=== PATIENT | female | born 1965 | race African-American/Black ===

== ENCOUNTER 2017-01-31 03:54 | Inpatient (IN) | payer MEDICAID ==
--- NOTE | 2017-01-31 04:43 | ER Document Report ---
ED Extremity Problem, Lower - General Chief Complaint: Leg Injury Stated Complaint: FALL/HIP AND LEG PAIN Time Seen by Provider: 01/31/17 04:32 Notes: Patient is a 51-year-old female who comes emergency department by EMS for chief complaint of right hip and knee pain. She states that she was walking outside with her walker when she tripped and landed with the majority of her weight on her right thigh and hip area. She reports right hip and knee pain. She denies head injury, back injury, back or chest pain. Given 65 mcg of fentanyl by EMS. Patient is not on a blood thinner, she has had a left hip replacement and right knee replacement with additional surgery on her left knee reportedly. Only other reported medical history is GERD and Hodgkin's lymphoma in remission. Not on chemotherapy. TRAVEL OUTSIDE OF THE [place] IN LAST 30 DAYS: No - Related Data Allergies/Adverse Reactions: No Known Allergies Allergy (Verified 09/26/14 11:12) Past Medical History - General Information source: Patient - Social History Smoking Status: Current Every Day Smoker Chew tobacco use (# tins/day): No Frequency of alcohol use: Heavy Drug Abuse: None Lives with: Alone Family History: Reviewed & Not Pertinent Pulmonary Medical History: Reports: Hx COPD Denies: Hx Tuberculosis Malignancy Medical History: Reports: Hx Lymphoma Psychiatric Medical History: Denies: Hx Depression Past Surgical History: Reports: Hx Section, Hx Hysterectomy, Hx Orthopedic Surgery - Left hip replacement, right knee, Hx Tonsillectomy, Hx Tubal Ligation. Denies: Hx Pacemaker - Immunizations Hx Diphtheria, Pertussis, Tetanus Vaccination: Yes Review of Systems - Review of Systems Constitutional: No symptoms reported EENT: No symptoms reported Cardiovascular: No symptoms reported Respiratory: No symptoms reported Gastrointestinal: No symptoms reported Genitourinary: No symptoms reported Female Genitourinary: No symptoms reported Musculoskeletal: See HPI Skin: No symptoms reported Hematologic/Lymphatic: No symptoms reported Neurological/Psychological: No symptoms reported Physical Exam - Vital signs Vitals: Temp Pulse Resp BP Pulse Ox 98.2 F 110 H 20 109/74 96 01/31/17 04:06 01/31/17 04:06 01/31/17 04:06 01/31/17 04:06 01/31/17 04:06 Interpretation: Normal - General General appearance: Other - patient responsive, cooperative, appears to be in some pain - HEENT Head: Normocephalic, Atraumatic Eyes: Normal Conjunctiva: Normal Extraocular movements intact: Yes Eyelashes: Normal Pupils: PERRL Mouth/Lips: Normal Mucous membranes: Normal Pharynx: Normal Neck: Normal - Respiratory Respiratory status: No respiratory distress Chest status: Nontender. No: Tender Breath sounds: Normal. No: Decreased air movement, Rhonchi Chest palpation: Normal - Cardiovascular Rhythm: Regular, Tachycardia Heart sounds: Normal auscultation, S1 appreciated, S2 appreciated Murmur: No - Abdominal Inspection: Normal Distension: No distension Bowel sounds: Normal Tenderness: Nontender Organomegaly: No organomegaly - Back Back: Normal, Nontender. No: Tender, Vertebra tenderness - Extremities General upper extremity: Normal inspection, Nontender, Normal color, Normal ROM , Normal temperature General lower extremity: Other - right LE with external rotation; pain over hip/ femur; normal distal pulse and sensation; scarring of both knees extensive; some tenderness over right knee - Neurological Neuro grossly intact: Yes Cognition: Normal Orientation: AAOx4 [place]icia Coma Scale Eye Opening: Spontaneous [place]icia Coma Scale Verbal: Oriented [place]icia Coma Scale Motor: Obeys Commands [place] Coma Scale Total: 15 Speech: Normal Motor strength normal: LUE, RUE, LLE, RLE Sensory: Normal - Psychological Associated symptoms: Agitated - Skin Skin Temperature: Warm Skin Moisture: Dry Skin Color: Normal Course - Re-evaluation Re-evalutation: Patient intoxicated, appears to have a right hip deformity on exam but no neurovascular deficits. No evidence of head injury or back injury, normal neurovascular exam, soft abdomen, no chest pain complaints, no other complaints other than fall on the hip. X-ray showing comminuted fracture of the right hip, right knee with stable findings. Workup ordered, shows stable anemia, some evidence of dehydration, intoxication , patient was given IV fluids, pain medication, after this tachycardia resolved , complains resolved, she is resting comfortably. Discussed with Dr. Alvarez. 01/31/17 07:42 Spoke with orthopedics on-call, Dr. Ahumada, he states that he will admit the patient to the hospital - Vital Signs Vital signs: Temp Pulse Resp BP Pulse Ox 98.2 F 110 H 21 H 109/74 100 01/31/17 04:06 01/31/17 04:06 01/31/17 07:00 01/31/17 04:06 01/31/17 07:00 - Laboratory Result Diagrams: 01/31/17 06:07 01/31/17 06:07 Laboratory results interpreted by me: 01/31/17 01/31/17 01/31/17 06:07 06:07 06:07 RBC 2.41 L Hgb 9.4 L Hct 28.6 L MCV 119 H MCH 38.9 H RDW 16.1 H APTT 22.4 L Chloride 110 H Carbon Dioxide 17 L Direct Bilirubin 0.8 H AST 116 H Urine Protein Urine Blood Ur Leukocyte Esterase 01/31/17 06:33 RBC Hgb Hct MCV MCH RDW APTT Chloride Carbon Dioxide Direct Bilirubin AST Urine Protein 30 H Urine Blood SMALL H Ur Leukocyte Esterase SMALL H Discharge - Discharge Clinical Impression: Fall Qualifiers: Encounter type: initial encounter Qualified Code(s): W19.XXXA - Unspecified fall, initial encounter Closed right hip fracture Qualifiers: Encounter type: initial encounter Qualified Code(s): S72.001A - Fracture of unspecified part of neck of right femur, initial encounter for closed fracture Alcohol intoxication Qualifiers: Complication of substance-induced condition: uncomplicated Qualified Code(s): F10.920 - Alcohol use, unspecified with intoxication, uncomplicated Condition: Stable Disposition: ADMITTED INPATIENT Admitting Provider: Surgicalist Unit Admitted: Surgical Floor Referrals: ABNER WILKINS MD [Primary Care Provider] - Follow up as needed
[2017-01-31] MEDS ORDERED: ONDANSETRON HCL INJ/PF 4 MG/2 ML SDV IV ONE (05:34)
[2017-01-31] MEDS ORDERED: MORPHINE SULFATE 10 MG/ML INJ IV ONE ×2 (05:34→08:18)
--- NOTE | 2017-01-31 05:41 | RADIOLOGY REPORT (SQ) ---
EXAM DESCRIPTION: HIP RIGHT AP/LATERAL COMPLETED DATE/TIME: 01/31/2017 5:30 am REASON FOR STUDY: fall, pain COMPARISON: 12/16/2015. CT, right lower extremity, 04/17/2016. CR, 04/16/2016. NUMBER OF VIEWS: Two views. TECHNIQUE: AP pelvis and additional frog-leg view of the right hip. LIMITATIONS: None. FINDINGS: MINERALIZATION: Normal. RIGHT HIP: Comminuted intertrochanteric fracture /defect mild coxa vera deformity -positioning. No e vidence of healing. LEFT HIP: No fracture or dislocation. No worrisome bone lesions. PUBIS AND ISCHIUM: No fracture. PELVIS: No fracture. SACRUM: No fracture or dislocation. No worrisome bone lesions. LOWER LUMBAR SPINE: No fracture or dislocation. No worrisome bone lesions. No significant disc disea se. SOFT TISSUES: No findings. OTHER: No other significant finding. IMPRESSION: Comminuted intertrochanteric fracture -defects of the right proximal femur. TECHNICAL DOCUMENTATION: JOB ID: [id number]- All Rights Reserved
--- NOTE | 2017-01-31 05:43 | RADIOLOGY REPORT (SQ) ---
EXAM DESCRIPTION: KNEE RIGHT 2 VIEWS COMPLETED DATE/TIME: 01/31/2017 5:30 am REASON FOR STUDY: fall, pain COMPARISON: 01/26/2016. NUMBER OF VIEWS: Two views. TECHNIQUE: AP and lateral radiographic images acquired of the right knee. LIMITATIONS: None. FINDINGS: MINERALIZATION: Osteopenia. BONES: Osteotomy plate and screw fixation of the right distal femur partially imaged near anatomic al ignment. 2 Josephine pin and wire fixation of the patella. JOINT: No effusion. SOFT TISSUES: No soft tissue swelling. No radio-opaque foreign body. OTHER: No other significant finding. IMPRESSION: Prior ORIF of the right distal femur and patella. Moderate bony demineralization. TECHNICAL DOCUMENTATION: JOB ID: [id number] [employer]- All Rights Reserved
[2017-01-31 06:26] LABS: ABSOLUTE BASOPHILS # (AUTO) 0.1 10^3/uL (0.0-0.2); ABSOLUTE EOSINOPHILS # (AUTO) 0.1 10^3/uL (0.0-0.6); ABSOLUTE LYMPHOCYTES (AUTO) 1.8 10^3/uL (0.5-4.7); ABSOLUTE MONOCYTES (AUTO) 0.5 10^3/uL (0.1-1.4); ABSOLUTE NEUT (AUTO) 4.8 10^3/uL (1.7-8.2); BASOPHILS % (AUTO) 1.1 % (0-2); EOSINOPHILS % (AUTO) 1.1 % (0-6); HEMATOCRIT 28.6 % (36.0-47.0); HEMOGLOBIN 9.4 g/dL (12.0-15.5); HGB HCT DIFFERENCE -0.4; LYMPHOCYTES % (AUTO) 24.7 % (13-45); MEAN CORPUSCULAR HEMOGLOBIN 38.9 pg (27.0-33.4); MEAN CORPUSCULAR HGB CONC 32.8 g/dL (32.0-36.0); MEAN CORPUSCULAR VOLUME 119 fl (80-97); MONOCYTES % (AUTO) 7.4 % (3-13); RED BLOOD COUNT 2.41 10^6/uL (3.72-5.28); RED CELL DISTRIBUTION WIDTH 16.1 % (11.5-14.0); SEGMENTED NEUTROPHILS % (AUTO) 65.7 % (42-78); WHITE BLOOD COUNT 7.2 10^3/uL (4.0-10.5)
[2017-01-31 06:41] LABS: ALANINE AMINOTRANSFERASE 49 U/L (9-52); ALBUMIN 3.6 g/dL (3.5-5.0); ALCOHOL 223 mg/dL (NONE DETECTED); ALKALINE PHOSPHATASE 108 U/L (38-126); ANION GAP 16 (5-19); ASPARTATE AMINO TRANSFERASE 116 U/L (14-36); BILIRUBIN,DIRECT 0.8 mg/dL (0.0-0.4); BILIRUBIN,TOTAL 0.9 mg/dL (0.2-1.3); BLOOD UREA NITROGEN 9 mg/dL (7-20); CALCIUM 9.6 mg/dL (8.4-10.2); CARBON DIOXIDE 17 mmol/L (22-30); CHLORIDE 110 mmol/L (98-107); GLUCOSE 91 mg/dL (75-110); POTASSIUM 4.3 mmol/L (3.6-5.0); SODIUM 142.6 mmol/L (137-145); TOTAL PROTEIN 7.2 g/dL (6.3-8.2)
[2017-01-31 06:43] LABS: PROTHROMBIN TIME 14.3 SEC (11.4-15.4)
[2017-01-31 06:44] LABS: PARTIAL THROMBOPLASTIN TIME 22.4 SEC (23.5-35.8)
[2017-01-31] MEDS ORDERED: NORMAL SALINE 1000 ML 1,000 ML IV ONE (06:52)
[2017-01-31 07:04] LABS: AMORPHOUS SEDIMENT,URINE TRACE /HPF; APPEARANCE,URINE CLOUDY; BILIRUBIN,URINE NEGATIVE (NEGATIVE); GLUCOSE, URINE NEGATIVE (NEGATIVE); KETONES,URINE NEGATIVE (NEGATIVE); LEUKOCYTE ESTERASE,URINE SMALL (NEGATIVE); NITRITE,URINE NEGATIVE (NEGATIVE); PROTEIN,URINE 30 mg/dL (NEGATIVE); URINE SPECIFIC GRAVITY 1.008; UROBILINOGEN,URINE NEGATIVE mg/dL (<2.0)
--- NOTE | 2017-01-31 07:35 | RADIOLOGY REPORT (SQ) ---
EXAM DESCRIPTION: CHEST SINGLE VIEW COMPLETED DATE/TIME: 01/31/2017 7:24 am REASON FOR STUDY: pre-op COMPARISON: 04/19/2016. CT, 05/21/2016. EXAM PARAMETERS: NUMBER OF VIEWS: One view. TECHNIQUE: Single frontal radiographic view of the chest acquired. RADIATION DOSE: NA LIMITATIONS: None. FINDINGS: LUNGS AND PLEURA: Moderate interstitial markings of the left lung with. Moderate scar -fi brosis pattern of the right upper lobe. Moderate right lung volume. MEDIASTINUM AND HILAR STRUCTURES: Right hilar fullness. HEART AND VASCULAR STRUCTURES: Heart normal in size. Normal vasculature. BONES: No acute findings. HARDWARE: None in the chest. OTHER: No other significant finding. IMPRESSION: No significant interval change compared with prior exam, 04/19/2016. History of lymphoma . TECHNICAL DOCUMENTATION: JOB ID: [id number]
[2017-01-31] MEDS ORDERED: DEXTROSE 50%-WATER 25 GM/50 ML DISP.SYRIN IV PRN ×2 (09:29)
[2017-01-31] MEDS ORDERED: GLUCAGON,HUMAN RECOMB 1 MG INJ SUBCUT PRN (09:29)
[2017-01-31] MEDS ORDERED: DEXTROSE 40% GEL 15 GM TUBE PO PRN ×2 (09:29)
[2017-01-31] MEDS ORDERED: MORPHINE SULFATE 10 MG/ML INJ IV PRN (09:33)
[2017-01-31] MEDS: OXYCODONE-ACETAMINOPHEN 5-325 MG TABLET PO PRN ×2 (11:21→18:50)
--- NOTE | 2017-01-31 11:26 | EKG REPORT ---
SEVERITY:- BORDERLINE ECG - SINUS TACHYCARDIA LOW VOLTAGE THROUGHOUT BORDERLINE T ABNORMALITIES, ANT-LAT LEADS : Confirmed by: Martha Fletcher 31-Jan-2017 11:25:36
--- NOTE | 2017-01-31 15:21 | PDOC H&P ---
History of Present Illness Admission Date/PCP: 01/31/17 09:29 ABNER WILKINS MD Patient complains of: Hip pain History of Present Illness: MAAME SAENZ is a 51 year old female who sustained a fall when she tripped at her yard onto her right hip. Patient had notable pain and deformity and was unable to weight-bear. She was subsequently brought to the emergency room where she was found to be intoxicated but mainly complaining of right hip discomfort. X-rays demonstrated fracture. Pain worse with any motion. Pain has improved with morphine. Current pain /10. Denies numbness or tingling. Past Medical History Pulmonary Medical History: Reports: Chronic Obstructive Pulmonary Disease (COPD) Denies: Tuberculosis Malignancy Medical History: Reports: Lymphoma Psychiatric Medical History: Denies: Depression Hematology: Reports: Anemia Past Surgical History Past Surgical History: Reports: Section, Hysterectomy, Orthopedic Surgery - Left hip replacement, right knee, Tonsillectomy, Tubal Ligation Denies: Pacemaker Social History Lives with: Alone Smoking Status: Current Every Day Smoker Cigarettes Packs Per Day: 7 Number of Years Smokin Frequency of Alcohol Use: Social Hx Recreational Drug Use: No Drugs: None Hx Prescription Drug Abuse: No Family History Family History: Reviewed & Not Pertinent Parental Family History Reviewed: Yes Children Family History Reviewed: Yes Sibling(s) Family History Reviewed.: Yes Medication/Allergy Home Medications: Aspirin [Radha Chewable Aspirin] 81 mg PO DAILY 01/31/17 Ca/D3/Mag/Zinc/Pk/Bharath/Mgbor [Caltrate 600+D3+Min Chew Tab] 1 each PO DAILY Cholecalciferol (Vitamin D3) [Vitamin D3 1000 Unit Tablet] 1,000 unit PO BID 09/18 Furosemide [Lasix] 40 mg PO DAILY 01/31/17 Magnesium 500 mg PO DAILY 01/31/17 Omeprazole 40 mg PO DAILY 01/31/17 Pnv with Ca,No.74/Iron/FA [Vol-Plus Tablet] 1 tab PO DAILY 01/31/17 Potassium Chloride [Klor-Con 10 Meq Tablet.sa] 10 meq PO DAILY 01/31/17 Allergies/Adverse Reactions: No Known Allergies Allergy (Verified 09/26/14 11:12) Review of Systems All systems: as per PMH Constitutional: ABSENT: chills, fever(s), headache(s), weight gain, weight loss Eyes: ABSENT: visual disturbances Ears: ABSENT: hearing changes Cardiovascular: ABSENT: chest pain, dyspnea on exertion, edema, orthropnea, palpitations Respiratory: ABSENT: cough, hemoptysis Gastrointestinal: PRESENT: heartburn. ABSENT: abdominal pain, constipation, diarrhea, hematemesis, hematochezia, nausea, vomiting Genitourinary: ABSENT: dysuria, hematuria Musculoskeletal: PRESENT: as per HPI Integumentary: ABSENT: rash, wounds Neurological: ABSENT: abnormal gait, abnormal speech, confusion, dizziness, focal weakness, syncope Psychiatric: ABSENT: anxiety, depression, homidical ideation, suicidal ideation Endocrine: ABSENT: cold intolerance, heat intolerance, menstrual abnormalities, polydipsia, polyuria Hematologic/Lymphatic: ABSENT: easy bleeding, easy bruising, lymphadenopathy Physical Exam Vital Signs: Temp Pulse Resp BP Pulse Ox 98.5 F 91 18 116/75 91 L 01/31/17 12:11 01/31/17 12:11 01/31/17 12:11 01/31/17 12:11 01/31/17 12:11 General appearance: PRESENT: no acute distress, disheveled, well-developed, well -nourished Head exam: PRESENT: atraumatic, normocephalic Eye exam: PRESENT: conjunctiva pink, EOMI, PERRLA. ABSENT: scleral icterus Ear exam: PRESENT: normal external ear exam Mouth exam: PRESENT: moist, tongue midline Teeth exam: PRESENT: dental caries Neck exam: PRESENT: full ROM. ABSENT: carotid bruit, JVD, lymphadenopathy, thyromegaly Respiratory exam: PRESENT: unlabored Cardiovascular exam: PRESENT: RRR. ABSENT: diastolic murmur, rubs, systolic murmur Pulses: PRESENT: normal dorsalis pedis pul, +2 pedal pulses bilateral Vascular exam: PRESENT: normal capillary refill GI/Abdominal exam: PRESENT: normal bowel sounds, soft. ABSENT: distended, guarding, mass, organolmegaly, rebound, tenderness Rectal exam: PRESENT: deferred Musculoskeletal exam: PRESENT: other - Right hip: Short and externally rotated. Postoperative scar along the lateral aspect of the knee. Positive logroll. Intact plantar flexion/dorsiflexion however limited secondary to pain. Dorsalis pedis pulse 2+. Cap refill less than 2 seconds. No discomfort with range of motion or tenderness along the bilateral upper extremities or left lower extremity. Neurological exam: PRESENT: alert, awake, oriented to person, oriented to place , oriented to time, oriented to situation, CN II-XII grossly intact. ABSENT: motor sensory deficit Psychiatric exam: PRESENT: appropriate affect, normal mood. ABSENT: homicidal ideation, suicidal ideation Skin exam: PRESENT: dry, intact, warm. ABSENT: cyanosis, rash Results Impressions: Hip/Pelvis X-Ray 01/31/17 04:40 IMPRESSION: Comminuted intertrochanteric fracture -defects of the right proximal femur. Knee X-Ray 01/31/17 04:40 IMPRESSION: Prior ORIF of the right distal femur and patella. Moderate bony demineralization. Chest X-Ray 01/31/17 07:07 IMPRESSION: No significant interval change compared with prior exam, 2015. History of lymphoma. Status: Image reviewed by tn - Radiographs have been reviewed which demonstrate comminuted intertrochanteric hip fracture with short varus alignment. Assessment & Plan - Diagnosis (1) Intertrochanteric fracture Qualifiers: Encounter type: initial encounter Fracture type: closed Laterality : right Is this a current diagnosis for this admission?: YesPlan: Patient sustained a intertrochanteric fracture of her right hip. Radiographs confirm diagnosis previous distal femur fracture appears healed without evidence of refracture. Today we discussed treatment options and patient has had a cephalo-medullary nail of the left hip which healed successfully. At this point we will set her up for operative intervention in the next 48 hours for definitive treatment of her right hip. Risks and benefits of the surgical procedure were explained to the patient who verbalized understanding. We will consult Dr. Wilkins for medical optimization. Patient consented for right hip intramedullary nail risks include anesthetic complications, excessive bleeding, infection, injury to surrounding nerves, vessels and tendons, bruising , healing difficulties, scar formation, posttraumatic arthritis and any unforseen complication.
[2017-01-31] MEDS ORDERED: MORPHINE SULFATE 10 MG/ML INJ ONE (15:38)
[2017-01-31] MEDS: MORPHINE SULFATE 10 MG/ML INJ IV PRN (20:18)
[2017-01-31] MEDS: ONDANSETRON HCL INJ/PF 4 MG/2 ML SDV IV PRN (20:18)
[2017-02-01] MEDS: MORPHINE SULFATE 10 MG/ML INJ IV PRN ×6 (00:36→20:00)
[2017-02-01] MEDS: ONDANSETRON HCL INJ/PF 4 MG/2 ML SDV IV PRN (04:29)
[2017-02-01 05:22] LABS: ANION GAP 11 (5-19); BLOOD UREA NITROGEN 8 mg/dL (7-20); CARBON DIOXIDE 22 mmol/L (22-30); CHLORIDE 103 mmol/L (98-107); CREATININE RESULT 0.69 mg/dL (0.52-1.25); GLUCOSE 91 mg/dL (75-110); POTASSIUM 4.1 mmol/L (3.6-5.0); SODIUM 135.5 mmol/L (137-145)
[2017-02-01 05:37] LABS: ABSOLUTE EOSINOPHILS # (AUTO) 0.2 10^3/uL (0.0-0.6); ABSOLUTE LYMPHOCYTES (AUTO) 1.1 10^3/uL (0.5-4.7); ABSOLUTE MONOCYTES (AUTO) 0.4 10^3/uL (0.1-1.4); ABSOLUTE NEUT (AUTO) 5.5 10^3/uL (1.7-8.2); BASOPHILS % (AUTO) 0.5 % (0-2); EOSINOPHILS % (AUTO) 2.2 % (0-6); HEMATOCRIT 26.7 % (36.0-47.0); HGB HCT DIFFERENCE 0.3; LYMPHOCYTES % (AUTO) 15.6 % (13-45); MEAN CORPUSCULAR HEMOGLOBIN 39.1 pg (27.0-33.4); MEAN CORPUSCULAR HGB CONC 33.7 g/dL (32.0-36.0); MEAN CORPUSCULAR VOLUME 116 fl (80-97); RED CELL DISTRIBUTION WIDTH 15.3 % (11.5-14.0); SEGMENTED NEUTROPHILS % (AUTO) 76.7 % (42-78); WHITE BLOOD COUNT 7.2 10^3/uL (4.0-10.5)
[2017-02-01 05:43] LABS: TOXIC VACUOLATION PRESENT
[2017-02-01 05:44] LABS: ANISOCYTOSIS SLIGHT; TARGET CELLS 1+
--- NOTE | 2017-02-01 06:49 | PDOC PROGRESS REPORT ---
Subjective Progress Note for:: 02/01/17 Subjective:: Patient complaining of right hip pain Physical Exam Vital Signs: Temp Pulse Resp BP Pulse Ox 36.5 C 90 18 121/85 99 02/01/17 00:12 02/01/17 00:12 02/01/17 00:12 02/01/17 00:12 02/01/17 00:12 Intake & Output 01/30/17 01/31/17 02/01/17 06:59 06:59 06:59 Intake Total 3010 Output Total 1225 Balance 1785 General appearance: PRESENT: mild distress Head exam: PRESENT: normocephalic Eye exam: PRESENT: EOMI Respiratory exam: PRESENT: unlabored Cardiovascular exam: PRESENT: RRR Pulses: PRESENT: +1 pedal pulses bilateral Vascular exam: PRESENT: normal capillary refill GI/Abdominal exam: PRESENT: soft Rectal exam: PRESENT: deferred Extremities exam: PRESENT: other - Lower extremity shortened and externally rotated Neurological exam: PRESENT: alert, awake, oriented to person, oriented to place , oriented to time, oriented to situation. ABSENT: motor sensory deficit Psychiatric exam: PRESENT: appropriate affect, normal mood. ABSENT: homicidal ideation, suicidal ideation Skin exam: PRESENT: dry, intact, warm. ABSENT: cyanosis, rash Results Laboratory Results: 02/01/17 04:12 02/01/17 04:12 02/01/17 02/01/17 04:12 04:12 WBC 7.2 RBC 2.30 L Hgb 9.0 L Hct 26.7 L MCV 116 H MCH 39.1 H MCHC 33.7 RDW 15.3 H Plt Count 143 L Seg Neutrophils % 76.7 Lymphocytes % 15.6 Monocytes % 5.0 Eosinophils % 2.2 Basophils % 0.5 Absolute Neutrophils 5.5 Absolute Lymphocytes 1.1 Absolute Monocytes 0.4 Absolute Eosinophils 0.2 Absolute Basophils 0.0 Sodium 135.5 L Potassium 4.1 Chloride 103 Carbon Dioxide 22 Anion Gap 11 BUN 8 Creatinine 0.69 Est GFR ( Amer) > 60 Est GFR (Non-Af Amer) > 60 Glucose 91 Calcium 9.0 Impressions: Hip/Pelvis X-Ray 01/31/17 04:40 IMPRESSION: Comminuted intertrochanteric fracture -defects of the right proximal femur. Knee X-Ray 01/31/17 04:40 IMPRESSION: Prior ORIF of the right distal femur and patella. Moderate bony demineralization. Chest X-Ray 01/31/17 07:07 IMPRESSION: No significant interval change compared with prior exam, 2015. History of lymphoma. Status: Imported from PACS Assessment & Plan - Diagnosis (1) Closed right hip fracture Qualifiers: Encounter type: initial encounter Qualified Code(s): S72.001A - Fracture of unspecified part of neck of right femur, initial encounter for closed fracture Is this a current diagnosis for this admission?: YesPlan: Anticipate an open reduction internal fixation of choice anesthesia pending OR availability - Time Time Spent with patient: 15-24 minutes Anticipated discharge: SNF Within: within 48 hours
[2017-02-01] MEDS ORDERED: RINGERS SOLUTION,LACTATED 1,000 ML IV PRN ×3 (08:00→12:49)
[2017-02-01] MEDS ORDERED: CEFAZOLIN 2 GM/D5W RTU 2 GM/50 ML RTUPB IV PRN (08:48)
[2017-02-01] MEDS ORDERED: FENTANYL CITRATE INJ/PF 100 MCG/2 ML AMPUL ONE (10:47)
[2017-02-01] MEDS ORDERED: HYDROMORPHONE HCL INJ/PF 2 MG/ML AMPULE ONE (10:47)
[2017-02-01] MEDS ORDERED: MIDAZOLAM 2 MG/2 ML INJ ONE (10:48)
[2017-02-01] MEDS ORDERED: PROPOFOL INJ 200 MG/20 ML VIAL IV ONE (10:48)
[2017-02-01] MEDS ORDERED: IBUPROFEN INJ 800 MG/8 ML VIAL IV ONE (10:48)
[2017-02-01] MEDS ORDERED: EPHEDRINE SULFATE INJ 50 MG/1 ML AMPULE ONE (10:48)
[2017-02-01] MEDS ORDERED: CEFAZOLIN INJ 1 GM VIAL ONE (11:08)
[2017-02-01] MEDS ORDERED: MEPERIDINE HCL/PF INJ 25 MG/1 ML DISP.SYRIN IV PRN (11:41)
[2017-02-01] MEDS ORDERED: DIPHENHYDRAMINE HCL 50 MG/ML VIAL IV PRN (11:41)
[2017-02-01] MEDS ORDERED: FENTANYL CITRATE INJ/PF 100 MCG/2 ML AMPUL IV PRN ×3 (11:41)
--- NOTE | 2017-02-01 12:09 | Operative Report ---
Operative Report DATE OF SURGERY: 02/01/17 PREOPERATIVE DIAGNOSIS: Right intertrochanteric femur fracture OPERATION: ORIF right hip fracture SURGEON: VICTORIA AVILA ANESTHESIA: Spinal ESTIMATED BLOOD LOSS: 100 PROCEDURE: Patient supine on the fracture table the right lower extremities manipulated under fluoroscopic guidance to affect an anatomic reduction. Subsequently the skin is prepped and draped in a sterile fashion. Because of an existing distal femoral lateral plate a decision was made to use a short and avoid the distal hardware. Is fully recognized that between the gamma nail and the distal plate is a stress riser. A pin is placed percutaneously into the greater trochanter down the proximal medullary canal. A combined reamers to fashion a cortical opening. Subsequently a [employer] gamma 3 nail, 125 by 11 mm x 180 mm is advanced down the femoral canal to appropriate depth the proximal interlock. The 95 screw was placed for proximal interlock uneventfully. A distal interlock is placed through the extramedullary alignment system and with fluoroscopic evaluation the screw did not interlock through the existing nail. The screw was removed. Freehand screw was placed through the distal interlock of the nail measuring 40 mm. This point the wounds were irrigated. The closure was interrupted Vicryl followed by yon. Sterile compressive dressings applied and the patient's return to the PACU in satisfactory condition.
[2017-02-01] MEDS ORDERED: ALBUTEROL SULFATE 0.083% NEB 2.5 MG/3 ML AMPUL NEB ONE (12:27)
--- NOTE | 2017-02-01 12:43 | RADIOLOGY REPORT (SQ) ---
EXAM DESCRIPTION: HIP IN OPERATING RM; NO CHG FLUORO COMPLETED DATE/TIME: 02/01/2017 12:27 pm REASON FOR STUDY: IM NAIL RT HIP COMPARISON: None. FLUOROSCOPY TIME: 0.8 minutes 7 images saved to PACS. TECHNIQUE: Intra-operative images acquired during surgical procedure to evaluate progress. NUMBER OF IMAGES: 7 LIMITATIONS: None. FINDINGS: Jamin and hip compression screw fixation of femoral neck fracture. IMPRESSION: IMAGE(S) OBTAINED DURING PROCEDURE. COMMENT: Quality ID [id number]: Final reports for procedures using fluoroscopy that document radiation exp osure indices, or exposure time and number of fluorographic images (if radiation exposure indices are not available) Please consult full operative report of the attending physician for description of the procedure. TECHNICAL DOCUMENTATION: JOB ID: [id number] [employer]- All Rights Reserved
--- NOTE | 2017-02-01 12:43 | RADIOLOGY REPORT (SQ) ---
EXAM DESCRIPTION: HIP IN OPERATING RM; NO CHG FLUORO COMPLETED DATE/TIME: 02/01/2017 12:27 pm REASON FOR STUDY: IM NAIL RT HIP COMPARISON: None. FLUOROSCOPY TIME: 0.8 minutes 7 images saved to PACS. TECHNIQUE: Intra-operative images acquired during surgical procedure to evaluate progress. NUMBER OF IMAGES: 7 LIMITATIONS: None. FINDINGS: Jamin and hip compression screw fixation of femoral neck fracture. IMPRESSION: IMAGE(S) OBTAINED DURING PROCEDURE. COMMENT: Quality ID [id number]: Final reports for procedures using fluoroscopy that document radiation exp osure indices, or exposure time and number of fluorographic images (if radiation exposure indices are not available) Please consult full operative report of the attending physician for description of the procedure. TECHNICAL DOCUMENTATION: JOB ID: [id number] [employer]- All Rights Reserved
[2017-02-01] MEDS ORDERED: ONDANSETRON HCL INJ/PF 4 MG/2 ML SDV IV PRN (12:45)
[2017-02-01] MEDS ORDERED: LIDOCAINE 2% INJ-PF (20 MG/ML) 10 ML AMPUL ONE (13:26)
[2017-02-01] MEDS ORDERED: ONDANSETRON HCL INJ/PF 4 MG/2 ML SDV ONE (13:26)
[2017-02-01] MEDS ORDERED: DEXAMETHASONE SOD PHOSPHATE INJ 4 MG/1 ML VIAL ONE (13:26)
[2017-02-01] MEDS: CEFAZOLIN 2 GM/D5W RTU 2 GM/50 ML RTUPB IV SCH (17:43)
[2017-02-01] MEDS: RIVAROXABAN 10 MG TABLET PO SCH (21:15)
[2017-02-01] MEDS: OXYCODONE HCL IR 5 MG TABLET PO PRN (21:15)
[2017-02-02] MEDS: MORPHINE SULFATE 10 MG/ML INJ IV PRN ×3 (01:21→16:28)
[2017-02-02] MEDS: CEFAZOLIN 2 GM/D5W RTU 2 GM/50 ML RTUPB IV SCH (01:26)
[2017-02-02] MEDS: OXYCODONE HCL IR 5 MG TABLET PO PRN ×3 (04:42→19:19)
[2017-02-02 05:46] LABS: ANION GAP 9 (5-19); BLOOD UREA NITROGEN 4 mg/dL (7-20); CALCIUM 9.1 mg/dL (8.4-10.2); CARBON DIOXIDE 24 mmol/L (22-30); CHLORIDE 102 mmol/L (98-107); CREATININE RESULT 0.64 mg/dL (0.52-1.25); GLUCOSE 103 mg/dL (75-110); POTASSIUM 4.4 mmol/L (3.6-5.0); SODIUM 134.8 mmol/L (137-145)
[2017-02-02 05:54] LABS: ABSOLUTE BASOPHILS # (AUTO) 0.1 10^3/uL (0.0-0.2); ABSOLUTE LYMPHOCYTES (AUTO) 1.2 10^3/uL (0.5-4.7); ABSOLUTE MONOCYTES (AUTO) 0.6 10^3/uL (0.1-1.4); ABSOLUTE NEUT (AUTO) 6.7 10^3/uL (1.7-8.2); BASOPHILS % (AUTO) 0.7 % (0-2); EOSINOPHILS % (AUTO) 0.5 % (0-6); HEMATOCRIT 24.8 % (36.0-47.0); HEMOGLOBIN 8.4 g/dL (12.0-15.5); HGB HCT DIFFERENCE 0.4; LYMPHOCYTES % (AUTO) 14.3 % (13-45); MEAN CORPUSCULAR HEMOGLOBIN 39.2 pg (27.0-33.4); MEAN CORPUSCULAR HGB CONC 33.8 g/dL (32.0-36.0); MEAN CORPUSCULAR VOLUME 116 fl (80-97); RED BLOOD COUNT 2.14 10^6/uL (3.72-5.28); RED CELL DISTRIBUTION WIDTH 14.7 % (11.5-14.0); SEGMENTED NEUTROPHILS % (AUTO) 77.5 % (42-78); WHITE BLOOD COUNT 8.6 10^3/uL (4.0-10.5)
[2017-02-02 06:53] LABS: ANISOCYTOSIS SLIGHT; TOXIC VACUOLATION PRESENT
[2017-02-02 06:54] LABS: TARGET CELLS 1+
--- NOTE | 2017-02-02 08:16 | PDOC PROGRESS REPORT ---
Subjective Progress Note for:: 02/02/17 Subjective:: Patient was seen and evaluated this morning. Pain controlled with Percocet and morphine. Denies numbness or tingling. Denies chest pain shortness of breath. Physical Exam Vital Signs: Temp Pulse Resp BP Pulse Ox 99.4 F 102 H 15 116/79 95 02/02/17 04:09 02/02/17 04:09 02/02/17 04:09 02/02/17 04:09 02/02/17 04:09 Intake & Output 02/01/17 02/02/17 02/03/17 06:59 06:59 06:59 Intake Total 3010 4120 Output Total 1225 2100 Balance 1785 2019 Weight 78.3 kg Musculoskeletal exam: PRESENT: other - Right hip: Bloody drainage along the dressing by the swollen soft and compressible. Intact plantar flexion/ dorsiflexion. Cap refill less than 2 seconds. Results Laboratory Results: 02/02/17 04:42 02/02/17 04:42 02/02/17 02/02/17 04:42 04:42 WBC 8.6 RBC 2.14 L Hgb 8.4 L Hct 24.8 L MCV 116 H MCH 39.2 H MCHC 33.8 RDW 14.7 H Plt Count 126 L Seg Neutrophils % 77.5 Lymphocytes % 14.3 Monocytes % 7.0 Eosinophils % 0.5 Basophils % 0.7 Absolute Neutrophils 6.7 Absolute Lymphocytes 1.2 Absolute Monocytes 0.6 Absolute Eosinophils 0.0 Absolute Basophils 0.1 Sodium 134.8 L Potassium 4.4 Chloride 102 Carbon Dioxide 24 Anion Gap 9 BUN 4 L Creatinine 0.64 Est GFR ( Amer) > 60 Est GFR (Non-Af Amer) > 60 Glucose 103 Calcium 9.1 Impressions: Hip/Pelvis X-Ray 01/31/17 04:40 IMPRESSION: Comminuted intertrochanteric fracture -defects of the right proximal femur. Knee X-Ray 01/31/17 04:40 IMPRESSION: Prior ORIF of the right distal femur and patella. Moderate bony demineralization. Chest X-Ray 01/31/17 07:07 IMPRESSION: No significant interval change compared with prior exam, 2015. History of lymphoma. Fluoroscopy 02/01/17 00:00 IMPRESSION: IMAGE(S) OBTAINED DURING PROCEDURE. Hip X-Ray 02/01/17 00:00 IMPRESSION: IMAGE(S) OBTAINED DURING PROCEDURE. Assessment & Plan - Diagnosis (1) Intertrochanteric fracture Qualifiers: Encounter type: initial encounter Fracture type: closed Laterality : right Is this a current diagnosis for this admission?: YesPlan: Postop day #1 status post IM nail right hip #1 pain control #2 weightbearing as tolerated #3 Xarelto for DVT prophylaxis #4 acute on chronic anemia we will continue to monitor #5 Discharge Planning. Patient will require [facility] facility.
[2017-02-02] MEDS: RIVAROXABAN 10 MG TABLET PO SCH (22:29)
[2017-02-03] MEDS: OXYCODONE HCL IR 5 MG TABLET PO PRN ×4 (01:16→21:27)
[2017-02-03 05:31] LABS: ANION GAP 8 (5-19); BLOOD UREA NITROGEN 5 mg/dL (7-20); CALCIUM 8.9 mg/dL (8.4-10.2); CARBON DIOXIDE 26 mmol/L (22-30); CHLORIDE 101 mmol/L (98-107); CREATININE RESULT 0.62 mg/dL (0.52-1.25); GLUCOSE 98 mg/dL (75-110); POTASSIUM 3.9 mmol/L (3.6-5.0); SODIUM 134.5 mmol/L (137-145)
[2017-02-03 06:01] LABS: ABSOLUTE BASOPHILS # (AUTO) 0.1 10^3/uL (0.0-0.2); ABSOLUTE EOSINOPHILS # (AUTO) 0.2 10^3/uL (0.0-0.6); ABSOLUTE LYMPHOCYTES (AUTO) 1.5 10^3/uL (0.5-4.7); ABSOLUTE MONOCYTES (AUTO) 0.6 10^3/uL (0.1-1.4); ABSOLUTE NEUT (AUTO) 5.3 10^3/uL (1.7-8.2); BASOPHILS % (AUTO) 0.9 % (0-2); EOSINOPHILS % (AUTO) 2.8 % (0-6); HEMATOCRIT 23.6 % (36.0-47.0); HGB HCT DIFFERENCE -1.1; LYMPHOCYTES % (AUTO) 20.1 % (13-45); MEAN CORPUSCULAR HGB CONC 31.9 g/dL (32.0-36.0); MEAN CORPUSCULAR VOLUME 116 fl (80-97); MONOCYTES % (AUTO) 7.6 % (3-13); RED BLOOD COUNT 2.03 10^6/uL (3.72-5.28); RED CELL DISTRIBUTION WIDTH 14.9 % (11.5-14.0); SEGMENTED NEUTROPHILS % (AUTO) 68.6 % (42-78); WHITE BLOOD COUNT 7.7 10^3/uL (4.0-10.5)
[2017-02-03 06:33] LABS: HEMOGLOBIN 7.5 g/dL (12.0-15.5); TOXIC VACUOLATION PRESENT
[2017-02-03 06:34] LABS: ANISOCYTOSIS 1+; HYPOCHROMASIA SLIGHT; OVALOCYTES SLIGHT; POIKILOCYTOSIS SLIGHT; POLYCHROMASIA SLIGHT; SCHISTOCYTES SLIGHT; TARGET CELLS SLIGHT
--- NOTE | 2017-02-03 09:12 | PDOC PROGRESS REPORT ---
Subjective Progress Note for:: 02/03/17 Physical Exam Vital Signs: Temp Pulse Resp BP Pulse Ox 37.6 C 95 18 116/75 94 02/03/17 08:00 02/03/17 08:00 02/03/17 08:00 02/03/17 08:00 02/03/17 08:00 Intake & Output 02/02/17 02/03/17 02/04/17 06:59 06:59 06:59 Intake Total 4120 2400 Output Total 2100 Balance 2019 2400 Weight 78.3 kg General appearance: PRESENT: no acute distress Head exam: PRESENT: normocephalic Respiratory exam: PRESENT: unlabored Cardiovascular exam: PRESENT: RRR Vascular exam: PRESENT: normal capillary refill GI/Abdominal exam: PRESENT: soft Rectal exam: PRESENT: deferred Extremities exam: PRESENT: other - Right lower extremity with minor postoperative drainage. Leg lengths are equal. Distal neurovascular examination is intact. Neurological exam: PRESENT: alert, awake, oriented to person, oriented to place , oriented to time, oriented to situation, CN II-XII grossly intact. ABSENT: motor sensory deficit Psychiatric exam: PRESENT: appropriate affect, normal mood. ABSENT: homicidal ideation, suicidal ideation Skin exam: PRESENT: dry, intact, warm. ABSENT: cyanosis, rash Results Laboratory Results: 02/03/17 04:42 02/03/17 04:42 02/03/17 02/03/17 04:42 04:42 WBC 7.7 RBC 2.03 L Hgb 7.5 L Hct 23.6 L MCV 116 H MCH 37.0 H MCHC 31.9 L RDW 14.9 H Plt Count 74 L Seg Neutrophils % 68.6 Lymphocytes % 20.1 Monocytes % 7.6 Eosinophils % 2.8 Basophils % 0.9 Absolute Neutrophils 5.3 Absolute Lymphocytes 1.5 Absolute Monocytes 0.6 Absolute Eosinophils 0.2 Absolute Basophils 0.1 Sodium 134.5 L Potassium 3.9 Chloride 101 Carbon Dioxide 26 Anion Gap 8 BUN 5 L Creatinine 0.62 Est GFR ( Amer) > 60 Est GFR (Non-Af Amer) > 60 Glucose 98 Calcium 8.9 Impressions: Hip/Pelvis X-Ray 01/31/17 04:40 IMPRESSION: Comminuted intertrochanteric fracture -defects of the right proximal femur. Knee X-Ray 01/31/17 04:40 IMPRESSION: Prior ORIF of the right distal femur and patella. Moderate bony demineralization. Chest X-Ray 01/31/17 07:07 IMPRESSION: No significant interval change compared with prior exam, 2015. History of lymphoma. Fluoroscopy 02/01/17 00:00 IMPRESSION: IMAGE(S) OBTAINED DURING PROCEDURE. Hip X-Ray 02/01/17 00:00 IMPRESSION: IMAGE(S) OBTAINED DURING PROCEDURE. Status: Imported from PACS Assessment & Plan - Diagnosis (1) Closed right hip fracture Qualifiers: Encounter type: initial encounter Qualified Code(s): S72.001A - Fracture of unspecified part of neck of right femur, initial encounter for closed fracture Is this a current diagnosis for this admission?: YesPlan: Be to mobilize with physical therapy and weightbearing as tolerated basis. (2) Acute blood loss as cause of postoperative anemia Is this a current diagnosis for this admission?: YesPlan: Patient to receive 2 units of packed red blood cells today and repeat laboratory studies in the morning - Time Time Spent with patient: 15-24 minutes Anticipated discharge: SNF Within: within 48 hours
[2017-02-03] MEDS: MORPHINE SULFATE 10 MG/ML INJ IV PRN (10:39)
[2017-02-03] MEDS: RIVAROXABAN 10 MG TABLET PO SCH (21:27)
[2017-02-04] MEDS: OXYCODONE HCL IR 5 MG TABLET PO PRN ×4 (03:24→23:17)
--- NOTE | 2017-02-04 07:14 | PDOC PROGRESS REPORT ---
Subjective Progress Note for:: 02/04/17 Subjective:: Patient with complaints of discomfort. Physical Exam Vital Signs: Temp Pulse Resp BP Pulse Ox 37.2 C 92 16 121/76 100 02/04/17 03:25 02/04/17 03:25 02/04/17 03:25 02/04/17 03:25 02/04/17 03:25 Intake & Output 02/03/17 02/04/17 02/05/17 06:59 06:59 06:59 Intake Total 2400 1955 Balance 2400 1955 General appearance: PRESENT: mild distress Head exam: PRESENT: normocephalic Respiratory exam: PRESENT: unlabored Cardiovascular exam: PRESENT: RRR Pulses: PRESENT: +1 pedal pulses bilateral Vascular exam: PRESENT: normal capillary refill GI/Abdominal exam: PRESENT: soft Extremities exam: PRESENT: other - Extremity dressings clean dry and intact. Leg lengths are equal. Results Laboratory Results: 02/03/17 10:20 Blood Type B POSITIVE Antibody Screen NEGATIVE Impressions: Hip/Pelvis X-Ray 01/31/17 04:40 IMPRESSION: Comminuted intertrochanteric fracture -defects of the right proximal femur. Knee X-Ray 01/31/17 04:40 IMPRESSION: Prior ORIF of the right distal femur and patella. Moderate bony demineralization. Chest X-Ray 01/31/17 07:07 IMPRESSION: No significant interval change compared with prior exam, 2015. History of lymphoma. Fluoroscopy 02/01/17 00:00 IMPRESSION: IMAGE(S) OBTAINED DURING PROCEDURE. Hip X-Ray 02/01/17 00:00 IMPRESSION: IMAGE(S) OBTAINED DURING PROCEDURE. Assessment & Plan - Diagnosis (1) Closed right hip fracture Qualifiers: Encounter type: initial encounter Qualified Code(s): S72.001A - Fracture of unspecified part of neck of right femur, initial encounter for closed fracture Is this a current diagnosis for this admission?: YesPlan: With limited progress with physical therapy yesterday. (2) Acute blood loss as cause of postoperative anemia Is this a current diagnosis for this admission?: YesPlan: Deep 2 units of packed red blood cells yesterday. Posttransfusion crit is pending. - Time Time Spent with patient: 15-24 minutes Anticipated discharge: SNF Within: when bed available
[2017-02-04 07:22] LABS: ANION GAP 7 (5-19); BLOOD UREA NITROGEN 6 mg/dL (7-20); CARBON DIOXIDE 26 mmol/L (22-30); CHLORIDE 100 mmol/L (98-107); CREATININE RESULT 0.57 mg/dL (0.52-1.25); GLUCOSE 99 mg/dL (75-110); SODIUM 133.3 mmol/L (137-145)
[2017-02-04 07:27] LABS: ABSOLUTE BASOPHILS # (AUTO) 0.1 10^3/uL (0.0-0.2); ABSOLUTE EOSINOPHILS # (AUTO) 0.2 10^3/uL (0.0-0.6); ABSOLUTE LYMPHOCYTES (AUTO) 1.6 10^3/uL (0.5-4.7); ABSOLUTE MONOCYTES (AUTO) 0.9 10^3/uL (0.1-1.4); ABSOLUTE NEUT (AUTO) 7.2 10^3/uL (1.7-8.2); BASOPHILS % (AUTO) 0.7 % (0-2); EOSINOPHILS % (AUTO) 2.2 % (0-6); HEMATOCRIT 29.8 % (36.0-47.0); HGB HCT DIFFERENCE 0.2; LYMPHOCYTES % (AUTO) 16.4 % (13-45); MEAN CORPUSCULAR HEMOGLOBIN 35.7 pg (27.0-33.4); MEAN CORPUSCULAR HGB CONC 33.6 g/dL (32.0-36.0); MONOCYTES % (AUTO) 8.9 % (3-13); RED CELL DISTRIBUTION WIDTH 21.2 % (11.5-14.0); SEGMENTED NEUTROPHILS % (AUTO) 71.8 % (42-78)
[2017-02-04 07:43] LABS: MEAN CORPUSCULAR VOLUME 106 fl (80-97)
[2017-02-04 07:55] LABS: ANISOCYTOSIS 3+; POLYCHROMASIA SLIGHT; TARGET CELLS 1+; TOXIC GRANULATION SLIGHT
[2017-02-04 07:56] LABS: PLATELET CLUMPS PRESENT
[2017-02-04 07:58] LABS: TOXIC VACUOLATION PRESENT
[2017-02-04] MEDS: MORPHINE SULFATE 10 MG/ML INJ IV PRN (15:13)
[2017-02-04] MEDS: RIVAROXABAN 10 MG TABLET PO SCH (21:32)
[2017-02-05] MEDS: OXYCODONE HCL IR 5 MG TABLET PO PRN ×5 (03:21→21:02)
--- NOTE | 2017-02-05 07:01 | PDOC PROGRESS REPORT ---
Subjective Progress Note for:: 02/05/17 Subjective:: Patient complains of pain in the right lower extremity and immobility Physical Exam Vital Signs: Temp Pulse Resp BP Pulse Ox 37.7 C 93 19 122/81 100 02/05/17 00:00 02/05/17 00:00 02/05/17 00:00 02/05/17 00:00 02/05/17 00:00 Intake & Output 02/03/17 02/04/17 02/05/17 06:59 06:59 06:59 Intake Total 2400 1955 1255 Balance 2400 1955 1255 Weight 77 kg General appearance: PRESENT: no acute distress, disheveled Head exam: PRESENT: normocephalic Respiratory exam: PRESENT: unlabored Cardiovascular exam: PRESENT: RRR Vascular exam: PRESENT: normal capillary refill GI/Abdominal exam: PRESENT: soft Extremities exam: PRESENT: other - Right lower extremity distal dressing has some drainage which is dry. Leg lengths are equal. Distal neurovascular examination is intact. Passive range of motion right lower extremity is painful. Neurological exam: PRESENT: alert, awake, oriented to person, oriented to place , oriented to time, oriented to situation. ABSENT: motor sensory deficit Psychiatric exam: PRESENT: appropriate affect, normal mood. ABSENT: homicidal ideation, suicidal ideation Skin exam: PRESENT: dry, intact, warm. ABSENT: cyanosis, rash Results Laboratory Results: 02/04/17 06:53 02/04/17 06:53 02/04/17 02/04/17 06:53 06:53 WBC 10.0 RBC 2.80 L Hgb 10.0 L D Hct 29.8 L MCV 106 H D MCH 35.7 H MCHC 33.6 RDW 21.2 H Plt Count 137 L Seg Neutrophils % 71.8 Lymphocytes % 16.4 Monocytes % 8.9 Eosinophils % 2.2 Basophils % 0.7 Absolute Neutrophils 7.2 Absolute Lymphocytes 1.6 Absolute Monocytes 0.9 Absolute Eosinophils 0.2 Absolute Basophils 0.1 Sodium 133.3 L Potassium 4.0 Chloride 100 Carbon Dioxide 26 Anion Gap 7 BUN 6 L Creatinine 0.57 Est GFR ( Amer) > 60 Est GFR (Non-Af Amer) > 60 Glucose 99 Calcium 9.0 Impressions: Hip/Pelvis X-Ray 01/31/17 04:40 IMPRESSION: Comminuted intertrochanteric fracture -defects of the right proximal femur. Knee X-Ray 01/31/17 04:40 IMPRESSION: Prior ORIF of the right distal femur and patella. Moderate bony demineralization. Chest X-Ray 01/31/17 07:07 IMPRESSION: No significant interval change compared with prior exam, 2015. History of lymphoma. Fluoroscopy 02/01/17 00:00 IMPRESSION: IMAGE(S) OBTAINED DURING PROCEDURE. Hip X-Ray 02/01/17 00:00 IMPRESSION: IMAGE(S) OBTAINED DURING PROCEDURE. Status: Imported from PACS Assessment & Plan - Diagnosis (1) Closed right hip fracture Qualifiers: Encounter type: initial encounter Qualified Code(s): S72.001A - Fracture of unspecified part of neck of right femur, initial encounter for closed fracture Is this a current diagnosis for this admission?: YesPlan: With minimal progress with physical therapy. Patient reports intent to be discharged home and attend outpatient physical therapy. At this point her functional level will not permit this. Hopefully she will make progress in physical therapy over the next day or 2. (2) Acute blood loss as cause of postoperative anemia Is this a current diagnosis for this admission?: YesPlan: Transfusion hematocrit is a 29.8% - Time Time Spent with patient: 15-24 minutes Anticipated discharge: Home with Homehealth Within: Other
[2017-02-05] MEDS: MORPHINE SULFATE 10 MG/ML INJ IV PRN (14:16)
[2017-02-05] MEDS: RIVAROXABAN 10 MG TABLET PO SCH (21:02)
[2017-02-06] MEDS: OXYCODONE HCL IR 5 MG TABLET PO PRN ×6 (01:13→23:36)
[2017-02-06] MEDS: MORPHINE SULFATE 10 MG/ML INJ IV PRN ×2 (08:34→21:37)
[2017-02-06] MEDS: RIVAROXABAN 10 MG TABLET PO SCH (21:36)
[2017-02-07] MEDS: MORPHINE SULFATE 10 MG/ML INJ IV PRN ×4 (01:38→19:45)
[2017-02-07] MEDS: OXYCODONE HCL IR 5 MG TABLET PO PRN ×4 (05:21→19:59)
--- NOTE | 2017-02-07 16:53 | PDOC PROGRESS REPORT ---
Subjective Progress Note for:: 02/06/17 Subjective:: Patient resting comfortably in bed. No issues overnight Physical Exam Vital Signs: Temp Pulse Resp BP Pulse Ox 37.3 C 116 H 18 93/65 L 92 02/07/17 11:43 02/07/17 11:43 02/07/17 11:43 02/07/17 11:43 02/07/17 11:43 Intake & Output 02/06/17 02/07/17 02/08/17 06:59 06:59 06:59 Intake Total 1062 1280 Balance 1062 1280 Weight 77.2 kg 77.6 kg Adult Front & Back Image: 1 - Dressings with some serous drainage but no erythema. [place] are intact. Neurovascular intact distally. Results Laboratory Results: 02/04/17 06:53 02/04/17 06:53 Impressions: Hip/Pelvis X-Ray 01/31/17 04:40 IMPRESSION: Comminuted intertrochanteric fracture -defects of the right proximal femur. Knee X-Ray 01/31/17 04:40 IMPRESSION: Prior ORIF of the right distal femur and patella. Moderate bony demineralization. Chest X-Ray 01/31/17 07:07 IMPRESSION: No significant interval change compared with prior exam, 2015. History of lymphoma. Fluoroscopy 02/01/17 00:00 IMPRESSION: IMAGE(S) OBTAINED DURING PROCEDURE. Hip X-Ray 02/01/17 00:00 IMPRESSION: IMAGE(S) OBTAINED DURING PROCEDURE. Assessment & Plan - Plan Summary Plan Summary: 51-year-old female who is status post intramedullary nailing of right intertrochanteric hip fracture. Patient to continue working with physical therapy and pain control. Continue DVT prophylaxis. Awaiting placement to residential facility.
--- NOTE | 2017-02-07 17:03 | PDOC PROGRESS REPORT ---
Subjective Progress Note for:: 02/07/17 Subjective:: Patient sitting in a chair stating no issues overnight. Physical Exam Vital Signs: Temp Pulse Resp BP Pulse Ox 37.1 C 120 H 20 100/62 96 02/07/17 15:37 02/07/17 15:37 02/07/17 15:37 02/07/17 15:37 02/07/17 15:37 Intake & Output 02/06/17 02/07/17 02/08/17 06:59 06:59 06:59 Intake Total 1062 1280 Balance 1062 1280 Weight 77.2 kg 77.6 kg Adult Front & Back Image: 1 - Dressing change today and incisions are dry clean and intact. Neurovascular intact distally. Results Laboratory Results: 02/04/17 06:53 02/04/17 06:53 Impressions: Hip/Pelvis X-Ray 01/31/17 04:40 IMPRESSION: Comminuted intertrochanteric fracture -defects of the right proximal femur. Knee X-Ray 01/31/17 04:40 IMPRESSION: Prior ORIF of the right distal femur and patella. Moderate bony demineralization. Chest X-Ray 01/31/17 07:07 IMPRESSION: No significant interval change compared with prior exam, 2015. History of lymphoma. Fluoroscopy 02/01/17 00:00 IMPRESSION: IMAGE(S) OBTAINED DURING PROCEDURE. Hip X-Ray 02/01/17 00:00 IMPRESSION: IMAGE(S) OBTAINED DURING PROCEDURE. Assessment & Plan - Plan Summary Plan Summary: Patient is status post nailing of right intertrochanteric hip fracture. Continue DVT prophylaxis Continue pain control Continue physical therapy Likely discharge early this week to rehab facility.
[2017-02-07] MEDS: RIVAROXABAN 10 MG TABLET PO SCH (21:12)
[2017-02-08] MEDS: OXYCODONE HCL IR 5 MG TABLET PO PRN ×3 (00:01→08:12)
--- NOTE | 2017-02-08 06:39 | PDOC DISCHARGE SUMMARY ---
General - Admit/Disc Date/PCP Admission Date/Primary Care Provider: 01/31/17 09:29 ABNER WILKINS MD Discharge Date: 02/08/17 - Discharge Diagnosis (1) Closed right hip fracture Is this a current diagnosis for this admission?: Yes (2) Acute blood loss as cause of postoperative anemia Is this a current diagnosis for this admission?: Yes - Additional Information Resuscitation Status: Full Code Discharge Diet: As Tolerated, Regular Discharge Activity: Balance Activity w/Rest, No Driving, No tub bath Home Medications: Aspirin [Radha Chewable Aspirin] 81 mg PO DAILY 01/31/17 Ca/D3/Mag/Zinc/Pk/Bharath/Mgbor [Caltrate 600+D3+Min Chew Tab] 1 each PO DAILY Cholecalciferol (Vitamin D3) [Vitamin D3 1000 Unit Tablet] 1,000 unit PO BID 09/18 Furosemide [Lasix] 40 mg PO DAILY 01/31/17 Magnesium 500 mg PO DAILY 01/31/17 Omeprazole 40 mg PO DAILY 01/31/17 Pnv with Ca,No.74/Iron/FA [Vol-Plus Tablet] 1 tab PO DAILY 01/31/17 Potassium Chloride [Klor-Con 10 Meq Tablet.sa] 10 meq PO DAILY 01/31/17 Oxycodone HCl [Oxy-Ir 5 mg Tablet] 5 mg PO Q4HP PRN #0 tablet 02/08/17 Rivaroxaban [Xarelto 10 mg Tablet] 10 mg PO QHS #0 tablet 02/08/17 History of Present Illness Patient complains of: Presents to the emergency room status post a fall with an inability to bear weight on the right lower extremity History of Present Illness: MAAME SAENZ is a 51 year old female Hospital Course Hospital Course: Admitted through the emergency room and subsequently taken to the operating room where she undergoes an open reduction internal fixation of her right intratrochanteric femur fracture. The procedure somewhat complicated because distal fracture fixation hardware for supracondylar femur fracture in the past. She is returned to the floor in satisfactory condition. She makes little progress with physical therapy but does improve on a daily basis. She is anemic and received 2 unit packed red blood cells. Physical Exam Vital Signs: Temp Pulse Resp BP Pulse Ox 37.6 C 112 H 16 113/67 91 L 02/08/17 00:04 02/08/17 00:04 02/08/17 00:04 02/08/17 00:04 02/08/17 00:04 Intake & Output 02/06/17 02/07/17 02/08/17 06:59 06:59 06:59 Intake Total 1062 1280 2670 Balance 1062 1280 2670 Weight 77.2 kg 77.6 kg 77.6 kg General appearance: PRESENT: no acute distress Head exam: PRESENT: normocephalic Respiratory exam: PRESENT: unlabored Cardiovascular exam: PRESENT: RRR Pulses: PRESENT: +1 pedal pulses bilateral Vascular exam: PRESENT: normal capillary refill GI/Abdominal exam: PRESENT: soft Rectal exam: PRESENT: deferred Extremities exam: PRESENT: other - Right lower extremity dressing with minor old drainage Neurological exam: PRESENT: alert, awake, oriented to person, oriented to place , oriented to time, oriented to situation, CN II-XII grossly intact. ABSENT: motor sensory deficit Psychiatric exam: PRESENT: appropriate affect, normal mood. ABSENT: homicidal ideation, suicidal ideation Skin exam: PRESENT: dry, intact, warm. ABSENT: cyanosis, rash Results Laboratory Results: 02/04/17 06:53 02/04/17 06:53 Impressions: Hip/Pelvis X-Ray 01/31/17 04:40 IMPRESSION: Comminuted intertrochanteric fracture -defects of the right proximal femur. Knee X-Ray 01/31/17 04:40 IMPRESSION: Prior ORIF of the right distal femur and patella. Moderate bony demineralization. Chest X-Ray 01/31/17 07:07 IMPRESSION: No significant interval change compared with prior exam, 2015. History of lymphoma. Fluoroscopy 02/01/17 00:00 IMPRESSION: IMAGE(S) OBTAINED DURING PROCEDURE. Hip X-Ray 02/01/17 00:00 IMPRESSION: IMAGE(S) OBTAINED DURING PROCEDURE. Status: Imported from PACS Plan Discharge Plan: Be discharged home with home health nursing, home health physical therapy, wheeled walker, bedside commode. Follow-up will be with Dr. Bell and [facility] for surgery in 2 weeks for staple removal.
[2017-02-08 10:25] VITALS: BP 130/70
== END 2017-02-08 11:37 | disposition home health service (06) | DRG 481 ==
LOC: ER 03:54 → UNDOADMIN 07:49 → EH 07:49 → 4N 09:58
PROVIDERS: ADMIT Orthopaedic Surgery; ATTEND Orthopaedic Surgery
PROC: 0QH636Z Insertion of Intramedullary Internal Fixation Device into Right Upper Femur, Percutaneous Approach (ICD-10-PCS; principal; 2017-02-01 12:15)
PROC: 30233N1 Transfusion of Nonautologous Red Blood Cells into Peripheral Vein, Percutaneous Approach (ICD-10-PCS; 2017-02-03)
PROC: 30233N1 Transfusion of Nonautologous Red Blood Cells into Peripheral Vein, Percutaneous Approach (ICD-10-PCS; 2017-02-04)
DX: S72.141A Displaced intertrochanteric fracture of right femur, initial encounter for closed fracture (principal); D62 Acute posthemorrhagic anemia; W01.0XXA Fall on same level from slipping, tripping and stumbling without subsequent striking against object, initial encounter; Y92.017 Garden or yard in single-family (private) house as the place of occurrence of the external cause; J44.9 Chronic obstructive pulmonary disease, unspecified; F17.210 Nicotine dependence, cigarettes, uncomplicated; K21.9 Gastro-esophageal reflux disease without esophagitis; F10.920 Alcohol use, unspecified with intoxication, uncomplicated; Y90.7 Blood alcohol level of 200-239 mg/100 ml; Z79.82 Long term (current) use of aspirin; Z79.899 Other long term (current) drug therapy; Z85.72 Personal history of non-Hodgkin lymphomas; Z90.710 Acquired absence of both cervix and uterus; Z96.642 Presence of left artificial hip joint; Z60.2 Problems related to living alone; Z96.651 Presence of right artificial knee joint
CPT/HCPCS: 01230; 36415; 36430; 71010; 80048; 80053; 80307; 81001; 85025; 85610; 85730; 86850; 86900; 86901; 86920; 87086; 87088; 87186; 93005; 93010; 96374; 96375; 99285; C1713; J0690; J1100; J1170; J1741; J2250; J2270; J2405; J2704; J3010; J3490; J7030; J7120; P9016

== ENCOUNTER 2017-04-25 18:33 | Emergency (ER) | payer MEDICAID ==
[2017-04-25] MEDS ORDERED: CIPROFLOXACIN HCL 0.3% OPH SOLN 2.5 ML OU ONE (19:57)
--- NOTE | 2017-04-25 20:01 | ER Document Report ---
ED Eye Complaint - General Chief Complaint: Eye Pain Stated Complaint: EYE IRRITATION,DRAINAGE Time Seen by Provider: 04/25/17 19:39 Mode of Arrival: Ambulatory Information source: Patient Notes: Patient is a 51-year-old female who presents to the ER today for 3 days of bilateral eye drainage, green/yellow in color, left worse than right. Patient admits to them being matted shut when she wakes up in the morning. She admits to runny nose and a mild cough 2 days. She denies any fevers or chills that she knows of. She does not wear contacts.she states that her eyes are irritated but not painful. She denies blurred vision or headache. TRAVEL OUTSIDE OF THE [place] IN LAST 30 DAYS: No - Related Data Allergies/Adverse Reactions: No Known Allergies Allergy (Verified 04/25/17 18:37) Past Medical History - General Information source: Patient - Social History Smoking Status: Current Some Day Smoker Chew tobacco use (# tins/day): No Frequency of alcohol use: None Drug Abuse: None Family History: Reviewed & Not Pertinent Pulmonary Medical History: Reports: Hx COPD Denies: Hx Tuberculosis Renal/ Medical History: Denies: Hx Peritoneal Dialysis Malignancy Medical History: Reports: Hx Lymphoma Psychiatric Medical History: Denies: Hx Depression Past Surgical History: Reports: Hx Section, Hx Hysterectomy, Hx Orthopedic Surgery - Left hip replacement, right knee, Hx Tonsillectomy, Hx Tubal Ligation. Denies: Hx Pacemaker - Immunizations Hx Diphtheria, Pertussis, Tetanus Vaccination: Yes Review of Systems - Review of Systems Constitutional: No symptoms reported EENT: See HPI Cardiovascular: No symptoms reported Respiratory: No symptoms reported Gastrointestinal: No symptoms reported Genitourinary: No symptoms reported Female Genitourinary: No symptoms reported Musculoskeletal: No symptoms reported Skin: No symptoms reported Hematologic/Lymphatic: No symptoms reported Neurological/Psychological: No symptoms reported Physical Exam - Vital signs Vitals: Temp Pulse Resp BP Pulse Ox 98.5 F 110 H 18 95/75 L 96 04/25/17 18:38 04/25/17 18:38 04/25/17 18:38 04/25/17 18:38 04/25/17 18:38 - Notes Notes: PHYSICAL EXAMINATION: GENERAL: Mildly ill-appearing, but in no acute distress. HEAD: Atraumatic, normocephalic. EYES: sclera and conjunctiva erythematous bilaterally, Pupils equal round and reactive to light, extraocular movements intact ENT: ear canals without erythema or foreign body, TMs pearly harris with good bony landmarks, nares patent, oropharynx clear without exudates. Moist mucous membranes. NECK: Normal range of motion, supple without lymphadenopathy LUNGS: CTAB and equal. No wheezes rales or rhonchi. HEART: Regular rate and rhythm without murmurs EXTREMITIES: Normal range of motion, no pitting edema. No cyanosis. NEUROLOGICAL: Cranial nerves grossly intact. Normal sensory/motor exams. PSYCH: Normal mood, normal affect. SKIN: Warm, Dry, normal turgor, no rashes or lesions noted - HEENT Visual acuity- Right eye: 20/70 Visual acuity- Left eye: 20/100 Visual acuity- Both eyes: 20/70 Corrective lenses worn: No Course - Re-evaluation Re-evalutation: 04/25/17 20:01 Patient was sent home with ciprofloxacin eyedrops from the emergency department. I did advise her to follow-up with ophthalmology which I gave her the information for, first thing tomorrow. - Vital Signs Vital signs: Temp Pulse Resp BP Pulse Ox 98.5 F 110 H 18 95/75 L 96 04/25/17 18:38 04/25/17 18:38 04/25/17 18:38 04/25/17 18:38 04/25/17 18:38 Discharge - Discharge Clinical Impression: Conjunctivitis, acute, bilateral Qualifiers: Acute conjunctivitis type: bacterial Qualified Code(s): H10.33 - Unspecified acute conjunctivitis, bilateral Condition: Stable Disposition: HOME, SELF-CARE Additional Instructions: Return immediately for any new or worsening symptoms. Follow up with ophthalmology, call tomorrow to make followup appointment. Prescriptions: Fluticasone Propionate [Flonase Nasal [place] 50 Mcg/[place] 16 gm] 2 sprays NASL Q12 #1 inhaler Referrals: [facility] [Provider Group] - Follow up as needed
[2017-04-25 20:37] VITALS: BP 100/76
== END 2017-04-25 20:38 | disposition home or self-care (01) ==
LOC: ER 18:33
DX: H10.33 Unspecified acute conjunctivitis, bilateral (principal); F17.200 Nicotine dependence, unspecified, uncomplicated; Z96.642 Presence of left artificial hip joint; Z96.651 Presence of right artificial knee joint; Z98.51 Tubal ligation status
CPT/HCPCS: 99282; J3490

== ENCOUNTER → 2017-05-26 | Outpatient (CLI) | payer MEDICAID ==
--- NOTE | 2017-05-26 16:35 | RADIOLOGY REPORT (SQ) ---
EXAM DESCRIPTION: CTA ABD AORTA AND EXTREMITY COMPLETED DATE/TIME: 05/26/2017 1:41 pm REASON FOR STUDY: ATHEROCLEROSIS OF [place] ARTERIES OF EXTREMITIES I70.223 ATHSCL [place] ARTERIES O F EXTRM W REST PAIN, BILATER COMPARISON: CT of the left lower leg 09/26/2014 CT abdomen pelvis 05/21/2016 TECHNIQUE: CT scan of the body and lower extremities performed with intravenous contrast using helic al scanning technique with dynamic intravenous contrast injection. Images reviewed with lung, soft ti ssue, and bone windows. Reconstructed coronal and sagittal MPR images reviewed. All images stored on PACS. Advanced 3D imaging as volume-rendering, MIPs, SSD performed? yes All CT scanners at this facility use dose modulation, iterative reconstruction, and/or weight based d osing when appropriate to reduce radiation dose to as low as reasonably achievable (ALARA). [facility]: Dose Right [facility]: CareDose [facility]: Dose Right [facility]: Teradose 4D [facility]: eMagin CONTRAST TYPE AND DOSE: contrast/concentration: Isovue 370.00 mg/ml; Total Contrast Delivered: 100.0 ml; Total Saline Delivered: 100.0 ml RENAL FUNCTION: Creatinine 0.85 LIMITATIONS: The uppermost abdominal aorta is cropped from the field of view, celiac origin not seen FINDINGS: POST-CONTRAST IMAGING: AORTA AND VESSELS: No aneurysm. No dissection. Renal arteries, SMA, JERARDO, iliac arteries without steno sis. LIVER: Visualized liver unremarkable. SPLEEN: Not in the field of view PANCREAS: No masses. No significant calcifications. No adjacent inflammation or peripancreatic fluid collections. Pancreatic duct not dilated. GALLBLADDER: No identified stones by CT criteria. No inflammatory changes to suggest cholecystitis. ADRENAL GLANDS: No significant masses or asymmetry. RIGHT KIDNEY AND URETER: No mass, calculi or urinary tract obstruction. LEFT KIDNEY AND URETER: No mass, calculi or urinary tract obstruction. RETROPERITONEUM: No retroperitoneal adenopathy, hemorrhage or masses. BOWEL AND PERITONEAL CAVITY: No masses or inflammatory changes. No free fluid or peritoneal masses. APPENDIX: Not identified. No right lower quadrant inflammatory change ABDOMINAL WALL: No masses. No hernias. BONY STRUCTURES: Old right superior and inferior pubic ramus fracture, healed PELVIS: No other significant finding. LOWER EXTREMITIES: FEMORAL ARTERIES: No occlusions or significant stenoses. POPLITEAL ARTERIES: No aneurysm. No occlusions or significant stenoses. TIBIOPERONEAL TRUNK AND RUNOFF VESSELS: No occlusions or significant stenoses. Three-vessel runoff t hrough the lower legs, bilateral patent dorsalis pedis and posterior tibial arteries OTHER: Old healed right femoral neck fracture, distal femoral fracture, patella fracture with hardwar e. Ossification intra osseous membrane at the distal tibia and fibula. Old left femoral neck fractu re and proximal tibial fracture with hardware. 3-D IMAGING: Confirms the above findings. IMPRESSION: NO ABDOMINAL AORTIC ANEURYSM, DISSECTION OR SIGNIFICANT STENOSIS IN THE AORTA, ILIAC ART ERIES, OR LOWER EXTREMITY VESSELS. NO SIGNIFICANT FINDINGS IN THE ABDOMEN, PELVIS, OR LOWER EXTREMITI ES. TECHNICAL DOCUMENTATION: JOB ID: [id number] Quality ID # [id number]: Final reports with documentation of one or more dose reduction techniques (e.g., Au tomated exposure control, adjustment of the mA and/or kV according to patient size, use of iterative reconstruction technique) 2010 [employer]- All Rights Reserved
== END ==
LOC: RAD 12:40
PROVIDERS: ATTEND Surgery Vascular Surgery
DX: I70.223 Atherosclerosis of native arteries of extremities with rest pain, bilateral legs (principal)
CPT/HCPCS: 75635

== ENCOUNTER 2017-09-09 23:46 | Inpatient (IN) | payer MEDICAID ==
[2017-09-10] MEDS ORDERED: ACETAMINOPHEN 325 MG TABLET PO ONE ×2 (00:21→01:56)
[2017-09-10] MEDS ORDERED: NORMAL SALINE 1000 ML 1,000 ML IV ONE (00:21)
[2017-09-10] MEDS ORDERED: IPRATROPIUM/ALBUTEROL 0.5-2.5 MG/3 ML AMPUL NEB ONE (00:23)
[2017-09-10] MEDS ORDERED: METHYLPREDNISOLONE INJ 125 MG/2 ML SDV IV ONE (00:23)
--- NOTE | 2017-09-10 00:23 | ER Document Report ---
ED Medical Screen (RME) - General Chief Complaint: Breathing Difficulty Stated Complaint: DIFFICULTY BREATHING Time Seen by Provider: 09/10/17 00:21 Mode of Arrival: Wheelchair Information source: Patient Notes: 51-year-old female presents to ED for having trouble breathing since yesterday. She states her fever has been since yesterday also her temp in the pit is 101.9 her pulse is 140 apical pulse. Pulse ox is 87. I have greeted and performed a rapid initial assessment of this patient. A comprehensive ED assessment and evaluation of the patient, analysis of test results and completion of medical decision making process will be conducted by an additional ED providers. TRAVEL OUTSIDE OF THE [place] IN LAST 30 DAYS: No - Related Data Allergies/Adverse Reactions: No Known Allergies Allergy (Verified 04/25/17 18:37) Past Medical History Pulmonary Medical History: Reports: Hx COPD Denies: Hx Tuberculosis Renal/ Medical History: Denies: Hx Peritoneal Dialysis Malignancy Medical History: Reports: Hx Lymphoma Psychiatric Medical History: Denies: Hx Depression Past Surgical History: Reports: Hx Section, Hx Hysterectomy, Hx Orthopedic Surgery - Left hip replacement, right knee, Hx Tonsillectomy, Hx Tubal Ligation. Denies: Hx Pacemaker - Immunizations Hx Diphtheria, Pertussis, Tetanus Vaccination: Yes
[2017-09-10] MEDS ORDERED: ALBUTEROL SULFATE 0.083% NEB 2.5 MG/3 ML AMPUL NEB SCH (00:30)
--- NOTE | 2017-09-10 01:11 | ER Document Report ---
ED General - General Chief Complaint: Breathing Difficulty Stated Complaint: DIFFICULTY BREATHING Time Seen by Provider: 09/10/17 00:21 Mode of Arrival: Wheelchair Notes: Patient is a 51-year-old female with a history of lymphoma presents with complaint of fever and body aches. Patient says she has had some cough and congestion. She comes in hypoxic with O2 saturation of 88% on room air. Patient says that her lymphoma is in remission. She is followed by Dr. Masters. Her primary care doctor is Dr. Higuera. She says she has been sick since yesterday. No vomiting. No diarrhea. Some body aches. Does have a headache. She is a smoker. No dysuria. No medical allergies. She has no other complaints at this time. TRAVEL OUTSIDE OF THE [place] IN LAST 30 DAYS: No - Related Data Allergies/Adverse Reactions: No Known Allergies Allergy (Verified 04/25/17 18:37) Past Medical History - General Information source: Patient - Social History Smoking Status: Current Every Day Smoker Frequency of alcohol use: None Drug Abuse: None Family History: Reviewed & Not Pertinent Pulmonary Medical History: Reports: Hx COPD Denies: Hx Tuberculosis Renal/ Medical History: Denies: Hx Peritoneal Dialysis Malignancy Medical History: Reports: Hx Lymphoma Psychiatric Medical History: Denies: Hx Depression Past Surgical History: Reports: Hx Section, Hx Hysterectomy, Hx Orthopedic Surgery - Left hip replacement, right knee, Hx Tonsillectomy, Hx Tubal Ligation. Denies: Hx Pacemaker - Immunizations Hx Diphtheria, Pertussis, Tetanus Vaccination: Yes Review of Systems - Review of Systems Notes: My Normal Review Basic REVIEW OF SYSTEMS: CONSTITUTIONAL : Fever EENT: Congestion CARDIOVASCULAR: Headaches including chest pain. RESPIRATORY: Cough GASTROINTESTINAL: Denies abdominal pain. Denies nausea, vomiting, or diarrhea. Denies constipation. Last BM: GENITOURINARY: Denies difficulty urinating, painful urination, burning, frequency, or blood in urine. MUSCULOSKELETAL: Body aches SKIN: Denies rash or skin lesions. NEUROLOGICAL: Denies altered mental status or loss of consciousness. Has a headache. Denies weakness or paralysis or loss of use of either side. Denies problems with gait or speech. Denies sensory or motor loss. ALL OTHER SYSTEMS REVIEWED AND NEGATIVE. Physical Exam - Vital signs Vitals: Pulse Ox 96 09/10/17 00:25 - Notes Notes: General Appearance: Well nourished, alert, cooperative, no acute distress, no obvious discomfort. Vitals: reviewed, See vital signs table. Head: no swelling or tenderness to the head Eyes: PERRL, EOMI, Conjuctiva clear Mouth: No decreasd moisture Throat: No tonsillar inflammation, No airway obstruction, No lymphadenopathy Neck: Supple, no neck tenderness Lungs: No wheezing, No rales, No rhonci, No accessory muscle use, good air exchange bilaterally. Heart: Rapid rate, Regular rythm, No murmur, no rub Abdomen: Normal BS, soft, No rigidity, No abdominal tenderness, No guarding, no rebound, no abdominal masses, no organomegaly Extremities: strength 5/5 in all extremities, good pulses in all extremities, no swelling or tenderness in the extremities, no edema. Skin: warm, dry, appropriate color, no rash Neuro: speech clear, oriented x 3, normal affect, responds appropriately to questions. Cranial nerves II through XII are intact. Distal sensation intact. Patient moves all extremities without difficulty. Course - Re-evaluation Re-evalutation: 09/10/17 03:12 Patient clinically looks much improved. She still has some coarse breath sounds. I will give another breathing treatment. She is resting her heart rate is in the 120s. When she wakes up he goes into the 140s. Her pulse ox is 97% on 2 L. Her chest x-ray shows what appears to be developing pneumonia on the right side. Here urinalysis shows appears to be bad urinary tract infection. Her blood pressures remained normal. Her last hospital admission was in January of last year. I will therefore start her as to be acquired pneumonia she has had no recent hospital admissions. Will start Rocephin and azithromycin. I will will call Dr. Higuera and discuss admitting the patient with him. 09/10/17 03:[address] Higuera who agrees to admit the patient. Dictation of this chart was performed using voice recognition software; therefore, there may be some unintended grammatical errors. - Vital Signs Vital signs: Temp Pulse Resp BP Pulse Ox 99.5 F 21 H 148/89 H 96 09/10/17 01:45 09/10/17 02:06 09/10/17 02:18 09/10/17 02:18 - Laboratory Result Diagrams: 09/10/17 00:55 09/10/17 00:55 Laboratory results interpreted by me: 09/10/17 09/10/17 09/10/17 00:55 00:55 00:55 WBC 14.6 H RBC 3.31 L MCV 109 H MCH 37.5 H RDW 14.7 H Plt Count 132 L Seg Neutrophils % 89.9 H Lymphocytes % 5.8 L Absolute Neutrophils 13.1 H Sodium 135.7 L Glucose 111 H Lactic Acid 3.3 H Direct Bilirubin 0.8 H AST 149 H Urine Protein Urine Blood Urine Urobilinogen Ur Leukocyte Esterase 09/10/17 02:15 WBC RBC MCV MCH RDW Plt Count Seg Neutrophils % Lymphocytes % Absolute Neutrophils Sodium Glucose Lactic Acid Direct Bilirubin AST Urine Protein 100 H Urine Blood SMALL H Urine Urobilinogen 4.0 H Ur Leukocyte Esterase LARGE H Discharge - Discharge Clinical Impression: UTI (urinary tract infection) Qualifiers: Urinary tract infection type: site unspecified Hematuria presence: without hematuria Qualified Code(s): N39.0 - Urinary tract infection, site not specified Pneumonia Qualifiers: Pneumonia type: due to unspecified organism Laterality: right Lung location: lower lobe of lung Qualified Code(s): J18.1 - Lobar pneumonia, unspecified organism Sepsis Qualifiers: Sepsis type: sepsis due to unspecified organism Qualified Code(s): A41.9 - Sepsis, unspecified organism Condition: Stable Disposition: ADMITTED INPATIENT Admitting Provider: Kalen Unit Admitted: [facility]
[2017-09-10 01:24] LABS: VENOUS BLOOD BASE EXCESS -0.9 mmol/L; VENOUS BLOOD PCO2 40.7 mmHg (35-63); VENOUS BLOOD PH 7.39 (7.30-7.42)
[2017-09-10 01:27] LABS: ABSOLUTE BASOPHILS # (AUTO) 0.1 10^3/uL (0.0-0.2); ABSOLUTE LYMPHOCYTES (AUTO) 0.9 10^3/uL (0.5-4.7); ABSOLUTE MONOCYTES (AUTO) 0.5 10^3/uL (0.1-1.4); ABSOLUTE NEUT (AUTO) 13.1 10^3/uL (1.7-8.2); BASOPHILS % (AUTO) 0.5 % (0-2); EOSINOPHILS % (AUTO) 0.1 % (0-6); HEMATOCRIT 36.2 % (36.0-47.0); HEMOGLOBIN 12.4 g/dL (12.0-15.5); LYMPHOCYTES % (AUTO) 5.8 % (13-45); MEAN CORPUSCULAR HEMOGLOBIN 37.5 pg (27.0-33.4); MEAN CORPUSCULAR HGB CONC 34.3 g/dL (32.0-36.0); MEAN CORPUSCULAR VOLUME 109 fl (80-97); MONOCYTES % (AUTO) 3.7 % (3-13); PLATELET COUNT 132 10^3/uL (150-450); RED BLOOD COUNT 3.31 10^6/uL (3.72-5.28); RED CELL DISTRIBUTION WIDTH 14.7 % (11.5-14.0); SEGMENTED NEUTROPHILS % (AUTO) 89.9 % (42-78); TOTAL CELLS COUNTED % (AUTO) 100 %; WHITE BLOOD COUNT 14.6 10^3/uL (4.0-10.5)
[2017-09-10 01:38] LABS: ALANINE AMINOTRANSFERASE 45 U/L (9-52); ALBUMIN 4.1 g/dL (3.5-5.0); ALKALINE PHOSPHATASE 113 U/L (38-126); ANION GAP 16 (5-19); ASPARTATE AMINO TRANSFERASE 149 U/L (14-36); BILIRUBIN,DIRECT 0.8 mg/dL (0.0-0.4); BILIRUBIN,TOTAL 1.1 mg/dL (0.2-1.3); BLOOD UREA NITROGEN 9 mg/dL (7-20); CALCIUM 9.7 mg/dL (8.4-10.2); CARBON DIOXIDE 22 mmol/L (22-30); CHLORIDE 98 mmol/L (98-107); GLUCOSE 111 mg/dL (75-110); POTASSIUM 3.6 mmol/L (3.6-5.0); SODIUM 135.7 mmol/L (137-145); TOTAL PROTEIN 7.4 g/dL (6.3-8.2)
[2017-09-10 01:47] LABS: INTERNATIONAL RATION (INR) 1.03; PROTHROMBIN TIME 14.2 SEC (11.4-15.4)
[2017-09-10 03:01] LABS: A TYPE INFLUENZA AG NEGATIVE (NEGATIVE); B INFLUENZA AG NEGATIVE (NEGATIVE)
[2017-09-10 03:02] LABS: APPEARANCE,URINE CLOUDY; BILIRUBIN,URINE NEGATIVE (NEGATIVE); COLOR,URINE AMBER; GLUCOSE, URINE NEGATIVE (NEGATIVE); KETONES,URINE NEGATIVE (NEGATIVE); LEUKOCYTE ESTERASE,URINE LARGE (NEGATIVE); NITRITE,URINE NEGATIVE (NEGATIVE); PROTEIN,URINE 100 mg/dL (NEGATIVE); URINE SPECIFIC GRAVITY 1.016
[2017-09-10] MEDS ORDERED: CEFTRIAXONE 1 GM/D5W RTU 1 GM/50 ML RTUPB IV ONE (03:07)
[2017-09-10] MEDS ORDERED: AZITHROMYCIN INJ 500 MG VIAL IV ONE (03:11)
[2017-09-10] MEDS ORDERED: ALBUTEROL SULFATE 0.083% NEB 2.5 MG/3 ML AMPUL NEB ONE (03:12)
[2017-09-10] MEDS ORDERED: CEFTRIAXONE INJ 1000 MG VIAL ONE (03:36)
--- NOTE | 2017-09-10 08:28 | RADIOLOGY REPORT (SQ) ---
EXAM DESCRIPTION: CHEST PA/LAT COMPLETED DATE/TIME: 09/10/2017 2:32 am REASON FOR STUDY: History of COPD temp 101 pulse 140s septic workup COMPARISON: CT angio chest 09/28/2014 Chest films 09/29/2014, 04/16/2016, 04/19/2016 EXAM PARAMETERS: NUMBER OF VIEWS: two views TECHNIQUE: Digital Frontal and Lateral radiographic views of the chest acquired. RADIATION DOSE: NA LIMITATIONS: none FINDINGS: LUNGS AND PLEURA: Chronic volume loss and scarring right hemithorax, with volume loss in t he right upper lobe and elevation of the right hilum. These findings are stable compared to 2014. Left lung grossly clear. No right or left pleural effusion or pneumothorax. MEDIASTINUM AND HILAR STRUCTURES: No masses. HEART AND VASCULAR STRUCTURES: Heart normal size. No evidence for failure. BONES: No acute findings. HARDWARE: None in the chest. OTHER: No other significant finding. IMPRESSION: No acute findings. Chronic scarring in the right hemithorax TECHNICAL DOCUMENTATION: JOB ID: [id number] [employer]- All Rights Reserved
[2017-09-10] MEDS ORDERED: CEFTRIAXONE 1 GM/D5W RTU 50 ML IV SCH (10:00)
--- NOTE | 2017-09-10 10:04 | EKG REPORT ---
SEVERITY:- BORDERLINE ECG - SINUS TACHYCARDIA BORDERLINE INFERIOR Q WAVES BORDERLINE T ABNORMALITIES, ANT-LAT LEADS : Confirmed by: Martha Fletcher 10-Sep-2017 10:04:02
[2017-09-10 11:01] LABS: CREATINE KINASE MB 1.53 ng/mL (<4.55)
[2017-09-10 11:02] LABS: TROPONIN I < 0.012 ng/mL
[2017-09-10] MEDS ORDERED: INFLUENZA ADLT QUAD (36MOS+) 2017-18 VAC 0.5 ML SYR IM PRN (11:05)
[2017-09-10] MEDS: ENOXAPARIN SODIUM INJ 40 MG/0.4 ML DISP.SYRIN SUBCUT SCH (11:41)
[2017-09-10] MEDS: LEVOFLOXACIN 750 MG/D5W RTU 750 MG/150 ML RTUPB IV SCH (11:43)
--- NOTE | 2017-09-10 12:57 | RADIOLOGY REPORT (SQ) ---
EXAM DESCRIPTION: CT CHEST WITHOUT COMPLETED DATE/TIME: 09/10/2017 12:40 pm REASON FOR STUDY: copd/pneumonia COMPARISON: 7 CT chest exams since 09/24/2007, most recently 05/21/2016 Two-view chest 09/10/2017 TECHNIQUE: CT scan performed of the chest without intravenous contrast. Images reviewed with lung, soft tissue and bone windows. Reconstructed coronal and sagittal MPR images reviewed. All images st ored on PACS. All CT scanners at this facility use dose modulation, iterative reconstruction, and/or weight based d osing when appropriate to reduce radiation dose to as low as reasonably achievable (ALARA). [facility]: Dose Right [facility]: CareDose [facility]: Dose Right [facility]: Teradose 4D [facility]: [employer] RADIATION DOSE: CT Rad equipment meets quality standard of care and radiation dose reduction techniq ues were employed. CTDIvol: 14.4 mGy. DLP: 561 mGy-cm. mGy. LIMITATIONS: No technical limitations. FINDINGS: LUNGS AND PLEURA: In the left posterior lung base, patchy ground-glass opacity is present on axial images 39-48, likely representing early or developing pneumonia. Remainder of the lungs exhibit extensive changes of postinflammatory process, with volume loss with b ronchiectasis and consolidation in the right upper lobe. No pleural effusions. No pneumothorax. No worrisome pulmonary nodules. HILAR AND MEDIASTINAL STRUCTURES: No identified masses or abnormal nodes. No obvious aneurysm. HEART AND VASCULAR STRUCTURES: No aneurysm. No pericardial effusion. 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 No adenopathy. BONES: Old healed sternal fractures, multiple upper endplate thoracic spine central depressions witho ut overall loss of height, similar compared to previous studies. Old right posterior rib defects fro m thoracotomy. HARDWARE: None in the chest. OTHER: No other significant findings. IMPRESSION: Minimal patchy airspace disease left posterior lung base, question early or developing p neumonia TECHNICAL DOCUMENTATION: JOB ID: [id number] Quality ID # [id number]: Final reports with documentation of one or more dose reduction techniques (e.g., Au tomated exposure control, adjustment of the mA and/or kV according to patient size, use of iterative reconstruction technique) 2010 [employer]- All Rights Reserved
[2017-09-10] MEDS: ACETAMINOPHEN 325 MG TABLET PO PRN ×2 (15:32→22:02)
[2017-09-10] MEDS ORDERED: CEFTRIAXONE SODIUM 1,000 MG in NORMAL SALINE 50 ML IV SCH (22:00)
[2017-09-11] MEDS: LEVOFLOXACIN 750 MG/D5W RTU 750 MG/150 ML RTUPB IV SCH (10:17)
[2017-09-11] MEDS: ENOXAPARIN SODIUM INJ 40 MG/0.4 ML DISP.SYRIN SUBCUT SCH (10:17)
[2017-09-11] MEDS: ALBUTEROL SULFATE 0.083% NEB 2.5 MG/3 ML AMPUL NEB PRN ×4 (10:32→23:18)
[2017-09-11] MEDS: ACETAMINOPHEN 325 MG TABLET PO PRN (11:47)
--- NOTE | 2017-09-11 19:48 | PDOC H&P ---
History of Present Illness Admission Date/PCP: 09/10/17 03:25 ABNER WILKINS MD History of Present Illness: MAAME SAENZ is a 51 year old female history of non-Hodgkin's lymphoma status post chemotherapy she presented to the emergency room for evaluation of shortness of breath, fever, generalized body ache. She was found to have low oxygen saturation, SaO2 88% on room air, in the emergency room she was evaluated she was treated bronchodilators and IV antibiotic. Patient continued to smoke cigarettes, CT chest without contrast was ordered but she , groundglass opacity also found was extensive changes of post inflammatory process with volume loss, bronchiectasis on consolidation in the right upper lobe. Past Medical History Pulmonary Medical History: Reports: Chronic Obstructive Pulmonary Disease (COPD) Malignancy Medical History: Reports: Lymphoma Hematology: Reports: Anemia Past Surgical History Past Surgical History: Reports: Section, Hysterectomy, Orthopedic Surgery - Left hip replacement, right knee, Tonsillectomy, Tubal Ligation Social History Smoking Status: Current Every Day Smoker Cigarettes Packs Per Day: 7 Frequency of Alcohol Use: Occasional Hx Recreational Drug Use: No Drugs: None Hx Prescription Drug Abuse: No Family History Family History: Reviewed & Not Pertinent Parental Family History Reviewed: Yes Children Family History Reviewed: Yes Sibling(s) Family History Reviewed.: Yes Medication/Allergy Home Medications: Megestrol Acetate [Megace Es] 5 ml PO DAILY 09/10/17 Tramadol HCl [Ultram 50 mg Tablet] 50 mg PO Q6HP PRN 09/10/17 Allergies/Adverse Reactions: No Known Allergies Allergy (Verified 04/25/17 18:37) Review of Systems Constitutional: ABSENT: chills, fever(s), headache(s), weight gain, weight loss Eyes: ABSENT: visual disturbances Ears: ABSENT: hearing changes Cardiovascular: ABSENT: chest pain, dyspnea on exertion, edema, orthropnea, palpitations Respiratory: PRESENT: cough, dyspnea, sputum Gastrointestinal: ABSENT: abdominal pain, constipation, diarrhea, hematemesis, hematochezia, nausea, vomiting Genitourinary: ABSENT: dysuria, hematuria Musculoskeletal: ABSENT: joint swelling Integumentary: ABSENT: rash, wounds Neurological: ABSENT: abnormal gait, abnormal speech, confusion, dizziness, focal weakness, syncope Psychiatric: ABSENT: anxiety, depression, homidical ideation, suicidal ideation Endocrine: ABSENT: cold intolerance, heat intolerance, menstrual abnormalities, polydipsia, polyuria Hematologic/Lymphatic: ABSENT: easy bleeding, easy bruising, lymphadenopathy Physical Exam Vital Signs: Temp Pulse Resp BP Pulse Ox 99.5 F 111 H 20 115/68 98 09/11/17 15:51 09/11/17 18:34 09/11/17 18:34 09/11/17 15:51 09/11/17 18:34 Pulse Oximeter Continuous Start: 09/10/17 08: 08 Freq: RTQ4 Status: Active Document 09/11/17 16:30 HCR (Rec: 09/11/17 17:16 HCR [email or web address]) Pulse Oximetry Assessment Oxygen Saturation (92-100) 95 Oxygen Flow Rate (L/min) 2 Oxygen Delivery Method Nasal Cannula Equipment Usage Equipment in Use Continuous SpO2 Machine # 2 Intake & Output 09/10/17 09/11/17 09/12/17 06:59 06:59 06:59 Intake Total 210 1180 Output Total 200 Balance 10 1180 Weight 70.3 kg General appearance: PRESENT: no acute distress, well-developed, well-nourished Head exam: PRESENT: atraumatic, normocephalic Eye exam: PRESENT: conjunctival injection, PERRLA Ear exam: PRESENT: normal external ear exam Mouth exam: PRESENT: moist, tongue midline Neck exam: PRESENT: full ROM Respiratory exam: PRESENT: wheezes Cardiovascular exam: PRESENT: RRR, +S1, +S2 Pulses: PRESENT: normal dorsalis pedis pul, +2 pedal pulses bilateral Vascular exam: PRESENT: normal capillary refill GI/Abdominal exam: PRESENT: normal bowel sounds, soft Rectal exam: PRESENT: deferred Neurological exam: PRESENT: alert, CN II-XII grossly intact Psychiatric exam: PRESENT: appropriate affect, normal mood Skin exam: PRESENT: dry, intact, warm Results Laboratory Results: 09/10/17 09/10/17 09:36 09:36 Creatine Kinase 97 CK-MB (CK-2) 1.53 Troponin I < 0.012 Impressions: Chest CT 09/10/17 00:00 IMPRESSION: Minimal patchy airspace disease left posterior lung base, question early or developing pneumonia Chest X-Ray 09/10/17 00:21 IMPRESSION: No acute findings. Chronic scarring in the right hemithorax Assessment & Plan - Diagnosis (1) Acute hypoxemic respiratory failure Is this a current diagnosis for this admission?: Yes Plan: Treated with oxygen via nasal cannula (2) Pneumonia Qualifiers: Pneumonia type: due to unspecified organism Laterality: right Lung location: upper lobe of lung Qualified Code(s): J18.1 - Lobar pneumonia, unspecified organism Is this a current diagnosis for this admission?: Yes Plan: She has chronic lung disease now presenting with community-acquired pneumonia associated with acute hypoxemia respiratory failure will be treated with IV antibiotic to cover community-acquired pathogens (3) Chronic obstructive pulmonary disease (COPD) Qualifiers: COPD type: unspecified COPD Qualified Code(s): J44.9 - Chronic obstructive pulmonary disease, unspecified Is this a current diagnosis for this admission?: Yes (4) Conjunctivitis Qualifiers: Conjunctivitis type: acute Acute conjunctivitis type: unspecified Laterality: bilateral Qualified Code(s): H10.33 - Unspecified acute conjunctivitis, bilateral
--- NOTE | 2017-09-11 19:50 | PDOC PROGRESS REPORT ---
Subjective Progress Note for:: 09/11/17 Subjective:: Patient was admitted yesterday, she was seen today by the bedside, she feels somewhat better Reason For Visit: PNEUMONIA Physical Exam Vital Signs: Temp Pulse Resp BP Pulse Ox 99.5 F 111 H 20 115/68 98 09/11/17 15:51 09/11/17 18:34 09/11/17 18:34 09/11/17 15:51 09/11/17 18:34 Pulse Oximeter Continuous Start: 09/10/17 08: 08 Freq: RTQ4 Status: Active Document 09/11/17 16:30 HCR (Rec: 09/11/17 17:16 HCR [email or web address]) Pulse Oximetry Assessment Oxygen Saturation (92-100) 95 Oxygen Flow Rate (L/min) 2 Oxygen Delivery Method Nasal Cannula Equipment Usage Equipment in Use Continuous SpO2 Machine # 2 Intake & Output 09/10/17 09/11/17 09/12/17 06:59 06:59 06:59 Intake Total 210 1180 Output Total 200 Balance 10 1180 Weight 70.3 kg Head exam: PRESENT: atraumatic, normocephalic Eye exam: PRESENT: conjunctival injection Neck exam: PRESENT: full ROM Respiratory exam: PRESENT: decreased breath sounds Cardiovascular exam: PRESENT: RRR, +S1, +S2 GI/Abdominal exam: PRESENT: normal bowel sounds, soft Rectal exam: PRESENT: deferred Neurological exam: PRESENT: alert Results Laboratory Results: 09/10/17 09/10/17 09:36 09:36 Creatine Kinase 97 CK-MB (CK-2) 1.53 Troponin I < 0.012 Impressions: Chest CT 09/10/17 00:00 IMPRESSION: Minimal patchy airspace disease left posterior lung base, question early or developing pneumonia Chest X-Ray 09/10/17 00:21 IMPRESSION: No acute findings. Chronic scarring in the right hemithorax Assessment & Plan - Diagnosis (1) Acute hypoxemic respiratory failure Is this a current diagnosis for this admission?: Yes (2) Pneumonia Qualifiers: Pneumonia type: due to unspecified organism Laterality: right Lung location: upper lobe of lung Qualified Code(s): J18.1 - Lobar pneumonia, unspecified organism Is this a current diagnosis for this admission?: Yes (3) Chronic obstructive pulmonary disease (COPD) Qualifiers: COPD type: unspecified COPD Qualified Code(s): J44.9 - Chronic obstructive pulmonary disease, unspecified Is this a current diagnosis for this admission?: Yes (4) Conjunctivitis Qualifiers: Conjunctivitis type: acute Acute conjunctivitis type: unspecified Laterality: bilateral Qualified Code(s): H10.33 - Unspecified acute conjunctivitis, bilateral Is this a current diagnosis for this admission?: Yes - Plan Summary Plan Summary: Continue treatment
[2017-09-11 20:43] LABS: HEMATOCRIT 34.2 % (36.0-47.0); HEMOGLOBIN 11.6 g/dL (12.0-15.5); MEAN CORPUSCULAR HEMOGLOBIN 36.8 pg (27.0-33.4); MEAN CORPUSCULAR VOLUME 108 fl (80-97); PLATELET COUNT 105 10^3/uL (150-450); RED BLOOD COUNT 3.16 10^6/uL (3.72-5.28); RED CELL DISTRIBUTION WIDTH 14.3 % (11.5-14.0); WHITE BLOOD COUNT 12.9 10^3/uL (4.0-10.5)
[2017-09-11 20:59] LABS: ALANINE AMINOTRANSFERASE 35 U/L (9-52); ALBUMIN 3.7 g/dL (3.5-5.0); ALKALINE PHOSPHATASE 108 U/L (38-126); ANION GAP 10 (5-19); ASPARTATE AMINO TRANSFERASE 85 U/L (14-36); BILIRUBIN,DIRECT 0.7 mg/dL (0.0-0.4); BILIRUBIN,TOTAL 0.9 mg/dL (0.2-1.3); BLOOD UREA NITROGEN 13 mg/dL (7-20); CALCIUM 9.3 mg/dL (8.4-10.2); CARBON DIOXIDE 25 mmol/L (22-30); CHLORIDE 99 mmol/L (98-107); GLUCOSE 101 mg/dL (75-110); POTASSIUM 3.8 mmol/L (3.6-5.0); SODIUM 133.7 mmol/L (137-145); TOTAL PROTEIN 6.7 g/dL (6.3-8.2)
[2017-09-11 21:02] LABS: ABSOLUTE LYMPHOCYTES# (MANUAL) 0.8 10^3/uL (0.5-4.7); ABSOLUTE MONOCYTES # (MANUAL) 0.6 10^3/uL (0.1-1.4); ABSOLUTE NEUTROPHILS# (MANUAL) 11.4 10^3/uL (1.7-8.2); BASOPHILS % (MANUAL) 0 % (0-2); EOSINOPHILS % (MANUAL) 1 % (0-6); LYMPHOCYTES % (MANUAL) 6 % (13-45); MONOCYTES % (MANUAL) 5 % (3-13); SEGMENTED NEUTROPHILS % (MAN) 88 % (42-78); TOTAL CELLS COUNTED 100
[2017-09-11 21:04] LABS: ANISOCYTOSIS SLIGHT; PLATELET COMMENT DECREASED; TOXIC GRANULATION SLIGHT
[2017-09-11] MEDS: CEFTRIAXONE SODIUM 1,000 MG in DEXTROSE 5%-WATER 100 ML IV SCH (22:45)
[2017-09-11] MEDS: TRAMADOL HCL 50 MG TABLET PO PRN (22:56)
[2017-09-11] MEDS ORDERED: CIPROFLOXACIN HCL 0.3% OPH SOLN 2.5 ML ONE (23:54)
[2017-09-12] MEDS: CIPROFLOXACIN HCL 0.3% OPH SOLN 2.5 ML OU SCH ×5 (00:41→23:26)
[2017-09-12] MEDS: ACETAMINOPHEN 325 MG TABLET PO PRN (00:41)
[2017-09-12] MEDS: TRAMADOL HCL 50 MG TABLET PO PRN ×2 (05:47→20:33)
[2017-09-12] MEDS: ALBUTEROL SULFATE 0.083% NEB 2.5 MG/3 ML AMPUL NEB PRN ×3 (08:57→20:52)
[2017-09-12] MEDS: LEVOFLOXACIN 750 MG/D5W RTU 750 MG/150 ML RTUPB IV SCH (10:06)
[2017-09-12] MEDS: ENOXAPARIN SODIUM INJ 40 MG/0.4 ML DISP.SYRIN SUBCUT SCH (11:04)
[2017-09-12 11:44] LABS: ABSOLUTE LYMPHOCYTES (AUTO) 0.8 10^3/uL (0.5-4.7); ABSOLUTE MONOCYTES (AUTO) 0.2 10^3/uL (0.1-1.4); ABSOLUTE NEUT (AUTO) 5.3 10^3/uL (1.7-8.2); BASOPHILS % (AUTO) 0.3 % (0-2); EOSINOPHILS % (AUTO) 0.1 % (0-6); MEAN CORPUSCULAR HEMOGLOBIN 37.6 pg (27.0-33.4); MEAN CORPUSCULAR HGB CONC 34.5 g/dL (32.0-36.0); MEAN CORPUSCULAR VOLUME 109 fl (80-97); MONOCYTES % (AUTO) 3.9 % (3-13); RED BLOOD COUNT 2.93 10^6/uL (3.72-5.28); RED CELL DISTRIBUTION WIDTH 14.9 % (11.5-14.0); SEGMENTED NEUTROPHILS % (AUTO) 83.7 % (42-78); TOTAL CELLS COUNTED % (AUTO) 100 %; WHITE BLOOD COUNT 6.3 10^3/uL (4.0-10.5)
[2017-09-12 12:02] LABS: ALANINE AMINOTRANSFERASE 36 U/L (9-52); ALBUMIN 3.3 g/dL (3.5-5.0); ALKALINE PHOSPHATASE 108 U/L (38-126); ANION GAP 8 (5-19); ASPARTATE AMINO TRANSFERASE 75 U/L (14-36); BILIRUBIN,DIRECT 0.7 mg/dL (0.0-0.4); BILIRUBIN,TOTAL 0.9 mg/dL (0.2-1.3); BLOOD UREA NITROGEN 13 mg/dL (7-20); CALCIUM 8.9 mg/dL (8.4-10.2); CARBON DIOXIDE 28 mmol/L (22-30); CHLORIDE 95 mmol/L (98-107); GLUCOSE 107 mg/dL (75-110); POTASSIUM 3.4 mmol/L (3.6-5.0); SODIUM 131.4 mmol/L (137-145); TOTAL PROTEIN 5.8 g/dL (6.3-8.2)
[2017-09-12 12:10] LABS: PLATELET COUNT 96 10^3/uL (150-450)
--- NOTE | 2017-09-12 17:36 | PDOC PROGRESS REPORT ---
Subjective Progress Note for:: 09/12/17 Subjective:: Patient is seen by the bedside, admitted for management of pneumonia, also found to have E. coli UTI, on IV antibiotic Reason For Visit: PNEUMONIA Physical Exam Vital Signs: Temp Pulse Resp BP Pulse Ox 99.4 F 111 H 20 130/86 H 96 09/12/17 15:41 09/12/17 15:41 09/12/17 15:41 09/12/17 15:41 09/12/17 15:41 Pulse Oximeter Continuous Start: 09/10/17 08: 08 Freq: RTQ4 Status: Active Document 09/12/17 12:15 HCR (Rec: 09/12/17 15:37 HCR [email or web address]) Pulse Oximetry Assessment Oxygen Saturation (92-100) 96 Oxygen Flow Rate (L/min) 2 Oxygen Delivery Method Nasal Cannula Equipment Usage Equipment in Use Continuous SpO2 Machine # 2 Intake & Output 09/11/17 09/12/17 09/13/17 06:59 06:59 06:59 Intake Total 210 1550 Output Total 200 300 Balance 10 1250 Weight 70.3 kg 70.3 kg General appearance: PRESENT: no acute distress Eye exam: PRESENT: PERRLA Respiratory exam: PRESENT: decreased breath sounds Cardiovascular exam: PRESENT: +S1, +S2 GI/Abdominal exam: PRESENT: soft Results Laboratory Results: 09/12/17 11:16 09/12/17 11:16 09/11/17 09/11/17 09/12/17 20:35 20:35 11:16 WBC 12.9 H 6.3 RBC 3.16 L 2.93 L Hgb 11.6 L 11.0 L Hct 34.2 L 32.0 L MCV 108 H 109 H MCH 36.8 H 37.6 H MCHC 34.0 34.5 RDW 14.3 H 14.9 H Plt Count 105 L 96 L Seg Neutrophils % Not Reportable 83.7 H Lymphocytes % Not Reportable 12.0 L Monocytes % Not Reportable 3.9 Eosinophils % Not Reportable 0.1 Basophils % Not Reportable 0.3 Absolute Neutrophils Not Reportable 5.3 Absolute Lymphocytes Not Reportable 0.8 Absolute Monocytes Not Reportable 0.2 Absolute Eosinophils Not Reportable 0.0 Absolute Basophils Not Reportable 0.0 Sodium 133.7 L Potassium 3.8 Chloride 99 Carbon Dioxide 25 Anion Gap 10 BUN 13 Creatinine 0.79 Est GFR ( Amer) > 60 Est GFR (Non-Af Amer) > 60 Glucose 101 Calcium 9.3 Total Bilirubin 0.9 AST 85 H ALT 35 Alkaline Phosphatase 108 Total Protein 6.7 Albumin 3.7 09/12/17 11:16 WBC RBC Hgb Hct MCV MCH MCHC RDW Plt Count Seg Neutrophils % Lymphocytes % Monocytes % Eosinophils % Basophils % Absolute Neutrophils Absolute Lymphocytes Absolute Monocytes Absolute Eosinophils Absolute Basophils Sodium 131.4 L Potassium 3.4 L Chloride 95 L Carbon Dioxide 28 Anion Gap 8 BUN 13 Creatinine 0.79 Est GFR ( Amer) > 60 Est GFR (Non-Af Amer) > 60 Glucose 107 Calcium 8.9 Total Bilirubin 0.9 AST 75 H ALT 36 Alkaline Phosphatase 108 Total Protein 5.8 L Albumin 3.3 L 09/10/17 09/10/17 09:36 09:36 Creatine Kinase 97 CK-MB (CK-2) 1.53 Troponin I < 0.012 Impressions: Chest CT 09/10/17 00:00 IMPRESSION: Minimal patchy airspace disease left posterior lung base, question early or developing pneumonia Chest X-Ray 09/10/17 00:21 IMPRESSION: No acute findings. Chronic scarring in the right hemithorax Assessment & Plan - Diagnosis (1) Acute hypoxemic respiratory failure Is this a current diagnosis for this admission?: Yes (2) Pneumonia Qualifiers: Pneumonia type: due to unspecified organism Laterality: right Lung location: upper lobe of lung Qualified Code(s): J18.1 - Lobar pneumonia, unspecified organism Is this a current diagnosis for this admission?: Yes Plan: Continue treatment (3) Chronic obstructive pulmonary disease (COPD) Qualifiers: COPD type: unspecified COPD Qualified Code(s): J44.9 - Chronic obstructive pulmonary disease, unspecified Is this a current diagnosis for this admission?: Yes (4) Conjunctivitis Qualifiers: Conjunctivitis type: acute Acute conjunctivitis type: unspecified Laterality: bilateral Qualified Code(s): H10.33 - Unspecified acute conjunctivitis, bilateral Is this a current diagnosis for this admission?: Yes (5) E. coli UTI Is this a current diagnosis for this admission?: Yes
[2017-09-12] MEDS: CEFTRIAXONE SODIUM 1,000 MG in DEXTROSE 5%-WATER 100 ML IV SCH (23:26)
[2017-09-13] MEDS: ACETAMINOPHEN 325 MG TABLET PO PRN (05:36)
[2017-09-13] MEDS: CIPROFLOXACIN HCL 0.3% OPH SOLN 2.5 ML OU SCH ×4 (05:37→23:49)
[2017-09-13] MEDS: ENOXAPARIN SODIUM INJ 40 MG/0.4 ML DISP.SYRIN SUBCUT SCH (09:04)
[2017-09-13] MEDS: LEVOFLOXACIN 750 MG/D5W RTU 750 MG/150 ML RTUPB IV SCH (09:15)
[2017-09-13] MEDS: TRAMADOL HCL 50 MG TABLET PO PRN (14:24)
--- NOTE | 2017-09-13 21:43 | PDOC PROGRESS REPORT ---
Subjective Progress Note for:: 09/13/17 Subjective:: Patient is alert, family in the room Reason For Visit: PNEUMONIA Physical Exam Vital Signs: Temp Pulse Resp BP Pulse Ox 98.1 F 117 H 20 128/87 H 100 09/13/17 16:00 09/13/17 16:00 09/13/17 16:00 09/13/17 16:00 09/13/17 16:00 Pulse Oximeter Continuous Start: 09/10/17 08: 08 Freq: RTQ4 Status: Active Document 09/13/17 12:10 HCR (Rec: 09/13/17 13:35 HCR [email or web address]) Pulse Oximetry Assessment Oxygen Saturation (92-100) 99 Oxygen Flow Rate (L/min) 2 Oxygen Delivery Method Nasal Cannula Equipment Usage Equipment in Use Continuous SpO2 Machine # 2 Intake & Output 09/12/17 09/13/17 09/14/17 06:59 06:59 06:59 Intake Total 1550 790 130 Output Total 300 75 Balance 1250 715 130 Weight 70.3 kg General appearance: PRESENT: mild distress Eye exam: PRESENT: PERRLA Respiratory exam: PRESENT: rales Cardiovascular exam: PRESENT: +S1, +S2 GI/Abdominal exam: PRESENT: soft Neurological exam: PRESENT: alert Results Laboratory Results: 09/12/17 11:16 09/12/17 11:16 09/10/17 09/10/17 09:36 09:36 Creatine Kinase 97 CK-MB (CK-2) 1.53 Troponin I < 0.012 Impressions: Chest CT 09/10/17 00:00 IMPRESSION: Minimal patchy airspace disease left posterior lung base, question early or developing pneumonia Chest X-Ray 09/10/17 00:21 IMPRESSION: No acute findings. Chronic scarring in the right hemithorax Assessment & Plan - Diagnosis (1) Acute hypoxemic respiratory failure Is this a current diagnosis for this admission?: Yes (2) Pneumonia Qualifiers: Pneumonia type: due to unspecified organism Laterality: right Lung location: upper lobe of lung Qualified Code(s): J18.1 - Lobar pneumonia, unspecified organism Is this a current diagnosis for this admission?: Yes (3) Chronic obstructive pulmonary disease (COPD) Qualifiers: COPD type: unspecified COPD Qualified Code(s): J44.9 - Chronic obstructive pulmonary disease, unspecified Is this a current diagnosis for this admission?: Yes (4) Conjunctivitis Qualifiers: Conjunctivitis type: acute Acute conjunctivitis type: unspecified Laterality: bilateral Qualified Code(s): H10.33 - Unspecified acute conjunctivitis, bilateral Is this a current diagnosis for this admission?: Yes (5) E. coli UTI Is this a current diagnosis for this admission?: Yes
[2017-09-13] MEDS: CEFTRIAXONE SODIUM 1,000 MG in DEXTROSE 5%-WATER 100 ML IV SCH (22:00)
[2017-09-14] MEDS: CIPROFLOXACIN HCL 0.3% OPH SOLN 2.5 ML OU SCH ×4 (05:21→23:52)
[2017-09-14] MEDS: ENOXAPARIN SODIUM INJ 40 MG/0.4 ML DISP.SYRIN SUBCUT SCH (10:15)
[2017-09-14] MEDS: LEVOFLOXACIN 750 MG/D5W RTU 750 MG/150 ML RTUPB IV SCH (10:17)
[2017-09-14] MEDS: ALBUTEROL SULFATE 0.083% NEB 2.5 MG/3 ML AMPUL NEB PRN (11:20)
[2017-09-14] MEDS ORDERED: POTASSIUM CHLORIDE 10 MEQ TABLET.SA PO ONE (12:00)
[2017-09-14] MEDS ORDERED: LORAZEPAM 1 MG TABLET PO ONE (13:30)
[2017-09-14] MEDS ORDERED: LORAZEPAM INJ 2 MG/1 ML VIAL IV ONE (20:00)
--- NOTE | 2017-09-14 20:47 | PDOC PROGRESS REPORT ---
Subjective Progress Note for:: 09/14/17 Subjective:: Patient apparently abuses alcohol, patient's daughter stated that she drinks every single day and that she drinks liquor. She was manifesting symptoms of alcohol withdrawal today, confused, agitated, talking out of her head, hallucinating there was associated tachycardia and increased blood pressure suggesting alcohol withdrawal syndrome which usually manifests about 72 hours after the last drink. She has been hospitalized for 72 hours Reason For Visit: PNEUMONIA Physical Exam Vital Signs: Temp Pulse Resp BP Pulse Ox 97.6 F 118 H 16 110/88 H 95 09/14/17 11:30 09/14/17 15:55 09/14/17 15:55 09/14/17 15:55 09/14/17 15:55 Pulse Oximeter Continuous Start: 09/10/17 08: 08 Freq: RTQ4 Status: Complete Document 09/14/17 13:23 [facility] [place]Rec: 09/14/17 13:24 [facility] [place] [id number]) Pulse Oximetry Assessment Oxygen Saturation (92-100) 100 Oxygen Flow Rate (L/min) 2 Oxygen Delivery Method Nasal Cannula Fraction of Inspired Oxygen (FIO2) 28 Equipment Usage Equipment in Use Continuous SpO2 Machine # N 13 Additional RT Notes Other With Martine VIEIRA Student Ben Koroma. Intake & Output 09/13/17 09/14/17 09/15/17 06:59 06:59 06:59 Intake Total 790 820 200 Output Total 75 Balance 715 820 200 Weight 69.8 kg General appearance: PRESENT: disheveled Respiratory exam: PRESENT: decreased breath sounds Cardiovascular exam: PRESENT: +S1 GI/Abdominal exam: PRESENT: soft Neurological exam: PRESENT: altered Results Laboratory Results: 09/12/17 11:16 09/12/17 11:16 09/10/17 09/10/17 09:36 09:36 Creatine Kinase 97 CK-MB (CK-2) 1.53 Troponin I < 0.012 Impressions: Chest CT 09/10/17 00:00 IMPRESSION: Minimal patchy airspace disease left posterior lung base, question early or developing pneumonia Chest X-Ray 09/10/17 00:21 IMPRESSION: No acute findings. Chronic scarring in the right hemithorax Assessment & Plan - Diagnosis (1) Acute hypoxemic respiratory failure Is this a current diagnosis for this admission?: Yes (2) Pneumonia Qualifiers: Pneumonia type: due to unspecified organism Laterality: right Lung location: upper lobe of lung Qualified Code(s): J18.1 - Lobar pneumonia, unspecified organism Is this a current diagnosis for this admission?: Yes (3) Chronic obstructive pulmonary disease (COPD) Qualifiers: COPD type: unspecified COPD Qualified Code(s): J44.9 - Chronic obstructive pulmonary disease, unspecified Is this a current diagnosis for this admission?: Yes (4) Conjunctivitis Qualifiers: Conjunctivitis type: acute Acute conjunctivitis type: unspecified Laterality: bilateral Qualified Code(s): H10.33 - Unspecified acute conjunctivitis, bilateral Is this a current diagnosis for this admission?: Yes (5) E. coli UTI Is this a current diagnosis for this admission?: Yes (6) Alcohol withdrawal delirium Is this a current diagnosis for this admission?: Yes Plan: Patient was admitted originally for the management of pneumonia, she is presently manifesting symptoms and signs of alcohol withdrawal delirium. She will be started on intravenous lorazepam on a schedule
[2017-09-14] MEDS ORDERED: LORAZEPAM 1 MG TABLET PO SCH (22:00)
[2017-09-14] MEDS: LORAZEPAM INJ 2 MG/1 ML VIAL IV SCH (22:07)
[2017-09-14] MEDS: CEFTRIAXONE SODIUM 1,000 MG in DEXTROSE 5%-WATER 100 ML IV SCH (22:07)
[2017-09-15] MEDS ORDERED: LORAZEPAM INJ 2 MG/1 ML VIAL IV SCH
[2017-09-15] MEDS: LORAZEPAM INJ 2 MG/1 ML VIAL IV SCH ×6 (01:23→22:16)
[2017-09-15] MEDS: CIPROFLOXACIN HCL 0.3% OPH SOLN 2.5 ML OU SCH ×4 (05:54→23:27)
[2017-09-15] MEDS: ENOXAPARIN SODIUM INJ 40 MG/0.4 ML DISP.SYRIN SUBCUT SCH (09:10)
[2017-09-15] MEDS: LEVOFLOXACIN 750 MG/D5W RTU 750 MG/150 ML RTUPB IV SCH (09:14)
--- NOTE | 2017-09-15 18:05 | PDOC PROGRESS REPORT ---
Subjective Progress Note for:: 09/15/17 Subjective:: She was seen by the bedside, she was admitted originally for pneumonia, she developed alcohol withdrawal syndrome, presently on lorazepam 2 mg IV every 4 on a scheduled that seems to be helping the symptoms of withdrawal, she is well sedated but arousable. Reason For Visit: PNEUMONIA Physical Exam Vital Signs: Temp Pulse Resp BP Pulse Ox 99.2 F 121 H 14 110/77 100 09/15/17 16:00 09/15/17 16:00 09/15/17 16:00 09/15/17 16:00 09/15/17 16:00 Pulse Oximeter Continuous Start: 09/10/17 08: 08 Freq: RTQ4 Status: Complete Document 09/15/17 10:32 [facility] [place] [facility] [place]Rec: 09/15/17 10:33 [facility] [place] [id number][place] Pulse Oximetry Assessment Equipment Usage Equipment Discontinued Continuous SpO2 Machine # N 13 Additional RT Notes Other order was discontinued yesterday Intake & Output 09/14/17 09/15/17 09/16/17 06:59 06:59 06:59 Intake Total 820 300 580 Output Total 500 Balance 820 300 80 Weight 69.8 kg 69.8 kg General appearance: PRESENT: no acute distress Eye exam: PRESENT: PERRLA Respiratory exam: PRESENT: clear to auscultation dawna Cardiovascular exam: PRESENT: +S1, +S2 GI/Abdominal exam: PRESENT: soft Neurological exam: PRESENT: alert, CN II-XII grossly intact Results Laboratory Results: 09/12/17 11:16 09/12/17 11:16 09/10/17 05:20 Blood Blood Culture - Final NO GROWTH IN 5 DAYS 09/10/17 09/10/17 09:36 09:36 Creatine Kinase 97 CK-MB (CK-2) 1.53 Troponin I < 0.012 Impressions: Chest CT 09/10/17 00:00 IMPRESSION: Minimal patchy airspace disease left posterior lung base, question early or developing pneumonia Chest X-Ray 09/10/17 00:21 IMPRESSION: No acute findings. Chronic scarring in the right hemithorax Assessment & Plan - Diagnosis (1) Acute hypoxemic respiratory failure Is this a current diagnosis for this admission?: Yes (2) Pneumonia Qualifiers: Pneumonia type: due to unspecified organism Laterality: right Lung location: upper lobe of lung Qualified Code(s): J18.1 - Lobar pneumonia, unspecified organism Is this a current diagnosis for this admission?: Yes (3) Chronic obstructive pulmonary disease (COPD) Qualifiers: COPD type: unspecified COPD Qualified Code(s): J44.9 - Chronic obstructive pulmonary disease, unspecified Is this a current diagnosis for this admission?: Yes (4) Conjunctivitis Qualifiers: Conjunctivitis type: acute Acute conjunctivitis type: unspecified Laterality: bilateral Qualified Code(s): H10.33 - Unspecified acute conjunctivitis, bilateral Is this a current diagnosis for this admission?: Yes (5) E. coli UTI Is this a current diagnosis for this admission?: Yes - Plan Summary Plan Summary: She will continue IV antibiotic, IV lorazepam
[2017-09-15 18:36] LABS: HEMATOCRIT 33.8 % (36.0-47.0); HEMOGLOBIN 11.6 g/dL (12.0-15.5); MEAN CORPUSCULAR HEMOGLOBIN 37.2 pg (27.0-33.4); MEAN CORPUSCULAR HGB CONC 34.3 g/dL (32.0-36.0); MEAN CORPUSCULAR VOLUME 109 fl (80-97); PLATELET COUNT 129 10^3/uL (150-450); RED BLOOD COUNT 3.12 10^6/uL (3.72-5.28); RED CELL DISTRIBUTION WIDTH 14.7 % (11.5-14.0); WHITE BLOOD COUNT 5.8 10^3/uL (4.0-10.5)
[2017-09-15 18:46] LABS: ALANINE AMINOTRANSFERASE 37 U/L (9-52); ALBUMIN 3.3 g/dL (3.5-5.0); ALKALINE PHOSPHATASE 108 U/L (38-126); ANION GAP 9 (5-19); ASPARTATE AMINO TRANSFERASE 56 U/L (14-36); BILIRUBIN,DIRECT 0.7 mg/dL (0.0-0.4); BILIRUBIN,TOTAL 0.8 mg/dL (0.2-1.3); BLOOD UREA NITROGEN 10 mg/dL (7-20); CALCIUM 9.2 mg/dL (8.4-10.2); CARBON DIOXIDE 26 mmol/L (22-30); CHLORIDE 99 mmol/L (98-107); GLUCOSE 93 mg/dL (75-110); POTASSIUM 3.9 mmol/L (3.6-5.0); TOTAL PROTEIN 6.4 g/dL (6.3-8.2)
[2017-09-15 18:57] LABS: ABSOLUTE LYMPHOCYTES# (MANUAL) 1.9 10^3/uL (0.5-4.7); ABSOLUTE MONOCYTES # (MANUAL) 0.8 10^3/uL (0.1-1.4); ABSOLUTE NEUTROPHILS# (MANUAL) 3.1 10^3/uL (1.7-8.2); BAND NEUTROPHILS % (MANUAL) 1 % (3-5); BASOPHILS % (MANUAL) 1 % (0-2); EOSINOPHILS % (MANUAL) 0 % (0-6); LYMPHOCYTES % (MANUAL) 32 % (13-45); METAMYELOCYTES % (MANUAL) 1 % (0); MONOCYTES % (MANUAL) 14 % (3-13); SEGMENTED NEUTROPHILS % (MAN) 51 % (42-78); TOTAL CELLS COUNTED 100
[2017-09-15 19:00] LABS: ANISOCYTOSIS SLIGHT; PLATELET COMMENT ADEQUATE; PLATELET LARGE PRESENT; POIKILOCYTOSIS SLIGHT; SCHISTOCYTES 1+; TOXIC GRANULATION 2+
[2017-09-15] MEDS ORDERED: LORAZEPAM INJ 2 MG/1 ML VIAL ONE (20:05)
[2017-09-15] MEDS: CEFTRIAXONE SODIUM 1,000 MG in DEXTROSE 5%-WATER 100 ML IV SCH (22:17)
[2017-09-16] MEDS: LORAZEPAM INJ 2 MG/1 ML VIAL IV SCH ×6 (01:15→23:38)
[2017-09-16] MEDS: CIPROFLOXACIN HCL 0.3% OPH SOLN 2.5 ML OU SCH ×4 (05:45→23:38)
[2017-09-16] MEDS: LEVOFLOXACIN 750 MG/D5W RTU 750 MG/150 ML RTUPB IV SCH (10:46)
[2017-09-16] MEDS: ENOXAPARIN SODIUM INJ 40 MG/0.4 ML DISP.SYRIN SUBCUT SCH (10:47)
[2017-09-16] MEDS: ALBUTEROL SULFATE 0.083% NEB 2.5 MG/3 ML AMPUL NEB PRN ×2 (18:26→23:52)
--- NOTE | 2017-09-16 20:50 | PDOC PROGRESS REPORT ---
Subjective Progress Note for:: 09/16/17 Subjective:: Patient was seen by the bedside, she was admitted for the management of pneumonia, complicated with E. coli UTI conjunctivitis, alcohol withdrawal syndrome. She was treated with IV lorazepam every 4 hours for the last 2-3 days. The frequency of the Lorazepam be reduced to every 6 hours Reason For Visit: PNEUMONIA Physical Exam Vital Signs: Temp Pulse Resp BP Pulse Ox 98.4 F 104 H 18 105/76 97 09/16/17 11:24 09/16/17 18:26 09/16/17 18:26 09/16/17 11:24 09/16/17 18:26 Pulse Oximeter Continuous Start: 09/10/17 08: 08 Freq: RTQ4 Status: Complete Document 09/15/17 10:32 [facility] [place]Rec: 09/15/17 10:33 [facility] [id number][place] Pulse Oximetry Assessment Equipment Usage Equipment Discontinued Continuous SpO2 Machine # N 13 Additional RT Notes Other order was discontinued yesterday Intake & Output 09/15/17 09/16/17 09/17/17 06:59 06:59 06:59 Intake Total 300 830 100 Output Total 500 Balance 300 330 100 Weight 69.8 kg 69.5 kg General appearance: PRESENT: no acute distress Eye exam: PRESENT: PERRLA Respiratory exam: PRESENT: clear to auscultation dawna Cardiovascular exam: PRESENT: +S1, +S2 GI/Abdominal exam: PRESENT: soft Neurological exam: PRESENT: alert Results Laboratory Results: 09/15/17 18:18 09/15/17 18:18 09/10/17 09/10/17 09:36 09:36 Creatine Kinase 97 CK-MB (CK-2) 1.53 Troponin I < 0.012 Impressions: Chest CT 09/10/17 00:00 IMPRESSION: Minimal patchy airspace disease left posterior lung base, question early or developing pneumonia Chest X-Ray 09/10/17 00:21 IMPRESSION: No acute findings. Chronic scarring in the right hemithorax Assessment & Plan - Diagnosis (1) Acute hypoxemic respiratory failure Is this a current diagnosis for this admission?: Yes (2) Pneumonia Qualifiers: Pneumonia type: due to unspecified organism Laterality: right Lung location: upper lobe of lung Qualified Code(s): J18.1 - Lobar pneumonia, unspecified organism Is this a current diagnosis for this admission?: Yes (3) Chronic obstructive pulmonary disease (COPD) Qualifiers: COPD type: unspecified COPD Qualified Code(s): J44.9 - Chronic obstructive pulmonary disease, unspecified Is this a current diagnosis for this admission?: Yes (4) Conjunctivitis Qualifiers: Conjunctivitis type: acute Acute conjunctivitis type: unspecified Laterality: bilateral Qualified Code(s): H10.33 - Unspecified acute conjunctivitis, bilateral Is this a current diagnosis for this admission?: Yes (5) E. coli UTI Is this a current diagnosis for this admission?: Yes (6) Alcohol withdrawal Qualifiers: Complication of substance-induced condition: with delirium Qualified Code(s ): F10.231 - Alcohol dependence with withdrawal delirium Is this a current diagnosis for this admission?: Yes - Plan Summary Plan Summary: Reduce Lorazepam frequency, follow-up chest x-ray
--- NOTE | 2017-09-16 22:07 | RADIOLOGY REPORT (SQ) ---
EXAM DESCRIPTION: CHEST PA/LAT COMPLETED DATE/TIME: 09/16/2017 9:52 pm REASON FOR STUDY: PNEUMONIA COMPARISON: 09/10/2017 EXAM PARAMETERS: NUMBER OF VIEWS: two views TECHNIQUE: Digital Frontal and Lateral radiographic views of the chest acquired. RADIATION DOSE: NA LIMITATIONS: none FINDINGS: LUNGS AND PLEURA: No acute opacities, masses or pneumothorax. Mild improved aeration in t he right upper lobe with residual parenchymal markings and apical thickening. No pleural effusion. MEDIASTINUM AND HILAR STRUCTURES: Stable. HEART AND VASCULAR STRUCTURES: Stable. BONES: No acute findings. HARDWARE: None in the chest. OTHER: No other significant finding. IMPRESSION: Mild improved aeration in the right upper lobe with residual parenchymal markings and a pical thickening. No acute findings. TECHNICAL DOCUMENTATION: JOB ID: [id number] [place]-72 2010 [employer]- All Rights Reserved
[2017-09-16] MEDS: CEFTRIAXONE SODIUM 1,000 MG in DEXTROSE 5%-WATER 100 ML IV SCH (22:20)
[2017-09-17] MEDS: LORAZEPAM INJ 2 MG/1 ML VIAL IV SCH ×3 (05:07→18:15)
[2017-09-17] MEDS: CIPROFLOXACIN HCL 0.3% OPH SOLN 2.5 ML OU SCH ×3 (05:07→18:16)
[2017-09-17] MEDS: ENOXAPARIN SODIUM INJ 40 MG/0.4 ML DISP.SYRIN SUBCUT SCH (09:26)
[2017-09-17] MEDS: ACETAMINOPHEN 325 MG TABLET PO PRN (12:02)
[2017-09-17] MEDS: ALBUTEROL SULFATE 0.083% NEB 2.5 MG/3 ML AMPUL NEB PRN (17:31)
--- NOTE | 2017-09-17 21:06 | PDOC PROGRESS REPORT ---
Subjective Progress Note for:: 09/17/17 Subjective:: She was admitted initially for the management of acute hypoxemic respiratory failure due to pneumonia, hospital course was complicated with alcohol withdrawal syndrome, she is sedated presently on lorazepam 2 mg IV every 6 hours she was on 2 mg every 4 hours for the last 3 days. The chest x-ray that was done yesterday showed improvement compared to admission chest x-ray Reason For Visit: PNEUMONIA Physical Exam Vital Signs: Temp Pulse Resp BP Pulse Ox 99.0 F 114 H 22 H 120/78 100 09/17/17 19:27 09/17/17 19:27 09/17/17 19:27 09/17/17 19:27 09/17/17 19:27 Pulse Oximeter Continuous Start: 09/10/17 08: 08 Freq: RTQ4 Status: Complete Document 09/15/17 10:32 [facility] [place] (Rec: 09/15/17 10:33 [facility] [place] [id number]) Pulse Oximetry Assessment Equipment Usage Equipment Discontinued Continuous SpO2 Machine # N 13 Additional RT Notes Other order was discontinued yesterday Intake & Output 09/16/17 09/17/17 09/18/17 06:59 06:59 06:59 Intake Total 830 200 560 Output Total 500 Balance 330 200 560 Weight 69.5 kg 69.2 kg General appearance: PRESENT: no acute distress Eye exam: PRESENT: PERRLA Respiratory exam: PRESENT: clear to auscultation dawna Cardiovascular exam: PRESENT: +S1, +S2 GI/Abdominal exam: PRESENT: soft Neurological exam: PRESENT: other - Sedated Results Laboratory Results: 09/15/17 18:18 09/15/17 18:18 09/10/17 09/10/17 09:36 09:36 Creatine Kinase 97 CK-MB (CK-2) 1.53 Troponin I < 0.012 Impressions: Chest CT 09/10/17 00:00 IMPRESSION: Minimal patchy airspace disease left posterior lung base, question early or developing pneumonia Chest X-Ray 09/16/17 00:00 IMPRESSION: Mild improved aeration in the right upper lobe with residual parenchymal markings and apical thickening. No acute findings. Assessment & Plan - Diagnosis (1) Acute hypoxemic respiratory failure Is this a current diagnosis for this admission?: Yes (2) Pneumonia Qualifiers: Pneumonia type: due to unspecified organism Laterality: right Lung location: upper lobe of lung Qualified Code(s): J18.1 - Lobar pneumonia, unspecified organism Is this a current diagnosis for this admission?: Yes (3) Chronic obstructive pulmonary disease (COPD) Qualifiers: COPD type: unspecified COPD Qualified Code(s): J44.9 - Chronic obstructive pulmonary disease, unspecified Is this a current diagnosis for this admission?: Yes (4) Conjunctivitis Qualifiers: Conjunctivitis type: acute Acute conjunctivitis type: unspecified Laterality: bilateral Qualified Code(s): H10.33 - Unspecified acute conjunctivitis, bilateral Is this a current diagnosis for this admission?: Yes (5) E. coli UTI Is this a current diagnosis for this admission?: Yes (6) Alcohol withdrawal Qualifiers: Complication of substance-induced condition: with delirium Qualified Code(s ): F10.231 - Alcohol dependence with withdrawal delirium Is this a current diagnosis for this admission?: Yes - Plan Summary Plan Summary: She will continue present sedation with lorazepam, continue slow wean of the sedation
[2017-09-17] MEDS ORDERED: ONDANSETRON 4 MG TAB.RAPDIS PO PRN (21:27)
[2017-09-17] MEDS ORDERED: CEFTRIAXONE SODIUM 1,000 MG in NORMAL SALINE 100 ML IV SCH (22:00)
[2017-09-17 22:06] LABS: ABSOLUTE BASOPHILS # (AUTO) 0.1 10^3/uL (0.0-0.2); ABSOLUTE EOSINOPHILS # (AUTO) 0.2 10^3/uL (0.0-0.6); ABSOLUTE LYMPHOCYTES (AUTO) 1.8 10^3/uL (0.5-4.7); ABSOLUTE NEUT (AUTO) 5.7 10^3/uL (1.7-8.2); BASOPHILS % (AUTO) 0.6 % (0-2); HEMATOCRIT 35.5 % (36.0-47.0); HEMOGLOBIN 11.9 g/dL (12.0-15.5); LYMPHOCYTES % (AUTO) 20.3 % (13-45); MEAN CORPUSCULAR HEMOGLOBIN 37.1 pg (27.0-33.4); MEAN CORPUSCULAR HGB CONC 33.7 g/dL (32.0-36.0); MONOCYTES % (AUTO) 11.8 % (3-13); PLATELET COUNT 200 10^3/uL (150-450); RED BLOOD COUNT 3.22 10^6/uL (3.72-5.28); RED CELL DISTRIBUTION WIDTH 14.7 % (11.5-14.0); SEGMENTED NEUTROPHILS % (AUTO) 65.3 % (42-78); TOTAL CELLS COUNTED % (AUTO) 100 %; WHITE BLOOD COUNT 8.7 10^3/uL (4.0-10.5)
[2017-09-17 22:13] LABS: ALANINE AMINOTRANSFERASE 27 U/L (9-52); ALBUMIN 3.5 g/dL (3.5-5.0); ALKALINE PHOSPHATASE 97 U/L (38-126); ANION GAP 10 (5-19); ASPARTATE AMINO TRANSFERASE 34 U/L (14-36); BILIRUBIN,DIRECT 0.3 mg/dL (0.0-0.4); BILIRUBIN,TOTAL 0.6 mg/dL (0.2-1.3); BLOOD UREA NITROGEN 10 mg/dL (7-20); CALCIUM 10.2 mg/dL (8.4-10.2); CARBON DIOXIDE 31 mmol/L (22-30); CHLORIDE 100 mmol/L (98-107); GLUCOSE 138 mg/dL (75-110); POTASSIUM 4.2 mmol/L (3.6-5.0); TOTAL PROTEIN 6.7 g/dL (6.3-8.2)
[2017-09-17] MEDS: GUAIFENESIN SYRP 200 MG/10 ML UDC PO PRN (22:16)
[2017-09-17 22:31] LABS: ANISOCYTOSIS SLIGHT; PLATELET COMMENT ADEQUATE; POIKILOCYTOSIS SLIGHT; TARGET CELLS SLIGHT
[2017-09-17 22:34] LABS: MEAN CORPUSCULAR VOLUME 110 fl (80-97)
[2017-09-18] MEDS: CIPROFLOXACIN HCL 0.3% OPH SOLN 2.5 ML OU SCH ×5 (00:09→23:33)
[2017-09-18] MEDS: LORAZEPAM INJ 2 MG/1 ML VIAL IV SCH ×4 (00:09→17:33)
[2017-09-18] MEDS: TRAMADOL HCL 50 MG TABLET PO PRN (06:01)
[2017-09-18 06:26] LABS: ABSOLUTE BASOPHILS # (AUTO) 0.1 10^3/uL (0.0-0.2); ABSOLUTE EOSINOPHILS # (AUTO) 0.2 10^3/uL (0.0-0.6); ABSOLUTE LYMPHOCYTES (AUTO) 1.8 10^3/uL (0.5-4.7); ABSOLUTE MONOCYTES (AUTO) 1.2 10^3/uL (0.1-1.4); ABSOLUTE NEUT (AUTO) 5.8 10^3/uL (1.7-8.2); BASOPHILS % (AUTO) 0.8 % (0-2); EOSINOPHILS % (AUTO) 2.1 % (0-6); HEMATOCRIT 32.5 % (36.0-47.0); HEMOGLOBIN 11.3 g/dL (12.0-15.5); LYMPHOCYTES % (AUTO) 19.9 % (13-45); MEAN CORPUSCULAR HEMOGLOBIN 37.6 pg (27.0-33.4); MEAN CORPUSCULAR HGB CONC 34.8 g/dL (32.0-36.0); MEAN CORPUSCULAR VOLUME 108 fl (80-97); MONOCYTES % (AUTO) 13.5 % (3-13); PLATELET COUNT 205 10^3/uL (150-450); RED CELL DISTRIBUTION WIDTH 14.7 % (11.5-14.0); SEGMENTED NEUTROPHILS % (AUTO) 63.7 % (42-78); TOTAL CELLS COUNTED % (AUTO) 100 %; WHITE BLOOD COUNT 9.1 10^3/uL (4.0-10.5)
[2017-09-18 06:48] LABS: ALANINE AMINOTRANSFERASE 30 U/L (9-52); ALBUMIN 3.2 g/dL (3.5-5.0); ALKALINE PHOSPHATASE 96 U/L (38-126); ANION GAP 9 (5-19); ASPARTATE AMINO TRANSFERASE 26 U/L (14-36); BILIRUBIN,DIRECT 0.3 mg/dL (0.0-0.4); BILIRUBIN,TOTAL 0.6 mg/dL (0.2-1.3); BLOOD UREA NITROGEN 10 mg/dL (7-20); CALCIUM 10.1 mg/dL (8.4-10.2); CARBON DIOXIDE 27 mmol/L (22-30); CHLORIDE 102 mmol/L (98-107); GLUCOSE 92 mg/dL (75-110); POTASSIUM 4.2 mmol/L (3.6-5.0); SODIUM 137.7 mmol/L (137-145); TOTAL PROTEIN 6.3 g/dL (6.3-8.2)
[2017-09-18] MEDS: ENOXAPARIN SODIUM INJ 40 MG/0.4 ML DISP.SYRIN SUBCUT SCH (10:09)
[2017-09-18] MEDS: ALBUTEROL SULFATE 0.083% NEB 2.5 MG/3 ML AMPUL NEB PRN (10:17)
[2017-09-18] MEDS: GUAIFENESIN SYRP 200 MG/10 ML UDC PO PRN (10:41)
--- NOTE | 2017-09-18 15:12 | PDOC PROGRESS REPORT ---
Subjective Progress Note for:: 09/18/17 Subjective:: No chest pain or difficulty with breathing. No fever or chills. Remain on alcohol withdrawal treatment. No reported fever or chills. No nausea or vomiting. Reason For Visit: PNEUMONIA Physical Exam Vital Signs: Temp Pulse Resp BP Pulse Ox 98.6 F 120 H 18 103/75 98 09/18/17 11:34 09/18/17 11:34 09/18/17 11:34 09/18/17 11:34 09/18/17 11:34 Pulse Oximeter Continuous Start: 09/10/17 08: 08 Freq: RTQ4 Status: Complete Document 09/15/17 10:32 [facility] [place]: 09/15/17 10:33 [facility] [id number][place] Pulse Oximetry Assessment Equipment Usage Equipment Discontinued Continuous SpO2 Machine # N 13 Additional RT Notes Other order was discontinued yesterday Intake & Output 09/17/17 09/18/17 09/19/17 06:59 06:59 06:59 Intake Total 200 870 Balance 200 870 Weight 69.2 kg 69.7 kg General appearance: PRESENT: no acute distress, well-developed, well-nourished Head exam: PRESENT: atraumatic, normocephalic Eye exam: PRESENT: conjunctiva pink, EOMI, PERRLA. ABSENT: scleral icterus Mouth exam: PRESENT: moist Respiratory exam: PRESENT: clear to auscultation dawna Cardiovascular exam: PRESENT: RRR. ABSENT: diastolic murmur, rubs, systolic murmur Vascular exam: PRESENT: normal capillary refill. ABSENT: pallor GI/Abdominal exam: PRESENT: normal bowel sounds, soft. ABSENT: distended, guarding, mass, organolmegaly, rebound, tenderness Extremities exam: ABSENT: pedal edema Musculoskeletal exam: PRESENT: normal inspection Neurological exam: PRESENT: alert - appropriate in simple responses, awake Psychiatric exam: PRESENT: appropriate affect, normal mood. ABSENT: homicidal ideation, suicidal ideation Skin exam: PRESENT: dry, intact, warm. ABSENT: cyanosis, rash Results Laboratory Results: 09/18/17 05:39 09/18/17 05:39 09/17/17 09/17/17 09/18/17 21:48 21:48 05:39 WBC 8.7 9.1 RBC 3.22 L 3.00 L Hgb 11.9 L 11.3 L Hct 35.5 L 32.5 L MCV 110 H 108 H MCH 37.1 H 37.6 H MCHC 33.7 34.8 RDW 14.7 H 14.7 H Plt Count 200 205 Seg Neutrophils % 65.3 63.7 Lymphocytes % 20.3 19.9 Monocytes % 11.8 13.5 H Eosinophils % 2.0 2.1 Basophils % 0.6 0.8 Absolute Neutrophils 5.7 5.8 Absolute Lymphocytes 1.8 1.8 Absolute Monocytes 1.0 1.2 Absolute Eosinophils 0.2 0.2 Absolute Basophils 0.1 0.1 Sodium 141.0 Potassium 4.2 Chloride 100 Carbon Dioxide 31 H Anion Gap 10 BUN 10 Creatinine 0.71 Est GFR ( Amer) > 60 Est GFR (Non-Af Amer) > 60 Glucose 138 H Calcium 10.2 Total Bilirubin 0.6 AST 34 ALT 27 Alkaline Phosphatase 97 Total Protein 6.7 Albumin 3.5 09/18/17 05:39 WBC RBC Hgb Hct MCV MCH MCHC RDW Plt Count Seg Neutrophils % Lymphocytes % Monocytes % Eosinophils % Basophils % Absolute Neutrophils Absolute Lymphocytes Absolute Monocytes Absolute Eosinophils Absolute Basophils Sodium 137.7 Potassium 4.2 Chloride 102 Carbon Dioxide 27 Anion Gap 9 BUN 10 Creatinine 0.64 Est GFR ( Amer) > 60 Est GFR (Non-Af Amer) > 60 Glucose 92 Calcium 10.1 Total Bilirubin 0.6 AST 26 ALT 30 Alkaline Phosphatase 96 Total Protein 6.3 Albumin 3.2 L 09/10/17 09/10/17 09:36 09:36 Creatine Kinase 97 CK-MB (CK-2) 1.53 Troponin I < 0.012 Impressions: Chest CT 09/10/17 00:00 IMPRESSION: Minimal patchy airspace disease left posterior lung base, question early or developing pneumonia Chest X-Ray 09/16/17 00:00 IMPRESSION: Mild improved aeration in the right upper lobe with residual parenchymal markings and apical thickening. No acute findings. Assessment & Plan - Diagnosis (1) Acute hypoxemic respiratory failure Is this a current diagnosis for this admission?: Yes Plan: Improving. Continue supportive therapy. See covering attending physician orders. (2) Chronic obstructive pulmonary disease (COPD) Qualifiers: COPD type: unspecified COPD Qualified Code(s): J44.9 - Chronic obstructive pulmonary disease, unspecified Is this a current diagnosis for this admission?: Yes Plan: Improving. See covering attending physician orders. (3) Pneumonia Qualifiers: Pneumonia type: due to unspecified organism Laterality: right Lung location: lower lobe of lung Qualified Code(s): J18.1 - Lobar pneumonia, unspecified organism Is this a current diagnosis for this admission?: Yes Plan: Improving. Continue IV antibiotic therapy. See covering attending physician orders. (4) Alcohol withdrawal delirium Is this a current diagnosis for this admission?: Yes Plan: Improving. Continue supportive therapy. See covering attending physician orders. - Time Time Spent with patient: 25-34 minutes Medications reviewed and adjusted accordingly: Yes Anticipated discharge: Home with Homehealth Within: Other - Inpatient Certification Based on my medical assessment, after consideration of the patient's comorbidities, presenting symptoms, or acuity I expect that the services needed warrant INPATIENT care.: Yes I certify that my determination is in accordance with my understanding of Medicare's requirements for reasonable and necessary INPATIENT services [42 CFR 412.3e].: Yes Medical Necessity: Need Close Monitoring Due to Risk of Patient Decompensation, Need For IV Fluids, Need For Continuous Telemetry Monitoring, Need for IV Antibiotics, Risk of Complication if Not Cared For in Hospital Post Hospital Care: D/C Director Translation Documentation - Plan Summary Plan Summary: Improving. Continue supportive therapy. See covering attending physician orders.
--- NOTE | 2017-09-18 18:28 | RADIOLOGY REPORT (SQ) ---
EXAM DESCRIPTION: FOREARM LEFT; HUMERUS LEFT COMPLETED DATE/TIME: 09/18/2017 6:13 pm REASON FOR STUDY: left arm pain COMPARISON: None. FINDINGS: Two views left humerus: Potential osteopenia. No displaced fracture or bone lesion or ra diopaque foreign body. No shoulder disarticulation. Left lung relatively clear. Two views left forearm: Osteopenic. No fracture or bone lesion or radiopaque foreign body in the so ft tissues. No evidence of elbow joint effusion. IMPRESSION: As above. No acute left humerus or forearm changes. TECHNICAL DOCUMENTATION: JOB ID: [id number]
[2017-09-18] MEDS: LORAZEPAM 1 MG TABLET PO PRN (23:33)
[2017-09-19] MEDS: ACETAMINOPHEN 325 MG TABLET PO PRN (08:14)
[2017-09-19] MEDS: ENOXAPARIN SODIUM INJ 40 MG/0.4 ML DISP.SYRIN SUBCUT SCH (09:39)
[2017-09-19] MEDS: GUAIFENESIN SYRP 200 MG/10 ML UDC PO PRN (13:02)
[2017-09-19] MEDS: ALBUTEROL SULFATE 0.083% NEB 2.5 MG/3 ML AMPUL NEB PRN ×2 (13:21→22:29)
--- NOTE | 2017-09-19 16:44 | PDOC PROGRESS REPORT ---
Subjective Progress Note for:: 09/19/17 Subjective:: Patient continue to express pain in left forearm. No chest pain or difficulty with breathing. No fever or chills. No abdominal pain, nausea or vomiting. Transfer with 2 person assist in her room. Reason For Visit: PNEUMONIA Physical Exam Vital Signs: Temp Pulse Resp BP Pulse Ox 98.6 F 111 H 16 136/79 H 99 09/19/17 11:38 09/19/17 13:21 09/19/17 13:21 09/19/17 11:38 09/19/17 13:21 Pulse Oximeter Continuous Start: 09/10/17 08: 08 Freq: RTQ4 Status: Complete Document 09/15/17 10:32 [facility] [place] (Rec: 09/15/17 10:33 [facility] [place] [id number]) Pulse Oximetry Assessment Equipment Usage Equipment Discontinued Continuous SpO2 Machine # N 13 Additional RT Notes Other order was discontinued yesterday Intake & Output 09/18/17 09/19/17 09/20/17 06:59 06:59 06:59 Intake Total 870 782 Balance 870 782 Weight 69.7 kg 72.9 kg Physical Exam: General appearance: PRESENT: no acute distress, well-developed, well-nourished Head exam: PRESENT: atraumatic, normocephalic Eye exam: PRESENT: conjunctiva pink, EOMI, PERRLA. ABSENT: scleral icterus Mouth exam: PRESENT: moist Respiratory exam: PRESENT: clear to auscultation dawna Cardiovascular exam: PRESENT: RRR. ABSENT: diastolic murmur, rubs, systolic murmur GI/Abdominal exam: PRESENT: normal bowel sounds, soft. ABSENT: distended, guarding, mass, organomegaly, rebound, tenderness Extremities exam: ABSENT: pedal edema Musculoskeletal exam: PRESENT: normal inspection, tenderness to palpation of left forearm and wrist region. Neurological exam: PRESENT: alert - appropriate in simple responses, awake Psychiatric exam: PRESENT: appropriate affect, normal mood. ABSENT: homicidal ideation, suicidal ideation Skin exam: PRESENT: dry, intact, warm. ABSENT: cyanosis, rash Results Laboratory Results: 09/18/17 05:39 09/18/17 05:39 09/10/17 09/10/17 09:36 09:36 Creatine Kinase 97 CK-MB (CK-2) 1.53 Troponin I < 0.012 Impressions: Chest CT 09/10/17 00:00 IMPRESSION: Minimal patchy airspace disease left posterior lung base, question early or developing pneumonia Chest X-Ray 09/16/17 00:00 IMPRESSION: Mild improved aeration in the right upper lobe with residual parenchymal markings and apical thickening. No acute findings. Humerus X-Ray 09/18/17 00:00 IMPRESSION: As above. No acute left humerus or forearm changes. Forearm X-Ray 09/18/17 19:16 IMPRESSION: As above. No acute left humerus or forearm changes. Assessment & Plan - Diagnosis (1) Acute hypoxemic respiratory failure Is this a current diagnosis for this admission?: Yes (2) Chronic obstructive pulmonary disease (COPD) Qualifiers: COPD type: unspecified COPD Qualified Code(s): J44.9 - Chronic obstructive pulmonary disease, unspecified Is this a current diagnosis for this admission?: Yes (3) Pneumonia Qualifiers: Pneumonia type: due to unspecified organism Laterality: right Lung location: lower lobe of lung Qualified Code(s): J18.1 - Lobar pneumonia, unspecified organism Is this a current diagnosis for this admission?: Yes (4) Alcohol withdrawal delirium Is this a current diagnosis for this admission?: Yes - Time Time Spent with patient: 25-34 minutes Medications reviewed and adjusted accordingly: Yes Anticipated discharge: Home with Homehealth Within: Other - Inpatient Certification Based on my medical assessment, after consideration of the patient's comorbidities, presenting symptoms, or acuity I expect that the services needed warrant INPATIENT care.: Yes I certify that my determination is in accordance with my understanding of Medicare's requirements for reasonable and necessary INPATIENT services [42 CFR 412.3e].: Yes Medical Necessity: Need Close Monitoring Due to Risk of Patient Decompensation, Need For Continuous Telemetry Monitoring, Risk of Complication if Not Cared For in Hospital Post Hospital Care: D/C Superintendent Overhead Distribution Documentation - Plan Summary Plan Summary: Continue current medication management. D/C IV fluid and antibiotic coverage due to loss of IV access. In the absence of infectious process and adequate antibiotic duration for E. Coli UTI, I will hold off starting on oral antibiotic therapy. Request for PT evaluation for ambulatory safety. Obtain serum Uric acid level.
[2017-09-19] MEDS: LORAZEPAM 1 MG TABLET PO PRN (21:55)
[2017-09-20] MEDS: GUAIFENESIN SYRP 200 MG/10 ML UDC PO PRN ×2 (01:05→13:24)
[2017-09-20] MEDS: ENOXAPARIN SODIUM INJ 40 MG/0.4 ML DISP.SYRIN SUBCUT SCH (10:04)
[2017-09-20] MEDS: ALBUTEROL SULFATE 0.083% NEB 2.5 MG/3 ML AMPUL NEB PRN (10:36)
[2017-09-20 18:46] VITALS: BP 118/52
--- NOTE | 2017-09-20 20:12 | PDOC DISCHARGE SUMMARY ---
General - Admit/Disc Date/PCP Admission Date/Primary Care Provider: 09/10/17 03:25 ABNER WILKINS MD Discharge Date: 09/20/17 - Discharge Diagnosis (1) Acute hypoxemic respiratory failure Is this a current diagnosis for this admission?: Yes (2) Pneumonia Is this a current diagnosis for this admission?: Yes (3) Chronic obstructive pulmonary disease (COPD) Is this a current diagnosis for this admission?: Yes (4) Conjunctivitis Is this a current diagnosis for this admission?: Yes (5) E. coli UTI Is this a current diagnosis for this admission?: Yes (6) Alcohol withdrawal Is this a current diagnosis for this admission?: Yes - Additional Information Discharge Diet: As Tolerated Discharge Activity: Activity As Tolerated Prescriptions: Thiamine HCl [Thiamine 100 mg Tablet] 100 mg PO DAILY #30 tablet Home Medications: Megestrol Acetate [Megace Es] 5 ml PO DAILY 09/10/17 Acetaminophen [Tylenol 325 mg Tablet] 650 mg PO Q4HP PRN tablet 09/20/17 Thiamine HCl [Thiamine 100 mg Tablet] 100 mg PO DAILY #30 tablet 09/20/17 History of Present Illness History of Present Illness: MAAME SAENZ is a 51 year old female history of non-Hodgkin's lymphoma status post chemotherapy she presented to the emergency room for evaluation of shortness of breath, fever, generalized body ache. She was found to have low oxygen saturation, SaO2 88% on room air, in the emergency room she was evaluated she was treated bronchodilators and IV antibiotic. Patient continued to smoke cigarettes, CT chest without contrast was ordered but she , groundglass opacity also found was extensive changes of post inflammatory process with volume loss, bronchiectasis on consolidation in the right upper lobe. Hospital Course Hospital Course: Patient was admitted for the management of acute hypoxemic respiratory failure due to pneumonia E. coli UTI. Hospital course was complicated with alcohol withdrawal syndrome, she was treated with IV lorazepam for sedation. She was well sedated. Patient is improved considerably with treatment, She required oxygen through nasal cannula.she is discharged home today Physical Exam Vital Signs: Temp Pulse Resp BP Pulse Ox 98.2 F 124 H 18 118/52 L 96 09/20/17 18:43 09/20/17 18:43 09/20/17 18:43 09/20/17 18:43 09/20/17 18:43 Pulse Oximeter Continuous Start: 09/10/17 08: 08 Freq: RTQ4 Status: Complete Document 09/15/17 10:32 [facility] [place] (Rec: 09/15/17 10:33 [facility] [place] [id number]) Pulse Oximetry Assessment Equipment Usage Equipment Discontinued Continuous SpO2 Machine # [id number] Additional RT Notes Other order was discontinued yesterday Intake & Output 09/19/17 09/20/17 09/21/17 06:59 06:59 06:59 Intake Total 782 1200 Output Total 1000 Balance 782 200 Weight 72.9 kg 70.7 kg General appearance: PRESENT: no acute distress Head exam: PRESENT: atraumatic, normocephalic Eye exam: PRESENT: PERRLA Ear exam: PRESENT: normal external ear exam Mouth exam: PRESENT: moist, tongue midline Neck exam: PRESENT: full ROM. ABSENT: carotid bruit, JVD, lymphadenopathy, thyromegaly Respiratory exam: PRESENT: clear to auscultation dawna Cardiovascular exam: PRESENT: +S1, +S2 Pulses: PRESENT: normal dorsalis pedis pul, +2 pedal pulses bilateral Vascular exam: PRESENT: normal capillary refill GI/Abdominal exam: PRESENT: soft Rectal exam: PRESENT: deferred Neurological exam: PRESENT: alert Psychiatric exam: PRESENT: appropriate affect, normal mood. ABSENT: homicidal ideation, suicidal ideation Skin exam: PRESENT: dry, intact, warm. ABSENT: cyanosis, rash Results Laboratory Results: 09/18/17 05:39 09/18/17 05:39 09/10/17 09/10/17 09:36 09:36 Creatine Kinase 97 CK-MB (CK-2) 1.53 Troponin I < 0.012 Impressions: Chest CT 09/10/17 00:00 IMPRESSION: Minimal patchy airspace disease left posterior lung base, question early or developing pneumonia Chest X-Ray 09/16/17 00:00 IMPRESSION: Mild improved aeration in the right upper lobe with residual parenchymal markings and apical thickening. No acute findings. Humerus X-Ray 09/18/17 00:00 IMPRESSION: As above. No acute left humerus or forearm changes. Forearm X-Ray 09/18/17 19:16 IMPRESSION: As above. No acute left humerus or forearm changes. Qualifiers - * PATEINT BEING DISCHARGED WITH ANY OF THE FOLLOWING DIAGNOSIS?: No VTE patient discharged on overlapping Therapy?: No
== END 2017-09-20 19:30 | disposition home or self-care (01) | DRG 193 ==
LOC: ER 23:46 → UNDOADMIN 09-10 03:25 → EH 09-10 03:25 → 4S 09-10 21:30
PROVIDERS: ADMIT Internal Medicine; ATTEND Internal Medicine
DX: J18.9 Pneumonia, unspecified organism (principal); J96.01 Acute respiratory failure with hypoxia; N39.0 Urinary tract infection, site not specified; C85.90 Non-Hodgkin lymphoma, unspecified, unspecified site; F10.231 Alcohol dependence with withdrawal delirium; J44.9 Chronic obstructive pulmonary disease, unspecified; H10.33 Unspecified acute conjunctivitis, bilateral; B96.20 Unspecified Escherichia coli [E. coli] as the cause of diseases classified elsewhere; F17.210 Nicotine dependence, cigarettes, uncomplicated
CPT/HCPCS: 36415; 71046; 71250; 80053; 81001; 82550; 82553; 82803; 83036; 83605; 84484; 84550; 85025; 85610; 87040; 87086; 87088; 87186; 87804; 93005; 93010; 94762; 96361; 96374; 99285; J0456; J0696; J1650; J1956; J2060; J2930; J3490; J7030; J7620; S0119

== ENCOUNTER 2017-11-28 20:21 | Inpatient (IN) | payer MEDICAID ==
[2017-11-28] MEDS ORDERED: NORMAL SALINE 1000 ML 1,000 ML IV ONE ×3 (21:04→23:42)
--- NOTE | 2017-11-28 21:06 | ER Document Report ---
ED General - General Chief Complaint: Abdominal Pain Stated Complaint: CHEST PAIN WITH COUGH Time Seen by Provider: 11/28/17 20:32 Cannot obtain history due to: Unstable vital signs Notes: Patient is a 52 year old female with a past medical history of recurrent pneumonia, alcohol dependence with a history of alcohol withdrawal, COPD, who presents with 24 hours of cough, shortness of breath and generalized weakness. The patient is a poor historian, has difficulty explaining the onset and progression of her symptoms. She also appears quite ill, tremulous, tachycardic and somewhat listless. History is therefore quite limited. Patient is however able to speak to me, states that her symptoms feel somewhat similar when she had pneumonia in the past. She does deny any vomiting, diarrhea or syncope. She has not seen her primary doctor regarding today's concerns. TRAVEL OUTSIDE OF THE [place] IN LAST 30 DAYS: No - Related Data Allergies/Adverse Reactions: No Known Allergies Allergy (Verified 04/25/17 18:37) Past Medical History - General Information source: Patient - Social History Smoking Status: Current Every Day Smoker Frequency of alcohol use: Heavy Drug Abuse: None Lives with: Family Family History: Reviewed & Not Pertinent Pulmonary Medical History: Reports: Hx COPD Denies: Hx Tuberculosis Renal/ Medical History: Denies: Hx Peritoneal Dialysis Malignancy Medical History: Reports: Hx Lymphoma Psychiatric Medical History: Denies: Hx Depression Past Surgical History: Reports: Hx Section, Hx Hysterectomy, Hx Orthopedic Surgery - Left hip replacement, right knee, Hx Tonsillectomy, Hx Tubal Ligation. Denies: Hx Pacemaker - Immunizations Hx Diphtheria, Pertussis, Tetanus Vaccination: Yes Review of Systems - Review of Systems Notes: Constitutional: Negative for fever. HENT: Negative for sore throat. Eyes: Negative for visual changes. Cardiovascular: Negative for chest pain. Respiratory: Positive for shortness of breath and cough Gastrointestinal: Negative for abdominal pain, vomiting or diarrhea. Genitourinary: Negative for dysuria. Musculoskeletal: Negative for back pain. Skin: Negative for rash. Neurological: Negative for headaches, weakness or numbness. 10 point ROS negative except as marked above and in HPI. Physical Exam - Vital signs Vitals: Pulse Ox 96 11/28/17 20:38 Interpretation: Tachycardic Notes: PHYSICAL EXAMINATION: GENERAL: Appears older than stated age, somewhat listless, appears uncomfortable HEAD: Atraumatic, normocephalic. EYES: Pupils equal round and reactive to light, extraocular movements intact, sclera anicteric, conjunctiva are normal. ENT: nares patent, oropharynx clear without exudates. Moderately dry mucous membranes. NECK: Normal range of motion, supple without lymphadenopathy LUNGS: Moderate tachypnea, somewhat labored breathing. No wheezing or rales. HEART: Regular tachycardia ABDOMEN: Soft, nontender, normoactive bowel sounds. No guarding, no rebound. No masses appreciated. EXTREMITIES: 4+ pitting edema in the right lower extremity, trace in the left. NEUROLOGICAL: No focal neurological deficits. Moves all extremities spontaneously and on command. PSYCH: Somewhat lethargic although alert and oriented SKIN: Warm, Dry, normal turgor, no rashes or lesions noted. Course - Re-evaluation Re-evalutation: 11/28/17 21:05 Patient presents severely tachycardic, heart rate 147 on initial presentation, visibly dyspneic with some labored breathing. Patient has prominent swelling of her distal right lower extremity which she states "comes and goes" but is currently 4+ and pitting. Patient has a history of lymphoma but has been off of chemotherapy for almost 11 years. However given her tachycardia, dyspnea, pleuritic pain and unilateral leg swelling am extremely concerned with possibility of an acute pulmonary embolus. The patient is was not initially hypoxic although is currently requiring 2 L by nasal cannula to maintain oxygen saturations of 95% or greater. She is not hypotensive and does not show any obvious evidence of right heart strain on EKG. However patient is quite ill and will require frequent reassessments. A stat CT of the chest will be obtained in additional standard laboratory panels. Will also provide IV fluids. Will continue to reassess at regular intervals. 11/28/17 22:16 CT of the chest is completed but has not yet been read. Initial laboratories overall unremarkable with exception of mild elevated alcohol level as well as chronic anemia. Patient's tachycardia has improved somewhat currently 125 bpm and she remains without hypotension. Continues to have some oxygen dependency currently saturating 92% on 2 L by nasal cannula. Will continue to monitor closely. 11/28/17 22:44 CT does suggest an acute right-sided pneumonia with associated pleural effusion. The gallbladder is noted to be edematous in the CT scan and patient was complaining of some mild upper abdominal pain. Although this was not initially reproducible on abdominal exam she does have repeated upper abdominal pain on reexamination. Will obtain a right upper quadrant ultrasound to evaluate for possible acute cholecystitis given this finding on CT scan. Will also give thiamine and folate as it appears that the patient may chronically abuse alcohol. 11/28/17 23:41 Patient is beginning to become more hypotensive, current pressure 80 and 60. We have one good IV and are currently running fluids wide open. I do want to place a right external jugular vein axis but the patient has refused stating that she will not allow any placement of IVs in her neck. Patient is very difficult IV access otherwise. She is also refusing central line placement. Will continue to push IV fluids, will begin IV Zosyn as patient is at risk for age Given that she was hospitalized within the last 2 months. Will ask ultrasound, do the gallbladder ultrasound portably given the patient's hypotension. 11/29/17 00:20 We have an additional 20-gauge ultrasound placed IV at this time point. We are hanging fluids wide open. Patient's lactate is markedly elevated at 8.5. This is indicative of severe sepsis. Patient's blood pressure is mildly improved 80- 164 with a map of 72. Will continue with aggressive rehydration, broad spectrum IV antibiotics and frequent reassessments. 11/29/17 01:08 RUQ ultrasound with non-specific findings, patient without significant tenderness on palpation of RUQ at time of assessment. Patients blood pressure has much improved as she works through her fourth liter of additional fluid. Current blood pressures 112/87. I have discussed the case with her primary care doctor Dr. Wilkins who has accepted her for admission. - Vital Signs Vital signs: Temp Pulse Resp BP Pulse Ox 98.8 F 154 H 26 H 80/70 L 100 11/28/17 20:57 11/28/17 20:41 11/28/17 23:36 11/28/17 23:36 11/28/17 23:36 - Laboratory Result Diagrams: 11/28/17 20:50 11/28/17 20:50 Laboratory results interpreted by me: 11/28/17 11/28/17 11/28/17 20:50 20:50 20:50 WBC 10.6 H RBC 2.79 L Hgb 11.2 L Hct 33.0 L MCV 118 H MCH 40.3 H RDW 17.5 H Plt Count 83 L Seg Neuts % (Manual) 80 H Band Neutrophils % 7 H Lymphocytes % (Manual) 7 L Abs Neuts (Manual) 9.2 H Sodium 145.7 H Carbon Dioxide 18 L Anion Gap 23 H Est GFR (Non-Af Amer) 51 L Glucose 127 H Lactic Acid Total Bilirubin 2.8 H Direct Bilirubin 2.0 H AST 143 H Alkaline Phosphatase 139 H Lipase 323.8 H 11/28/17 20:50 WBC RBC Hgb Hct MCV MCH RDW Plt Count Seg Neuts % (Manual) Band Neutrophils % Lymphocytes % (Manual) Abs Neuts (Manual) Sodium Carbon Dioxide Anion Gap Est GFR (Non-Af Amer) Glucose Lactic Acid 8.5 H Total Bilirubin Direct Bilirubin AST Alkaline Phosphatase Lipase - Diagnostic Test Radiology reviewed: Reports reviewed - EKG Interpretation by Me Additional EKG results interpreted by me: 11/29/17 00:22 Sinus tachycardia. Rate 147. No ST elevations or depressions. QTC is 482. Critical Care Note - Critical Care Note Total time excluding time spent on procedures (mins): 50 Comments: Critical care time spent obtaining history from patient or surrogate, discussions with consultants, development of treatment plan with patient or surrogate, evaluation of patient's response to treatment, examination of patient , ordering and performing treatments and interventions, ordering and review of laboratory studies, re-evaluation of patient's condition, ordering and review of radiographic studies and review of old charts Discharge - Discharge Clinical Impression: Severe sepsis, Sinus tachycardia Pneumonia Qualifiers: Pneumonia type: due to unspecified organism Laterality: right Lung location: lower lobe of lung Qualified Code(s): J18.1 - Lobar pneumonia, unspecified organism Alcohol intoxication Qualifiers: Complication of substance-induced condition: with unspecified complication Qualified Code(s): F10.929 - Alcohol use, unspecified with intoxication, unspecified Condition: Fair Disposition: ADMITTED INPATIENT Admitting Provider: Kal[facility] Unit Admitted: [facility] Referrals: ABNER WILKINS MD [Primary Care Provider] - Follow up as needed
--- NOTE | 2017-11-28 21:10 | EKG REPORT ---
SEVERITY:- ABNORMAL ECG - SINUS TACHYCARDIA PROBABLE INFERIOR INFARCT, OLD BORDERLINE T ABNORMALITIES, ANT-LAT LEADS LOW VOLTAGE EKG : Confirmed by: Jhonatan French MD 28-Nov-2017 21:09:58
[2017-11-28 21:14] LABS: HEMOGLOBIN 11.2 g/dL (12.0-15.5); MEAN CORPUSCULAR HEMOGLOBIN 40.3 pg (27.0-33.4); MEAN CORPUSCULAR HGB CONC 34.1 g/dL (32.0-36.0); MEAN CORPUSCULAR VOLUME 118 fl (80-97); RED BLOOD COUNT 2.79 10^6/uL (3.72-5.28); RED CELL DISTRIBUTION WIDTH 17.5 % (11.5-14.0); WHITE BLOOD COUNT 10.6 10^3/uL (4.0-10.5)
[2017-11-28 21:17] LABS: PLATELET COUNT 83 10^3/uL (150-450)
[2017-11-28 21:30] LABS: BLOOD UREA NITROGEN 9 mg/dL (7-20); CALCIUM 9.1 mg/dL (8.4-10.2); GLUCOSE 127 mg/dL (75-110); POTASSIUM 3.6 mmol/L (3.6-5.0)
[2017-11-28 21:35] LABS: CARBON DIOXIDE 18 mmol/L (22-30); CHLORIDE 105 mmol/L (98-107); SODIUM 145.7 mmol/L (137-145)
[2017-11-28 21:43] LABS: ANION GAP 23 (5-19)
[2017-11-28 21:44] LABS: NT PRO BNP 562 pg/mL (5-900)
[2017-11-28 21:47] LABS: ABSOLUTE LYMPHOCYTES# (MANUAL) 0.7 10^3/uL (0.5-4.7); ABSOLUTE MONOCYTES # (MANUAL) 0.5 10^3/uL (0.1-1.4); ABSOLUTE NEUTROPHILS# (MANUAL) 9.2 10^3/uL (1.7-8.2); BAND NEUTROPHILS % (MANUAL) 7 % (3-5); BASOPHILS % (MANUAL) 1 % (0-2); EOSINOPHILS % (MANUAL) 0 % (0-6); LYMPHOCYTES % (MANUAL) 7 % (13-45); MONOCYTES % (MANUAL) 5 % (3-13); SEGMENTED NEUTROPHILS % (MAN) 80 % (42-78); TOTAL CELLS COUNTED 100
[2017-11-28 21:48] LABS: TOXIC VACUOLATION PRESENT; TROPONIN I < 0.012 ng/mL
[2017-11-28 21:52] LABS: ANISOCYTOSIS 1+; PLATELET COMMENT DECREASED; POIKILOCYTOSIS 1+; STOMATOCYTES 1+; TARGET CELLS 1+; TEAR DROP CELLS SLIGHT
[2017-11-28 22:01] LABS: ALCOHOL 158 mg/dL (NONE DETECTED)
--- NOTE | 2017-11-28 22:39 | RADIOLOGY REPORT (SQ) ---
EXAM DESCRIPTION: CTA CHEST CLINICAL HISTORY: 52 years Female, sob, eval pe COMPARISON: 09/10/2017. CR 09/16/2017. TECHNIQUE: IV contrast. Multiplanar reformat. This exam was performed according to our departmental dose-optimization program, which includes automated exposure control, adjustment of the mA and/or kV according to patient size and/or use of iterative reconstruction technique. FINDINGS: New moderate airspace opacities in the right lower lobe. Increased opacities of the right upper lobe. Moderate perinephric fat stranding. Small fluid under the right hemidiaphragm. Small pericholecystic fluid. No significant pulmonary embolus. No right ventricular strain. Moderate mediastinal lymphadenopathy. Mild/moderate vertebral wedging at the mid and lower thoracic levels, stable. Inferior neck, axillae, mediastinum, lungs, airway, lymphatics, heart, vasculature, upper abdomen, and musculoskeleton appear otherwise unremarkable. Impression: 1. Worsened airspace opacities. Differential diagnosis includes pneumonia, pulmonary edema, and malignancy. 2. Moderate perinephric fat stranding. Differential diagnosis includes pyelonephritis and chronic medical renal disease.
[2017-11-28] MEDS ORDERED: LEVOFLOXACIN 750 MG/D5W RTU 750 MG/150 ML RTUPB IV ONE (22:42)
[2017-11-28] MEDS ORDERED: THIAMINE HCL 100 MG, FOLIC ACID 1 MG in NORMAL SALINE 250 ML IV ONE (22:44)
[2017-11-28 22:59] LABS: ALANINE AMINOTRANSFERASE 30 U/L (9-52); ALBUMIN 3.7 g/dL (3.5-5.0); ALKALINE PHOSPHATASE 139 U/L (38-126); ASPARTATE AMINO TRANSFERASE 143 U/L (14-36); BILIRUBIN,TOTAL 2.8 mg/dL (0.2-1.3); LIPASE 323.8 U/L (23-300); TOTAL PROTEIN 7.6 g/dL (6.3-8.2)
[2017-11-28] MEDS ORDERED: FOLIC ACID INJ 5 MG/1 ML 10 ML VIAL ONE (23:25)
[2017-11-28] MEDS ORDERED: THIAMINE HCL INJ 200 MG/2 ML VIAL ONE (23:25)
[2017-11-28] MEDS ORDERED: PIPERACILLIN/TAZOBACTAM 3.375 GM VIAL IV ONE (23:45)
[2017-11-29] MEDS ORDERED: NORMAL SALINE 1000 ML 1,000 ML IV ONE (00:20)
[2017-11-29] MEDS ORDERED: VANCOMYCIN HCL INJ 1000 MG VIAL IV ONE (00:20)
[2017-11-29] MEDS ORDERED: ONDANSETRON HCL INJ/PF 4 MG/2 ML SDV ONE (00:56)
--- NOTE | 2017-11-29 01:02 | RADIOLOGY REPORT (SQ) ---
EXAM DESCRIPTION: U/S ABDOMEN LIMITED W/O DOP CLINICAL HISTORY: 52 years Female, gallbladder edema, ab pain Comparison: CT, same day. LIMITATIONS: Bowel gas artifact. FINDINGS: Gallbladder wall thickness is 0.5 cm. Minimal pericholecystic fluid. Trace fluid at the hepatorenal recess. Gallbladder, negative sonographic Hauser's test, liver, a 0.66-cm diameter common bile duct, no intrahepatic ductal dilation, 12-cm right kidney, pancreas, partially obscured aorta, visualized vasculature/abdominal aorta, appear otherwise unremarkable. IMPRESSION: Small nonspecific gallbladder wall thickening/pericholecystic fluid. Else, unremarkable.
[2017-11-29] MEDS ORDERED: IPRATROPIUM/ALBUTEROL 0.5-2.5 MG/3 ML AMPUL NEB PRN (01:28)
[2017-11-29] MEDS ORDERED: CLINDAMYCIN 600 MG/D5W RTU 600 MG/50 ML RTUPB IV ONE (02:00)
[2017-11-29] MEDS ORDERED: LEVOFLOXACIN 750 MG/D5W RTU 750 MG/150 ML RTUPB IV ONE (02:00)
[2017-11-29] MEDS ORDERED: ONDANSETRON HCL INJ/PF 4 MG/2 ML SDV IV ONE (02:05)
[2017-11-29] MEDS: LORAZEPAM INJ 2 MG/1 ML VIAL IV SCH ×3 (02:40→19:22)
[2017-11-29 03:44] LABS: APPEARANCE,URINE CLEAR; BILIRUBIN,URINE NEGATIVE (NEGATIVE); COLOR,URINE YELLOW; GLUCOSE, URINE NEGATIVE (NEGATIVE); KETONES,URINE NEGATIVE (NEGATIVE); LEUKOCYTE ESTERASE,URINE NEGATIVE (NEGATIVE); NITRITE,URINE NEGATIVE (NEGATIVE); PROTEIN,URINE NEGATIVE (NEGATIVE); URINE SPECIFIC GRAVITY 1.053; UROBILINOGEN,URINE NEGATIVE mg/dL (<2.0)
[2017-11-29 03:47] LABS: URINE AMPHETAMINES SCREEN NEGATIVE; URINE BARBITURATES SCREEN NEGATIVE; URINE BENZODIAZEPINES SCREEN NEGATIVE; URINE COCAINE SCREEN UNCONFIRMED POSITIVE; URINE MARIJUANA (THC) SCREEN NEGATIVE; URINE METHADONE SCREEN NEGATIVE; URINE PHENCYCLIDINE SCREEN NEGATIVE
[2017-11-29 04:29] LABS: CREATINE KINASE MB 1.09 ng/mL (<4.55); NT PRO BNP 1040 pg/mL (5-900)
[2017-11-29 04:32] LABS: TROPONIN I < 0.012 ng/mL
[2017-11-29] MEDS: NORMAL SALINE 1000 ML 1,000 ML IV PRN (04:59)
[2017-11-29] MEDS ORDERED: CEFEPIME 2 GM/D5W RTU 2 GM/50 ML RTUPB IV SCH (06:00)
[2017-11-29] MEDS ORDERED: CEFEPIME 1 GM/D5W RTU 2 GM/100 ML RTUPB IV ONE (06:19)
[2017-11-29] MEDS ORDERED: PROPOFOL 100 ML IV ONE (09:28)
[2017-11-29] MEDS ORDERED: KETAMINE HCL INJ 500 MG/10 ML VIAL ONE (09:36)
[2017-11-29 09:51] LABS: ARTERIAL BLOOD BASE EXCESS -8.9 mmol/L; ARTERIAL BLOOD H2CO3 1.02 mmol/L (1.05-1.35); ARTERIAL BLOOD HCO3 16.5 mmol/L (20-26); ARTERIAL BLOOD O2 SATURATION 97.9 % (94-98); ARTERIAL BLOOD PCO2 33.9 mmHg (35-45); ARTERIAL BLOOD PH 7.31 (7.35-7.45); ARTERIAL BLOOD PO2 116.1 mmHg (80-100); ARTERIAL BLOOD TOTAL CO2 17.6 mmol/L (21-25)
[2017-11-29 09:54] LABS: ARTERIAL BLOOD FIO2 15L
[2017-11-29] MEDS ORDERED: THIAMINE HCL 100 MG, FOLIC ACID 1 MG in NORMAL SALINE 250 ML IV SCH ×2 (10:00→18:00)
[2017-11-29] MEDS ORDERED: LORAZEPAM INJ 2 MG/1 ML VIAL ONE (10:20)
[2017-11-29] MEDS ORDERED: LEVALBUTEROL HCL NEB 1.25 MG/3 ML AMPUL NEB PRN (10:38)
[2017-11-29] MEDS ORDERED: NORMAL SALINE INJ/PF 0.9% 10 ML SDV IV PRN (10:41)
--- NOTE | 2017-11-29 10:41 | RADIOLOGY REPORT (SQ) ---
EXAM DESCRIPTION: CHEST SINGLE VIEW COMPLETED DATE/TIME: 11/29/2017 10:31 am REASON FOR STUDY: ET TUBE PLACEMENT COMPARISON: CT 11/28/2017 chest x-ray 09/16/2017 EXAM PARAMETERS: NUMBER OF VIEWS: One view. TECHNIQUE: Single frontal radiographic view of the chest acquired. RADIATION DOSE: NA LIMITATIONS: None. FINDINGS: LUNGS AND PLEURA: There is increased opacification in the right lung. There is reduced vo lume on the right. A right pleural effusion cannot be excluded. MEDIASTINUM AND HILAR STRUCTURES: No masses. Contour normal. HEART AND VASCULAR STRUCTURES: Heart size is indeterminate. BONES: No acute findings. HARDWARE: An endotracheal tube is present with the tip of the tube 3 cm above the jana. A right in ternal jugular catheter has its tip in the superior vena cava. An NG tube extends to the stomach. OTHER: No other significant finding. IMPRESSION: 1. Increased opacification in the right lung suggesting airspace disease and some degre e of atelectasis. A small pleural effusion is suggested. 2. Tube and catheter placement as described. TECHNICAL DOCUMENTATION: JOB ID: [id number] [employer]- All Rights Reserved Reading location - IP/workstation name: [email or web address]
--- NOTE | 2017-11-29 10:53 | RADIOLOGY REPORT (SQ) ---
EXAM DESCRIPTION: KUB/ABDOMEN (SINGLE VIEW) COMPLETED DATE/TIME: 11/29/2017 10:31 am REASON FOR STUDY: NGT PLACEMENT COMPARISON: None. NUMBER OF VIEWS: One view. TECHNIQUE: Supine radiographic image of the abdomen acquired. LIMITATIONS: None. FINDINGS: BOWEL GAS PATTERN: Normal bowel gas pattern. No dilated loops. CALCIFICATIONS: No suspicious calcifications. SOFT TISSUES: No gross mass or suggestion of organomegaly. HARDWARE: The NG tube extends to the body of the stomach BONES: No acute fracture. No worrisome bone lesions. OTHER: No other significant finding. IMPRESSION: NG tube placement as described. TECHNICAL DOCUMENTATION: JOB ID: [id number] [email or web address]- All Rights Reserved Reading location - IP/workstation name: [email or web address]
[2017-11-29 11:01] LABS: ALANINE AMINOTRANSFERASE 27 U/L (9-52); ALBUMIN 2.6 g/dL (3.5-5.0); ALKALINE PHOSPHATASE 52 U/L (38-126); ANION GAP 17 (5-19); ASPARTATE AMINO TRANSFERASE 92 U/L (14-36); BILIRUBIN,DIRECT 2.4 mg/dL (0.0-0.4); BLOOD UREA NITROGEN 9 mg/dL (7-20); CALCIUM 7.6 mg/dL (8.4-10.2); CARBON DIOXIDE 17 mmol/L (22-30); CHLORIDE 112 mmol/L (98-107); CREATINE KINASE 65 U/L (30-135); GLUCOSE 76 mg/dL (75-110); PHOSPHORUS 4.6 mg/dL (2.5-4.5); POTASSIUM 3.3 mmol/L (3.6-5.0); TOTAL PROTEIN 5.9 g/dL (6.3-8.2)
[2017-11-29] MEDS ORDERED: VANCOMYCIN HCL 0 MG in DEXTROSE 5%-WATER 250 ML IV NR (11:03)
[2017-11-29 11:07] LABS: HEMATOCRIT 26.2 % (36.0-47.0); MEAN CORPUSCULAR HGB CONC 34.3 g/dL (32.0-36.0); MEAN CORPUSCULAR VOLUME 120 fl (80-97); RED BLOOD COUNT 2.19 10^6/uL (3.72-5.28); RED CELL DISTRIBUTION WIDTH 17.3 % (11.5-14.0); WHITE BLOOD COUNT 7.5 10^3/uL (4.0-10.5)
--- NOTE | 2017-11-29 11:07 | PDOC CONSULTATION ---
Consultation Consult Date: 11/29/17 Attending physician:: ABNER WILKINS Consult reason:: acute resp failure History of Present Illness Admission Date/PCP: 11/29/17 01:39 ABNER WILKINS MD History of Present Illness: MAAME SAENZ is a 52 year old female Presented to the emergency room is increasing shortness of breath and confusion history of EtOH abuse alcohol abuse the time of presentation she was quite tremulous she was placed on the floor but subsequently had a easing increasing tachypnea with reported respiratory rates in the high 50s she subsequently was brought to the ICU where she was intubated per anesthesiology is currently intubated and sedated has long history of associated before alcohol abuse as well as tobacco abuse. Past Medical History Pulmonary Medical History: Reports: Chronic Obstructive Pulmonary Disease (COPD) Denies: Tuberculosis Malignancy Medical History: Reports: Lymphoma Psychiatric Medical History: Denies: Depression Hematology: Reports: Anemia Past Surgical History Past Surgical History: Reports: Section, Hysterectomy, Orthopedic Surgery - Left hip replacement, right knee, Tonsillectomy, Tubal Ligation Denies: Pacemaker Social History Information Source: [facility] Records Lives with: Family Smoking Status: Current Every Day Smoker Frequency of Alcohol Use: Occasional Hx Recreational Drug Use: No Drugs: None Hx Prescription Drug Abuse: No Family History Parental Family History Reviewed: No Children Family History Reviewed: No Sibling(s) Family History Reviewed.: No Medication/Allergy Home Medications: Thiamine HCl [Thiamine 100 mg Tablet] 100 mg PO DAILY #30 tablet 09/20/17 Megestrol Acetate 20 ml PO DAILY 11/29/17 Omeprazole 20 mg PO DAILY 11/29/17 Allergies/Adverse Reactions: No Known Allergies Allergy (Verified 04/25/17 18:37) Review of Systems ROS unobtainable: Due to endotracheal tube, Due to mental status Physical Exam Vital Signs: Temp Pulse Resp BP Pulse Ox 98.7 F 141 H 12 129/78 H 94 11/29/17 06:32 11/29/17 08:00 11/29/17 08:00 11/29/17 07:00 11/29/17 09:52 General appearance: PRESENT: disheveled, severe distress, well-developed, well- nourished. ABSENT: cooperative Head exam: PRESENT: atraumatic, normocephalic Eye exam: PRESENT: conjunctiva pale. ABSENT: nystagmus, periorbital swelling, scleral icterus Mouth exam: PRESENT: dry mucosa, neck supple, tongue midline Teeth exam: PRESENT: other - Patient is being intubated Neck exam: ABSENT: carotid bruit, JVD, lymphadenopathy, thyromegaly, tracheal deviation, tracheostomy Respiratory exam: PRESENT: decreased breath sounds, prolonged expiratory phas, rales, rhonchi, tachypnea, wheezes. ABSENT: stridor Cardiovascular exam: PRESENT: RRR, +S1, tachycardia Pulses: PRESENT: normal radial pulses GI/Abdominal exam: PRESENT: diminished bowel sounds, soft Extremities exam: ABSENT: calf tenderness, clubbing, joint swelling Musculoskeletal exam: ABSENT: ambulatory, dislocation Neurological exam: ABSENT: awake, oriented to person Skin exam: PRESENT: dry, other - cool damp Results Laboratory Results: 11/29/17 11/29/17 11/29/17 02:19 03:51 09:25 Carbonic Acid 1.02 L HCO3/H2CO3 Ratio 16:1 ABG pH 7.31 L ABG pCO2 33.9 L ABG pO2 116.1 H ABG HCO3 16.5 L ABG O2 Saturation 97.9 ABG Base Excess -8.9 FiO2 15L Lactic Acid 7.8 H Urine Color YELLOW Urine Appearance CLEAR Urine pH 5.0 Ur Specific [place] 1.053 Urine Protein NEGATIVE Urine Glucose (UA) NEGATIVE Urine Ketones NEGATIVE Urine Blood SMALL H Urine Nitrite NEGATIVE Ur Leukocyte Esterase NEGATIVE Urine WBC (Auto) 3 Urine RBC (Auto) 2 11/29/17 11/29/17 03:51 03:51 Creatine Kinase 69 CK-MB (CK-2) 1.09 Troponin I < 0.012 NT-Pro-B Natriuret Pep 1040 H Impressions: Chest/Abdomen CTA 11/28/17 21:03 IMPRESSION: Multiple areas of new consolidation in the posterior aspect of the right lung. New small right pleural effusion. New Small amount of perihepatic ascites and edematous appearance of the gallbladder. No emboli visualized in the main pulmonary arteries or the segmental branches. Abdomen Ultrasound 11/28/17 22:42 IMPRESSION: Small nonspecific gallbladder wall thickening/pericholecystic fluid. Else, unremarkable. Assessment & Plan - Diagnosis (1) Severe sepsis Is this a current diagnosis for this admission?: Yes (2) Acute hypoxemic respiratory failure Is this a current diagnosis for this admission?: Yes Plan: fio2=80% (3) Alcohol withdrawal Qualifiers: Complication of substance-induced condition: with delirium Qualified Code(s ): F10.231 - Alcohol dependence with withdrawal delirium Is this a current diagnosis for this admission?: Yes (4) Chronic obstructive pulmonary disease (COPD) Qualifiers: COPD type: unspecified COPD Qualified Code(s): J44.9 - Chronic obstructive pulmonary disease, unspecified Is this a current diagnosis for this admission?: Yes Plan: duoneb prn xopenex - Time Total Critical Time (Minutes): 70
--- NOTE | 2017-11-29 11:09 | Operative Report ---
Bedside Procedure - History of Present Illness History of Present Illness: MAAME SAENZ is a 52 year old female Presented to the emergency room is increasing shortness of breath and confusion history of EtOH abuse alcohol abuse the time of presentation she was quite tremulous she was placed on the floor but subsequently had a easing increasing tachypnea with reported respiratory rates in the high 50s she subsequently was brought to the ICU where she was intubated per anesthesiology is currently intubated and sedated has long history of associated before alcohol abuse as well as tobacco abuse. Indication for Procedure: only acess r lower ext IO Date: 11/29/17 - Central Line Right Internal jugular Time completed: 10:25 Central line pre-insertion: Sterile PPE donned, Betadine prep applied, Chloraprep applied, Sterile drapes applied Central line lumen type: Triple Anesthetic type: 1% Lidocaine Ultrasound guided: Yes Line secured with sutures: Yes Central line post-insertion: Blood return from lumens, Biopatch applied, Sutured , Sterile dressing applied, Position confirmed w/ CXR, Other Complications: No
[2017-11-29 11:13] LABS: CREATINE KINASE MB 1.51 ng/mL (<4.55); TROPONIN I < 0.012 ng/mL
[2017-11-29] MEDS ORDERED: MAGNESIUM SULFATE/D5W 1 GM/100 ML RTUPB IV ONE (11:18)
[2017-11-29 11:19] LABS: ARTERIAL BLOOD BASE EXCESS -10.4 mmol/L; ARTERIAL BLOOD H2CO3 1.22 mmol/L (1.05-1.35); ARTERIAL BLOOD HCO3 16.4 mmol/L (20-26); ARTERIAL BLOOD O2 SATURATION 96.5 % (94-98); ARTERIAL BLOOD PCO2 40.4 mmHg (35-45); ARTERIAL BLOOD PH 7.23 (7.35-7.45); ARTERIAL BLOOD PO2 100.9 mmHg (80-100); ARTERIAL BLOOD TOTAL CO2 17.7 mmol/L (21-25)
[2017-11-29 11:20] LABS: ARTERIAL BLOOD FIO2 80%
--- NOTE | 2017-11-29 11:25 | PDOC CONSULTATION ---
Consultation Consult Date: 11/29/17 Consult reason:: Central line; respiratory distress; mass left pretibial area History of Present Illness Admission Date/PCP: 11/29/17 01:39 ABNER WILKINS MD History of Present Illness: MAAME SAENZ is a 52 year old female An approximately 10:00 this morning is asked to see Ms. Carranza on the floor for central line placement. Patient was developing progressive respiratory distress, combativeness, felt secondary to alcohol withdrawal. We started adding materials together for central line placement however the decision was aborted due to the patient's deteriorating clinical condition. She was immediately transferred to the intensive care unit where she underwent oral tracheal intubation. The line was placed in the intensive care unit by Dr. Villalpando. Patient appeared to stabilize gently. An area of subcutaneous tissue swelling left anterior lateral pretibial region was brought to the attention of the surgeon. Past Medical History Pulmonary Medical History: Reports: Chronic Obstructive Pulmonary Disease (COPD) Denies: Tuberculosis Malignancy Medical History: Reports: Lymphoma Psychiatric Medical History: Denies: Depression Hematology: Reports: Anemia Past Surgical History Past Surgical History: Reports: Section, Hysterectomy, Orthopedic Surgery - Left hip replacement, right knee, Tonsillectomy, Tubal Ligation Denies: Pacemaker Social History Lives with: Family Smoking Status: Current Every Day Smoker Frequency of Alcohol Use: Occasional Hx Recreational Drug Use: No Drugs: None Hx Prescription Drug Abuse: No Family History Family History: Reviewed & Not Pertinent Parental Family History Reviewed: No Children Family History Reviewed: Unknown Sibling(s) Family History Reviewed.: Unknown Medication/Allergy Home Medications: Thiamine HCl [Thiamine 100 mg Tablet] 100 mg PO DAILY #30 tablet 09/20/17 Megestrol Acetate 20 ml PO DAILY 11/29/17 Omeprazole 20 mg PO DAILY 11/29/17 Allergies/Adverse Reactions: No Known Allergies Allergy (Verified 04/25/17 18:37) Review of Systems ROS unobtainable: Due to mental status, Other - Patient is intubated. Physical Exam Vital Signs: Temp Pulse Resp BP Pulse Ox 98.7 F 141 H 12 97/62 L 98 11/29/17 06:32 11/29/17 08:00 11/29/17 11:00 11/29/17 10:58 11/29/17 11:00 General appearance: PRESENT: other - Intubated with support lines in place. Respiratory exam: PRESENT: other - Rhonchi right greater than left GI/Abdominal exam: PRESENT: other - Soft nontender no peritoneal signs Extremities exam: PRESENT: other - Left lower extremity examined. Bony mass versus foreign body subcutaneous tissue lateral left lower extremity adjacent to head of fibula. Further distally left lower extremity pretibial region soft tissue fullness nontender no erythema no foul smell or drainage. Appears to have an overlying vertical scar. Results Laboratory Results: 11/29/17 10:30 11/29/17 11/29/17 11/29/17 02:19 03:51 09:25 Seg Neutrophils % Lymphocytes % Monocytes % Eosinophils % Basophils % Absolute Neutrophils Absolute Lymphocytes Absolute Monocytes Absolute Eosinophils Absolute Basophils Carbonic Acid 1.02 L HCO3/H2CO3 Ratio 16:1 ABG pH 7.31 L ABG pCO2 33.9 L ABG pO2 116.1 H ABG HCO3 16.5 L ABG O2 Saturation 97.9 ABG Base Excess -8.9 FiO2 15L Sodium Potassium Chloride Carbon Dioxide Anion Gap BUN Creatinine Est GFR ( Amer) Est GFR (Non-Af Amer) Glucose Lactic Acid 7.8 H Calcium Phosphorus Magnesium Total Bilirubin AST ALT Alkaline Phosphatase Total Protein Albumin Urine Color YELLOW Urine Appearance CLEAR Urine pH 5.0 Ur Specific [place] 1.053 Urine Protein NEGATIVE Urine Glucose (UA) NEGATIVE Urine Ketones NEGATIVE Urine Blood SMALL H Urine Nitrite NEGATIVE Ur Leukocyte Esterase NEGATIVE Urine WBC (Auto) 3 Urine RBC (Auto) 2 11/29/17 11/29/17 10:30 10:30 Seg Neutrophils % Not Reportable Lymphocytes % Not Reportable Monocytes % Not Reportable Eosinophils % Not Reportable Basophils % Not Reportable Absolute Neutrophils Not Reportable Absolute Lymphocytes Not Reportable Absolute Monocytes Not Reportable Absolute Eosinophils Not Reportable Absolute Basophils Not Reportable Carbonic Acid HCO3/H2CO3 Ratio ABG pH ABG pCO2 ABG pO2 ABG HCO3 ABG O2 Saturation ABG Base Excess FiO2 Sodium 146.0 H Potassium 3.3 L Chloride 112 H Carbon Dioxide 17 L Anion Gap 17 BUN 9 Creatinine 0.78 Est GFR ( Amer) > 60 Est GFR (Non-Af Amer) > 60 Glucose 76 Lactic Acid Calcium 7.6 L Phosphorus 4.6 H Magnesium 0.4 L* Total Bilirubin 3.0 H AST 92 H ALT 27 Alkaline Phosphatase 52 Total Protein 5.9 L Albumin 2.6 L Urine Color Urine Appearance Urine pH Ur Specific [place] Urine Protein Urine Glucose (UA) Urine Ketones Urine Blood Urine Nitrite Ur Leukocyte Esterase Urine WBC (Auto) Urine RBC (Auto) 11/29/17 11/29/17 11/29/17 03:51 03:51 10:30 Creatine Kinase 69 65 CK-MB (CK-2) 1.09 Troponin I < 0.012 NT-Pro-B Natriuret Pep 1040 H 11/29/17 11/29/17 10:30 10:30 Creatine Kinase Cancelled CK-MB (CK-2) 1.51 Troponin I < 0.012 NT-Pro-B Natriuret Pep Impressions: Chest/Abdomen CTA 11/28/17 21:03 IMPRESSION: Multiple areas of new consolidation in the posterior aspect of the right lung. New small right pleural effusion. New Small amount of perihepatic ascites and edematous appearance of the gallbladder. No emboli visualized in the main pulmonary arteries or the segmental branches. Abdomen Ultrasound 11/28/17 22:42 IMPRESSION: Small nonspecific gallbladder wall thickening/pericholecystic fluid. Else, unremarkable. Chest X-Ray 11/29/17 00:00 IMPRESSION: 1. Increased opacification in the right lung suggesting airspace disease and some degree of atelectasis. A small pleural effusion is suggested. 2. Tube and catheter placement as described. KUB X-Ray 11/29/17 00:00 IMPRESSION: NG tube placement as described. Assessment & Plan - Diagnosis (1) Severe sepsis Is this a current diagnosis for this admission?: Yes Plan: With acute respiratory deterioration, now intubated in the intensive care unit with central line placement. Recommendations 1. I perform focused ultrasound of the patient's left pretibial region; the soft tissue density approximately 2 cm in diameter appears to be pathologist assistant with hypodense subcutaneous fat; there is no apparent fluid. I also scanned the left evaristo-fibular region towards the head and is a consistent with heterotopic bone; I cannot rule out foreign body. 2. I suggested to Drs. Villalpando a 2 view x-ray of the fibula head be obtained. 3. No indication for surgical intervention at this time.
[2017-11-29] MEDS ORDERED: SUCCINYLCHOLINE CHLORIDE INJ 200 MG/10 ML VIAL ONE (11:27)
[2017-11-29 11:37] LABS: ABSOLUTE LYMPHOCYTES# (MANUAL) 0.7 10^3/uL (0.5-4.7); ABSOLUTE MONOCYTES # (MANUAL) 0.2 10^3/uL (0.1-1.4); ABSOLUTE NEUTROPHILS# (MANUAL) 6.7 10^3/uL (1.7-8.2); BAND NEUTROPHILS % (MANUAL) 10 % (3-5); BASOPHILS % (MANUAL) 0 % (0-2); EOSINOPHILS % (MANUAL) 0 % (0-6); LYMPHOCYTES % (MANUAL) 9 % (13-45); METAMYELOCYTES % (MANUAL) 2 % (0); MONOCYTES % (MANUAL) 2 % (3-13); SEGMENTED NEUTROPHILS % (MAN) 77 % (42-78); TOTAL CELLS COUNTED 100
[2017-11-29 11:41] LABS: ANISOCYTOSIS 2+; POIKILOCYTOSIS 1+
[2017-11-29 11:42] LABS: PLATELET COMMENT DECREASED; POLYCHROMASIA SLIGHT; TARGET CELLS 1+; TEAR DROP CELLS SLIGHT
[2017-11-29 11:43] LABS: PLATELET COUNT 65 10^3/uL (150-450)
[2017-11-29] MEDS ORDERED: RINGERS SOLUTION,LACTATED 1,000 ML IV ONE (11:45)
--- NOTE | 2017-11-29 12:07 | RADIOLOGY REPORT (SQ) ---
EXAM DESCRIPTION: KNEE LEFT 2 VIEWS COMPLETED DATE/TIME: 11/29/2017 11:30 am REASON FOR STUDY: foreign body COMPARISON: 04/16/2016 NUMBER OF VIEWS: Two views. TECHNIQUE: AP and lateral radiographic images acquired of the left knee. LIMITATIONS: None. FINDINGS: MINERALIZATION: Osteopenia. BONES: No acute fracture or dislocation. There is extensive hardware in the proximal tibia. JOINT: No effusion. SOFT TISSUES: No soft tissue swelling. No radio-opaque foreign body. OTHER: No other significant finding. IMPRESSION: Old fractures of the proximal tibia and fibula with internal fixation of the tibial frac ture. There is no acute abnormality. TECHNICAL DOCUMENTATION: JOB ID: [id number] [employer]- All Rights Reserved Reading location - IP/workstation name: [email or web address]
[2017-11-29] MEDS: MAGNESIUM SULFATE/D5W 1 GM/100 ML RTUPB IV SCH ×6 (12:08→21:57)
[2017-11-29] MEDS: PROPOFOL 100 ML IV PRN ×2 (12:08→15:04)
--- NOTE | 2017-11-29 12:08 | RADIOLOGY REPORT (SQ) ---
EXAM DESCRIPTION: TIBIA FIBULA LEFT COMPLETED DATE/TIME: 11/29/2017 11:30 am REASON FOR STUDY: Osteomyelitis COMPARISON: 09/27/2014 NUMBER OF VIEWS: Two views. TECHNIQUE: Two radiographic images acquired of the left tibia and fibula to include the knee and ank le in at least one projection. LIMITATIONS: None. FINDINGS: MINERALIZATION: Osteopenia. BONES: No acute fracture or dislocation. There is a long plate on the proximal tibia secured by mult iple screws. SOFT TISSUES: No obvious swelling or foreign body. OTHER: No other significant finding. IMPRESSION: No acute finding is present in the left tibia or fibula. TECHNICAL DOCUMENTATION: JOB ID: [id number] [email or web address]- All Rights Reserved Reading location - IP/workstation name: [email or web address]
[2017-11-29] MEDS ORDERED: VASOPRESSIN INJ 20 UNIT/1 ML VIAL ONE (12:11)
[2017-11-29] MEDS: CLINDAMYCIN 600 MG/D5W RTU 600 MG/50 ML RTUPB IV SCH ×2 (12:47→19:20)
[2017-11-29] MEDS: LORAZEPAM 24 MG/ D5W 240 ML IV PRN ×3 (12:48→20:54)
[2017-11-29] MEDS: ENOXAPARIN SODIUM INJ 40 MG/0.4 ML DISP.SYRIN SUBCUT SCH (12:48)
[2017-11-29] MEDS ORDERED: PHENYLEPHRINE HCL INJ/PF 10 MG/1 ML SDV ONE (13:00)
[2017-11-29] MEDS: IPRATROPIUM/ALBUTEROL 0.5-2.5 MG/3 ML AMPUL NEB SCH ×2 (13:36→19:48)
--- NOTE | 2017-11-29 13:51 | RADIOLOGY REPORT (SQ) ---
EXAM DESCRIPTION: CT HEAD WITHOUT COMPLETED DATE/TIME: 11/29/2017 1:39 pm REASON FOR STUDY: obtunded thrombocytopenic COMPARISON: CT brain 09/28/2014 TECHNIQUE: Axial images acquired through the brain without intravenous contrast. Images reviewed wi th bone, brain and subdural windows. Additional sagittal and coronal reconstructions were generated. Images stored on PACS. All CT scanners at this facility use dose modulation, iterative reconstruction, and/or weight based d osing when appropriate to reduce radiation dose to as low as reasonably achievable (ALARA). [facility]: Dose Right [facility]: CareDose [facility]: Dose Right [facility]: Teradose 4D [facility]: [employer] RADIATION DOSE: CT Rad equipment meets quality standard of care and radiation dose reduction techniq ues were employed. CTDIvol: 48.6 mGy. DLP: 953 mGy-cm. mGy. LIMITATIONS: None. FINDINGS: VENTRICLES: Normal size and contour. CEREBRUM: No masses. No hemorrhage. No midline shift. No evidence for acute infarction. Normal gra y/white matter differentiation. No areas of low density in the white matter. CEREBELLUM: No masses. No hemorrhage. Benign calcified choroid plexus 4th ventricle. No evidence f or acute infarction. EXTRAAXIAL SPACES: No fluid collections. No masses. ORBITS AND GLOBE: No intra- or extraconal masses. Normal contour of globe without masses. CALVARIUM: No fracture. PARANASAL SINUSES: Air fluid left maxillary sinus from sinusitis. SOFT TISSUES: No mass or hematoma. OTHER: No other significant finding. IMPRESSION: No acute intracranial changes Air-fluid level left maxillary sinus from sinusitis EVIDENCE OF ACUTE STROKE: NO. COMMENT: Quality ID # [id number]: Final reports with documentation of one or more dose reduction techniques (e.g., Automated exposure control, adjustment of the mA and/or kV according to patient size, use of iterative reconstruction technique) TECHNICAL DOCUMENTATION: JOB ID: [id number] [employer]- All Rights Reserved Reading location - IP/workstation name: [email or web address]
[2017-11-29] MEDS: VANCOMYCIN HCL 1,500 MG in DEXTROSE 5%-WATER 250 ML IV SCH (15:00)
[2017-11-29] MEDS: DEXTROSE 5%-WATER 250 ML with PHENYLEPHRINE HCL 40 MG IV PRN ×2 (15:02)
[2017-11-29] MEDS: ALBUMIN HUMAN 50 ML IV SCH ×2 (15:08→16:20)
--- NOTE | 2017-11-29 15:27 | XCELERA REPORT ---
[address] [address] Transthoracic Echocardiogram Report Name: MAAME SAENZ Age: 52 yrs Gender: Female : 1965 Patient Status: Inpatient Patient Location: ICU^609^A Study Date: 11/29/2017 01:58 PM Height: 69 in Weight: 150 lb BSA: 1.8 m2 Procedure: A complete two-dimensional transthoracic echocardiogram was performed (2D, M-mode, spectral and color flow Doppler). The study was technically difficult with many images being suboptimal in quality. Reason For Study: SEPTIC SHOCK Ordering Physician: MATILDE WHITE Performed By: Kody Lennon Interpretation Summary The left ventricular ejection fraction is within normal limits. Borderline right ventricular enlargement. There is a mild amount of mitral regurgitation There is no mitral valve stenosis. No aortic regurgitation is present. There is no aortic valve stenosis There is a trace or physiologic amount of tricuspid regurgitation Tricuspid regurgitation jet envelope not well defined to measure RV systolic pressure accurately. Minimal pericardial effusion. MMode/2D Measurements & Calculations RVDd: 2.4 cm LVIDd: 3.4 cm FS: 28.2 % Ao root diam: 1.8 cm IVSd: 0.73 cm LVIDs: 2.5 cm EDV(Teich): 48.2 ml LVPWd: 0.75 cm ESV(Teich): 21.4 ml Ao root area: 2.4 cm2 EF(Teich): 55.6 % Doppler Measurements & Calculations MV E max juanito: MV dec slope: Ao V2 max: LV V1 max P.5 cm/sec 97.2 cm/sec 2.3 mmHg MV A max juanito: 702.3 cm/sec2 Ao max PG: LV V1 max: 0.99 cm/sec MV dec time: 0.13 sec3.8 mmHg 76.6 cm/sec MV E/A: 95.2 PA V2 max: TR max juanito: 77.1 cm/sec 271.4 cm/sec PA max P.4 mmHgTR max P.5 mmHg Left Ventricle The left ventricle is grossly normal size. There is normal left ventricular wall thickness. The left ventricular ejection fraction is within normal limits. LV diastolic function could not be adequately assessed. Wall motion cannot be accurately commented on, but no definite regional wall motion abnormalities noted. Right Ventricle Borderline right ventricular enlargement. There is normal right ventricular wall thickness. The right ventricular systolic function is normal. Atria The right atrium is normal in size. The left atrial size is normal. Interarterial septum not well visualized and not well dopplered. Cannot comment on ASD/PFO presence. Mitral Valve The mitral valve is grossly normal. There is no mitral valve stenosis. There is a mild amount of mitral regurgitation. Aortic Valve The aortic valve opens well. There is no aortic valve stenosis. No aortic regurgitation is present. Tricuspid Valve The tricuspid valve is not well visualized, but is grossly normal. There is no tricuspid stenosis. There is a trace or physiologic amount of tricuspid regurgitation. Tricuspid regurgitation jet envelope not well defined to measure RV systolic pressure accurately. Pulmonic Valve The pulmonic valve is not well visualized. Great Vessels The aortic root is not well visualized but is probably normal size. The inferior vena cava appeared dilated and decreased < 50% with respiration (RAP 15-20 mmHg). Effusions Minimal pericardial effusion. : MATILDE WHITE > Martha Fletcher
[2017-11-29 15:55] LABS: ARTERIAL BLOOD BASE EXCESS -9.6 mmol/L; ARTERIAL BLOOD FIO2 60%; ARTERIAL BLOOD H2CO3 0.71 mmol/L (1.05-1.35); ARTERIAL BLOOD O2 SATURATION 96.5 % (94-98); ARTERIAL BLOOD PCO2 23.7 mmHg (35-45); ARTERIAL BLOOD PH 7.39 (7.35-7.45); ARTERIAL BLOOD PO2 84.1 mmHg (80-100); ARTERIAL BLOOD TOTAL CO2 14.8 mmol/L (21-25)
[2017-11-29 15:56] LABS: FIBRINOGEN 246 mg/dL (209-497); INTERNATIONAL RATION (INR) 1.59; PARTIAL THROMBOPLASTIN TIME 42.3 SEC (23.5-35.8); PROTHROMBIN TIME 19.7 SEC (11.4-15.4)
[2017-11-29 16:20] LABS: D-DIMER 7.07 ug/mL (0.00-0.50)
[2017-11-29] MEDS ORDERED: FUROSEMIDE INJ/PF 20 MG/2 ML SDV ONE (16:20)
[2017-11-29] MEDS ORDERED: ROCURONIUM BROMIDE INJ 50 MG/5 ML VIAL IV ONE (16:25)
[2017-11-29] MEDS ORDERED: NORMAL SALINE 1000 ML 1,000 ML with POTASSIUM CHLORIDE 20 MEQ, MAGNESIUM SULFATE 8 MEQ,... IV SCH ×6 (18:00)
[2017-11-29 18:07] LABS: ALANINE AMINOTRANSFERASE 22 U/L (9-52); ALKALINE PHOSPHATASE 45 U/L (38-126); ANION GAP 17 (5-19); ASPARTATE AMINO TRANSFERASE 85 U/L (14-36); BILIRUBIN,DIRECT 2.8 mg/dL (0.0-0.4); BILIRUBIN,TOTAL 3.4 mg/dL (0.2-1.3); BLOOD UREA NITROGEN 8 mg/dL (7-20); CARBON DIOXIDE 16 mmol/L (22-30); CHLORIDE 105 mmol/L (98-107); GLUCOSE 143 mg/dL (75-110); SODIUM 138.2 mmol/L (137-145)
[2017-11-29 18:16] LABS: POTASSIUM 2.9 mmol/L (3.6-5.0)
[2017-11-29] MEDS ORDERED: PANTOPRAZOLE SODIUM 40 MG VIAL IV ONE (18:30)
[2017-11-29] MEDS: NORMAL SALINE 1000 ML 1,000 ML with MAGNESIUM SULFATE 8 MEQ, THIAMINE HCL 100 MG, MVI, ... IV SCH ×5 (19:21)
[2017-11-29] MEDS: POTASSIUM CHLORIDE 20 MEQ/15 ML UDCUP NG SCH ×2 (19:55→21:58)
--- NOTE | 2017-11-29 20:18 | PDOC H&P ---
History of Present Illness Admission Date/PCP: 11/29/17 01:39 ABNER WILKINS MD History of Present Illness: MAAME SAENZ is a 52 year old female She has a history of alcohol dependence , COPD, non-Hodgkin's lymphoma in remission. She came to emergency room for evaluation of cough, shortness of breath and generalized weakness in the emergency room she was evaluated she was found to be acutely ill ,tremulous, history taking was limited. She was admitted in this hospital on 09/10/2017 and she was discharged on 09/20/2017 when she had acute hypoxemic respiratory failure due to lobar pneumonia complicated with alcohol withdrawal syndrome. CTA chest was done in the emergency room it showed new moderate airspace opacities in the right lower lobe, increased opacity in the right upper lobe there was no pulmonary embolus she was acutely ill ,in emergency room the blood pressure was low, she was also found to have elevated blood alcohol level above legal limits and the urine drug screen was positive for cocaine. The respiration was supported initially with noninvasive positive pressure ventilation BiPAP she was stabilized and she was admitted in step down units. She decompensated in intermediate care unit, she was transferred to ICU she was intubated on mechanical ventilation. She also started on vasopressor with Levophed and vasopressin Past Medical History Pulmonary Medical History: Reports: Chronic Obstructive Pulmonary Disease (COPD) Denies: Tuberculosis Malignancy Medical History: Reports: Lymphoma Hematology: Reports: Anemia Past Surgical History Past Surgical History: Reports: Section, Hysterectomy, Orthopedic Surgery - Left hip replacement, right knee, Tonsillectomy, Tubal Ligation Social History Lives with: Family Smoking Status: Current Every Day Smoker Frequency of Alcohol Use: Heavy Hx Recreational Drug Use: No Drugs: None Hx Prescription Drug Abuse: No - Advance Directive Resuscitation Status: Full Code Family History Family History: Reviewed & Not Pertinent Parental Family History Reviewed: Yes Children Family History Reviewed: Yes Sibling(s) Family History Reviewed.: Yes Medication/Allergy Home Medications: Thiamine HCl [Thiamine 100 mg Tablet] 100 mg PO DAILY #30 tablet 09/20/17 Megestrol Acetate 20 ml PO DAILY 11/29/17 Omeprazole 20 mg PO DAILY 11/29/17 Allergies/Adverse Reactions: No Known Allergies Allergy (Verified 04/25/17 18:37) Review of Systems ROS unobtainable: Due to endotracheal tube Physical Exam Vital Signs: Temp Pulse Resp BP Pulse Ox 99.1 F 98 24 H 121/83 96 11/29/17 19:39 11/29/17 17:54 11/29/17 17:54 11/29/17 17:55 11/29/17 18:00 Intake & Output 11/28/17 11/29/17 11/30/17 06:59 06:59 06:59 Intake Total 1693 Output Total 2355 Balance -662 General appearance: PRESENT: other - Patient is sedated on mechanical ventilation Respiratory exam: PRESENT: rhonchi Cardiovascular exam: PRESENT: +S1, +S2 GI/Abdominal exam: PRESENT: soft Neurological exam: PRESENT: other - Sedated Results Laboratory Results: 11/29/17 10:30 11/29/17 17:30 11/29/17 11/29/17 11/29/17 02:19 03:51 09:25 WBC RBC Hgb Hct MCV MCH MCHC RDW Plt Count Seg Neutrophils % Lymphocytes % Monocytes % Eosinophils % Basophils % Absolute Neutrophils Absolute Lymphocytes Absolute Monocytes Absolute Eosinophils Absolute Basophils Carbonic Acid 1.02 L HCO3/H2CO3 Ratio 16:1 ABG pH 7.31 L ABG pCO2 33.9 L ABG pO2 116.1 H ABG HCO3 16.5 L ABG O2 Saturation 97.9 ABG Base Excess -8.9 FiO2 15L Sodium Potassium Chloride Carbon Dioxide Anion Gap BUN Creatinine Est GFR ( Amer) Est GFR (Non-Af Amer) Glucose Lactic Acid 7.8 H Calcium Phosphorus Magnesium Total Bilirubin AST ALT Alkaline Phosphatase Total Protein Albumin Urine Color YELLOW Urine Appearance CLEAR Urine pH 5.0 Ur Specific [place] 1.053 Urine Protein NEGATIVE Urine Glucose (UA) NEGATIVE Urine Ketones NEGATIVE Urine Blood SMALL H Urine Nitrite NEGATIVE Ur Leukocyte Esterase NEGATIVE Urine WBC (Auto) 3 Urine RBC (Auto) 2 Stool Occult Blood Stool for White Cells 11/29/17 11/29/17 11/29/17 10:30 10:30 10:43 WBC 7.5 RBC 2.19 L Hgb 9.0 L D Hct 26.2 L MCV 120 H MCH 41.0 H MCHC 34.3 RDW 17.3 H Plt Count 65 L Seg Neutrophils % Not Reportable Lymphocytes % Not Reportable Monocytes % Not Reportable Eosinophils % Not Reportable Basophils % Not Reportable Absolute Neutrophils Not Reportable Absolute Lymphocytes Not Reportable Absolute Monocytes Not Reportable Absolute Eosinophils Not Reportable Absolute Basophils Not Reportable Carbonic Acid 1.22 HCO3/H2CO3 Ratio 13:1 ABG pH 7.23 L ABG pCO2 40.4 ABG pO2 100.9 H ABG HCO3 16.4 L ABG O2 Saturation 96.5 ABG Base Excess -10.4 FiO2 80% Sodium 146.0 H Potassium 3.3 L Chloride 112 H Carbon Dioxide 17 L Anion Gap 17 BUN 9 Creatinine 0.78 Est GFR ( Amer) > 60 Est GFR (Non-Af Amer) > 60 Glucose 76 Lactic Acid Calcium 7.6 L Phosphorus 4.6 H Magnesium 0.4 L* Total Bilirubin 3.0 H AST 92 H ALT 27 Alkaline Phosphatase 52 Total Protein 5.9 L Albumin 2.6 L Urine Color Urine Appearance Urine pH Ur Specific [place] Urine Protein Urine Glucose (UA) Urine Ketones Urine Blood Urine Nitrite Ur Leukocyte Esterase Urine WBC (Auto) Urine RBC (Auto) Stool Occult Blood Stool for White Cells 11/29/17 11/29/17 11/29/17 10:43 10:43 15:35 WBC RBC Hgb Hct MCV MCH MCHC RDW Plt Count Seg Neutrophils % Lymphocytes % Monocytes % Eosinophils % Basophils % Absolute Neutrophils Absolute Lymphocytes Absolute Monocytes Absolute Eosinophils Absolute Basophils Carbonic Acid HCO3/H2CO3 Ratio ABG pH ABG pCO2 ABG pO2 ABG HCO3 ABG O2 Saturation ABG Base Excess FiO2 Sodium Potassium Chloride Carbon Dioxide Anion Gap BUN Creatinine Est GFR ( Amer) Est GFR (Non-Af Amer) Glucose Lactic Acid 6.8 H Calcium Phosphorus Magnesium Total Bilirubin AST ALT Alkaline Phosphatase Total Protein Albumin Urine Color Urine Appearance Urine pH Ur Specific [place] Urine Protein Urine Glucose (UA) Urine Ketones Urine Blood Urine Nitrite Ur Leukocyte Esterase Urine WBC (Auto) Urine RBC (Auto) Stool Occult Blood POSITIVE Stool for White Cells NO WBCs SEEN 11/29/17 11/29/17 15:35 17:30 WBC RBC Hgb Hct MCV MCH MCHC RDW Plt Count Seg Neutrophils % Lymphocytes % Monocytes % Eosinophils % Basophils % Absolute Neutrophils Absolute Lymphocytes Absolute Monocytes Absolute Eosinophils Absolute Basophils Carbonic Acid 0.71 L HCO3/H2CO3 Ratio 19:1 ABG pH 7.39 ABG pCO2 23.7 L ABG pO2 84.1 ABG HCO3 14.0 L ABG O2 Saturation 96.5 ABG Base Excess -9.6 FiO2 60% Sodium 138.2 Potassium 2.9 L* Chloride 105 Carbon Dioxide 16 L Anion Gap 17 BUN 8 Creatinine 0.64 Est GFR ( Amer) > 60 Est GFR (Non-Af Amer) > 60 Glucose 143 H Lactic Acid Calcium 8.0 L Phosphorus Magnesium 1.2 L* Total Bilirubin 3.4 H AST 85 H ALT 22 Alkaline Phosphatase 45 Total Protein 6.0 L Albumin 3.0 L Urine Color Urine Appearance Urine pH Ur Specific [place] Urine Protein Urine Glucose (UA) Urine Ketones Urine Blood Urine Nitrite Ur Leukocyte Esterase Urine WBC (Auto) Urine RBC (Auto) Stool Occult Blood Stool for White Cells 11/29/17 11/29/17 11/29/17 03:51 03:51 10:30 Creatine Kinase 69 65 CK-MB (CK-2) 1.09 Troponin I < 0.012 NT-Pro-B Natriuret Pep 1040 H 11/29/17 11/29/17 10:30 10:30 Creatine Kinase Cancelled CK-MB (CK-2) 1.51 Troponin I < 0.012 NT-Pro-B Natriuret Pep Impressions: Chest/Abdomen CTA 11/28/17 21:03 IMPRESSION: Multiple areas of new consolidation in the posterior aspect of the right lung. New small right pleural effusion. New Small amount of perihepatic ascites and edematous appearance of the gallbladder. No emboli visualized in the main pulmonary arteries or the segmental branches. Abdomen Ultrasound 11/28/17 22:42 IMPRESSION: Small nonspecific gallbladder wall thickening/pericholecystic fluid. Else, unremarkable. Chest X-Ray 11/29/17 00:00 IMPRESSION: 1. Increased opacification in the right lung suggesting airspace disease and some degree of atelectasis. A small pleural effusion is suggested. 2. Tube and catheter placement as described. Head CT 11/29/17 00:00 IMPRESSION: No acute intracranial changes Air-fluid level left maxillary sinus from sinusitis EVIDENCE OF ACUTE STROKE: NO. KUB X-Ray 11/29/17 00:00 IMPRESSION: NG tube placement as described. Knee X-Ray 11/29/17 00:00 IMPRESSION: Old fractures of the proximal tibia and fibula with internal fixation of the tibial fracture. There is no acute abnormality. Tibia/Fibula X-Ray 11/29/17 00:00 IMPRESSION: No acute finding is present in the left tibia or fibula. Assessment & Plan - Diagnosis (1) Acute hypoxemic respiratory failure Is this a current diagnosis for this admission?: Yes Plan: Patient is on mechanical ventilation, pulmonary following (2) Pneumonia involving right lung Qualifiers: Pneumonia type: due to unspecified organism Lung location: unspecified part of lung Qualified Code(s): J18.9 - Pneumonia, unspecified organism Is this a current diagnosis for this admission?: Yes Plan: She has pneumonia involving the right lower lobe and upper lobe this is probably due to aspiration pneumonia, she is an alcoholic, urine drug screen was also negative for cocaine, she will empirically be treated with IV antibiotic to cover gram-negative organisms as well as gram-positive organisms, anaerobes. (3) Septic shock Is this a current diagnosis for this admission?: Yes Plan: She is in septic shock, she has had tremendous volume of normal saline, she also is started on intravenous vasopressin and norepinephrine to maintain blood pressure (4) Alcoholism Is this a current diagnosis for this admission?: Yes Plan: She has a history of alcoholism and alcohol withdrawal syndrome she is presently on lorazepam drip
[2017-11-29] MEDS: CEFEPIME HCL 2 GM in DEXTROSE 5%-WATER 50 ML IV SCH (20:52)
[2017-11-30] MEDS: PROPOFOL 100 ML IV PRN ×5 (00:03→21:59)
[2017-11-30] MEDS: VANCOMYCIN HCL 1,500 MG in DEXTROSE 5%-WATER 250 ML IV SCH ×2 (00:03→12:39)
[2017-11-30] MEDS: DEXTROSE 5%-WATER 250 ML with PHENYLEPHRINE HCL 40 MG IV PRN ×4 (00:04→17:52)
[2017-11-30] MEDS: IPRATROPIUM/ALBUTEROL 0.5-2.5 MG/3 ML AMPUL NEB SCH ×4 (01:52→20:32)
[2017-11-30] MEDS: LORAZEPAM INJ 2 MG/1 ML VIAL IV SCH ×3 (02:31→16:55)
[2017-11-30] MEDS: CLINDAMYCIN 600 MG/D5W RTU 600 MG/50 ML RTUPB IV SCH ×3 (02:31→17:50)
[2017-11-30] MEDS: LORAZEPAM 24 MG/ D5W 240 ML IV PRN ×4 (04:02→21:58)
[2017-11-30] MEDS: PANTOPRAZOLE SODIUM 40 MG VIAL IV SCH ×2 (05:42→17:52)
[2017-11-30 06:18] LABS: ARTERIAL BLOOD BASE EXCESS -5.4 mmol/L; ARTERIAL BLOOD H2CO3 0.72 mmol/L (1.05-1.35); ARTERIAL BLOOD O2 SATURATION 96.6 % (94-98); ARTERIAL BLOOD PCO2 23.9 mmHg (35-45); ARTERIAL BLOOD PH 7.47 (7.35-7.45); ARTERIAL BLOOD PO2 78.7 mmHg (80-100); ARTERIAL BLOOD TOTAL CO2 17.7 mmol/L (21-25)
[2017-11-30 06:21] LABS: ARTERIAL BLOOD FIO2 40%; HEMATOCRIT 25.2 % (36.0-47.0); HEMOGLOBIN 8.7 g/dL (12.0-15.5); MEAN CORPUSCULAR HEMOGLOBIN 40.4 pg (27.0-33.4); MEAN CORPUSCULAR HGB CONC 34.7 g/dL (32.0-36.0); RED BLOOD COUNT 2.16 10^6/uL (3.72-5.28); WHITE BLOOD COUNT 9.9 10^3/uL (4.0-10.5)
--- NOTE | 2017-11-30 06:29 | RADIOLOGY REPORT (SQ) ---
EXAM DESCRIPTION: CHEST SINGLE VIEW CLINICAL HISTORY: pna-resp failure COMPARISON: 11/29/2017 FINDINGS: Single frontal view of the chest. Endotracheal tube with tip 5 cm above the jana. NG tube with tip below the diaphragm. Right IJ central venous catheter tip in the high right atrium. Left lung is clear. Low lung volumes. Cardiomediastinal silhouette is stable. Stable right pleural effusion and right lung interstitial and alveolar opacities. No pneumothorax identified. Leads overlie the chest. No acute osseous abnormalities. Upper abdominal soft tissues are unremarkable. IMPRESSION: 1. Stable appearance of the chest.
[2017-11-30 06:39] LABS: ALANINE AMINOTRANSFERASE 25 U/L (9-52); ALBUMIN 2.7 g/dL (3.5-5.0); ALKALINE PHOSPHATASE 44 U/L (38-126); ANION GAP 16 (5-19); ASPARTATE AMINO TRANSFERASE 71 U/L (14-36); BILIRUBIN,DIRECT 2.9 mg/dL (0.0-0.4); BILIRUBIN,TOTAL 3.4 mg/dL (0.2-1.3); BLOOD UREA NITROGEN 9 mg/dL (7-20); CALCIUM 8.2 mg/dL (8.4-10.2); CARBON DIOXIDE 20 mmol/L (22-30); CHLORIDE 98 mmol/L (98-107); GLUCOSE 132 mg/dL (75-110); SODIUM 134.3 mmol/L (137-145); TOTAL PROTEIN 5.7 g/dL (6.3-8.2)
[2017-11-30 06:46] LABS: MEAN CORPUSCULAR VOLUME 116 fl (80-97); PLATELET COUNT 63 10^3/uL (150-450)
[2017-11-30 06:49] LABS: POTASSIUM 2.6 mmol/L (3.6-5.0)
[2017-11-30 06:56] LABS: ABSOLUTE LYMPHOCYTES# (MANUAL) 0.9 10^3/uL (0.5-4.7); ABSOLUTE MONOCYTES # (MANUAL) 0.5 10^3/uL (0.1-1.4); ABSOLUTE NEUTROPHILS# (MANUAL) 8.5 10^3/uL (1.7-8.2); BAND NEUTROPHILS % (MANUAL) 7 % (3-5); BASOPHILS % (MANUAL) 0 % (0-2); EOSINOPHILS % (MANUAL) 0 % (0-6); LYMPHOCYTES % (MANUAL) 9 % (13-45); MONOCYTES % (MANUAL) 5 % (3-13); SEGMENTED NEUTROPHILS % (MAN) 79 % (42-78); TOTAL CELLS COUNTED 100
[2017-11-30 06:57] LABS: ANISOCYTOSIS 1+; PLATELET COMMENT DECREASED; PLATELET LARGE PRESENT; POIKILOCYTOSIS 1+; TEAR DROP CELLS 1+; TOXIC GRANULATION 1+; TOXIC VACUOLATION PRESENT
[2017-11-30] MEDS ORDERED: POTASSIUM CHLORIDE 20 MEQ/50 ML RTU IV SCH (07:00)
[2017-11-30] MEDS: LEVOFLOXACIN 750 MG/D5W RTU 750 MG/150 ML RTUPB IV SCH (07:49)
[2017-11-30] MEDS: POTASSIUM CHLORIDE 20 MEQ/15 ML UDCUP NG SCH ×6 (07:49→23:26)
[2017-11-30] MEDS: NORMAL SALINE 1000 ML 1,000 ML IV PRN (07:53)
[2017-11-30] MEDS: MAGNESIUM SULFATE/D5W 1 GM/100 ML RTUPB IV SCH ×3 (08:14→10:38)
[2017-11-30 08:41] LABS: HEPATITIS A AB IGM Negative (Negative); HEPATITIS B CORE AB IGM Negative (Negative); HEPATITS B SURFACE ANTIGEN Negative (Negative)
[2017-11-30] MEDS: CEFEPIME HCL 2 GM in DEXTROSE 5%-WATER 50 ML IV SCH ×2 (09:09→20:03)
[2017-11-30] MEDS: ENOXAPARIN SODIUM INJ 40 MG/0.4 ML DISP.SYRIN SUBCUT SCH (09:10)
[2017-11-30 09:24] LABS: HEPATITIS C VIRUS ANTIBODY <0.1 s/co ratio (0.0-0.9)
--- NOTE | 2017-11-30 13:45 | PDOC PROGRESS REPORT ---
Subjective Progress Note for:: 11/30/17 Subjective:: Intubated and sedated Reason For Visit: [email or web address].ALCHOLISM,H/O ALCOHOL WITHDRAWAL Physical Exam Vital Signs: Temp Pulse Resp BP Pulse Ox 99.5 F 95 24 H 110/77 93 11/30/17 05:22 11/30/17 01:52 11/30/17 01:52 11/30/17 05:51 11/30/17 06:00 Intake & Output 11/29/17 11/30/17 12/01/17 06:59 06:59 06:59 Intake Total 4519 Output Total 4855 Balance -336 Weight 71.3 kg General appearance: PRESENT: no acute distress, disheveled, well-developed, well -nourished Head exam: PRESENT: atraumatic, normocephalic Eye exam: PRESENT: conjunctiva pale. ABSENT: EOMI, nystagmus, periorbital swelling, scleral icterus Mouth exam: PRESENT: dry mucosa, neck supple, tongue midline, other - ET tube in place Neck exam: ABSENT: carotid bruit, JVD, lymphadenopathy, thyromegaly, tracheal deviation, tracheostomy Respiratory exam: PRESENT: decreased breath sounds, prolonged expiratory phas, rales, rhonchi, unlabored. ABSENT: retraction, stridor Cardiovascular exam: PRESENT: RRR, +S1, +S2 Pulses: PRESENT: normal radial pulses GI/Abdominal exam: PRESENT: diminished bowel sounds, soft Extremities exam: ABSENT: calf tenderness, clubbing, joint swelling Musculoskeletal exam: ABSENT: deformity, dislocation Neurological exam: ABSENT: awake, oriented to person Skin exam: PRESENT: dry, warm Results Laboratory Results: 11/30/17 06:00 11/30/17 06:00 11/29/17 11/29/17 11/29/17 09:25 10:30 10:30 WBC 7.5 RBC 2.19 L Hgb 9.0 L D Hct 26.2 L MCV 120 H MCH 41.0 H MCHC 34.3 RDW 17.3 H Plt Count 65 L Seg Neutrophils % Not Reportable Lymphocytes % Not Reportable Monocytes % Not Reportable Eosinophils % Not Reportable Basophils % Not Reportable Absolute Neutrophils Not Reportable Absolute Lymphocytes Not Reportable Absolute Monocytes Not Reportable Absolute Eosinophils Not Reportable Absolute Basophils Not Reportable Carbonic Acid 1.02 L HCO3/H2CO3 Ratio 16:1 ABG pH 7.31 L ABG pCO2 33.9 L ABG pO2 116.1 H ABG HCO3 16.5 L ABG O2 Saturation 97.9 ABG Base Excess -8.9 FiO2 15L Sodium 146.0 H Potassium 3.3 L Chloride 112 H Carbon Dioxide 17 L Anion Gap 17 BUN 9 Creatinine 0.78 Est GFR ( Amer) > 60 Est GFR (Non-Af Amer) > 60 Glucose 76 Lactic Acid Calcium 7.6 L Phosphorus 4.6 H Magnesium 0.4 L* Total Bilirubin 3.0 H AST 92 H ALT 27 Alkaline Phosphatase 52 Total Protein 5.9 L Albumin 2.6 L Stool Occult Blood Stool for White Cells 11/29/17 11/29/17 11/29/17 10:43 10:43 10:43 WBC RBC Hgb Hct MCV MCH MCHC RDW Plt Count Seg Neutrophils % Lymphocytes % Monocytes % Eosinophils % Basophils % Absolute Neutrophils Absolute Lymphocytes Absolute Monocytes Absolute Eosinophils Absolute Basophils Carbonic Acid 1.22 HCO3/H2CO3 Ratio 13:1 ABG pH 7.23 L ABG pCO2 40.4 ABG pO2 100.9 H ABG HCO3 16.4 L ABG O2 Saturation 96.5 ABG Base Excess -10.4 FiO2 80% Sodium Potassium Chloride Carbon Dioxide Anion Gap BUN Creatinine Est GFR ( Amer) Est GFR (Non-Af Amer) Glucose Lactic Acid Calcium Phosphorus Magnesium Total Bilirubin AST ALT Alkaline Phosphatase Total Protein Albumin Stool Occult Blood POSITIVE Stool for White Cells NO WBCs SEEN 11/29/17 11/29/17 11/29/17 15:35 15:35 17:30 WBC RBC Hgb Hct MCV MCH MCHC RDW Plt Count Seg Neutrophils % Lymphocytes % Monocytes % Eosinophils % Basophils % Absolute Neutrophils Absolute Lymphocytes Absolute Monocytes Absolute Eosinophils Absolute Basophils Carbonic Acid 0.71 L HCO3/H2CO3 Ratio 19:1 ABG pH 7.39 ABG pCO2 23.7 L ABG pO2 84.1 ABG HCO3 14.0 L ABG O2 Saturation 96.5 ABG Base Excess -9.6 FiO2 60% Sodium 138.2 Potassium 2.9 L* Chloride 105 Carbon Dioxide 16 L Anion Gap 17 BUN 8 Creatinine 0.64 Est GFR ( Amer) > 60 Est GFR (Non-Af Amer) > 60 Glucose 143 H Lactic Acid 6.8 H Calcium 8.0 L Phosphorus Magnesium 1.2 L* Total Bilirubin 3.4 H AST 85 H ALT 22 Alkaline Phosphatase 45 Total Protein 6.0 L Albumin 3.0 L Stool Occult Blood Stool for White Cells 11/29/17 11/30/17 11/30/17 19:55 00:10 06:00 WBC RBC Hgb Hct MCV MCH MCHC RDW Plt Count Seg Neutrophils % Lymphocytes % Monocytes % Eosinophils % Basophils % Absolute Neutrophils Absolute Lymphocytes Absolute Monocytes Absolute Eosinophils Absolute Basophils Carbonic Acid 0.72 L HCO3/H2CO3 Ratio 23:1 ABG pH 7.47 H ABG pCO2 23.9 L ABG pO2 78.7 L ABG HCO3 17.0 L ABG O2 Saturation 96.6 ABG Base Excess -5.4 FiO2 40% Sodium Potassium Chloride Carbon Dioxide Anion Gap BUN Creatinine Est GFR ( Amer) Est GFR (Non-Af Amer) Glucose Lactic Acid 6.9 H Calcium Phosphorus Magnesium 1.8 Total Bilirubin AST ALT Alkaline Phosphatase Total Protein Albumin Stool Occult Blood Stool for White Cells 11/30/17 11/30/17 06:00 06:00 WBC 9.9 RBC 2.16 L Hgb 8.7 L Hct 25.2 L MCV 116 H D MCH 40.4 H MCHC 34.7 RDW 17.0 H Plt Count 63 L Seg Neutrophils % Not Reportable Lymphocytes % Not Reportable Monocytes % Not Reportable Eosinophils % Not Reportable Basophils % Not Reportable Absolute Neutrophils Not Reportable Absolute Lymphocytes Not Reportable Absolute Monocytes Not Reportable Absolute Eosinophils Not Reportable Absolute Basophils Not Reportable Carbonic Acid HCO3/H2CO3 Ratio ABG pH ABG pCO2 ABG pO2 ABG HCO3 ABG O2 Saturation ABG Base Excess FiO2 Sodium 134.3 L Potassium 2.6 L* Chloride 98 Carbon Dioxide 20 L Anion Gap 16 BUN 9 Creatinine 0.60 Est GFR ( Amer) > 60 Est GFR (Non-Af Amer) > 60 Glucose 132 H Lactic Acid Calcium 8.2 L Phosphorus Magnesium 1.5 L Total Bilirubin 3.4 H AST 71 H ALT 25 Alkaline Phosphatase 44 Total Protein 5.7 L Albumin 2.7 L Stool Occult Blood Stool for White Cells 11/29/17 11/29/17 11/29/17 03:51 03:51 10:30 Creatine Kinase 69 65 CK-MB (CK-2) 1.09 Troponin I < 0.012 NT-Pro-B Natriuret Pep 1040 H 11/29/17 11/29/17 10:30 10:30 Creatine Kinase Cancelled CK-MB (CK-2) 1.51 Troponin I < 0.012 NT-Pro-B Natriuret Pep Impressions: Chest/Abdomen CTA 11/28/17 21:03 IMPRESSION: Multiple areas of new consolidation in the posterior aspect of the right lung. New small right pleural effusion. New Small amount of perihepatic ascites and edematous appearance of the gallbladder. No emboli visualized in the main pulmonary arteries or the segmental branches. Abdomen Ultrasound 11/28/17 22:42 IMPRESSION: Small nonspecific gallbladder wall thickening/pericholecystic fluid. Else, unremarkable. Head CT 11/29/17 00:00 IMPRESSION: No acute intracranial changes Air-fluid level left maxillary sinus from sinusitis EVIDENCE OF ACUTE STROKE: NO. KUB X-Ray 11/29/17 00:00 IMPRESSION: NG tube placement as described. Knee X-Ray 11/29/17 00:00 IMPRESSION: Old fractures of the proximal tibia and fibula with internal fixation of the tibial fracture. There is no acute abnormality. Tibia/Fibula X-Ray 11/29/17 00:00 IMPRESSION: No acute finding is present in the left tibia or fibula. Chest X-Ray 11/30/17 06:00 IMPRESSION: 1. Stable appearance of the chest. Assessment & Plan - Diagnosis (1) Severe sepsis Is this a current diagnosis for this admission?: Yes Plan: Slowly improving (2) Acute hypoxemic respiratory failure Is this a current diagnosis for this admission?: Yes Plan: Improving FiO2 decreased to 40% (3) Alcohol withdrawal Qualifiers: Complication of substance-induced condition: with delirium Qualified Code(s ): F10.231 - Alcohol dependence with withdrawal delirium Is this a current diagnosis for this admission?: Yes (4) Chronic obstructive pulmonary disease (COPD) Qualifiers: COPD type: unspecified COPD Qualified Code(s): J44.9 - Chronic obstructive pulmonary disease, unspecified Is this a current diagnosis for this admission?: Yes Plan: duoneb prn xopenex - Time Total Critical Time (Minutes): 45
[2017-11-30 14:57] LABS: ALANINE AMINOTRANSFERASE 26 U/L (9-52); ALBUMIN 2.6 g/dL (3.5-5.0); ALKALINE PHOSPHATASE 44 U/L (38-126); ANION GAP 16 (5-19); ASPARTATE AMINO TRANSFERASE 59 U/L (14-36); BILIRUBIN,DIRECT 2.9 mg/dL (0.0-0.4); BILIRUBIN,TOTAL 3.5 mg/dL (0.2-1.3); BLOOD UREA NITROGEN 10 mg/dL (7-20); CARBON DIOXIDE 20 mmol/L (22-30); CHLORIDE 94 mmol/L (98-107); GLUCOSE 109 mg/dL (75-110); SODIUM 129.6 mmol/L (137-145); TOTAL PROTEIN 5.5 g/dL (6.3-8.2)
[2017-11-30 15:03] LABS: POTASSIUM 2.8 mmol/L (3.6-5.0)
[2017-11-30 16:32] LABS: VENOUS BLOOD BASE EXCESS -2.3 mmol/L; VENOUS BLOOD HCO3 21.5 mmol/L (20-32); VENOUS BLOOD PCO2 33.1 mmHg (35-63); VENOUS BLOOD PH 7.43 (7.30-7.42)
[2017-11-30] MEDS: NORMAL SALINE 1000 ML 1,000 ML with MAGNESIUM SULFATE 8 MEQ, THIAMINE HCL 100 MG, MVI, ... IV SCH ×5 (17:48)
--- NOTE | 2017-11-30 21:52 | PDOC PROGRESS REPORT ---
Subjective Progress Note for:: 11/30/17 Subjective:: She is sedated on mechanical ventilation Reason For Visit: [email or web address].ALCHOLISM,H/O ALCOHOL WITHDRAWAL Physical Exam Vital Signs: Temp Pulse Resp BP Pulse Ox 99.3 F 89 20 120/81 99 11/30/17 19:57 11/30/17 21:00 11/30/17 18:00 11/30/17 18:00 11/30/17 18:00 Intake & Output 11/29/17 11/30/17 12/01/17 06:59 06:59 06:59 Intake Total 4519 2232 Output Total 4855 2430 Balance -336 -198 Weight 71.3 kg Eye exam: PRESENT: PERRLA Respiratory exam: PRESENT: decreased breath sounds Cardiovascular exam: PRESENT: +S1, +S2 GI/Abdominal exam: PRESENT: soft Neurological exam: PRESENT: other - Sedated Results Laboratory Results: 11/30/17 06:00 11/30/17 14:27 11/30/17 11/30/17 11/30/17 00:10 06:00 06:00 WBC 9.9 RBC 2.16 L Hgb 8.7 L Hct 25.2 L MCV 116 H D MCH 40.4 H MCHC 34.7 RDW 17.0 H Plt Count 63 L Seg Neutrophils % Not Reportable Lymphocytes % Not Reportable Monocytes % Not Reportable Eosinophils % Not Reportable Basophils % Not Reportable Absolute Neutrophils Not Reportable Absolute Lymphocytes Not Reportable Absolute Monocytes Not Reportable Absolute Eosinophils Not Reportable Absolute Basophils Not Reportable Carbonic Acid 0.72 L HCO3/H2CO3 Ratio 23:1 ABG pH 7.47 H ABG pCO2 23.9 L ABG pO2 78.7 L ABG HCO3 17.0 L ABG O2 Saturation 96.6 ABG Base Excess -5.4 VBG pH VBG pCO2 VBG HCO3 VBG Base Excess FiO2 40% Sodium Potassium Chloride Carbon Dioxide Anion Gap BUN Creatinine Est GFR ( Amer) Est GFR (Non-Af Amer) Glucose Lactic Acid Calcium Magnesium 1.8 Total Bilirubin AST ALT Alkaline Phosphatase Total Protein Albumin 11/30/17 11/30/17 11/30/17 06:00 11:00 14:27 WBC RBC Hgb Hct MCV MCH MCHC RDW Plt Count Seg Neutrophils % Lymphocytes % Monocytes % Eosinophils % Basophils % Absolute Neutrophils Absolute Lymphocytes Absolute Monocytes Absolute Eosinophils Absolute Basophils Carbonic Acid HCO3/H2CO3 Ratio ABG pH ABG pCO2 ABG pO2 ABG HCO3 ABG O2 Saturation ABG Base Excess VBG pH VBG pCO2 VBG HCO3 VBG Base Excess FiO2 Sodium 134.3 L 129.6 L Potassium 2.6 L* 2.8 L* Chloride 98 94 L Carbon Dioxide 20 L 20 L Anion Gap 16 16 BUN 9 10 Creatinine 0.60 0.67 Est GFR ( Amer) > 60 > 60 Est GFR (Non-Af Amer) > 60 > 60 Glucose 132 H 109 Lactic Acid 4.9 H Calcium 8.2 L 8.0 L Magnesium 1.5 L Total Bilirubin 3.4 H 3.5 H AST 71 H 59 H ALT 25 26 Alkaline Phosphatase 44 44 Total Protein 5.7 L 5.5 L Albumin 2.7 L 2.6 L 11/30/17 11/30/17 16:15 16:35 WBC RBC Hgb Hct MCV MCH MCHC RDW Plt Count Seg Neutrophils % Lymphocytes % Monocytes % Eosinophils % Basophils % Absolute Neutrophils Absolute Lymphocytes Absolute Monocytes Absolute Eosinophils Absolute Basophils Carbonic Acid HCO3/H2CO3 Ratio ABG pH ABG pCO2 ABG pO2 ABG HCO3 ABG O2 Saturation ABG Base Excess VBG pH 7.43 H VBG pCO2 33.1 L VBG HCO3 21.5 VBG Base Excess -2.3 FiO2 Sodium Potassium Chloride Carbon Dioxide Anion Gap BUN Creatinine Est GFR ( Amer) Est GFR (Non-Af Amer) Glucose Lactic Acid 3.8 H Calcium Magnesium Total Bilirubin AST ALT Alkaline Phosphatase Total Protein Albumin 11/29/17 11/29/17 11/29/17 03:51 03:51 10:30 Creatine Kinase 69 65 CK-MB (CK-2) 1.09 Troponin I < 0.012 NT-Pro-B Natriuret Pep 1040 H 11/29/17 11/29/17 10:30 10:30 Creatine Kinase Cancelled CK-MB (CK-2) 1.51 Troponin I < 0.012 NT-Pro-B Natriuret Pep Impressions: Chest/Abdomen CTA 11/28/17 21:03 IMPRESSION: Multiple areas of new consolidation in the posterior aspect of the right lung. New small right pleural effusion. New Small amount of perihepatic ascites and edematous appearance of the gallbladder. No emboli visualized in the main pulmonary arteries or the segmental branches. Abdomen Ultrasound 11/28/17 22:42 IMPRESSION: Small nonspecific gallbladder wall thickening/pericholecystic fluid. Else, unremarkable. Head CT 11/29/17 00:00 IMPRESSION: No acute intracranial changes Air-fluid level left maxillary sinus from sinusitis EVIDENCE OF ACUTE STROKE: NO. KUB X-Ray 11/29/17 00:00 IMPRESSION: NG tube placement as described. Knee X-Ray 11/29/17 00:00 IMPRESSION: Old fractures of the proximal tibia and fibula with internal fixation of the tibial fracture. There is no acute abnormality. Tibia/Fibula X-Ray 11/29/17 00:00 IMPRESSION: No acute finding is present in the left tibia or fibula. Chest X-Ray 11/30/17 06:00 IMPRESSION: 1. Stable appearance of the chest. Assessment & Plan - Diagnosis (1) Acute hypoxemic respiratory failure Is this a current diagnosis for this admission?: Yes Plan: Patient still on mechanical ventilation (2) Pneumonia involving right lung Qualifiers: Pneumonia type: due to unspecified organism Lung location: unspecified part of lung Qualified Code(s): J18.9 - Pneumonia, unspecified organism Is this a current diagnosis for this admission?: Yes Plan: Continue empiric antibiotic (3) Septic shock Is this a current diagnosis for this admission?: Yes Plan: Continue norepinephrine and vasopressin (4) Alcoholism Is this a current diagnosis for this admission?: Yes Plan: Continue sedation (5) Hypokalemia Is this a current diagnosis for this admission?: Yes Plan: Replace potassium (6) Hypomagnesemia Is this a current diagnosis for this admission?: Yes Plan: Replace magnesium (7) Thrombocytopenia Is this a current diagnosis for this admission?: Yes Plan: Alcohol related
[2017-12-01] MEDS: VANCOMYCIN HCL 1,500 MG in DEXTROSE 5%-WATER 250 ML IV SCH ×2 (00:28→12:52)
[2017-12-01] MEDS: LORAZEPAM INJ 2 MG/1 ML VIAL IV SCH ×2 (01:42→11:58)
[2017-12-01] MEDS: CLINDAMYCIN 600 MG/D5W RTU 600 MG/50 ML RTUPB IV SCH ×3 (01:43→17:50)
[2017-12-01] MEDS: PROPOFOL 100 ML IV PRN ×4 (01:43→21:25)
[2017-12-01] MEDS: IPRATROPIUM/ALBUTEROL 0.5-2.5 MG/3 ML AMPUL NEB SCH ×4 (02:16→20:14)
[2017-12-01] MEDS: DEXTROSE 5%-WATER 250 ML with VASOPRESSIN 100 UNIT IV PRN ×2 (04:53)
[2017-12-01] MEDS: LORAZEPAM 24 MG/ D5W 240 ML IV PRN ×3 (04:54→18:56)
[2017-12-01] MEDS: NORMAL SALINE 1000 ML 1,000 ML IV PRN (04:55)
[2017-12-01] MEDS: PANTOPRAZOLE SODIUM 40 MG VIAL IV SCH ×2 (05:01→18:18)
[2017-12-01 05:43] LABS: ARTERIAL BLOOD BASE EXCESS -1.2 mmol/L; ARTERIAL BLOOD FIO2 40%; ARTERIAL BLOOD H2CO3 0.85 mmol/L (1.05-1.35); ARTERIAL BLOOD HCO3 21.4 mmol/L (20-26); ARTERIAL BLOOD O2 SATURATION 97.3 % (94-98); ARTERIAL BLOOD PCO2 28.1 mmHg (35-45); ARTERIAL BLOOD PO2 84.8 mmHg (80-100); ARTERIAL BLOOD TOTAL CO2 22.2 mmol/L (21-25)
[2017-12-01 05:56] LABS: ALANINE AMINOTRANSFERASE 23 U/L (9-52); ALBUMIN 2.5 g/dL (3.5-5.0); ALKALINE PHOSPHATASE 53 U/L (38-126); ANION GAP 12 (5-19); ASPARTATE AMINO TRANSFERASE 52 U/L (14-36); BILIRUBIN,DIRECT 3.2 mg/dL (0.0-0.4); BILIRUBIN,TOTAL 3.7 mg/dL (0.2-1.3); BLOOD UREA NITROGEN 11 mg/dL (7-20); CALCIUM 8.2 mg/dL (8.4-10.2); CARBON DIOXIDE 22 mmol/L (22-30); CHLORIDE 91 mmol/L (98-107); GLUCOSE 99 mg/dL (75-110); PHOSPHORUS 2.4 mg/dL (2.5-4.5); SODIUM 125.4 mmol/L (137-145); TOTAL PROTEIN 5.5 g/dL (6.3-8.2)
[2017-12-01 05:58] LABS: ABSOLUTE LYMPHOCYTES (AUTO) 0.6 10^3/uL (0.5-4.7); ABSOLUTE MONOCYTES (AUTO) 0.7 10^3/uL (0.1-1.4); BASOPHILS % (AUTO) 0.1 % (0-2); EOSINOPHILS % (AUTO) 0.4 % (0-6); HEMATOCRIT 23.3 % (36.0-47.0); HEMOGLOBIN 8.3 g/dL (12.0-15.5); LYMPHOCYTES % (AUTO) 5.6 % (13-45); MEAN CORPUSCULAR HEMOGLOBIN 41.1 pg (27.0-33.4); MEAN CORPUSCULAR HGB CONC 35.8 g/dL (32.0-36.0); MEAN CORPUSCULAR VOLUME 115 fl (80-97); MONOCYTES % (AUTO) 6.9 % (3-13); POTASSIUM 2.7 mmol/L (3.6-5.0); RED BLOOD COUNT 2.03 10^6/uL (3.72-5.28); RED CELL DISTRIBUTION WIDTH 16.6 % (11.5-14.0); TOTAL CELLS COUNTED % (AUTO) 100 %; WHITE BLOOD COUNT 10.4 10^3/uL (4.0-10.5)
--- NOTE | 2017-12-01 06:33 | RADIOLOGY REPORT (SQ) ---
EXAM DESCRIPTION: CHEST SINGLE VIEW CLINICAL HISTORY: resp failure/pna COMPARISON: 11/30/2017 FINDINGS: Single frontal view of the chest. Endotracheal tube with tip 5 cm above the jana. NG tube with tip below the diaphragm. Right IJ central venous catheter tip in the high right atrium. Left lung is clear. Low lung volumes. Cardiomediastinal silhouette is stable. Interval increase in right pleural effusion and right lung interstitial and alveolar opacities. No pneumothorax identified. Leads overlie the chest. No acute osseous abnormalities. Upper abdominal soft tissues are unremarkable. IMPRESSION: 1. Interval increase in right pleural effusion and right lung airspace opacity. Electronically signed by: Santiago Philip 12/01/2017 5:31 AM
[2017-12-01 06:38] LABS: PLATELET COUNT 65 10^3/uL (150-450)
[2017-12-01 06:42] LABS: PLATELET COMMENT DECREASED
[2017-12-01 06:43] LABS: PLATELET LARGE PRESENT
[2017-12-01] MEDS: MAGNESIUM SULFATE 1 GM/D5W 100 ML IV SCH ×2 (06:43→07:49)
[2017-12-01 06:44] LABS: ANISOCYTOSIS 1+; HYPOCHROMASIA 1+; POIKILOCYTOSIS SLIGHT; TEAR DROP CELLS SLIGHT
[2017-12-01] MEDS ORDERED: POTASSIUM CHLORIDE 20 MEQ/15 ML UDCUP NG SCH (06:45)
[2017-12-01] MEDS ORDERED: POTASSIUM CHLORIDE 10 MEQ TABLET.SA PO SCH (07:00)
[2017-12-01] MEDS: LEVOFLOXACIN 750 MG/D5W RTU 750 MG/150 ML RTUPB IV SCH (07:52)
[2017-12-01] MEDS: POTASSIUM CHLORIDE 20 MEQ/50 ML RTU IV SCH ×3 (08:43→11:47)
[2017-12-01] MEDS ORDERED: MAGNESIUM SULFATE 4 GM/100 ML RTUPB IV ONE (09:30)
[2017-12-01] MEDS ORDERED: POTASSIUM CHLORIDE 20 MEQ/15 ML UDCUP PO SCH (10:00)
[2017-12-01] MEDS: CEFEPIME HCL 2 GM in DEXTROSE 5%-WATER 50 ML IV SCH (10:05)
[2017-12-01] MEDS: DEXTROSE 5%-WATER 250 ML with PHENYLEPHRINE HCL 40 MG IV PRN ×2 (10:10)
[2017-12-01 11:24] LABS: INTERNATIONAL RATION (INR) 1.21; PROTHROMBIN TIME 15.9 SEC (11.4-15.4)
[2017-12-01 11:25] LABS: PARTIAL THROMBOPLASTIN TIME 38.1 SEC (23.5-35.8)
[2017-12-01] MEDS ORDERED: PHYTONADIONE INJ 10 MG/1 ML AMPULE SUBCUT ONE (11:41)
[2017-12-01 14:35] LABS: ANION GAP 11 (5-19); BLOOD UREA NITROGEN 12 mg/dL (7-20); CALCIUM 8.1 mg/dL (8.4-10.2); CARBON DIOXIDE 20 mmol/L (22-30); CHLORIDE 92 mmol/L (98-107); GLUCOSE 112 mg/dL (75-110); SODIUM 122.8 mmol/L (137-145)
[2017-12-01 14:55] LABS: POTASSIUM 4.2 mmol/L (3.6-5.0)
--- NOTE | 2017-12-01 15:19 | PDOC PROGRESS REPORT ---
Subjective Progress Note for:: 12/01/17 Subjective:: Patient is sedated and intubated, blood culture grew Streptococcus pneumonia sensitive to most antibiotic including clindamycin, will de-escalate antibiotic and keep only clindamycin, this will cover potential anaerobes and also potential MRSA if any, she has right parapneumonic effusion, blood culture grew Streptococcus pneumonia, still requiring IV pressors, she is thrombocytopenic, may require platelet to have thoracentesis of the right lung Reason For Visit: [email or web address].ALCHOLISM,H/O ALCOHOL WITHDRAWAL Physical Exam Vital Signs: Temp Pulse Resp BP Pulse Ox 99.0 F 108 H 21 H 121/87 H 100 12/01/17 14:56 12/01/17 14:56 12/01/17 14:56 12/01/17 14:45 12/01/17 14:56 Intake & Output 11/30/17 12/01/17 12/02/17 06:59 06:59 06:59 Intake Total 4519 5029 327 Output Total 4855 4380 6011 Balance -336 433 -013 Weight 71.3 kg 73.6 kg Eye exam: PRESENT: PERRLA Respiratory exam: PRESENT: rhonchi Cardiovascular exam: PRESENT: +S1, +S2 GI/Abdominal exam: PRESENT: soft Results Laboratory Results: 12/01/17 05:30 12/01/17 13:16 11/30/17 11/30/17 12/01/17 16:15 16:35 05:30 WBC RBC Hgb Hct MCV MCH MCHC RDW Plt Count Seg Neutrophils % Lymphocytes % Monocytes % Eosinophils % Basophils % Absolute Neutrophils Absolute Lymphocytes Absolute Monocytes Absolute Eosinophils Absolute Basophils Carbonic Acid 0.85 L HCO3/H2CO3 Ratio 25:1 ABG pH 7.50 H ABG pCO2 28.1 L ABG pO2 84.8 ABG HCO3 21.4 ABG O2 Saturation 97.3 ABG Base Excess -1.2 VBG pH 7.43 H VBG pCO2 33.1 L VBG HCO3 21.5 VBG Base Excess -2.3 FiO2 40% Sodium Potassium Chloride Carbon Dioxide Anion Gap BUN Creatinine Est GFR ( Amer) Est GFR (Non-Af Amer) Glucose Lactic Acid 3.8 H Calcium Phosphorus Magnesium Total Bilirubin AST ALT Alkaline Phosphatase Total Protein Albumin Blood Type 12/01/17 12/01/17 12/01/17 05:30 05:30 11:11 WBC 10.4 RBC 2.03 L Hgb 8.3 L Hct 23.3 L MCV 115 H MCH 41.1 H MCHC 35.8 RDW 16.6 H Plt Count 65 L Seg Neutrophils % 87.0 H Lymphocytes % 5.6 L Monocytes % 6.9 Eosinophils % 0.4 Basophils % 0.1 Absolute Neutrophils 9.0 H Absolute Lymphocytes 0.6 Absolute Monocytes 0.7 Absolute Eosinophils 0.0 Absolute Basophils 0.0 Carbonic Acid HCO3/H2CO3 Ratio ABG pH ABG pCO2 ABG pO2 ABG HCO3 ABG O2 Saturation ABG Base Excess VBG pH VBG pCO2 VBG HCO3 VBG Base Excess FiO2 Sodium 125.4 L Potassium 2.7 L* Chloride 91 L Carbon Dioxide 22 Anion Gap 12 BUN 11 Creatinine 0.60 Est GFR ( Amer) > 60 Est GFR (Non-Af Amer) > 60 Glucose 99 Lactic Acid 2.4 H Calcium 8.2 L Phosphorus 2.4 L Magnesium 1.3 L Total Bilirubin 3.7 H AST 52 H ALT 23 Alkaline Phosphatase 53 Total Protein 5.5 L Albumin 2.5 L Blood Type 12/01/17 12/01/17 13:16 13:16 WBC RBC Hgb Hct MCV MCH MCHC RDW Plt Count Seg Neutrophils % Lymphocytes % Monocytes % Eosinophils % Basophils % Absolute Neutrophils Absolute Lymphocytes Absolute Monocytes Absolute Eosinophils Absolute Basophils Carbonic Acid HCO3/H2CO3 Ratio ABG pH ABG pCO2 ABG pO2 ABG HCO3 ABG O2 Saturation ABG Base Excess VBG pH VBG pCO2 VBG HCO3 VBG Base Excess FiO2 Sodium 122.8 L Potassium 4.2 D Chloride 92 L Carbon Dioxide 20 L Anion Gap 11 BUN 12 Creatinine 0.67 Est GFR ( Amer) > 60 Est GFR (Non-Af Amer) > 60 Glucose 112 H Lactic Acid Calcium 8.1 L Phosphorus Magnesium 1.6 Total Bilirubin AST ALT Alkaline Phosphatase Total Protein Albumin Blood Type B POSITIVE 11/29/17 09:45 Tracheal Aspirate Gram Stain - Final 11/29/17 09:45 Tracheal Aspirate Sputum Culture - Final NORMAL CASEY 11/29/17 11/29/17 11/29/17 03:51 03:51 10:30 Creatine Kinase 69 65 CK-MB (CK-2) 1.09 Troponin I < 0.012 NT-Pro-B Natriuret Pep 1040 H 11/29/17 11/29/17 10:30 10:30 Creatine Kinase Cancelled CK-MB (CK-2) 1.51 Troponin I < 0.012 NT-Pro-B Natriuret Pep Impressions: Chest/Abdomen CTA 11/28/17 21:03 IMPRESSION: Multiple areas of new consolidation in the posterior aspect of the right lung. New small right pleural effusion. New Small amount of perihepatic ascites and edematous appearance of the gallbladder. No emboli visualized in the main pulmonary arteries or the segmental branches. Abdomen Ultrasound 11/28/17 22:42 IMPRESSION: Small nonspecific gallbladder wall thickening/pericholecystic fluid. Else, unremarkable. Head CT 11/29/17 00:00 IMPRESSION: No acute intracranial changes Air-fluid level left maxillary sinus from sinusitis EVIDENCE OF ACUTE STROKE: NO. KUB X-Ray 11/29/17 00:00 IMPRESSION: NG tube placement as described. Knee X-Ray 11/29/17 00:00 IMPRESSION: Old fractures of the proximal tibia and fibula with internal fixation of the tibial fracture. There is no acute abnormality. Tibia/Fibula X-Ray 11/29/17 00:00 IMPRESSION: No acute finding is present in the left tibia or fibula. Chest X-Ray 12/01/17 06:00 IMPRESSION: 1. Interval increase in right pleural effusion and right lung airspace opacity. Assessment & Plan - Diagnosis (1) Acute hypoxemic respiratory failure Is this a current diagnosis for this admission?: Yes (2) Pneumonia involving right lung Qualifiers: Pneumonia type: due to unspecified organism Lung location: unspecified part of lung Qualified Code(s): J18.9 - Pneumonia, unspecified organism Is this a current diagnosis for this admission?: Yes (3) Septic shock Is this a current diagnosis for this admission?: Yes Plan: Continue IV vasopressor (4) Alcoholism Is this a current diagnosis for this admission?: Yes (5) Hypokalemia Is this a current diagnosis for this admission?: Yes (6) Hypomagnesemia Is this a current diagnosis for this admission?: Yes (7) Thrombocytopenia Is this a current diagnosis for this admission?: Yes (8) Septicemia due to Streptococcus pneumonia Is this a current diagnosis for this admission?: Yes Plan: We will continue clindamycin
[2017-12-01] MEDS: NORMAL SALINE 1000 ML 1,000 ML with MAGNESIUM SULFATE 8 MEQ, THIAMINE HCL 100 MG, MVI, ... IV SCH ×5 (21:49)
[2017-12-02] MEDS: PROPOFOL 100 ML IV PRN ×6 (00:24→23:12)
[2017-12-02] MEDS: IPRATROPIUM/ALBUTEROL 0.5-2.5 MG/3 ML AMPUL NEB SCH ×4 (01:44→20:11)
[2017-12-02] MEDS: CLINDAMYCIN 600 MG/D5W RTU 600 MG/50 ML RTUPB IV SCH ×3 (02:40→17:48)
[2017-12-02] MEDS: LORAZEPAM 24 MG/ D5W 240 ML IV PRN ×4 (02:41→19:38)
[2017-12-02] MEDS: PANTOPRAZOLE SODIUM 40 MG VIAL IV SCH ×2 (05:32→17:48)
[2017-12-02] MEDS: DEXTROSE 5%-WATER 250 ML with PHENYLEPHRINE HCL 40 MG IV PRN ×2 (05:35)
[2017-12-02] MEDS: NORMAL SALINE 1000 ML 1,000 ML IV PRN (05:39)
[2017-12-02 05:47] LABS: HEMATOCRIT 21.2 % (36.0-47.0); MEAN CORPUSCULAR HEMOGLOBIN 40.6 pg (27.0-33.4); MEAN CORPUSCULAR HGB CONC 35.7 g/dL (32.0-36.0); MEAN CORPUSCULAR VOLUME 114 fl (80-97); RED BLOOD COUNT 1.86 10^6/uL (3.72-5.28); RED CELL DISTRIBUTION WIDTH 16.7 % (11.5-14.0); WHITE BLOOD COUNT 6.9 10^3/uL (4.0-10.5)
[2017-12-02 05:49] LABS: INTERNATIONAL RATION (INR) 1.13
[2017-12-02 05:50] LABS: ARTERIAL BLOOD BASE EXCESS -1.1 mmol/L; ARTERIAL BLOOD H2CO3 0.95 mmol/L (1.05-1.35); ARTERIAL BLOOD HCO3 22.8 mmol/L (20-26); ARTERIAL BLOOD PCO2 31.4 mmHg (35-45); ARTERIAL BLOOD PH 7.48 (7.35-7.45); ARTERIAL BLOOD PO2 74.3 mmHg (80-100); ARTERIAL BLOOD TOTAL CO2 23.8 mmol/L (21-25); PARTIAL THROMBOPLASTIN TIME 35.2 SEC (23.5-35.8)
[2017-12-02 05:53] LABS: ARTERIAL BLOOD FIO2 40%
[2017-12-02 05:56] LABS: HEMOGLOBIN 7.6 g/dL (12.0-15.5)
[2017-12-02 05:57] LABS: PLATELET COUNT 53 10^3/uL (150-450)
[2017-12-02 06:07] LABS: ALANINE AMINOTRANSFERASE 27 U/L (9-52); ALBUMIN 2.5 g/dL (3.5-5.0); ALKALINE PHOSPHATASE 88 U/L (38-126); ANION GAP 12 (5-19); ASPARTATE AMINO TRANSFERASE 61 U/L (14-36); BILIRUBIN,DIRECT 3.6 mg/dL (0.0-0.4); BLOOD UREA NITROGEN 11 mg/dL (7-20); CALCIUM 8.3 mg/dL (8.4-10.2); CARBON DIOXIDE 21 mmol/L (22-30); CHLORIDE 92 mmol/L (98-107); GLUCOSE 117 mg/dL (75-110); PHOSPHORUS 2.7 mg/dL (2.5-4.5); POTASSIUM 3.4 mmol/L (3.6-5.0); SODIUM 124.8 mmol/L (137-145); TOTAL PROTEIN 5.5 g/dL (6.3-8.2)
[2017-12-02 06:17] LABS: ABSOLUTE LYMPHOCYTES# (MANUAL) 0.3 10^3/uL (0.5-4.7); ABSOLUTE NEUTROPHILS# (MANUAL) 5.5 10^3/uL (1.7-8.2); BAND NEUTROPHILS % (MANUAL) 2 % (3-5); BASOPHILS % (MANUAL) 1 % (0-2); EOSINOPHILS % (MANUAL) 0 % (0-6); LYMPHOCYTES % (MANUAL) 5 % (13-45); MONOCYTES % (MANUAL) 14 % (3-13); SEGMENTED NEUTROPHILS % (MAN) 78 % (42-78); TOTAL CELLS COUNTED 100
[2017-12-02 06:20] LABS: ANISOCYTOSIS 1+
[2017-12-02 06:21] LABS: PLATELET COMMENT DECREASED; POIKILOCYTOSIS SLIGHT; TARGET CELLS SLIGHT
--- NOTE | 2017-12-02 06:52 | RADIOLOGY REPORT (SQ) ---
EXAM DESCRIPTION: CHEST SINGLE VIEW CLINICAL HISTORY: resp fail. Intubated patient. COMPARISON: 12/01/2017 FINDINGS: Single frontal view of the chest. Endotracheal tube with tip 5 cm above the jana. NG tube with tip below the diaphragm. Right IJ central venous catheter tip in the high right atrium. Oval increase in interstitial and left basilar opacities in the left lung. Low lung volumes. Cardiomediastinal silhouette is stable. Interval increase in right pleural effusion and right lung interstitial and alveolar opacities. No pneumothorax identified. Leads overlie the chest. No acute osseous abnormalities. Upper abdominal soft tissues are unremarkable. IMPRESSION: 1. Interval increase in right pleural effusion and right lung airspace opacity. 2. Interval increase in linear left basilar opacities which may be related to subsegmental atelectasis. Electronically signed by: Santiago Philip 12/02/2017 5:51 AM CDT
[2017-12-02] MEDS: MAGNESIUM SULFATE/D5W 1 GM/100 ML RTUPB IV SCH ×2 (10:07→11:10)
[2017-12-02] MEDS ORDERED: MAGNESIUM SULFATE/D5W 1 GM/100 ML RTUPB IV ONE (11:30)
--- NOTE | 2017-12-02 11:38 | PDOC PROGRESS REPORT ---
Subjective Progress Note for:: 12/01/17 Subjective:: Intubated and sedated Reason For Visit: PNEUMONIA.ALCHOLISM,H/O ALCOHOL WITHDRAWAL Physical Exam Vital Signs: Temp Pulse Resp BP Pulse Ox 98.2 F 92 20 107/79 99 12/01/17 08:00 12/01/17 08:22 12/01/17 08:22 12/01/17 08:00 12/01/17 08:22 Intake & Output 11/30/17 12/01/17 12/02/17 06:59 06:59 06:59 Intake Total 4519 5029 Output Total 4855 4380 400 Balance -336 649 -400 Weight 71.3 kg 73.6 kg General appearance: PRESENT: no acute distress, disheveled, well-developed. ABSENT: cooperative Head exam: PRESENT: atraumatic Eye exam: PRESENT: conjunctiva pale. ABSENT: EOMI, nystagmus, periorbital swelling, scleral icterus Mouth exam: PRESENT: dry mucosa, neck supple, tongue midline, other - ET tube in place Neck exam: ABSENT: carotid bruit, JVD, lymphadenopathy, thyromegaly, tracheal deviation, tracheostomy Respiratory exam: PRESENT: decreased breath sounds, prolonged expiratory phas, rales, rhonchi, unlabored. ABSENT: retraction, stridor, symmetrical, tachypnea Cardiovascular exam: PRESENT: RRR, +S1, +S2, tachycardia Pulses: PRESENT: normal radial pulses GI/Abdominal exam: PRESENT: diminished bowel sounds, soft Extremities exam: ABSENT: calf tenderness, clubbing Musculoskeletal exam: ABSENT: ambulatory, deformity, dislocation Neurological exam: ABSENT: awake, oriented to person Skin exam: PRESENT: dry, warm Results Laboratory Results: 12/01/17 05:30 12/01/17 05:30 11/30/17 11/30/17 11/30/17 11:00 14:27 16:15 WBC RBC Hgb Hct MCV MCH MCHC RDW Plt Count Seg Neutrophils % Lymphocytes % Monocytes % Eosinophils % Basophils % Absolute Neutrophils Absolute Lymphocytes Absolute Monocytes Absolute Eosinophils Absolute Basophils Carbonic Acid HCO3/H2CO3 Ratio ABG pH ABG pCO2 ABG pO2 ABG HCO3 ABG O2 Saturation ABG Base Excess VBG pH 7.43 H VBG pCO2 33.1 L VBG HCO3 21.5 VBG Base Excess -2.3 FiO2 Sodium 129.6 L Potassium 2.8 L* Chloride 94 L Carbon Dioxide 20 L Anion Gap 16 BUN 10 Creatinine 0.67 Est GFR ( Amer) > 60 Est GFR (Non-Af Amer) > 60 Glucose 109 Lactic Acid 4.9 H Calcium 8.0 L Phosphorus Magnesium Total Bilirubin 3.5 H AST 59 H ALT 26 Alkaline Phosphatase 44 Total Protein 5.5 L Albumin 2.6 L 11/30/17 12/01/17 12/01/17 16:35 05:30 05:30 WBC 10.4 RBC 2.03 L Hgb 8.3 L Hct 23.3 L MCV 115 H MCH 41.1 H MCHC 35.8 RDW 16.6 H Plt Count 65 L Seg Neutrophils % 87.0 H Lymphocytes % 5.6 L Monocytes % 6.9 Eosinophils % 0.4 Basophils % 0.1 Absolute Neutrophils 9.0 H Absolute Lymphocytes 0.6 Absolute Monocytes 0.7 Absolute Eosinophils 0.0 Absolute Basophils 0.0 Carbonic Acid 0.85 L HCO3/H2CO3 Ratio 25:1 ABG pH 7.50 H ABG pCO2 28.1 L ABG pO2 84.8 ABG HCO3 21.4 ABG O2 Saturation 97.3 ABG Base Excess -1.2 VBG pH VBG pCO2 VBG HCO3 VBG Base Excess FiO2 40% Sodium Potassium Chloride Carbon Dioxide Anion Gap BUN Creatinine Est GFR ( Amer) Est GFR (Non-Af Amer) Glucose Lactic Acid 3.8 H Calcium Phosphorus Magnesium Total Bilirubin AST ALT Alkaline Phosphatase Total Protein Albumin 12/01/17 05:30 WBC RBC Hgb Hct MCV MCH MCHC RDW Plt Count Seg Neutrophils % Lymphocytes % Monocytes % Eosinophils % Basophils % Absolute Neutrophils Absolute Lymphocytes Absolute Monocytes Absolute Eosinophils Absolute Basophils Carbonic Acid HCO3/H2CO3 Ratio ABG pH ABG pCO2 ABG pO2 ABG HCO3 ABG O2 Saturation ABG Base Excess VBG pH VBG pCO2 VBG HCO3 VBG Base Excess FiO2 Sodium 125.4 L Potassium 2.7 L* Chloride 91 L Carbon Dioxide 22 Anion Gap 12 BUN 11 Creatinine 0.60 Est GFR ( Amer) > 60 Est GFR (Non-Af Amer) > 60 Glucose 99 Lactic Acid Calcium 8.2 L Phosphorus 2.4 L Magnesium 1.3 L Total Bilirubin 3.7 H AST 52 H ALT 23 Alkaline Phosphatase 53 Total Protein 5.5 L Albumin 2.5 L 11/29/17 11/29/17 11/29/17 03:51 03:51 10:30 Creatine Kinase 69 65 CK-MB (CK-2) 1.09 Troponin I < 0.012 NT-Pro-B Natriuret Pep 1040 H 11/29/17 11/29/17 10:30 10:30 Creatine Kinase Cancelled CK-MB (CK-2) 1.51 Troponin I < 0.012 NT-Pro-B Natriuret Pep Impressions: Chest/Abdomen CTA 11/28/17 21:03 IMPRESSION: Multiple areas of new consolidation in the posterior aspect of the right lung. New small right pleural effusion. New Small amount of perihepatic ascites and edematous appearance of the gallbladder. No emboli visualized in the main pulmonary arteries or the segmental branches. Abdomen Ultrasound 11/28/17 22:42 IMPRESSION: Small nonspecific gallbladder wall thickening/pericholecystic fluid. Else, unremarkable. Head CT 11/29/17 00:00 IMPRESSION: No acute intracranial changes Air-fluid level left maxillary sinus from sinusitis EVIDENCE OF ACUTE STROKE: NO. KUB X-Ray 11/29/17 00:00 IMPRESSION: NG tube placement as described. Knee X-Ray 11/29/17 00:00 IMPRESSION: Old fractures of the proximal tibia and fibula with internal fixation of the tibial fracture. There is no acute abnormality. Tibia/Fibula X-Ray 11/29/17 00:00 IMPRESSION: No acute finding is present in the left tibia or fibula. Chest X-Ray 12/01/17 06:00 IMPRESSION: 1. Interval increase in right pleural effusion and right lung airspace opacity. Assessment & Plan - Diagnosis (1) Severe sepsis Is this a current diagnosis for this admission?: Yes Plan: Continues to require multiple vasopressors (2) Acute hypoxemic respiratory failure Is this a current diagnosis for this admission?: Yes Plan: Improving (3) Alcohol withdrawal Qualifiers: Complication of substance-induced condition: with delirium Qualified Code(s ): F10.231 - Alcohol dependence with withdrawal delirium Is this a current diagnosis for this admission?: Yes (4) Chronic obstructive pulmonary disease (COPD) Qualifiers: COPD type: unspecified COPD Qualified Code(s): J44.9 - Chronic obstructive pulmonary disease, unspecified Is this a current diagnosis for this admission?: Yes Plan: duoneb prn xopenex - Time Total Critical Time (Minutes): 40
--- NOTE | 2017-12-02 11:43 | PDOC PROGRESS REPORT ---
Subjective Progress Note for:: 12/02/17 Subjective:: Intubated and sedated Reason For Visit: PNEUMONIA.ALCHOLISM,H/O ALCOHOL WITHDRAWAL Physical Exam Vital Signs: Temp Pulse Resp BP Pulse Ox 98.8 F 101 H 16 132/90 H 97 12/02/17 05:48 12/02/17 01:44 12/02/17 06:01 12/02/17 06:00 12/02/17 06:01 Intake & Output 12/01/17 12/02/17 12/03/17 06:59 06:59 06:59 Intake Total 5029 6743 Output Total 4380 2490 Balance 649 4253 Weight 73.6 kg 77.1 kg General appearance: PRESENT: no acute distress, well-developed, well-nourished. ABSENT: cooperative Head exam: PRESENT: atraumatic, normocephalic Eye exam: PRESENT: conjunctiva pale. ABSENT: EOMI, nystagmus, periorbital swelling, scleral icterus Mouth exam: PRESENT: dry mucosa, neck supple, tongue midline, other - ET tube in place Neck exam: ABSENT: carotid bruit, JVD, lymphadenopathy, thyromegaly, tracheal deviation, tracheostomy Respiratory exam: PRESENT: decreased breath sounds, prolonged expiratory phas, rales, rhonchi, unlabored. ABSENT: retraction, tachypnea Cardiovascular exam: PRESENT: RRR, +S1, +S2 Pulses: PRESENT: normal radial pulses GI/Abdominal exam: PRESENT: diminished bowel sounds, soft Extremities exam: ABSENT: calf tenderness, clubbing, joint swelling Musculoskeletal exam: ABSENT: deformity, dislocation Neurological exam: ABSENT: awake, oriented to person Skin exam: PRESENT: dry, warm Results Laboratory Results: 12/02/17 05:25 12/02/17 05:25 12/01/17 12/01/17 12/01/17 11:11 13:16 13:16 WBC RBC Hgb Hct MCV MCH MCHC RDW Plt Count Seg Neutrophils % Lymphocytes % Monocytes % Eosinophils % Basophils % Absolute Neutrophils Absolute Lymphocytes Absolute Monocytes Absolute Eosinophils Absolute Basophils Carbonic Acid HCO3/H2CO3 Ratio ABG pH ABG pCO2 ABG pO2 ABG HCO3 ABG O2 Saturation ABG Base Excess FiO2 Sodium 122.8 L Potassium 4.2 D Chloride 92 L Carbon Dioxide 20 L Anion Gap 11 BUN 12 Creatinine 0.67 Est GFR ( Amer) > 60 Est GFR (Non-Af Amer) > 60 Glucose 112 H Lactic Acid 2.4 H Calcium 8.1 L Phosphorus Magnesium 1.6 Total Bilirubin AST ALT Alkaline Phosphatase Total Protein Albumin Blood Type B POSITIVE 12/01/17 12/02/17 12/02/17 15:00 05:25 05:25 WBC 6.9 RBC 1.86 L Hgb 7.6 L Hct 21.2 L MCV 114 H MCH 40.6 H MCHC 35.7 RDW 16.7 H Plt Count 53 L Seg Neutrophils % Not Reportable Lymphocytes % Not Reportable Monocytes % Not Reportable Eosinophils % Not Reportable Basophils % Not Reportable Absolute Neutrophils Not Reportable Absolute Lymphocytes Not Reportable Absolute Monocytes Not Reportable Absolute Eosinophils Not Reportable Absolute Basophils Not Reportable Carbonic Acid 0.95 L HCO3/H2CO3 Ratio 24:1 ABG pH 7.48 H ABG pCO2 31.4 L ABG pO2 74.3 L ABG HCO3 22.8 ABG O2 Saturation 96.0 ABG Base Excess -1.1 FiO2 40% Sodium Potassium Chloride Carbon Dioxide Anion Gap BUN Creatinine Est GFR ( Amer) Est GFR (Non-Af Amer) Glucose Lactic Acid 2.4 H Calcium Phosphorus Magnesium Total Bilirubin AST ALT Alkaline Phosphatase Total Protein Albumin Blood Type 12/02/17 05:25 WBC RBC Hgb Hct MCV MCH MCHC RDW Plt Count Seg Neutrophils % Lymphocytes % Monocytes % Eosinophils % Basophils % Absolute Neutrophils Absolute Lymphocytes Absolute Monocytes Absolute Eosinophils Absolute Basophils Carbonic Acid HCO3/H2CO3 Ratio ABG pH ABG pCO2 ABG pO2 ABG HCO3 ABG O2 Saturation ABG Base Excess FiO2 Sodium 124.8 L Potassium 3.4 L Chloride 92 L Carbon Dioxide 21 L Anion Gap 12 BUN 11 Creatinine 0.70 Est GFR ( Amer) > 60 Est GFR (Non-Af Amer) > 60 Glucose 117 H Lactic Acid Calcium 8.3 L Phosphorus 2.7 Magnesium 1.5 L Total Bilirubin 4.0 H AST 61 H ALT 27 Alkaline Phosphatase 88 Total Protein 5.5 L Albumin 2.5 L Blood Type 11/29/17 09:45 Tracheal Aspirate Gram Stain - Final 11/29/17 09:45 Tracheal Aspirate Sputum Culture - Final NORMAL CASEY 11/29/17 11/29/17 11/29/17 03:51 03:51 10:30 Creatine Kinase 69 65 CK-MB (CK-2) 1.09 Troponin I < 0.012 NT-Pro-B Natriuret Pep 1040 H 11/29/17 11/29/17 10:30 10:30 Creatine Kinase Cancelled CK-MB (CK-2) 1.51 Troponin I < 0.012 NT-Pro-B Natriuret Pep Impressions: Chest/Abdomen CTA 11/28/17 21:03 IMPRESSION: Multiple areas of new consolidation in the posterior aspect of the right lung. New small right pleural effusion. New Small amount of perihepatic ascites and edematous appearance of the gallbladder. No emboli visualized in the main pulmonary arteries or the segmental branches. Abdomen Ultrasound 11/28/17 22:42 IMPRESSION: Small nonspecific gallbladder wall thickening/pericholecystic fluid. Else, unremarkable. Head CT 11/29/17 00:00 IMPRESSION: No acute intracranial changes Air-fluid level left maxillary sinus from sinusitis EVIDENCE OF ACUTE STROKE: NO. KUB X-Ray 11/29/17 00:00 IMPRESSION: NG tube placement as described. Knee X-Ray 11/29/17 00:00 IMPRESSION: Old fractures of the proximal tibia and fibula with internal fixation of the tibial fracture. There is no acute abnormality. Tibia/Fibula X-Ray 11/29/17 00:00 IMPRESSION: No acute finding is present in the left tibia or fibula. Chest X-Ray 12/02/17 06:00 IMPRESSION: 1. Interval increase in right pleural effusion and right lung airspace opacity. 2. Interval increase in linear left basilar opacities which may be related to subsegmental atelectasis. Assessment & Plan - Diagnosis (1) Severe sepsis Is this a current diagnosis for this admission?: Yes Plan: Continues to require multiple vasopressors (2) Acute hypoxemic respiratory failure Is this a current diagnosis for this admission?: Yes Plan: Labs- All tests 24 hr 12/02/17 05:25 ABG pH 7.48 H ABG pCO2 31.4 L ABG pO2 74.3 L FiO2 40% (3) Alcohol withdrawal Qualifiers: Complication of substance-induced condition: with delirium Qualified Code(s ): F10.231 - Alcohol dependence with withdrawal delirium Is this a current diagnosis for this admission?: Yes (4) Chronic obstructive pulmonary disease (COPD) Qualifiers: COPD type: unspecified COPD Qualified Code(s): J44.9 - Chronic obstructive pulmonary disease, unspecified Is this a current diagnosis for this admission?: Yes Plan: duoneb prn xopenex (5) Thrombocytopenia Is this a current diagnosis for this admission?: Yes Plan: Labs- All tests 24 hr 11/28/17 11/29/17 11/30/17 20:50 10:30 06:00 Hgb 11.2 L 9.0 L D 8.7 L Plt Count 83 L 65 L 63 L 12/01/17 12/02/17 05:30 05:25 Hgb 8.3 L 7.6 L Plt Count 65 L 53 L (6) Pleural effusion Is this a current diagnosis for this admission?: Yes Plan: Increasing in size unable to tap at this point to negatively trending platelets - Time Total Critical Time (Minutes): 40
[2017-12-02] MEDS: POTASSIUM CHLORIDE 20 MEQ/50 ML RTU IV SCH ×2 (12:23→14:31)
[2017-12-02] MEDS: NORMAL SALINE 1000 ML 1,000 ML with MAGNESIUM SULFATE 8 MEQ, THIAMINE HCL 100 MG, MVI, ... IV SCH ×5 (19:37)
--- NOTE | 2017-12-02 20:14 | PDOC PROGRESS REPORT ---
Subjective Progress Note for:: 12/02/17 Subjective:: Patient is sedated on mechanical ventilation Reason For Visit: PNEUMONIA.ALCHOLISM,H/O ALCOHOL WITHDRAWAL Physical Exam Vital Signs: Temp Pulse Resp BP Pulse Ox 99.9 F 102 H 19 100/76 98 12/02/17 19:27 12/02/17 18:18 12/02/17 18:46 12/02/17 18:46 12/02/17 18:46 Intake & Output 12/01/17 12/02/17 12/03/17 06:59 06:59 06:59 Intake Total 5029 6743 3241 Output Total 4380 2490 1200 Balance 649 4253 2041 Weight 73.6 kg 77.1 kg General appearance: PRESENT: other - Sedated on mechanical ventilation Eye exam: PRESENT: scleral icterus Respiratory exam: PRESENT: decreased breath sounds Cardiovascular exam: PRESENT: +S1, +S2 GI/Abdominal exam: PRESENT: soft Results Laboratory Results: 12/02/17 05:25 12/02/17 05:25 12/01/17 12/02/17 12/02/17 13:16 05:25 05:25 WBC 6.9 RBC 1.86 L Hgb 7.6 L Hct 21.2 L MCV 114 H MCH 40.6 H MCHC 35.7 RDW 16.7 H Plt Count 53 L Seg Neutrophils % Not Reportable Lymphocytes % Not Reportable Monocytes % Not Reportable Eosinophils % Not Reportable Basophils % Not Reportable Absolute Neutrophils Not Reportable Absolute Lymphocytes Not Reportable Absolute Monocytes Not Reportable Absolute Eosinophils Not Reportable Absolute Basophils Not Reportable Carbonic Acid 0.95 L HCO3/H2CO3 Ratio 24:1 ABG pH 7.48 H ABG pCO2 31.4 L ABG pO2 74.3 L ABG HCO3 22.8 ABG O2 Saturation 96.0 ABG Base Excess -1.1 FiO2 40% Sodium Potassium Chloride Carbon Dioxide Anion Gap BUN Creatinine Est GFR ( Amer) Est GFR (Non-Af Amer) Glucose Lactic Acid Calcium Phosphorus Magnesium Total Bilirubin AST ALT Alkaline Phosphatase Total Protein Albumin Blood Type B POSITIVE Antibody Screen NEGATIVE 12/02/17 12/02/17 05:25 09:31 WBC RBC Hgb Hct MCV MCH MCHC RDW Plt Count Seg Neutrophils % Lymphocytes % Monocytes % Eosinophils % Basophils % Absolute Neutrophils Absolute Lymphocytes Absolute Monocytes Absolute Eosinophils Absolute Basophils Carbonic Acid HCO3/H2CO3 Ratio ABG pH ABG pCO2 ABG pO2 ABG HCO3 ABG O2 Saturation ABG Base Excess FiO2 Sodium 124.8 L Potassium 3.4 L Chloride 92 L Carbon Dioxide 21 L Anion Gap 12 BUN 11 Creatinine 0.70 Est GFR ( Amer) > 60 Est GFR (Non-Af Amer) > 60 Glucose 117 H Lactic Acid 1.9 Calcium 8.3 L Phosphorus 2.7 Magnesium 1.5 L Total Bilirubin 4.0 H AST 61 H ALT 27 Alkaline Phosphatase 88 Total Protein 5.5 L Albumin 2.5 L Blood Type Antibody Screen 11/29/17 02:19 Ybarra Catheter Urine Culture - Final Enterococcus Faecalis(Group D) 11/29/17 11/29/17 11/29/17 03:51 03:51 10:30 Creatine Kinase 69 65 CK-MB (CK-2) 1.09 Troponin I < 0.012 NT-Pro-B Natriuret Pep 1040 H 11/29/17 11/29/17 10:30 10:30 Creatine Kinase Cancelled CK-MB (CK-2) 1.51 Troponin I < 0.012 NT-Pro-B Natriuret Pep Impressions: Chest/Abdomen CTA 11/28/17 21:03 IMPRESSION: Multiple areas of new consolidation in the posterior aspect of the right lung. New small right pleural effusion. New Small amount of perihepatic ascites and edematous appearance of the gallbladder. No emboli visualized in the main pulmonary arteries or the segmental branches. Abdomen Ultrasound 11/28/17 22:42 IMPRESSION: Small nonspecific gallbladder wall thickening/pericholecystic fluid. Else, unremarkable. Head CT 11/29/17 00:00 IMPRESSION: No acute intracranial changes Air-fluid level left maxillary sinus from sinusitis EVIDENCE OF ACUTE STROKE: NO. KUB X-Ray 11/29/17 00:00 IMPRESSION: NG tube placement as described. Knee X-Ray 11/29/17 00:00 IMPRESSION: Old fractures of the proximal tibia and fibula with internal fixation of the tibial fracture. There is no acute abnormality. Tibia/Fibula X-Ray 11/29/17 00:00 IMPRESSION: No acute finding is present in the left tibia or fibula. Chest X-Ray 12/02/17 06:00 IMPRESSION: 1. Interval increase in right pleural effusion and right lung airspace opacity. 2. Interval increase in linear left basilar opacities which may be related to subsegmental atelectasis. Assessment & Plan - Diagnosis (1) Acute hypoxemic respiratory failure Is this a current diagnosis for this admission?: Yes Plan: She continues to require mechanical ventilation, pulmonary following (2) Pneumonia involving right lung Qualifiers: Pneumonia type: due to unspecified organism Lung location: unspecified part of lung Qualified Code(s): J18.9 - Pneumonia, unspecified organism Is this a current diagnosis for this admission?: Yes (3) Septic shock Is this a current diagnosis for this admission?: Yes (4) Alcoholism Is this a current diagnosis for this admission?: Yes (5) Hypokalemia Is this a current diagnosis for this admission?: Yes Plan: Replace potassium most likely secondary to transcellular shift (6) Hypomagnesemia Is this a current diagnosis for this admission?: Yes Plan: Replace magnesium (7) Thrombocytopenia Is this a current diagnosis for this admission?: Yes Plan: Status post platelet transfusion (8) Septicemia due to Streptococcus pneumonia Is this a current diagnosis for this admission?: Yes Plan: Continue clindamycin (9) Hyponatremia Is this a current diagnosis for this admission?: Yes (10) Hypomagnesemia Is this a current diagnosis for this admission?: Yes (11) Hyperbilirubinemia Is this a current diagnosis for this admission?: Yes (12) Alcoholic liver disease Is this a current diagnosis for this admission?: Yes (13) Parapneumonic effusion Is this a current diagnosis for this admission?: Yes Plan: There is increase in the right parapneumonic effusion, thoracentesis is indicated but for the severe thrombocytopenia, status post platelet transfusion (14) Anemia Qualifiers: Anemia type: unspecified type Qualified Code(s): D64.9 - Anemia, unspecified Is this a current diagnosis for this admission?: Yes Plan: Transfuse packed red blood cells
[2017-12-02 20:37] LABS: HEMATOCRIT 29.1 % (36.0-47.0); MEAN CORPUSCULAR HEMOGLOBIN 35.9 pg (27.0-33.4); RED BLOOD COUNT 2.84 10^6/uL (3.72-5.28); WHITE BLOOD COUNT 6.2 10^3/uL (4.0-10.5)
[2017-12-02 20:38] LABS: HEMOGLOBIN 10.2 g/dL (12.0-15.5); MEAN CORPUSCULAR VOLUME 103 fl (80-97)
[2017-12-02 20:39] LABS: PLATELET COUNT 53 10^3/uL (150-450)
[2017-12-02 20:47] LABS: ALANINE AMINOTRANSFERASE 26 U/L (9-52); ALBUMIN 2.7 g/dL (3.5-5.0); ALKALINE PHOSPHATASE 102 U/L (38-126); ASPARTATE AMINO TRANSFERASE 73 U/L (14-36); BILIRUBIN,DIRECT 3.8 mg/dL (0.0-0.4); BILIRUBIN,TOTAL 4.4 mg/dL (0.2-1.3); BLOOD UREA NITROGEN 11 mg/dL (7-20); CALCIUM 8.5 mg/dL (8.4-10.2); CARBON DIOXIDE 21 mmol/L (22-30); CHLORIDE 91 mmol/L (98-107); GLUCOSE 121 mg/dL (75-110); TOTAL PROTEIN 5.7 g/dL (6.3-8.2)
[2017-12-02 20:58] LABS: ANION GAP 8 (5-19)
[2017-12-02 21:07] LABS: ABSOLUTE LYMPHOCYTES# (MANUAL) 0.6 10^3/uL (0.5-4.7); ABSOLUTE MONOCYTES # (MANUAL) 1.1 10^3/uL (0.1-1.4); ABSOLUTE NEUTROPHILS# (MANUAL) 4.4 10^3/uL (1.7-8.2); BAND NEUTROPHILS % (MANUAL) 3 % (3-5); BASOPHILS % (MANUAL) 0 % (0-2); EOSINOPHILS % (MANUAL) 1 % (0-6); LYMPHOCYTES % (MANUAL) 10 % (13-45); MONOCYTES % (MANUAL) 18 % (3-13); SEGMENTED NEUTROPHILS % (MAN) 68 % (42-78); TOTAL CELLS COUNTED 100
[2017-12-02 21:08] LABS: ANISOCYTOSIS 3+; PLATELET COMMENT DECREASED; POIKILOCYTOSIS 1+; TOXIC GRANULATION SLIGHT
[2017-12-02 21:12] LABS: POTASSIUM 4.4 mmol/L (3.6-5.0)
[2017-12-02 21:13] LABS: SODIUM 120.4 mmol/L (137-145)
[2017-12-03] MEDS: IPRATROPIUM/ALBUTEROL 0.5-2.5 MG/3 ML AMPUL NEB SCH ×4 (02:02→20:15)
[2017-12-03] MEDS: CLINDAMYCIN 600 MG/D5W RTU 600 MG/50 ML RTUPB IV SCH ×3 (02:38→17:06)
[2017-12-03] MEDS: LORAZEPAM 24 MG/ D5W 240 ML IV PRN ×3 (02:39→19:30)
[2017-12-03] MEDS: PROPOFOL 100 ML IV PRN ×5 (02:39→20:36)
[2017-12-03] MEDS: NORMAL SALINE 1000 ML 1,000 ML IV PRN ×2 (02:40→19:48)
[2017-12-03 05:39] LABS: HEMATOCRIT 29.3 % (36.0-47.0); HEMOGLOBIN 10.3 g/dL (12.0-15.5); MEAN CORPUSCULAR HGB CONC 35.1 g/dL (32.0-36.0); MEAN CORPUSCULAR VOLUME 103 fl (80-97); RED BLOOD COUNT 2.86 10^6/uL (3.72-5.28); RED CELL DISTRIBUTION WIDTH 25.5 % (11.5-14.0); WHITE BLOOD COUNT 6.9 10^3/uL (4.0-10.5)
[2017-12-03 05:44] LABS: ANION GAP 12 (5-19); BLOOD UREA NITROGEN 11 mg/dL (7-20); CALCIUM 8.3 mg/dL (8.4-10.2); CARBON DIOXIDE 18 mmol/L (22-30); CHLORIDE 92 mmol/L (98-107); GLUCOSE 111 mg/dL (75-110); POTASSIUM 4.2 mmol/L (3.6-5.0); SODIUM 122.4 mmol/L (137-145)
[2017-12-03 05:47] LABS: ARTERIAL BLOOD H2CO3 0.87 mmol/L (1.05-1.35); ARTERIAL BLOOD HCO3 18.4 mmol/L (20-26); ARTERIAL BLOOD O2 SATURATION 93.9 % (94-98); ARTERIAL BLOOD PH 7.42 (7.35-7.45); ARTERIAL BLOOD PO2 66.5 mmHg (80-100); ARTERIAL BLOOD TOTAL CO2 19.3 mmol/L (21-25)
[2017-12-03 05:48] LABS: ARTERIAL BLOOD FIO2 40%
--- NOTE | 2017-12-03 06:09 | RADIOLOGY REPORT (SQ) ---
EXAM DESCRIPTION: CHEST SINGLE VIEW CLINICAL HISTORY: pna/resp failure. Intubated patient. COMPARISON: 12/02/2017 FINDINGS: Single frontal view of the chest. Endotracheal tube with tip 5 cm above the jana. NG tube with tip below the diaphragm. Right IJ central venous catheter tip in the high right atrium. Interval increase in interstitial and basilar opacities in the left lung. Low lung volumes. Cardiomediastinal silhouette is stable. Interval increase in right pleural effusion and right lung interstitial and alveolar opacities. No pneumothorax identified. Leads overlie the chest. No acute osseous abnormalities. Upper abdominal soft tissues are unremarkable. IMPRESSION: 1. Interval increase in right pleural effusion and right lung airspace opacity. 2. Interval increase in left basilar opacities. Electronically signed by: Santiago Philip 12/03/2017 5:07 AM CDT
[2017-12-03 06:22] LABS: PLATELET COUNT 50 10^3/uL (150-450)
[2017-12-03 06:28] LABS: ABSOLUTE LYMPHOCYTES# (MANUAL) 0.8 10^3/uL (0.5-4.7); ABSOLUTE MONOCYTES # (MANUAL) 1.2 10^3/uL (0.1-1.4); ABSOLUTE NEUTROPHILS# (MANUAL) 4.9 10^3/uL (1.7-8.2); BASOPHILS % (MANUAL) 0 % (0-2); EOSINOPHILS % (MANUAL) 0 % (0-6); LYMPHOCYTES % (MANUAL) 12 % (13-45); METAMYELOCYTES % (MANUAL) 1 % (0); MONOCYTES % (MANUAL) 17 % (3-13); SEGMENTED NEUTROPHILS % (MAN) 70 % (42-78); TOTAL CELLS COUNTED 100
[2017-12-03 06:33] LABS: ANISOCYTOSIS 3+; HYPOCHROMASIA SLIGHT; OVALOCYTES SLIGHT; PLATELET COMMENT DECREASED; PLATELET GIANT PRESENT; PLATELET LARGE PRESENT; TARGET CELLS SLIGHT; TOXIC GRANULATION 1+
[2017-12-03 06:34] LABS: POIKILOCYTOSIS SLIGHT
--- NOTE | 2017-12-03 17:43 | PDOC TRANSFER SUMMARY ---
General Admission Date/PCP: 11/29/17 01:39 ABNER WILKINS MD Admission Date: 11/29/17 Accepting Facility: [facility] Resuscitation Status: Full Code - Transfer Diagnosis (1) Acute hypoxemic respiratory failure Is this a current diagnosis for this admission?: Yes (2) Pneumonia involving right lung Is this a current diagnosis for this admission?: Yes (3) Septic shock Is this a current diagnosis for this admission?: Yes (4) Alcoholism Is this a current diagnosis for this admission?: Yes (5) Hypokalemia Is this a current diagnosis for this admission?: Yes (6) Hypomagnesemia Is this a current diagnosis for this admission?: Yes (7) Thrombocytopenia Is this a current diagnosis for this admission?: Yes (8) Septicemia due to Streptococcus pneumonia Is this a current diagnosis for this admission?: Yes (9) Hyponatremia Is this a current diagnosis for this admission?: Yes (10) Hypomagnesemia Is this a current diagnosis for this admission?: Yes (11) Hyperbilirubinemia Is this a current diagnosis for this admission?: Yes (12) Alcoholic liver disease Is this a current diagnosis for this admission?: Yes (13) Parapneumonic effusion Is this a current diagnosis for this admission?: Yes (14) Anemia Is this a current diagnosis for this admission?: Yes - Transfer Medications Home Medications: Megestrol Acetate 20 ml PO DAILY 11/29/17 Omeprazole 20 mg PO DAILY 11/29/17 Transfer Medications: Current Medications Albuterol/Ipratropium (Duoneb 3 Ml Ampul) 3 ml NEB RTQ6 [facility] Stop: 12/29/17 13:59 Last Admin: 12/03/17 13:39 Dose: 3 ml Heparin Sodium (Porcine) (Heparin Flush 10 Unit/Ml 5 Ml Disp.Syrg) 30 unit IV .AFTER EACH USE PRN PRN Reason: AFTER EACH INTERMITTENT USE Stop: 12/29/17 10:40 Heparin Sodium (Porcine) (Heparin Flush 10 Unit/Ml 5 Ml Disp.Syrg) 30 unit IV Q8 [facility] Stop: 12/29/17 13:59 Last Admin: 12/03/17 14:08 Dose: Not Given Sodium Chloride (Nacl 0.9% 1000 Ml Iv Soln) 1,000 mls @ 75 mls/hr IV CONTINUOUS PRN PRN Reason: THIS MED IS NOT "PRN" Stop: 12/29/17 01:26 Last Admin: 12/03/17 02:40 Dose: 1,000 ml Clindamycin Phosphate/Dextrose (Cleocin Rtu 600 Mg/D5w 50 Ml Premix) 600 mg in 50 mls @ 50 mls/hr IV Q8A [facility] Stop: 12/06/17 09:59 Last Admin: 12/03/17 17:06 Dose: 50 ml Propofol (Diprivan Rtu 1000 Mg/100 Ml Inf.Bottle) 100 mls @ 0 mls/hr IV CONTINUOUS PRN; Protocol; Titrate PRN Reason: THIS MED IS NOT "PRN" Stop: 12/29/17 10:24 Last Admin: 12/03/17 16:09 Dose: 100 ml Lorazepam (Ativan Iv Infusion 24 Mg/240 Ml Bag) 24 mg in 240 mls @ 0 mls/hr IV CONTINUOUS PRN; Protocol; Titrate PRN Reason: THIS MED IS NOT "PRN" Stop: 12/06/17 10:31 Last Admin: 12/03/17 12:30 Dose: 240 ml Vasopressin 100 unit/ Dextrose 250 mls @ 0 mls/hr IV CONTINUOUS PRN; Protocol; Titrate PRN Reason: THIS MED IS NOT "PRN" Stop: 12/29/17 13:02 Last Admin: 12/01/17 04:53 Dose: 100 unit Hard Fat/Phenylephrine 40 mg/ (Dextrose) 250 mls @ 0 mls/hr IV CONTINUOUS PRN; Protocol; Titrate PRN Reason: THIS MED IS NOT "PRN" Stop: 12/29/17 13:02 Last Admin: 12/02/17 05:35 Dose: 40 mg Magnesium Sulfate 8 meq/Thiamine HCl 100 mg/Multivitamins/Minerals 10 ml/Folic Acid 1 mg/ Sodium Chloride 1,013.2 mls @ 0 mls/hr IV DAILY@1999 [facility] Stop: 12/31/17 19:59 Last Admin: 12/02/17 19:37 Dose: 8 meq Levalbuterol HCl (Xopenex Neb 1.25 Mg/3 Ml Ampul) 1.25 mg NEB [id number] PRN PRN Reason: FOR WHEEZING Stop: 12/29/17 10:37 Potassium Chloride (Kaon-Cl 20 Meq/15 Ml Udcup) 20 meq PO Q12 [facility] Stop: 12/31/17 09:59 Last Admin: 12/01/17 10:35 Dose: Not Given Sodium Chloride (Saline Flush 2.5 Ml Monoject Prefil Syrin) 2.5 ml IV Q8 [facility] Stop: 12/29/17 05:59 Last Admin: 12/03/17 14:08 Dose: Not Given Sodium Chloride (Nacl 0.9% Inj/Pf 10 Ml Sdv) 10 ml IV .AFTER EACH USE PRN PRN Reason: AFTER EACH INTERMITTENT USE Stop: 12/29/17 10:40 - Allergies Allergies/Adverse Reactions: No Known Allergies Allergy (Verified 04/25/17 18:37) Hospital Course Hospital Course: Patient 52-year-old female with history of alcohol dependence, COPD non-Hodgkin' s lymphoma in remission she could emergency room on 11/29/2017 for evaluation of cough, shortness of breath and generalized weakness. In the emergency room she was evaluated she was found to be acutely ill tremulous, CTA chest was done in the ER, it showed new moderate airspace opacities in the right lower lobe, increased opacity in the right upper lobe there was no pulmonary embolus the respiration was initially supported with noninvasive positive pressure ventilation BiPAP she was admitted in step down unit, she decompensated was transferred to ICU intubated on medical ventilation found to have a low blood pressure requiring Levophed and vasopressin. She was seen by pulmonary Dr. Villalpando, she has a large right parapneumonic effusion attempt to do thoracentesis was not successful because of severe thrombocytopenia. She has alcohol liver cirrhosis/liver disease, she is an alcoholic she had a history of alcohol withdrawal syndrome, she was treated with lorazepam drip in anticipation of alcohol withdrawal syndrome. The blood culture grew Streptococcus pneumonia sensitive to clindamycin and other antibiotic, she was initially empirically treated with IV clindamycin, cefepime and vancomycin when the blood culture results came back she was taken off cefepime and vancomycin she was continued on clindamycin that also with cover anaerobes and some other MRSA. . She also have electrolyte derangement that were replenished including hypokalemia, hypomagnesemia she also was transfused with packed red blood cells. Family was requesting transfer to tertiary care because patient is not improving, call was made to [facility] and she was accepted in transfer Physical Exam Vital Signs: Temp Pulse Resp BP Pulse Ox 99.0 F 97 20 123/90 H 97 12/03/17 06:00 12/03/17 13:39 12/03/17 16:57 12/03/17 16:57 12/03/17 16:57 Intake & Output 12/02/17 12/03/17 12/04/17 06:59 06:59 06:59 Intake Total 6743 5121 1659 Output Total 2490 1725 860 Balance 4253 3396 799 Weight 77.1 kg 80.8 kg 80.8 kg General appearance: PRESENT: other - On medical ventilation sedated Respiratory exam: PRESENT: decreased breath sounds Cardiovascular exam: PRESENT: +S1, +S2 Results Laboratory Results: 12/03/17 05:15 12/03/17 05:15 12/02/17 12/02/17 12/03/17 20:05 20:05 05:15 WBC 6.2 RBC 2.84 L Hgb 10.2 L D Hct 29.1 L MCV 103 H D MCH 35.9 H MCHC 35.0 RDW 25.0 H Plt Count 53 L Seg Neutrophils % Not Reportable Lymphocytes % Not Reportable Monocytes % Not Reportable Eosinophils % Not Reportable Basophils % Not Reportable Absolute Neutrophils Not Reportable Absolute Lymphocytes Not Reportable Absolute Monocytes Not Reportable Absolute Eosinophils Not Reportable Absolute Basophils Not Reportable Carbonic Acid Cancelled HCO3/H2CO3 Ratio Cancelled ABG pH Cancelled ABG pCO2 Cancelled ABG pO2 Cancelled ABG HCO3 Cancelled ABG O2 Saturation Cancelled ABG Base Excess Cancelled FiO2 Cancelled Sodium 120.4 L* Potassium 4.4 D Chloride 91 L Carbon Dioxide 21 L Anion Gap 8 BUN 11 Creatinine 0.74 Est GFR ( Amer) > 60 Est GFR (Non-Af Amer) > 60 Glucose 121 H Calcium 8.5 Magnesium 1.5 L Total Bilirubin 4.4 H AST 73 H ALT 26 Alkaline Phosphatase 102 Total Protein 5.7 L Albumin 2.7 L 12/03/17 12/03/17 12/03/17 05:15 05:15 05:40 WBC 6.9 RBC 2.86 L Hgb 10.3 L Hct 29.3 L MCV 103 H MCH 36.0 H MCHC 35.1 RDW 25.5 H Plt Count 50 L Seg Neutrophils % Not Reportable Lymphocytes % Not Reportable Monocytes % Not Reportable Eosinophils % Not Reportable Basophils % Not Reportable Absolute Neutrophils Not Reportable Absolute Lymphocytes Not Reportable Absolute Monocytes Not Reportable Absolute Eosinophils Not Reportable Absolute Basophils Not Reportable Carbonic Acid 0.87 L HCO3/H2CO3 Ratio 21:1 ABG pH 7.42 ABG pCO2 29.0 L ABG pO2 66.5 L ABG HCO3 18.4 L ABG O2 Saturation 93.9 L ABG Base Excess -5.0 FiO2 40% Sodium 122.4 L Potassium 4.2 Chloride 92 L Carbon Dioxide 18 L Anion Gap 12 BUN 11 Creatinine 0.68 Est GFR ( Amer) > 60 Est GFR (Non-Af Amer) > 60 Glucose 111 H Calcium 8.3 L Magnesium 1.6 Total Bilirubin AST ALT Alkaline Phosphatase Total Protein Albumin 11/29/17 11/29/17 11/29/17 03:51 03:51 10:30 Creatine Kinase 69 65 CK-MB (CK-2) 1.09 Troponin I < 0.012 NT-Pro-B Natriuret Pep 1040 H 11/29/17 11/29/17 10:30 10:30 Creatine Kinase Cancelled CK-MB (CK-2) 1.51 Troponin I < 0.012 NT-Pro-B Natriuret Pep Impressions: Chest/Abdomen CTA 11/28/17 21:03 IMPRESSION: Multiple areas of new consolidation in the posterior aspect of the right lung. New small right pleural effusion. New Small amount of perihepatic ascites and edematous appearance of the gallbladder. No emboli visualized in the main pulmonary arteries or the segmental branches. Abdomen Ultrasound 11/28/17 22:42 IMPRESSION: Small nonspecific gallbladder wall thickening/pericholecystic fluid. Else, unremarkable. Head CT 11/29/17 00:00 IMPRESSION: No acute intracranial changes Air-fluid level left maxillary sinus from sinusitis EVIDENCE OF ACUTE STROKE: NO. KUB X-Ray 11/29/17 00:00 IMPRESSION: NG tube placement as described. Knee X-Ray 11/29/17 00:00 IMPRESSION: Old fractures of the proximal tibia and fibula with internal fixation of the tibial fracture. There is no acute abnormality. Tibia/Fibula X-Ray 11/29/17 00:00 IMPRESSION: No acute finding is present in the left tibia or fibula. Chest X-Ray 12/03/17 06:00 IMPRESSION: 1. Interval increase in right pleural effusion and right lung airspace opacity. 2. Interval increase in left basilar opacities.
[2017-12-03] MEDS: DEXTROSE 5%-WATER 250 ML with VASOPRESSIN 100 UNIT IV PRN ×2 (20:38)
[2017-12-03] MEDS: NORMAL SALINE 1000 ML 1,000 ML with MAGNESIUM SULFATE 8 MEQ, THIAMINE HCL 100 MG, MVI, ... IV SCH ×5 (20:40)
[2017-12-03] MEDS: DEXTROSE 5%-WATER 250 ML with PHENYLEPHRINE HCL 40 MG IV PRN ×2 (21:11)
[2017-12-03 21:58] VITALS: BP 114/89
--- NOTE | 2017-12-06 11:42 | PDOC PROGRESS REPORT ---
Subjective Progress Note for:: 12/03/17 Subjective:: Intubated and sedated Reason For Visit: PNEUMONIA.ALCHOLISM,H/O ALCOHOL WITHDRAWAL Physical Exam Vital Signs: Temp Pulse Resp BP Pulse Ox 99.0 F 95 22 H 134/98 H 92 12/03/17 06:00 12/03/17 08:16 12/03/17 05:31 12/03/17 05:31 12/03/17 04:46 Intake & Output 12/02/17 12/03/17 12/04/17 06:59 06:59 06:59 Intake Total 6743 5121 Output Total 2490 1725 Balance 4253 3396 Weight 77.1 kg 80.8 kg General appearance: PRESENT: no acute distress, disheveled Head exam: PRESENT: atraumatic, normocephalic Eye exam: PRESENT: conjunctiva pale. ABSENT: nystagmus, periorbital swelling, scleral icterus Mouth exam: PRESENT: dry mucosa, neck supple, tongue midline Neck exam: ABSENT: carotid bruit, JVD, lymphadenopathy, thyromegaly, tracheal deviation, tracheostomy Respiratory exam: PRESENT: decreased breath sounds, prolonged expiratory phas, rales, rhonchi, unlabored. ABSENT: retraction, stridor Cardiovascular exam: PRESENT: +S1, +S2, tachycardia Pulses: PRESENT: normal radial pulses GI/Abdominal exam: PRESENT: diminished bowel sounds, soft Gentrourinary exam: PRESENT: indwelling catheter Extremities exam: PRESENT: joint swelling. ABSENT: clubbing, full ROM Musculoskeletal exam: ABSENT: ambulatory, deformity, full ROM Neurological exam: ABSENT: awake, oriented to person Skin exam: PRESENT: dry Results Laboratory Results: 12/03/17 05:15 12/03/17 05:15 12/01/17 12/02/17 12/02/17 13:16 09:31 20:05 WBC 6.2 RBC 2.84 L Hgb 10.2 L D Hct 29.1 L MCV 103 H D MCH 35.9 H MCHC 35.0 RDW 25.0 H Plt Count 53 L Seg Neutrophils % Not Reportable Lymphocytes % Not Reportable Monocytes % Not Reportable Eosinophils % Not Reportable Basophils % Not Reportable Absolute Neutrophils Not Reportable Absolute Lymphocytes Not Reportable Absolute Monocytes Not Reportable Absolute Eosinophils Not Reportable Absolute Basophils Not Reportable Carbonic Acid HCO3/H2CO3 Ratio ABG pH ABG pCO2 ABG pO2 ABG HCO3 ABG O2 Saturation ABG Base Excess FiO2 Sodium Potassium Chloride Carbon Dioxide Anion Gap BUN Creatinine Est GFR ( Amer) Est GFR (Non-Af Amer) Glucose Lactic Acid 1.9 Calcium Magnesium Total Bilirubin AST ALT Alkaline Phosphatase Total Protein Albumin Blood Type B POSITIVE Antibody Screen NEGATIVE 12/02/17 12/03/17 12/03/17 20:05 05:15 05:15 WBC RBC Hgb Hct MCV MCH MCHC RDW Plt Count Seg Neutrophils % Lymphocytes % Monocytes % Eosinophils % Basophils % Absolute Neutrophils Absolute Lymphocytes Absolute Monocytes Absolute Eosinophils Absolute Basophils Carbonic Acid Cancelled HCO3/H2CO3 Ratio Cancelled ABG pH Cancelled ABG pCO2 Cancelled ABG pO2 Cancelled ABG HCO3 Cancelled ABG O2 Saturation Cancelled ABG Base Excess Cancelled FiO2 Cancelled Sodium 120.4 L* 122.4 L Potassium 4.4 D 4.2 Chloride 91 L 92 L Carbon Dioxide 21 L 18 L Anion Gap 8 12 BUN 11 11 Creatinine 0.74 0.68 Est GFR ( Amer) > 60 > 60 Est GFR (Non-Af Amer) > 60 > 60 Glucose 121 H 111 H Lactic Acid Calcium 8.5 8.3 L Magnesium 1.5 L 1.6 Total Bilirubin 4.4 H AST 73 H ALT 26 Alkaline Phosphatase 102 Total Protein 5.7 L Albumin 2.7 L Blood Type Antibody Screen 12/03/17 12/03/17 05:15 05:40 WBC 6.9 RBC 2.86 L Hgb 10.3 L Hct 29.3 L MCV 103 H MCH 36.0 H MCHC 35.1 RDW 25.5 H Plt Count 50 L Seg Neutrophils % Not Reportable Lymphocytes % Not Reportable Monocytes % Not Reportable Eosinophils % Not Reportable Basophils % Not Reportable Absolute Neutrophils Not Reportable Absolute Lymphocytes Not Reportable Absolute Monocytes Not Reportable Absolute Eosinophils Not Reportable Absolute Basophils Not Reportable Carbonic Acid 0.87 L HCO3/H2CO3 Ratio 21:1 ABG pH 7.42 ABG pCO2 29.0 L ABG pO2 66.5 L ABG HCO3 18.4 L ABG O2 Saturation 93.9 L ABG Base Excess -5.0 FiO2 40% Sodium Potassium Chloride Carbon Dioxide Anion Gap BUN Creatinine Est GFR ( Amer) Est GFR (Non-Af Amer) Glucose Lactic Acid Calcium Magnesium Total Bilirubin AST ALT Alkaline Phosphatase Total Protein Albumin Blood Type Antibody Screen 11/29/17 02:19 Ybarra Catheter Urine Culture - Final Enterococcus Faecalis(Group D) 11/29/17 11/29/17 11/29/17 03:51 03:51 10:30 Creatine Kinase 69 65 CK-MB (CK-2) 1.09 Troponin I < 0.012 NT-Pro-B Natriuret Pep 1040 H 11/29/17 11/29/17 10:30 10:30 Creatine Kinase Cancelled CK-MB (CK-2) 1.51 Troponin I < 0.012 NT-Pro-B Natriuret Pep Impressions: Chest/Abdomen CTA 11/28/17 21:03 IMPRESSION: Multiple areas of new consolidation in the posterior aspect of the right lung. New small right pleural effusion. New Small amount of perihepatic ascites and edematous appearance of the gallbladder. No emboli visualized in the main pulmonary arteries or the segmental branches. Abdomen Ultrasound 11/28/17 22:42 IMPRESSION: Small nonspecific gallbladder wall thickening/pericholecystic fluid. Else, unremarkable. Head CT 11/29/17 00:00 IMPRESSION: No acute intracranial changes Air-fluid level left maxillary sinus from sinusitis EVIDENCE OF ACUTE STROKE: NO. KUB X-Ray 11/29/17 00:00 IMPRESSION: NG tube placement as described. Knee X-Ray 11/29/17 00:00 IMPRESSION: Old fractures of the proximal tibia and fibula with internal fixation of the tibial fracture. There is no acute abnormality. Tibia/Fibula X-Ray 11/29/17 00:00 IMPRESSION: No acute finding is present in the left tibia or fibula. Chest X-Ray 12/03/17 06:00 IMPRESSION: 1. Interval increase in right pleural effusion and right lung airspace opacity. 2. Interval increase in left basilar opacities. Assessment & Plan - Diagnosis (1) Severe sepsis Is this a current diagnosis for this admission?: Yes Plan: Continues to require multiple vasopressors (2) Acute hypoxemic respiratory failure Is this a current diagnosis for this admission?: Yes Plan: Improving (3) Alcohol withdrawal Qualifiers: Complication of substance-induced condition: with delirium Qualified Code(s ): F10.231 - Alcohol dependence with withdrawal delirium Is this a current diagnosis for this admission?: Yes (4) Chronic obstructive pulmonary disease (COPD) Qualifiers: COPD type: unspecified COPD Qualified Code(s): J44.9 - Chronic obstructive pulmonary disease, unspecified Is this a current diagnosis for this admission?: Yes Plan: duoneb prn xopenex - Time Total Critical Time (Minutes): 60 - Plan Summary Plan Summary: Long discussion with nurse and family and the nurse and primary care physician suggested to PCP patient be transferred
== END 2017-12-03 22:00 | disposition short-term general hospital (02) | DRG 870 ==
LOC: ER 20:21 → EH 11-29 01:39 → 3N 11-29 07:55 → ICU 11-29 09:24
PROVIDERS: ADMIT Internal Medicine; ATTEND Internal Medicine
PROC: 5A1955Z Respiratory Ventilation, Greater than 96 Consecutive Hours (ICD-10-PCS; principal; 2017-11-29)
PROC: 02HV33Z Insertion of Infusion Device into Superior Vena Cava, Percutaneous Approach (ICD-10-PCS; 2017-11-29)
PROC: 3E0F73Z Introduction of Anti-inflammatory into Respiratory Tract, Via Natural or Artificial Opening (ICD-10-PCS; 2017-11-29)
PROC: 0BH17EZ Insertion of Endotracheal Airway into Trachea, Via Natural or Artificial Opening (ICD-10-PCS; 2017-11-29)
PROC: 0W993ZX Drainage of Right Pleural Cavity, Percutaneous Approach, Diagnostic (ICD-10-PCS; 2017-12-01)
PROC: 30233L1 Transfusion of Nonautologous Fresh Plasma into Peripheral Vein, Percutaneous Approach (ICD-10-PCS; 2017-12-01)
PROC: 30233R1 Transfusion of Nonautologous Platelets into Peripheral Vein, Percutaneous Approach (ICD-10-PCS; 2017-12-01)
PROC: 30233N1 Transfusion of Nonautologous Red Blood Cells into Peripheral Vein, Percutaneous Approach (ICD-10-PCS; 2017-12-02)
DX: A41.9 Sepsis, unspecified organism (principal); R65.21 Severe sepsis with septic shock; J15.4 Pneumonia due to other streptococci; J96.01 Acute respiratory failure with hypoxia; E87.1 Hypo-osmolality and hyponatremia; C85.90 Non-Hodgkin lymphoma, unspecified, unspecified site; F10.231 Alcohol dependence with withdrawal delirium; J90 Pleural effusion, not elsewhere classified; R18.8 Other ascites; J32.0 Chronic maxillary sinusitis; B95.2 Enterococcus as the cause of diseases classified elsewhere; K70.9 Alcoholic liver disease, unspecified; E87.6 Hypokalemia; E83.42 Hypomagnesemia; D69.6 Thrombocytopenia, unspecified; D64.9 Anemia, unspecified; J44.9 Chronic obstructive pulmonary disease, unspecified; R22.42 Localized swelling, mass and lump, left lower limb; F17.210 Nicotine dependence, cigarettes, uncomplicated; Z96.642 Presence of left artificial hip joint; Z90.710 Acquired absence of both cervix and uterus; Z79.899 Other long term (current) drug therapy
CPT/HCPCS: 31500; 36415; 36430; 70450; 71045; 71275; 74018; 76705; 80048; 80053; 80074; 80076; 80307; 81001; 82272; 82550; 82553; 82803; 83036; 83605; 83690; 83735; 83880; 84100; 84484; 85025; 85379; 85384; 85610; 85730; 86701; 86850; 86900; 86901; 86920; 87040; 87070; 87077; 87086; 87088; 87186; 87205; 87493; 89055; 93005; 93010; 93306; 94002; 94003; 94640; C1751; J0330; J0692; J1940; J1956; J2060; J2370; J2405; J2543; J2704; J3370; J3411; J3430; J3475; J3480; J3490; J7030; J7050; J7060; J7120; J7620; P9016; P9017; P9035; P9047; S0164

== ENCOUNTER 2017-12-11 00:27 | Inpatient (IN) | payer MEDICAID ==
[2017-12-11] MEDS ORDERED: POLYETHYLENE GLYCOL 3350 POWDER 17 GM/1 PACKET NG PRN (01:25)
[2017-12-11] MEDS ORDERED: HALOPERIDOL LACTATE INJ 5 MG/1 ML VIAL IV PRN (01:30)
[2017-12-11] MEDS: ENOXAPARIN SODIUM INJ 80 MG/0.8 ML DISP.SYRIN SUBCUT SCH ×2 (05:44→17:38)
[2017-12-11] MEDS ORDERED: FOLIC ACID 1 MG TABLET NG SCH (10:00)
[2017-12-11] MEDS ORDERED: MEGESTROL ACETATE SUSP 400 MG/10 ML UDCUP NG SCH (10:00)
[2017-12-11] MEDS ORDERED: GUAR GUM NG SCH (10:00)
[2017-12-11] MEDS ORDERED: CARVEDILOL 3.125 MG TABLET NG SCH (10:00)
[2017-12-11] MEDS: THIAMINE HCL 100 MG TABLET PO SCH (10:35)
[2017-12-11] MEDS ORDERED: POLYETHYLENE GLYCOL 3350 POWDER 17 GM/1 PACKET PO PRN (11:00)
--- NOTE | 2017-12-11 13:45 | PDOC H&P ---
History of Present Illness Admission Date/PCP: 12/11/17 00:27 ABNER WILKINS MD History of Present Illness: MAAME SAENZ is a 52 year old female,She was transferred from this hospital to [facility] on 12/03/2017 when she had septic shock associated with right lung pneumonia secondary to Streptococcus pneumonia. The blood culture was positive to Streptococcus pneumonia. She was transferred back to this hospital on 12/11/2017, the medical record was reviewed in detailed. She was extubated in [facility], she was slowly weaned off Lorazepam infusion, when she was transferred to [facility] from this hospital she was on Lorazepam infusion. She has anisocoria, proptosis of the left eye, this was evaluated in [facility], she was seen by ophthalmology, it was felt that the findings was more consistent with left fascial dependent edema due to patient positioning. Also noted was left conjunctival hemorrhage felt to be associated with history of liver cirrhosis. Before she was transferred to [facility] she was found to have a large right pleural effusion, thoracentesis was not done in this hospital because of thrombocytopenia, at [facility] this was not done either because it was felt that it was trace pleural effusion and thoracentesis was not indicated. She was also noted to have SVT felt to be secondary to sepsis she was started on Coreg she also have DVT of the right cephalic vein on the right internal jugular vein diagnosed on Doppler study, 06/2018 in the setting of left arm swelling, Lovenox was initiated because of this finding. Was seen by the bedside she was awake oriented, she has NG tube in place, the return from the NG tube was brownish colored Past Medical History Pulmonary Medical History: Reports: Chronic Obstructive Pulmonary Disease (COPD) Malignancy Medical History: Reports: Lymphoma - History of non-Hodgkin's lymphoma Psychiatric Medical History: Reports: Alcohol Dependency Hematology: Reports: Anemia Past Surgical History Past Surgical History: Reports: Section, Hysterectomy, Orthopedic Surgery - Left hip replacement, right knee, Tonsillectomy, Tubal Ligation Social History Smoking Status: Current Every Day Smoker Frequency of Alcohol Use: Heavy Hx Recreational Drug Use: Yes Drugs: Cocaine Hx Prescription Drug Abuse: No Family History Family History: Reviewed & Not Pertinent Parental Family History Reviewed: Yes Children Family History Reviewed: Yes Sibling(s) Family History Reviewed.: Yes Medication/Allergy Home Medications: Megestrol Acetate 20 ml NG DAILY 11/29/17 Carvedilol [Coreg 3.125 mg Tablet] 1 tab NG BID 12/11/17 Enoxaparin Sodium 0.8 ml SUBCUT Q12H 12/11/17 Folic Acid 1 mg NG DAILY 12/11/17 Guar Gum [Nutrisource Fiber] 1 packet NG TID 12/11/17 Haloperidol Lactate [Haldol 5 mg/ml Inj 1 ml Vial] 1 ml IV Q6H PRN 12/11/17 Melatonin 6 mg NG QPM 12/11/17 Polyethylene Glycol 3350 [Miralax Powder 17 gm/Packet] 17 g NG DAILY PRN Quetiapine Fumarate 25 mg NG QPM 12/11/17 Thiamine Mononitrate (Vit B1) [Vitamin B-1] 100 mg NG DAILY 12/11/17 Allergies/Adverse Reactions: No Known Allergies Allergy (Verified 04/25/17 18:37) Review of Systems Constitutional: ABSENT: chills, fever(s), headache(s), weight gain, weight loss Eyes: ABSENT: visual disturbances Ears: ABSENT: hearing changes Cardiovascular: ABSENT: chest pain, dyspnea on exertion, edema, orthropnea, palpitations Respiratory: PRESENT: cough Gastrointestinal: ABSENT: abdominal pain, constipation, diarrhea, hematemesis, hematochezia, nausea, vomiting Genitourinary: ABSENT: dysuria, hematuria Musculoskeletal: ABSENT: joint swelling Integumentary: ABSENT: rash, wounds Neurological: ABSENT: abnormal gait, abnormal speech, confusion, dizziness, focal weakness, syncope Psychiatric: ABSENT: anxiety, depression, homidical ideation, suicidal ideation Endocrine: ABSENT: cold intolerance, heat intolerance, menstrual abnormalities, polydipsia, polyuria Hematologic/Lymphatic: ABSENT: easy bleeding, easy bruising, lymphadenopathy Physical Exam Vital Signs: Temp Pulse Resp BP Pulse Ox 99.8 F 101 H 16 139/78 H 94 12/11/17 07:18 12/11/17 07:18 12/11/17 07:18 12/11/17 07:18 12/11/17 07:18 Intake & Output 12/10/17 12/11/17 12/12/17 06:59 06:59 06:59 Intake Total 0 Balance 0 Weight 79.5 kg General appearance: PRESENT: no acute distress Respiratory exam: PRESENT: rhonchi Cardiovascular exam: PRESENT: +S1, +S2 GI/Abdominal exam: PRESENT: soft Neurological exam: PRESENT: alert Assessment & Plan - Diagnosis (1) Septicemia due to Streptococcus pneumonia Is this a current diagnosis for this admission?: Yes Plan: The chart was reviewed, patient to be admitted for management (2) Pneumonia involving right lung Qualifiers: Pneumonia type: due to Pneumococcus Lung location: upper lobe of lung Qualified Code(s): J13 - Pneumonia due to Streptococcus pneumoniae Is this a current diagnosis for this admission?: Yes (4) Alcoholic cirrhosis of liver Qualifiers: Ascites presence: without ascites Qualified Code(s): K70.30 - Alcoholic cirrhosis of liver without ascites Is this a current diagnosis for this admission?: Yes (5) Chronic obstructive pulmonary disease Qualifiers: COPD type: unspecified COPD Qualified Code(s): J44.9 - Chronic obstructive pulmonary disease, unspecified Is this a current diagnosis for this admission?: Yes (6) Deep vein thrombosis (DVT) of axillary vein of right upper extremity Qualifiers: Chronicity: acute Qualified Code(s): I82.A11 - Acute embolism and thrombosis of right axillary vein Is this a current diagnosis for this admission?: Yes (7) Thrombocytopenia Is this a current diagnosis for this admission?: Yes
--- NOTE | 2017-12-11 15:05 | RADIOLOGY REPORT (SQ) ---
EXAM DESCRIPTION: CHEST SINGLE VIEW COMPLETED DATE/TIME: 12/11/2017 2:39 pm REASON FOR STUDY: pneumonia COMPARISON: 12/03/2017, CT scan 429 EXAM PARAMETERS: NUMBER OF VIEWS: One view. TECHNIQUE: Single frontal radiographic view of the chest acquired. RADIATION DOSE: NA LIMITATIONS: None. FINDINGS: LUNGS AND PLEURA: Significant improved aeration of the right lung. There is still partial atelectasis of the right upper lobe with pleural reaction. Persistent concern for right perihilar m ass. MEDIASTINUM AND HILAR STRUCTURES: No masses. Contour normal. HEART AND VASCULAR STRUCTURES: Heart normal in size. Normal vasculature. BONES: No acute findings. HARDWARE: None in the chest. OTHER: No other significant finding. IMPRESSION: Significant improved aeration of the right lung over the previous study with residual vo lume loss in the right upper lobe and pleural reaction. Persistent concern for right hilar mass. TECHNICAL DOCUMENTATION: JOB ID: [id number] [employer]- All Rights Reserved Reading location - IP/workstation name: [email or web address]
[2017-12-11 15:36] LABS: PROTHROMBIN TIME 14.8 SEC (11.4-15.4)
[2017-12-11 15:37] LABS: PARTIAL THROMBOPLASTIN TIME 41.9 SEC (23.5-35.8)
[2017-12-11 15:59] LABS: PHOSPHORUS 4.5 mg/dL (2.5-4.5)
[2017-12-11 16:17] LABS: CREATINE KINASE MB < 0.22 ng/mL (<4.55); TROPONIN I < 0.012 ng/mL
[2017-12-11 16:23] LABS: LIPASE 3977.6 U/L (23-300)
[2017-12-11] MEDS: MELATONIN 3 MG TABLET PO SCH (17:45)
[2017-12-11] MEDS: QUETIAPINE FUMARATE 25 MG TABLET PO SCH (17:45)
[2017-12-11 17:48] LABS: APPEARANCE,URINE CLOUDY; BILIRUBIN,URINE NEGATIVE (NEGATIVE); COLOR,URINE AMBER; GLUCOSE, URINE NEGATIVE (NEGATIVE); KETONES,URINE NEGATIVE (NEGATIVE); LEUKOCYTE ESTERASE,URINE SMALL (NEGATIVE); NITRITE,URINE NEGATIVE (NEGATIVE); PROTEIN,URINE NEGATIVE (NEGATIVE); URINE SPECIFIC GRAVITY 1.017; UROBILINOGEN,URINE NEGATIVE mg/dL (<2.0)
[2017-12-11] MEDS ORDERED: QUETIAPINE FUMARATE 25 MG TABLET NG SCH (18:00)
[2017-12-11] MEDS ORDERED: CEFTRIAXONE 1 GM/D5W RTU 1 GM/50 ML RTUPB IV SCH (18:00)
[2017-12-11 18:15] LABS: URINE AMPHETAMINES SCREEN NEGATIVE; URINE BARBITURATES SCREEN NEGATIVE; URINE BENZODIAZEPINES SCREEN NEGATIVE; URINE COCAINE SCREEN NEGATIVE; URINE MARIJUANA (THC) SCREEN NEGATIVE; URINE METHADONE SCREEN NEGATIVE; URINE PHENCYCLIDINE SCREEN NEGATIVE
[2017-12-11] MEDS ORDERED: CEFTRIAXONE 1 GM/D5W RTU 1 GM/50 ML RTUPB IV ONE (18:17)
[2017-12-11 19:18] LABS: ALANINE AMINOTRANSFERASE 23 U/L (9-52); ALBUMIN 2.6 g/dL (3.5-5.0); ALKALINE PHOSPHATASE 210 U/L (38-126); ANION GAP 10 (5-19); ASPARTATE AMINO TRANSFERASE 83 U/L (14-36); BILIRUBIN,TOTAL 2.4 mg/dL (0.2-1.3); BLOOD UREA NITROGEN 13 mg/dL (7-20); CALCIUM 9.6 mg/dL (8.4-10.2); CARBON DIOXIDE 32 mmol/L (22-30); CHLORIDE 97 mmol/L (98-107); GLUCOSE 105 mg/dL (75-110); POTASSIUM 4.4 mmol/L (3.6-5.0); SODIUM 139.1 mmol/L (137-145); TOTAL PROTEIN 6.4 g/dL (6.3-8.2)
[2017-12-11 20:13] LABS: ABSOLUTE BASOPHILS # (AUTO) 0.2 10^3/uL (0.0-0.2); ABSOLUTE EOSINOPHILS # (AUTO) 0.1 10^3/uL (0.0-0.6); ABSOLUTE LYMPHOCYTES (AUTO) 1.5 10^3/uL (0.5-4.7); ABSOLUTE MONOCYTES (AUTO) 1.3 10^3/uL (0.1-1.4); ABSOLUTE NEUT (AUTO) 11.5 10^3/uL (1.7-8.2); BASOPHILS % (AUTO) 1.1 % (0-2); EOSINOPHILS % (AUTO) 0.6 % (0-6); HEMATOCRIT 24.4 % (36.0-47.0); HEMOGLOBIN 8.3 g/dL (12.0-15.5); LYMPHOCYTES % (AUTO) 10.6 % (13-45); MEAN CORPUSCULAR HEMOGLOBIN 36.7 pg (27.0-33.4); MEAN CORPUSCULAR HGB CONC 34.1 g/dL (32.0-36.0); MONOCYTES % (AUTO) 8.6 % (3-13); PLATELET COUNT 183 10^3/uL (150-450); RED BLOOD COUNT 2.27 10^6/uL (3.72-5.28); RED CELL DISTRIBUTION WIDTH 22.1 % (11.5-14.0); SEGMENTED NEUTROPHILS % (AUTO) 79.1 % (42-78); TOTAL CELLS COUNTED % (AUTO) 100 %; WHITE BLOOD COUNT 14.5 10^3/uL (4.0-10.5)
[2017-12-11 20:22] LABS: MEAN CORPUSCULAR VOLUME 108 fl (80-97)
[2017-12-11 20:26] LABS: ANISOCYTOSIS 3+; PLATELET COMMENT ADEQUATE; POIKILOCYTOSIS SLIGHT; TOXIC GRANULATION SLIGHT
[2017-12-11 20:27] LABS: TARGET CELLS SLIGHT
[2017-12-11] MEDS: CARVEDILOL 3.125 MG TABLET PO SCH (21:19)
[2017-12-11 22:14] LABS: CREATINE KINASE MB 0.27 ng/mL (<4.55)
[2017-12-11 22:18] LABS: TROPONIN I < 0.012 ng/mL
[2017-12-12 04:00] LABS: ABSOLUTE BASOPHILS # (AUTO) 0.1 10^3/uL (0.0-0.2); ABSOLUTE EOSINOPHILS # (AUTO) 0.1 10^3/uL (0.0-0.6); ABSOLUTE LYMPHOCYTES (AUTO) 1.7 10^3/uL (0.5-4.7); ABSOLUTE MONOCYTES (AUTO) 1.3 10^3/uL (0.1-1.4); ABSOLUTE NEUT (AUTO) 10.4 10^3/uL (1.7-8.2); BASOPHILS % (AUTO) 0.8 % (0-2); EOSINOPHILS % (AUTO) 0.9 % (0-6); HEMATOCRIT 23.8 % (36.0-47.0); HEMOGLOBIN 8.1 g/dL (12.0-15.5); LYMPHOCYTES % (AUTO) 12.3 % (13-45); MEAN CORPUSCULAR HEMOGLOBIN 36.4 pg (27.0-33.4); MEAN CORPUSCULAR HGB CONC 33.9 g/dL (32.0-36.0); MEAN CORPUSCULAR VOLUME 107 fl (80-97); MONOCYTES % (AUTO) 9.5 % (3-13); PLATELET COUNT 190 10^3/uL (150-450); RED BLOOD COUNT 2.22 10^6/uL (3.72-5.28); RED CELL DISTRIBUTION WIDTH 22.2 % (11.5-14.0); SEGMENTED NEUTROPHILS % (AUTO) 76.5 % (42-78); TOTAL CELLS COUNTED % (AUTO) 100 %; WHITE BLOOD COUNT 13.5 10^3/uL (4.0-10.5)
[2017-12-12 04:09] LABS: ALANINE AMINOTRANSFERASE 23 U/L (9-52); ALBUMIN 2.7 g/dL (3.5-5.0); ALKALINE PHOSPHATASE 203 U/L (38-126); ANION GAP 7 (5-19); ASPARTATE AMINO TRANSFERASE 81 U/L (14-36); BILIRUBIN,DIRECT 1.6 mg/dL (0.0-0.4); BILIRUBIN,TOTAL 1.9 mg/dL (0.2-1.3); BLOOD UREA NITROGEN 13 mg/dL (7-20); CALCIUM 9.4 mg/dL (8.4-10.2); CARBON DIOXIDE 35 mmol/L (22-30); CHLORIDE 99 mmol/L (98-107); CHOLESTEROL 157.34 mg/dL (0-200); GLUCOSE 128 mg/dL (75-110); POTASSIUM 4.3 mmol/L (3.6-5.0); SODIUM 141.2 mmol/L (137-145); TOTAL PROTEIN 6.3 g/dL (6.3-8.2); TRIGLYCERIDES 122 mg/dL (<150)
[2017-12-12 04:20] LABS: CREATINE KINASE MB 0.23 ng/mL (<4.55); DIRECT LDL 106 mg/dL (<100)
[2017-12-12 04:25] LABS: TROPONIN I < 0.012 ng/mL
[2017-12-12 04:34] LABS: ANISOCYTOSIS 3+; HYPOCHROMASIA SLIGHT; OVALOCYTES SLIGHT; PLATELET COMMENT ADEQUATE; PLATELET LARGE PRESENT; POIKILOCYTOSIS SLIGHT; TARGET CELLS SLIGHT; TOXIC GRANULATION SLIGHT; TOXIC VACUOLATION PRESENT
[2017-12-12] MEDS: ENOXAPARIN SODIUM INJ 80 MG/0.8 ML DISP.SYRIN SUBCUT SCH ×2 (06:39→17:16)
[2017-12-12] MEDS: MEGESTROL ACETATE SUSP 400 MG/10 ML UDCUP PO SCH (09:09)
[2017-12-12] MEDS: CARVEDILOL 3.125 MG TABLET PO SCH ×2 (09:09→21:27)
[2017-12-12] MEDS: FOLIC ACID 1 MG TABLET PO SCH (09:09)
[2017-12-12] MEDS: THIAMINE HCL 100 MG TABLET PO SCH (09:09)
--- NOTE | 2017-12-12 16:37 | PDOC PROGRESS REPORT ---
Subjective Progress Note for:: 12/12/17 Subjective:: Patient was seen by the bedside, she is very deconditioned, she will need physical therapy/rehabilitation in a residential home, she has Medicaid insurance I am not sure how this would play out, consultation will be requested from discharge planning to work on disposition, still on IV antibiotic Reason For Visit: PNEUMONIA Physical Exam Vital Signs: Temp Pulse Resp BP Pulse Ox 97.6 F 100 18 99/52 L 100 12/12/17 16:00 12/12/17 16:00 12/12/17 16:00 12/12/17 16:00 12/12/17 16:00 Intake & Output 12/11/17 12/12/17 12/13/17 06:59 06:59 06:59 Intake Total 0 561 Balance 0 561 Weight 79.5 kg 77 kg General appearance: PRESENT: no acute distress Eye exam: PRESENT: PERRLA Respiratory exam: PRESENT: clear to auscultation dawna, rhonchi Cardiovascular exam: PRESENT: +S1, +S2 GI/Abdominal exam: PRESENT: soft Neurological exam: PRESENT: alert Results Laboratory Results: 12/12/17 03:43 12/12/17 03:43 12/11/17 12/11/17 12/11/17 15:04 15:04 17:20 WBC 14.5 H RBC 2.27 L Hgb 8.3 L Hct 24.4 L MCV 108 H D MCH 36.7 H MCHC 34.1 RDW 22.1 H Plt Count 183 Seg Neutrophils % 79.1 H Lymphocytes % 10.6 L Monocytes % 8.6 Eosinophils % 0.6 Basophils % 1.1 Absolute Neutrophils 11.5 H Absolute Lymphocytes 1.5 Absolute Monocytes 1.3 Absolute Eosinophils 0.1 Absolute Basophils 0.2 Sodium 139.1 Potassium 4.4 Chloride 97 L Carbon Dioxide 32 H Anion Gap 10 BUN 13 Creatinine 0.59 Est GFR ( Amer) > 60 Est GFR (Non-Af Amer) > 60 Glucose 105 Calcium 9.6 Total Bilirubin 2.4 H AST 83 H ALT 23 Alkaline Phosphatase 210 H Total Protein 6.4 Albumin 2.6 L Triglycerides Cholesterol LDL Cholesterol Direct VLDL Cholesterol HDL Cholesterol Urine Color JESS Urine Appearance CLOUDY Urine pH 6.0 Ur Specific [place] 1.017 Urine Protein NEGATIVE Urine Glucose (UA) NEGATIVE Urine Ketones NEGATIVE Urine Blood NEGATIVE Urine Nitrite NEGATIVE Ur Leukocyte Esterase SMALL H Urine WBC (Auto) 50 Urine RBC (Auto) 2 12/12/17 12/12/17 03:43 03:43 WBC 13.5 H RBC 2.22 L Hgb 8.1 L Hct 23.8 L MCV 107 H MCH 36.4 H MCHC 33.9 RDW 22.2 H Plt Count 190 Seg Neutrophils % 76.5 Lymphocytes % 12.3 L Monocytes % 9.5 Eosinophils % 0.9 Basophils % 0.8 Absolute Neutrophils 10.4 H Absolute Lymphocytes 1.7 Absolute Monocytes 1.3 Absolute Eosinophils 0.1 Absolute Basophils 0.1 Sodium 141.2 Potassium 4.3 Chloride 99 Carbon Dioxide 35 H Anion Gap 7 BUN 13 Creatinine 0.57 Est GFR ( Amer) > 60 Est GFR (Non-Af Amer) > 60 Glucose 128 H Calcium 9.4 Total Bilirubin 1.9 H AST 81 H ALT 23 Alkaline Phosphatase 203 H Total Protein 6.3 Albumin 2.7 L Triglycerides 122 Cholesterol 157.34 LDL Cholesterol Direct 106 H VLDL Cholesterol 24.0 HDL Cholesterol 18 L Urine Color Urine Appearance Urine pH Ur Specific [place] Urine Protein Urine Glucose (UA) Urine Ketones Urine Blood Urine Nitrite Ur Leukocyte Esterase Urine WBC (Auto) Urine RBC (Auto) 12/11/17 12/11/17 12/11/17 15:04 15:04 21:40 Creatine Kinase < 20 L < 20 L CK-MB (CK-2) < 0.22 Troponin I < 0.012 12/11/17 12/12/17 12/12/17 21:40 03:43 03:43 Creatine Kinase < 20 L CK-MB (CK-2) 0.27 0.23 Troponin I < 0.012 < 0.012 Impressions: Chest X-Ray 12/11/17 13:47 IMPRESSION: Significant improved aeration of the right lung over the previous study with residual volume loss in the right upper lobe and pleural reaction. Persistent concern for right hilar mass. Assessment & Plan - Diagnosis (1) Septicemia due to Streptococcus pneumonia Is this a current diagnosis for this admission?: Yes (2) Pneumonia involving right lung Qualifiers: Pneumonia type: due to Pneumococcus Lung location: upper lobe of lung Qualified Code(s): J13 - Pneumonia due to Streptococcus pneumoniae Is this a current diagnosis for this admission?: Yes (3) Alcoholic cirrhosis of liver Is this a current diagnosis for this admission?: Yes (4) Alcoholic cirrhosis of liver Qualifiers: Ascites presence: without ascites Qualified Code(s): K70.30 - Alcoholic cirrhosis of liver without ascites Is this a current diagnosis for this admission?: Yes (5) Chronic obstructive pulmonary disease Qualifiers: COPD type: unspecified COPD Qualified Code(s): J44.9 - Chronic obstructive pulmonary disease, unspecified Is this a current diagnosis for this admission?: Yes (6) Deep vein thrombosis (DVT) of axillary vein of right upper extremity Qualifiers: Chronicity: acute Qualified Code(s): I82.A11 - Acute embolism and thrombosis of right axillary vein Is this a current diagnosis for this admission?: Yes (7) Thrombocytopenia Is this a current diagnosis for this admission?: Yes - Plan Summary Plan Summary: Continue treatment
[2017-12-12] MEDS: MELATONIN 3 MG TABLET PO SCH (17:16)
[2017-12-12] MEDS: QUETIAPINE FUMARATE 25 MG TABLET PO SCH (17:16)
[2017-12-12] MEDS: CEFTRIAXONE SODIUM 1,000 MG in DEXTROSE 5%-WATER 50 ML IV SCH (17:16)
[2017-12-13] MEDS ORDERED: DILTIAZEM HCL INJ 25 MG/5 ML VIAL ONE ×2 (02:56→03:00)
[2017-12-13] MEDS ORDERED: DILTIAZEM HCL INJ 25 MG/5 ML VIAL IV PRN (03:19)
[2017-12-13] MEDS ORDERED: DILTIAZEM HCL INJ 25 MG/5 ML VIAL IV ONE (03:30)
[2017-12-13] MEDS ORDERED: DILTIAZEM HCL IV ONE (03:30)
[2017-12-13] MEDS ORDERED: NORMAL SALINE IV ONE (03:30)
[2017-12-13] MEDS: ENOXAPARIN SODIUM INJ 80 MG/0.8 ML DISP.SYRIN SUBCUT SCH ×2 (05:28→18:20)
[2017-12-13 07:49] LABS: ABSOLUTE BASOPHILS # (AUTO) 0.1 10^3/uL (0.0-0.2); ABSOLUTE EOSINOPHILS # (AUTO) 0.1 10^3/uL (0.0-0.6); ABSOLUTE LYMPHOCYTES (AUTO) 2.2 10^3/uL (0.5-4.7); ABSOLUTE MONOCYTES (AUTO) 1.1 10^3/uL (0.1-1.4); ABSOLUTE NEUT (AUTO) 8.7 10^3/uL (1.7-8.2); BASOPHILS % (AUTO) 0.6 % (0-2); EOSINOPHILS % (AUTO) 1.1 % (0-6); HEMATOCRIT 23.4 % (36.0-47.0); LYMPHOCYTES % (AUTO) 18.2 % (13-45); MEAN CORPUSCULAR HEMOGLOBIN 36.5 pg (27.0-33.4); MEAN CORPUSCULAR HGB CONC 33.8 g/dL (32.0-36.0); MEAN CORPUSCULAR VOLUME 108 fl (80-97); MONOCYTES % (AUTO) 9.3 % (3-13); PLATELET COUNT 300 10^3/uL (150-450); RED BLOOD COUNT 2.16 10^6/uL (3.72-5.28); RED CELL DISTRIBUTION WIDTH 21.6 % (11.5-14.0); SEGMENTED NEUTROPHILS % (AUTO) 70.8 % (42-78); TOTAL CELLS COUNTED % (AUTO) 100 %; WHITE BLOOD COUNT 12.3 10^3/uL (4.0-10.5)
[2017-12-13 07:53] LABS: HEMOGLOBIN 7.9 g/dL (12.0-15.5)
[2017-12-13 08:42] LABS: ANISOCYTOSIS 2+; HYPOCHROMASIA 1+; PLATELET COMMENT ADEQUATE; POLYCHROMASIA SLIGHT; ROULEAUX SLIGHT; TARGET CELLS SLIGHT
[2017-12-13] MEDS: FOLIC ACID 1 MG TABLET PO SCH (09:28)
[2017-12-13] MEDS: CARVEDILOL 3.125 MG TABLET PO SCH ×2 (09:28→21:26)
[2017-12-13] MEDS: THIAMINE HCL 100 MG TABLET PO SCH (09:28)
[2017-12-13] MEDS: MEGESTROL ACETATE SUSP 400 MG/10 ML UDCUP PO SCH (09:28)
[2017-12-13] MEDS: QUETIAPINE FUMARATE 25 MG TABLET PO SCH (18:19)
[2017-12-13] MEDS: MELATONIN 3 MG TABLET PO SCH (18:19)
[2017-12-13] MEDS: CEFTRIAXONE SODIUM 1,000 MG in DEXTROSE 5%-WATER 50 ML IV SCH (18:20)
[2017-12-13] MEDS ORDERED: NORMAL SALINE 250 ML IV PRN ×2 (19:19)
--- NOTE | 2017-12-13 19:23 | PDOC PROGRESS REPORT ---
Subjective Progress Note for:: 12/13/17 Subjective:: Patient seen by the bedside she supposedly had SVT on the floor, was transferred to IMCU, no SVT identified in IMCU, she has sinus tachycardia, she is anemic today, requiring blood transfusion. She is still confused but she is alert Reason For Visit: PNEUMONIA Physical Exam Vital Signs: Temp Pulse Resp BP Pulse Ox 99.2 F 119 H 20 111/70 98 12/13/17 16:13 12/13/17 16:13 12/13/17 16:13 12/13/17 16:13 12/13/17 16:13 Intake & Output 12/12/17 12/13/17 12/14/17 06:59 06:59 06:59 Intake Total 561 1316 599 Balance 561 1316 599 Weight 77 kg 76.9 kg General appearance: PRESENT: no acute distress Eye exam: PRESENT: scleral icterus Respiratory exam: PRESENT: wheezes Cardiovascular exam: PRESENT: +S1, +S2 GI/Abdominal exam: PRESENT: soft Neurological exam: PRESENT: alert Results Laboratory Results: 12/13/17 07:32 12/12/17 03:43 12/13/17 07:32 WBC 12.3 H RBC 2.16 L Hgb 7.9 L Hct 23.4 L MCV 108 H MCH 36.5 H MCHC 33.8 RDW 21.6 H Plt Count 300 Seg Neutrophils % 70.8 Lymphocytes % 18.2 Monocytes % 9.3 Eosinophils % 1.1 Basophils % 0.6 Absolute Neutrophils 8.7 H Absolute Lymphocytes 2.2 Absolute Monocytes 1.1 Absolute Eosinophils 0.1 Absolute Basophils 0.1 12/11/17 17:20 Catheterized Urine Urine Culture - Final C.albicans/C.dubliniensis 12/11/17 12/11/17 12/11/17 15:04 15:04 21:40 Creatine Kinase < 20 L < 20 L CK-MB (CK-2) < 0.22 Troponin I < 0.012 12/11/17 12/12/17 12/12/17 21:40 03:43 03:43 Creatine Kinase < 20 L CK-MB (CK-2) 0.27 0.23 Troponin I < 0.012 < 0.012 Impressions: Chest X-Ray 12/11/17 13:47 IMPRESSION: Significant improved aeration of the right lung over the previous study with residual volume loss in the right upper lobe and pleural reaction. Persistent concern for right hilar mass. Assessment & Plan - Diagnosis (1) Septicemia due to Streptococcus pneumonia Is this a current diagnosis for this admission?: Yes (2) Pneumonia involving right lung Qualifiers: Pneumonia type: due to Pneumococcus Lung location: upper lobe of lung Qualified Code(s): J13 - Pneumonia due to Streptococcus pneumoniae Is this a current diagnosis for this admission?: Yes (3) Alcoholic cirrhosis of liver Qualifiers: Ascites presence: without ascites Qualified Code(s): K70.30 - Alcoholic cirrhosis of liver without ascites Is this a current diagnosis for this admission?: Yes (4) Chronic obstructive pulmonary disease Qualifiers: COPD type: unspecified COPD Qualified Code(s): J44.9 - Chronic obstructive pulmonary disease, unspecified Is this a current diagnosis for this admission?: Yes (5) Deep vein thrombosis (DVT) of axillary vein of right upper extremity Qualifiers: Chronicity: acute Qualified Code(s): I82.A11 - Acute embolism and thrombosis of right axillary vein Is this a current diagnosis for this admission?: Yes (6) Thrombocytopenia Is this a current diagnosis for this admission?: Yes (7) Anemia Qualifiers: Anemia type: unspecified type Qualified Code(s): D64.9 - Anemia, unspecified Is this a current diagnosis for this admission?: Yes Plan: Transfuse 2 units of blood
[2017-12-14 05:59] LABS: ABSOLUTE BASOPHILS # (AUTO) 0.1 10^3/uL (0.0-0.2); ABSOLUTE EOSINOPHILS # (AUTO) 0.1 10^3/uL (0.0-0.6); ABSOLUTE MONOCYTES (AUTO) 1.2 10^3/uL (0.1-1.4); ABSOLUTE NEUT (AUTO) 8.3 10^3/uL (1.7-8.2); EOSINOPHILS % (AUTO) 0.9 % (0-6); HEMATOCRIT 27.1 % (36.0-47.0); HEMOGLOBIN 9.4 g/dL (12.0-15.5); LYMPHOCYTES % (AUTO) 17.1 % (13-45); MEAN CORPUSCULAR HEMOGLOBIN 36.1 pg (27.0-33.4); MEAN CORPUSCULAR HGB CONC 34.6 g/dL (32.0-36.0); MONOCYTES % (AUTO) 10.3 % (3-13); PLATELET COUNT 228 10^3/uL (150-450); RED CELL DISTRIBUTION WIDTH 23.6 % (11.5-14.0); SEGMENTED NEUTROPHILS % (AUTO) 70.7 % (42-78); TOTAL CELLS COUNTED % (AUTO) 100 %; WHITE BLOOD COUNT 11.7 10^3/uL (4.0-10.5)
[2017-12-14 06:08] LABS: MEAN CORPUSCULAR VOLUME 104 fl (80-97)
[2017-12-14 06:29] LABS: ANISOCYTOSIS 3+; PLATELET COMMENT ADEQUATE; TOXIC GRANULATION SLIGHT
[2017-12-14] MEDS: ENOXAPARIN SODIUM INJ 80 MG/0.8 ML DISP.SYRIN SUBCUT SCH ×2 (06:53→18:07)
[2017-12-14] MEDS: THIAMINE HCL 100 MG TABLET PO SCH (09:12)
[2017-12-14] MEDS: FOLIC ACID 1 MG TABLET PO SCH (09:12)
[2017-12-14] MEDS: MEGESTROL ACETATE SUSP 400 MG/10 ML UDCUP PO SCH (09:13)
[2017-12-14] MEDS: CARVEDILOL 3.125 MG TABLET PO SCH ×2 (09:13→21:41)
[2017-12-14 12:19] LABS: ABSOLUTE BASOPHILS # (AUTO) 0.1 10^3/uL (0.0-0.2); ABSOLUTE EOSINOPHILS # (AUTO) 0.1 10^3/uL (0.0-0.6); ABSOLUTE LYMPHOCYTES (AUTO) 1.9 10^3/uL (0.5-4.7); ABSOLUTE MONOCYTES (AUTO) 1.2 10^3/uL (0.1-1.4); ABSOLUTE NEUT (AUTO) 9.6 10^3/uL (1.7-8.2); BASOPHILS % (AUTO) 0.9 % (0-2); EOSINOPHILS % (AUTO) 0.8 % (0-6); HEMATOCRIT 31.2 % (36.0-47.0); HEMOGLOBIN 10.6 g/dL (12.0-15.5); LYMPHOCYTES % (AUTO) 14.6 % (13-45); MEAN CORPUSCULAR HEMOGLOBIN 33.6 pg (27.0-33.4); MEAN CORPUSCULAR HGB CONC 33.9 g/dL (32.0-36.0); MONOCYTES % (AUTO) 9.1 % (3-13); PLATELET COUNT 237 10^3/uL (150-450); RED BLOOD COUNT 3.15 10^6/uL (3.72-5.28); RED CELL DISTRIBUTION WIDTH 24.7 % (11.5-14.0); SEGMENTED NEUTROPHILS % (AUTO) 74.6 % (42-78); TOTAL CELLS COUNTED % (AUTO) 100 %; WHITE BLOOD COUNT 12.9 10^3/uL (4.0-10.5)
[2017-12-14 13:04] LABS: MEAN CORPUSCULAR VOLUME 99 fl (80-97)
[2017-12-14] MEDS: QUETIAPINE FUMARATE 25 MG TABLET PO SCH (18:06)
[2017-12-14] MEDS: CEFTRIAXONE SODIUM 1,000 MG in DEXTROSE 5%-WATER 50 ML IV SCH (18:06)
[2017-12-14] MEDS: MELATONIN 3 MG TABLET PO SCH (18:06)
--- NOTE | 2017-12-14 21:45 | PDOC PROGRESS REPORT ---
Subjective Progress Note for:: 12/14/17 Subjective:: She was by the bedside, hopefully discharge in 2 days Reason For Visit: PNEUMONIA Physical Exam Vital Signs: Temp Pulse Resp BP Pulse Ox 98.0 F 89 20 136/75 H 97 12/14/17 19:15 12/14/17 19:15 12/14/17 19:15 12/14/17 19:15 12/14/17 19:15 Intake & Output 12/13/17 12/14/17 12/15/17 06:59 06:59 06:59 Intake Total 1316 1781 1718 Balance 1316 1781 1718 Weight 76.9 kg 76.9 kg General appearance: PRESENT: no acute distress Eye exam: PRESENT: PERRLA Respiratory exam: PRESENT: rhonchi Cardiovascular exam: PRESENT: +S1, +S2 GI/Abdominal exam: PRESENT: soft Neurological exam: PRESENT: alert Results Laboratory Results: 12/14/17 12:07 12/12/17 03:43 12/13/17 12/14/17 12/14/17 19:32 05:37 12:07 WBC 11.7 H 12.9 H RBC 2.60 L 3.15 L Hgb 9.4 L 10.6 L Hct 27.1 L 31.2 L MCV 104 H D 99 H D MCH 36.1 H 33.6 H MCHC 34.6 33.9 RDW 23.6 H 24.7 H Plt Count 228 237 Seg Neutrophils % 70.7 74.6 Lymphocytes % 17.1 14.6 Monocytes % 10.3 9.1 Eosinophils % 0.9 0.8 Basophils % 1.0 0.9 Absolute Neutrophils 8.3 H 9.6 H Absolute Lymphocytes 2.0 1.9 Absolute Monocytes 1.2 1.2 Absolute Eosinophils 0.1 0.1 Absolute Basophils 0.1 0.1 Blood Type B POSITIVE Antibody Screen NEGATIVE 12/11/17 12/11/17 12/11/17 15:04 15:04 21:40 Creatine Kinase < 20 L < 20 L CK-MB (CK-2) < 0.22 Troponin I < 0.012 12/11/17 12/12/17 12/12/17 21:40 03:43 03:43 Creatine Kinase < 20 L CK-MB (CK-2) 0.27 0.23 Troponin I < 0.012 < 0.012 Impressions: Chest X-Ray 12/11/17 13:47 IMPRESSION: Significant improved aeration of the right lung over the previous study with residual volume loss in the right upper lobe and pleural reaction. Persistent concern for right hilar mass. Assessment & Plan - Diagnosis (1) Septicemia due to Streptococcus pneumonia Is this a current diagnosis for this admission?: Yes (2) Pneumonia involving right lung Qualifiers: Pneumonia type: due to Pneumococcus Lung location: upper lobe of lung Qualified Code(s): J13 - Pneumonia due to Streptococcus pneumoniae Is this a current diagnosis for this admission?: Yes (3) Alcoholic cirrhosis of liver Qualifiers: Ascites presence: without ascites Qualified Code(s): K70.30 - Alcoholic cirrhosis of liver without ascites Is this a current diagnosis for this admission?: Yes (4) Chronic obstructive pulmonary disease Qualifiers: COPD type: unspecified COPD Qualified Code(s): J44.9 - Chronic obstructive pulmonary disease, unspecified Is this a current diagnosis for this admission?: Yes (5) Deep vein thrombosis (DVT) of axillary vein of right upper extremity Qualifiers: Chronicity: acute Qualified Code(s): I82.A11 - Acute embolism and thrombosis of right axillary vein Is this a current diagnosis for this admission?: Yes (6) Thrombocytopenia Is this a current diagnosis for this admission?: Yes (7) Anemia Qualifiers: Anemia type: unspecified type Qualified Code(s): D64.9 - Anemia, unspecified Is this a current diagnosis for this admission?: Yes
[2017-12-15] MEDS: ENOXAPARIN SODIUM INJ 80 MG/0.8 ML DISP.SYRIN SUBCUT SCH ×2 (05:21→17:58)
[2017-12-15] MEDS: FOLIC ACID 1 MG TABLET PO SCH (10:40)
[2017-12-15] MEDS: THIAMINE HCL 100 MG TABLET PO SCH (10:40)
[2017-12-15] MEDS: CARVEDILOL 3.125 MG TABLET PO SCH ×2 (10:40→21:24)
[2017-12-15] MEDS: MEGESTROL ACETATE SUSP 400 MG/10 ML UDCUP PO SCH (10:41)
[2017-12-15] MEDS: QUETIAPINE FUMARATE 25 MG TABLET PO SCH (17:58)
[2017-12-15] MEDS: CEFTRIAXONE SODIUM 1,000 MG in DEXTROSE 5%-WATER 50 ML IV SCH (17:59)
[2017-12-15] MEDS: MELATONIN 3 MG TABLET PO SCH (17:59)
--- NOTE | 2017-12-15 20:10 | PDOC PROGRESS REPORT ---
Subjective Progress Note for:: 12/15/17 Subjective:: She was seen by the bedside, she will be discharge home tomorrow Reason For Visit: PNEUMONIA Physical Exam Vital Signs: Temp Pulse Resp BP Pulse Ox 99.2 F 82 18 138/80 H 93 12/15/17 19:19 12/15/17 19:19 12/15/17 19:19 12/15/17 19:19 12/15/17 19:19 Intake & Output 12/14/17 12/15/17 12/16/17 06:59 06:59 06:59 Intake Total 1780 Balance 1780 Weight 76.9 kg 79.6 kg General appearance: PRESENT: no acute distress Eye exam: PRESENT: PERRLA Respiratory exam: PRESENT: clear to auscultation dawna Cardiovascular exam: PRESENT: +S1, +S2 GI/Abdominal exam: PRESENT: soft Results Laboratory Results: 12/14/17 12:07 12/12/17 03:43 12/11/17 12/11/17 12/11/17 15:04 15:04 21:40 Creatine Kinase < 20 L < 20 L CK-MB (CK-2) < 0.22 Troponin I < 0.012 12/11/17 12/12/17 12/12/17 21:40 03:43 03:43 Creatine Kinase < 20 L CK-MB (CK-2) 0.27 0.23 Troponin I < 0.012 < 0.012 Impressions: Chest X-Ray 12/11/17 13:47 IMPRESSION: Significant improved aeration of the right lung over the previous study with residual volume loss in the right upper lobe and pleural reaction. Persistent concern for right hilar mass. Assessment & Plan - Diagnosis (1) Septicemia due to Streptococcus pneumonia Is this a current diagnosis for this admission?: Yes (2) Pneumonia involving right lung Qualifiers: Pneumonia type: due to Pneumococcus Lung location: upper lobe of lung Qualified Code(s): J13 - Pneumonia due to Streptococcus pneumoniae Is this a current diagnosis for this admission?: Yes (3) Alcoholic cirrhosis of liver Qualifiers: Ascites presence: without ascites Qualified Code(s): K70.30 - Alcoholic cirrhosis of liver without ascites Is this a current diagnosis for this admission?: Yes (4) Chronic obstructive pulmonary disease Qualifiers: COPD type: unspecified COPD Qualified Code(s): J44.9 - Chronic obstructive pulmonary disease, unspecified Is this a current diagnosis for this admission?: Yes (5) Deep vein thrombosis (DVT) of axillary vein of right upper extremity Qualifiers: Chronicity: acute Qualified Code(s): I82.A11 - Acute embolism and thrombosis of right axillary vein Is this a current diagnosis for this admission?: Yes (6) Thrombocytopenia Is this a current diagnosis for this admission?: Yes (7) Anemia Qualifiers: Anemia type: unspecified type Qualified Code(s): D64.9 - Anemia, unspecified Is this a current diagnosis for this admission?: Yes
--- NOTE | 2017-12-15 20:16 | PDOC DISCHARGE SUMMARY ---
General - Admit/Disc Date/PCP Admission Date/Primary Care Provider: 12/11/17 00:27 ABNER WILKINS MD Discharge Date: 12/16/17 - Discharge Diagnosis (1) Septicemia due to Streptococcus pneumonia Is this a current diagnosis for this admission?: Yes (2) Pneumonia involving right lung Is this a current diagnosis for this admission?: Yes (3) Alcoholic cirrhosis of liver Is this a current diagnosis for this admission?: Yes (4) Chronic obstructive pulmonary disease Is this a current diagnosis for this admission?: Yes (5) Deep vein thrombosis (DVT) of axillary vein of right upper extremity Is this a current diagnosis for this admission?: Yes (6) Thrombocytopenia Is this a current diagnosis for this admission?: Yes (7) Anemia Is this a current diagnosis for this admission?: Yes (8) Supraventricular tachycardia Is this a current diagnosis for this admission?: Yes - Additional Information Resuscitation Status: Full Code Prescriptions: RX: Carvedilol [Coreg 3.125 mg Tablet] 1 tab PO BID #60 tablet RX: Enoxaparin Sodium [Lovenox Inj 80 mg/0.8 ml Disp.syrin] 80 mg SUBCUT Q12A # 180 disp.syrin RX: Folic Acid 1 mg PO DAILY #90 tablet RX: Polyethylene Glycol 3350 [Miralax Powder 17 gm/Packet] 17 g PO DAILY PRN # 90 powd.pack PRN Reason: For Constipation RX: Quetiapine Fumarate 25 mg PO QPM #90 tablet RX: Thiamine Mononitrate (Vit B1) [Vitamin B-1] 100 mg PO DAILY #90 tablet Home Medications: RX: Melatonin 6 mg NG QPM 12/11/17 RX: Carvedilol [Coreg 3.125 mg Tablet] 1 tab PO BID #60 tablet 12/15/17 RX: Enoxaparin Sodium [Lovenox Inj 80 mg/0.8 ml Disp.syrin] 80 mg SUBCUT Q12A # 180 disp.syrin 12/15/17 RX: Folic Acid 1 mg PO DAILY #90 tablet 12/15/17 RX: Polyethylene Glycol 3350 [Miralax Powder 17 gm/Packet] 17 g PO DAILY PRN # 90 powd.pack 12/15/17 RX: Quetiapine Fumarate 25 mg PO QPM #90 tablet 12/15/17 RX: Thiamine Mononitrate (Vit B1) [Vitamin B-1] 100 mg PO DAILY #90 tablet 12/15 History of Present Illness History of Present Illness: MAAME SAENZ is a 52 year old female,She was transferred [facility] this [facility] 12[facility]2017 when she had septic shock associated with right lung pneumonia secondary to Streptococcus pneumonia. The blood culture was positive to Streptococcus pneumonia. She was transferred back to this hospital on 12/11/2017, the medical record was reviewed in detailed. She was extubated in [facility], she was slowly weaned off Lorazepam infusion, when she was transferred to [facility] from this hospital she was on Lorazepam infusion. She has anisocoria, proptosis of the left eye, this was evaluated in [facility], she was seen by ophthalmology, it was felt that the findings was more consistent with left fascial dependent edema due to patient positioning. Also noted was left conjunctival hemorrhage felt to be associated with history of liver cirrhosis. Before she was transferred to [facility] hospital she was found to have a large right pleural effusion, thoracentesis was not done in this hospital because of thrombocytopenia, at Critical access hospital this was not done either because it was felt that it was trace pleural effusion and thoracentesis was not indicated. She was also noted to have SVT felt to be secondary to sepsis she was started on Coreg she also have DVT of the right cephalic vein on the right internal jugular vein diagnosed on Doppler study, 06/2018 in the setting of left arm swelling, Lovenox was initiated because of this finding. Was seen by the bedside she was awake oriented, she has NG tube in place, the return from the NG tube was brownish colored Hospital Course Hospital Course: She was transfused with packed red blood cells for anemia, she was treated with IV antibiotic for pneumonia and septicemia.She was continue on Lovenox for deep vein thrombosis of the right upper extremity Physical Exam Vital Signs: Temp Pulse Resp BP Pulse Ox 99.2 F 82 18 138/80 H 93 12/15/17 19:19 12/15/17 19:19 12/15/17 19:19 12/15/17 19:19 12/15/17 19:19 Intake & Output 12/14/17 12/15/17 12/16/17 06:59 06:59 06:59 Intake Total 1781964 60 Balance 1780 1964 60 Weight 76.9 kg 79.6 kg General appearance: PRESENT: no acute distress, well-developed, well-nourished Head exam: PRESENT: atraumatic, normocephalic Eye exam: PRESENT: conjunctiva pink, EOMI, PERRLA Ear exam: PRESENT: normal external ear exam Mouth exam: PRESENT: moist, tongue midline Neck exam: PRESENT: full ROM Respiratory exam: PRESENT: clear to auscultation dawna Cardiovascular exam: PRESENT: RRR, +S1, +S2 Pulses: PRESENT: normal dorsalis pedis pul, +2 pedal pulses bilateral Vascular exam: PRESENT: normal capillary refill GI/Abdominal exam: PRESENT: normal bowel sounds, soft Rectal exam: PRESENT: deferred Neurological exam: PRESENT: alert, awake, oriented to person, oriented to place , oriented to time, oriented to situation, CN II-XII grossly intact Psychiatric exam: PRESENT: appropriate affect, normal mood Skin exam: PRESENT: dry, intact, warm Results Laboratory Results: 12/14/17 12:07 12/12/17 03:43 12/11/17 12/11/17 12/11/17 15:04 15:04 21:40 Creatine Kinase < 20 L < 20 L CK-MB (CK-2) < 0.22 Troponin I < 0.012 12/11/17 12/12/17 12/12/17 21:40 03:43 03:43 Creatine Kinase < 20 L CK-MB (CK-2) 0.27 0.23 Troponin I < 0.012 < 0.012 Impressions: Chest X-Ray 12/11/17 13:47 IMPRESSION: Significant improved aeration of the right lung over the previous study with residual volume loss in the right upper lobe and pleural reaction. Persistent concern for right hilar mass. Qualifiers - * PATIENT BEING DISCHARGED WITH ANY OF THE FOLLOWING DIAGNOSIS: No VTE patient discharged on overlapping Therapy?: Yes
[2017-12-16] MEDS: ENOXAPARIN SODIUM INJ 80 MG/0.8 ML DISP.SYRIN SUBCUT SCH (06:09)
[2017-12-16 08:23] VITALS: BP 125/70
[2017-12-16] MEDS: FOLIC ACID 1 MG TABLET PO SCH (10:00)
[2017-12-16] MEDS: THIAMINE HCL 100 MG TABLET PO SCH (10:00)
[2017-12-16] MEDS: CARVEDILOL 3.125 MG TABLET PO SCH (10:00)
[2017-12-16] MEDS: MEGESTROL ACETATE SUSP 400 MG/10 ML UDCUP PO SCH (10:01)
== END 2017-12-16 10:28 | disposition home health service (06) | DRG 871 ==
LOC: 4S 00:27 → 3W 12-13 03:30
PROVIDERS: ADMIT Internal Medicine; ATTEND Internal Medicine
PROC: 30233N1 Transfusion of Nonautologous Red Blood Cells into Peripheral Vein, Percutaneous Approach (ICD-10-PCS; principal; 2017-12-14)
DX: A40.3 Sepsis due to Streptococcus pneumoniae (principal); J13 Pneumonia due to Streptococcus pneumoniae; J44.0 Chronic obstructive pulmonary disease with (acute) lower respiratory infection; C85.90 Non-Hodgkin lymphoma, unspecified, unspecified site; I82.A11 Acute embolism and thrombosis of right axillary vein; I47.1 Supraventricular tachycardia; K70.30 Alcoholic cirrhosis of liver without ascites; J44.9 Chronic obstructive pulmonary disease, unspecified; D69.6 Thrombocytopenia, unspecified; D64.9 Anemia, unspecified; F17.210 Nicotine dependence, cigarettes, uncomplicated; F10.10 Alcohol abuse, uncomplicated; Z96.642 Presence of left artificial hip joint; F17.200 Nicotine dependence, unspecified, uncomplicated; H05.20 Unspecified exophthalmos; Z98.891 History of uterine scar from previous surgery; Z90.710 Acquired absence of both cervix and uterus; Z98.51 Tubal ligation status
CPT/HCPCS: 36415; 36430; 71045; 80053; 80061; 80307; 81001; 82140; 82150; 82550; 82553; 83036; 83690; 83735; 84100; 84443; 84484; 85025; 85610; 85730; 86850; 86900; 86901; 86920; 87040; 87086; J0696; J1650; J3490; P9016

== ENCOUNTER 2018-01-09 06:14 | Inpatient (IN) | payer MEDICAID ==
--- NOTE | 2018-01-09 06:36 | ER Document Report ---
ED General - General Stated Complaint: SHORTNESS OF BREATH Time Seen by Provider: 01/09/18 06:17 Mode of Arrival: Medic Information source: Patient, Emergency Med Personnel, [facility] Records Notes: 52-year-old female history of COPD multiple recent admissions for pneumonia including septicemia and intubation presents with complaints of shortness of breath. Patient notes she was discharged from the hospital approximately 3 weeks ago, notes over the past few days she has been having an off-white productive cough associated with shortness of breath. Patient is not on oxygen at home, she was initially found satting 91% by EMS was given to siena nebciara and 125 mg of Solu-Medrol TRAVEL OUTSIDE OF THE [place] IN LAST 30 DAYS: No - HPI Onset: Other - 2-3 day duration Onset/Duration: Worse Quality of pain: No pain Severity: Moderate Pain Level: Denies Associated symptoms: Nonproductive cough, Productive cough, Shortness of breath Exacerbated by: Movement, Walking, Coughing Relieved by: Denies Similar symptoms previously: Yes Recently seen / treated by doctor: Yes - Related Data Allergies/Adverse Reactions: No Known Allergies Allergy (Verified 04/25/17 18:37) Past Medical History - Social History Smoking Status: Unknown if Ever Smoked Cigarette use (# per day): No Chew tobacco use (# tins/day): No Smoking Education Provided: No Family History: Reviewed & Not Pertinent Pulmonary Medical History: Reports: Hx COPD Denies: Hx Tuberculosis Renal/ Medical History: Denies: Hx Peritoneal Dialysis Malignancy Medical History: Reports: Hx Lymphoma - History of non-Hodgkin's lymphoma Psychiatric Medical History: Denies: Hx Depression Past Surgical History: Reports: Hx Section, Hx Hysterectomy, Hx Orthopedic Surgery - Left hip replacement, right knee, Hx Tonsillectomy, Hx Tubal Ligation. Denies: Hx Pacemaker - Immunizations Hx Diphtheria, Pertussis, Tetanus Vaccination: Yes Review of Systems - Review of Systems Notes: REVIEW OF SYSTEMS: CONSTITUTIONAL : Denies fever, chills, or sweats. Denies recent illness. EENT: Denies eye, ear, throat, or mouth pain or symptoms. Denies nasal or sinus congestion or discharge. Denies throat, tongue, or mouth swelling or difficulty swallowing. CARDIOVASCULAR: Denies chest pain. Denies palpitations or racing or irregular heart beat. Denies ankle edema. RESPIRATORY: Shortness breath difficulty breathing GASTROINTESTINAL: Denies abdominal pain or distention. Denies nausea, vomiting , or diarrhea. Denies blood in vomitus, stools, or per rectum. Denies black, tarry stools. Denies constipation. GENITOURINARY: Denies difficulty urinating, painful urination, burning, frequency, blood in urine, or discharge. FEMALE GENITOURINARY: Denies vaginal bleeding, heavy or abnormal periods, irregular periods. Denies vaginal discharge or odor. MUSCULOSKELETAL: Denies back or neck pain or stiffness. Denies joint pain or swelling. SKIN: Denies rash, lesions or sores. HEMATOLOGIC : Denies easy bruising or bleeding. LYMPHATIC: Denies swollen, enlarged glands. NEUROLOGICAL: Denies confusion or altered mental status. Denies passing out or loss of consciousness. Denies dizziness or lightheadedness. Denies headache. Denies weakness or paralysis or loss of use of either side. Denies problems with gait or speech. Denies sensory loss, numbness, or tingling. Denies seizures. PSYCHIATRIC: Denies anxiety or stress. Denies depression, suicidal ideation, or homicidal ideation. ALL OTHER SYSTEMS REVIEWED AND NEGATIVE. PHYSICAL EXAMINATION: GENERAL: Well-appearing, well-nourished and in no acute distress. Patient is on nasal cannula 2 L HEAD: Atraumatic, normocephalic. EYES: Pupils equal round and reactive to light, extraocular movements intact, conjunctiva are normal. ENT: Nares patent, oropharynx clear without exudates. Moist mucous membranes. NECK: Normal range of motion, supple without lymphadenopathy LUNGS: Coarse breath sounds all throughout HEART: Tachycardic ABDOMEN: Soft, nontender, nondistended abdomen. No guarding, no rebound. No masses appreciated. Female : deferred Musculoskeletal: Normal range of motion, no pitting or edema. No cyanosis. NEUROLOGICAL: Cranial nerves grossly intact. Normal speech, normal gait. Normal sensory, motor exams PSYCH: Normal mood, normal affect. SKIN: Warm, Dry, normal turgor, no rashes or lesions noted. Dictation was performed using [employer] voice recognition software Physical Exam - Vital signs Vitals: Temp Resp Pulse Ox 99.0 F 27 H 98 01/09/18 06:20 01/09/18 06:20 01/09/18 06:20 Course - Re-evaluation Re-evalutation: 01/09/18 08:22 Patient has no white count elevation, chest x-ray notes just chronic changes, she is doing well on oxygen, but continues to be tachycardic, patient states is normal for her, I did speak with her primary care physician will observe in the hospital for COPD exacerbation - Vital Signs Vital signs: Temp Pulse Resp BP Pulse Ox 99.0 F 22 H 139/83 H 96 01/09/18 06:20 01/09/18 07:01 01/09/18 07:00 01/09/18 07:01 - Laboratory Result Diagrams: 01/09/18 06:52 01/09/18 06:52 Laboratory results interpreted by me: 01/09/18 01/09/18 01/09/18 06:52 06:52 06:52 RBC 3.38 L MCV 107 H D MCH 36.7 H RDW 23.4 H Lymphocytes % 12.9 L VBG HCO3 19.4 L Chloride 109 H Carbon Dioxide 19 L Glucose 111 H Total Bilirubin 1.5 H Direct Bilirubin 1.1 H AST 40 H - Diagnostic Test Radiology reviewed: Image reviewed - Chest x-ray one view notes chronic opacities streaking, Reports reviewed Discharge - Discharge Clinical Impression: COPD exacerbation Condition: Stable Disposition: ADMITTED INPATIENT Admitting Provider: Kalen Unit Admitted: IMCU Referrals: ABNER WILKINS MD [Primary Care Provider] - Follow up as needed
--- NOTE | 2018-01-09 06:48 | RADIOLOGY REPORT (SQ) ---
EXAM DESCRIPTION: XR CHEST 1 VIEW COMPLETED DATE/TME: 01/09/2018 06:19 CLINICAL HISTORY: 52 years Female, sob COMPARISON: One day prior. NUMBER OF VIEWS/TECHNIQUE: 1/AP FINDINGS: Moderate streaky opacities scar of the right upper lobe and right upper pleura, moderate right lung volume, prominent interstitium, normal cardiac silhouette size, atherosclerosis. No pneumothorax. No acute bone defect. IMPRESSION: No significant change.
[2018-01-09 07:14] LABS: ABSOLUTE BASOPHILS # (AUTO) 0.1 10^3/uL (0.0-0.2); ABSOLUTE EOSINOPHILS # (AUTO) 0.1 10^3/uL (0.0-0.6); ABSOLUTE LYMPHOCYTES (AUTO) 1.2 10^3/uL (0.5-4.7); ABSOLUTE MONOCYTES (AUTO) 0.7 10^3/uL (0.1-1.4); ABSOLUTE NEUT (AUTO) 7.4 10^3/uL (1.7-8.2); BASOPHILS % (AUTO) 0.7 % (0-2); EOSINOPHILS % (AUTO) 1.2 % (0-6); HEMATOCRIT 36.2 % (36.0-47.0); HEMOGLOBIN 12.4 g/dL (12.0-15.5); LYMPHOCYTES % (AUTO) 12.9 % (13-45); MEAN CORPUSCULAR HEMOGLOBIN 36.7 pg (27.0-33.4); MEAN CORPUSCULAR HGB CONC 34.3 g/dL (32.0-36.0); MONOCYTES % (AUTO) 7.7 % (3-13); PLATELET COUNT 168 10^3/uL (150-450); RED BLOOD COUNT 3.38 10^6/uL (3.72-5.28); RED CELL DISTRIBUTION WIDTH 23.4 % (11.5-14.0); SEGMENTED NEUTROPHILS % (AUTO) 77.5 % (42-78); TOTAL CELLS COUNTED % (AUTO) 100 %; VENOUS BLOOD BASE EXCESS -5.7 mmol/L; VENOUS BLOOD HCO3 19.4 mmol/L (20-32); VENOUS BLOOD PCO2 36.8 mmHg (35-63); VENOUS BLOOD PH 7.34 (7.30-7.42); WHITE BLOOD COUNT 9.5 10^3/uL (4.0-10.5)
[2018-01-09 07:25] LABS: INTERNATIONAL RATION (INR) 1.12; PROTHROMBIN TIME 14.9 SEC (11.4-15.4)
[2018-01-09 07:29] LABS: MEAN CORPUSCULAR VOLUME 107 fl (80-97)
[2018-01-09 07:36] LABS: ALANINE AMINOTRANSFERASE 19 U/L (9-52); ALKALINE PHOSPHATASE 121 U/L (38-126); ANION GAP 14 (5-19); ASPARTATE AMINO TRANSFERASE 40 U/L (14-36); BILIRUBIN,DIRECT 1.1 mg/dL (0.0-0.4); BILIRUBIN,TOTAL 1.5 mg/dL (0.2-1.3); BLOOD UREA NITROGEN 15 mg/dL (7-20); CALCIUM 10.1 mg/dL (8.4-10.2); CARBON DIOXIDE 19 mmol/L (22-30); CHLORIDE 109 mmol/L (98-107); GLUCOSE 111 mg/dL (75-110); POTASSIUM 4.6 mmol/L (3.6-5.0); SODIUM 141.7 mmol/L (137-145); TOTAL PROTEIN 8.2 g/dL (6.3-8.2)
[2018-01-09] MEDS: NORMAL SALINE 1000 ML 1,000 ML IV PRN ×3 (07:52→15:03)
[2018-01-09 08:02] LABS: ANISOCYTOSIS 3+; PLATELET COMMENT ADEQUATE; POLYCHROMASIA SLIGHT
[2018-01-09] MEDS ORDERED: ACETAMINOPHEN 325 MG TABLET PO ONE (08:46)
[2018-01-09] MEDS ORDERED: IPRATROPIUM/ALBUTEROL 0.5-2.5 MG/3 ML AMPUL NEB ONE (08:56)
[2018-01-09 10:17] LABS: APPEARANCE,URINE CLEAR; BILIRUBIN,URINE NEGATIVE (NEGATIVE); COLOR,URINE YELLOW; GLUCOSE, URINE NEGATIVE (NEGATIVE); KETONES,URINE NEGATIVE (NEGATIVE); LEUKOCYTE ESTERASE,URINE NEGATIVE (NEGATIVE); NITRITE,URINE NEGATIVE (NEGATIVE); PROTEIN,URINE 100 mg/dL (NEGATIVE); URINE SPECIFIC GRAVITY 1.013; UROBILINOGEN,URINE NEGATIVE mg/dL (<2.0)
[2018-01-09 10:48] LABS: URINE AMPHETAMINES SCREEN NEGATIVE; URINE BARBITURATES SCREEN NEGATIVE; URINE BENZODIAZEPINES SCREEN NEGATIVE; URINE MARIJUANA (THC) SCREEN NEGATIVE; URINE METHADONE SCREEN NEGATIVE; URINE PHENCYCLIDINE SCREEN NEGATIVE
[2018-01-09 10:53] LABS: URINE COCAINE SCREEN UNCONFIRMED POSITIVE
[2018-01-09] MEDS ORDERED: IPRATROPIUM/ALBUTEROL 0.5-2.5 MG/3 ML AMPUL NEB PRN (10:53)
[2018-01-09] MEDS ORDERED: ALBUTEROL SULFATE 0.083% NEB 2.5 MG/3 ML AMPUL NEB PRN ×2 (11:44→13:16)
[2018-01-09] MEDS ORDERED: (PENDING PHARMACY ID) (Enoxaparin Sodium 80 MG) SQ SCH (11:45)
[2018-01-09] MEDS ORDERED: (PENDING PHARMACY ID) (Megestrol Acetate [Megestrol Acetate] 20 ML) PO SCH (11:45)
[2018-01-09 12:18] LABS: UR PRO/CREAT RATIO RESULT 1.4 mg/mg (0.0-0.2); URINE CREATININE 56.4 mg/dL (15-278); URINE PROTEIN 79.8 mg/dL (<12)
[2018-01-09 12:43] LABS: ARTERIAL BLOOD BASE EXCESS -7.3 mmol/L; ARTERIAL BLOOD FIO2 30%; ARTERIAL BLOOD H2CO3 1.21 mmol/L (1.05-1.35); ARTERIAL BLOOD HCO3 18.8 mmol/L (20-26); ARTERIAL BLOOD O2 SATURATION 85.3 % (94-98); ARTERIAL BLOOD PCO2 40.1 mmHg (35-45); ARTERIAL BLOOD PH 7.29 (7.35-7.45); ARTERIAL BLOOD PO2 55.2 mmHg (80-100)
[2018-01-09] MEDS ORDERED: FOLIC ACID 1 MG TABLET PO ONE (13:00)
--- NOTE | 2018-01-09 13:56 | RADIOLOGY REPORT (SQ) ---
EXAM DESCRIPTION: CT CHEST WITHOUT COMPLETED DATE/TIME: 01/09/2018 1:02 pm REASON FOR STUDY: pneumonia COMPARISON: 11/28/2017. 05/21/2016. Recent radiographs to include portable chest film from earlier today. TECHNIQUE: CT scan performed of the chest without intravenous contrast. Images reviewed with lung, soft tissue and bone windows. Reconstructed coronal and sagittal MPR images reviewed. All images st ored on PACS. All CT scanners at this facility use dose modulation, iterative reconstruction, and/or weight based d osing when appropriate to reduce radiation dose to as low as reasonably achievable (ALARA). [facility]: Dose Right [facility]: CareDose [facility]: Dose Right [facility]: Teradose 4D [facility]: [employer] RADIATION DOSE: CT Rad equipment meets quality standard of care and radiation dose reduction techniq ues were employed. CTDIvol: 6.6 mGy. DLP: 254 mGy-cm. mGy. LIMITATIONS: No technical limitations. FINDINGS: LUNGS AND PLEURA: Chronic scarring with volume loss and bronchiectasis in the right upper lobe this has not changed significantly since 2015. The lungs otherwise look fairly clear, minimal a reas of scarring. No new areas of infiltrate detected. No significant pleural fluid. HILAR AND MEDIASTINAL STRUCTURES: No gross progression in small nodes in the mediastinum and hilar st ations. HEART AND VASCULAR STRUCTURES: Pericardial effusion, relatively stable. No aortic aneurysm. UPPER ABDOMEN: Chronic stranding about the kidneys with slight fullness in the right renal collecting system. This looks grossly unchanged. Incompletely assessed. THYROID AND OTHER SOFT TISSUES: No masses. No adenopathy. BONES: Osteopenic. Chronic appearing multiple compression deformities. HARDWARE: None in the chest. OTHER: No other significant findings. IMPRESSION: 1. Relatively chronic lung changes, doubt significant change compared to priors as above . No new infiltrates. TECHNICAL DOCUMENTATION: JOB ID: [id number] Quality ID # [id number]: Final reports with documentation of one or more dose reduction techniques (e.g., Au tomated exposure control, adjustment of the mA and/or kV according to patient size, use of iterative reconstruction technique) 2010 [employer]- All Rights Reserved Reading location - IP/workstation name: [email or web address]
[2018-01-09] MEDS ORDERED: CARVEDILOL 3.125 MG TABLET PO ONE (14:00)
[2018-01-09] MEDS ORDERED: MEGESTROL ACETATE SUSP 400 MG/10 ML UDCUP PO ONE (14:00)
[2018-01-09] MEDS ORDERED: ENOXAPARIN SODIUM INJ 80 MG/0.8 ML DISP.SYRIN SUBCUT ONE (14:00)
[2018-01-09] MEDS ORDERED: POLYETHYLENE GLYCOL 3350 POWDER 17 GM/1 PACKET PO ONE (14:00)
[2018-01-09 14:28] LABS: INTERNATIONAL RATION (INR) 1.06; PROTHROMBIN TIME 14.4 SEC (11.4-15.4)
[2018-01-09 14:29] LABS: C-REACTIVE PROTEIN 20.7 mg/L (<10.0); LIPASE 238.9 U/L (23-300); PARTIAL THROMBOPLASTIN TIME 39.1 SEC (23.5-35.8); PHOSPHORUS 4.8 mg/dL (2.5-4.5)
[2018-01-09 14:39] LABS: CREATINE KINASE MB 0.86 ng/mL (<4.55)
[2018-01-09 14:43] LABS: FREE T4 (FREE THYROXINE) 1.06 ng/dL (0.78-2.19); TROPONIN I < 0.012 ng/mL
[2018-01-09 14:56] LABS: THYROID STIMULATING HORMONE 0.54 uIU/mL (0.47-4.68)
[2018-01-09] MEDS ORDERED: LEVOFLOXACIN 750 MG/D5W RTU 750 MG/150 ML RTUPB IV ONE (15:00)
[2018-01-09] MEDS: MAGNESIUM SULFATE/D5W 1 GM/100 ML RTUPB IV SCH ×2 (17:43→20:09)
--- NOTE | 2018-01-09 19:17 | PDOC H&P ---
History of Present Illness Admission Date/PCP: 01/09/18 08:31 ABNER WILKINS MD History of Present Illness: MAAME SAENZ is a 52 year old female,She came to the emergency room for evaluation of shortness of breath.I saw her in the office on Wednesday when she came for evaluation of intertrigo affecting the groin and the sub-mammillary skin. She was recently admitted in this hospital last month when she had Streptococcus pneumonia sepsis with septic shock requiring mechanical ventilation, hospital course was prolonged, she also was transferred to tertiary care at [facility] because of family request. She told me she has stopped smoking and drinking alcohol but the urine toxicology study was positive for cocaine. CT chest without contrast was done, it showed chronic scarring with volume loss and bronchiectasis in the right upper lobe this is no change since 2016 the lung otherwise looks clear.ABG on FiO2 30%, PO2 55.2 PCO2 40 pH 7.2 bicarbonate 18.2 this is consistent with severe hypoxemia with metabolic acidosis. The last time she was admitted she had deep vein thrombosis of the right upper extremity, presently on Lovenox subcu every 12 for 3 months she told me she is compliant,if she is compliant pulmonary embolism is unlikely to be the etiology of the hypoxemia, the chest x-ray is not showing any new pneumonia that will explain the hypoxemia, CTA chest will be ordered to rule out PE, I am not sure how compliant this lady is, she is busy doing cocaine probably not taking her Lovenox as ordered. Past Medical History Cardiac Medical History: Reports: DVT Pulmonary Medical History: Reports: Chronic Obstructive Pulmonary Disease (COPD) Malignancy Medical History: Reports: Lymphoma - History of non-Hodgkin's lymphoma Psychiatric Medical History: Reports: Alcohol Dependency, Substance Abuse, Tobacco Dependency Hematology: Reports: Anemia Past Surgical History Past Surgical History: Reports: Section, Hysterectomy, Orthopedic Surgery - Left hip replacement, right knee, Tonsillectomy, Tubal Ligation Social History Smoking Status: Former Smoker Last Time Smoked: 6 months ago Frequency of Alcohol Use: Occasional Hx Recreational Drug Use: Yes Drugs: Cocaine Hx Prescription Drug Abuse: No Family History Family History: Reviewed & Not Pertinent Parental Family History Reviewed: Yes Children Family History Reviewed: Yes Sibling(s) Family History Reviewed.: Yes Medication/Allergy Home Medications: Albuterol Sulfate [Albuterol Sulfate 2.5mg/3 mL] 1 vial NEB TIDP PRN 01/09/18 Carvedilol [Coreg 3.125 mg Tablet] 3.125 mg PO Q12 01/09/18 Enoxaparin Sodium [Lovenox Inj 80 mg/0.8 ml Disp.syrin] 80 mg SQ Q12 01/09/18 Folic Acid [Folvite 1 mg Tablet] 1 mg PO DAILY 01/09/18 Megestrol Acetate 20 ml PO DAILY 01/09/18 Polyethylene Glycol 3350 [Miralax Powder 17 gm/Packet] 1 packet PO DAILY Quetiapine Fumarate [Seroquel 25 mg Tablet] 25 mg PO QHS 01/09/18 Ticagrelor [Brilinta] 60 mg PO Q12 01/09/18 Allergies/Adverse Reactions: No Known Allergies Allergy (Verified 04/25/17 18:37) Review of Systems Constitutional: ABSENT: chills, fever(s), headache(s), weight gain, weight loss Eyes: ABSENT: visual disturbances Ears: ABSENT: hearing changes Cardiovascular: ABSENT: chest pain, dyspnea on exertion, edema, orthropnea, palpitations Respiratory: PRESENT: cough, dyspnea Gastrointestinal: ABSENT: abdominal pain, constipation, diarrhea, hematemesis, hematochezia, nausea, vomiting Genitourinary: ABSENT: dysuria, hematuria Musculoskeletal: ABSENT: joint swelling Integumentary: ABSENT: rash, wounds Neurological: ABSENT: abnormal gait, abnormal speech, confusion, dizziness, focal weakness, syncope Psychiatric: ABSENT: anxiety, depression, homidical ideation, suicidal ideation Endocrine: ABSENT: cold intolerance, heat intolerance, menstrual abnormalities, polydipsia, polyuria Hematologic/Lymphatic: ABSENT: easy bleeding, easy bruising, lymphadenopathy Physical Exam Vital Signs: Temp Pulse Resp BP Pulse Ox 98.4 F 103 H 17 140/88 H 100 01/09/18 15:03 01/09/18 15:03 01/09/18 15:03 01/09/18 15:03 01/09/18 15:03 Intake & Output 01/08/18 01/09/18 01/10/18 06:59 06:59 06:59 Intake Total 218 Balance 218 Weight 66.6 kg General appearance: PRESENT: no acute distress, well-developed, well-nourished Head exam: PRESENT: atraumatic, normocephalic Eye exam: PRESENT: conjunctiva pink, EOMI, PERRLA Ear exam: PRESENT: normal external ear exam Mouth exam: PRESENT: moist, tongue midline Neck exam: PRESENT: full ROM Respiratory exam: PRESENT: rhonchi Cardiovascular exam: PRESENT: RRR, +S1, +S2 Pulses: PRESENT: normal dorsalis pedis pul, +2 pedal pulses bilateral Vascular exam: PRESENT: normal capillary refill GI/Abdominal exam: PRESENT: normal bowel sounds, soft Rectal exam: PRESENT: deferred Neurological exam: PRESENT: alert, awake, oriented to person, oriented to place , oriented to time, oriented to situation, CN II-XII grossly intact Psychiatric exam: PRESENT: appropriate affect, normal mood Skin exam: PRESENT: dry, intact, warm Results Laboratory Results: 01/09/18 01/09/18 01/09/18 09:30 12:05 13:50 Carbonic Acid 1.21 HCO3/H2CO3 Ratio 15:1 ABG pH 7.29 L ABG pCO2 40.1 ABG pO2 55.2 L ABG HCO3 18.8 L ABG O2 Saturation 85.3 L ABG Base Excess -7.3 FiO2 30% Lactic Acid 1.6 Phosphorus Magnesium Ammonia C-Reactive Protein Amylase Lipase TSH Free T4 Urine Color YELLOW Urine Appearance CLEAR Urine pH 5.0 Ur Specific [place] 1.013 Urine Protein 100 H Urine Glucose (UA) NEGATIVE Urine Ketones NEGATIVE Urine Blood SMALL H Urine Nitrite NEGATIVE Ur Leukocyte Esterase NEGATIVE Urine WBC (Auto) 1 Urine RBC (Auto) 1 01/09/18 01/09/18 01/09/18 13:50 13:50 13:50 Carbonic Acid HCO3/H2CO3 Ratio ABG pH ABG pCO2 ABG pO2 ABG HCO3 ABG O2 Saturation ABG Base Excess FiO2 Lactic Acid Phosphorus 4.8 H Magnesium 1.0 L* Ammonia 40.2 H C-Reactive Protein 20.7 H Amylase 110 Lipase 238.9 TSH 0.54 Free T4 1.06 Urine Color Urine Appearance Urine pH Ur Specific [place] Urine Protein Urine Glucose (UA) Urine Ketones Urine Blood Urine Nitrite Ur Leukocyte Esterase Urine WBC (Auto) Urine RBC (Auto) 01/09/18 01/09/18 13:50 13:50 CK-MB (CK-2) 0.86 Troponin I < 0.012 NT-Pro-B Natriuret Pep 443 Impressions: Chest CT 01/09/18 00:00 IMPRESSION: 1. Relatively chronic lung changes, doubt significant change compared to priors as above. No new infiltrates. Chest X-Ray 01/09/18 06:19 IMPRESSION: No significant change. Assessment & Plan - Diagnosis (1) Acute hypoxemic respiratory failure Is this a current diagnosis for this admission?: Yes Plan: Patient presently requiring noninvasive ventilation with BiPAP, The CTA was negative for pulmonary embolism, there is no pneumonia on the CTA, this is probably related to the cocaine abuse (2) Metabolic acidosis Is this a current diagnosis for this admission?: Yes Plan: This is most likely related to cocaine abuse (3) Deep vein thrombosis of axillary vein of right upper extremity Qualifiers: Chronicity: acute Qualified Code(s): I82.A11 - Acute embolism and thrombosis of right axillary vein Is this a current diagnosis for this admission?: Yes Plan: Continue Lovenox (4) Cocaine abuse Is this a current diagnosis for this admission?: Yes
[2018-01-09 20:24] LABS: CREATINE KINASE MB 0.96 ng/mL (<4.55)
[2018-01-09 20:28] LABS: TROPONIN I < 0.012 ng/mL
[2018-01-09] MEDS: QUETIAPINE FUMARATE 25 MG TABLET PO SCH (21:41)
[2018-01-09] MEDS: CARVEDILOL 3.125 MG TABLET PO SCH (21:41)
[2018-01-09] MEDS: ENOXAPARIN SODIUM INJ 80 MG/0.8 ML DISP.SYRIN SUBCUT SCH (21:41)
[2018-01-10 04:05] LABS: CREATINE KINASE MB 0.82 ng/mL (<4.55)
[2018-01-10 04:07] LABS: TROPONIN I < 0.012 ng/mL
[2018-01-10 06:46] LABS: APPEARANCE,URINE CLEAR; BILIRUBIN,URINE NEGATIVE (NEGATIVE); COLOR,URINE YELLOW; GLUCOSE, URINE NEGATIVE (NEGATIVE); KETONES,URINE NEGATIVE (NEGATIVE); LEUKOCYTE ESTERASE,URINE NEGATIVE (NEGATIVE); NITRITE,URINE NEGATIVE (NEGATIVE); PROTEIN,URINE NEGATIVE (NEGATIVE); URINE SPECIFIC GRAVITY 1.019; UROBILINOGEN,URINE NEGATIVE mg/dL (<2.0)
[2018-01-10 07:35] LABS: ABSOLUTE LYMPHOCYTES (AUTO) 1.5 10^3/uL (0.5-4.7); ABSOLUTE MONOCYTES (AUTO) 0.9 10^3/uL (0.1-1.4); ABSOLUTE NEUT (AUTO) 5.8 10^3/uL (1.7-8.2); BASOPHILS % (AUTO) 0.4 % (0-2); EOSINOPHILS % (AUTO) 0.2 % (0-6); HEMOGLOBIN 11.6 g/dL (12.0-15.5); LYMPHOCYTES % (AUTO) 18.4 % (13-45); MEAN CORPUSCULAR HEMOGLOBIN 36.8 pg (27.0-33.4); MEAN CORPUSCULAR HGB CONC 34.1 g/dL (32.0-36.0); MEAN CORPUSCULAR VOLUME 108 fl (80-97); MONOCYTES % (AUTO) 11.3 % (3-13); PLATELET COUNT 146 10^3/uL (150-450); RED BLOOD COUNT 3.16 10^6/uL (3.72-5.28); RED CELL DISTRIBUTION WIDTH 23.7 % (11.5-14.0); SEGMENTED NEUTROPHILS % (AUTO) 69.7 % (42-78); TOTAL CELLS COUNTED % (AUTO) 100 %; WHITE BLOOD COUNT 8.3 10^3/uL (4.0-10.5)
--- NOTE | 2018-01-10 07:48 | EKG REPORT ---
SEVERITY:- ABNORMAL ECG - SINUS TACHYCARDIA PROBABLE INFERIOR INFARCT, OLD : Confirmed by: Jhonatan French MD 10-Jan-2018 07:48:03
[2018-01-10 08:02] LABS: ALANINE AMINOTRANSFERASE 23 U/L (9-52); ALBUMIN 3.1 g/dL (3.5-5.0); ALKALINE PHOSPHATASE 90 U/L (38-126); ANION GAP 9 (5-19); ASPARTATE AMINO TRANSFERASE 27 U/L (14-36); BILIRUBIN,DIRECT 0.8 mg/dL (0.0-0.4); BILIRUBIN,TOTAL 0.8 mg/dL (0.2-1.3); BLOOD UREA NITROGEN 16 mg/dL (7-20); CALCIUM 9.5 mg/dL (8.4-10.2); CARBON DIOXIDE 20 mmol/L (22-30); CHLORIDE 111 mmol/L (98-107); GLUCOSE 91 mg/dL (75-110); SODIUM 140.4 mmol/L (137-145); TOTAL PROTEIN 6.8 g/dL (6.3-8.2)
[2018-01-10 08:08] LABS: ANISOCYTOSIS 2+; POIKILOCYTOSIS 2+
[2018-01-10 08:09] LABS: PLATELET COMMENT ADEQUATE
--- NOTE | 2018-01-10 08:56 | RADIOLOGY REPORT (SQ) ---
EXAM DESCRIPTION: CTA CHEST COMPLETED DATE/TIME: 01/09/2018 7:13 pm REASON FOR STUDY: unexplained hypoxemia COMPARISON: CT chest 01/09/2018, 11/28/2017, 09/10/2017 TECHNIQUE: CT scan of the chest performed using helical scanning technique with dynamic intravenous contrast injection. Images reviewed with lung, soft tissue and bone windows. Reconstructed coronal and sagittal MPR images reviewed. Additional 3 dimensional post-processing performed to develop Maximal Intensity Projection images ([place] P). All images stored on PACS. All CT scanners at this facility use dose modulation, iterative reconstruction, and/or weight based d osing when appropriate to reduce radiation dose to as low as reasonably achievable (ALARA). [facility]: Dose Right [facility]: CareDose [facility]: Dose Right [facility]: Teradose 4D [facility]: Qwilr CONTRAST TYPE AND DOSE: contrast/concentration: Isovue 370.00 mg/ml; Total Contrast Delivered: 66.0 ml; Total Saline Delivered: 99.9 ml Contrast bolus adequate for pulmonary arteries and aorta. RENAL FUNCTION: Creatinine 0.85 RADIATION DOSE: CT Rad equipment meets quality standard of care and radiation dose reduction techniq ues were employed. CTDIvol: 3.3 - 29.8 mGy. DLP: 526 mGy-cm. . LIMITATIONS: Lung apices are cropped from the field of view FINDINGS: LUNGS AND PLEURA: Stable post therapeutic bandlike scarring in the right lung apex and rig ht perihilar regions. No acute infiltrates. No pleural effusion. No pneumothorax. AORTA AND GREAT VESSELS: No aneurysm. Contrast bolus not optimized for the aorta. HEART: No pericardial effusion. No significant coronary artery calcifications. PULMONARY ARTERIES: No emboli visualized in the main pulmonary arteries or the segmental branches. HILAR AND MEDIASTINAL STRUCTURES: No identified masses or abnormal nodes. HARDWARE: None in the chest. UPPER ABDOMEN: No significant findings. Limited exam. THYROID AND OTHER SOFT TISSUES: No masses. No adenopathy. BONES: Osteopenic with multiple upper endplate compressions in the thoracic spine 3D MIPS: Confirm above findings. OTHER: No other significant finding. IMPRESSION: No CT angio evidence of acute pulmonary emboli. COMMENT: Quality ID # [id number]: Final reports with documentation of one or more dose reduction techniques (e.g., Automated exposure control, adjustment of the mA and/or kV according to patient size, use of iterative reconstruction technique) TECHNICAL DOCUMENTATION: JOB ID: [id number] [employer]- All Rights Reserved Reading location - IP/workstation name: [email or web address]
[2018-01-10] MEDS: FOLIC ACID 1 MG TABLET PO SCH (09:56)
[2018-01-10] MEDS: LEVOFLOXACIN 750 MG/D5W RTU 750 MG/150 ML RTUPB IV SCH (09:56)
[2018-01-10] MEDS: CARVEDILOL 3.125 MG TABLET PO SCH ×2 (09:56→22:44)
[2018-01-10] MEDS: ENOXAPARIN SODIUM INJ 80 MG/0.8 ML DISP.SYRIN SUBCUT SCH ×2 (09:56→22:42)
[2018-01-10] MEDS: POLYETHYLENE GLYCOL 3350 POWDER 17 GM/1 PACKET PO SCH (09:57)
[2018-01-10] MEDS: MEGESTROL ACETATE SUSP 400 MG/10 ML UDCUP PO SCH (09:57)
[2018-01-10] MEDS ORDERED: MEGESTROL ACETATE SUSP 400 MG/10 ML UDCUP PO SCH (10:00)
[2018-01-10 21:00] LABS: ARTERIAL BLOOD BASE EXCESS -4.2 mmol/L; ARTERIAL BLOOD FIO2 30%; ARTERIAL BLOOD H2CO3 1.43 mmol/L (1.05-1.35); ARTERIAL BLOOD HCO3 22.5 mmol/L (20-26); ARTERIAL BLOOD O2 SATURATION 94.8 % (94-98); ARTERIAL BLOOD PCO2 47.4 mmHg (35-45); ARTERIAL BLOOD PH 7.29 (7.35-7.45); ARTERIAL BLOOD PO2 81.7 mmHg (80-100); ARTERIAL BLOOD TOTAL CO2 23.9 mmol/L (21-25)
--- NOTE | 2018-01-10 21:04 | PDOC PROGRESS REPORT ---
Subjective Progress Note for:: 01/10/18 Subjective:: Patient continues to require noninvasive ventilation with BiPAP Reason For Visit: ACUTE HYPOXEMIC RESPIRATORY FAILURE,PNEUMONIA, Physical Exam Vital Signs: Temp Pulse Resp BP Pulse Ox 97.9 F 92 21 H 130/88 H 100 01/10/18 19:33 01/10/18 19:33 01/10/18 19:33 01/10/18 19:33 01/10/18 19:33 Intake & Output 01/09/18 01/10/18 01/11/18 06:59 06:59 06:59 Intake Total 1311 2282 Output Total 400 Balance 1311 1882 Weight 72.9 kg General appearance: PRESENT: no acute distress Eye exam: PRESENT: PERRLA Respiratory exam: PRESENT: rhonchi Cardiovascular exam: PRESENT: +S1, +S2 GI/Abdominal exam: PRESENT: soft Neurological exam: PRESENT: alert Results Laboratory Results: 01/10/18 06:26 01/10/18 06:26 01/10/18 01/10/18 01/10/18 06:26 06:26 06:26 WBC 8.3 RBC 3.16 L Hgb 11.6 L Hct 34.0 L MCV 108 H MCH 36.8 H MCHC 34.1 RDW 23.7 H Plt Count 146 L Seg Neutrophils % 69.7 Lymphocytes % 18.4 Monocytes % 11.3 Eosinophils % 0.2 Basophils % 0.4 Absolute Neutrophils 5.8 Absolute Lymphocytes 1.5 Absolute Monocytes 0.9 Absolute Eosinophils 0.0 Absolute Basophils 0.0 Carbonic Acid HCO3/H2CO3 Ratio ABG pH ABG pCO2 ABG pO2 ABG HCO3 ABG O2 Saturation ABG Base Excess FiO2 Sodium 140.4 Potassium 5.0 Chloride 111 H Carbon Dioxide 20 L Anion Gap 9 BUN 16 Creatinine 0.83 Est GFR ( Amer) > 60 Est GFR (Non-Af Amer) > 60 Glucose 91 Calcium 9.5 Magnesium 1.4 L Total Bilirubin 0.8 AST 27 ALT 23 Alkaline Phosphatase 90 Total Protein 6.8 Albumin 3.1 L Urine Color Urine Appearance Urine pH Ur Specific [place] Urine Protein Urine Glucose (UA) Urine Ketones Urine Blood Urine Nitrite Ur Leukocyte Esterase Urine WBC (Auto) Urine RBC (Auto) 01/10/18 01/10/18 06:35 20:30 WBC RBC Hgb Hct MCV MCH MCHC RDW Plt Count Seg Neutrophils % Lymphocytes % Monocytes % Eosinophils % Basophils % Absolute Neutrophils Absolute Lymphocytes Absolute Monocytes Absolute Eosinophils Absolute Basophils Carbonic Acid 1.43 H HCO3/H2CO3 Ratio 15:1 ABG pH 7.29 L ABG pCO2 47.4 H ABG pO2 81.7 ABG HCO3 22.5 ABG O2 Saturation 94.8 ABG Base Excess -4.2 FiO2 30% Sodium Potassium Chloride Carbon Dioxide Anion Gap BUN Creatinine Est GFR ( Amer) Est GFR (Non-Af Amer) Glucose Calcium Magnesium Total Bilirubin AST ALT Alkaline Phosphatase Total Protein Albumin Urine Color YELLOW Urine Appearance CLEAR Urine pH 6.0 Ur Specific [place] 1.019 Urine Protein NEGATIVE Urine Glucose (UA) NEGATIVE Urine Ketones NEGATIVE Urine Blood NEGATIVE Urine Nitrite NEGATIVE Ur Leukocyte Esterase NEGATIVE Urine WBC (Auto) 0 Urine RBC (Auto) 1 01/09/18 01/09/18 01/09/18 13:50 13:50 19:44 CK-MB (CK-2) 0.86 0.96 Troponin I < 0.012 < 0.012 NT-Pro-B Natriuret Pep 443 01/10/18 01:30 CK-MB (CK-2) 0.82 Troponin I < 0.012 NT-Pro-B Natriuret Pep Impressions: Chest CT 01/09/18 00:00 IMPRESSION: 1. Relatively chronic lung changes, doubt significant change compared to priors as above. No new infiltrates. Chest/Abdomen CTA 01/09/18 00:00 IMPRESSION: No CT angio evidence of acute pulmonary emboli. Chest X-Ray 01/09/18 06:19 IMPRESSION: No significant change. Assessment & Plan - Diagnosis (1) Acute hypoxemic respiratory failure Is this a current diagnosis for this admission?: Yes (2) Metabolic acidosis Is this a current diagnosis for this admission?: Yes (3) Deep vein thrombosis of axillary vein of right upper extremity Qualifiers: Chronicity: acute Qualified Code(s): I82.A11 - Acute embolism and thrombosis of right axillary vein Is this a current diagnosis for this admission?: Yes (4) Cocaine abuse Is this a current diagnosis for this admission?: Yes
[2018-01-10] MEDS: QUETIAPINE FUMARATE 25 MG TABLET PO SCH (22:44)
[2018-01-11 05:54] LABS: ABSOLUTE BASOPHILS # (AUTO) 0.1 10^3/uL (0.0-0.2); ABSOLUTE EOSINOPHILS # (AUTO) 0.1 10^3/uL (0.0-0.6); ABSOLUTE LYMPHOCYTES (AUTO) 2.2 10^3/uL (0.5-4.7); ABSOLUTE MONOCYTES (AUTO) 0.6 10^3/uL (0.1-1.4); ABSOLUTE NEUT (AUTO) 4.1 10^3/uL (1.7-8.2); BASOPHILS % (AUTO) 0.8 % (0-2); EOSINOPHILS % (AUTO) 1.2 % (0-6); HEMATOCRIT 35.4 % (36.0-47.0); HEMOGLOBIN 11.8 g/dL (12.0-15.5); LYMPHOCYTES % (AUTO) 31.1 % (13-45); MEAN CORPUSCULAR HEMOGLOBIN 36.2 pg (27.0-33.4); MEAN CORPUSCULAR HGB CONC 33.5 g/dL (32.0-36.0); MEAN CORPUSCULAR VOLUME 108 fl (80-97); MONOCYTES % (AUTO) 9.1 % (3-13); PLATELET COUNT 152 10^3/uL (150-450); RED BLOOD COUNT 3.27 10^6/uL (3.72-5.28); RED CELL DISTRIBUTION WIDTH 23.6 % (11.5-14.0); SEGMENTED NEUTROPHILS % (AUTO) 57.8 % (42-78); TOTAL CELLS COUNTED % (AUTO) 100 %
[2018-01-11] MEDS: NORMAL SALINE 1000 ML 1,000 ML IV PRN ×2 (06:10→19:11)
[2018-01-11 06:11] LABS: ALANINE AMINOTRANSFERASE 19 U/L (9-52); ALBUMIN 2.9 g/dL (3.5-5.0); ALKALINE PHOSPHATASE 79 U/L (38-126); ANION GAP 10 (5-19); ASPARTATE AMINO TRANSFERASE 28 U/L (14-36); BILIRUBIN,DIRECT 0.7 mg/dL (0.0-0.4); BILIRUBIN,TOTAL 0.7 mg/dL (0.2-1.3); BLOOD UREA NITROGEN 18 mg/dL (7-20); CALCIUM 9.5 mg/dL (8.4-10.2); CARBON DIOXIDE 18 mmol/L (22-30); CHLORIDE 113 mmol/L (98-107); GLUCOSE 92 mg/dL (75-110); POTASSIUM 4.7 mmol/L (3.6-5.0); SODIUM 141.1 mmol/L (137-145); TOTAL PROTEIN 6.6 g/dL (6.3-8.2)
[2018-01-11] MEDS: CARVEDILOL 3.125 MG TABLET PO SCH ×2 (09:57→21:42)
[2018-01-11] MEDS: FOLIC ACID 1 MG TABLET PO SCH (09:57)
[2018-01-11] MEDS: MEGESTROL ACETATE SUSP 400 MG/10 ML UDCUP PO SCH (09:58)
[2018-01-11] MEDS: ENOXAPARIN SODIUM INJ 80 MG/0.8 ML DISP.SYRIN SUBCUT SCH ×2 (09:58→21:42)
[2018-01-11] MEDS: LEVOFLOXACIN 750 MG/D5W RTU 750 MG/150 ML RTUPB IV SCH (10:01)
[2018-01-11] MEDS: POLYETHYLENE GLYCOL 3350 POWDER 17 GM/1 PACKET PO SCH (10:05)
[2018-01-11] MEDS: QUETIAPINE FUMARATE 25 MG TABLET PO SCH (21:42)
--- NOTE | 2018-01-11 22:21 | PDOC PROGRESS REPORT ---
Subjective Progress Note for:: 01/11/18 Subjective:: She was seen by the bedside, she continues to require noninvasive positive pressure ventilation the acute hypoxemic respiratory failure is not from pneumonia, not from PE it is cocaine related Reason For Visit: ACUTE HYPOXEMIC RESPIRATORY FAILURE,PNEUMONIA, Physical Exam Vital Signs: Temp Pulse Resp BP Pulse Ox 97.7 F 91 19 110/73 100 01/11/18 16:02 01/11/18 16:02 01/11/18 16:02 01/11/18 16:02 01/11/18 16:02 Intake & Output 01/10/18 01/11/18 01/12/18 06:59 06:59 06:59 Intake Total 1311 3812 2624 Output Total 900 200 Balance 1311 2912 2424 Weight 72.9 kg 72.4 kg General appearance: PRESENT: no acute distress Eye exam: PRESENT: PERRLA Respiratory exam: PRESENT: rhonchi Cardiovascular exam: PRESENT: +S1, +S2 GI/Abdominal exam: PRESENT: soft Neurological exam: PRESENT: alert Results Laboratory Results: 01/11/18 05:28 01/11/18 05:28 01/11/18 01/11/18 05:28 05:28 WBC 7.0 RBC 3.27 L Hgb 11.8 L Hct 35.4 L MCV 108 H MCH 36.2 H MCHC 33.5 RDW 23.6 H Plt Count 152 Seg Neutrophils % 57.8 Lymphocytes % 31.1 Monocytes % 9.1 Eosinophils % 1.2 Basophils % 0.8 Absolute Neutrophils 4.1 Absolute Lymphocytes 2.2 Absolute Monocytes 0.6 Absolute Eosinophils 0.1 Absolute Basophils 0.1 Sodium 141.1 Potassium 4.7 Chloride 113 H Carbon Dioxide 18 L Anion Gap 10 BUN 18 Creatinine 0.79 Est GFR ( Amer) > 60 Est GFR (Non-Af Amer) > 60 Glucose 92 Calcium 9.5 Total Bilirubin 0.7 AST 28 ALT 19 Alkaline Phosphatase 79 Total Protein 6.6 Albumin 2.9 L 01/09/18 09:30 Clean Catch Midstream Urine Culture - Final Escherichia Coli Mixed Urogenital Uzma 01/09/18 01/09/18 01/09/18 13:50 13:50 19:44 CK-MB (CK-2) 0.86 0.96 Troponin I < 0.012 < 0.012 NT-Pro-B Natriuret Pep 443 01/10/18 01:30 CK-MB (CK-2) 0.82 Troponin I < 0.012 NT-Pro-B Natriuret Pep Impressions: Chest CT 01/09/18 00:00 IMPRESSION: 1. Relatively chronic lung changes, doubt significant change compared to priors as above. No new infiltrates. Chest/Abdomen CTA 01/09/18 00:00 IMPRESSION: No CT angio evidence of acute pulmonary emboli. Chest X-Ray 01/09/18 06:19 IMPRESSION: No significant change. Assessment & Plan - Diagnosis (1) Acute hypoxemic respiratory failure Is this a current diagnosis for this admission?: Yes (2) Metabolic acidosis Is this a current diagnosis for this admission?: Yes (3) Deep vein thrombosis of axillary vein of right upper extremity Qualifiers: Chronicity: acute Qualified Code(s): I82.A11 - Acute embolism and thrombosis of right axillary vein Is this a current diagnosis for this admission?: Yes (4) Cocaine abuse Is this a current diagnosis for this admission?: Yes (5) E. coli UTI Is this a current diagnosis for this admission?: Yes Plan: Patient already on antibiotic Levaquin
[2018-01-12] MEDS: NORMAL SALINE 1000 ML 1,000 ML IV PRN (05:34)
[2018-01-12 06:56] LABS: ABSOLUTE EOSINOPHILS # (AUTO) 0.1 10^3/uL (0.0-0.6); ABSOLUTE LYMPHOCYTES (AUTO) 2.2 10^3/uL (0.5-4.7); ABSOLUTE MONOCYTES (AUTO) 0.7 10^3/uL (0.1-1.4); ABSOLUTE NEUT (AUTO) 4.2 10^3/uL (1.7-8.2); BASOPHILS % (AUTO) 0.7 % (0-2); EOSINOPHILS % (AUTO) 1.7 % (0-6); HEMATOCRIT 35.4 % (36.0-47.0); LYMPHOCYTES % (AUTO) 30.7 % (13-45); MEAN CORPUSCULAR HEMOGLOBIN 36.8 pg (27.0-33.4); MEAN CORPUSCULAR HGB CONC 33.8 g/dL (32.0-36.0); MEAN CORPUSCULAR VOLUME 109 fl (80-97); PLATELET COUNT 152 10^3/uL (150-450); RED BLOOD COUNT 3.25 10^6/uL (3.72-5.28); RED CELL DISTRIBUTION WIDTH 22.7 % (11.5-14.0); SEGMENTED NEUTROPHILS % (AUTO) 57.9 % (42-78); TOTAL CELLS COUNTED % (AUTO) 100 %; WHITE BLOOD COUNT 7.2 10^3/uL (4.0-10.5)
[2018-01-12 07:11] LABS: ALANINE AMINOTRANSFERASE 21 U/L (9-52); ALBUMIN 3.1 g/dL (3.5-5.0); ALKALINE PHOSPHATASE 69 U/L (38-126); ANION GAP 9 (5-19); ASPARTATE AMINO TRANSFERASE 25 U/L (14-36); BILIRUBIN,DIRECT 0.5 mg/dL (0.0-0.4); BILIRUBIN,TOTAL 0.7 mg/dL (0.2-1.3); BLOOD UREA NITROGEN 21 mg/dL (7-20); CARBON DIOXIDE 21 mmol/L (22-30); CHLORIDE 111 mmol/L (98-107); GLUCOSE 105 mg/dL (75-110); POTASSIUM 4.9 mmol/L (3.6-5.0); TOTAL PROTEIN 6.7 g/dL (6.3-8.2)
[2018-01-12] MEDS: CARVEDILOL 3.125 MG TABLET PO SCH (09:33)
[2018-01-12] MEDS: FOLIC ACID 1 MG TABLET PO SCH (09:33)
[2018-01-12] MEDS: LEVOFLOXACIN 750 MG/D5W RTU 750 MG/150 ML RTUPB IV SCH (09:34)
[2018-01-12] MEDS: ENOXAPARIN SODIUM INJ 80 MG/0.8 ML DISP.SYRIN SUBCUT SCH (09:35)
[2018-01-12] MEDS: MEGESTROL ACETATE SUSP 400 MG/10 ML UDCUP PO SCH (09:37)
[2018-01-12] MEDS: POLYETHYLENE GLYCOL 3350 POWDER 17 GM/1 PACKET PO SCH (09:38)
[2018-01-12] MEDS: LEVOFLOXACIN 750 MG TABLET PO SCH (13:29)
[2018-01-12] MEDS: ACETAMINOPHEN 325 MG TABLET PO PRN (17:38)
--- NOTE | 2018-01-12 21:28 | PDOC PROGRESS REPORT ---
Subjective Progress Note for:: 01/12/18 Subjective:: Patient is seen by the bedside, she is able to come off the BiPAP today presently on nasal cannula Reason For Visit: ACUTE HYPOXEMIC RESPIRATORY FAILURE,PNEUMONIA, Physical Exam Vital Signs: Temp Pulse Resp BP Pulse Ox 98.5 F 90 16 141/88 H 100 01/12/18 16:36 01/12/18 16:36 01/12/18 16:36 01/12/18 16:36 01/12/18 21:09 Intake & Output 01/11/18 01/12/18 01/13/18 06:59 06:59 06:59 Intake Total 3812 3999 1938 Output Total 632 418 3188 Balance 2912 3019 263 Weight 72.4 kg 73.6 kg General appearance: PRESENT: no acute distress Eye exam: PRESENT: PERRLA Respiratory exam: PRESENT: rhonchi Cardiovascular exam: PRESENT: +S1, +S2 GI/Abdominal exam: PRESENT: soft Neurological exam: PRESENT: alert Results Laboratory Results: 01/12/18 06:30 01/12/18 06:30 01/12/18 01/12/18 06:30 06:30 WBC 7.2 RBC 3.25 L Hgb 12.0 Hct 35.4 L MCV 109 H MCH 36.8 H MCHC 33.8 RDW 22.7 H Plt Count 152 Seg Neutrophils % 57.9 Lymphocytes % 30.7 Monocytes % 9.0 Eosinophils % 1.7 Basophils % 0.7 Absolute Neutrophils 4.2 Absolute Lymphocytes 2.2 Absolute Monocytes 0.7 Absolute Eosinophils 0.1 Absolute Basophils 0.0 Sodium 141.0 Potassium 4.9 Chloride 111 H Carbon Dioxide 21 L Anion Gap 9 BUN 21 H Creatinine 0.91 Est GFR ( Amer) > 60 Est GFR (Non-Af Amer) > 60 Glucose 105 Calcium 9.0 Total Bilirubin 0.7 AST 25 ALT 21 Alkaline Phosphatase 69 Total Protein 6.7 Albumin 3.1 L 01/09/18 01/09/18 01/09/18 13:50 13:50 19:44 CK-MB (CK-2) 0.86 0.96 Troponin I < 0.012 < 0.012 NT-Pro-B Natriuret Pep 443 01/10/18 01:30 CK-MB (CK-2) 0.82 Troponin I < 0.012 NT-Pro-B Natriuret Pep Impressions: Chest CT 01/09/18 00:00 IMPRESSION: 1. Relatively chronic lung changes, doubt significant change compared to priors as above. No new infiltrates. Chest/Abdomen CTA 01/09/18 00:00 IMPRESSION: No CT angio evidence of acute pulmonary emboli. Chest X-Ray 01/09/18 06:19 IMPRESSION: No significant change. Assessment & Plan - Diagnosis (1) Acute hypoxemic respiratory failure Is this a current diagnosis for this admission?: Yes (2) Metabolic acidosis Is this a current diagnosis for this admission?: Yes (3) Deep vein thrombosis of axillary vein of right upper extremity Qualifiers: Chronicity: acute Qualified Code(s): I82.A11 - Acute embolism and thrombosis of right axillary vein Is this a current diagnosis for this admission?: Yes (4) Cocaine abuse Is this a current diagnosis for this admission?: Yes (5) E. coli UTI Is this a current diagnosis for this admission?: Yes
[2018-01-13] MEDS: QUETIAPINE FUMARATE 25 MG TABLET PO SCH ×2 (00:12→22:12)
[2018-01-13] MEDS: ENOXAPARIN SODIUM INJ 80 MG/0.8 ML DISP.SYRIN SUBCUT SCH ×3 (00:12→22:12)
[2018-01-13] MEDS: CARVEDILOL 3.125 MG TABLET PO SCH ×3 (00:12→22:11)
[2018-01-13] MEDS: NORMAL SALINE 1000 ML 1,000 ML IV PRN ×2 (03:35→15:42)
[2018-01-13] MEDS: FOLIC ACID 1 MG TABLET PO SCH (10:16)
[2018-01-13] MEDS: ACETAMINOPHEN 325 MG TABLET PO PRN ×2 (10:16→19:53)
[2018-01-13] MEDS: POLYETHYLENE GLYCOL 3350 POWDER 17 GM/1 PACKET PO SCH (10:22)
[2018-01-13] MEDS: MEGESTROL ACETATE SUSP 400 MG/10 ML UDCUP PO SCH (10:40)
[2018-01-13] MEDS: LEVOFLOXACIN 750 MG TABLET PO SCH (15:42)
--- NOTE | 2018-01-13 19:48 | PDOC PROGRESS REPORT ---
Subjective Progress Note for:: 01/13/18 Subjective:: She was seen by the bedside she no longer require noninvasive ventilation she is on nasal cannula Reason For Visit: ACUTE HYPOXEMIC RESPIRATORY FAILURE,PNEUMONIA, Physical Exam Vital Signs: Temp Pulse Resp BP Pulse Ox 99.2 F 94 18 132/89 H 100 01/13/18 16:10 01/13/18 16:10 01/13/18 16:10 01/13/18 16:10 01/13/18 16:10 Intake & Output 01/12/18 01/13/18 01/14/18 06:59 06:59 06:59 Intake Total 3999 4668 1000 Output Total 980 1675 Balance 3019 2993 1000 Weight 73.6 kg 72.8 kg General appearance: PRESENT: no acute distress Eye exam: PRESENT: PERRLA Respiratory exam: PRESENT: clear to auscultation dawna Cardiovascular exam: PRESENT: +S1, +S2 GI/Abdominal exam: PRESENT: soft Neurological exam: PRESENT: alert Results Laboratory Results: 01/12/18 06:30 01/12/18 06:30 01/09/18 01/09/18 01/09/18 13:50 13:50 19:44 CK-MB (CK-2) 0.86 0.96 Troponin I < 0.012 < 0.012 NT-Pro-B Natriuret Pep 443 01/10/18 01:30 CK-MB (CK-2) 0.82 Troponin I < 0.012 NT-Pro-B Natriuret Pep Impressions: Chest CT 01/09/18 00:00 IMPRESSION: 1. Relatively chronic lung changes, doubt significant change compared to priors as above. No new infiltrates. Chest/Abdomen CTA 01/09/18 00:00 IMPRESSION: No CT angio evidence of acute pulmonary emboli. Chest X-Ray 01/09/18 06:19 IMPRESSION: No significant change. Assessment & Plan - Diagnosis (1) Acute hypoxemic respiratory failure Is this a current diagnosis for this admission?: Yes (2) Metabolic acidosis Is this a current diagnosis for this admission?: Yes (3) Deep vein thrombosis of axillary vein of right upper extremity Qualifiers: Chronicity: acute Qualified Code(s): I82.A11 - Acute embolism and thrombosis of right axillary vein Is this a current diagnosis for this admission?: Yes (4) Cocaine abuse Is this a current diagnosis for this admission?: Yes (5) E. coli UTI Is this a current diagnosis for this admission?: Yes
[2018-01-14] MEDS ORDERED: GUAIFENESIN SYRP 200 MG/10 ML UDC PO PRN (00:06)
[2018-01-14] MEDS: NORMAL SALINE 1000 ML 1,000 ML IV PRN ×2 (01:58→13:41)
[2018-01-14] MEDS: FOLIC ACID 1 MG TABLET PO SCH (09:07)
[2018-01-14] MEDS: CARVEDILOL 3.125 MG TABLET PO SCH (09:07)
[2018-01-14] MEDS: MEGESTROL ACETATE SUSP 400 MG/10 ML UDCUP PO SCH (09:08)
[2018-01-14] MEDS: ENOXAPARIN SODIUM INJ 80 MG/0.8 ML DISP.SYRIN SUBCUT SCH (09:09)
[2018-01-14] MEDS: POLYETHYLENE GLYCOL 3350 POWDER 17 GM/1 PACKET PO SCH (09:11)
[2018-01-14] MEDS: LEVOFLOXACIN 750 MG TABLET PO SCH (13:41)
[2018-01-14 18:45] LABS: ABSOLUTE BASOPHILS # (AUTO) 0.1 10^3/uL (0.0-0.2); ABSOLUTE EOSINOPHILS # (AUTO) 0.2 10^3/uL (0.0-0.6); ABSOLUTE LYMPHOCYTES (AUTO) 2.1 10^3/uL (0.5-4.7); ABSOLUTE MONOCYTES (AUTO) 0.7 10^3/uL (0.1-1.4); ABSOLUTE NEUT (AUTO) 4.7 10^3/uL (1.7-8.2); BASOPHILS % (AUTO) 0.9 % (0-2); EOSINOPHILS % (AUTO) 2.4 % (0-6); HEMOGLOBIN 12.2 g/dL (12.0-15.5); LYMPHOCYTES % (AUTO) 27.3 % (13-45); MEAN CORPUSCULAR HEMOGLOBIN 36.7 pg (27.0-33.4); MEAN CORPUSCULAR HGB CONC 33.8 g/dL (32.0-36.0); MEAN CORPUSCULAR VOLUME 109 fl (80-97); MONOCYTES % (AUTO) 8.8 % (3-13); PLATELET COUNT 164 10^3/uL (150-450); RED BLOOD COUNT 3.31 10^6/uL (3.72-5.28); RED CELL DISTRIBUTION WIDTH 21.9 % (11.5-14.0); SEGMENTED NEUTROPHILS % (AUTO) 60.6 % (42-78); TOTAL CELLS COUNTED % (AUTO) 100 %; WHITE BLOOD COUNT 7.7 10^3/uL (4.0-10.5)
[2018-01-14 19:01] VITALS: BP 150/88
[2018-01-14 19:03] LABS: ALANINE AMINOTRANSFERASE 22 U/L (9-52); ALBUMIN 3.5 g/dL (3.5-5.0); ALKALINE PHOSPHATASE 70 U/L (38-126); ANION GAP 10 (5-19); ASPARTATE AMINO TRANSFERASE 33 U/L (14-36); BILIRUBIN,DIRECT 0.7 mg/dL (0.0-0.4); BILIRUBIN,TOTAL 0.8 mg/dL (0.2-1.3); BLOOD UREA NITROGEN 18 mg/dL (7-20); CALCIUM 9.8 mg/dL (8.4-10.2); CARBON DIOXIDE 25 mmol/L (22-30); CHLORIDE 107 mmol/L (98-107); GLUCOSE 124 mg/dL (75-110); POTASSIUM 4.7 mmol/L (3.6-5.0); SODIUM 142.2 mmol/L (137-145); TOTAL PROTEIN 7.3 g/dL (6.3-8.2)
[2018-01-14 19:07] LABS: ANISOCYTOSIS 3+; PLATELET COMMENT ADEQUATE; POIKILOCYTOSIS SLIGHT; TARGET CELLS SLIGHT
--- NOTE | 2018-01-14 20:49 | PDOC DISCHARGE SUMMARY ---
General - Admit/Disc Date/PCP Admission Date/Primary Care Provider: 01/09/18 08:31 ABNER WILKINS MD Discharge Date: 01/14/18 - Discharge Diagnosis (1) Acute hypoxemic respiratory failure Is this a current diagnosis for this admission?: Yes (2) Metabolic acidosis Is this a current diagnosis for this admission?: Yes (3) Deep vein thrombosis of axillary vein of right upper extremity Is this a current diagnosis for this admission?: Yes (4) Cocaine abuse Is this a current diagnosis for this admission?: Yes (5) E. coli UTI Is this a current diagnosis for this admission?: Yes - Additional Information Discharge Diet: As Tolerated Discharge Activity: Activity As Tolerated, Balance Activity w/Rest Prescriptions: Diltiazem HCl [Cardizem Cd 120 mg Capsule] 1 cap.sr PO DAILY #90 cap.sr Levofloxacin [Levaquin 750 mg Tablet] 750 mg PO DAILY@1400 #10 tablet Home Medications: Albuterol Sulfate [Albuterol Sulfate 2.5mg/3 mL] 1 vial NEB TIDP PRN 01/09/18 Enoxaparin Sodium [Lovenox Inj 80 mg/0.8 ml Disp.syrin] 80 mg SQ Q12 01/09/18 Folic Acid [Folvite 1 mg Tablet] 1 mg PO DAILY 01/09/18 Megestrol Acetate 20 ml PO DAILY 01/09/18 Polyethylene Glycol 3350 [Miralax Powder 17 gm/Packet] 1 packet PO DAILY Quetiapine Fumarate [Seroquel 25 mg Tablet] 25 mg PO QHS 01/09/18 Ticagrelor [Brilinta] 60 mg PO Q12 01/09/18 Diltiazem HCl [Cardizem Cd 120 mg Capsule] 1 cap.sr PO DAILY #90 cap.sr Levofloxacin [Levaquin 750 mg Tablet] 750 mg PO DAILY@1400 #10 tablet 01/14/18 History of Present Illness History of Present Illness: MAAME SAENZ is a 52 year old female,She came to the emergency room for evaluation of shortness of breath.I saw her in the office on Wednesday when she came for evaluation of intertrigo affecting the groin and the sub-mammillary skin. She was recently admitted in this hospital last month when she had Streptococcus pneumonia sepsis with septic shock requiring mechanical ventilation, hospital course was prolonged, she also was transferred to tertiary care at [facility] because of family request. She told me she has stopped smoking and drinking alcohol but the urine toxicology study was positive for cocaine. CT chest without contrast was done, it showed chronic scarring with volume loss and bronchiectasis in the right upper lobe this is no change since 2016 the lung otherwise looks clear.ABG on FiO2 30%, PO2 55.2 PCO2 40 pH 7.2 bicarbonate 18.2 this is consistent with severe hypoxemia with metabolic acidosis. The last time she was admitted she had deep vein thrombosis of the right upper extremity, presently on Lovenox subcu every 12 for 3 months she told me she is compliant,if she is compliant pulmonary embolism is unlikely to be the etiology of the hypoxemia, the chest x-ray is not showing any new pneumonia that will explain the hypoxemia, CTA chest will be ordered to rule out PE, I am not sure how compliant this lady is, she is busy doing cocaine probably not taking her Lovenox as ordered. Hospital Course Hospital Course: Patient had acute hypoxic respiratory failure CTA chest was negative for PE and pneumonia, she required noninvasive ventilation with BiPAP, urine culture grew E. coli she also had cocaine in the urine it was felt that the acute hypoxemic respiratory failure is due to cocaine she was advised of the need to stop doing substances including cocaine ,smoking marijuana. She was empirically treated with Levaquin because of history of Streptococcus pneumonia which septicemia in the past the E. coli is also sensitive to Levaquin. She wants to go home today Physical Exam Vital Signs: Temp Pulse Resp BP Pulse Ox 98.7 F 91 16 150/88 H 99 01/14/18 19:00 01/14/18 19:00 01/14/18 19:00 01/14/18 19:00 01/14/18 19:00 Intake & Output 01/13/18 01/14/18 01/15/18 06:59 06:59 06:59 Intake Total 1648 2814 1828 Output Total 1455 400 Balance 2993 7884 1828 Weight 72.8 kg 74.1 kg General appearance: PRESENT: no acute distress, well-developed, well-nourished Head exam: PRESENT: atraumatic, normocephalic Eye exam: PRESENT: conjunctiva pink, EOMI, PERRLA Ear exam: PRESENT: normal external ear exam Mouth exam: PRESENT: moist, tongue midline Neck exam: PRESENT: full ROM Respiratory exam: PRESENT: clear to auscultation dawna Cardiovascular exam: PRESENT: RRR, +S1, +S2 Vascular exam: PRESENT: normal capillary refill GI/Abdominal exam: PRESENT: normal bowel sounds, soft Rectal exam: PRESENT: deferred Neurological exam: PRESENT: alert, awake, oriented to person, oriented to place , oriented to time, oriented to situation, CN II-XII grossly intact Psychiatric exam: PRESENT: appropriate affect, normal mood Skin exam: PRESENT: dry, intact, warm Results Laboratory Results: 01/14/18 18:35 01/14/18 18:35 01/14/18 01/14/18 18:35 18:35 WBC 7.7 RBC 3.31 L Hgb 12.2 Hct 36.0 MCV 109 H MCH 36.7 H MCHC 33.8 RDW 21.9 H Plt Count 164 Seg Neutrophils % 60.6 Lymphocytes % 27.3 Monocytes % 8.8 Eosinophils % 2.4 Basophils % 0.9 Absolute Neutrophils 4.7 Absolute Lymphocytes 2.1 Absolute Monocytes 0.7 Absolute Eosinophils 0.2 Absolute Basophils 0.1 Sodium 142.2 Potassium 4.7 Chloride 107 Carbon Dioxide 25 Anion Gap 10 BUN 18 Creatinine 0.91 Est GFR ( Amer) > 60 Est GFR (Non-Af Amer) > 60 Glucose 124 H Calcium 9.8 Total Bilirubin 0.8 AST 33 ALT 22 Alkaline Phosphatase 70 Total Protein 7.3 Albumin 3.5 01/09/18 08:37 Blood Blood Culture - Final NO GROWTH IN 5 DAYS 01/09/18 01/09/18 01/09/18 13:50 13:50 19:44 CK-MB (CK-2) 0.86 0.96 Troponin I < 0.012 < 0.012 NT-Pro-B Natriuret Pep 443 01/10/18 01:30 CK-MB (CK-2) 0.82 Troponin I < 0.012 NT-Pro-B Natriuret Pep Impressions: Chest CT 01/09/18 00:00 IMPRESSION: 1. Relatively chronic lung changes, doubt significant change compared to priors as above. No new infiltrates. Chest/Abdomen CTA 01/09/18 00:00 IMPRESSION: No CT angio evidence of acute pulmonary emboli. Chest X-Ray 01/09/18 06:19 IMPRESSION: No significant change. Qualifiers - * PATIENT BEING DISCHARGED WITH ANY OF THE FOLLOWING DIAGNOSIS: No
== END 2018-01-14 19:20 | disposition home or self-care (01) | DRG 193 ==
LOC: ER 06:14 → EH 08:31 → 3S 10:04
PROVIDERS: ADMIT Internal Medicine; ATTEND Internal Medicine
PROC: 3E0F73Z Introduction of Anti-inflammatory into Respiratory Tract, Via Natural or Artificial Opening (ICD-10-PCS; 2018-01-09)
PROC: 5A09357 Assistance with Respiratory Ventilation, Less than 24 Consecutive Hours, Continuous Positive Airway Pressure (ICD-10-PCS; principal; 2018-01-10)
DX: J18.9 Pneumonia, unspecified organism (principal); J96.01 Acute respiratory failure with hypoxia; E87.2 Acidosis; N39.0 Urinary tract infection, site not specified; I82.A11 Acute embolism and thrombosis of right axillary vein; F14.10 Cocaine abuse, uncomplicated; B96.20 Unspecified Escherichia coli [E. coli] as the cause of diseases classified elsewhere; F10.20 Alcohol dependence, uncomplicated; D64.9 Anemia, unspecified; Z79.899 Other long term (current) drug therapy; Z86.711 Personal history of pulmonary embolism; Z85.72 Personal history of non-Hodgkin lymphomas; Z90.710 Acquired absence of both cervix and uterus; Z96.642 Presence of left artificial hip joint; Z96.651 Presence of right artificial knee joint
CPT/HCPCS: 36415; 36600; 71045; 71250; 71275; 80048; 80053; 80076; 80307; 81001; 82140; 82150; 82553; 82570; 82803; 83036; 83605; 83690; 83735; 83880; 84100; 84156; 84439; 84443; 84484; 85025; 85379; 85610; 85652; 85730; 86140; 87040; 87086; 87088; 87186; 93005; 93010; 94660; 96360; 99285; J1650; J1956; J3475; J3490; J7030; J7620

== ENCOUNTER 2018-03-23 16:36 | Emergency (ER) | payer MEDICAID ==
[2018-03-23] MEDS ORDERED: NORMAL SALINE 250 ML IV PRN (17:21)
[2018-03-23 17:30] LABS: INTERNATIONAL RATION (INR) 1.34; PROTHROMBIN TIME 17.2 SEC (11.4-15.4); VENOUS BLOOD BASE EXCESS -7.4 mmol/L; VENOUS BLOOD HCO3 17.9 mmol/L (20-32); VENOUS BLOOD PCO2 34.3 mmHg (35-63); VENOUS BLOOD PH 7.34 (7.30-7.42)
[2018-03-23 17:31] LABS: MEAN CORPUSCULAR HEMOGLOBIN 40.9 pg (27.0-33.4); PLATELET COUNT 232 10^3/uL (150-450); RED BLOOD COUNT 0.76 10^6/uL (3.72-5.28); RED CELL DISTRIBUTION WIDTH 19.4 % (11.5-14.0); WHITE BLOOD COUNT 16.4 10^3/uL (4.0-10.5)
--- NOTE | 2018-03-23 17:45 | ER Document Report ---
ED General - General Stated Complaint: WEAKNESS Time Seen by Provider: 03/23/18 17:20 Notes: Patient is complaining of difficulty breathing for the past week and a half. She has a history of COPD and has a home nebulizer she is been using but it is not helping. She has had a dry cough for the past week. In addition, patient says that she has had black stools for the past week. She has not taken any iron or Pepto-Bismol, etc. that would cause the stools to change color. Patient is on Xarelto for pulmonary embolus in the past. She has never had a GI bleed. Never told that she has ulcers, etc. Patient was transported here by EMS. Her vital signs showed a heart rate of 125 and a blood pressure 98/63. Blood sugar was 152. O2 sat was 98% on room air. Patient was diagnosed with Hodgkin's lymphoma 13 years ago. She says she underwent about 4 chemotherapies and was told that she did not need anymore and is never had any other treatment. She does see a local oncologist, Dr. Masters. TRAVEL OUTSIDE OF THE [place] IN LAST 30 DAYS: No - Related Data Allergies/Adverse Reactions: No Known Allergies Allergy (Verified 04/25/17 18:37) Past Medical History - Social History Smoking Status: Unknown if Ever Smoked Family History: Reviewed & Not Pertinent - Past Medical History Cardiac Medical History: Reports: Hx DVT Pulmonary Medical History: Reports: Hx COPD Neurological Medical History: Denies: Hx Cerebrovascular Accident Malignancy Medical History: Reports: Hx Lymphoma - History of non-Hodgkin's lymphoma diagnosed 13 years ago. Had limited chem Past Surgical History: Reports: Hx Section, Hx Hysterectomy, Hx Orthopedic Surgery - Left hip replacement, right knee, Hx Tonsillectomy, Hx Tubal Ligation - Immunizations Hx Diphtheria, Pertussis, Tetanus Vaccination: Yes Review of Systems - Review of Systems Notes: REVIEW OF SYSTEMS: CONSTITUTIONAL : Denies fever. EENT: Denies eye, ear, nose or mouth or throat pain or other symptoms. CARDIOVASCULAR: Denies chest pain. RESPIRATORY: Has a dry cough. Short of breath. See HPI. GASTROINTESTINAL: Denies abdominal pain or nausea, vomiting, but has large amount of black diarrhea. See HPI. GENITOURINARY: Denies difficulty or painful urinating, urinary frequency, blood in urine. MUSCULOSKELETAL: Denies back or neck pain. Denies joint pain or swelling. SKIN: Denies rash or skin lesions. NEUROLOGICAL: Denies LOC or altered mental status. Denies headache. Denies sensory loss or motor deficits. ALL OTHER SYSTEMS REVIEWED AND NEGATIVE. Physical Exam - Vital signs Vitals: Resp 25 H 03/23/18 16:47 Interpretation: Hypotensive, Tachycardic - Notes Notes: PHYSICAL EXAMINATION: GENERAL: Somewhat increased respiratory rate, sometimes grunting respirations.. HEAD: Atraumatic, normocephalic. EYES: Pupils equal round and reactive to light, extraocular movements intact. ENT: Extremely pale tongue and oral mucous membranes. Moist. NECK: Normal range of motion, supple. LUNGS: Breath sounds clear and equal bilaterally. No wheezes heard. HEART: Regular rate and rhythm without murmurs. Tachycardia at 125. ABDOMEN: Soft, nontender. No guarding or rebound. No masses. BACK: No tenderness throughout entire back. EXTREMITIES: Patient has pain of the distal right forearm, just proximal to the right wrist which he says came because she had a fall a couple of weeks ago. Was not seen or evaluated at that time. NEUROLOGICAL: Normal speech, normal gait. Normal sensory, motor, and reflex exams. Awake, alert, and oriented x3. Cranial nerves normal. PSYCH: Normal mood, normal affect. SKIN: Warm, dry, no rashes. Course - Re-evaluation Re-evalutation: 03/23/18 19:03 I ordered 2 units of emergency release blood immediately. About that same time , lab reported the patient's hemoglobin was 3.1. We got 2 units of emergency release blood and after infusion of about a unit and a half, patient's vital signs had improved significantly. Heart rate was down from 125 to 110, blood pressure was 107/76. O2 sat was 95% on room air. Since we do not have any gastrointestinal coverage for the ED or hospital today , I discussed possibility of admitting patient here with surgeon rehabilitation center manager, who said he was willing to act as backup for this patient should she require some emergency surgical procedure. I contacted Dr. Cope, rehabilitation center manager for patient's primary care provider, Dr. iWlkins, and Dr. Cope did is not comfortable keeping this patient here without GI coverage to do a scope on the patient tonight. I will begin calling other facilities to see if we can arrange to transfer the patient. 03/23/18 20:10 Patient's right wrist was x-rayed and shows an impacted fracture of the radius at the wrist. This fracture likely could have required even surgical intervention and may still need to have surgery, but it is secondary in importance to what is going on with her tonight. I have provided the patient with a splint to wear on that wrist and a copy of her x-ray report and advised her and her that she needs to have an orthopedic evaluation when she is out of the hospital from this GI bleed. - Vital Signs Vital signs: Temp Pulse Resp BP Pulse Ox 98.3 F 125 H 22 H 105/72 98 03/23/18 19:11 03/23/18 18:07 03/23/18 22:51 03/23/18 22:51 03/23/18 22:51 - Laboratory Result Diagrams: 03/23/18 17:00 03/23/18 17:00 Laboratory results interpreted by me: 03/23/18 03/23/18 03/23/18 17:00 17:00 17:00 WBC 16.4 H RBC 0.76 L Hgb 3.1 L* Hct 9.7 L* MCV 128 H MCH 40.9 H RDW 19.4 H Abs Neuts (Manual) 11.2 H Abs Monocytes (Manual) 1.6 H PT 17.2 H VBG pCO2 VBG HCO3 Sodium 130.2 L Carbon Dioxide 17 L BUN 37 H Glucose 125 H Lactic Acid AST 64 H Total Protein 5.6 L Albumin 2.9 L Ur Leukocyte Esterase Crossmatch 03/23/18 03/23/18 03/23/18 17:00 17:00 17:20 WBC RBC Hgb Hct MCV MCH RDW Abs Neuts (Manual) Abs Monocytes (Manual) PT VBG pCO2 34.3 L VBG HCO3 17.9 L Sodium Carbon Dioxide BUN Glucose Lactic Acid 5.4 H AST Total Protein Albumin Ur Leukocyte Esterase Crossmatch See Detail 03/23/18 19:42 WBC RBC Hgb Hct MCV MCH RDW Abs Neuts (Manual) Abs Monocytes (Manual) PT VBG pCO2 VBG HCO3 Sodium Carbon Dioxide BUN Glucose Lactic Acid AST Total Protein Albumin Ur Leukocyte Esterase TRACE H Crossmatch - Diagnostic Test Radiology results interpreted by me: 03/24/18 11:40 cxr shows cardiomegaly - EKG Interpretation by Me EKG shows normal: Sinus rhythm Rate: Tachycardia Rhythm: NSR Procedures - Immobilization Right Wrist Time completed: 20:05 Pre-Proc Neuro Vasc Exam: Normal Immobilizer type: Volar splint Performed by: PCT Post-Proc Neuro Vasc Exam: Normal Alignment checked and good: Yes Critical Care Note - Critical Care Note Total time excluding time spent on procedures (mins): 70 Discharge - Discharge Clinical Impression: Gastrointestinal bleed, Anemia Condition: Critical Disposition: [facility] Referrals: ABNER WILKINS MD [Primary Care Provider] - Follow up as needed
--- NOTE | 2018-03-23 17:46 | RADIOLOGY REPORT (SQ) ---
EXAM DESCRIPTION: CHEST SINGLE VIEW COMPLETED DATE/TIME: 03/23/2018 5:19 pm REASON FOR STUDY: sepsis COMPARISON: December 2017 EXAM PARAMETERS: NUMBER OF VIEWS: One view. TECHNIQUE: Single frontal radiographic view of the chest acquired. RADIATION DOSE: NA LIMITATIONS: None. FINDINGS: LUNGS AND PLEURA: No acute consolidations or pleural effusions. Chronic pleural and paren chymal changes are again identified in the right lung apex which appears stable. MEDIASTINUM AND HILAR STRUCTURES: No masses. Contour normal. HEART AND VASCULAR STRUCTURES: The configuration of the heart mediastinal structures is unchanged. BONES: No acute findings. HARDWARE: None in the chest. OTHER: No other significant finding. IMPRESSION: NO ACUTE RADIOGRAPHIC FINDING IN THE CHEST. TECHNICAL DOCUMENTATION: JOB ID: [id number] [employer]- All Rights Reserved Reading location - IP/workstation name: [email or web address]
[2018-03-23 17:49] LABS: ALANINE AMINOTRANSFERASE 37 U/L (9-52); ALBUMIN 2.9 g/dL (3.5-5.0); ALKALINE PHOSPHATASE 99 U/L (38-126); ANION GAP 15 (5-19); ASPARTATE AMINO TRANSFERASE 64 U/L (14-36); BILIRUBIN,DIRECT 0.4 mg/dL (0.0-0.4); BILIRUBIN,TOTAL 0.4 mg/dL (0.2-1.3); BLOOD UREA NITROGEN 37 mg/dL (7-20); CALCIUM 8.8 mg/dL (8.4-10.2); CARBON DIOXIDE 17 mmol/L (22-30); CHLORIDE 98 mmol/L (98-107); GLUCOSE 125 mg/dL (75-110); POTASSIUM 3.7 mmol/L (3.6-5.0); SODIUM 130.2 mmol/L (137-145); TOTAL PROTEIN 5.6 g/dL (6.3-8.2)
[2018-03-23 17:58] LABS: HEMATOCRIT 9.7 % (36.0-47.0)
[2018-03-23 18:02] LABS: ABSOLUTE LYMPHOCYTES# (MANUAL) 3.6 10^3/uL (0.5-4.7); ABSOLUTE MONOCYTES # (MANUAL) 1.6 10^3/uL (0.1-1.4); ABSOLUTE NEUTROPHILS# (MANUAL) 11.2 10^3/uL (1.7-8.2); BASOPHILS % (MANUAL) 0 % (0-2); EOSINOPHILS % (MANUAL) 0 % (0-6); LYMPHOCYTES % (MANUAL) 22 % (13-45); MONOCYTES % (MANUAL) 10 % (3-13); NUCLEATED RED BLOOD CELLS 4 /100 WBC (0); SEGMENTED NEUTROPHILS % (MAN) 68 % (42-78); TOTAL CELLS COUNTED 100
[2018-03-23 18:05] LABS: ANISOCYTOSIS 2+; POIKILOCYTOSIS 1+; POLYCHROMASIA SLIGHT; TOXIC GRANULATION SLIGHT; TOXIC VACUOLATION PRESENT
[2018-03-23 18:06] LABS: PLATELET COMMENT ADEQUATE; TEAR DROP CELLS SLIGHT
[2018-03-23 18:07] LABS: MEAN CORPUSCULAR VOLUME 128 fl (80-97)
[2018-03-23 18:09] LABS: HEMOGLOBIN 3.1 g/dL (12.0-15.5)
--- NOTE | 2018-03-23 19:33 | RADIOLOGY REPORT (SQ) ---
EXAM DESCRIPTION: WRIST RIGHT 3 VIEWS COMPLETED DATE/TIME: 03/23/2018 7:15 pm REASON FOR STUDY: Fell and injured right wrist. COMPARISON: None. NUMBER OF VIEWS: Three views. TECHNIQUE: AP, lateral, and oblique radiographic images acquired of the right wrist. LIMITATIONS: None. FINDINGS: MINERALIZATION: Normal. BONES: Impacted fracture of the distal radius. No significant angulation. This appears to spare the articular surface. SOFT TISSUES: No soft tissue swelling. No foreign body. OTHER: No other significant finding. IMPRESSION: Fracture of the distal radius. TECHNICAL DOCUMENTATION: JOB ID: [id number] [employer]- All Rights Reserved Reading location - IP/workstation name: [email or web address]
[2018-03-23 20:01] LABS: APPEARANCE,URINE CLEAR; BILIRUBIN,URINE NEGATIVE (NEGATIVE); COLOR,URINE YELLOW; GLUCOSE, URINE NEGATIVE (NEGATIVE); KETONES,URINE NEGATIVE (NEGATIVE); LEUKOCYTE ESTERASE,URINE TRACE (NEGATIVE); NITRITE,URINE NEGATIVE (NEGATIVE); PROTEIN,URINE NEGATIVE (NEGATIVE); URINE SPECIFIC GRAVITY 1.006; UROBILINOGEN,URINE NEGATIVE mg/dL (<2.0)
[2018-03-23] MEDS ORDERED: OXYCODONE-ACETAMINOPHEN 5-325 MG TABLET PO ONE (21:01)
[2018-03-23] MEDS ORDERED: FUROSEMIDE INJ/PF 40 MG/4 ML SDV IV ONE (21:03)
--- NOTE | 2018-03-23 22:19 | EKG REPORT ---
SEVERITY:- BORDERLINE ECG - SINUS TACHYCARDIA LOW VOLTAGE THROUGHOUT : Confirmed by: Martha Fletcher 23-Mar-2018 22:19:06
[2018-03-23] MEDS ORDERED: FENTANYL CITRATE INJ/PF 100 MCG/2 ML AMPUL IV ONE (22:31)
--- NOTE | 2018-03-23 22:59 | ER Document Report ---
Doctor's Note Notes: 03/23/18 22:58 Patient reevaluated upon transfer team arrival. Current vitals are heart rate of 110, blood pressure of 98/69. Patient is alert, awake. In my opinion she is stable for transfer. Transfer team is debating whether they should call a higher level of care at this time to transport her.
[2018-03-23 23:03] VITALS: BP 105/72
[2018-03-24 09:23] LABS: PATH REVIEW PATHOLOGIST REVIEWED
== END 2018-03-23 23:35 | disposition short-term general hospital (02) ==
LOC: ER 16:36
DX: K92.2 Gastrointestinal hemorrhage, unspecified (principal); D64.9 Anemia, unspecified; J44.9 Chronic obstructive pulmonary disease, unspecified; Z86.718 Personal history of other venous thrombosis and embolism; Z85.72 Personal history of non-Hodgkin lymphomas; Z90.710 Acquired absence of both cervix and uterus; Z96.642 Presence of left artificial hip joint
CPT/HCPCS: 93005; 99291; 96361; 51702; 96374; 96375; 86900; 86901; 36415; 87040; 87086; 36430; 86850; 85025; 85610; 82272; 87077; 80053; 81001; 87186; 86920; 82803; 83605; 71045; 73110; 93010; L3908; P9016; J3010; J1940; J7050

== ENCOUNTER 2018-03-30 12:18 | Inpatient (IN) | payer MEDICAID ==
[2018-03-30] MEDS ORDERED: NORMAL SALINE 1000 ML 1,000 ML IV ONE (12:34)
--- NOTE | 2018-03-30 12:34 | ER Document Report ---
ED Medical Screen (RME) - General Chief Complaint: Neck Swelling Stated Complaint: NECK SWELLING Time Seen by Provider: 03/30/18 12:26 Notes: Patient is a 52-year-old female that presents to the emergency department for multiple medical complaints including left breast swelling, redness and pain, bilateral lower extremity swelling. She reports she was recently admitted for upper GI bleed in [place] at [facility], had endoscopy, and had what she thinks was clipping, and her melena has since resolved, but now over the last 24 hours, she developed left breast swelling and redness and significant pain, which she describes as a dull ache, she saw her oncologist that she sees for Hodgkin's lymphoma, now in remission, and she was advised to come to the emergency department. Also noted the patient's in a right arm splint and sling, because she had a recent fall and had open reduction and internal fixation of her wrist according to the patient on Wednesday. TRAVEL OUTSIDE OF THE [place] IN LAST 30 DAYS: No - Related Data Allergies/Adverse Reactions: No Known Allergies Allergy (Verified 03/30/18 12:19) Past Medical History - Social History Frequency of alcohol use: Occasional Drug Abuse: None - Past Medical History Cardiac Medical History: Reports: Hx DVT Pulmonary Medical History: Reports: Hx COPD Denies: Hx Tuberculosis Neurological Medical History: Denies: Hx Cerebrovascular Accident Renal/ Medical History: Denies: Hx Peritoneal Dialysis Malignancy Medical History: Reports: Hx Lymphoma - History of non-Hodgkin's lymphoma diagnosed 13 years ago. Had limited chem Psychiatric Medical History: Denies: Hx Depression Past Surgical History: Reports: Hx Section, Hx Hysterectomy, Hx Orthopedic Surgery - Left hip replacement, right knee, Hx Tonsillectomy, Hx Tubal Ligation. Denies: Hx Pacemaker - Immunizations Hx Diphtheria, Pertussis, Tetanus Vaccination: Yes History of Influenza Vaccine for 05/2017 - 09/2017 Season: No Review of Systems - Review of Systems Notes: Positive for left breast pain and swelling, and leg swelling bilateral Constitutional: No symptoms reported EENT: No symptoms reported Cardiovascular: No symptoms reported Respiratory: No symptoms reported Gastrointestinal: No symptoms reported Genitourinary: No symptoms reported Female Genitourinary: No symptoms reported Musculoskeletal: Leg swelling Skin: No symptoms reported Hematologic/Lymphatic: No symptoms reported Neurological/Psychological: No symptoms reported Physical Exam - Vital signs Vitals: Temp Pulse Resp BP Pulse Ox 99.1 F 112 H 20 107/64 97 03/30/18 12:25 03/30/18 12:25 03/30/18 12:25 03/30/18 12:25 03/30/18 12:25 - General In distress: Mild Notes: Appears uncomfortable - Respiratory Breath sounds: Normal Notes: Left breast and chest wall is tender to palpate, erythema noted to the left breast, and swollen. - Cardiovascular Rhythm: Tachycardia - Extremities General upper extremity: Normal inspection General lower extremity: Edema - 2+ pitting edema bilaterally in the lower extremities - Skin Skin Temperature: Warm Skin Moisture: Dry Notes: Erythema and swelling over the left breast. Course - Re-evaluation Re-evalutation: 03/30/18 12:39 Patient seen and examined, vital signs reviewed, noted to be tachycardic, patient's exam is consistent with left breast cellulitis, and given history of recent hospitalization, and history of sepsis, we will initiate sepsis order set , and start IV fluids, and move the patient to the main ED. - Vital Signs Vital signs: Temp Pulse Resp BP Pulse Ox 99.1 F 112 H 20 107/64 97 03/30/18 12:25 03/30/18 12:25 03/30/18 12:25 03/30/18 12:25 03/30/18 12:25 Doctor's Discharge - Discharge Referrals: ABNER WILKINS MD [Primary Care Provider] - Follow up as needed
--- NOTE | 2018-03-30 13:26 | EKG REPORT ---
SEVERITY:- BORDERLINE ECG - SINUS TACHYCARDIA LOW VOLTAGE THROUGHOUT : Confirmed by: Jhonatan French MD 30-Mar-2018 13:25:43
--- NOTE | 2018-03-30 13:27 | ER Document Report ---
ED General - General Chief Complaint: Neck Swelling Stated Complaint: NECK SWELLING Time Seen by Provider: 03/30/18 12:26 Notes: Patient is here because of swelling and pain of her left breast. Patient's history starts with her having a severe GI bleed last week requiring emergency transfusion of blood and a transfer from this hospital to [place] where she underwent endoscopy and clipping of a bleeding site in her stomach, perhaps ulcer. She was discharged from [facility] on Wednesday, 2 days ago, and yesterday morning, awakened to find her left breast swollen and painful. Patient had had a central line in the left neck and it was removed Wednesday morning before her discharge. Patient also had an incidental finding of a fracture of her right radius and ulna at the wrist which was the result of a fall a couple of weeks earlier. This fracture was treated with open reduction and fixation and splinted. Patient is also complaining of swelling of her extremities. History of Hodgkin's lymphoma in remission. TRAVEL OUTSIDE OF THE [place] IN LAST 30 DAYS: No - Related Data Allergies/Adverse Reactions: No Known Allergies Allergy (Verified 03/30/18 12:19) Past Medical History - Social History Smoking Status: Current Every Day Smoker Frequency of alcohol use: Occasional Drug Abuse: None Family History: Reviewed & Not Pertinent Patient has suicidal ideation: No Patient has homicidal ideation: No - Past Medical History Cardiac Medical History: Reports: Hx DVT Pulmonary Medical History: Reports: Hx COPD Denies: Hx Tuberculosis Neurological Medical History: Denies: Hx Cerebrovascular Accident Renal/ Medical History: Denies: Hx Peritoneal Dialysis Malignancy Medical History: Reports: Hx Lymphoma - History of non-Hodgkin's lymphoma diagnosed 13 years ago. Had limited chem GI Medical History: Reports: Other - History of GI bleed last week with a hemoglobin of 3.1 Past Surgical History: Reports: Hx Section, Hx Hysterectomy, Hx Orthopedic Surgery - Left hip replacement, right knee, Hx Tonsillectomy, Hx Tubal Ligation - Immunizations Hx Diphtheria, Pertussis, Tetanus Vaccination: Yes Review of Systems - Review of Systems Notes: REVIEW OF SYSTEMS: CONSTITUTIONAL : Denies fever. EENT: Denies eye, ear, nose or mouth or throat pain or other symptoms. CARDIOVASCULAR: Denies chest pain. Breasts: Pain and swelling of left breast, second day RESPIRATORY: Denies cough, chest congestion, or shortness of breath. GASTROINTESTINAL: Denies abdominal pain or nausea, vomiting, or diarrhea. GENITOURINARY: Denies difficulty or painful urinating, urinary frequency, blood in urine. MUSCULOSKELETAL: Denies back or neck pain. Pain in right forearm and wrist area where patient had recent open surgery. SKIN: Denies rash or skin lesions. NEUROLOGICAL: Denies LOC or altered mental status. Denies headache. Denies sensory loss or motor deficits. ALL OTHER SYSTEMS REVIEWED AND NEGATIVE. Physical Exam - Vital signs Vitals: Temp Pulse Resp BP Pulse Ox 99.1 F 112 H 20 107/64 97 03/30/18 12:25 03/30/18 12:25 03/30/18 12:25 03/30/18 12:25 03/30/18 12:25 Interpretation: Tachycardic - Mild - Notes Notes: PHYSICAL EXAMINATION: GENERAL: Well-appearing, in no acute distress, although does appear to be in pain. HEAD: Atraumatic, normocephalic. EYES: Pupils equal round and reactive to light, extraocular movements intact. ENT: oropharynx clear without exudates. Moist mucous membranes. NECK: Normal range of motion, supple. LUNGS: Breath sounds clear and equal bilaterally. Breasts: Right breast appears normal. Left breast enlarged at least twice normal size, may be 3 times normal size. Warm to the touch. Slightly pink in color underneath the breast with some erythematous area towards the medial aspect under the left breast. No fluctuance or soft areas that suggest fluid accumulation like an abscess. Clinically this appears to be cellulitis/ mastitis. HEART: Regular rate and rhythm without murmurs. ABDOMEN: Soft, nontender. No guarding or rebound. No masses. BACK: No tenderness throughout entire back. EXTREMITIES: Normal range of motion without pain. NEUROLOGICAL: Normal speech, normal gait. Normal sensory, motor, and reflex exams. Awake, alert, and oriented x3. Cranial nerves normal. PSYCH: Normal mood, normal affect. SKIN: Warm, dry, no rashes. Course - Re-evaluation Re-evalutation: 03/30/18 15:54 Patient received pain medications and started on antibiotics IV Rocephin. Ultrasound shows mastitis/cellulitis and no findings of abscess. 03/30/18 15:55 Spoke with patient's primary care provider, Dr. yañez, who would admit the patient for IV antibiotics. - Vital Signs Vital signs: Temp Pulse Resp BP Pulse Ox 99.1 F 112 H 20 107/64 97 03/30/18 12:25 03/30/18 12:25 03/30/18 12:25 03/30/18 12:25 03/30/18 12:25 - Laboratory Result Diagrams: 03/30/18 13:22 03/30/18 13:22 Laboratory results interpreted by me: 03/30/18 03/30/18 13:22 13:22 WBC 10.6 H RBC 2.42 L Hgb 8.5 L Hct 24.6 L MCV 102 H D MCH 35.0 H RDW 22.3 H Chloride 111 H Carbon Dioxide 20 L Direct Bilirubin 0.5 H AST 37 H Alkaline Phosphatase 143 H Total Protein 5.7 L Albumin 2.7 L - EKG Interpretation by Pa EKG shows normal: Sinus rhythm Rate: Tachycardia Additional EKG results interpreted by me: 03/30/18 15:54 Low voltage. Discharge - Discharge Clinical Impression: Mastitis, Anemia, Sinus tachycardia Condition: Stable Disposition: ADMITTED INPATIENT Admitting Provider: Kalen Unit Admitted: Medical Floor Referrals: ABNER WILKINS MD [Primary Care Provider] - Follow up as needed
[2018-03-30] MEDS ORDERED: MORPHINE SULFATE 10 MG/ML INJ IV ONE ×2 (13:28→16:04)
[2018-03-30] MEDS ORDERED: ONDANSETRON HCL INJ/PF 4 MG/2 ML SDV IV ONE (13:29)
[2018-03-30] MEDS ORDERED: CEFTRIAXONE INJ 1000 MG VIAL IV ONE (13:31)
[2018-03-30 14:01] LABS: ABSOLUTE BASOPHILS # (AUTO) 0.1 10^3/uL (0.0-0.2); ABSOLUTE EOSINOPHILS # (AUTO) 0.2 10^3/uL (0.0-0.6); ABSOLUTE LYMPHOCYTES (AUTO) 1.6 10^3/uL (0.5-4.7); ABSOLUTE NEUT (AUTO) 7.7 10^3/uL (1.7-8.2); BASOPHILS % (AUTO) 0.8 % (0-2); EOSINOPHILS % (AUTO) 1.7 % (0-6); HEMATOCRIT 24.6 % (36.0-47.0); HEMOGLOBIN 8.5 g/dL (12.0-15.5); LYMPHOCYTES % (AUTO) 15.1 % (13-45); MEAN CORPUSCULAR HGB CONC 34.4 g/dL (32.0-36.0); MONOCYTES % (AUTO) 9.6 % (3-13); PLATELET COUNT 306 10^3/uL (150-450); RED BLOOD COUNT 2.42 10^6/uL (3.72-5.28); RED CELL DISTRIBUTION WIDTH 22.3 % (11.5-14.0); SEGMENTED NEUTROPHILS % (AUTO) 72.8 % (42-78); TOTAL CELLS COUNTED % (AUTO) 100 %; WHITE BLOOD COUNT 10.6 10^3/uL (4.0-10.5)
[2018-03-30 14:12] LABS: MEAN CORPUSCULAR VOLUME 102 fl (80-97)
[2018-03-30 14:18] LABS: ALANINE AMINOTRANSFERASE 38 U/L (9-52); ALBUMIN 2.7 g/dL (3.5-5.0); ALKALINE PHOSPHATASE 143 U/L (38-126); ANION GAP 10 (5-19); ASPARTATE AMINO TRANSFERASE 37 U/L (14-36); BILIRUBIN,DIRECT 0.5 mg/dL (0.0-0.4); BILIRUBIN,TOTAL 0.7 mg/dL (0.2-1.3); BLOOD UREA NITROGEN 7 mg/dL (7-20); CALCIUM 9.2 mg/dL (8.4-10.2); CARBON DIOXIDE 20 mmol/L (22-30); CHLORIDE 111 mmol/L (98-107); GLUCOSE 103 mg/dL (75-110); POTASSIUM 4.2 mmol/L (3.6-5.0); TOTAL PROTEIN 5.7 g/dL (6.3-8.2)
--- NOTE | 2018-03-30 15:06 | RADIOLOGY REPORT (SQ) ---
EXAM DESCRIPTION: CHEST 2 VIEWS COMPLETED DATE/TIME: 03/30/2018 2:58 pm REASON FOR STUDY: Swollen, painful left breast COMPARISON: 09/10/2017 EXAM PARAMETERS: NUMBER OF VIEWS: two views TECHNIQUE: Digital Frontal and Lateral radiographic views of the chest acquired. RADIATION DOSE: NA LIMITATIONS: none FINDINGS: LUNGS AND PLEURA: There is scarring in the right apex. No consolidation or effusions. MEDIASTINUM AND HILAR STRUCTURES: No masses or contour abnormalities. HEART AND VASCULAR STRUCTURES: Heart normal size. No evidence for failure. BONES: No acute findings. HARDWARE: None in the chest. OTHER: No other significant finding. IMPRESSION: Chronic changes in the right lung apex. No acute findings. TECHNICAL DOCUMENTATION: JOB ID: [id number] [employer]- All Rights Reserved Reading location - IP/workstation name: [email or web address]
--- NOTE | 2018-03-30 15:19 | RADIOLOGY REPORT (SQ) ---
EXAM DESCRIPTION: U/S BREAST UNILATERAL LIMITED COMPLETED DATE/TIME: 03/30/2018 2:55 pm REASON FOR STUDY: MASTITIS VS ABSCESS COMPARISON: None TECHNIQUE: Ultrasound of the entire left breast was performed. Selected color doppler/spectral imag es saved to PACS. LIMITATIONS: None. FINDINGS: Diffuse skin thickening and subcutaneous edema is present throughout the left breast. No well circumscribed abscess is identified. Report called to Dr. Schmitt in the emergency room. IMPRESSION: Diffuse skin thickening and subcutaneous edema from mastitis. No well circumscribed ab scess is identified BIRAD: 1 Negative. RECOMMENDATION: RECOMMENDED FOLLOW-UP: Follow-up as clinically indicated. COMMENT: The [employer] (ACR) has developed recommendations for screening MRI of the breasts in certain patient populations, to be used in conjunction with mammography. Breast MRI s urveillance may be appropriate for women with more than 20% lifetime risk of developing breast cancer as determined by genetic testing, significant family history of the disease, or history of mantle r adiation for Hodgkins Disease. ACR Practice Guidelines 2008. TECHNICAL DOCUMENTATION: FINDING NUMBER: (1) ASSESSMENT: (1) JOB ID: [id number] [employer]- All Rights Reserved Reading location - IP/workstation name: [email or web address]
[2018-03-30] MEDS ORDERED: HYDROMORPHONE HCL INJ/PF 2 MG/ML AMPULE IV ONE (17:23)
[2018-03-30] MEDS ORDERED: LORAZEPAM INJ 2 MG/1 ML VIAL IV PRN (19:05)
[2018-03-30 19:47] LABS: INTERNATIONAL RATION (INR) 1.14; PARTIAL THROMBOPLASTIN TIME 32.2 SEC (23.5-35.8); PROTHROMBIN TIME 15.2 SEC (11.4-15.4)
[2018-03-30 19:56] LABS: LIPASE 1351.6 U/L (23-300); PHOSPHORUS 3.8 mg/dL (2.5-4.5)
[2018-03-30 20:14] LABS: FREE T4 (FREE THYROXINE) 1.36 ng/dL (0.78-2.19)
[2018-03-30 20:28] LABS: THYROID STIMULATING HORMONE 3.26 uIU/mL (0.47-4.68)
[2018-03-30 20:34] LABS: CREATINE KINASE MB 0.49 ng/mL (<4.55)
[2018-03-30 20:39] LABS: TROPONIN I < 0.012 ng/mL
[2018-03-30] MEDS: DIPHENHYDRAMINE HCL 25 MG CAPSULE PO PRN (21:10)
--- NOTE | 2018-03-30 21:47 | RADIOLOGY REPORT (SQ) ---
EXAM DESCRIPTION: CHEST SINGLE VIEW COMPLETED DATE/TIME: 03/30/2018 9:14 pm REASON FOR STUDY: COugh COMPARISON: Earlier exam same date TECHNIQUE: Single frontal radiographic view of the chest acquired. NUMBER OF VIEWS: One view. LIMITATIONS: None. FINDINGS: LUNGS AND PLEURA: No pneumothorax. Similar chronic scarring in the right lung apex. No c onsolidation or pleural effusion. MEDIASTINUM AND HILAR STRUCTURES: Stable. HEART AND VASCULAR STRUCTURES: Stable. BONES: No acute findings. HARDWARE: None in the chest. OTHER: No other significant finding. IMPRESSION: NO ACUTE FINDINGS. TECHNICAL DOCUMENTATION: JOB ID: [id number] [place]-72 2010 [employer]- All Rights Reserved Reading location - IP/workstation name: [email or web address]
[2018-03-30] MEDS: NICOTINE 21 MG/24 HR PATCH.TD24 TD SCH (23:12)
[2018-03-30] MEDS: ENOXAPARIN SODIUM INJ 40 MG/0.4 ML DISP.SYRIN SUBCUT SCH (23:13)
[2018-03-31] MEDS: CLINDAMYCIN 600 MG/D5W RTU 600 MG/50 ML RTUPB IV SCH ×5 (01:10→18:06)
[2018-03-31 01:25] LABS: APPEARANCE,URINE CLEAR; BILIRUBIN,URINE NEGATIVE (NEGATIVE); COLOR,URINE YELLOW; GLUCOSE, URINE NEGATIVE (NEGATIVE); KETONES,URINE NEGATIVE (NEGATIVE); LEUKOCYTE ESTERASE,URINE MODERATE (NEGATIVE); NITRITE,URINE NEGATIVE (NEGATIVE); PROTEIN,URINE NEGATIVE (NEGATIVE); URINE SPECIFIC GRAVITY 1.013
[2018-03-31 01:35] LABS: URINE AMPHETAMINES SCREEN NEGATIVE; URINE BARBITURATES SCREEN NEGATIVE; URINE BENZODIAZEPINES SCREEN NEGATIVE; URINE COCAINE SCREEN NEGATIVE; URINE MARIJUANA (THC) SCREEN NEGATIVE; URINE METHADONE SCREEN NEGATIVE; URINE PHENCYCLIDINE SCREEN NEGATIVE
[2018-03-31 02:19] LABS: CREATINE KINASE MB 0.47 ng/mL (<4.55)
[2018-03-31 02:24] LABS: TROPONIN I < 0.012 ng/mL
[2018-03-31] MEDS: LANSOPRAZOLE 30 MG TAB.RAP.DR PO SCH ×2 (06:12→18:06)
[2018-03-31 07:59] LABS: ABSOLUTE BASOPHILS # (AUTO) 0.1 10^3/uL (0.0-0.2); ABSOLUTE EOSINOPHILS # (AUTO) 0.2 10^3/uL (0.0-0.6); ABSOLUTE LYMPHOCYTES (AUTO) 1.3 10^3/uL (0.5-4.7); ABSOLUTE MONOCYTES (AUTO) 0.9 10^3/uL (0.1-1.4); ABSOLUTE NEUT (AUTO) 7.2 10^3/uL (1.7-8.2); BASOPHILS % (AUTO) 0.6 % (0-2); EOSINOPHILS % (AUTO) 1.9 % (0-6); HEMATOCRIT 23.5 % (36.0-47.0); LYMPHOCYTES % (AUTO) 13.5 % (13-45); MEAN CORPUSCULAR HEMOGLOBIN 33.9 pg (27.0-33.4); MEAN CORPUSCULAR HGB CONC 33.7 g/dL (32.0-36.0); MEAN CORPUSCULAR VOLUME 101 fl (80-97); MONOCYTES % (AUTO) 9.3 % (3-13); PLATELET COUNT 354 10^3/uL (150-450); RED BLOOD COUNT 2.34 10^6/uL (3.72-5.28); RED CELL DISTRIBUTION WIDTH 20.3 % (11.5-14.0); SEGMENTED NEUTROPHILS % (AUTO) 74.7 % (42-78); TOTAL CELLS COUNTED % (AUTO) 100 %; WHITE BLOOD COUNT 9.6 10^3/uL (4.0-10.5)
[2018-03-31 08:12] LABS: ALANINE AMINOTRANSFERASE 38 U/L (9-52); ALBUMIN 2.6 g/dL (3.5-5.0); ALKALINE PHOSPHATASE 137 U/L (38-126); ANION GAP 10 (5-19); ASPARTATE AMINO TRANSFERASE 36 U/L (14-36); BILIRUBIN,DIRECT 0.5 mg/dL (0.0-0.4); BILIRUBIN,TOTAL 0.7 mg/dL (0.2-1.3); BLOOD UREA NITROGEN 7 mg/dL (7-20); CARBON DIOXIDE 20 mmol/L (22-30); CHLORIDE 110 mmol/L (98-107); CHOLESTEROL 109.42 mg/dL (0-200); GLUCOSE 99 mg/dL (75-110); POTASSIUM 4.4 mmol/L (3.6-5.0); SODIUM 139.6 mmol/L (137-145); TOTAL PROTEIN 5.4 g/dL (6.3-8.2); TRIGLYCERIDES 76 mg/dL (<150)
[2018-03-31 08:13] LABS: HEMOGLOBIN 7.9 g/dL (12.0-15.5)
[2018-03-31 08:23] LABS: DIRECT LDL 55 mg/dL (<100)
[2018-03-31 08:25] LABS: CREATINE KINASE MB 0.44 ng/mL (<4.55)
[2018-03-31 08:26] LABS: TROPONIN I < 0.012 ng/mL
[2018-03-31] MEDS: ENOXAPARIN SODIUM INJ 40 MG/0.4 ML DISP.SYRIN SUBCUT SCH (09:25)
[2018-03-31] MEDS: MAGNESIUM OXIDE 400 MG TABLET PO SCH (09:29)
[2018-03-31] MEDS: NICOTINE 21 MG/24 HR PATCH.TD24 TD SCH (09:29)
[2018-03-31] MEDS ORDERED: NORMAL SALINE 10 ML SDV (AFTER EACH USE) IV PRN (11:37)
[2018-03-31] MEDS: TRAMADOL HCL 50 MG TABLET PO PRN ×2 (12:20→20:40)
--- NOTE | 2018-03-31 14:27 | RADIOLOGY REPORT (SQ) ---
EXAM DESCRIPTION: PICC INSERTION; FLUORO/CV PLACEMENT; U/S GUIDE FOR VASCULAR ACCESS COMPLETED DATE/TIME: 03/31/2018 11:25 am REASON FOR STUDY: Needs PICC insertion; IV ACCESS PENITENTIARY IV ABX; IV ACCESS patient requires IV an tibiotics, no IV access COMPARISON: AP chest 03/30/2018 FLUOROSCOPY TIME: 1 minutes 37 seconds 4 digital radiographs, 1 ultrasound images saved to PACS. TECHNIQUE: Fluoroscopic and ultrasound guided PICC placement. LIMITATIONS: None. PROCEDURE: The patient has a fractured right wrist. After written consent and assessment were obtained, the patient was brought into the fluoroscopy room and place supine on the table. Ultrasound evaluation of potential access sites were performed. After successfully identifying a patent left basilic vein, the left arm was prepped and draped in a steril e fashion along with the ultrasound probe. The entry site was anesthetized with 1% lidocaine. A 21 ga uge 7 cm needle was advanced through the skin and into the basilic vein under live ultrasound guidanc e. An ultrasound image was saved to PACS confirming access site. A .018 guide wire was then inserte d through the needle and into the venous system. The needle was the removed and an 11 blade scalpel w as used to make a 1cm skin incision. A 5 fr peel-away sheath was advanced over the wire and into the venous system. The catheter and guidewire was passed easily into the left axillary and subclavian vein. Gentle hand injection of 15 mL of Omnipaque 300 demonstrated occlusion of the left brachiocephalic vein at its j unction with the superior vena cava. In the midline, along the upper mediastinum at the level of the left brachiocephalic vein, the catheter would not pass. The venous system is obstructed centrally w here the left brachiocephalic vein joints the superior vena cava. A measurement was then made using the existing wire and live fluoroscopic guidance. The wire was then removed and the trimmed. The PICC was advanced through the peel-away sheath and into the venous syst em. The peel-away sheath was removed and the catheter was adhered to the patients arm with a stat loc k. The catheter was then aspirated and flushed and a sterile bandage was placed over the access site. A fluoroscopic spot image was saved to PACS confirming the catheter tip within the left subclavian vein.. Please note that this catheter should not be used for power injection for CT. IMPRESSION: SUCCESSFUL PLACEMENT OF A 5 FR DUAL LUMEN 28 CM PICC IN THE LEFT SUBCLAVIAN VEIN. THIS LEFT ARM PICC CATHETER SHOULD NOT BE USED FOR POWER INJECTION FOR CT. COMMENT: Patient medication list reviewed: Yes- Quality ID# 130:Eligible professional attests to doc umenting in the medical record they obtained, updated, or reviewed the patient's current medications. . Quality ID 145: Final reports for procedures using fluoroscopy that document radiation exposure leah roula, or exposure time and number of fluorographic images (if radiation exposure indices are not avail able) Quality ID #76: The patient was prepped and draped using maximum sterile barrier technique including cap, mask, sterile gown, sterile gloves, a large sterile sheet, hand hygiene, and 2% Chlorhexidine fo r cutaneous antisepsis. When ultrasound is used, sterile ultrasound techniques are followed requiring sterile gel and sterile probes. TECHNICAL DOCUMENTATION: JOB ID: [id number] [employer]- All Rights Reserved rev Reading location - IP/workstation name: [email or web address]
[2018-03-31 18:08] LABS: ABSOLUTE RETICS # 0.033 10^6/uL (0.028-0.122); RETICULOCYTE COUNT (AUTO) 1.42 % (0.66-2.85)
[2018-03-31 18:23] LABS: IRON(TIBC) 22.7 ug/dL (37-170)
[2018-03-31] MEDS ORDERED: FUROSEMIDE INJ/PF 40 MG/4 ML SDV IV ONE (18:30)
[2018-03-31] MEDS ORDERED: ONDANSETRON 4 MG TAB.RAPDIS PO ONE (18:30)
--- NOTE | 2018-03-31 18:41 | PDOC H&P ---
History of Present Illness Admission Date/PCP: 03/30/18 16:11 ABNER WILKINS MD History of Present Illness: MAAME SAENZ is a 52 year old female,She came to the emergency room for evaluation of neck swelling, left breast swelling, redness and pain, bilateral lower extremity swelling. She was recently admitted in [facility] when she had upper GI bleed she underwent upper endoscopy, she was found to have a bleeding ulcer this was treated endoscopically at that time she had very low hemoglobin of 4 she was transfused with many units of packed red blood cells. 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 The last time she was transferred she also had fracture of the right wrist, she underwent open reduction and internal fixation of the wrist. Patient with very poor health probably immunocompromise with predisposition to infection, on examination of the left breast there was tremendous swelling, redness, tenderness when compared to the right breast she apparently had IJ central line when she was admitted.She is also intensively itching there is no evidence of hyperbilirubinemia, she has a history of alcohol liver disease, the itching could be related to liver disease Past Medical History Cardiac Medical History: Reports: DVT Pulmonary Medical History: Reports: Chronic Obstructive Pulmonary Disease (COPD) , Intubation, Pneumonia, Respiratory Failure Malignancy Medical History: Reports: Lymphoma - History of non-Hodgkin's lymphoma diagnosed 13 years ago. Had limited chem GI Medical History: Reports: Cirrhosis, Other - History of alcohol liver disease , alcohol abuse Psychiatric Medical History: Reports: Alcohol Dependency Hematology: Reports: Anemia Past Surgical History Past Surgical History: Reports: Section, Hysterectomy, Orthopedic Surgery - Left hip replacement, right knee, Tonsillectomy, Tubal Ligation Social History Smoking Status: Current Every Day Smoker Cigarettes Packs Per Day: 1.5 Last Time Smoked: 03/29/18 Frequency of Alcohol Use: Heavy Hx Recreational Drug Use: No Drugs: Cocaine Hx Prescription Drug Abuse: No - Advance Directive Resuscitation Status: Full Code Family History Family History: Reviewed & Not Pertinent Parental Family History Reviewed: Yes Children Family History Reviewed: Yes Sibling(s) Family History Reviewed.: Yes Medication/Allergy Home Medications: Megestrol Acetate 10 ml PO DAILY 03/30/18 Allergies/Adverse Reactions: No Known Allergies Allergy (Verified 03/30/18 12:19) Review of Systems Constitutional: PRESENT: anorexia Eyes: ABSENT: visual disturbances Ears: ABSENT: hearing changes Cardiovascular: ABSENT: chest pain, dyspnea on exertion, edema, orthropnea, palpitations Respiratory: ABSENT: cough, hemoptysis Gastrointestinal: PRESENT: nausea Musculoskeletal: PRESENT: back pain, joint swelling Integumentary: ABSENT: rash, wounds Neurological: ABSENT: abnormal gait, abnormal speech, confusion, dizziness, focal weakness, syncope Psychiatric: ABSENT: anxiety, depression, homidical ideation, suicidal ideation Endocrine: ABSENT: cold intolerance, heat intolerance, menstrual abnormalities, polydipsia, polyuria Hematologic/Lymphatic: ABSENT: easy bleeding, easy bruising, lymphadenopathy Physical Exam Vital Signs: Temp Pulse Resp BP Pulse Ox 98.4 F 104 H 20 139/78 H 100 03/31/18 11:47 03/31/18 11:47 03/31/18 11:47 03/31/18 11:47 03/31/18 11:47 Intake & Output 03/30/18 03/31/18 04/01/18 06:59 06:59 06:59 Intake Total 1000 552 Balance 1000 552 Weight 76.4 kg General appearance: PRESENT: no acute distress Head exam: PRESENT: atraumatic, normocephalic Eye exam: PRESENT: PERRLA Ear exam: PRESENT: normal external ear exam Mouth exam: PRESENT: moist, tongue midline Neck exam: PRESENT: full ROM Respiratory exam: PRESENT: rhonchi Cardiovascular exam: PRESENT: RRR, +S1, +S2 Vascular exam: PRESENT: normal capillary refill GI/Abdominal exam: PRESENT: normal bowel sounds, soft Rectal exam: PRESENT: deferred Extremities exam: PRESENT: pedal edema Neurological exam: PRESENT: alert, CN II-XII grossly intact Psychiatric exam: PRESENT: appropriate affect, normal mood Skin exam: PRESENT: erythema, rash, warm, other - Erythema , swelling of left breast Additonal comments: There is tremendous enlargement of the left breast tender to touch with submammary erythema Results Laboratory Results: 03/31/18 07:37 03/31/18 07:37 03/30/18 03/30/18 03/30/18 19:26 19:26 19:26 WBC RBC Hgb Hct MCV MCH MCHC RDW Plt Count Seg Neutrophils % Lymphocytes % Monocytes % Eosinophils % Basophils % Absolute Neutrophils Absolute Lymphocytes Absolute Monocytes Absolute Eosinophils Absolute Basophils Retic Count (auto) Absolute Retic Sodium Potassium Chloride Carbon Dioxide Anion Gap BUN Creatinine Est GFR ( Amer) Est GFR (Non-Af Amer) Glucose Calcium Phosphorus 3.8 Magnesium 1.2 L* Total Bilirubin AST ALT Alkaline Phosphatase Ammonia 30.3 Total Protein Albumin Triglycerides Cholesterol LDL Cholesterol Direct VLDL Cholesterol HDL Cholesterol Amylase 132 H Lipase 1351.6 H TSH 3.26 Free T4 1.36 Urine Color Urine Appearance Urine pH Ur Specific [place] Urine Protein Urine Glucose (UA) Urine Ketones Urine Blood Urine Nitrite Ur Leukocyte Esterase Urine WBC (Auto) Urine RBC (Auto) 03/31/18 03/31/18 03/31/18 00:44 07:37 07:37 WBC 9.6 RBC 2.34 L Hgb 7.9 L Hct 23.5 L MCV 101 H MCH 33.9 H MCHC 33.7 RDW 20.3 H Plt Count 354 Seg Neutrophils % 74.7 Lymphocytes % 13.5 Monocytes % 9.3 Eosinophils % 1.9 Basophils % 0.6 Absolute Neutrophils 7.2 Absolute Lymphocytes 1.3 Absolute Monocytes 0.9 Absolute Eosinophils 0.2 Absolute Basophils 0.1 Retic Count (auto) Absolute Retic Sodium 139.6 Potassium 4.4 Chloride 110 H Carbon Dioxide 20 L Anion Gap 10 BUN 7 Creatinine 0.60 Est GFR ( Amer) > 60 Est GFR (Non-Af Amer) > 60 Glucose 99 Calcium 9.0 Phosphorus Magnesium Total Bilirubin 0.7 AST 36 ALT 38 Alkaline Phosphatase 137 H Ammonia Total Protein 5.4 L Albumin 2.6 L Triglycerides 76 Cholesterol 109.42 LDL Cholesterol Direct 55 VLDL Cholesterol 15.0 HDL Cholesterol 39 L Amylase Lipase TSH Free T4 Urine Color YELLOW Urine Appearance CLEAR Urine pH 5.0 Ur Specific [place] 1.013 Urine Protein NEGATIVE Urine Glucose (UA) NEGATIVE Urine Ketones NEGATIVE Urine Blood SMALL H Urine Nitrite NEGATIVE Ur Leukocyte Esterase MODERATE H Urine WBC (Auto) 4 Urine RBC (Auto) 1 03/31/18 07:37 WBC RBC Hgb Hct MCV MCH MCHC RDW Plt Count Seg Neutrophils % Lymphocytes % Monocytes % Eosinophils % Basophils % Absolute Neutrophils Absolute Lymphocytes Absolute Monocytes Absolute Eosinophils Absolute Basophils Retic Count (auto) 1.42 Absolute Retic 0.033 Sodium Potassium Chloride Carbon Dioxide Anion Gap BUN Creatinine Est GFR ( Amer) Est GFR (Non-Af Amer) Glucose Calcium Phosphorus Magnesium Total Bilirubin AST ALT Alkaline Phosphatase Ammonia Total Protein Albumin Triglycerides Cholesterol LDL Cholesterol Direct VLDL Cholesterol HDL Cholesterol Amylase Lipase TSH Free T4 Urine Color Urine Appearance Urine pH Ur Specific [place] Urine Protein Urine Glucose (UA) Urine Ketones Urine Blood Urine Nitrite Ur Leukocyte Esterase Urine WBC (Auto) Urine RBC (Auto) 03/30/18 03/30/18 03/30/18 19:26 19:26 19:26 Creatine Kinase 52 CK-MB (CK-2) 0.49 Troponin I < 0.012 NT-Pro-B Natriuret Pep 501 03/31/18 03/31/18 03/31/18 01:17 01:17 07:37 Creatine Kinase 44 35 CK-MB (CK-2) 0.47 Troponin I < 0.012 NT-Pro-B Natriuret Pep 03/31/18 07:37 Creatine Kinase CK-MB (CK-2) 0.44 Troponin I < 0.012 NT-Pro-B Natriuret Pep Impressions: Breast Ultrasound 03/30/18 00:00 IMPRESSION: Diffuse skin thickening and subcutaneous edema from mastitis. No well circumscribed abscess is identified Chest X-Ray 03/30/18 19:04 IMPRESSION: NO ACUTE FINDINGS. Guidance Fluoroscopy 03/31/18 00:00 IMPRESSION: SUCCESSFUL PLACEMENT OF A 5 FR DUAL LUMEN 28 CM PICC IN THE LEFT SUBCLAVIAN VEIN. THIS LEFT ARM PICC CATHETER SHOULD NOT BE USED FOR POWER INJECTION FOR CT. Interventional Vascular Procedure 03/31/18 00:00 IMPRESSION: SUCCESSFUL PLACEMENT OF A 5 FR DUAL LUMEN 28 CM PICC IN THE LEFT SUBCLAVIAN VEIN. THIS LEFT ARM PICC CATHETER SHOULD NOT BE USED FOR POWER INJECTION FOR CT. PICC Line Insertion 03/31/18 00:00 IMPRESSION: SUCCESSFUL PLACEMENT OF A 5 FR DUAL LUMEN 28 CM PICC IN THE LEFT SUBCLAVIAN VEIN. THIS LEFT ARM PICC CATHETER SHOULD NOT BE USED FOR POWER INJECTION FOR CT. Assessment & Plan - Diagnosis (1) Acute mastitis of left breast Is this a current diagnosis for this admission?: Yes Plan: She has cellulitis most likely related to the IV access, she is started on IV antibiotic (2) Hypoalbuminemia Is this a current diagnosis for this admission?: Yes (3) Alcohol liver damage Is this a current diagnosis for this admission?: Yes (4) History of bleeding peptic ulcer Is this a current diagnosis for this admission?: Yes Plan: Recent history of upper GI bleed due to a bleeding gastric ulcer, start patient on PPI (5) Alcohol dependence Qualifiers: Substance use status: unspecified alcohol-induced disorder Qualified Code(s ): F10.29 - Alcohol dependence with unspecified alcohol-induced disorder Is this a current diagnosis for this admission?: Yes Plan: She has a history of alcohol withdrawal syndrome, start prophylaxis with lorazepam 2 mg IV every 6 hours on his schedule to prevent withdrawal still actively drinking alcohol
--- NOTE | 2018-03-31 18:44 | PDOC PROGRESS REPORT ---
Subjective Progress Note for:: 03/31/18 Subjective:: She was seen by the bedside IV access is challenging, a PICC line was inserted today, she is anemic probably dilutional Reason For Visit: LEFT MASITIS, ETOH ABUSE, TOBACCO ABUSE Physical Exam Vital Signs: Temp Pulse Resp BP Pulse Ox 98.4 F 104 H 20 139/78 H 100 03/31/18 11:47 03/31/18 11:47 03/31/18 11:47 03/31/18 11:47 03/31/18 11:47 Intake & Output 03/30/18 03/31/18 04/01/18 06:59 06:59 06:59 Intake Total 1000 552 Balance 1000 552 Weight 76.4 kg General appearance: PRESENT: no acute distress Eye exam: PRESENT: PERRLA Respiratory exam: PRESENT: clear to auscultation dawna Cardiovascular exam: PRESENT: +S1, +S2 GI/Abdominal exam: PRESENT: soft Neurological exam: PRESENT: alert Results Laboratory Results: 03/31/18 07:37 03/31/18 07:37 03/30/18 03/30/18 03/30/18 19:26 19:26 19:26 WBC RBC Hgb Hct MCV MCH MCHC RDW Plt Count Seg Neutrophils % Lymphocytes % Monocytes % Eosinophils % Basophils % Absolute Neutrophils Absolute Lymphocytes Absolute Monocytes Absolute Eosinophils Absolute Basophils Retic Count (auto) Absolute Retic Sodium Potassium Chloride Carbon Dioxide Anion Gap BUN Creatinine Est GFR ( Amer) Est GFR (Non-Af Amer) Glucose Calcium Phosphorus 3.8 Magnesium 1.2 L* Total Bilirubin AST ALT Alkaline Phosphatase Ammonia 30.3 Total Protein Albumin Triglycerides Cholesterol LDL Cholesterol Direct VLDL Cholesterol HDL Cholesterol Amylase 132 H Lipase 1351.6 H TSH 3.26 Free T4 1.36 Urine Color Urine Appearance Urine pH Ur Specific [place] Urine Protein Urine Glucose (UA) Urine Ketones Urine Blood Urine Nitrite Ur Leukocyte Esterase Urine WBC (Auto) Urine RBC (Auto) 03/31/18 03/31/18 03/31/18 00:44 07:37 07:37 WBC 9.6 RBC 2.34 L Hgb 7.9 L Hct 23.5 L MCV 101 H MCH 33.9 H MCHC 33.7 RDW 20.3 H Plt Count 354 Seg Neutrophils % 74.7 Lymphocytes % 13.5 Monocytes % 9.3 Eosinophils % 1.9 Basophils % 0.6 Absolute Neutrophils 7.2 Absolute Lymphocytes 1.3 Absolute Monocytes 0.9 Absolute Eosinophils 0.2 Absolute Basophils 0.1 Retic Count (auto) Absolute Retic Sodium 139.6 Potassium 4.4 Chloride 110 H Carbon Dioxide 20 L Anion Gap 10 BUN 7 Creatinine 0.60 Est GFR ( Amer) > 60 Est GFR (Non-Af Amer) > 60 Glucose 99 Calcium 9.0 Phosphorus Magnesium Total Bilirubin 0.7 AST 36 ALT 38 Alkaline Phosphatase 137 H Ammonia Total Protein 5.4 L Albumin 2.6 L Triglycerides 76 Cholesterol 109.42 LDL Cholesterol Direct 55 VLDL Cholesterol 15.0 HDL Cholesterol 39 L Amylase Lipase TSH Free T4 Urine Color YELLOW Urine Appearance CLEAR Urine pH 5.0 Ur Specific [place] 1.013 Urine Protein NEGATIVE Urine Glucose (UA) NEGATIVE Urine Ketones NEGATIVE Urine Blood SMALL H Urine Nitrite NEGATIVE Ur Leukocyte Esterase MODERATE H Urine WBC (Auto) 4 Urine RBC (Auto) 1 03/31/18 07:37 WBC RBC Hgb Hct MCV MCH MCHC RDW Plt Count Seg Neutrophils % Lymphocytes % Monocytes % Eosinophils % Basophils % Absolute Neutrophils Absolute Lymphocytes Absolute Monocytes Absolute Eosinophils Absolute Basophils Retic Count (auto) 1.42 Absolute Retic 0.033 Sodium Potassium Chloride Carbon Dioxide Anion Gap BUN Creatinine Est GFR ( Amer) Est GFR (Non-Af Amer) Glucose Calcium Phosphorus Magnesium Total Bilirubin AST ALT Alkaline Phosphatase Ammonia Total Protein Albumin Triglycerides Cholesterol LDL Cholesterol Direct VLDL Cholesterol HDL Cholesterol Amylase Lipase TSH Free T4 Urine Color Urine Appearance Urine pH Ur Specific [place] Urine Protein Urine Glucose (UA) Urine Ketones Urine Blood Urine Nitrite Ur Leukocyte Esterase Urine WBC (Auto) Urine RBC (Auto) 03/30/18 03/30/18 03/30/18 19:26 19:26 19:26 Creatine Kinase 52 CK-MB (CK-2) 0.49 Troponin I < 0.012 NT-Pro-B Natriuret Pep 501 03/31/18 03/31/18 03/31/18 01:17 01:17 07:37 Creatine Kinase 44 35 CK-MB (CK-2) 0.47 Troponin I < 0.012 NT-Pro-B Natriuret Pep 03/31/18 07:37 Creatine Kinase CK-MB (CK-2) 0.44 Troponin I < 0.012 NT-Pro-B Natriuret Pep Impressions: Breast Ultrasound 03/30/18 00:00 IMPRESSION: Diffuse skin thickening and subcutaneous edema from mastitis. No well circumscribed abscess is identified Chest X-Ray 03/30/18 19:04 IMPRESSION: NO ACUTE FINDINGS. Guidance Fluoroscopy 03/31/18 00:00 IMPRESSION: SUCCESSFUL PLACEMENT OF A 5 FR DUAL LUMEN 28 CM PICC IN THE LEFT SUBCLAVIAN VEIN. THIS LEFT ARM PICC CATHETER SHOULD NOT BE USED FOR POWER INJECTION FOR CT. Interventional Vascular Procedure 03/31/18 00:00 IMPRESSION: SUCCESSFUL PLACEMENT OF A 5 FR DUAL LUMEN 28 CM PICC IN THE LEFT SUBCLAVIAN VEIN. THIS LEFT ARM PICC CATHETER SHOULD NOT BE USED FOR POWER INJECTION FOR CT. PICC Line Insertion 03/31/18 00:00 IMPRESSION: SUCCESSFUL PLACEMENT OF A 5 FR DUAL LUMEN 28 CM PICC IN THE LEFT SUBCLAVIAN VEIN. THIS LEFT ARM PICC CATHETER SHOULD NOT BE USED FOR POWER INJECTION FOR CT. Assessment & Plan - Diagnosis (1) Acute mastitis of left breast Is this a current diagnosis for this admission?: Yes (2) Hypoalbuminemia Is this a current diagnosis for this admission?: Yes (3) Alcohol liver damage Is this a current diagnosis for this admission?: Yes (4) History of bleeding peptic ulcer Is this a current diagnosis for this admission?: Yes (5) Alcohol dependence Qualifiers: Substance use status: unspecified alcohol-induced disorder Qualified Code(s ): F10.29 - Alcohol dependence with unspecified alcohol-induced disorder Is this a current diagnosis for this admission?: Yes (6) Anemia Qualifiers: Anemia type: unspecified type Qualified Code(s): D64.9 - Anemia, unspecified Is this a current diagnosis for this admission?: Yes - Plan Summary Plan Summary: Continue IV antibiotic continue treatment
[2018-03-31 19:28] LABS: FOLATE 8.07 ng/mL (>2.76)
[2018-03-31] MEDS: NORMAL SALINE 10 ML SDV (SCHEDULED) IV SCH (22:26)
[2018-03-31] MEDS: ACETAMINOPHEN 325 MG TABLET PO PRN (22:44)
[2018-03-31] MEDS: DIPHENHYDRAMINE HCL 25 MG CAPSULE PO PRN (22:44)
[2018-04-01] MEDS: CLINDAMYCIN 600 MG/D5W RTU 600 MG/50 ML RTUPB IV SCH ×3 (02:15→17:22)
[2018-04-01] MEDS: TRAMADOL HCL 50 MG TABLET PO PRN ×3 (02:15→21:14)
[2018-04-01] MEDS: LANSOPRAZOLE 30 MG TAB.RAP.DR PO SCH ×2 (05:47→17:22)
[2018-04-01 06:15] LABS: ABSOLUTE BASOPHILS # (AUTO) 0.1 10^3/uL (0.0-0.2); ABSOLUTE EOSINOPHILS # (AUTO) 0.2 10^3/uL (0.0-0.6); ABSOLUTE LYMPHOCYTES (AUTO) 1.6 10^3/uL (0.5-4.7); ABSOLUTE MONOCYTES (AUTO) 0.6 10^3/uL (0.1-1.4); BASOPHILS % (AUTO) 0.6 % (0-2); EOSINOPHILS % (AUTO) 2.6 % (0-6); HEMATOCRIT 20.8 % (36.0-47.0); LYMPHOCYTES % (AUTO) 18.5 % (13-45); MEAN CORPUSCULAR HGB CONC 34.2 g/dL (32.0-36.0); MEAN CORPUSCULAR VOLUME 99 fl (80-97); MONOCYTES % (AUTO) 7.4 % (3-13); PLATELET COUNT 323 10^3/uL (150-450); RED CELL DISTRIBUTION WIDTH 21.5 % (11.5-14.0); SEGMENTED NEUTROPHILS % (AUTO) 70.9 % (42-78); TOTAL CELLS COUNTED % (AUTO) 100 %; WHITE BLOOD COUNT 8.5 10^3/uL (4.0-10.5)
[2018-04-01 06:22] LABS: HEMOGLOBIN 7.1 g/dL (12.0-15.5)
[2018-04-01 06:25] LABS: ALANINE AMINOTRANSFERASE 33 U/L (9-52); ALBUMIN 2.3 g/dL (3.5-5.0); ALKALINE PHOSPHATASE 137 U/L (38-126); ANION GAP 8 (5-19); ASPARTATE AMINO TRANSFERASE 35 U/L (14-36); BILIRUBIN,DIRECT 0.4 mg/dL (0.0-0.4); BILIRUBIN,TOTAL 0.4 mg/dL (0.2-1.3); BLOOD UREA NITROGEN 7 mg/dL (7-20); CALCIUM 8.2 mg/dL (8.4-10.2); CARBON DIOXIDE 24 mmol/L (22-30); CHLORIDE 106 mmol/L (98-107); GLUCOSE 100 mg/dL (75-110); TOTAL PROTEIN 4.9 g/dL (6.3-8.2)
[2018-04-01] MEDS: NICOTINE 21 MG/24 HR PATCH.TD24 TD SCH (09:50)
[2018-04-01] MEDS: MAGNESIUM OXIDE 400 MG TABLET PO SCH (09:50)
[2018-04-01] MEDS: ENOXAPARIN SODIUM INJ 40 MG/0.4 ML DISP.SYRIN SUBCUT SCH (10:12)
[2018-04-01] MEDS: NORMAL SALINE 10 ML SDV (SCHEDULED) IV SCH ×2 (10:12→21:14)
[2018-04-01] MEDS: ACETAMINOPHEN 325 MG TABLET PO PRN ×2 (10:45→21:24)
[2018-04-01] MEDS: DIPHENHYDRAMINE HCL 25 MG CAPSULE PO PRN ×2 (10:46→21:14)
[2018-04-01 18:30] LABS: HEMATOCRIT 26.2 % (36.0-47.0); HEMOGLOBIN 8.7 g/dL (12.0-15.5); MEAN CORPUSCULAR HEMOGLOBIN 32.5 pg (27.0-33.4); MEAN CORPUSCULAR HGB CONC 33.2 g/dL (32.0-36.0); MEAN CORPUSCULAR VOLUME 98 fl (80-97); PLATELET COUNT 356 10^3/uL (150-450); RED BLOOD COUNT 2.67 10^6/uL (3.72-5.28)
--- NOTE | 2018-04-01 20:57 | PDOC DISCHARGE SUMMARY ---
General - Admit/Disc Date/PCP Admission Date/Primary Care Provider: 03/30/18 16:11 ABNER WILKINS MD Discharge Date: 04/01/18 - Discharge Diagnosis (1) Acute mastitis of left breast Is this a current diagnosis for this admission?: Yes (2) Hypoalbuminemia Is this a current diagnosis for this admission?: Yes (3) Alcohol liver damage Is this a current diagnosis for this admission?: Yes (4) History of bleeding peptic ulcer Is this a current diagnosis for this admission?: Yes (5) Alcohol dependence Is this a current diagnosis for this admission?: Yes (6) Anemia Is this a current diagnosis for this admission?: Yes - Additional Information Resuscitation Status: Full Code Prescriptions: Clindamycin HCl 300 mg PO Q8H #21 capsule Home Medications: Megestrol Acetate 20 ml PO DAILY 03/30/18 Clindamycin HCl 300 mg PO Q8H #21 capsule 04/01/18 Albuterol Sulfate [Albuterol Sulfate 2.5mg/3 mL] 3 ml IN RTTIDP PRN 04/05/18 Cholecalciferol (Vitamin D3) [Vitamin D3 1000 Unit Tablet] 1 tab PO DAILY Ibuprofen [Advil] 200 mg PO DAILYP PRN 04/05/18 Magnesium 250 mg PO DAILY 04/05/18 Pantoprazole Sodium [Protonix] 40 mg PO Q12 04/05/18 Thiamine Mononitrate (Vit B1) [Vitamin B-1] 100 mg PO DAILY 04/05/18 History of Present Illness History of Present Illness: MAAME SAENZ is a 52 year old female,She came to the emergency room for evaluation of neck swelling, left breast swelling, redness and pain, bilateral lower extremity swelling. She was recently admitted in [facility] when she had upper GI bleed she underwent upper endoscopy, she was found to have a bleeding ulcer this was treated endoscopically at that time she had very low hemoglobin of 4 she was transfused with many units of packed red blood cells. 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 The last time she was transferred she also had fracture of the right wrist, she underwent open reduction and internal fixation of the wrist. Patient with very poor health probably immunocompromise with predisposition to infection, on examination of the left breast there was tremendous swelling, redness, tenderness when compared to the right breast she apparently had IJ central line when she was admitted.She is also intensively itching there is no evidence of hyperbilirubinemia, she has a history of alcohol liver disease, the itching could be related to liver disease Hospital Course Hospital Course: She was treated with IV antibiotic clindamycin for acute mastitis of the left breast, she also blood transfusion for anemia, she abuse alcohol with a history of alcohol withdrawal syndrome, she was empirically treated with IV lorazepam in anticipation of alcohol withdrawal syndrome. IV access is a challenge in this patient a PICC line was obtained she was advised to stay for a few more days of IV antibiotic but she would like to go home Physical Exam Vital Signs: Temp Pulse Resp BP Pulse Ox 99.0 F 109 H 16 133/81 H 100 04/01/18 19:37 04/01/18 19:37 04/01/18 19:37 04/01/18 19:37 04/01/18 19:37 Intake & Output 03/31/18 04/01/18 04/02/18 06:59 06:59 06:59 Intake Total 1000 1118 1490 Output Total 925 200 Balance 5229 608 8492 Weight 76.4 kg General appearance: PRESENT: no acute distress Head exam: PRESENT: atraumatic, normocephalic Eye exam: PRESENT: conjunctiva pink, EOMI, PERRLA Ear exam: PRESENT: normal external ear exam Mouth exam: PRESENT: moist, tongue midline Neck exam: PRESENT: full ROM Respiratory exam: PRESENT: clear to auscultation dawna Cardiovascular exam: PRESENT: RRR, +S1, +S2 Pulses: PRESENT: normal dorsalis pedis pul, +2 pedal pulses bilateral Vascular exam: PRESENT: normal capillary refill GI/Abdominal exam: PRESENT: normal bowel sounds, soft Rectal exam: PRESENT: deferred Neurological exam: PRESENT: alert, awake, oriented to person, oriented to place , oriented to time, oriented to situation, CN II-XII grossly intact Psychiatric exam: PRESENT: appropriate affect, normal mood Skin exam: PRESENT: dry, intact, warm Results Laboratory Results: 04/01/18 18:10 04/01/18 05:45 04/01/18 04/01/18 04/01/18 05:45 05:45 06:45 WBC 8.5 RBC 2.10 L Hgb 7.1 L Hct 20.8 L MCV 99 H MCH 34.0 H MCHC 34.2 RDW 21.5 H Plt Count 323 Seg Neutrophils % 70.9 Lymphocytes % 18.5 Monocytes % 7.4 Eosinophils % 2.6 Basophils % 0.6 Absolute Neutrophils 6.0 Absolute Lymphocytes 1.6 Absolute Monocytes 0.6 Absolute Eosinophils 0.2 Absolute Basophils 0.1 Sodium 138.0 Potassium 4.0 Chloride 106 Carbon Dioxide 24 Anion Gap 8 BUN 7 Creatinine 0.68 Est GFR ( Amer) > 60 Est GFR (Non-Af Amer) > 60 Glucose 100 Calcium 8.2 L Total Bilirubin 0.4 AST 35 ALT 33 Alkaline Phosphatase 137 H Total Protein 4.9 L Albumin 2.3 L Blood Type B POSITIVE Antibody Screen NEGATIVE 04/01/18 18:10 WBC 9.0 RBC 2.67 L Hgb 8.7 L Hct 26.2 L MCV 98 H MCH 32.5 MCHC 33.2 RDW 20.0 H Plt Count 356 Seg Neutrophils % Lymphocytes % Monocytes % Eosinophils % Basophils % Absolute Neutrophils Absolute Lymphocytes Absolute Monocytes Absolute Eosinophils Absolute Basophils Sodium Potassium Chloride Carbon Dioxide Anion Gap BUN Creatinine Est GFR ( Amer) Est GFR (Non-Af Amer) Glucose Calcium Total Bilirubin AST ALT Alkaline Phosphatase Total Protein Albumin Blood Type Antibody Screen 03/31/18 00:44 Clean Catch Midstream Urine Culture - Final Mixed Urogenital Uzma 03/30/18 03/30/18 03/30/18 19:26 19:26 19:26 Creatine Kinase 52 CK-MB (CK-2) 0.49 Troponin I < 0.012 NT-Pro-B Natriuret Pep 501 03/31/18 03/31/18 03/31/18 01:17 01:17 07:37 Creatine Kinase 44 35 CK-MB (CK-2) 0.47 Troponin I < 0.012 NT-Pro-B Natriuret Pep 03/31/18 07:37 Creatine Kinase CK-MB (CK-2) 0.44 Troponin I < 0.012 NT-Pro-B Natriuret Pep Impressions: Breast Ultrasound 03/30/18 00:00 IMPRESSION: Diffuse skin thickening and subcutaneous edema from mastitis. No well circumscribed abscess is identified Chest X-Ray 03/30/18 19:04 IMPRESSION: NO ACUTE FINDINGS. Guidance Fluoroscopy 03/31/18 00:00 IMPRESSION: SUCCESSFUL PLACEMENT OF A 5 FR DUAL LUMEN 28 CM PICC IN THE LEFT SUBCLAVIAN VEIN. THIS LEFT ARM PICC CATHETER SHOULD NOT BE USED FOR POWER INJECTION FOR CT. Interventional Vascular Procedure 03/31/18 00:00 IMPRESSION: SUCCESSFUL PLACEMENT OF A 5 FR DUAL LUMEN 28 CM PICC IN THE LEFT SUBCLAVIAN VEIN. THIS LEFT ARM PICC CATHETER SHOULD NOT BE USED FOR POWER INJECTION FOR CT. PICC Line Insertion 03/31/18 00:00 IMPRESSION: SUCCESSFUL PLACEMENT OF A 5 FR DUAL LUMEN 28 CM PICC IN THE LEFT SUBCLAVIAN VEIN. THIS LEFT ARM PICC CATHETER SHOULD NOT BE USED FOR POWER INJECTION FOR CT. Qualifiers - * PATIENT BEING DISCHARGED WITH ANY OF THE FOLLOWING DIAGNOSIS: No
[2018-04-02] MEDS: CLINDAMYCIN 600 MG/D5W RTU 600 MG/50 ML RTUPB IV SCH ×2 (01:54→09:16)
[2018-04-02] MEDS: ACETAMINOPHEN 325 MG TABLET PO PRN (02:19)
[2018-04-02 05:45] LABS: ABSOLUTE BASOPHILS # (AUTO) 0.1 10^3/uL (0.0-0.2); ABSOLUTE EOSINOPHILS # (AUTO) 0.3 10^3/uL (0.0-0.6); ABSOLUTE LYMPHOCYTES (AUTO) 1.3 10^3/uL (0.5-4.7); ABSOLUTE MONOCYTES (AUTO) 0.7 10^3/uL (0.1-1.4); ABSOLUTE NEUT (AUTO) 6.8 10^3/uL (1.7-8.2); HEMATOCRIT 24.4 % (36.0-47.0); HEMOGLOBIN 8.3 g/dL (12.0-15.5); LYMPHOCYTES % (AUTO) 14.2 % (13-45); MEAN CORPUSCULAR HEMOGLOBIN 33.3 pg (27.0-33.4); MEAN CORPUSCULAR VOLUME 98 fl (80-97); MONOCYTES % (AUTO) 7.6 % (3-13); PLATELET COUNT 319 10^3/uL (150-450); RED BLOOD COUNT 2.49 10^6/uL (3.72-5.28); RED CELL DISTRIBUTION WIDTH 19.7 % (11.5-14.0); SEGMENTED NEUTROPHILS % (AUTO) 74.2 % (42-78); TOTAL CELLS COUNTED % (AUTO) 100 %; WHITE BLOOD COUNT 9.2 10^3/uL (4.0-10.5)
[2018-04-02] MEDS: LANSOPRAZOLE 30 MG TAB.RAP.DR PO SCH (05:53)
[2018-04-02] MEDS: TRAMADOL HCL 50 MG TABLET PO PRN (05:54)
[2018-04-02] MEDS: DIPHENHYDRAMINE HCL 25 MG CAPSULE PO PRN (05:56)
[2018-04-02 06:08] LABS: ALBUMIN 2.3 g/dL (3.5-5.0); ASPARTATE AMINO TRANSFERASE 33 U/L (14-36); BLOOD UREA NITROGEN 10 mg/dL (7-20); GLUCOSE 90 mg/dL (75-110); POTASSIUM 4.1 mmol/L (3.6-5.0)
[2018-04-02 06:24] LABS: ALANINE AMINOTRANSFERASE 38 U/L (9-52); ALKALINE PHOSPHATASE 133 U/L (38-126); ANION GAP 9 (5-19); BILIRUBIN,DIRECT 0.5 mg/dL (0.0-0.4); BILIRUBIN,TOTAL 0.5 mg/dL (0.2-1.3); CALCIUM 7.8 mg/dL (8.4-10.2); CARBON DIOXIDE 23 mmol/L (22-30); CHLORIDE 105 mmol/L (98-107); SODIUM 136.9 mmol/L (137-145); TOTAL PROTEIN 4.9 g/dL (6.3-8.2)
[2018-04-02] MEDS: ENOXAPARIN SODIUM INJ 40 MG/0.4 ML DISP.SYRIN SUBCUT SCH (09:11)
[2018-04-02] MEDS: NICOTINE 21 MG/24 HR PATCH.TD24 TD SCH (09:16)
[2018-04-02] MEDS: MAGNESIUM OXIDE 400 MG TABLET PO SCH (09:16)
[2018-04-02] MEDS: NORMAL SALINE 10 ML SDV (SCHEDULED) IV SCH (09:17)
[2018-04-02 11:05] VITALS: BP 120/68
== END 2018-04-02 11:45 | disposition home health service (06) | DRG 601 ==
LOC: ER 12:18 → EH 16:11 → 5 18:45
PROVIDERS: ADMIT Internal Medicine; ATTEND Internal Medicine
PROC: 05H633Z Insertion of Infusion Device into Left Subclavian Vein, Percutaneous Approach (ICD-10-PCS; principal; 2018-03-31)
PROC: B5171ZA Fluoroscopy of Left Subclavian Vein using Low Osmolar Contrast, Guidance (ICD-10-PCS; 2018-03-31)
PROC: B547ZZA Ultrasonography of Left Subclavian Vein, Guidance (ICD-10-PCS; 2018-03-31)
DX: N61.0 Mastitis without abscess (principal); E88.09 Other disorders of plasma-protein metabolism, not elsewhere classified; F10.20 Alcohol dependence, uncomplicated; K70.30 Alcoholic cirrhosis of liver without ascites; D64.9 Anemia, unspecified; J44.9 Chronic obstructive pulmonary disease, unspecified; Z79.899 Other long term (current) drug therapy; F17.210 Nicotine dependence, cigarettes, uncomplicated; Z86.718 Personal history of other venous thrombosis and embolism; Z85.72 Personal history of non-Hodgkin lymphomas; Z90.710 Acquired absence of both cervix and uterus; Z87.19 Personal history of other diseases of the digestive system; Z96.642 Presence of left artificial hip joint; Z96.651 Presence of right artificial knee joint; Z98.51 Tubal ligation status
CPT/HCPCS: 36415; 36430; 36569; 71045; 71046; 76642; 76937; 77001; 80048; 80053; 80061; 80076; 80307; 81001; 82140; 82150; 82272; 82550; 82553; 82607; 82728; 82746; 83036; 83540; 83550; 83605; 83690; 83735; 83880; 84100; 84439; 84443; 84484; 85025; 85027; 85045; 85610; 85730; 86850; 86900; 86901; 86920; 87040; 87070; 87086; 87205; 93005; 93010; 96361; 96374; 96375; 99285; J0696; J1170; J1642; J1940; J2270; J2405; J3490; J7030; P9016

== ENCOUNTER 2018-04-05 07:27 | Inpatient (IN) | payer MEDICAID ==
[2018-04-05] MEDS ORDERED: ONDANSETRON 4 MG TAB.RAPDIS PO ONE (07:55)
[2018-04-05] MEDS ORDERED: OXYCODONE-ACETAMINOPHEN 5-325 MG TABLET PO ONE (07:55)
--- NOTE | 2018-04-05 07:55 | ER Document Report ---
ED Extremity Problem, Lower - General Mode of Arrival: Medic Information source: Patient TRAVEL OUTSIDE OF THE [place] IN LAST 30 DAYS: No <KJ BARONE - Last Filed: 04/05/18 12:08> <FELICE MEDINA - Last Filed: 04/05/18 16:12> - General Chief Complaint: Leg Pain Stated Complaint: FALL/LEG PAIN Time Seen by Provider: 04/05/18 07:45 Notes: 52 year old female that presents to the emergency department today with complaints of right leg pain secondary to a fall. Patient states she had no symptoms prior to her fall, her legs just "gave out". Patient states that she landed on her buttocks and her right leg "flopped over and smashed the floor". Patient was transferred from here on March 23 for a GI bleed and was transfused in [place]. An incidental finding while in [place] was a right wrist fracture she had an ORIF. (KJ BARONE) - Related Data Allergies/Adverse Reactions: No Known Allergies Allergy (Verified 04/05/18 07:38) Past Medical History - General Information source: Patient - Social History Smoking Status: Smoker,Current Status Unk Frequency of alcohol use: None Drug Abuse: None Lives with: Family Family History: Reviewed & Not Pertinent - Past Medical History Cardiac Medical History: Reports: Hx DVT Pulmonary Medical History: Reports: Hx COPD, Hx Pneumonia, Hx Intubation, Hx Respiratory Failure Malignancy Medical History: Reports: Hx Lymphoma - History of non-Hodgkin's lymphoma diagnosed 13 years ago. Had limited chem GI Medical History: Reports: Hx Cirrhosis Past Surgical History: Reports: Hx Section, Hx Hysterectomy, Hx Orthopedic Surgery - Left hip replacement, right knee, Hx Tonsillectomy, Hx Tubal Ligation - Immunizations Hx Diphtheria, Pertussis, Tetanus Vaccination: Yes <KJ BARONE - Last Filed: 04/05/18 12:08> Review of Systems - Review of Systems Constitutional: No symptoms reported EENT: No symptoms reported Cardiovascular: No symptoms reported Respiratory: No symptoms reported Gastrointestinal: No symptoms reported Genitourinary: No symptoms reported Female Genitourinary: No symptoms reported Musculoskeletal: See HPI, Other - right leg pain Skin: No symptoms reported Hematologic/Lymphatic: No symptoms reported Neurological/Psychological: No symptoms reported -: Yes All other systems reviewed and negative <KJ BARONE - Last Filed: 04/05/18 12:08> Physical Exam <KJ BARONE - Last Filed: 04/05/18 12:08> <FELICE MEDINA - Last Filed: 04/05/18 16:12> - Vital signs Vitals: Temp Pulse Resp BP Pulse Ox 98.6 F 109 H 20 144/104 H 97 04/05/18 07:40 04/05/18 07:40 04/05/18 07:40 04/05/18 07:40 04/05/18 07:40 - Notes Notes: Physical Exam: General: Alert. HEENT: Normocephalic. Atraumatic. PERRL. Extraocular movements intact. Oropharynx clear. Neck: Supple. Non-tender. Respiratory: No respiratory distress. Coarse breath sounds with wheezing throughout bilaterally consistent with smoking history. Cardiovascular: Regular rate and rhythm. Abdominal: Normal Inspection. Non-tender. No distension. Normal Bowel Sounds. Back: Non-tender. No deformity or step off. Extremities: Moves all four extremities. Upper extremities: Normal inspection. Normal ROM. Lower extremities: Large knot over the left fibula head consistent with surgical history. Pitting edema to bilateral lower extremities. Extensive edema around the right knee. Pain with palpation of right knee and right hip. Right hip is held in external rotation and the right knee is held in flexion for comfort. Neurological: Normal cognition. AAOx4. Normal speech. Psychological: Normal affect. Normal Mood. Skin: Left breast is swollen and ttp medially, no skin thickening. (KJ BARONE) Course - Laboratory Result Diagrams: 04/05/18 10:25 04/05/18 08:51 <KJ BARONE - Last Filed: 04/05/18 12:08> - Laboratory Result Diagrams: 04/05/18 10:25 04/05/18 08:51 - Diagnostic Test Radiology reviewed: Reports reviewed - X-ray suggests, and a bone scan confirms a minimally depressed medial tibial plateau fractur on the right. - Consults Dr. Higuera Time consulted: 15:15 Consulted provider: will see as inpatient <FELICE MEDINA - Last Filed: 04/05/18 16:12> - Re-evaluation Re-evalutation: 04/05/18 16:10 The patient's white blood cell count is much higher than when she was admitted with her mastitis last week. Her first lactic acid is slightly elevated. A repeat lactic acid is even higher. She was discharged on a Wednesday, it is unlikely she got any prescriptions filled. A review of the computerized records that access the pharmacy network that I can view today, it does not appear that a prescription for any antibiotic is been filled recently. (FELICE MEDINA) - Vital Signs Vital signs: Temp Pulse Resp BP Pulse Ox 98.6 F 109 H 18 144/104 H 99 04/05/18 07:40 04/05/18 07:40 04/05/18 08:51 04/05/18 07:40 04/05/18 09:35 - Laboratory Laboratory results interpreted by me: 04/05/18 04/05/18 04/05/18 08:51 10:25 10:25 WBC 13.0 H RBC 2.62 L Hgb 8.7 L Hct 25.6 L MCV 98 H RDW 21.4 H Seg Neutrophils % 84.1 H Lymphocytes % 7.1 L Absolute Neutrophils 10.9 H Sodium 136.6 L BUN 5 L Lactic Acid 2.4 H Direct Bilirubin 0.5 H Alkaline Phosphatase 149 H Total Protein 5.9 L Albumin 2.7 L 04/05/18 15:27 WBC RBC Hgb Hct MCV RDW Seg Neutrophils % Lymphocytes % Absolute Neutrophils Sodium BUN Lactic Acid 3.3 H Direct Bilirubin Alkaline Phosphatase Total Protein Albumin Discharge <KJ BARONE - Last Filed: 04/05/18 12:08> - [facility]charge [facility] Unit Admitted: Medical Floor <FELICE MEDINA - Last Filed: 04/05/18 16:12> - Discharge Clinical Impression: Mastitis Leukocytosis Qualifiers: Leukocytosis type: unspecified Qualified Code(s): D72.829 - Elevated white blood cell count, unspecified Right medial tibial plateau fracture Qualifiers: Encounter type: initial encounter Fracture type: closed Qualified Code(s): S82.131A - Displaced fracture of medial condyle of right tibia, initial encounter for closed fracture Condition: Stable Disposition: ADMITTED INPATIENT Scribe Attestation: 04/05/18 09:04 I personally performed the services described in the documentation, reviewed and edited the documentation which was dictated to the scribe in my presence, and it accurately records my words and actions. (FELICE MEDINA) Scribe Documentation - Scribe Written by Scribe:: Pedro Blackman, 04/05/2018 1343 acting as scribe for :: Zoran <KJ BARONE - Last Filed: 04/05/18 12:08>
[2018-04-05 09:40] LABS: ALANINE AMINOTRANSFERASE 26 U/L (9-52); ALBUMIN 2.7 g/dL (3.5-5.0); ALKALINE PHOSPHATASE 149 U/L (38-126); ANION GAP 10 (5-19); ASPARTATE AMINO TRANSFERASE 28 U/L (14-36); BILIRUBIN,DIRECT 0.5 mg/dL (0.0-0.4); BLOOD UREA NITROGEN 5 mg/dL (7-20); CALCIUM 8.4 mg/dL (8.4-10.2); CARBON DIOXIDE 22 mmol/L (22-30); CHLORIDE 105 mmol/L (98-107); CREATINE KINASE 51 U/L (30-135); GLUCOSE 86 mg/dL (75-110); SODIUM 136.6 mmol/L (137-145); TOTAL PROTEIN 5.9 g/dL (6.3-8.2)
[2018-04-05 10:20] LABS: APPEARANCE,URINE CLEAR; BILIRUBIN,URINE NEGATIVE (NEGATIVE); COLOR,URINE YELLOW; GLUCOSE, URINE NEGATIVE (NEGATIVE); KETONES,URINE NEGATIVE (NEGATIVE); LEUKOCYTE ESTERASE,URINE NEGATIVE (NEGATIVE); NITRITE,URINE NEGATIVE (NEGATIVE); PROTEIN,URINE NEGATIVE (NEGATIVE); UROBILINOGEN,URINE NEGATIVE mg/dL (<2.0)
--- NOTE | 2018-04-05 10:20 | RADIOLOGY REPORT (SQ) ---
EXAM DESCRIPTION: FEMUR RIGHT COMPLETED DATE/TIME: 04/05/2018 10:04 am REASON FOR STUDY: fall, pain, swelling fell 2200 hours Wednesday night, unable to bear weight COMPARISON: Right knee films same date, right femur films 04/16/2016 NUMBER OF VIEWS: Two views. TECHNIQUE: Two radiographic images acquired of the right femur to include hip and knee in at least o ne projection. LIMITATIONS: Nonstandard radiographic projections FINDINGS: Bones are osteoporotic. Patient has an old right proximal femoral intertrochanteric fracture stabilized by a lag screw and sh ort intramedullary nail. There is callus formation/sclerosis at the intertrochanteric region right h ip. Along the distal right femur, patient has hardware fixing an old healed comminuted distal femoral apolonia physis fracture. No lucency around the screws worrisome for loosening. There is an old cerclage around the patella from old healed patellar fracture. A large suprapatellar knee joint effusion is present. Old healed right inferior pubic ramus fracture. No gross acute displaced fracture over the right femur. Findings discussed with the emergency room a ttending physician Dr Meehan IMPRESSION: Large suprapatellar knee joint effusion. Proximal femoral, distal femoral, and patellar hardware without lucency worrisome for loosening or hema ny findings worrisome for acute femoral re- fracture TECHNICAL DOCUMENTATION: JOB ID: [id number] [employer]- All Rights Reserved Reading location - IP/workstation name: [email or web address]
--- NOTE | 2018-04-05 10:22 | RADIOLOGY REPORT (SQ) ---
EXAM DESCRIPTION: KNEE RIGHT 3 VIEWS COMPLETED DATE/TIME: 04/05/2018 10:04 am REASON FOR STUDY: fall, pain, swelling COMPARISON: Right femur two views same date Right knee two views 01/31/2017 NUMBER OF VIEWS: Two views TECHNIQUE: AP cross-table films, lateral knee included in the femur films right side LIMITATIONS: None. FINDINGS: Bones are osteoporotic. There is minimal depression of the articular surface medial tibial plateau, with a subcortical a luce ncy fracture line evident. Large suprapatellar knee joint effusion. Distal femoral and patellar fracture hardware unchanged. IMPRESSION: Minimal depression of the medial tibial plateau articular surface with subcortical lucen cy worrisome for medial tibial plateau fracture. Findings discussed with Dr. Meehan in the emergency room TECHNICAL DOCUMENTATION: JOB ID: [id number] [employer]- All Rights Reserved Reading location - IP/workstation name: [email or web address]
[2018-04-05 10:42] LABS: ABSOLUTE BASOPHILS # (AUTO) 0.1 10^3/uL (0.0-0.2); ABSOLUTE EOSINOPHILS # (AUTO) 0.3 10^3/uL (0.0-0.6); ABSOLUTE LYMPHOCYTES (AUTO) 0.9 10^3/uL (0.5-4.7); ABSOLUTE MONOCYTES (AUTO) 0.8 10^3/uL (0.1-1.4); ABSOLUTE NEUT (AUTO) 10.9 10^3/uL (1.7-8.2); BASOPHILS % (AUTO) 0.5 % (0-2); EOSINOPHILS % (AUTO) 2.5 % (0-6); HEMATOCRIT 25.6 % (36.0-47.0); HEMOGLOBIN 8.7 g/dL (12.0-15.5); LYMPHOCYTES % (AUTO) 7.1 % (13-45); MEAN CORPUSCULAR HEMOGLOBIN 33.2 pg (27.0-33.4); MEAN CORPUSCULAR VOLUME 98 fl (80-97); MONOCYTES % (AUTO) 5.8 % (3-13); PLATELET COUNT 275 10^3/uL (150-450); RED BLOOD COUNT 2.62 10^6/uL (3.72-5.28); RED CELL DISTRIBUTION WIDTH 21.4 % (11.5-14.0); SEGMENTED NEUTROPHILS % (AUTO) 84.1 % (42-78); TOTAL CELLS COUNTED % (AUTO) 100 %
[2018-04-05 11:20] LABS: ANISOCYTOSIS 3+; HYPOCHROMASIA 2+; PLATELET CLUMPS PRESENT; PLATELET COMMENT ADEQUATE; PLATELET LARGE PRESENT; POLYCHROMASIA 1+
[2018-04-05] MEDS ORDERED: HYDROMORPHONE HCL INJ/PF 2 MG/ML AMPULE IM ONE (12:45)
--- NOTE | 2018-04-05 15:12 | RADIOLOGY REPORT (SQ) ---
EXAM DESCRIPTION: NM 3 PHASE BONE SCAN COMPLETED DATE/TIME: 04/05/2018 2:44 pm REASON FOR STUDY: Right knee pain COMPARISON: Right femur and right knee films 04/05/2018 CT chest 01/09/2018 Left knee films 11/29/2017 Right hip films 01/31/2017 RADIONUCLIDE AND DOSE: 21.1 millicuries Tc99m MDP. The route of agent administration: Intravenous. ADDITIONAL DRUGS AND DOSES: None. TECHNIQUE: Following injection of the radiopharmaceutical, serial blood flow images acquired. Equil ibrium blood pool images then acquired. Routine delayed images at 3 hours acquired of the areas of c linical concern with additional focused images as needed. AREA OF INTEREST: Bilateral lower extremities LIMITATIONS: None. FINDINGS: VASCULAR FLOW IMAGES: No asymmetry or focal areas of hyperemia. BLOOD POOL IMAGES: Increased uptake right knee BONES: On the delayed images, there is bandlike increased activity along the right proximal tibial pl ateau in the area of minimally depressed fracture seen on plain films 04/05/2018. There is no abnormal increased uptake over the right distal femur in the area of distal femur hardwar e. There is mild increased uptake over the lesser trochanter right proximal femur. This correlates with benign bony overgrowth on the accompanying plain films today. Remainder of the right proximal femur is otherwise unremarkable by bone scan. There is very mild increased uptake along the left proximal tibia, and right distal tibia and fibula in areas of old remote prior fractures. No abnormal uptake over the pelvis worrisome for radiographically occult pelvic fracture This result was discussed with Dr. Meehan in the emergency room IMPRESSION: Increased uptake in a linear bandlike distribution along the medial tibial plateau right knee, correlates with subtle fracture seen on plain films 04/05/2018. COMMENT: Quality measure 147: Current bone scan is compared with any available plain radiographs, p rior bone scans, and CT/MRI. TECHNICAL DOCUMENTATION: JOB ID: [id number] [employer]- All Rights Reserved Reading location - IP/workstation name: [email or web address]
[2018-04-05] MEDS ORDERED: CLINDAMYCIN HCL 150 MG CAPSULE PO ONE (16:09)
[2018-04-05] MEDS: TRAMADOL HCL 50 MG TABLET PO PRN (19:51)
[2018-04-05] MEDS ORDERED: ALBUTEROL SULFATE 0.083% NEB 2.5 MG/3 ML AMPUL NEB PRN (19:59)
[2018-04-05] MEDS ORDERED: CLINDAMYCIN HCL 300 MG PO SCH (20:00)
[2018-04-06] MEDS: THIAMINE HCL 100 MG TABLET PO SCH ×2 (00:13→10:16)
[2018-04-06] MEDS: CHOLECALCIFEROL (D3) 1,000 UNIT TABLET PO SCH ×2 (00:13→10:20)
[2018-04-06] MEDS: CLINDAMYCIN HCL 150 MG CAPSULE PO SCH ×5 (00:14→22:34)
[2018-04-06] MEDS: LANSOPRAZOLE 30 MG TAB.RAP.DR PO SCH ×3 (00:14→22:34)
[2018-04-06] MEDS ORDERED: LORAZEPAM INJ 2 MG/1 ML VIAL IV ONE (01:30)
[2018-04-06] MEDS: TRAMADOL HCL 50 MG TABLET PO PRN ×3 (02:10→22:34)
[2018-04-06] MEDS: CLINDAMYCIN HCL 150 MG CAPSULE ONE ×2 (02:11→02:23)
[2018-04-06] MEDS: LORAZEPAM INJ 2 MG/1 ML VIAL IV SCH ×4 (06:00→23:31)
--- NOTE | 2018-04-06 06:45 | PDOC CONSULTATION ---
Consultation Consult Date: 04/06/18 Consult reason:: Right tibial plateau fracture History of Present Illness Admission Date/PCP: 04/05/18 15:30 ABNER WILKINS MD History of Present Illness: MAAME SAENZ is a 52 year old female known to me from multiple previous fractures now with a minimally displaced right medial plateau fracture. Past Medical History Cardiac Medical History: Reports: DVT Pulmonary Medical History: Reports: Chronic Obstructive Pulmonary Disease (COPD) , Intubation, Pneumonia, Respiratory Failure Denies: Tuberculosis Malignancy Medical History: Reports: Lymphoma - History of non-Hodgkin's lymphoma diagnosed 13 years ago. Had limited chem GI Medical History: Reports: Cirrhosis Psychiatric Medical History: Denies: Depression Hematology: Reports: Anemia Past Surgical History Past Surgical History: Reports: Section, Hysterectomy, Orthopedic Surgery - Left hip replacement, right knee, Tonsillectomy, Tubal Ligation Denies: Pacemaker Social History Information Source: Patient, Dr. Soliman, [facility] Records Lives with: Family Smoking Status: Smoker,Current Status Unk Frequency of Alcohol Use: Heavy Hx Recreational Drug Use: No Drugs: Cocaine Hx Prescription Drug Abuse: No Family History Family History: Reviewed & Not Pertinent Parental Family History Reviewed: No Children Family History Reviewed: No Sibling(s) Family History Reviewed.: No Medication/Allergy Home Medications: Megestrol Acetate 20 ml PO DAILY 03/30/18 Clindamycin HCl 300 mg PO Q8H #21 capsule 04/01/18 Albuterol Sulfate [Albuterol Sulfate 2.5mg/3 mL] 3 ml IN RTTIDP PRN 04/05/18 Cholecalciferol (Vitamin D3) [Vitamin D3 1000 Unit Tablet] 1 tab PO DAILY Ibuprofen [Advil] 200 mg PO DAILYP PRN 04/05/18 Magnesium 250 mg PO DAILY 04/05/18 Pantoprazole Sodium [Protonix] 40 mg PO Q12 04/05/18 Thiamine Mononitrate (Vit B1) [Vitamin B-1] 100 mg PO DAILY 04/05/18 Allergies/Adverse Reactions: No Known Allergies Allergy (Verified 04/05/18 07:38) Review of Systems All systems: as per PMH Physical Exam Vital Signs: Temp Pulse Resp BP Pulse Ox 37.2 C 107 H 18 107/66 98 04/06/18 00:16 04/06/18 00:16 04/06/18 00:16 04/06/18 00:16 04/06/18 00:16 Intake & Output 04/04/18 04/05/18 04/06/18 06:59 06:59 06:59 Output Total 900 Balance -900 Weight 82.8 kg General appearance: PRESENT: no acute distress, mild distress Head exam: PRESENT: normocephalic Respiratory exam: PRESENT: unlabored Cardiovascular exam: PRESENT: RRR Pulses: PRESENT: +1 pedal pulses bilateral Vascular exam: PRESENT: normal capillary refill GI/Abdominal exam: PRESENT: soft Rectal exam: PRESENT: deferred Extremities exam: PRESENT: tenderness, other - Patient with significant pain associate with any motion of the right lower extremity. Leg lengths are equal. Distal neurovascular examination is intact. Neurological exam: PRESENT: alert, awake, oriented to person, oriented to place , oriented to time, oriented to situation. ABSENT: motor sensory deficit Psychiatric exam: PRESENT: appropriate affect, normal mood. ABSENT: homicidal ideation, suicidal ideation Skin exam: PRESENT: dry, intact, warm. ABSENT: cyanosis, rash Results Impressions: Femur X-Ray 04/05/18 07:59 IMPRESSION: Large suprapatellar knee joint effusion. Proximal femoral, distal femoral, and patellar hardware without lucency worrisome for loosening or bony findings worrisome for acute femoral re- fracture Knee X-Ray 04/05/18 07:59 IMPRESSION: Minimal depression of the medial tibial plateau articular surface with subcortical lucency worrisome for medial tibial plateau fracture. Findings discussed with Dr. Meehan in the emergency room Bone Scan Nuclear Medicine 04/05/18 10:24 IMPRESSION: Increased uptake in a linear bandlike distribution along the medial tibial plateau right knee, correlates with subtle fracture seen on plain films 04/05/2018. Status: Imported from PACS Assessment & Plan - Diagnosis (1) Right medial tibial plateau fracture Qualifiers: Encounter type: initial encounter Fracture type: closed Qualified Code(s) : S82.131A - Displaced fracture of medial condyle of right tibia, initial encounter for closed fracture Is this a current diagnosis for this admission?: Yes Plan: 52-year-old black female with multiple ongoing medical comorbidities and also multiple musculoskeletal issues now with admittedly displaced right medial tibial plateau fracture. I think in light of the patient's bone fragility, comorbidities, and the fact that this is a minimally displaced fracture that this can be treated nonoperatively. Patient can be placed in a knee immobilizer and mobilized on a touchdown weightbearing restriction with physical therapy. - Time Time Spent: 50 to 70 Minutes Anticipated discharge: Home with Homehealth Within: Other
[2018-04-06] MEDS: MAGNESIUM OXIDE 400 MG TABLET PO SCH (10:16)
--- NOTE | 2018-04-06 16:19 | PDOC H&P ---
History of Present Illness Admission Date/PCP: 04/05/18 15:30 ABNER WILKINS MD History of Present Illness: MAAME SAENZ is a 52 year old female she was discharged about 3 days ago when she was admitted for the management of cellulitis of the left breast. She stated that her knee give way she felt and sustained injury to the right knee. She could not bear weight on the knee in the emergency room she was evaluated x- ray was done, it demonstrated medial tibia plateau fracture of the right knee she also had a bone scan done as well which correlates with the x-ray finding. She is not able to bear weight, with severe pain. History of alcohol abuse with alcohol related complications. She has a history of multiple falls, she recently had a fracture of the right wrist that was operated upon which ORIF. Past Medical History Cardiac Medical History: Reports: DVT Pulmonary Medical History: Reports: Chronic Obstructive Pulmonary Disease (COPD) , Intubation, Pneumonia, Respiratory Failure Malignancy Medical History: Reports: Lymphoma - History of non-Hodgkin's lymphoma diagnosed 13 years ago. Had limited chem GI Medical History: Reports: Cirrhosis Psychiatric Medical History: Denies: Depression Hematology: Reports: Anemia Past Surgical History Past Surgical History: Reports: Section, Hysterectomy, Orthopedic Surgery - Left hip replacement, right knee, Tonsillectomy, Tubal Ligation Social History Lives with: Family Smoking Status: Current Some Day Smoker Frequency of Alcohol Use: Heavy Hx Recreational Drug Use: No Drugs: Cocaine Hx Prescription Drug Abuse: No Family History Family History: Reviewed & Not Pertinent Parental Family History Reviewed: Yes Children Family History Reviewed: Yes Sibling(s) Family History Reviewed.: Yes Medication/Allergy Home Medications: Megestrol Acetate 20 ml PO DAILY 03/30/18 Clindamycin HCl 300 mg PO Q8H #21 capsule 04/01/18 Albuterol Sulfate [Albuterol Sulfate 2.5mg/3 mL] 3 ml IN RTTIDP PRN 04/05/18 Cholecalciferol (Vitamin D3) [Vitamin D3 1000 Unit Tablet] 1 tab PO DAILY Ibuprofen [Advil] 200 mg PO DAILYP PRN 04/05/18 Magnesium 250 mg PO DAILY 04/05/18 Pantoprazole Sodium [Protonix] 40 mg PO Q12 04/05/18 Thiamine Mononitrate (Vit B1) [Vitamin B-1] 100 mg PO DAILY 04/05/18 Allergies/Adverse Reactions: No Known Allergies Allergy (Verified 04/05/18 07:38) Review of Systems Constitutional: ABSENT: chills, fever(s), headache(s), weight gain, weight loss Eyes: ABSENT: visual disturbances Ears: ABSENT: hearing changes Cardiovascular: ABSENT: chest pain, dyspnea on exertion, edema, orthropnea, palpitations Respiratory: ABSENT: cough, hemoptysis Gastrointestinal: ABSENT: abdominal pain, constipation, diarrhea, hematemesis, hematochezia, nausea, vomiting Genitourinary: ABSENT: dysuria, hematuria Musculoskeletal: PRESENT: other - Right knee pain. ABSENT: joint swelling Integumentary: ABSENT: rash, wounds Neurological: ABSENT: abnormal gait, abnormal speech, confusion, dizziness, focal weakness, syncope Psychiatric: ABSENT: anxiety, depression, homidical ideation, suicidal ideation Endocrine: ABSENT: cold intolerance, heat intolerance, menstrual abnormalities, polydipsia, polyuria Hematologic/Lymphatic: ABSENT: easy bleeding, easy bruising, lymphadenopathy Physical Exam Vital Signs: Temp Pulse Resp BP Pulse Ox 98.7 F 101 H 22 H 119/70 98 04/06/18 11:23 04/06/18 11:23 04/06/18 11:23 04/06/18 11:23 04/06/18 11:23 Intake & Output 04/05/18 04/06/18 04/07/18 06:59 06:59 06:59 Output Total 900 Balance -900 Weight 82.8 kg General appearance: PRESENT: mild distress Head exam: PRESENT: atraumatic, normocephalic Eye exam: PRESENT: conjunctiva pink, EOMI, PERRLA Ear exam: PRESENT: normal external ear exam Mouth exam: PRESENT: moist, tongue midline Neck exam: PRESENT: full ROM Respiratory exam: PRESENT: clear to auscultation dawna Cardiovascular exam: PRESENT: RRR Pulses: PRESENT: normal dorsalis pedis pul, +2 pedal pulses bilateral Vascular exam: PRESENT: normal capillary refill GI/Abdominal exam: PRESENT: normal bowel sounds, soft Rectal exam: PRESENT: deferred Musculoskeletal exam: PRESENT: deformity, tenderness, other - Right knee swelling Neurological exam: PRESENT: alert, awake, oriented to person, oriented to place , oriented to time, oriented to situation, CN II-XII grossly intact Psychiatric exam: PRESENT: appropriate affect, normal mood Skin exam: PRESENT: dry, intact, warm Results Impressions: Femur X-Ray 04/05/18 07:59 IMPRESSION: Large suprapatellar knee joint effusion. Proximal femoral, distal femoral, and patellar hardware without lucency worrisome for loosening or bony findings worrisome for acute femoral re- fracture Knee X-Ray 04/05/18 07:59 IMPRESSION: Minimal depression of the medial tibial plateau articular surface with subcortical lucency worrisome for medial tibial plateau fracture. Findings discussed with Dr. Meehan in the emergency room Bone Scan Nuclear Medicine 04/05/18 10:24 IMPRESSION: Increased uptake in a linear bandlike distribution along the medial tibial plateau right knee, correlates with subtle fracture seen on plain films 04/05/2018. Assessment & Plan - Diagnosis (1) Right medial tibial plateau fracture Qualifiers: Encounter type: initial encounter Fracture type: closed Qualified Code(s) : S82.131A - Displaced fracture of medial condyle of right tibia, initial encounter for closed fracture Is this a current diagnosis for this admission?: Yes Plan: Orthopedic consultation is obtained (2) Acute mastitis of left breast Is this a current diagnosis for this admission?: Yes Plan: Continue p.o. clindamycin (3) Alcohol dependence Qualifiers: Substance use status: unspecified alcohol-induced disorder Qualified Code(s ): F10.29 - Alcohol dependence with unspecified alcohol-induced disorder Is this a current diagnosis for this admission?: Yes Plan: Alcohol dependence with history of alcohol withdrawal syndrome, start empirically on intravenous lorazepam (4) Multiple falls Is this a current diagnosis for this admission?: Yes Plan: Multiple falls with fracture, she needs to be screened for osteoporosis especially with alcohol dependency history,
--- NOTE | 2018-04-06 17:01 | PDOC PROGRESS REPORT ---
Subjective Progress Note for:: 04/06/18 Subjective:: She was seen by the bedside, complaining of pain of the right knee, she cannot bear weight on the knee, Ybarra catheter in place Reason For Visit: MASTITIS Physical Exam Vital Signs: Temp Pulse Resp BP Pulse Ox 99.1 F 109 H 20 117/61 95 04/06/18 15:24 04/06/18 15:24 04/06/18 15:24 04/06/18 15:24 04/06/18 15:24 Intake & Output 04/05/18 04/06/18 04/07/18 06:59 06:59 06:59 Output Total 900 Balance -900 Weight 82.8 kg General appearance: PRESENT: mild distress Eye exam: PRESENT: PERRLA Respiratory exam: PRESENT: clear to auscultation dawna Cardiovascular exam: PRESENT: +S1, +S2 GI/Abdominal exam: PRESENT: soft Neurological exam: PRESENT: alert Results Impressions: Femur X-Ray 04/05/18 07:59 IMPRESSION: Large suprapatellar knee joint effusion. Proximal femoral, distal femoral, and patellar hardware without lucency worrisome for loosening or bony findings worrisome for acute femoral re- fracture Knee X-Ray 04/05/18 07:59 IMPRESSION: Minimal depression of the medial tibial plateau articular surface with subcortical lucency worrisome for medial tibial plateau fracture. Findings discussed with Dr. Meehan in the emergency room Bone Scan Nuclear Medicine 04/05/18 10:24 IMPRESSION: Increased uptake in a linear bandlike distribution along the medial tibial plateau right knee, correlates with subtle fracture seen on plain films 04/05/2018. Assessment & Plan - Diagnosis (1) Right medial tibial plateau fracture Qualifiers: Encounter type: initial encounter Fracture type: closed Qualified Code(s) : S82.131A - Displaced fracture of medial condyle of right tibia, initial encounter for closed fracture Is this a current diagnosis for this admission?: Yes (2) Acute mastitis of left breast Is this a current diagnosis for this admission?: Yes (3) Alcohol dependence Qualifiers: Substance use status: unspecified alcohol-induced disorder Qualified Code(s ): F10.29 - Alcohol dependence with unspecified alcohol-induced disorder Is this a current diagnosis for this admission?: Yes (4) Multiple falls Is this a current diagnosis for this admission?: Yes - Plan Summary Plan Summary: She said the Ultram is not effective for pain control, I am very concerned about giving her potent opioid because of the tendency to cause respiratory depression she has alcohol abuse she is already empirically on lorazepam to attenuate alcohol withdrawal syndrome, she will be given low-dose morphine 0.25 IV every 6 as needed
[2018-04-06 17:57] LABS: ABSOLUTE BASOPHILS # (AUTO) 0.1 10^3/uL (0.0-0.2); ABSOLUTE EOSINOPHILS # (AUTO) 0.5 10^3/uL (0.0-0.6); ABSOLUTE LYMPHOCYTES (AUTO) 1.3 10^3/uL (0.5-4.7); ABSOLUTE MONOCYTES (AUTO) 0.9 10^3/uL (0.1-1.4); ABSOLUTE NEUT (AUTO) 9.7 10^3/uL (1.7-8.2); BASOPHILS % (AUTO) 0.7 % (0-2); EOSINOPHILS % (AUTO) 4.3 % (0-6); HEMATOCRIT 25.8 % (36.0-47.0); HEMOGLOBIN 8.7 g/dL (12.0-15.5); LYMPHOCYTES % (AUTO) 10.5 % (13-45); MEAN CORPUSCULAR HEMOGLOBIN 33.1 pg (27.0-33.4); MEAN CORPUSCULAR HGB CONC 33.7 g/dL (32.0-36.0); MEAN CORPUSCULAR VOLUME 98 fl (80-97); MONOCYTES % (AUTO) 6.9 % (3-13); PLATELET COUNT 271 10^3/uL (150-450); RED BLOOD COUNT 2.63 10^6/uL (3.72-5.28); RED CELL DISTRIBUTION WIDTH 22.7 % (11.5-14.0); SEGMENTED NEUTROPHILS % (AUTO) 77.6 % (42-78); TOTAL CELLS COUNTED % (AUTO) 100 %; WHITE BLOOD COUNT 12.5 10^3/uL (4.0-10.5)
[2018-04-06 18:21] LABS: ALANINE AMINOTRANSFERASE 25 U/L (9-52); ALBUMIN 2.3 g/dL (3.5-5.0); ALKALINE PHOSPHATASE 154 U/L (38-126); ANION GAP 7 (5-19); ASPARTATE AMINO TRANSFERASE 41 U/L (14-36); BILIRUBIN,DIRECT 0.5 mg/dL (0.0-0.4); BILIRUBIN,TOTAL 0.7 mg/dL (0.2-1.3); BLOOD UREA NITROGEN 4 mg/dL (7-20); CALCIUM 7.6 mg/dL (8.4-10.2); CARBON DIOXIDE 23 mmol/L (22-30); CHLORIDE 106 mmol/L (98-107); GLUCOSE 84 mg/dL (75-110); POTASSIUM 3.9 mmol/L (3.6-5.0); SODIUM 135.9 mmol/L (137-145); TOTAL PROTEIN 5.2 g/dL (6.3-8.2)
[2018-04-06] MEDS: MORPHINE SULFATE 10 MG/ML INJ IV PRN (20:34)
[2018-04-06] MEDS: NORMAL SALINE 1000 ML 1,000 ML IV PRN (20:35)
[2018-04-07] MEDS: LORAZEPAM INJ 2 MG/1 ML VIAL IV SCH ×3 (07:30→17:32)
[2018-04-07 09:23] LABS: ABSOLUTE BASOPHILS # (AUTO) 0.1 10^3/uL (0.0-0.2); ABSOLUTE EOSINOPHILS # (AUTO) 0.6 10^3/uL (0.0-0.6); ABSOLUTE LYMPHOCYTES (AUTO) 1.4 10^3/uL (0.5-4.7); ABSOLUTE MONOCYTES (AUTO) 0.9 10^3/uL (0.1-1.4); ABSOLUTE NEUT (AUTO) 8.9 10^3/uL (1.7-8.2); BASOPHILS % (AUTO) 0.5 % (0-2); EOSINOPHILS % (AUTO) 5.1 % (0-6); HEMATOCRIT 24.9 % (36.0-47.0); HEMOGLOBIN 8.5 g/dL (12.0-15.5); LYMPHOCYTES % (AUTO) 11.5 % (13-45); MEAN CORPUSCULAR HEMOGLOBIN 33.8 pg (27.0-33.4); MEAN CORPUSCULAR HGB CONC 34.3 g/dL (32.0-36.0); MEAN CORPUSCULAR VOLUME 99 fl (80-97); MONOCYTES % (AUTO) 7.6 % (3-13); PLATELET COUNT 250 10^3/uL (150-450); RED BLOOD COUNT 2.53 10^6/uL (3.72-5.28); RED CELL DISTRIBUTION WIDTH 22.4 % (11.5-14.0); SEGMENTED NEUTROPHILS % (AUTO) 75.3 % (42-78); TOTAL CELLS COUNTED % (AUTO) 100 %; WHITE BLOOD COUNT 11.9 10^3/uL (4.0-10.5)
[2018-04-07 09:29] LABS: ALANINE AMINOTRANSFERASE 28 U/L (9-52); ALBUMIN 2.2 g/dL (3.5-5.0); ALKALINE PHOSPHATASE 148 U/L (38-126); ANION GAP 7 (5-19); ASPARTATE AMINO TRANSFERASE 35 U/L (14-36); BILIRUBIN,DIRECT 0.5 mg/dL (0.0-0.4); BILIRUBIN,TOTAL 0.9 mg/dL (0.2-1.3); BLOOD UREA NITROGEN 4 mg/dL (7-20); CALCIUM 7.6 mg/dL (8.4-10.2); CARBON DIOXIDE 21 mmol/L (22-30); CHLORIDE 107 mmol/L (98-107); GLUCOSE 73 mg/dL (75-110); POTASSIUM 4.1 mmol/L (3.6-5.0); SODIUM 135.2 mmol/L (137-145); TOTAL PROTEIN 5.2 g/dL (6.3-8.2)
[2018-04-07] MEDS: MAGNESIUM OXIDE 400 MG TABLET PO SCH (10:18)
[2018-04-07] MEDS: THIAMINE HCL 100 MG TABLET PO SCH (10:18)
[2018-04-07] MEDS: CHOLECALCIFEROL (D3) 1,000 UNIT TABLET PO SCH (10:18)
[2018-04-07] MEDS: LANSOPRAZOLE 30 MG TAB.RAP.DR PO SCH ×2 (10:19→21:26)
[2018-04-07] MEDS: CLINDAMYCIN HCL 150 MG CAPSULE PO SCH ×3 (12:20→21:26)
[2018-04-07] MEDS: TRAMADOL HCL 50 MG TABLET PO PRN (17:49)
[2018-04-07] MEDS: NORMAL SALINE 1000 ML 1,000 ML IV PRN (17:49)
--- NOTE | 2018-04-07 22:25 | PDOC PROGRESS REPORT ---
Subjective Progress Note for:: 04/07/18 Subjective:: Patient was seen by the bedside, she was treated with lorazepam 2 mg IV every 6 hours on schedule prophylactically to prevent alcohol related withdrawal syndrome, the nurses said patient has been sleepy on the present regimen, dose to be reduced to 0.5 mg IV every 6 hours. She continues to manage the fracture conservatively also on antibiotic for the cellulitis of the breast Reason For Visit: MASTITIS Physical Exam Vital Signs: Temp Pulse Resp BP Pulse Ox 99.6 F 124 H 16 113/75 97 04/07/18 20:14 04/07/18 20:14 04/07/18 20:14 04/07/18 20:14 04/07/18 20:14 Intake & Output 04/06/18 04/07/18 04/08/18 06:59 06:59 06:59 Intake Total 887 1620 Output Total 900 1275 775 Balance -900 -388 845 Weight 82.8 kg 81.9 kg General appearance: PRESENT: no acute distress Eye exam: PRESENT: PERRLA Respiratory exam: PRESENT: clear to auscultation dawna Cardiovascular exam: PRESENT: +S1, +S2 GI/Abdominal exam: PRESENT: soft Neurological exam: PRESENT: alert Results Laboratory Results: 04/07/18 05:55 04/07/18 05:55 04/07/18 04/07/18 05:55 05:55 WBC 11.9 H RBC 2.53 L Hgb 8.5 L Hct 24.9 L MCV 99 H MCH 33.8 H MCHC 34.3 RDW 22.4 H Plt Count 250 Seg Neutrophils % 75.3 Lymphocytes % 11.5 L Monocytes % 7.6 Eosinophils % 5.1 Basophils % 0.5 Absolute Neutrophils 8.9 H Absolute Lymphocytes 1.4 Absolute Monocytes 0.9 Absolute Eosinophils 0.6 Absolute Basophils 0.1 Sodium 135.2 L Potassium 4.1 Chloride 107 Carbon Dioxide 21 L Anion Gap 7 BUN 4 L Creatinine 0.61 Est GFR ( Amer) > 60 Est GFR (Non-Af Amer) > 60 Glucose 73 L Calcium 7.6 L Total Bilirubin 0.9 AST 35 ALT 28 Alkaline Phosphatase 148 H Total Protein 5.2 L Albumin 2.2 L Impressions: Femur X-Ray 04/05/18 07:59 IMPRESSION: Large suprapatellar knee joint effusion. Proximal femoral, distal femoral, and patellar hardware without lucency worrisome for loosening or bony findings worrisome for acute femoral re- fracture Knee X-Ray 04/05/18 07:59 IMPRESSION: Minimal depression of the medial tibial plateau articular surface with subcortical lucency worrisome for medial tibial plateau fracture. Findings discussed with Dr. Meehan in the emergency room Bone Scan Nuclear Medicine 04/05/18 10:24 IMPRESSION: Increased uptake in a linear bandlike distribution along the medial tibial plateau right knee, correlates with subtle fracture seen on plain films 04/05/2018. Assessment & Plan - Diagnosis (1) Right medial tibial plateau fracture Qualifiers: Encounter type: initial encounter Fracture type: closed Qualified Code(s) : S82.131A - Displaced fracture of medial condyle of right tibia, initial encounter for closed fracture Is this a current diagnosis for this admission?: Yes (2) Acute mastitis of left breast Is this a current diagnosis for this admission?: Yes (3) Alcohol dependence Qualifiers: Substance use status: unspecified alcohol-induced disorder Qualified Code(s ): F10.29 - Alcohol dependence with unspecified alcohol-induced disorder Is this a current diagnosis for this admission?: Yes Plan: Reduce Lorazepam to 0.5 mg IV every 6 (4) Multiple falls Is this a current diagnosis for this admission?: Yes
[2018-04-07] MEDS ORDERED: LORAZEPAM INJ 2 MG/1 ML VIAL IV ONE (22:45)
[2018-04-08] MEDS: MORPHINE SULFATE 10 MG/ML INJ IV PRN (02:08)
[2018-04-08] MEDS: LORAZEPAM INJ 2 MG/1 ML VIAL IV SCH ×4 (03:50→23:03)
[2018-04-08] MEDS: TRAMADOL HCL 50 MG TABLET PO PRN ×2 (03:54→23:10)
[2018-04-08] MEDS: CLINDAMYCIN HCL 150 MG CAPSULE PO SCH ×3 (05:20→21:53)
[2018-04-08] MEDS: LANSOPRAZOLE 30 MG TAB.RAP.DR PO SCH ×2 (09:22→21:54)
[2018-04-08] MEDS: CHOLECALCIFEROL (D3) 1,000 UNIT TABLET PO SCH (09:22)
[2018-04-08] MEDS: MAGNESIUM OXIDE 400 MG TABLET PO SCH (09:22)
[2018-04-08] MEDS: THIAMINE HCL 100 MG TABLET PO SCH (09:22)
[2018-04-08] MEDS: NORMAL SALINE 1000 ML 1,000 ML IV PRN (14:22)
--- NOTE | 2018-04-08 21:06 | PDOC PROGRESS REPORT ---
Subjective Progress Note for:: 04/08/18 Subjective:: Patient was seen by the bedside, the lorazepam dose was reduced yesterday, she has increased agitation Reason For Visit: MASTITIS Physical Exam Vital Signs: Temp Pulse Resp BP Pulse Ox 100.2 F 119 H 14 114/72 95 04/08/18 20:03 04/08/18 20:03 04/08/18 20:03 04/08/18 20:03 04/08/18 20:03 Intake & Output 04/07/18 04/08/18 04/09/18 06:59 06:59 06:59 Intake Total 887 2570 1966 Output Total 1275 2875 1100 Balance -388 -305 866 Weight 81.9 kg 82.5 kg General appearance: PRESENT: no acute distress Eye exam: PRESENT: PERRLA Respiratory exam: PRESENT: clear to auscultation dawna Cardiovascular exam: PRESENT: +S1, +S2 GI/Abdominal exam: PRESENT: soft Neurological exam: PRESENT: alert Results Laboratory Results: 04/07/18 05:55 04/07/18 05:55 Impressions: Femur X-Ray 04/05/18 07:59 IMPRESSION: Large suprapatellar knee joint effusion. Proximal femoral, distal femoral, and patellar hardware without lucency worrisome for loosening or bony findings worrisome for acute femoral re- fracture Knee X-Ray 04/05/18 07:59 IMPRESSION: Minimal depression of the medial tibial plateau articular surface with subcortical lucency worrisome for medial tibial plateau fracture. Findings discussed with Dr. Meehan in the emergency room Bone Scan Nuclear Medicine 04/05/18 10:24 IMPRESSION: Increased uptake in a linear bandlike distribution along the medial tibial plateau right knee, correlates with subtle fracture seen on plain films 04/05/2018. Assessment & Plan - Diagnosis (1) Right medial tibial plateau fracture Qualifiers: Encounter type: initial encounter Fracture type: closed Qualified Code(s) : S82.131A - Displaced fracture of medial condyle of right tibia, initial encounter for closed fracture Is this a current diagnosis for this admission?: Yes (2) Acute mastitis of left breast Is this a current diagnosis for this admission?: Yes (3) Alcohol dependence Qualifiers: Substance use status: unspecified alcohol-induced disorder Qualified Code(s ): F10.29 - Alcohol dependence with unspecified alcohol-induced disorder Is this a current diagnosis for this admission?: Yes (4) Multiple falls Is this a current diagnosis for this admission?: Yes (5) COPD (chronic obstructive pulmonary disease) Qualifiers: COPD type: unspecified COPD Qualified Code(s): J44.9 - Chronic obstructive pulmonary disease, unspecified Is this a current diagnosis for this admission?: Yes
[2018-04-08] MEDS: LORAZEPAM 0.5 MG TABLET PO SCH (23:06)
[2018-04-09] MEDS: CLINDAMYCIN HCL 150 MG CAPSULE PO SCH ×3 (05:04→22:48)
[2018-04-09] MEDS: LORAZEPAM 0.5 MG TABLET PO SCH ×2 (05:04→11:18)
[2018-04-09] MEDS: TRAMADOL HCL 50 MG TABLET PO PRN ×2 (05:06→11:17)
[2018-04-09] MEDS: CHOLECALCIFEROL (D3) 1,000 UNIT TABLET PO SCH (09:32)
[2018-04-09] MEDS: MAGNESIUM OXIDE 400 MG TABLET PO SCH (09:32)
[2018-04-09] MEDS: THIAMINE HCL 100 MG TABLET PO SCH (09:32)
[2018-04-09] MEDS: LANSOPRAZOLE 30 MG TAB.RAP.DR PO SCH ×2 (09:32→22:49)
[2018-04-09] MEDS: NORMAL SALINE 1000 ML 1,000 ML IV PRN (11:18)
--- NOTE | 2018-04-09 15:20 | PDOC PROGRESS REPORT ---
Subjective Progress Note for:: 04/09/18 Subjective:: She was seen by the bedside, the nurse stated that she was hallucinating, increased lorazepam to 2 mg, the cellulitis of breast is improved. Reason For Visit: MASTITIS Physical Exam Vital Signs: Temp Pulse Resp BP Pulse Ox 98.5 F 106 H 16 115/74 100 04/09/18 12:00 04/09/18 12:00 04/09/18 12:00 04/09/18 12:00 04/09/18 12:00 Intake & Output 04/08/18 04/09/18 04/10/18 06:59 06:59 06:59 Intake Total 2570 2793 186 Output Total 2875 1950 Balance -305 843 186 Weight 82.5 kg 82.5 kg General appearance: PRESENT: no acute distress Eye exam: PRESENT: PERRLA Respiratory exam: PRESENT: clear to auscultation dawna Cardiovascular exam: PRESENT: +S1, +S2 GI/Abdominal exam: PRESENT: soft Neurological exam: PRESENT: alert Results Laboratory Results: 04/07/18 05:55 04/07/18 05:55 Impressions: Femur X-Ray 04/05/18 07:59 IMPRESSION: Large suprapatellar knee joint effusion. Proximal femoral, distal femoral, and patellar hardware without lucency worrisome for loosening or bony findings worrisome for acute femoral re- fracture Knee X-Ray 04/05/18 07:59 IMPRESSION: Minimal depression of the medial tibial plateau articular surface with subcortical lucency worrisome for medial tibial plateau fracture. Findings discussed with Dr. Meehan in the emergency room Bone Scan Nuclear Medicine 04/05/18 10:24 IMPRESSION: Increased uptake in a linear bandlike distribution along the medial tibial plateau right knee, correlates with subtle fracture seen on plain films 04/05/2018. Assessment & Plan - Diagnosis (1) Right medial tibial plateau fracture Qualifiers: Encounter type: initial encounter Fracture type: closed Qualified Code(s) : S82.131A - Displaced fracture of medial condyle of right tibia, initial encounter for closed fracture Is this a current diagnosis for this admission?: Yes (2) Acute mastitis of left breast Is this a current diagnosis for this admission?: Yes (3) Alcohol dependence Qualifiers: Substance use status: unspecified alcohol-induced disorder Qualified Code(s ): F10.29 - Alcohol dependence with unspecified alcohol-induced disorder Is this a current diagnosis for this admission?: Yes (4) Multiple falls Is this a current diagnosis for this admission?: Yes (5) COPD (chronic obstructive pulmonary disease) Qualifiers: COPD type: unspecified COPD Qualified Code(s): J44.9 - Chronic obstructive pulmonary disease, unspecified Is this a current diagnosis for this admission?: Yes - Plan Summary Plan Summary: Continue treatment with p.o. clindamycin, increase lorazepam dose
[2018-04-09 15:51] LABS: ABSOLUTE BASOPHILS # (AUTO) 0.1 10^3/uL (0.0-0.2); ABSOLUTE EOSINOPHILS # (AUTO) 0.6 10^3/uL (0.0-0.6); ABSOLUTE LYMPHOCYTES (AUTO) 1.4 10^3/uL (0.5-4.7); ABSOLUTE MONOCYTES (AUTO) 0.8 10^3/uL (0.1-1.4); ABSOLUTE NEUT (AUTO) 9.2 10^3/uL (1.7-8.2); EOSINOPHILS % (AUTO) 5.2 % (0-6); HEMATOCRIT 25.6 % (36.0-47.0); HEMOGLOBIN 8.5 g/dL (12.0-15.5); LYMPHOCYTES % (AUTO) 11.7 % (13-45); MEAN CORPUSCULAR HEMOGLOBIN 32.8 pg (27.0-33.4); MEAN CORPUSCULAR HGB CONC 33.4 g/dL (32.0-36.0); MEAN CORPUSCULAR VOLUME 98 fl (80-97); MONOCYTES % (AUTO) 6.6 % (3-13); PLATELET COUNT 282 10^3/uL (150-450); RED CELL DISTRIBUTION WIDTH 20.7 % (11.5-14.0); SEGMENTED NEUTROPHILS % (AUTO) 75.5 % (42-78); TOTAL CELLS COUNTED % (AUTO) 100 %; WHITE BLOOD COUNT 12.2 10^3/uL (4.0-10.5)
[2018-04-09 16:09] LABS: ALANINE AMINOTRANSFERASE 29 U/L (9-52); ALBUMIN 2.7 g/dL (3.5-5.0); ALKALINE PHOSPHATASE 177 U/L (38-126); ANION GAP 9 (5-19); ASPARTATE AMINO TRANSFERASE 37 U/L (14-36); BILIRUBIN,DIRECT 0.5 mg/dL (0.0-0.4); BILIRUBIN,TOTAL 0.9 mg/dL (0.2-1.3); BLOOD UREA NITROGEN 5 mg/dL (7-20); CALCIUM 8.1 mg/dL (8.4-10.2); CARBON DIOXIDE 23 mmol/L (22-30); CHLORIDE 102 mmol/L (98-107); GLUCOSE 83 mg/dL (75-110); POTASSIUM 4.5 mmol/L (3.6-5.0); SODIUM 133.9 mmol/L (137-145); TOTAL PROTEIN 6.2 g/dL (6.3-8.2)
[2018-04-09] MEDS: LORAZEPAM 1 MG TABLET PO SCH ×2 (17:08→23:11)
[2018-04-10] MEDS: TRAMADOL HCL 50 MG TABLET PO PRN ×3 (02:46→18:06)
[2018-04-10] MEDS: LORAZEPAM 1 MG TABLET PO SCH ×3 (06:33→18:07)
[2018-04-10] MEDS: CLINDAMYCIN HCL 150 MG CAPSULE PO SCH ×3 (06:33→22:47)
[2018-04-10 07:45] LABS: ABSOLUTE BASOPHILS # (AUTO) 0.1 10^3/uL (0.0-0.2); ABSOLUTE EOSINOPHILS # (AUTO) 0.8 10^3/uL (0.0-0.6); ABSOLUTE LYMPHOCYTES (AUTO) 1.5 10^3/uL (0.5-4.7); ABSOLUTE MONOCYTES (AUTO) 0.8 10^3/uL (0.1-1.4); ABSOLUTE NEUT (AUTO) 8.4 10^3/uL (1.7-8.2); BASOPHILS % (AUTO) 0.9 % (0-2); EOSINOPHILS % (AUTO) 6.6 % (0-6); HEMOGLOBIN 8.5 g/dL (12.0-15.5); LYMPHOCYTES % (AUTO) 13.1 % (13-45); MEAN CORPUSCULAR HEMOGLOBIN 33.6 pg (27.0-33.4); MEAN CORPUSCULAR HGB CONC 34.1 g/dL (32.0-36.0); MEAN CORPUSCULAR VOLUME 99 fl (80-97); MONOCYTES % (AUTO) 7.3 % (3-13); PLATELET COUNT 315 10^3/uL (150-450); RED BLOOD COUNT 2.54 10^6/uL (3.72-5.28); RED CELL DISTRIBUTION WIDTH 20.9 % (11.5-14.0); SEGMENTED NEUTROPHILS % (AUTO) 72.1 % (42-78); TOTAL CELLS COUNTED % (AUTO) 100 %; WHITE BLOOD COUNT 11.7 10^3/uL (4.0-10.5)
[2018-04-10] MEDS: LANSOPRAZOLE 30 MG TAB.RAP.DR PO SCH ×2 (09:08→22:47)
[2018-04-10] MEDS: THIAMINE HCL 100 MG TABLET PO SCH (09:08)
[2018-04-10] MEDS: MAGNESIUM OXIDE 400 MG TABLET PO SCH (09:08)
[2018-04-10 10:41] LABS: ALANINE AMINOTRANSFERASE 27 U/L (9-52); ALBUMIN 2.5 g/dL (3.5-5.0); ALKALINE PHOSPHATASE 161 U/L (38-126); ANION GAP 9 (5-19); ASPARTATE AMINO TRANSFERASE 37 U/L (14-36); BILIRUBIN,DIRECT 0.5 mg/dL (0.0-0.4); BILIRUBIN,TOTAL 0.9 mg/dL (0.2-1.3); BLOOD UREA NITROGEN 5 mg/dL (7-20); CALCIUM 8.3 mg/dL (8.4-10.2); CARBON DIOXIDE 21 mmol/L (22-30); CHLORIDE 102 mmol/L (98-107); GLUCOSE 74 mg/dL (75-110); POTASSIUM 4.7 mmol/L (3.6-5.0); SODIUM 131.8 mmol/L (137-145); TOTAL PROTEIN 5.3 g/dL (6.3-8.2)
[2018-04-10] MEDS: CHOLECALCIFEROL (D3) 1,000 UNIT TABLET PO SCH (13:35)
--- NOTE | 2018-04-10 14:38 | PDOC PROGRESS REPORT ---
Subjective Progress Note for:: 04/10/18 Subjective:: Patient is seen by the bedside, she cannot bear weight on the the right knee, she has a knee immobilizer in place Reason For Visit: MASTITIS Physical Exam Vital Signs: Temp Pulse Resp BP Pulse Ox 99.4 F 113 H 20 106/79 99 04/10/18 11:10 04/10/18 11:10 04/10/18 11:10 04/10/18 11:10 04/10/18 11:10 Intake & Output 04/09/18 04/10/18 04/11/18 06:59 06:59 06:59 Intake Total 2793 942 Output Total 1950 1350 Balance 843 -408 Weight 82.5 kg 79.2 kg General appearance: PRESENT: no acute distress Eye exam: PRESENT: PERRLA Respiratory exam: PRESENT: clear to auscultation dawna Cardiovascular exam: PRESENT: +S1, +S2 GI/Abdominal exam: PRESENT: soft Neurological exam: PRESENT: alert Results Laboratory Results: 04/10/18 07:24 04/10/18 09:43 04/09/18 04/09/18 04/10/18 15:28 15:28 07:24 WBC 12.2 H 11.7 H RBC 2.60 L 2.54 L Hgb 8.5 L 8.5 L Hct 25.6 L 25.0 L MCV 98 H 99 H MCH 32.8 33.6 H MCHC 33.4 34.1 RDW 20.7 H 20.9 H Plt Count 282 315 Seg Neutrophils % 75.5 72.1 Lymphocytes % 11.7 L 13.1 Monocytes % 6.6 7.3 Eosinophils % 5.2 6.6 H Basophils % 1.0 0.9 Absolute Neutrophils 9.2 H 8.4 H Absolute Lymphocytes 1.4 1.5 Absolute Monocytes 0.8 0.8 Absolute Eosinophils 0.6 0.8 H Absolute Basophils 0.1 0.1 Sodium 133.9 L Potassium 4.5 Chloride 102 Carbon Dioxide 23 Anion Gap 9 BUN 5 L Creatinine 0.65 Est GFR ( Amer) > 60 Est GFR (Non-Af Amer) > 60 Glucose 83 Calcium 8.1 L Total Bilirubin 0.9 AST 37 H ALT 29 Alkaline Phosphatase 177 H Total Protein 6.2 L Albumin 2.7 L 04/10/18 04/10/18 07:24 09:43 WBC RBC Hgb Hct MCV MCH MCHC RDW Plt Count Seg Neutrophils % Lymphocytes % Monocytes % Eosinophils % Basophils % Absolute Neutrophils Absolute Lymphocytes Absolute Monocytes Absolute Eosinophils Absolute Basophils Sodium Cancelled 131.8 L Potassium Cancelled 4.7 Chloride Cancelled 102 Carbon Dioxide Cancelled 21 L Anion Gap Cancelled 9 BUN Cancelled 5 L Creatinine Cancelled 0.67 Est GFR ( Amer) Cancelled > 60 Est GFR (Non-Af Amer) Cancelled > 60 Glucose Cancelled 74 L Calcium Cancelled 8.3 L Total Bilirubin Cancelled 0.9 AST Cancelled 37 H ALT Cancelled 27 Alkaline Phosphatase Cancelled 161 H Total Protein Cancelled 5.3 L Albumin Cancelled 2.5 L Impressions: Femur X-Ray 04/05/18 07:59 IMPRESSION: Large suprapatellar knee joint effusion. Proximal femoral, distal femoral, and patellar hardware without lucency worrisome for loosening or bony findings worrisome for acute femoral re- fracture Knee X-Ray 04/05/18 07:59 IMPRESSION: Minimal depression of the medial tibial plateau articular surface with subcortical lucency worrisome for medial tibial plateau fracture. Findings discussed with Dr. Meehan in the emergency room Bone Scan Nuclear Medicine 04/05/18 10:24 IMPRESSION: Increased uptake in a linear bandlike distribution along the medial tibial plateau right knee, correlates with subtle fracture seen on plain films 04/05/2018. Assessment & Plan - Diagnosis (1) Right medial tibial plateau fracture Qualifiers: Encounter type: initial encounter Fracture type: closed Qualified Code(s) : S82.131A - Displaced fracture of medial condyle of right tibia, initial encounter for closed fracture Is this a current diagnosis for this admission?: Yes (2) Acute mastitis of left breast Is this a current diagnosis for this admission?: Yes (3) Alcohol dependence Qualifiers: Substance use status: unspecified alcohol-induced disorder Qualified Code(s ): F10.29 - Alcohol dependence with unspecified alcohol-induced disorder Is this a current diagnosis for this admission?: Yes (4) Multiple falls Is this a current diagnosis for this admission?: Yes (5) COPD (chronic obstructive pulmonary disease) Qualifiers: COPD type: unspecified COPD Qualified Code(s): J44.9 - Chronic obstructive pulmonary disease, unspecified Is this a current diagnosis for this admission?: Yes
[2018-04-11] MEDS: LORAZEPAM 1 MG TABLET PO SCH ×4 (00:19→17:47)
[2018-04-11] MEDS: CLINDAMYCIN HCL 150 MG CAPSULE PO SCH ×3 (05:22→21:02)
[2018-04-11] MEDS: TRAMADOL HCL 50 MG TABLET PO PRN (05:22)
[2018-04-11] MEDS: RINGERS SOLUTION,LACTATED 1,000 ML IV PRN ×2 (09:39→20:19)
[2018-04-11] MEDS: THIAMINE HCL 100 MG TABLET PO SCH (09:39)
[2018-04-11] MEDS: CHOLECALCIFEROL (D3) 1,000 UNIT TABLET PO SCH (09:39)
[2018-04-11] MEDS: MAGNESIUM OXIDE 400 MG TABLET PO SCH (09:39)
[2018-04-11] MEDS: LANSOPRAZOLE 30 MG TAB.RAP.DR PO SCH ×2 (09:39→21:02)
[2018-04-11] MEDS: ACETAMINOPHEN 325 MG TABLET PO PRN (17:46)
--- NOTE | 2018-04-11 20:57 | PDOC PROGRESS REPORT ---
Subjective Progress Note for:: 04/11/18 Subjective:: Patient is seen by the bedside, she cannot bear weight on the the right knee, she has a knee immobilizer in place Reason For Visit: MASTITIS Physical Exam Vital Signs: Temp Pulse Resp BP Pulse Ox 99.9 F 113 H 20 105/72 97 04/11/18 15:23 04/11/18 15:23 04/11/18 15:23 04/11/18 15:23 04/11/18 15:23 Intake & Output 04/10/18 04/11/18 04/12/18 06:59 06:59 06:59 Intake Total 549 435 4795 Output Total 1350 1750 750 Balance -408 -1173 871 Weight 79.2 kg 79.4 kg General appearance: PRESENT: no acute distress Eye exam: PRESENT: PERRLA Cardiovascular exam: PRESENT: +S1, +S2 GI/Abdominal exam: PRESENT: soft Neurological exam: PRESENT: alert Results Laboratory Results: 04/10/18 07:24 04/10/18 09:43 Impressions: Femur X-Ray 04/05/18 07:59 IMPRESSION: Large suprapatellar knee joint effusion. Proximal femoral, distal femoral, and patellar hardware without lucency worrisome for loosening or bony findings worrisome for acute femoral re- fracture Knee X-Ray 04/05/18 07:59 IMPRESSION: Minimal depression of the medial tibial plateau articular surface with subcortical lucency worrisome for medial tibial plateau fracture. Findings discussed with Dr. Meehan in the emergency room Bone Scan Nuclear Medicine 04/05/18 10:24 IMPRESSION: Increased uptake in a linear bandlike distribution along the medial tibial plateau right knee, correlates with subtle fracture seen on plain films 04/05/2018. Assessment & Plan - Diagnosis (1) Right medial tibial plateau fracture Qualifiers: Encounter type: initial encounter Fracture type: closed Qualified Code(s) : S82.131A - Displaced fracture of medial condyle of right tibia, initial encounter for closed fracture Is this a current diagnosis for this admission?: Yes (2) Acute mastitis of left breast Is this a current diagnosis for this admission?: Yes (3) Alcohol dependence Qualifiers: Substance use status: unspecified alcohol-induced disorder Qualified Code(s ): F10.29 - Alcohol dependence with unspecified alcohol-induced disorder Is this a current diagnosis for this admission?: Yes (4) Multiple falls Is this a current diagnosis for this admission?: Yes (5) COPD (chronic obstructive pulmonary disease) Qualifiers: COPD type: unspecified COPD Qualified Code(s): J44.9 - Chronic obstructive pulmonary disease, unspecified Is this a current diagnosis for this admission?: Yes
[2018-04-12] MEDS: LORAZEPAM 1 MG TABLET PO SCH ×5 (00:44→23:17)
[2018-04-12] MEDS: CLINDAMYCIN HCL 150 MG CAPSULE PO SCH ×2 (05:28→14:48)
[2018-04-12] MEDS: RINGERS SOLUTION,LACTATED 1,000 ML IV PRN (07:15)
[2018-04-12] MEDS: ACETAMINOPHEN 325 MG TABLET PO PRN (07:58)
[2018-04-12] MEDS: CHOLECALCIFEROL (D3) 1,000 UNIT TABLET PO SCH (09:07)
[2018-04-12] MEDS: THIAMINE HCL 100 MG TABLET PO SCH (09:07)
[2018-04-12] MEDS: LANSOPRAZOLE 30 MG TAB.RAP.DR PO SCH ×2 (09:07→21:16)
[2018-04-12] MEDS: MAGNESIUM OXIDE 400 MG TABLET PO SCH (09:07)
--- NOTE | 2018-04-12 14:54 | PDOC DISCHARGE SUMMARY ---
General - Admit/Disc Date/PCP Admission Date/Primary Care Provider: 04/05/18 15:30 ABNER WILKINS MD Discharge Date: 04/12/18 - Discharge Diagnosis (1) Right medial tibial plateau fracture Is this a current diagnosis for this admission?: Yes (2) Acute mastitis of left breast Is this a current diagnosis for this admission?: Yes (3) Alcohol dependence Is this a current diagnosis for this admission?: Yes (4) Multiple falls Is this a current diagnosis for this admission?: Yes (5) COPD (chronic obstructive pulmonary disease) Is this a current diagnosis for this admission?: Yes - Additional Information Prescriptions: Tramadol HCl [Ultram 50 mg Tablet] 50 mg PO Q6HP PRN #40 tablet PRN Reason: Clindamycin HCl 300 mg PO Q8H #15 capsule Home Medications: Albuterol Sulfate [Albuterol Sulfate 2.5mg/3 mL] 3 ml IN RTTIDP PRN 04/05/18 Cholecalciferol (Vitamin D3) [Vitamin D3 1000 Unit Tablet] 1 tab PO DAILY Magnesium 250 mg PO DAILY 04/05/18 Pantoprazole Sodium [Protonix] 40 mg PO Q12 04/05/18 Thiamine Mononitrate (Vit B1) [Vitamin B-1] 100 mg PO DAILY 04/05/18 Clindamycin HCl 300 mg PO Q8H #15 capsule 04/12/18 Morphine Sulfate [Morphine 10 mg/ml Inj] 0.25 mg IV Q6HP PRN vial 04/12/18 Tramadol HCl [Ultram 50 mg Tablet] 50 mg PO Q6HP PRN #40 tablet 04/12/18 History of Present Illness History of Present Illness: MAAME SAENZ is a 52 year old female she was discharged about 3 days ago when she was admitted for the management of cellulitis of the left breast. She stated that her knee give way she felt and sustained injury to the right knee. She could not bear weight on the knee in the emergency room she was evaluated x- ray was done, it demonstrated medial tibia plateau fracture of the right knee she also had a bone scan done as well which correlates with the x-ray finding. She is not able to bear weight, with severe pain. History of alcohol abuse with alcohol related complications. She has a history of multiple falls, she recently had a fracture of the right wrist that was operated upon which ORIF. Hospital Course Hospital Course: Patient was admitted when she fell and sustained injury, of the tibial plateau, she was seen orthopedic, conservative approach was recommended, pain control was achieved with opioid therapy. She also have mastitis of the left breast this was treated with p.o. clindamycin. She will need outpatient physical therapy on the follow-up with the orthopedic. She has a history of alcohol abuse ,history of alcohol withdrawal syndrome, she was treated prophylactically with IV lorazepam to prevent alcohol withdrawal syndrome Physical Exam Vital Signs: Temp Pulse Resp BP Pulse Ox 98.5 F 110 H 16 109/75 98 04/12/18 12:00 04/12/18 12:00 04/12/18 12:00 04/12/18 12:00 04/12/18 12:00 Intake & Output 04/11/18 04/12/18 04/13/18 06:59 06:59 06:59 Intake Total 577 3021 Output Total 1750 2350 Balance -1173 671 Weight 79.4 kg 80.5 kg General appearance: PRESENT: no acute distress Eye exam: PRESENT: PERRLA Respiratory exam: PRESENT: clear to auscultation dawna Cardiovascular exam: PRESENT: +S1, +S2 GI/Abdominal exam: PRESENT: soft Neurological exam: PRESENT: alert Results Laboratory Results: 04/10/18 07:24 04/10/18 09:43 Impressions: Femur X-Ray 04/05/18 07:59 IMPRESSION: Large suprapatellar knee joint effusion. Proximal femoral, distal femoral, and patellar hardware without lucency worrisome for loosening or bony findings worrisome for acute femoral re- fracture Knee X-Ray 04/05/18 07:59 IMPRESSION: Minimal depression of the medial tibial plateau articular surface with subcortical lucency worrisome for medial tibial plateau fracture. Findings discussed with Dr. Meehan in the emergency room Bone Scan Nuclear Medicine 04/05/18 10:24 IMPRESSION: Increased uptake in a linear bandlike distribution along the medial tibial plateau right knee, correlates with subtle fracture seen on plain films 04/05/2018. Qualifiers - * PATIENT BEING DISCHARGED WITH ANY OF THE FOLLOWING DIAGNOSIS: No
[2018-04-13] MEDS: LORAZEPAM 1 MG TABLET PO SCH ×2 (05:16→11:01)
[2018-04-13] MEDS: MAGNESIUM OXIDE 400 MG TABLET PO SCH (10:58)
[2018-04-13] MEDS: LANSOPRAZOLE 30 MG TAB.RAP.DR PO SCH (11:01)
[2018-04-13] MEDS: THIAMINE HCL 100 MG TABLET PO SCH (11:01)
[2018-04-13] MEDS: CHOLECALCIFEROL (D3) 1,000 UNIT TABLET PO SCH (11:03)
[2018-04-13 14:14] VITALS: BP 131/82
== END 2018-04-13 13:29 | disposition home health service (06) | DRG 600 ==
LOC: ER 07:27 → EH 15:30 → 4S 22:51
PROVIDERS: ADMIT Internal Medicine; ATTEND Internal Medicine
DX: N61.0 Mastitis without abscess (principal); S82.131A Displaced fracture of medial condyle of right tibia, initial encounter for closed fracture; F10.20 Alcohol dependence, uncomplicated; Z91.81 History of falling; J44.9 Chronic obstructive pulmonary disease, unspecified; W19.XXXA Unspecified fall, initial encounter; Z86.718 Personal history of other venous thrombosis and embolism; Z85.72 Personal history of non-Hodgkin lymphomas; Z92.21 Personal history of antineoplastic chemotherapy; Z90.710 Acquired absence of both cervix and uterus; K74.60 Unspecified cirrhosis of liver; Z96.641 Presence of right artificial hip joint; F17.200 Nicotine dependence, unspecified, uncomplicated; S62.101D Fracture of unspecified carpal bone, right wrist, subsequent encounter for fracture with routine healing; Z98.51 Tubal ligation status; Z87.19 Personal history of other diseases of the digestive system
CPT/HCPCS: 36415; 51702; 78315; 80053; 81001; 82550; 83605; 85025; 99285; A9561; J1170; J2060; J2270; J7030; J7120; L1830; Q9969; S0119

== ENCOUNTER 2018-09-29 10:08 | Inpatient (IN) | payer MEDICAID ==
[2018-09-29] MEDS ORDERED: RINGERS SOLUTION,LACTATED 2,000 ML IV ONE (10:47)
--- NOTE | 2018-09-29 10:53 | ER Document Report ---
ED General - General Stated Complaint: CHEST PAIN Time Seen by Provider: 09/29/18 10:28 Primary Care Provider: ABNER WILKINS MD [Primary Care Provider] - Follow up as needed TRAVEL OUTSIDE OF THE [place] IN LAST 30 DAYS: No - HPI Notes: Patient is a 52-year-old female that presents to the emergency department for chief complaint of altered mental status. Patient presents from home by EMS. Family states over the last 3 days she has had functional decline. She is become more confused and less interactive. Patient has had a few episodes of nausea, vomiting, and diarrhea per family. Family is not currently at bedside which is limiting HPI. HPI was provided by EMS. Patient cannot tell me her name but will not answer any other questions. EMS did report she was at 78% on room air in the arrived at the house. She was on nonrebreather in route to the emergency room. Past Medical History: Alcoholism, COPD Past Surgical History: Reviewed in chart Social History: History of alcohol abuse Family History: Reviewed and noncontributory for presenting illness Allergies: Reviewed, see documented allergy list. REVIEW OF SYSTEMS: Unable to obtain because of acuity of condition PHYSICAL EXAMINATION: Vital signs reviewed, nursing noted reviewed. GENERAL: Somnolent, in no apparent distress HEAD: Atraumatic, normocephalic. EYES: Eyes appear normal, extraocular movements intact, sclera anicteric, conjunctiva are normal. ENT: nares patent, oropharynx clear without exudates. Dry mucous membranes. NECK: Normal range of motion, supple without lymphadenopathy LUNGS: Breath sounds wheezing to auscultation bilaterally, no tachypnea or accessory muscle use, no purse lip breathing or respiratory distress HEART: Tachycardic rate and regular rhythm without murmurs ABDOMEN: Soft, nontender. No rebound, guarding, or rigidity. No masses appreciated. EXTREMITIES: Nontender, good range of motion. bilateral pitting edema, symmetric. NEUROLOGICAL: GCS 13. moves all extremities spontaneously Motor and sensory grossly intact on exam. SKIN: Warm, Dry, normal turgor, no rashes or lesions noted on exposed skin - Related Data Allergies/Adverse Reactions: No Known Allergies Allergy (Verified 04/05/18 07:38) Past Medical History - Social History Smoking Status: Unknown if Ever Smoked Family History: Reviewed & Not Pertinent - Past Medical History Cardiac Medical History: Reports: Hx DVT Pulmonary Medical History: Reports: Hx COPD, Hx Pneumonia, Hx Intubation, Hx Respiratory Failure Denies: Hx Tuberculosis Neurological Medical History: Denies: Hx Cerebrovascular Accident Renal/ Medical History: Denies: Hx Peritoneal Dialysis Malignancy Medical History: Reports: Hx Lymphoma - History of non-Hodgkin's lymphoma diagnosed 13 years ago. Had limited chem GI Medical History: Reports: Hx Cirrhosis Psychiatric Medical History: Denies: Hx Depression Past Surgical History: Reports: Hx Section, Hx Hysterectomy, Hx Orthopedic Surgery - Left hip replacement, right knee, Hx Tonsillectomy, Hx Tubal Ligation. Denies: Hx Pacemaker - Immunizations Hx Diphtheria, Pertussis, Tetanus Vaccination: Yes Physical Exam - Vital signs Vitals: Temp 98.8 F 09/29/18 10:08 Course - Re-evaluation Re-evalutation: 09/29/18 10:53 Vitals reviewed. Nursing notes reviewed. Patient was 78% per EMS however in the emergency room she is 100% on room air and not requiring oxygen. She is in no acute respiratory distress. She does have some mild wheezing bilaterally but no increased work of breathing. Patient is hypotensive and tachycardic consistent with sepsis. Chart review shows history of septic shock in the past. Patient was difficult to obtain IV on therefore I used ultrasound guidance to place to proximal peripheral IVs. Patient was started on aggressive IV hydration for likely septic shock. She was also started on IV antibiotics for broad-spectrum coverage. 09/29/18 12:49 Patient's lab work is consistent with septic shock. She has a lactate greater than 5. She has a leukocytosis greater than 18. Urinalysis is positive for infection. Patient has received IV Rocephin. After 2 L normal saline bolus her blood pressure has improved. Current blood pressure 105/84. Heart rate 108. Patient is awake but still oriented only to person. I discussed her care with Dr. Wilkins who has accepted admission to the ICU for further management. Patient's family in agreement with plan of care. Laboratory 09/29/18 09/29/18 09/29/18 10:44 10:44 10:44 WBC 18.7 H RBC 1.81 L Hgb 7.4 L Hct 21.4 L MCV 118 H MCH 41.0 H MCHC 34.6 RDW 20.3 H Plt Count 455 H Seg Neutrophils % 83.6 H Lymphocytes % 8.4 L Monocytes % 7.5 Eosinophils % 0.2 Basophils % 0.3 Absolute Neutrophils 15.7 H Absolute Lymphocytes 1.6 Absolute Monocytes 1.4 Absolute Eosinophils 0.0 Absolute Basophils 0.0 Platelet Comment INCREASED Polychromasia 1+ Poikilocytosis 1+ Anisocytosis 3+ Macrocytosis 3+ Target Cells 2+ Tear Drop Cells SLIGHT Ovalocytes SLIGHT Gómez Cells 1+ Schistocytes SLIGHT PT Cancelled INR Cancelled Sodium Cancelled Potassium Cancelled Chloride Cancelled Carbon Dioxide Cancelled Anion Gap Cancelled BUN Cancelled Creatinine Cancelled Est GFR ( Amer) Cancelled Est GFR (Non-Af Amer) Cancelled Glucose Cancelled Lactic Acid Calcium Cancelled Total Bilirubin Cancelled Direct Bilirubin Cancelled Neonat Total Bilirubin Cancelled Neonat Direct Bilirubin Cancelled Neonat Indirect Bili Cancelled AST Cancelled ALT Cancelled Alkaline Phosphatase Cancelled Ammonia Creatine Kinase Cancelled Troponin I Total Protein Cancelled Albumin Cancelled Urine Color Urine Appearance Urine pH Ur Specific [place] Urine Protein Urine Glucose (UA) Urine Ketones Urine Blood Urine Nitrite Urine Bilirubin Urine Urobilinogen Ur Leukocyte Esterase Urine WBC (Auto) Urine RBC (Auto) U Hyaline Cast (Auto) Urine Bacteria (Auto) Urine WBC Clumps Squamous Epi Cells Auto U Non-Squamous Epis Auto Urine Mucus (Auto) Urine Ascorbic Acid Urine Opiates Screen Urine Methadone Screen Ur Barbiturates Screen Ur Phencyclidine Scrn Ur Amphetamines Screen U Benzodiazepines Scrn Urine Cocaine Screen U Marijuana (THC) Screen Serum Alcohol Cancelled 09/29/18 09/29/18 09/29/18 10:44 10:44 10:44 WBC RBC Hgb Hct MCV MCH MCHC RDW Plt Count Seg Neutrophils % Lymphocytes % Monocytes % Eosinophils % Basophils % Absolute Neutrophils Absolute Lymphocytes Absolute Monocytes Absolute Eosinophils Absolute Basophils Platelet Comment Polychromasia Poikilocytosis Anisocytosis Macrocytosis Target Cells Tear Drop Cells Ovalocytes [place] Cells Schistocytes PT INR Sodium Potassium Chloride Carbon Dioxide Anion Gap BUN Creatinine Est GFR ( Amer) Est GFR (Non-Af Amer) Glucose Lactic Acid 5.1 H Calcium Total Bilirubin Direct Bilirubin Neonat Total Bilirubin Neonat Direct Bilirubin Neonat Indirect Bili AST ALT Alkaline Phosphatase Ammonia Cancelled Creatine Kinase Troponin I Cancelled Total Protein Albumin Urine Color Urine Appearance Urine pH Ur Specific [place] Urine Protein Urine Glucose (UA) Urine Ketones Urine Blood Urine Nitrite Urine Bilirubin Urine Urobilinogen Ur Leukocyte Esterase Urine WBC (Auto) Urine RBC (Auto) U Hyaline Cast (Auto) Urine Bacteria (Auto) Urine WBC Clumps Squamous Epi Cells Auto U Non-Squamous Epis Auto Urine Mucus (Auto) Urine Ascorbic Acid Urine Opiates Screen Urine Methadone Screen Ur Barbiturates Screen Ur Phencyclidine Scrn Ur Amphetamines Screen U Benzodiazepines Scrn Urine Cocaine Screen U Marijuana (THC) Screen Serum Alcohol 09/29/18 09/29/18 12:02 12:02 WBC RBC Hgb Hct MCV MCH MCHC RDW Plt Count Seg Neutrophils % Lymphocytes % Monocytes % Eosinophils % Basophils % Absolute Neutrophils Absolute Lymphocytes Absolute Monocytes Absolute Eosinophils Absolute Basophils Platelet Comment Polychromasia Poikilocytosis Anisocytosis Macrocytosis Target Cells Tear Drop Cells Ovalocytes Gómez Cells Schistocytes PT INR Sodium Potassium Chloride Carbon Dioxide Anion Gap BUN Creatinine Est GFR ( Amer) Est GFR (Non-Af Amer) Glucose Lactic Acid Calcium Total Bilirubin Direct Bilirubin Neonat Total Bilirubin Neonat Direct Bilirubin Neonat Indirect Bili AST ALT Alkaline Phosphatase Ammonia Creatine Kinase Troponin I Total Protein Albumin Urine Color YELLOW Urine Appearance TURBID Urine pH 6.0 Ur Specific [place] 1.017 Urine Protein 100 H Urine Glucose (UA) NEGATIVE Urine Ketones NEGATIVE Urine Blood LARGE H Urine Nitrite NEGATIVE Urine Bilirubin SMALL H Urine Urobilinogen 4.0 H Ur Leukocyte Esterase MODERATE H Urine WBC (Auto) >182 Urine RBC (Auto) 12 U Hyaline Cast (Auto) 25 Urine Bacteria (Auto) 3+ Urine WBC Clumps MANY Squamous Epi Cells Auto 5 U Non-Squamous Epis Auto 3 Urine Mucus (Auto) OCC Urine Ascorbic Acid NEGATIVE Urine Opiates Screen NEGATIVE Urine Methadone Screen NEGATIVE Ur Barbiturates Screen NEGATIVE Ur Phencyclidine Scrn NEGATIVE Ur Amphetamines Screen NEGATIVE U Benzodiazepines Scrn NEGATIVE Urine Cocaine Screen NEGATIVE U Marijuana (THC) Screen NEGATIVE Serum Alcohol Chest X-Ray 09/29/18 10:11 IMPRESSION: NO ACUTE RADIOGRAPHIC FINDING IN THE CHEST. - Vital Signs Vital signs: Temp Pulse Resp BP Pulse Ox 98.8 F 21 H 93/77 L 100 09/29/18 10:08 09/29/18 12:32 09/29/18 12:32 09/29/18 11:45 - Laboratory Result Diagrams: 09/29/18 10:44 09/29/18 10:44 Laboratory results interpreted by me: 09/29/18 09/29/18 09/29/18 10:44 10:44 12:02 WBC 18.7 H RBC 1.81 L Hgb 7.4 L Hct 21.4 L MCV 118 H MCH 41.0 H RDW 20.3 H Plt Count 455 H Seg Neutrophils % 83.6 H Lymphocytes % 8.4 L Absolute Neutrophils 15.7 H Lactic Acid 5.1 H Urine Protein 100 H Urine Blood LARGE H Urine Bilirubin SMALL H Urine Urobilinogen 4.0 H Ur Leukocyte Esterase MODERATE H Critical Care Note - Critical Care Note Total time excluding time spent on procedures (mins): 40 Comments: 40 Critical care time spent obtaining history from patient or surrogate, discussions with consultants, development of treatment plan with patient or surrogate, evaluation of patient's response to treatment, examination of patient, ordering and performing treatments and interventions, ordering and review of laboratory studies, re-evaluation of patient's condition, ordering and review of radiographic studies and review of old charts Discharge - Discharge Clinical Impression: Septic shock, Lactic acidosis, Acute delirium Urinary tract infection Qualifiers: Urinary tract infection type: site unspecified Hematuria presence: with hematuria Qualified Code(s): N39.0 - Urinary tract infection, site not specified; R31.9 - Hematuria, unspecified Condition: Stable Disposition: ADMITTED INPATIENT Admitting Provider: [facility] Unit Admitted: ICU Referrals: ABNER WILKINS MD [Primary Care Provider] - Follow up as needed
--- NOTE | 2018-09-29 11:03 | RADIOLOGY REPORT (SQ) ---
EXAM DESCRIPTION: CHEST SINGLE VIEW COMPLETED DATE/TIME: 09/29/2018 10:40 am REASON FOR STUDY: mp sepsis protocol COMPARISON: Chest films 04/19/2016 01/09/2018, 03/30/2018 CT angio chest 01/09/2018 EXAM PARAMETERS: NUMBER OF VIEWS: One view. TECHNIQUE: Single frontal radiographic view of the chest acquired. RADIATION DOSE: NA LIMITATIONS: None. FINDINGS: LUNGS AND PLEURA: Chronic volume loss and pleuroparenchymal scarring at the apex right hem ithorax, unchanged since 2015. No acute infiltrates. No pleural effusion or pneumothorax MEDIASTINUM AND HILAR STRUCTURES: No masses. Contour normal. Surgical clips right hilum post upper lobectomy HEART AND VASCULAR STRUCTURES: Heart normal in size. Normal vasculature. BONES: Old right thoracotomy defect HARDWARE: None in the chest. OTHER: No other significant finding. IMPRESSION: NO ACUTE RADIOGRAPHIC FINDING IN THE CHEST. TECHNICAL DOCUMENTATION: JOB ID: [id number] [employer]- All Rights Reserved Reading location - IP/workstation name: [email or web address]
[2018-09-29 11:09] LABS: ABSOLUTE LYMPHOCYTES (AUTO) 1.6 10^3/uL (0.5-4.7); ABSOLUTE MONOCYTES (AUTO) 1.4 10^3/uL (0.1-1.4); ABSOLUTE NEUT (AUTO) 15.7 10^3/uL (1.7-8.2); BASOPHILS % (AUTO) 0.3 % (0-2); EOSINOPHILS % (AUTO) 0.2 % (0-6); HEMATOCRIT 21.4 % (36.0-47.0); LYMPHOCYTES % (AUTO) 8.4 % (13-45); MEAN CORPUSCULAR HGB CONC 34.6 g/dL (32.0-36.0); MEAN CORPUSCULAR VOLUME 118 fl (80-97); MONOCYTES % (AUTO) 7.5 % (3-13); PLATELET COUNT 455 10^3/uL (150-450); RED BLOOD COUNT 1.81 10^6/uL (3.72-5.28); RED CELL DISTRIBUTION WIDTH 20.3 % (11.5-14.0); SEGMENTED NEUTROPHILS % (AUTO) 83.6 % (42-78); TOTAL CELLS COUNTED % (AUTO) 100 %; WHITE BLOOD COUNT 18.7 10^3/uL (4.0-10.5)
[2018-09-29] MEDS ORDERED: CEFTRIAXONE INJ 1000 MG VIAL IV ONE (11:18)
[2018-09-29 11:32] LABS: HEMOGLOBIN 7.4 g/dL (12.0-15.5)
[2018-09-29 11:35] LABS: POLYCHROMASIA 1+
[2018-09-29 11:36] LABS: ANISOCYTOSIS 3+; BURR CELLS 1+; OVALOCYTES SLIGHT; PLATELET COMMENT INCREASED; POIKILOCYTOSIS 1+; SCHISTOCYTES SLIGHT; TARGET CELLS 2+; TEAR DROP CELLS SLIGHT
[2018-09-29 12:27] LABS: APPEARANCE,URINE TURBID; BILIRUBIN,URINE SMALL (NEGATIVE); GLUCOSE, URINE NEGATIVE (NEGATIVE); KETONES,URINE NEGATIVE (NEGATIVE); LEUKOCYTE ESTERASE,URINE MODERATE (NEGATIVE); NITRITE,URINE NEGATIVE (NEGATIVE); PROTEIN,URINE 100 mg/dL (NEGATIVE); URINE SPECIFIC GRAVITY 1.017
[2018-09-29 12:30] LABS: COLOR,URINE YELLOW
[2018-09-29 12:45] LABS: URINE AMPHETAMINES SCREEN NEGATIVE; URINE BARBITURATES SCREEN NEGATIVE; URINE BENZODIAZEPINES SCREEN NEGATIVE; URINE COCAINE SCREEN NEGATIVE; URINE MARIJUANA (THC) SCREEN NEGATIVE; URINE METHADONE SCREEN NEGATIVE; URINE PHENCYCLIDINE SCREEN NEGATIVE
[2018-09-29 13:21] LABS: PROTHROMBIN TIME 18.9 SEC (11.4-15.4)
[2018-09-29 13:22] LABS: ARTERIAL BLOOD H2CO3 1.01 mmol/L (1.05-1.35); ARTERIAL BLOOD HCO3 21.2 mmol/L (20-24); ARTERIAL BLOOD O2 SATURATION 96.5 % (94-98); ARTERIAL BLOOD PCO2 33.6 mmHg (35-45); ARTERIAL BLOOD PH 7.42 (7.35-7.45); ARTERIAL BLOOD PO2 83.6 mmHg (80-100); ARTERIAL BLOOD TOTAL CO2 22.2 mmol/L (21-25)
[2018-09-29 13:28] LABS: ARTERIAL BLOOD FIO2 21%
[2018-09-29 13:35] LABS: ALANINE AMINOTRANSFERASE 28 U/L (9-52); ALBUMIN 2.9 g/dL (3.5-5.0); ALKALINE PHOSPHATASE 128 U/L (38-126); ANION GAP 16 (5-19); ASPARTATE AMINO TRANSFERASE 72 U/L (14-36); BILIRUBIN,DIRECT 3.1 mg/dL (0.0-0.4); BILIRUBIN,TOTAL 3.9 mg/dL (0.2-1.3); BLOOD UREA NITROGEN 21 mg/dL (7-20); CALCIUM 9.1 mg/dL (8.4-10.2); CARBON DIOXIDE 22 mmol/L (22-30); CHLORIDE 106 mmol/L (98-107); CREATINE KINASE 77 U/L (30-135); GLUCOSE 118 mg/dL (75-110); SODIUM 143.8 mmol/L (137-145); TOTAL PROTEIN 6.7 g/dL (6.3-8.2)
[2018-09-29 13:38] LABS: ALCOHOL < 10 mg/dL (NONE DETECTED)
[2018-09-29 13:40] LABS: POTASSIUM 2.4 mmol/L (3.6-5.0)
[2018-09-29] MEDS ORDERED: POTASSIUM CHLORIDE 20 MEQ/15 ML UDCUP PO ONE (13:42)
[2018-09-29] MEDS: ENOXAPARIN SODIUM INJ 40 MG/0.4 ML DISP.SYRIN SUBCUT SCH (15:34)
[2018-09-29] MEDS: NORMAL SALINE 1000 ML 1,000 ML IV PRN ×2 (15:35→20:44)
[2018-09-29 16:02] LABS: PROTHROMBIN TIME 18.9 SEC (11.4-15.4)
[2018-09-29 16:10] LABS: LIPASE 210.1 U/L (23-300); PHOSPHORUS 2.9 mg/dL (2.5-4.5)
[2018-09-29 16:23] LABS: CREATINE KINASE MB 2.69 ng/mL (<4.55); TROPONIN I 0.028 ng/mL
[2018-09-29 16:27] LABS: FREE T4 (FREE THYROXINE) 1.86 ng/dL (0.78-2.19)
[2018-09-29 16:41] LABS: THYROID STIMULATING HORMONE 0.62 uIU/mL (0.47-4.68)
[2018-09-29 19:27] LABS: ALANINE AMINOTRANSFERASE 20 U/L (9-52); ALBUMIN 2.7 g/dL (3.5-5.0); ALKALINE PHOSPHATASE 107 U/L (38-126); ANION GAP 15 (5-19); ASPARTATE AMINO TRANSFERASE 72 U/L (14-36); BILIRUBIN,DIRECT 3.2 mg/dL (0.0-0.4); BILIRUBIN,TOTAL 3.7 mg/dL (0.2-1.3); BLOOD UREA NITROGEN 20 mg/dL (7-20); CARBON DIOXIDE 22 mmol/L (22-30); CHLORIDE 107 mmol/L (98-107); GLUCOSE 89 mg/dL (75-110); SODIUM 143.8 mmol/L (137-145); TOTAL PROTEIN 6.2 g/dL (6.3-8.2)
[2018-09-29 19:39] LABS: CREATINE KINASE MB 3.45 ng/mL (<4.55); TROPONIN I 0.023 ng/mL
[2018-09-29 19:54] LABS: POTASSIUM 2.3 mmol/L (3.6-5.0)
--- NOTE | 2018-09-29 20:48 | PDOC H&P ---
History of Present Illness Admission Date/PCP: 09/29/18 13:24 ABNER WILKINS MD History of Present Illness: MAAME SAENZ is a 52 year old female, Patient was brought to the emergency room by EMS For evaluation of altered mental status, family stated that in the last 3 days patient function had declined, she was more confused and less interactive she also had episode of vomiting and diarrhea per family patient is an alcoholic, history taking was a challenge. When she arrived in the emergency room the blood pressure recorded was low, there was severe leukocytosis with a left shift, she was diagnosed with septic shock in the emergency room there was lactic acidosis, encephalopathy, acute kidney injury, the urinalysis was grossly abnormal suggesting that the source of the sepsis is in the urine. She has a history of alcohol abuse and alcoholism, history of hospitalization in the past from pneumonia, septic shock requiring mechanical ventilation Past Medical History Cardiac Medical History: Reports: DVT Pulmonary Medical History: Reports: Chronic Obstructive Pulmonary Disease (COPD), Intubation, Pneumonia, Respiratory Failure Malignancy Medical History: Reports: Lymphoma - History of non-Hodgkin's lymphoma diagnosed 13 years ago. Had limited chem GI Medical History: Reports: Cirrhosis Hematology: Reports: Anemia Past Surgical History Past Surgical History: Reports: Section, Hysterectomy, Orthopedic Surgery - Left hip replacement, right knee, Tonsillectomy, Tubal Ligation Social History Smoking Status: Current Every Day Smoker Frequency of Alcohol Use: Heavy Hx Recreational Drug Use: No Drugs: Cocaine Hx Prescription Drug Abuse: No - Advance Directive Resuscitation Status: Full Code Family History Family History: Reviewed & Not Pertinent Parental Family History Reviewed: Yes Children Family History Reviewed: Yes Sibling(s) Family History Reviewed.: Yes Medication/Allergy Home Medications: No Home Medications 09/29/18 Allergies/Adverse Reactions: No Known Allergies Allergy (Verified 04/05/18 07:38) Review of Systems ROS unobtainable: Due to mental status Physical Exam Vital Signs: Temp Pulse Resp BP Pulse Ox 98.8 F 17 86/61 L 96 09/29/18 10:08 09/29/18 19:16 09/29/18 19:16 09/29/18 19:16 Intake & Output 09/28/18 09/29/18 09/30/18 06:59 06:59 06:59 Intake Total 3000 Balance 3000 Weight 69.5 kg General appearance: PRESENT: no acute distress Eye exam: PRESENT: PERRLA Respiratory exam: PRESENT: clear to auscultation dawna Cardiovascular exam: PRESENT: +S1, +S2 GI/Abdominal exam: PRESENT: soft Neurological exam: PRESENT: altered Results Laboratory Results: 09/29/18 10:44 09/29/18 18:59 09/29/18 09/29/18 09/29/18 10:44 10:44 10:44 WBC 18.7 H RBC 1.81 L Hgb 7.4 L Hct 21.4 L MCV 118 H MCH 41.0 H MCHC 34.6 RDW 20.3 H Plt Count 455 H Seg Neutrophils % 83.6 H Lymphocytes % 8.4 L Monocytes % 7.5 Eosinophils % 0.2 Basophils % 0.3 Absolute Neutrophils 15.7 H Absolute Lymphocytes 1.6 Absolute Monocytes 1.4 Absolute Eosinophils 0.0 Absolute Basophils 0.0 Carbonic Acid HCO3/H2CO3 Ratio ABG pH ABG pCO2 ABG pO2 ABG HCO3 ABG O2 Saturation ABG Base Excess FiO2 Sodium Cancelled Potassium Cancelled Chloride Cancelled Carbon Dioxide Cancelled Anion Gap Cancelled BUN Cancelled Creatinine Cancelled Est GFR ( Amer) Cancelled Est GFR (Non-Af Amer) Cancelled Glucose Cancelled Lactic Acid 5.1 H Calcium Cancelled Phosphorus Magnesium Total Bilirubin Cancelled AST Cancelled ALT Cancelled Alkaline Phosphatase Cancelled Ammonia Total Protein Cancelled Albumin Cancelled Amylase Lipase TSH Free T4 Urine Color Urine Appearance Urine pH Ur Specific [place] Urine Protein Urine Glucose (UA) Urine Ketones Urine Blood Urine Nitrite Ur Leukocyte Esterase Urine WBC (Auto) Urine RBC (Auto) 09/29/18 09/29/18 09/29/18 10:44 12:02 12:59 WBC RBC Hgb Hct MCV MCH MCHC RDW Plt Count Seg Neutrophils % Lymphocytes % Monocytes % Eosinophils % Basophils % Absolute Neutrophils Absolute Lymphocytes Absolute Monocytes Absolute Eosinophils Absolute Basophils Carbonic Acid HCO3/H2CO3 Ratio ABG pH ABG pCO2 ABG pO2 ABG HCO3 ABG O2 Saturation ABG Base Excess FiO2 Sodium Potassium Chloride Carbon Dioxide Anion Gap BUN Creatinine Est GFR ( Amer) Est GFR (Non-Af Amer) Glucose Lactic Acid Calcium Phosphorus Magnesium Total Bilirubin AST ALT Alkaline Phosphatase Ammonia Cancelled 119.1 H Total Protein Albumin Amylase Lipase TSH Free T4 Urine Color YELLOW Urine Appearance TURBID Urine pH 6.0 Ur Specific [place] 1.017 Urine Protein 100 H Urine Glucose (UA) NEGATIVE Urine Ketones NEGATIVE Urine Blood LARGE H Urine Nitrite NEGATIVE Ur Leukocyte Esterase MODERATE H Urine WBC (Auto) >182 Urine RBC (Auto) 12 09/29/18 09/29/18 09/29/18 12:59 13:00 15:30 WBC RBC Hgb Hct MCV MCH MCHC RDW Plt Count Seg Neutrophils % Lymphocytes % Monocytes % Eosinophils % Basophils % Absolute Neutrophils Absolute Lymphocytes Absolute Monocytes Absolute Eosinophils Absolute Basophils Carbonic Acid 1.01 L HCO3/H2CO3 Ratio 20:1 ABG pH 7.42 ABG pCO2 33.6 L ABG pO2 83.6 ABG HCO3 21.2 ABG O2 Saturation 96.5 ABG Base Excess -3.0 FiO2 21% Sodium 143.8 Potassium 2.4 L* Chloride 106 Carbon Dioxide 22 Anion Gap 16 BUN 21 H Creatinine 2.07 H Est GFR ( Amer) 30 L Est GFR (Non-Af Amer) 25 L Glucose 118 H Lactic Acid 6.3 H Calcium 9.1 Phosphorus Magnesium Total Bilirubin 3.9 H AST 72 H ALT 28 Alkaline Phosphatase 128 H Ammonia Total Protein 6.7 Albumin 2.9 L Amylase Lipase TSH Free T4 Urine Color Urine Appearance Urine pH Ur Specific [place] Urine Protein Urine Glucose (UA) Urine Ketones Urine Blood Urine Nitrite Ur Leukocyte Esterase Urine WBC (Auto) Urine RBC (Auto) 09/29/18 09/29/18 09/29/18 15:30 15:30 15:30 WBC RBC Hgb Hct MCV MCH MCHC RDW Plt Count Seg Neutrophils % Lymphocytes % Monocytes % Eosinophils % Basophils % Absolute Neutrophils Absolute Lymphocytes Absolute Monocytes Absolute Eosinophils Absolute Basophils Carbonic Acid HCO3/H2CO3 Ratio ABG pH ABG pCO2 ABG pO2 ABG HCO3 ABG O2 Saturation ABG Base Excess FiO2 Sodium Potassium Chloride Carbon Dioxide Anion Gap BUN Creatinine Est GFR ( Amer) Est GFR (Non-Af Amer) Glucose Lactic Acid Calcium Phosphorus 2.9 Magnesium 0.7 L* Total Bilirubin AST ALT Alkaline Phosphatase Ammonia 98.8 H Total Protein Albumin Amylase 49 Lipase 210.1 TSH 0.62 Free T4 1.86 Urine Color Urine Appearance Urine pH Ur Specific [place] Urine Protein Urine Glucose (UA) Urine Ketones Urine Blood Urine Nitrite Ur Leukocyte Esterase Urine WBC (Auto) Urine RBC (Auto) 09/29/18 18:59 WBC RBC Hgb Hct MCV MCH MCHC RDW Plt Count Seg Neutrophils % Lymphocytes % Monocytes % Eosinophils % Basophils % Absolute Neutrophils Absolute Lymphocytes Absolute Monocytes Absolute Eosinophils Absolute Basophils Carbonic Acid HCO3/H2CO3 Ratio ABG pH ABG pCO2 ABG pO2 ABG HCO3 ABG O2 Saturation ABG Base Excess FiO2 Sodium 143.8 Potassium 2.3 L* Chloride 107 Carbon Dioxide 22 Anion Gap 15 BUN 20 Creatinine 1.79 H Est GFR ( Amer) 36 L Est GFR (Non-Af Amer) 30 L Glucose 89 Lactic Acid Calcium 9.0 Phosphorus Magnesium Total Bilirubin 3.7 H AST 72 H ALT 20 Alkaline Phosphatase 107 Ammonia Total Protein 6.2 L Albumin 2.7 L Amylase Lipase TSH Free T4 Urine Color Urine Appearance Urine pH Ur Specific [place] Urine Protein Urine Glucose (UA) Urine Ketones Urine Blood Urine Nitrite Ur Leukocyte Esterase Urine WBC (Auto) Urine RBC (Auto) 09/29/18 09/29/18 09/29/18 10:44 10:44 12:59 Creatine Kinase Cancelled CK-MB (CK-2) Troponin I Cancelled 0.028 09/29/18 09/29/18 09/29/18 12:59 15:30 15:30 Creatine Kinase 77 161 H CK-MB (CK-2) 2.69 Troponin I 0.028 09/29/18 09/29/18 18:59 18:59 Creatine Kinase 201 H CK-MB (CK-2) 3.45 Troponin I 0.023 Impressions: Chest X-Ray 09/29/18 10:11 IMPRESSION: NO ACUTE RADIOGRAPHIC FINDING IN THE CHEST. Assessment & Plan - Diagnosis (1) Septic shock Is this a current diagnosis for this admission?: Yes Plan: Patient is not septic shock, she will be treated with IV fluid at 30 cc/kg initially for fluid resuscitation, she is presently not requiring IV pressors (2) UTI (urinary tract infection) Qualifiers: Urinary tract infection type: site unspecified Hematuria presence: with hematuria Qualified Code(s): N39.0 - Urinary tract infection, site not specified; R31.9 - Hematuria, unspecified Is this a current diagnosis for this admission?: Yes Plan: She has UTI start antibiotic Rocephin (3) Hypokalemia Is this a current diagnosis for this admission?: Yes (4) Hypomagnesemia Is this a current diagnosis for this admission?: Yes (5) Alcohol abuse Is this a current diagnosis for this admission?: Yes Plan: She has a history of alcohol abuse with history of alcohol withdrawal syndrome, she is at risk of alcohol withdrawal syndrome she may require IV lorazepam
[2018-09-29] MEDS: POTASSI CL 20 MEQ/50 ML RIDER 20 MEQ/50 ML RTUPB IV SCH ×2 (21:03→23:04)
[2018-09-29] MEDS: MAGNESIUM SULFATE/D5W 1 GM/100 ML RTUPB IV SCH ×2 (21:11→22:14)
--- NOTE | 2018-09-29 22:21 | EKG REPORT ---
SEVERITY:- BORDERLINE ECG - SINUS TACHYCARDIA NONSPECIFIC ST-T CHANGES : Confirmed by: Martha Fletcher 29-Sep-2018 22:19:34
[2018-09-30] MEDS: NORMAL SALINE 1000 ML 1,000 ML IV PRN (01:29)
[2018-09-30 01:30] LABS: CREATINE KINASE MB 2.94 ng/mL (<4.55); TROPONIN I 0.021 ng/mL
[2018-09-30] MEDS: POTASSI CL 20 MEQ/50 ML RIDER 20 MEQ/50 ML RTUPB IV SCH (01:30)
[2018-09-30] MEDS: LORAZEPAM INJ 2 MG/1 ML VIAL IV PRN ×2 (02:33→16:51)
[2018-09-30 06:40] LABS: HEMATOCRIT 21.9 % (36.0-47.0); MEAN CORPUSCULAR HEMOGLOBIN 40.5 pg (27.0-33.4); MEAN CORPUSCULAR HGB CONC 34.4 g/dL (32.0-36.0); MEAN CORPUSCULAR VOLUME 118 fl (80-97); PLATELET COUNT 201 10^3/uL (150-450); RED BLOOD COUNT 1.87 10^6/uL (3.72-5.28); RED CELL DISTRIBUTION WIDTH 18.8 % (11.5-14.0)
[2018-09-30 07:00] LABS: ALANINE AMINOTRANSFERASE 27 U/L (9-52); ALBUMIN 2.8 g/dL (3.5-5.0); ALKALINE PHOSPHATASE 133 U/L (38-126); ANION GAP 13 (5-19); ASPARTATE AMINO TRANSFERASE 72 U/L (14-36); BILIRUBIN,DIRECT 3.1 mg/dL (0.0-0.4); BILIRUBIN,TOTAL 3.7 mg/dL (0.2-1.3); BLOOD UREA NITROGEN 18 mg/dL (7-20); CALCIUM 8.8 mg/dL (8.4-10.2); CARBON DIOXIDE 23 mmol/L (22-30); CHLORIDE 110 mmol/L (98-107); CHOLESTEROL 99.28 mg/dL (0-200); GLUCOSE 116 mg/dL (75-110); SODIUM 146.2 mmol/L (137-145); TOTAL PROTEIN 6.4 g/dL (6.3-8.2); TRIGLYCERIDES 94 mg/dL (<150)
[2018-09-30 07:09] LABS: HEMOGLOBIN 7.6 g/dL (12.0-15.5)
[2018-09-30 07:11] LABS: DIRECT LDL 56 mg/dL (<100)
[2018-09-30 07:14] LABS: ABSOLUTE LYMPHOCYTES# (MANUAL) 1.8 10^3/uL (0.5-4.7); ABSOLUTE MONOCYTES # (MANUAL) 0.6 10^3/uL (0.1-1.4); ABSOLUTE NEUTROPHILS# (MANUAL) 12.6 10^3/uL (1.7-8.2); BASOPHILS % (MANUAL) 0 % (0-2); EOSINOPHILS % (MANUAL) 0 % (0-6); LYMPHOCYTES % (MANUAL) 10 % (13-45); MONOCYTES % (MANUAL) 4 % (3-13); SEGMENTED NEUTROPHILS % (MAN) 84 % (42-78); TOTAL CELLS COUNTED 100
[2018-09-30 07:15] LABS: ANISOCYTOSIS 2+; HYPOCHROMASIA 2+; PLATELET COMMENT ADEQUATE; POIKILOCYTOSIS 2+; POLYCHROMASIA 1+; TEAR DROP CELLS 2+
[2018-09-30 07:25] LABS: POTASSIUM 2.5 mmol/L (3.6-5.0)
[2018-09-30] MEDS: ENOXAPARIN SODIUM INJ 40 MG/0.4 ML DISP.SYRIN SUBCUT SCH (11:14)
[2018-09-30] MEDS: CEFTRIAXONE 1 GM/D5W RTU 1 GM/50 ML RTUPB IV SCH (11:14)
[2018-09-30] MEDS: POTASSIUM CHLORIDE 20 MEQ/50 ML RTU IV SCH ×2 (12:08→13:31)
[2018-09-30] MEDS: RINGERS SOLUTION,LACTATED 1,000 ML IV PRN ×2 (13:31→23:04)
[2018-09-30 18:45] LABS: ALANINE AMINOTRANSFERASE 18 U/L (9-52); ALBUMIN 2.8 g/dL (3.5-5.0); ALKALINE PHOSPHATASE 119 U/L (38-126); ANION GAP 13 (5-19); ASPARTATE AMINO TRANSFERASE 71 U/L (14-36); BILIRUBIN,DIRECT 2.9 mg/dL (0.0-0.4); BILIRUBIN,TOTAL 3.5 mg/dL (0.2-1.3); BLOOD UREA NITROGEN 17 mg/dL (7-20); CALCIUM 8.8 mg/dL (8.4-10.2); CARBON DIOXIDE 22 mmol/L (22-30); CHLORIDE 113 mmol/L (98-107); GLUCOSE 101 mg/dL (75-110); SODIUM 147.9 mmol/L (137-145); TOTAL PROTEIN 6.5 g/dL (6.3-8.2)
[2018-09-30] MEDS ORDERED: POTASSIUM CHLORIDE 10 MEQ CAPSULE.ER PO ONE (20:00)
--- NOTE | 2018-09-30 22:06 | PDOC PROGRESS REPORT ---
Subjective Progress Note for:: 09/30/18 Subjective:: Patient seen by the bedside, she very somnolent, she had a dose of lorazepam when she became very confused and violent probably due to alcohol withdrawal syndrome Reason For Visit: SEPTIC SHOCK, SOURCE URINE Physical Exam Vital Signs: Temp Pulse Resp BP Pulse Ox 98.3 F 107 H 21 H 120/77 96 09/30/18 20:39 09/30/18 20:39 09/30/18 20:39 09/30/18 20:39 09/30/18 20:39 Intake & Output 09/29/18 09/30/18 10/01/18 06:59 06:59 06:59 Intake Total 5690 160 Balance 5690 160 Weight 69.2 kg General appearance: PRESENT: no acute distress Eye exam: PRESENT: PERRLA Respiratory exam: PRESENT: clear to auscultation dawna Cardiovascular exam: PRESENT: +S1, +S2 GI/Abdominal exam: PRESENT: soft Neurological exam: PRESENT: alert Results Laboratory Results: 09/30/18 05:40 09/30/18 18:19 09/30/18 09/30/18 09/30/18 05:40 05:40 18:19 WBC 15.0 H RBC 1.87 L Hgb 7.6 L Hct 21.9 L MCV 118 H MCH 40.5 H MCHC 34.4 RDW 18.8 H Plt Count 201 Seg Neutrophils % Not Reportable Lymphocytes % Not Reportable Monocytes % Not Reportable Eosinophils % Not Reportable Basophils % Not Reportable Absolute Neutrophils Not Reportable Absolute Lymphocytes Not Reportable Absolute Monocytes Not Reportable Absolute Eosinophils Not Reportable Absolute Basophils Not Reportable Sodium 146.2 H 147.9 H Potassium 2.5 L* 3.0 L* Chloride 110 H 113 H Carbon Dioxide 23 22 Anion Gap 13 13 BUN 18 17 Creatinine 1.53 H 1.25 Est GFR ( Amer) 43 L 54 L Est GFR (Non-Af Amer) 35 L 45 L Glucose 116 H 101 Calcium 8.8 8.8 Total Bilirubin 3.7 H 3.5 H AST 72 H 71 H ALT 27 18 Alkaline Phosphatase 133 H 119 Total Protein 6.4 6.5 Albumin 2.8 L 2.8 L Triglycerides 94 Cholesterol 99.28 LDL Cholesterol Direct 56 VLDL Cholesterol 19.0 HDL Cholesterol 14 L 09/29/18 09/29/18 09/29/18 10:44 10:44 12:59 Creatine Kinase Cancelled CK-MB (CK-2) Troponin I Cancelled 0.028 09/29/18 09/29/18 09/29/18 12:59 15:30 15:30 Creatine Kinase 77 161 H CK-MB (CK-2) 2.69 Troponin I 0.028 09/29/18 09/29/18 09/30/18 18:59 18:59 00:59 Creatine Kinase 201 H 197 H CK-MB (CK-2) 3.45 Troponin I 0.023 09/30/18 00:59 Creatine Kinase CK-MB (CK-2) 2.94 Troponin I 0.021 Impressions: Chest X-Ray 09/29/18 10:11 IMPRESSION: NO ACUTE RADIOGRAPHIC FINDING IN THE CHEST. Assessment & Plan - Diagnosis (1) Septic shock Is this a current diagnosis for this admission?: Yes Plan: The shock state is resolved (2) UTI (urinary tract infection) Qualifiers: Urinary tract infection type: site unspecified Hematuria presence: with hematuria Qualified Code(s): N39.0 - Urinary tract infection, site not specified; R31.9 - Hematuria, unspecified Is this a current diagnosis for this admission?: Yes Plan: continue Rocephin (3) Hypokalemia Is this a current diagnosis for this admission?: Yes Plan: replace K (4) Hypomagnesemia Is this a current diagnosis for this admission?: Yes (5) Alcohol abuse Is this a current diagnosis for this admission?: Yes
[2018-10-01] MEDS: LORAZEPAM INJ 2 MG/1 ML VIAL IV PRN ×3 (01:05→17:04)
[2018-10-01 05:36] LABS: HEMATOCRIT 20.8 % (36.0-47.0); MEAN CORPUSCULAR HEMOGLOBIN 40.3 pg (27.0-33.4); MEAN CORPUSCULAR HGB CONC 34.6 g/dL (32.0-36.0); MEAN CORPUSCULAR VOLUME 116 fl (80-97); PLATELET COUNT 177 10^3/uL (150-450); RED BLOOD COUNT 1.78 10^6/uL (3.72-5.28); WHITE BLOOD COUNT 12.2 10^3/uL (4.0-10.5)
[2018-10-01 06:26] LABS: HEMOGLOBIN 7.2 g/dL (12.0-15.5)
[2018-10-01] MEDS: RINGERS SOLUTION,LACTATED 1,000 ML IV PRN (09:20)
[2018-10-01] MEDS: ENOXAPARIN SODIUM INJ 40 MG/0.4 ML DISP.SYRIN SUBCUT SCH (09:21)
[2018-10-01] MEDS: CEFTRIAXONE 1 GM/D5W RTU 1 GM/50 ML RTUPB IV SCH (09:21)
--- NOTE | 2018-10-01 10:24 | PDOC PROGRESS REPORT ---
Subjective Progress Note for:: 10/01/18 Subjective:: Patient is currently doing fair Still in and out sleepy Patient no history of the alcoholism Patient hemoglobin was 7.4 I was looking for the patient's hemoglobin was 8.4 back in April Patient have a history of the gastric ulcer and a GI bleed in the past Patient potassium was running very low Patient is denied any chest pain to than any shortness of the breath Denied any abdominal pain No fever Reason For Visit: SEPTIC SHOCK, SOURCE URINE Physical Exam Vital Signs: Temp Pulse Resp BP Pulse Ox 99.3 F 112 H 20 109/71 92 10/01/18 07:21 10/01/18 07:21 10/01/18 07:21 10/01/18 07:21 10/01/18 07:21 Intake & Output 09/30/18 10/01/18 10/02/18 06:59 06:59 06:59 Intake Total 5690 1115 1050 Balance 5690 1115 1050 Weight 69.2 kg 72.4 kg Physical Exam: Patients feel drowsy and sleepy but answers the questions General appearance: PRESENT: no acute distress Head exam: PRESENT: atraumatic, normocephalic Eye exam: PRESENT: conjunctiva pink, EOMI, PERRLA. ABSENT: scleral icterus Ear exam: PRESENT: normal external ear exam Mouth exam: PRESENT: moist, tongue midline Neck exam: PRESENT: full ROM. ABSENT: carotid bruit, JVD, lymphadenopathy, thyromegaly Respiratory exam: PRESENT: clear to auscultation dawna Cardiovascular exam: ABSENT: diastolic murmur, rubs, systolic murmur Pulses: PRESENT: normal dorsalis pedis pul, +2 pedal pulses bilateral Vascular exam: PRESENT: normal capillary refill GI/Abdominal exam: PRESENT: normal bowel sounds, soft. ABSENT: distended, guarding, mass, organolmegaly, rebound, tenderness Rectal exam: PRESENT: deferred Neurological exam: PRESENT: alert, awake, oriented to person, oriented to place. ABSENT: motor sensory deficit Psychiatric exam: PRESENT: appropriate affect, normal mood. ABSENT: homicidal ideation, suicidal ideation Skin exam: PRESENT: dry, intact, warm. ABSENT: cyanosis, rash Results Laboratory Results: 10/01/18 04:13 09/30/18 18:19 09/30/18 10/01/18 18: 04:13 WBC 12.2 H RBC 1.78 L Hgb 7.2 L Hct 20.8 L MCV 116 H MCH 40.3 H MCHC 34.6 RDW 19.0 H Plt Count 177 Sodium 147.9 H Potassium 3.0 L* Chloride 113 H Carbon Dioxide 22 Anion Gap 13 BUN 17 Creatinine 1.25 Est GFR ( Amer) 54 L Est GFR (Non-Af Amer) 45 L Glucose 101 Calcium 8.8 Total Bilirubin 3.5 H AST 71 H ALT 18 Alkaline Phosphatase 119 Total Protein 6.5 Albumin 2.8 L 09/29/18 09/29/18 09/29/18 10:44 10:44 12:59 Creatine Kinase Cancelled CK-MB (CK-2) Troponin I Cancelled 0.028 NT-Pro-B Natriuret Pep 09/29/18 09/29/18 09/29/18 12:59 15:30 15:30 Creatine Kinase 77 161 H CK-MB (CK-2) 2.69 Troponin I 0.028 NT-Pro-B Natriuret Pep 09/29/18 09/29/18 09/30/18 18:59 18:59 00:59 Creatine Kinase 201 H 197 H CK-MB (CK-2) 3.45 Troponin I 0.023 NT-Pro-B Natriuret Pep 09/30/18 10/01/18 00:59 04:13 Creatine Kinase CK-MB (CK-2) 2.94 Troponin I 0.021 NT-Pro-B Natriuret Pep 2270 H Impressions: Chest X-Ray 09/29/18 10:11 IMPRESSION: NO ACUTE RADIOGRAPHIC FINDING IN THE CHEST. Assessment & Plan - Diagnosis (1) Hypokalemia Is this a current diagnosis for this admission?: Yes Plan: Will recheck the potassiums today (2) Hypomagnesemia Is this a current diagnosis for this admission?: Yes Plan: Check the magnesium (3) Alcoholic liver disease Is this a current diagnosis for this admission?: Yes (4) Anemia Qualifiers: Anemia type: unspecified type Qualified Code(s): D64.9 - Anemia, unspecified Is this a current diagnosis for this admission?: Yes Plan: We will recheck the CBC check a stool for guaiac and iron study Patient with history of the gastric ulcer we will start the patient on a Protonix (5) Alcohol abuse Is this a current diagnosis for this admission?: Yes Plan: Continues to patient on Ativan and thiamine - Time Time Spent with patient: 15-24 minutes Medications reviewed and adjusted accordingly: Yes Anticipated discharge: Home Within: Other - Plan Summary Plan Summary: Check a CBC Chem-7 hopefully needs to transfuse the blood if is low
[2018-10-01] MEDS: PANTOPRAZOLE SODIUM 40 MG VIAL IV SCH ×2 (11:14→21:49)
[2018-10-01 11:24] LABS: ABSOLUTE RETICS # 0.061 10^6/uL (0.028-0.122); HEMATOCRIT 19.5 % (36.0-47.0); MEAN CORPUSCULAR HEMOGLOBIN 41.1 pg (27.0-33.4); MEAN CORPUSCULAR HGB CONC 34.9 g/dL (32.0-36.0); MEAN CORPUSCULAR VOLUME 118 fl (80-97); PLATELET COUNT 188 10^3/uL (150-450); RED BLOOD COUNT 1.65 10^6/uL (3.72-5.28); RED CELL DISTRIBUTION WIDTH 19.4 % (11.5-14.0); RETICULOCYTE COUNT (AUTO) 3.74 % (0.66-2.85); WHITE BLOOD COUNT 10.8 10^3/uL (4.0-10.5)
[2018-10-01 11:39] LABS: ALANINE AMINOTRANSFERASE 18 U/L (9-52); ALBUMIN 2.6 g/dL (3.5-5.0); ALKALINE PHOSPHATASE 105 U/L (38-126); ANION GAP 9 (5-19); ASPARTATE AMINO TRANSFERASE 65 U/L (14-36); BILIRUBIN,DIRECT 2.8 mg/dL (0.0-0.4); BILIRUBIN,TOTAL 3.5 mg/dL (0.2-1.3); BLOOD UREA NITROGEN 13 mg/dL (7-20); CALCIUM 8.7 mg/dL (8.4-10.2); CARBON DIOXIDE 24 mmol/L (22-30); CHLORIDE 113 mmol/L (98-107); GLUCOSE 90 mg/dL (75-110); IRON(TIBC) 118.2 ug/dL (37-170); POTASSIUM 3.5 mmol/L (3.6-5.0); SODIUM 146.2 mmol/L (137-145); TOTAL PROTEIN 6.2 g/dL (6.3-8.2)
[2018-10-01 11:47] LABS: ABSOLUTE LYMPHOCYTES# (MANUAL) 1.6 10^3/uL (0.5-4.7); ABSOLUTE NEUTROPHILS# (MANUAL) 9.1 10^3/uL (1.7-8.2); BASOPHILS % (MANUAL) 1 % (0-2); EOSINOPHILS % (MANUAL) 0 % (0-6); LYMPHOCYTES % (MANUAL) 15 % (13-45); MONOCYTES % (MANUAL) 0 % (3-13); SEGMENTED NEUTROPHILS % (MAN) 84 % (42-78); TOTAL CELLS COUNTED 100
[2018-10-01 11:48] LABS: ANISOCYTOSIS 2+; PLATELET COMMENT ADEQUATE; POIKILOCYTOSIS 1+; POLYCHROMASIA SLIGHT; TARGET CELLS 1+; TOXIC GRANULATION SLIGHT; TOXIC VACUOLATION PRESENT
[2018-10-01 11:51] LABS: HEMOGLOBIN 6.8 g/dL (12.0-15.5)
[2018-10-01 12:44] LABS: FOLATE 3.23 ng/mL (>2.76)
[2018-10-01] MEDS ORDERED: MAGNESIUM SULFATE/D5W 1 GM/100 ML RTUPB IV ONE (12:45)
[2018-10-01] MEDS ORDERED: POTASSIUM CHLORIDE 10 MEQ CAPSULE.ER PO ONE (12:45)
[2018-10-01] MEDS: POTASSI CL 20 MEQ/NS 1L 1000 ML IV PRN (12:51)
[2018-10-02] MEDS: LORAZEPAM INJ 2 MG/1 ML VIAL IV PRN ×2 (05:25→20:51)
[2018-10-02 05:47] LABS: HEMATOCRIT 31.8 % (36.0-47.0); MEAN CORPUSCULAR HEMOGLOBIN 37.2 pg (27.0-33.4); MEAN CORPUSCULAR HGB CONC 35.6 g/dL (32.0-36.0); PLATELET COUNT 158 10^3/uL (150-450); RED BLOOD COUNT 3.05 10^6/uL (3.72-5.28); RED CELL DISTRIBUTION WIDTH 27.2 % (11.5-14.0); WHITE BLOOD COUNT 10.6 10^3/uL (4.0-10.5)
[2018-10-02 06:09] LABS: ANION GAP 7 (5-19); BLOOD UREA NITROGEN 10 mg/dL (7-20); CALCIUM 8.7 mg/dL (8.4-10.2); CARBON DIOXIDE 26 mmol/L (22-30); CHLORIDE 115 mmol/L (98-107); GLUCOSE 97 mg/dL (75-110); SODIUM 148.2 mmol/L (137-145)
[2018-10-02 06:30] LABS: HEMOGLOBIN 11.3 g/dL (12.0-15.5); MEAN CORPUSCULAR VOLUME 104 fl (80-97)
[2018-10-02] MEDS: POTASSI CL 20 MEQ/NS 1L 1000 ML IV PRN (07:49)
[2018-10-02] MEDS ORDERED: POTASSIUM CHLORIDE 10 MEQ CAPSULE.ER PO ONE (09:00)
[2018-10-02] MEDS: THIAMINE HCL 100 MG TABLET PO SCH (09:24)
[2018-10-02] MEDS: CEFTRIAXONE 1 GM/D5W RTU 1 GM/50 ML RTUPB IV SCH (09:25)
[2018-10-02] MEDS: PANTOPRAZOLE SODIUM 40 MG VIAL IV SCH ×2 (09:25→21:28)
[2018-10-02] MEDS: ENOXAPARIN SODIUM INJ 40 MG/0.4 ML DISP.SYRIN SUBCUT SCH (09:25)
--- NOTE | 2018-10-02 10:24 | PDOC PROGRESS REPORT ---
Subjective Progress Note for:: 10/02/18 Subjective:: Since received the 2 units of the blood Patient stool guaiac is negative Patient's potassium is 3.0 Patient is alert awake but little altered Patient is also receiving the Ativan Patient is denied any chest pain to than any shortness of the breath Reason For Visit: SEPTIC SHOCK, SOURCE URINE Physical Exam Vital Signs: Temp Pulse Resp BP Pulse Ox 97.6 F 108 H 20 137/81 H 99 10/02/18 08:04 10/02/18 08:04 10/02/18 08:04 10/02/18 08:04 10/02/18 08:04 Intake & Output 10/01/18 10/02/18 10/03/18 06:59 06:59 06:59 Intake Total 1115 3007 150 Balance 1115 3007 150 Weight 72.4 kg 71.3 kg General appearance: PRESENT: no acute distress Head exam: PRESENT: atraumatic, normocephalic Eye exam: PRESENT: conjunctiva pink, EOMI, PERRLA. ABSENT: scleral icterus Ear exam: PRESENT: normal external ear exam Mouth exam: PRESENT: moist, tongue midline Neck exam: PRESENT: full ROM. ABSENT: carotid bruit, JVD, lymphadenopathy, thyromegaly Respiratory exam: PRESENT: clear to auscultation dawna Cardiovascular exam: PRESENT: RRR. ABSENT: diastolic murmur, rubs, systolic murmur Vascular exam: PRESENT: normal capillary refill GI/Abdominal exam: PRESENT: normal bowel sounds, soft. ABSENT: distended, guarding, mass, organolmegaly, rebound, tenderness Rectal exam: PRESENT: deferred Neurological exam: PRESENT: alert, awake, oriented to person. ABSENT: motor sensory deficit Psychiatric exam: PRESENT: appropriate affect, normal mood. ABSENT: homicidal ideation, suicidal ideation Skin exam: PRESENT: dry, intact, warm. ABSENT: cyanosis, rash Results Laboratory Results: 10/02/18 05:06 10/02/18 05:06 10/01/18 10/01/18 10/01/18 11:08 11:08 11:08 WBC 10.8 H RBC 1.65 L Hgb 6.8 L Hct 19.5 L MCV 118 H MCH 41.1 H MCHC 34.9 RDW 19.4 H Plt Count 188 Seg Neutrophils % Not Reportable Lymphocytes % Not Reportable Monocytes % Not Reportable Eosinophils % Not Reportable Basophils % Not Reportable Absolute Neutrophils Not Reportable Absolute Lymphocytes Not Reportable Absolute Monocytes Not Reportable Absolute Eosinophils Not Reportable Absolute Basophils Not Reportable Retic Count (auto) 3.74 H Absolute Retic 0.061 Sodium Potassium Chloride Carbon Dioxide Anion Gap BUN Creatinine Est GFR ( Amer) Est GFR (Non-Af Amer) Glucose Calcium Magnesium Iron 118.2 TIBC 195 L % Saturation 61 Ferritin 734.00 H Total Bilirubin AST ALT Alkaline Phosphatase Total Protein Albumin Vitamin B12 755.0 Folate 3.23 Stool Occult Blood Blood Type Antibody Screen 10/01/18 10/01/18 10/01/18 11:08 13:35 18:25 WBC RBC Hgb Hct MCV MCH MCHC RDW Plt Count Seg Neutrophils % Lymphocytes % Monocytes % Eosinophils % Basophils % Absolute Neutrophils Absolute Lymphocytes Absolute Monocytes Absolute Eosinophils Absolute Basophils Retic Count (auto) Absolute Retic Sodium 146.2 H Potassium 3.5 L Chloride 113 H Carbon Dioxide 24 Anion Gap 9 BUN 13 Creatinine 1.01 Est GFR ( Amer) > 60 Est GFR (Non-Af Amer) 57 L Glucose 90 Calcium 8.7 Magnesium 0.9 L* Iron TIBC % Saturation Ferritin Total Bilirubin 3.5 H AST 65 H ALT 18 Alkaline Phosphatase 105 Total Protein 6.2 L Albumin 2.6 L Vitamin B12 Folate Stool Occult Blood NEGATIVE Blood Type B POSITIVE Antibody Screen NEGATIVE 10/02/18 10/02/18 05:06 05:06 WBC 10.6 H RBC 3.05 L Hgb 11.3 L D Hct 31.8 L MCV 104 H D MCH 37.2 H MCHC 35.6 RDW 27.2 H Plt Count 158 Seg Neutrophils % Lymphocytes % Monocytes % Eosinophils % Basophils % Absolute Neutrophils Absolute Lymphocytes Absolute Monocytes Absolute Eosinophils Absolute Basophils Retic Count (auto) Absolute Retic Sodium 148.2 H Potassium 3.0 L* Chloride 115 H Carbon Dioxide 26 Anion Gap 7 BUN 10 Creatinine 0.95 Est GFR ( Amer) > 60 Est GFR (Non-Af Amer) > 60 Glucose 97 Calcium 8.7 Magnesium Iron TIBC % Saturation Ferritin Total Bilirubin AST ALT Alkaline Phosphatase Total Protein Albumin Vitamin B12 Folate Stool Occult Blood Blood Type Antibody Screen 09/29/18 12:02 Catheterized Urine Urine Culture - Final Escherichia Coli Proteus Mirabilis 09/29/18 09/29/18 09/29/18 10:44 10:44 12:59 Creatine Kinase Cancelled CK-MB (CK-2) Troponin I Cancelled 0.028 NT-Pro-B Natriuret Pep 09/29/18 09/29/18 09/29/18 12:59 15:30 15:30 Creatine Kinase 77 161 H CK-MB (CK-2) 2.69 Troponin I 0.028 NT-Pro-B Natriuret Pep 09/29/18 09/29/18 09/30/18 18:59 18:59 00:59 Creatine Kinase 201 H 197 H CK-MB (CK-2) 3.45 Troponin I 0.023 NT-Pro-B Natriuret Pep 09/30/18 10/01/18 00:59 04:13 Creatine Kinase CK-MB (CK-2) 2.94 Troponin I 0.021 NT-Pro-B Natriuret Pep 2270 H Impressions: Chest X-Ray 09/29/18 10:11 IMPRESSION: NO ACUTE RADIOGRAPHIC FINDING IN THE CHEST. Assessment & Plan - Diagnosis (1) Hypokalemia Is this a current diagnosis for this admission?: Yes Plan: Replace the potassium (2) Hypomagnesemia Is this a current diagnosis for this admission?: Yes Plan: Check the magnesium (3) Alcoholic liver disease Is this a current diagnosis for this admission?: Yes (4) Anemia Qualifiers: Anemia type: unspecified type Qualified Code(s): D64.9 - Anemia, unspecified Is this a current diagnosis for this admission?: Yes Plan: Status post 2 units of the blood no sign of any active GI bleed (5) Alcohol abuse Is this a current diagnosis for this admission?: Yes Plan: Continues to patient on Ativan and thiamine - Time Time Spent with patient: 15-24 minutes Medications reviewed and adjusted accordingly: Yes Anticipated discharge: Other Within: Other - Plan Summary Plan Summary: Replace the potassium
[2018-10-02] MEDS ORDERED: POTASSI CL 20 MEQ/NS 1L 1,000 ML IV PRN (10:25)
[2018-10-03] MEDS ORDERED: CEFAZOLIN 2 GM/D5W RTU 2 GM/50 ML RTUPB IV PRN (05:00)
[2018-10-03 05:16] LABS: ANION GAP 10 (5-19); BLOOD UREA NITROGEN 8 mg/dL (7-20); CALCIUM 8.5 mg/dL (8.4-10.2); CARBON DIOXIDE 22 mmol/L (22-30); CHLORIDE 118 mmol/L (98-107); GLUCOSE 81 mg/dL (75-110); POTASSIUM 3.5 mmol/L (3.6-5.0); SODIUM 149.7 mmol/L (137-145)
[2018-10-03 05:34] LABS: ABSOLUTE BASOPHILS # (AUTO) 0.1 10^3/uL (0.0-0.2); ABSOLUTE EOSINOPHILS # (AUTO) 0.2 10^3/uL (0.0-0.6); ABSOLUTE LYMPHOCYTES (AUTO) 1.5 10^3/uL (0.5-4.7); ABSOLUTE MONOCYTES (AUTO) 0.7 10^3/uL (0.1-1.4); ABSOLUTE NEUT (AUTO) 8.3 10^3/uL (1.7-8.2); BASOPHILS % (AUTO) 0.9 % (0-2); EOSINOPHILS % (AUTO) 1.7 % (0-6); HEMATOCRIT 30.3 % (36.0-47.0); HEMOGLOBIN 10.3 g/dL (12.0-15.5); LYMPHOCYTES % (AUTO) 13.9 % (13-45); MEAN CORPUSCULAR HEMOGLOBIN 35.8 pg (27.0-33.4); MEAN CORPUSCULAR HGB CONC 34.2 g/dL (32.0-36.0); MEAN CORPUSCULAR VOLUME 105 fl (80-97); MONOCYTES % (AUTO) 6.8 % (3-13); PLATELET COUNT 143 10^3/uL (150-450); RED BLOOD COUNT 2.89 10^6/uL (3.72-5.28); SEGMENTED NEUTROPHILS % (AUTO) 76.7 % (42-78); TOTAL CELLS COUNTED % (AUTO) 100 %; WHITE BLOOD COUNT 10.9 10^3/uL (4.0-10.5)
[2018-10-03 06:10] LABS: ANISOCYTOSIS 4+
[2018-10-03 06:11] LABS: BURR CELLS 2+; PLATELET COMMENT ADEQUATE; TEAR DROP CELLS 1+
[2018-10-03] MEDS: ENOXAPARIN SODIUM INJ 40 MG/0.4 ML DISP.SYRIN SUBCUT SCH (09:12)
[2018-10-03] MEDS: CEFTRIAXONE 1 GM/D5W RTU 1 GM/50 ML RTUPB IV SCH (09:19)
[2018-10-03] MEDS: THIAMINE HCL 100 MG TABLET PO SCH (09:19)
[2018-10-03] MEDS: PANTOPRAZOLE SODIUM 40 MG VIAL IV SCH ×2 (09:19→21:19)
[2018-10-03] MEDS: MAGNESIUM SULFATE 1 GM/D5W 100 ML IV SCH ×2 (09:19→11:00)
[2018-10-03] MEDS: LORAZEPAM INJ 2 MG/1 ML VIAL IV PRN (15:25)
--- NOTE | 2018-10-03 16:47 | RADIOLOGY REPORT (SQ) ---
EXAM DESCRIPTION: CT HEAD WITHOUT COMPLETED DATE/TIME: 10/03/2018 4:33 pm REASON FOR STUDY: AMS COMPARISON: None. TECHNIQUE: Axial images acquired through the brain without intravenous contrast. Images reviewed wi th bone, brain and subdural windows. 11/29/2017 Images stored on PACS. All CT scanners at this facility use dose modulation, iterative reconstruction, and/or weight based d osing when appropriate to reduce radiation dose to as low as reasonably achievable (ALARA). [facility]: Dose Right [facility]: CareDose [facility]: Dose Right [facility]: Teradose 4D [facility]: Adomos RADIATION DOSE: CT Rad equipment meets quality standard of care and radiation dose reduction techniq ues were employed. CTDIvol: 55.2 mGy. DLP: 1056 mGy-cm.mGy. LIMITATIONS: None. FINDINGS: VENTRICLES: Prominent. CEREBRUM: No masses. No hemorrhage. No midline shift. Areas of low density in the white matter mos t likely due to chronic micro-vascular ischemic change. No evidence for acute infarction. CEREBELLUM: No masses. No hemorrhage. No alteration of density. No evidence for acute infarction. EXTRAAXIAL SPACES: Age-related involutional change. No fluid collections. No masses. ORBITS AND GLOBE: No intra- or extraconal masses. Normal contour of globe without masses. CALVARIUM: No fracture. PARANASAL SINUSES: Fluid in both maxillary sinuses. SOFT TISSUES: No mass or hematoma. OTHER: No other significant finding. IMPRESSION: CHRONIC CHANGES OF ATROPHY AND MICROVASCULAR ISCHEMIA. NO ACUTE PROCESS. EVIDENCE OF ACUTE STROKE: NO. TECHNICAL DOCUMENTATION: JOB ID: [id number] Quality ID # [id number]: Final reports with documentation of one or more dose reduction techniques (e.g., Au tomated exposure control, adjustment of the mA and/or kV according to patient size, use of iterative reconstruction technique) 2010 [employer]- All Rights Reserved Reading location - IP/workstation name: [email or web address]
[2018-10-03] MEDS ORDERED: NORMAL SALINE 1000 ML 1,000 ML with POTASSIUM CHLORIDE 20 MEQ, MAGNESIUM SULFATE 8 MEQ,... IV SCH ×4 (18:00)
--- NOTE | 2018-10-03 19:13 | RADIOLOGY REPORT (SQ) ---
EXAM DESCRIPTION: CHEST SINGLE VIEW COMPLETED DATE/TIME: 10/03/2018 7:02 pm REASON FOR STUDY: wheezing, sob COMPARISON: 09/29/2018 EXAM PARAMETERS: NUMBER OF VIEWS: One view. TECHNIQUE: Single frontal radiographic view of the chest acquired. RADIATION DOSE: NA LIMITATIONS: None. FINDINGS: LUNGS AND PLEURA: There is increased opacification in the right apex. Scarring in the rig ht upper lobe. MEDIASTINUM AND HILAR STRUCTURES: Right hilum is elevated. HEART AND VASCULAR STRUCTURES: Heart normal in size. Normal vasculature. BONES: No acute findings. HARDWARE: None in the chest. OTHER: No other significant finding. IMPRESSION: Chronic changes in the right apex. Cannot exclude an acute pneumonia. TECHNICAL DOCUMENTATION: JOB ID: [id number] [employer]- All Rights Reserved Reading location - IP/workstation name: [email or web address]
--- NOTE | 2018-10-03 20:36 | PDOC PROGRESS REPORT ---
Subjective Progress Note for:: 10/03/18 Subjective:: Patient was seen today by the bedside she is very confused, agitated, there are many potential etiology for the confusion alcohol withdrawal is a potential etiology, she probably need complete sedation with lorazepam in intensive care unit Reason For Visit: SEPTIC SHOCK, SOURCE URINE Physical Exam Vital Signs: Temp Pulse Resp BP Pulse Ox 98.7 F 103 H 20 141/92 H 94 10/03/18 19:52 10/03/18 19:52 10/03/18 19:52 10/03/18 19:52 10/03/18 19:52 Intake & Output 10/02/18 10/03/18 10/04/18 06:59 06:59 06:59 Intake Total 3007 500 1724 Balance 3007 500 1724 Weight 71.3 kg 72.2 kg General appearance: PRESENT: no acute distress Eye exam: PRESENT: PERRLA Respiratory exam: PRESENT: clear to auscultation dawna Cardiovascular exam: PRESENT: +S1, +S2 Neurological exam: PRESENT: altered Results Laboratory Results: 10/03/18 04:50 10/03/18 04:50 10/03/18 10/03/18 10/03/18 04:50 04:50 11:26 WBC 10.9 H RBC 2.89 L Hgb 10.3 L Hct 30.3 L MCV 105 H MCH 35.8 H MCHC 34.2 RDW 28.0 H Plt Count 143 L Seg Neutrophils % 76.7 Lymphocytes % 13.9 Monocytes % 6.8 Eosinophils % 1.7 Basophils % 0.9 Absolute Neutrophils 8.3 H Absolute Lymphocytes 1.5 Absolute Monocytes 0.7 Absolute Eosinophils 0.2 Absolute Basophils 0.1 Sodium 149.7 H Potassium 3.5 L Chloride 118 H Carbon Dioxide 22 Anion Gap 10 BUN 8 Creatinine 0.88 Est GFR ( Amer) > 60 Est GFR (Non-Af Amer) > 60 Glucose 81 Calcium 8.5 Magnesium 0.9 L* Ammonia 64.7 H 09/29/18 09/29/18 09/29/18 10:44 10:44 12:59 Creatine Kinase Cancelled CK-MB (CK-2) Troponin I Cancelled 0.028 NT-Pro-B Natriuret Pep 09/29/18 09/29/18 09/29/18 12:59 15:30 15:30 Creatine Kinase 77 161 H CK-MB (CK-2) 2.69 Troponin I 0.028 NT-Pro-B Natriuret Pep 09/29/18 09/29/18 09/30/18 18:59 18:59 00:59 Creatine Kinase 201 H 197 H CK-MB (CK-2) 3.45 Troponin I 0.023 NT-Pro-B Natriuret Pep 09/30/18 10/01/18 10/03/18 00:59 04:13 04:50 Creatine Kinase CK-MB (CK-2) 2.94 Troponin I 0.021 NT-Pro-B Natriuret Pep 2270 H 3170 H Impressions: Chest X-Ray 10/03/18 00:00 IMPRESSION: Chronic changes in the right apex. Cannot exclude an acute pneumonia. Head CT 10/03/18 00:00 IMPRESSION: CHRONIC CHANGES OF ATROPHY AND MICROVASCULAR ISCHEMIA. NO ACUTE PROCESS. EVIDENCE OF ACUTE STROKE: NO. Assessment & Plan - Diagnosis (1) Septic shock Is this a current diagnosis for this admission?: Yes (2) UTI (urinary tract infection) Qualifiers: Urinary tract infection type: site unspecified Hematuria presence: with hematuria Qualified Code(s): N39.0 - Urinary tract infection, site not specified; R31.9 - Hematuria, unspecified Is this a current diagnosis for this admission?: Yes (3) Hypokalemia Is this a current diagnosis for this admission?: Yes (4) Hypomagnesemia Is this a current diagnosis for this admission?: Yes (5) Alcohol abuse Is this a current diagnosis for this admission?: Yes (6) Metabolic encephalopathy Is this a current diagnosis for this admission?: Yes Plan: Patient is very confused, there are many potential etiology of the confusion including elevated serum ammonia level, alcohol withdrawal syndrome, infection/UTI, seizure though unlikely, EEG is ordered, CT head was done there is no intracranial hemorrhage (7) Hyperammonemia Is this a current diagnosis for this admission?: Yes Plan: Give lactulose per rectum (8) Alcohol withdrawal Qualifiers: Complication of substance-induced condition: with delirium Qualified Code(s): F10.231 - Alcohol dependence with withdrawal delirium Is this a current diagnosis for this admission?: Yes Plan: Start Lorazepam infusion to full sedation
[2018-10-03] MEDS ORDERED: LORAZEPAM 24 MG/240 ML BAG IV PRN (20:39)
[2018-10-03] MEDS ORDERED: LACTULOSE SYRUP 20 GM/30 ML UDCUP PO ONE (22:30)
[2018-10-03] MEDS ORDERED: LACTULOSE SYRUP 20 GM/30 ML UDCUP ONE (23:11)
[2018-10-03] MEDS ORDERED: LACTULOSE SYRUP 20 GM/30 ML UDCUP PR ONE (23:15)
[2018-10-03] MEDS ORDERED: LORAZEPAM 1 MG TABLET (TAPER DOSING) PO SCH (23:30)
[2018-10-03] MEDS: LACTULOSE SYRUP 20 GM/30 ML UDCUP PR ONE (23:38)
[2018-10-03] MEDS ORDERED: NORMAL SALINE 1000 ML 1,000 ML with POTASSIUM CHLORIDE 20 MEQ, MAGNESIUM SULFATE 8 MEQ,... IV ONE ×4 (23:45)
[2018-10-03] MEDS ORDERED: MAGNESIUM SULFATE INJ 8 MEQ/2 ML IV PRN (23:46)
[2018-10-03] MEDS ORDERED: POTASSIUM CHLORIDE INJ 40 MEQ/20 ML SDV IV PRN (23:46)
[2018-10-03] MEDS ORDERED: MVI, ADULT NO.1 WITH VIT K INJ 10 ML VIAL IV PRN (23:47)
[2018-10-04] MEDS: LACTULOSE SYRUP 20 GM/30 ML UDCUP PR ONE (00:28)
[2018-10-04] MEDS: LORAZEPAM INJ 2 MG/1 ML VIAL (TAPER DOSING) IV SCH ×4 (00:56→20:29)
[2018-10-04 05:41] LABS: ANION GAP 7 (5-19); BLOOD UREA NITROGEN 8 mg/dL (7-20); CALCIUM 8.5 mg/dL (8.4-10.2); CARBON DIOXIDE 25 mmol/L (22-30); CHLORIDE 116 mmol/L (98-107); GLUCOSE 115 mg/dL (75-110); POTASSIUM 3.3 mmol/L (3.6-5.0); SODIUM 148.3 mmol/L (137-145)
[2018-10-04] MEDS: CEFTRIAXONE 1 GM/D5W RTU 1 GM/50 ML RTUPB IV SCH (08:38)
[2018-10-04] MEDS: PANTOPRAZOLE SODIUM 40 MG VIAL IV SCH ×2 (08:38→22:46)
[2018-10-04] MEDS: NORMAL SALINE 1000 ML 1,000 ML with POTASSIUM CHLORIDE 20 MEQ, MAGNESIUM SULFATE 8 MEQ,... IV SCH ×4 (08:44)
[2018-10-04] MEDS: ENOXAPARIN SODIUM INJ 40 MG/0.4 ML DISP.SYRIN SUBCUT SCH (08:45)
[2018-10-04] MEDS: THIAMINE HCL 100 MG TABLET PO SCH (08:46)
[2018-10-04 13:56] LABS: ABSOLUTE BASOPHILS # (AUTO) 0.1 10^3/uL (0.0-0.2); ABSOLUTE EOSINOPHILS # (AUTO) 0.2 10^3/uL (0.0-0.6); ABSOLUTE LYMPHOCYTES (AUTO) 1.5 10^3/uL (0.5-4.7); ABSOLUTE MONOCYTES (AUTO) 0.9 10^3/uL (0.1-1.4); ABSOLUTE NEUT (AUTO) 8.7 10^3/uL (1.7-8.2); BASOPHILS % (AUTO) 1.2 % (0-2); EOSINOPHILS % (AUTO) 1.7 % (0-6); HEMATOCRIT 29.4 % (36.0-47.0); LYMPHOCYTES % (AUTO) 13.4 % (13-45); MEAN CORPUSCULAR HEMOGLOBIN 36.5 pg (27.0-33.4); MEAN CORPUSCULAR HGB CONC 34.2 g/dL (32.0-36.0); MEAN CORPUSCULAR VOLUME 107 fl (80-97); MONOCYTES % (AUTO) 7.5 % (3-13); PLATELET COUNT 125 10^3/uL (150-450); RED BLOOD COUNT 2.75 10^6/uL (3.72-5.28); RED CELL DISTRIBUTION WIDTH 26.6 % (11.5-14.0); SEGMENTED NEUTROPHILS % (AUTO) 76.2 % (42-78); TOTAL CELLS COUNTED % (AUTO) 100 %; WHITE BLOOD COUNT 11.4 10^3/uL (4.0-10.5)
[2018-10-04 14:49] LABS: ANISOCYTOSIS 3+; BURR CELLS SLIGHT; HYPOCHROMASIA 2+; PLATELET COMMENT ADEQUATE; POIKILOCYTOSIS 1+; POLYCHROMASIA SLIGHT; SCHISTOCYTES SLIGHT; TARGET CELLS 1+; TEAR DROP CELLS 1+
[2018-10-04] MEDS ORDERED: NORMAL SALINE 1000 ML 1,000 ML with POTASSIUM CHLORIDE 20 MEQ, MAGNESIUM SULFATE 8 MEQ,... IV SCH ×4 (18:00)
--- NOTE | 2018-10-04 19:24 | PDOC PROGRESS REPORT ---
Subjective Progress Note for:: 10/04/18 Subjective:: Patient seen by the bedside Presently on as needed Lorazepam, I requested for patient to be transferred to ICU yesterday for continues Lorazepam infusion but the nurses refused to accept him in ICU because the nurse manager library said there is no bed ,presently in IMCU on a PRN lorazepam not the ideal situation for this patient with alcohol abuse and also history of alcohol withdrawal syndrome Reason For Visit: SEPSIS, UTI, AMS, ACUTE KIDNEY INJURY, DELIRIUM Physical Exam Vital Signs: Temp Pulse Resp BP Pulse Ox 98.0 F 108 H 22 H 132/95 H 95 10/04/18 12:34 10/04/18 14:00 10/04/18 12:34 10/04/18 12:34 10/04/18 12:34 Intake & Output 10/03/18 10/04/18 10/05/18 06:59 06:59 06:59 Intake Total 500 2592 150 Output Total 300 275 Balance 500 2292 -125 Weight 72.2 kg 75.2 kg General appearance: PRESENT: no acute distress Eye exam: PRESENT: PERRLA Respiratory exam: PRESENT: clear to auscultation dawna Cardiovascular exam: PRESENT: +S1, +S2 GI/Abdominal exam: PRESENT: soft Neurological exam: PRESENT: altered Results Laboratory Results: 10/04/18 04:24 10/04/18 04:24 10/04/18 10/04/18 10/04/18 04:24 04:24 04:24 WBC 11.4 H RBC 2.75 L Hgb 10.0 L Hct 29.4 L MCV 107 H MCH 36.5 H MCHC 34.2 RDW 26.6 H Plt Count 125 L Seg Neutrophils % 76.2 Lymphocytes % 13.4 Monocytes % 7.5 Eosinophils % 1.7 Basophils % 1.2 Absolute Neutrophils 8.7 H Absolute Lymphocytes 1.5 Absolute Monocytes 0.9 Absolute Eosinophils 0.2 Absolute Basophils 0.1 Carbonic Acid HCO3/H2CO3 Ratio ABG pH ABG pCO2 ABG pO2 ABG HCO3 ABG O2 Saturation ABG Base Excess FiO2 Sodium 148.3 H Potassium 3.3 L Chloride 116 H Carbon Dioxide 25 Anion Gap 7 BUN 8 Creatinine 0.89 Est GFR ( Amer) > 60 Est GFR (Non-Af Amer) > 60 Glucose 115 H Calcium 8.5 Magnesium 1.3 L 10/04/18 16:59 WBC RBC Hgb Hct MCV MCH MCHC RDW Plt Count Seg Neutrophils % Lymphocytes % Monocytes % Eosinophils % Basophils % Absolute Neutrophils Absolute Lymphocytes Absolute Monocytes Absolute Eosinophils Absolute Basophils Carbonic Acid Cancelled HCO3/H2CO3 Ratio Cancelled ABG pH Cancelled ABG pCO2 Cancelled ABG pO2 Cancelled ABG HCO3 Cancelled ABG O2 Saturation Cancelled ABG Base Excess Cancelled FiO2 Cancelled Sodium Potassium Chloride Carbon Dioxide Anion Gap BUN Creatinine Est GFR ( Amer) Est GFR (Non-Af Amer) Glucose Calcium Magnesium 09/29/18 12:59 Blood Blood Culture - Final NO GROWTH IN 5 DAYS 09/29/18 10:44 Blood Blood Culture - Final NO GROWTH IN 5 DAYS 09/29/18 09/29/18 09/29/18 10:44 10:44 12:59 Creatine Kinase Cancelled CK-MB (CK-2) Troponin I Cancelled 0.028 NT-Pro-B Natriuret Pep 09/29/18 09/29/18 09/29/18 12:59 15:30 15:30 Creatine Kinase 77 161 H CK-MB (CK-2) 2.69 Troponin I 0.028 NT-Pro-B Natriuret Pep 09/29/18 09/29/18 09/30/18 18:59 18:59 00:59 Creatine Kinase 201 H 197 H CK-MB (CK-2) 3.45 Troponin I 0.023 NT-Pro-B Natriuret Pep 09/30/18 10/01/18 10/03/18 00:59 04:13 04:50 Creatine Kinase CK-MB (CK-2) 2.94 Troponin I 0.021 NT-Pro-B Natriuret Pep 2270 H 3170 H Impressions: Chest X-Ray 10/03/18 00:00 IMPRESSION: Chronic changes in the right apex. Cannot exclude an acute pneumonia. Head CT 10/03/18 00:00 IMPRESSION: CHRONIC CHANGES OF ATROPHY AND MICROVASCULAR ISCHEMIA. NO ACUTE PROCESS. EVIDENCE OF ACUTE STROKE: NO. Assessment & Plan - Diagnosis (1) Septic shock Is this a current diagnosis for this admission?: Yes Plan: resolved (2) UTI (urinary tract infection) Qualifiers: Urinary tract infection type: site unspecified Hematuria presence: with hematuria Qualified Code(s): N39.0 - Urinary tract infection, site not specified; R31.9 - Hematuria, unspecified Is this a current diagnosis for this admission?: Yes (3) Hypokalemia Is this a current diagnosis for this admission?: Yes (4) Hypomagnesemia Is this a current diagnosis for this admission?: Yes (5) Alcohol abuse Is this a current diagnosis for this admission?: Yes (6) Metabolic encephalopathy Is this a current diagnosis for this admission?: Yes (7) Hyperammonemia Is this a current diagnosis for this admission?: Yes (8) Alcohol withdrawal Qualifiers: Complication of substance-induced condition: with delirium Qualified Code(s): F10.231 - Alcohol dependence with withdrawal delirium Is this a current diagnosis for this admission?: Yes - Plan Summary Plan Summary: Follow lab data, continue banana infusion,discontinue lovenox ,because of declining platelet count
[2018-10-04] MEDS: MAGNESIUM SULFATE/D5W 1 GM/100 ML RTUPB IV SCH ×2 (20:37→22:47)
[2018-10-05 00:13] LABS: VENOUS BLOOD BASE EXCESS -3.1 mmol/L; VENOUS BLOOD HCO3 24.5 mmol/L (20-32); VENOUS BLOOD PCO2 57.9 mmHg (35-63); VENOUS BLOOD PH 7.25 (7.30-7.42)
[2018-10-05 02:10] LABS: ANION GAP 7 (5-19); BLOOD UREA NITROGEN 6 mg/dL (7-20); CALCIUM 8.7 mg/dL (8.4-10.2); CARBON DIOXIDE 25 mmol/L (22-30); CHLORIDE 118 mmol/L (98-107); GLUCOSE 111 mg/dL (75-110); POTASSIUM 3.5 mmol/L (3.6-5.0); SODIUM 150.4 mmol/L (137-145)
[2018-10-05] MEDS: LORAZEPAM INJ 2 MG/1 ML VIAL (TAPER DOSING) IV SCH ×3 (04:00→20:53)
[2018-10-05] MEDS ORDERED: PROPOFOL 1,000 MG/100 ML INFUS..BTL IV ONE (08:44)
--- NOTE | 2018-10-05 08:56 | RADIOLOGY REPORT (SQ) ---
EXAM DESCRIPTION: CHEST SINGLE VIEW COMPLETED DATE/TIME: 10/05/2018 8:44 am REASON FOR STUDY: Shortness of Breath COMPARISON: AP chest 10/03/2018, 09/29/2018 EXAM PARAMETERS: NUMBER OF VIEWS: One view. TECHNIQUE: Single frontal radiographic view of the chest acquired. RADIATION DOSE: NA LIMITATIONS: None. FINDINGS: LUNGS AND PLEURA: Diffuse airspace disease is present throughout the left lung, asymmetric pulmonary edema versus pneumonia. Trace left pleural effusion may be present. No left-sided pneumothorax. On the right side, stable upper lobe collapse and consolidation is present with hyperinflation of the remaining right lung. MEDIASTINUM AND HILAR STRUCTURES: No masses. Contour normal. HEART AND VASCULAR STRUCTURES: Heart normal in size. Normal vasculature. BONES: No acute findings. HARDWARE: None in the chest. OTHER: No other significant finding. IMPRESSION: Diffuse left-sided airspace disease, asymmetric pulmonary edema versus pneumonia. Trace left pleural effusion TECHNICAL DOCUMENTATION: JOB ID: [id number] [employer]- All Rights Reserved Reading location - IP/workstation name: [email or web address]
[2018-10-05] MEDS: PROPOFOL 1,000 MG/100 ML INFUS..BTL IV PRN ×3 (09:30→23:20)
[2018-10-05] MEDS ORDERED: PHARMACY COMMUNICATION ORDER MC NR ×2 (09:45)
[2018-10-05 10:04] LABS: ARTERIAL BLOOD BASE EXCESS -7.9 mmol/L; ARTERIAL BLOOD H2CO3 1.69 mmol/L (1.05-1.35); ARTERIAL BLOOD HCO3 20.5 mmol/L (20-24); ARTERIAL BLOOD O2 SATURATION 88.3 % (94-98); ARTERIAL BLOOD PCO2 56.3 mmHg (35-45); ARTERIAL BLOOD PO2 67.6 mmHg (80-100); ARTERIAL BLOOD TOTAL CO2 22.3 mmol/L (21-25)
[2018-10-05 10:05] LABS: ARTERIAL BLOOD FIO2 30%
[2018-10-05 10:06] LABS: ARTERIAL BLOOD PH 7.18 (7.35-7.45)
--- NOTE | 2018-10-05 11:27 | RADIOLOGY REPORT (SQ) ---
EXAM DESCRIPTION: CHEST SINGLE VIEW COMPLETED DATE/TIME: 10/05/2018 11:07 am REASON FOR STUDY: INTUBATION AND CENTRAL LINE PLACEMENT COMPARISON: Chest films 10/05/2018, 09/29/2018, 03/30/2018 EXAM PARAMETERS: NUMBER OF VIEWS: One view. TECHNIQUE: Single frontal radiographic view of the chest acquired. RADIATION DOSE: NA LIMITATIONS: None. FINDINGS: LUNGS AND PLEURA: No acute infiltrates. Chronic volume loss and parenchymal scarring in t he right upper lobes. No pneumothorax. No pleural effusions. MEDIASTINUM AND HILAR STRUCTURES: Fullness left hilum unchanged. HEART AND VASCULAR STRUCTURES: Heart normal in size. Normal vasculature. BONES: No acute findings. HARDWARE: Endotracheal tube tip 3 to 4 cm above the jana. Nasogastric tube tip and side port in th e stomach. Right jugular central line tip superior vena cava OTHER: No other significant finding. IMPRESSION: Endotracheal tube, nasogastric tube, right jugular central line in good positioning. No acute infiltrates Chronic volume loss and scarring in the right upper lung, stable fullness left hilum. TECHNICAL DOCUMENTATION: JOB ID: [id number] [employer]- All Rights Reserved Reading location - IP/workstation name: [email or web address]
--- NOTE | 2018-10-05 11:28 | RADIOLOGY REPORT (SQ) ---
EXAM DESCRIPTION: KUB/ABDOMEN (SINGLE VIEW) COMPLETED DATE/TIME: 10/05/2018 11:07 am REASON FOR STUDY: NG tube placement COMPARISON: None. NUMBER OF VIEWS: One view. TECHNIQUE: Supine radiographic image of the abdomen acquired. LIMITATIONS: For nasogastric tube placement, pelvis cropped from the field of view FINDINGS: Nasogastric tube tip and side port in the stomach. Grossly nonobstructive bowel gas patte rn. Lung bases are clear. IMPRESSION: Nasogastric tube tip and side port in the stomach TECHNICAL DOCUMENTATION: JOB ID: [id number] [employer]- All Rights Reserved Reading location - IP/workstation name: [email or web address]
[2018-10-05] MEDS ORDERED: NORMAL SALINE INJ/PF 0.9% 10 ML SDV IV PRN (11:50)
[2018-10-05] MEDS: NORMAL SALINE 1000 ML 1,000 ML with POTASSIUM CHLORIDE 20 MEQ, MAGNESIUM SULFATE 8 MEQ,... IV SCH ×4 (11:54)
[2018-10-05] MEDS: CEFTRIAXONE 1 GM/D5W RTU 1 GM/50 ML RTUPB IV SCH (11:54)
[2018-10-05] MEDS: PANTOPRAZOLE SODIUM 40 MG VIAL IV SCH ×2 (11:54→21:43)
[2018-10-05 11:56] LABS: ARTERIAL BLOOD BASE EXCESS -5.5 mmol/L; ARTERIAL BLOOD FIO2 50%; ARTERIAL BLOOD HCO3 20.6 mmol/L (20-24); ARTERIAL BLOOD O2 SATURATION 91.6 % (94-98); ARTERIAL BLOOD PCO2 43.1 mmHg (35-45); ARTERIAL BLOOD PO2 67.6 mmHg (80-100)
[2018-10-05 13:00] LABS: FLUID COLOR RED; FLUID SOURCE LUNG; FLUID TYPE BRONCHIAL WASH
[2018-10-05 13:02] LABS: FLUID APPEARANCE CLOUDY; FLUID VISCOSITY SLIGHTLY VISCOUS
[2018-10-05] MEDS: IPRATROPIUM/ALBUTEROL 0.5-2.5 MG/3 ML AMPUL NEB PRN ×2 (14:21→20:05)
[2018-10-05] MEDS ORDERED: SUCCINYLCHOLINE CHLORIDE INJ 200 MG/10 ML VIAL ONE (15:02)
[2018-10-05] MEDS ORDERED: NORMAL SALINE 1000 ML 1,000 ML IV PRN (16:03)
[2018-10-05] MEDS ORDERED: GLUCAGON,HUMAN RECOMB 1 MG INJ SUBCUT PRN (16:28)
[2018-10-05] MEDS ORDERED: DEXTROSE 50%-WATER 25 GM/50 ML DISP.SYRIN IV PRN ×2 (16:28)
[2018-10-05] MEDS ORDERED: DEXTROSE 40% GEL 15 GM TUBE PO PRN ×2 (16:28)
[2018-10-05] MEDS: THIAMINE HCL 100 MG TABLET PO SCH (19:02)
[2018-10-05] MEDS ORDERED: VANCOMYCIN HCL 0 MG in DEXTROSE 5%-WATER 250 ML IV NR (19:15)
--- NOTE | 2018-10-05 19:16 | PDOC PROGRESS REPORT ---
Subjective Progress Note for:: 10/05/18 Subjective:: Patient was obtunded, blood gas demonstrated respiratory acidosis with hypoxemia, she is transferred to ICU intubated on mechanical ventilation Reason For Visit: SEPSIS, UTI, AMS, ACUTE KIDNEY INJURY, DELIRIUM Physical Exam Vital Signs: Temp Pulse Resp BP Pulse Ox 99.9 F 109 H 22 H 89/60 L 100 10/05/18 18:00 10/05/18 18:00 10/05/18 18:00 10/05/18 18:00 10/05/18 18:00 Intake & Output 10/04/18 10/05/18 10/06/18 06:59 06:59 06:59 Intake Total 2592 1372 135 Output Total 300 725 175 Balance 2292 647 -40 Weight 75.2 kg 79.1 kg Eye exam: PRESENT: scleral icterus Respiratory exam: PRESENT: rhonchi Cardiovascular exam: PRESENT: +S1, +S2 GI/Abdominal exam: PRESENT: soft Results Laboratory Results: 10/04/18 04:24 10/05/18 01:44 10/04/18 10/05/18 10/05/18 23:48 01:44 01:44 Carbonic Acid HCO3/H2CO3 Ratio ABG pH ABG pCO2 ABG pO2 ABG HCO3 ABG O2 Saturation ABG Base Excess VBG pH 7.25 L VBG pCO2 57.9 VBG HCO3 24.5 VBG Base Excess -3.1 FiO2 Sodium 150.4 H Potassium 3.5 L Chloride 118 H Carbon Dioxide 25 Anion Gap 7 BUN 6 L Creatinine 0.87 Est GFR ( Amer) > 60 Est GFR (Non-Af Amer) > 60 Glucose 111 H Calcium 8.7 Ammonia 70.4 H Fluid Type Fluid Source Fluid Color Fluid Appearance Fluid Viscosity Fluid WBC Fluid RBC 10/05/18 10/05/18 10/05/18 08:07 09:59 11:30 Carbonic Acid Cancelled 1.69 H 1.30 HCO3/H2CO3 Ratio Cancelled 12:1 15:1 ABG pH Cancelled 7.18 L* 7.30 L ABG pCO2 Cancelled 56.3 H 43.1 ABG pO2 Cancelled 67.6 L 67.6 L ABG HCO3 Cancelled 20.5 20.6 ABG O2 Saturation Cancelled 88.3 L 91.6 L ABG Base Excess Cancelled -7.9 -5.5 VBG pH VBG pCO2 VBG HCO3 VBG Base Excess FiO2 Cancelled 30% 50% Sodium Potassium Chloride Carbon Dioxide Anion Gap BUN Creatinine Est GFR ( Amer) Est GFR (Non-Af Amer) Glucose Calcium Ammonia Fluid Type Fluid Source Fluid Color Fluid Appearance Fluid Viscosity Fluid WBC Fluid RBC 10/05/18 11:30 Carbonic Acid HCO3/H2CO3 Ratio ABG pH ABG pCO2 ABG pO2 ABG HCO3 ABG O2 Saturation ABG Base Excess VBG pH VBG pCO2 VBG HCO3 VBG Base Excess FiO2 Sodium Potassium Chloride Carbon Dioxide Anion Gap BUN Creatinine Est GFR ( Amer) Est GFR (Non-Af Amer) Glucose Calcium Ammonia Fluid Type BRONCHIAL WASH Fluid Source LUNG Fluid Color RED Fluid Appearance CLOUDY Fluid Viscosity SLIGHTLY VISCOUS Fluid WBC 5375 Fluid RBC 64975 09/29/18 09/29/18 09/29/18 10:44 10:44 12:59 Creatine Kinase Cancelled CK-MB (CK-2) Troponin I Cancelled 0.028 NT-Pro-B Natriuret Pep 09/29/18 09/29/18 09/29/18 12:59 15:30 15:30 Creatine Kinase 77 161 H CK-MB (CK-2) 2.69 Troponin I 0.028 NT-Pro-B Natriuret Pep 09/29/18 09/29/18 09/30/18 18:59 18:59 00:59 Creatine Kinase 201 H 197 H CK-MB (CK-2) 3.45 Troponin I 0.023 NT-Pro-B Natriuret Pep 09/30/18 10/01/18 10/03/18 00:59 04:13 04:50 Creatine Kinase CK-MB (CK-2) 2.94 Troponin I 0.021 NT-Pro-B Natriuret Pep 2270 H 3170 H Impressions: Head CT 10/03/18 00:00 IMPRESSION: CHRONIC CHANGES OF ATROPHY AND MICROVASCULAR ISCHEMIA. NO ACUTE PROCESS. EVIDENCE OF ACUTE STROKE: NO. KUB X-Ray 10/05/18 00:00 IMPRESSION: Nasogastric tube tip and side port in the stomach Chest X-Ray 10/05/18 09:42 IMPRESSION: Endotracheal tube, nasogastric tube, right jugular central line in good positioning. No acute infiltrates Chronic volume loss and scarring in the right upper lung, stable fullness left hilum. Assessment & Plan - Diagnosis (1) Septic shock Is this a current diagnosis for this admission?: Yes (2) UTI (urinary tract infection) Qualifiers: Urinary tract infection type: site unspecified Hematuria presence: with hematuria Qualified Code(s): N39.0 - Urinary tract infection, site not specified; R31.9 - Hematuria, unspecified Is this a current diagnosis for this admission?: Yes (3) Hypokalemia Is this a current diagnosis for this admission?: Yes (4) Hypomagnesemia Is this a current diagnosis for this admission?: Yes (5) Alcohol abuse Is this a current diagnosis for this admission?: Yes (6) Metabolic encephalopathy Is this a current diagnosis for this admission?: Yes (7) Hyperammonemia Is this a current diagnosis for this admission?: Yes (8) Alcohol withdrawal Qualifiers: Complication of substance-induced condition: with delirium Qualified Code(s): F10.231 - Alcohol dependence with withdrawal delirium Is this a current diagnosis for this admission?: Yes (9) Respiratory failure with hypoxia and hypercapnia Qualifiers: Chronicity: acute Qualified Code(s): J96.01 - Acute respiratory failure with hypoxia; J96.02 - Acute respiratory failure with hypercapnia Is this a current diagnosis for this admission?: Yes Plan: Patient intubated on mechanical ventilation (10) Nosocomial pneumonia Is this a current diagnosis for this admission?: Yes Plan: A bronchoscopy was done today by the farrowing worker there was purulent aspirate from the trachea start vancomycin to cover MRSA, start cefepime to cover Pseudomonas etc.
[2018-10-05] MEDS: CEFEPIME 2 GM/D5W RTU 2 GM/50 ML RTUPB IV SCH (21:00)
[2018-10-05] MEDS: VANCOMYCIN HCL 1,250 MG in DEXTROSE 5%-WATER 250 ML IV SCH (21:43)
[2018-10-06] MEDS: LORAZEPAM INJ 2 MG/1 ML VIAL (TAPER DOSING) IV SCH ×4 (01:35→19:51)
[2018-10-06] MEDS: PROPOFOL 1,000 MG/100 ML INFUS..BTL IV PRN ×3 (04:28→17:58)
[2018-10-06] MEDS: NORMAL SALINE 1000 ML 1,000 ML IV PRN ×2 (04:29→15:43)
[2018-10-06 04:37] LABS: HEMATOCRIT 25.3 % (36.0-47.0); HEMOGLOBIN 8.4 g/dL (12.0-15.5); MEAN CORPUSCULAR HEMOGLOBIN 35.8 pg (27.0-33.4); MEAN CORPUSCULAR HGB CONC 33.2 g/dL (32.0-36.0); MEAN CORPUSCULAR VOLUME 108 fl (80-97); PLATELET COUNT 122 10^3/uL (150-450); RED BLOOD COUNT 2.35 10^6/uL (3.72-5.28); RED CELL DISTRIBUTION WIDTH 26.1 % (11.5-14.0); WHITE BLOOD COUNT 14.4 10^3/uL (4.0-10.5)
[2018-10-06 04:41] LABS: ARTERIAL BLOOD BASE EXCESS -8.4 mmol/L; ARTERIAL BLOOD H2CO3 0.85 mmol/L (1.05-1.35); ARTERIAL BLOOD HCO3 15.9 mmol/L (20-24); ARTERIAL BLOOD O2 SATURATION 93.8 % (94-98); ARTERIAL BLOOD PCO2 28.4 mmHg (35-45); ARTERIAL BLOOD PH 7.37 (7.35-7.45); ARTERIAL BLOOD PO2 69.6 mmHg (80-100); ARTERIAL BLOOD TOTAL CO2 16.8 mmol/L (21-25)
[2018-10-06 04:44] LABS: ARTERIAL BLOOD FIO2 28%
[2018-10-06 04:49] LABS: ALANINE AMINOTRANSFERASE 28 U/L (9-52); ALBUMIN 1.9 g/dL (3.5-5.0); ALKALINE PHOSPHATASE 96 U/L (38-126); ANION GAP 7 (5-19); ASPARTATE AMINO TRANSFERASE 39 U/L (14-36); BILIRUBIN,DIRECT 1.5 mg/dL (0.0-0.4); BILIRUBIN,TOTAL 1.8 mg/dL (0.2-1.3); BLOOD UREA NITROGEN 7 mg/dL (7-20); CALCIUM 7.7 mg/dL (8.4-10.2); CARBON DIOXIDE 20 mmol/L (22-30); CHLORIDE 122 mmol/L (98-107); GLUCOSE 112 mg/dL (75-110); SODIUM 148.7 mmol/L (137-145); TOTAL PROTEIN 5.2 g/dL (6.3-8.2)
[2018-10-06 05:03] LABS: ANISOCYTOSIS 3+; PLATELET COMMENT DECREASED; POIKILOCYTOSIS 1+; POLYCHROMASIA 1+; TARGET CELLS 1+; TEAR DROP CELLS SLIGHT
[2018-10-06 05:11] LABS: POTASSIUM 2.8 mmol/L (3.6-5.0)
[2018-10-06] MEDS ORDERED: POTASSI CL 20 MEQ/50 ML RIDER 20 MEQ/50 ML RTUPB IV ONE (05:30)
[2018-10-06] MEDS ORDERED: MAGNESIUM SULFATE/D5W 1 GM/100 ML RTUPB IV ONE (05:30)
[2018-10-06] MEDS ORDERED: NOREPINEPHRINE BITARTRATE INJ/PF 4 MG/4 ML SDV IV ONE (06:03)
[2018-10-06] MEDS: MAGNESIUM SULFATE/D5W 1 GM/100 ML RTUPB IV SCH ×3 (06:14→07:54)
[2018-10-06] MEDS: DEXTROSE 5%-WATER 250 ML with NOREPINEPHRINE BITARTRATE 4 MG IV PRN ×2 (06:15)
[2018-10-06] MEDS: POTASSIUM CHLORIDE 20 MEQ/50 ML RTU IV SCH ×6 (06:15→19:41)
[2018-10-06] MEDS: CEFEPIME 2 GM/D5W RTU 2 GM/50 ML RTUPB IV SCH ×2 (07:53→21:10)
[2018-10-06 08:29] LABS: APPEARANCE,URINE SLIGHTLY-CLOUDY; BILIRUBIN,URINE NEGATIVE (NEGATIVE); COLOR,URINE AMBER; GLUCOSE, URINE NEGATIVE (NEGATIVE); KETONES,URINE NEGATIVE (NEGATIVE); LEUKOCYTE ESTERASE,URINE MODERATE (NEGATIVE); NITRITE,URINE NEGATIVE (NEGATIVE); PROTEIN,URINE 30 mg/dL (NEGATIVE); UROBILINOGEN,URINE NEGATIVE mg/dL (<2.0)
[2018-10-06] MEDS: IPRATROPIUM/ALBUTEROL 0.5-2.5 MG/3 ML AMPUL NEB PRN ×2 (08:34→19:40)
[2018-10-06 08:39] LABS: URINE AMPHETAMINES SCREEN NEGATIVE; URINE BARBITURATES SCREEN NEGATIVE; URINE BENZODIAZEPINES SCREEN NEGATIVE; URINE COCAINE SCREEN NEGATIVE; URINE MARIJUANA (THC) SCREEN NEGATIVE; URINE METHADONE SCREEN NEGATIVE; URINE PHENCYCLIDINE SCREEN NEGATIVE
[2018-10-06] MEDS: NORMAL SALINE 1000 ML 1,000 ML with POTASSIUM CHLORIDE 20 MEQ, MAGNESIUM SULFATE 8 MEQ,... IV SCH ×4 (08:49)
[2018-10-06] MEDS ORDERED: FUROSEMIDE INJ/PF 40 MG/4 ML SDV IV ONE (09:30)
--- NOTE | 2018-10-06 09:39 | RADIOLOGY REPORT (SQ) ---
EXAM DESCRIPTION: CHEST SINGLE VIEW COMPLETED DATE/TIME: 10/06/2018 7:00 am REASON FOR STUDY: pna/resp failure COMPARISON: Previous day. NUMBER OF VIEWS: One view. TECHNIQUE: Single frontal radiographic image of the chest acquired. LIMITATIONS: None. FINDINGS: LUNGS AND PLEURA: Increasing airspace opacity left lower lung. Postop changes right upper lobe. No pneumothorax. MEDIASTINUM AND HEART: Stable heart size and mediastinal structures. SUPPORT DEVICES: Appropriate location without change. BONY STRUCTURES: No acute findings. HARDWARE: None. OTHER: No other significant finding. IMPRESSION: Rehydration versus progressing pneumonia left lower lobe. No pneumothorax. Reading location - IP/workstation name: [email or web address]
[2018-10-06] MEDS: VANCOMYCIN HCL 1,250 MG in DEXTROSE 5%-WATER 250 ML IV SCH ×2 (10:33→21:10)
[2018-10-06] MEDS: THIAMINE HCL 100 MG TABLET NG SCH (10:33)
[2018-10-06] MEDS: PANTOPRAZOLE SODIUM 40 MG VIAL IV SCH ×2 (10:33→21:10)
[2018-10-06] MEDS: VASOPRESSIN INJ 20 UNIT/1 ML VIAL ONE ×2 (11:51→11:52)
[2018-10-06] MEDS: DEXTROSE 5%-WATER 250 ML with VASOPRESSIN 100 UNIT IV PRN ×2 (11:53)
--- NOTE | 2018-10-06 12:41 | EKG REPORT ---
SEVERITY:- ABNORMAL ECG - SINUS TACHYCARDIA ABERRANT COMPLEX, POSSIBLY SUPRAVENTRICULAR LOW VOLTAGE THROUGHOUT NONSPECIFIC T ABNORMALITIES, DIFFUSE LEADS : Confirmed by: Cinthia Powers MD 06-Oct-2018 12:39:48
[2018-10-06 15:45] LABS: ANION GAP 6 (5-19); BLOOD UREA NITROGEN 8 mg/dL (7-20); CALCIUM 7.9 mg/dL (8.4-10.2); CARBON DIOXIDE 18 mmol/L (22-30); CHLORIDE 122 mmol/L (98-107); GLUCOSE 123 mg/dL (75-110); SODIUM 146.4 mmol/L (137-145)
--- NOTE | 2018-10-06 20:34 | PDOC PROGRESS REPORT ---
Subjective Progress Note for:: 10/06/18 Subjective:: Patient seen by the bedside, she remained intubated on mechanical ventilation Reason For Visit: SEPSIS, UTI, AMS, ACUTE KIDNEY INJURY, DELIRIUM Physical Exam Vital Signs: Temp Pulse Resp BP Pulse Ox 99.1 F 94 22 H 107/79 92 10/06/18 19:33 10/06/18 19:40 10/06/18 19:40 10/06/18 18:00 10/06/18 19:40 Intake & Output 10/05/18 10/06/18 10/07/18 06:59 06:59 06:59 Intake Total 1372 1610 2138 Output Total 096 636 1537 Balance 647 1295 553 Weight 79.1 kg 79.9 kg Eye exam: PRESENT: PERRLA Respiratory exam: PRESENT: clear to auscultation dawna Cardiovascular exam: PRESENT: +S1, +S2 GI/Abdominal exam: PRESENT: soft Neurological exam: PRESENT: other - Sedated Results Laboratory Results: 10/06/18 04:22 10/06/18 15:10 10/06/18 10/06/18 10/06/18 04:22 04:22 04:22 WBC 14.4 H RBC 2.35 L Hgb 8.4 L Hct 25.3 L MCV 108 H MCH 35.8 H MCHC 33.2 RDW 26.1 H Plt Count 122 L Seg Neutrophils % Not Reportable Lymphocytes % Not Reportable Monocytes % Not Reportable Eosinophils % Not Reportable Basophils % Not Reportable Absolute Neutrophils Not Reportable Absolute Lymphocytes Not Reportable Absolute Monocytes Not Reportable Absolute Eosinophils Not Reportable Absolute Basophils Not Reportable Carbonic Acid 0.85 L HCO3/H2CO3 Ratio 18:1 ABG pH 7.37 ABG pCO2 28.4 L ABG pO2 69.6 L ABG HCO3 15.9 L ABG O2 Saturation 93.8 L ABG Base Excess -8.4 FiO2 28% Sodium 148.7 H Potassium 2.8 L* Chloride 122 H Carbon Dioxide 20 L Anion Gap 7 BUN 7 Creatinine 0.97 Est GFR ( Amer) > 60 Est GFR (Non-Af Amer) > 60 Glucose 112 H Lactic Acid Calcium 7.7 L Magnesium 1.2 L* Total Bilirubin 1.8 H AST 39 H ALT 28 Alkaline Phosphatase 96 Total Protein 5.2 L Albumin 1.9 L Urine Color Urine Appearance Urine pH Ur Specific Coy Urine Protein Urine Glucose (UA) Urine Ketones Urine Blood Urine Nitrite Ur Leukocyte Esterase Urine WBC (Auto) Urine RBC (Auto) 10/06/18 10/06/18 10/06/18 08:08 13:26 13:26 WBC RBC Hgb Hct MCV MCH MCHC RDW Plt Count Seg Neutrophils % Lymphocytes % Monocytes % Eosinophils % Basophils % Absolute Neutrophils Absolute Lymphocytes Absolute Monocytes Absolute Eosinophils Absolute Basophils Carbonic Acid HCO3/H2CO3 Ratio ABG pH ABG pCO2 ABG pO2 ABG HCO3 ABG O2 Saturation ABG Base Excess FiO2 Sodium Potassium Chloride Carbon Dioxide Anion Gap BUN Creatinine Est GFR ( Amer) Est GFR (Non-Af Amer) Glucose Lactic Acid Cancelled 3.0 H Calcium Magnesium Total Bilirubin AST ALT Alkaline Phosphatase Total Protein Albumin Urine Color JESS Urine Appearance SLIGHTLY-CLOUDY Urine pH 5.0 Ur Specific Coy 1.020 Urine Protein 30 H Urine Glucose (UA) NEGATIVE Urine Ketones NEGATIVE Urine Blood SMALL H Urine Nitrite NEGATIVE Ur Leukocyte Esterase MODERATE H Urine WBC (Auto) 62 Urine RBC (Auto) 5 10/06/18 10/06/18 15:10 18:27 WBC RBC Hgb Hct MCV MCH MCHC RDW Plt Count Seg Neutrophils % Lymphocytes % Monocytes % Eosinophils % Basophils % Absolute Neutrophils Absolute Lymphocytes Absolute Monocytes Absolute Eosinophils Absolute Basophils Carbonic Acid HCO3/H2CO3 Ratio ABG pH ABG pCO2 ABG pO2 ABG HCO3 ABG O2 Saturation ABG Base Excess FiO2 Sodium 146.4 H Potassium 3.0 L* Chloride 122 H Carbon Dioxide 18 L Anion Gap 6 BUN 8 Creatinine 0.99 Est GFR ( Amer) > 60 Est GFR (Non-Af Amer) 58 L Glucose 123 H Lactic Acid 2.1 Calcium 7.9 L Magnesium 1.9 Total Bilirubin AST ALT Alkaline Phosphatase Total Protein Albumin Urine Color Urine Appearance Urine pH Ur Specific Coy Urine Protein Urine Glucose (UA) Urine Ketones Urine Blood Urine Nitrite Ur Leukocyte Esterase Urine WBC (Auto) Urine RBC (Auto) 10/05/18 09:45 Tracheal Aspirate Gram Stain - Final 10/05/18 09:45 Tracheal Aspirate Sputum Culture - Final C.albicans/C.dubliniensis Greatly Reduced Normal Uzma 10/05/18 11:30 Bronchial Washings Gram Stain - Final 10/05/18 11:30 Bronchial Washings Bronchial Washings Culture - Final C.albicans/C.dubliniensis Greatly Reduced Normal Uzma 09/29/18 09/29/18 09/29/18 10:44 10:44 12:59 Creatine Kinase Cancelled CK-MB (CK-2) Troponin I Cancelled 0.028 NT-Pro-B Natriuret Pep 09/29/18 09/29/18 09/29/18 12:59 15:30 15:30 Creatine Kinase 77 161 H CK-MB (CK-2) 2.69 Troponin I 0.028 NT-Pro-B Natriuret Pep 09/29/18 09/29/18 09/30/18 18:59 18:59 00:59 Creatine Kinase 201 H 197 H CK-MB (CK-2) 3.45 Troponin I 0.023 NT-Pro-B Natriuret Pep 09/30/18 10/01/18 10/03/18 00:59 04:13 04:50 Creatine Kinase CK-MB (CK-2) 2.94 Troponin I 0.021 NT-Pro-B Natriuret Pep 2270 H 3170 H Impressions: Head CT 10/03/18 00:00 IMPRESSION: CHRONIC CHANGES OF ATROPHY AND MICROVASCULAR ISCHEMIA. NO ACUTE PROCESS. EVIDENCE OF ACUTE STROKE: NO. KUB X-Ray 10/05/18 00:00 IMPRESSION: Nasogastric tube tip and side port in the stomach Chest X-Ray 10/06/18 06:00 IMPRESSION: Rehydration versus progressing pneumonia left lower lobe. No pneumothorax. Assessment & Plan - Diagnosis (1) Septic shock Is this a current diagnosis for this admission?: Yes Plan: Patient with septic shock (2) UTI (urinary tract infection) Qualifiers: Urinary tract infection type: site unspecified Hematuria presence: with hematuria Qualified Code(s): N39.0 - Urinary tract infection, site not specified; R31.9 - Hematuria, unspecified Is this a current diagnosis for this admission?: Yes (3) Hypokalemia Is this a current diagnosis for this admission?: Yes Plan: replace K (4) Hypomagnesemia Is this a current diagnosis for this admission?: Yes (5) Alcohol abuse Is this a current diagnosis for this admission?: Yes (6) Metabolic encephalopathy Is this a current diagnosis for this admission?: Yes (7) Hyperammonemia Is this a current diagnosis for this admission?: Yes (8) Alcohol withdrawal Qualifiers: Complication of substance-induced condition: with delirium Qualified Code(s): F10.231 - Alcohol dependence with withdrawal delirium Is this a current diagnosis for this admission?: Yes (9) Respiratory failure with hypoxia and hypercapnia Qualifiers: Chronicity: acute Qualified Code(s): J96.01 - Acute respiratory failure with hypoxia; J96.02 - Acute respiratory failure with hypercapnia Is this a current diagnosis for this admission?: Yes Plan: Patient on mechanical ventilation (10) Nosocomial pneumonia Is this a current diagnosis for this admission?: Yes Plan: Bronchial washing was positive for gram positive cocci in clusters, patient already empirically on vancomycin (11) Hypotension Qualifiers: Hypotension type: unspecified hypotension type Qualified Code(s): I95.9 - Hypotension, unspecified Is this a current diagnosis for this admission?: Yes Plan: Blood pressure is low patient presently on intravenous norepinephrine and vasopressin
[2018-10-07] MEDS: DEXTROSE 5%-WATER 250 ML with NOREPINEPHRINE BITARTRATE 4 MG IV PRN ×2 (00:52)
[2018-10-07] MEDS: PROPOFOL 1,000 MG/100 ML INFUS..BTL IV PRN ×3 (00:52→18:35)
[2018-10-07] MEDS: LORAZEPAM INJ 2 MG/1 ML VIAL (TAPER DOSING) IV SCH ×3 (03:34→18:35)
[2018-10-07] MEDS: NORMAL SALINE 1000 ML 1,000 ML IV PRN ×3 (03:35→22:04)
[2018-10-07 06:47] LABS: ABSOLUTE BASOPHILS # (AUTO) 0.2 10^3/uL (0.0-0.2); ABSOLUTE EOSINOPHILS # (AUTO) 0.4 10^3/uL (0.0-0.6); ABSOLUTE LYMPHOCYTES (AUTO) 1.2 10^3/uL (0.5-4.7); ABSOLUTE MONOCYTES (AUTO) 0.6 10^3/uL (0.1-1.4); ABSOLUTE NEUT (AUTO) 12.4 10^3/uL (1.7-8.2); EOSINOPHILS % (AUTO) 2.9 % (0-6); LYMPHOCYTES % (AUTO) 8.1 % (13-45); MEAN CORPUSCULAR HEMOGLOBIN 35.1 pg (27.0-33.4); MEAN CORPUSCULAR HGB CONC 33.4 g/dL (32.0-36.0); MEAN CORPUSCULAR VOLUME 105 fl (80-97); MONOCYTES % (AUTO) 4.2 % (3-13); PLATELET COUNT 120 10^3/uL (150-450); RED BLOOD COUNT 2.58 10^6/uL (3.72-5.28); RED CELL DISTRIBUTION WIDTH 25.8 % (11.5-14.0); SEGMENTED NEUTROPHILS % (AUTO) 83.8 % (42-78); TOTAL CELLS COUNTED % (AUTO) 100 %; WHITE BLOOD COUNT 14.9 10^3/uL (4.0-10.5)
--- NOTE | 2018-10-07 06:50 | RADIOLOGY REPORT (SQ) ---
EXAM DESCRIPTION: X-ray single view chest. CLINICAL HISTORY: 53 years Female, resp failure COMPARISON: 10/06/2018 at 10/05/2018 TECHNIQUE: Single portable view of the chest performed on 10/07/2018 at 5:43 AM FINDINGS: The lungs are slightly hypoinflated. There is persistent patchy airspace disease in the left perihilar region and left inferior hemithorax. There is chronic scarring in the right lung apex. There is no evidence of a pneumothorax. The cardiac silhouette is normal in size and configuration. The mediastinal contours are normal. No acute osseous abnormality is identified. No focal soft tissue abnormalities are seen. Lines and tubes: The endotracheal tube, feeding tube and right IJ central venous catheter are stable. IMPRESSION: Overall, no significant change when compared to the most recent study.
[2018-10-07 07:13] LABS: ANISOCYTOSIS 3+; PLATELET COMMENT DECREASED; POIKILOCYTOSIS 1+; TARGET CELLS 1+; TEAR DROP CELLS SLIGHT
[2018-10-07 09:14] LABS: ARTERIAL BLOOD BASE EXCESS -7.1 mmol/L; ARTERIAL BLOOD H2CO3 0.75 mmol/L (1.05-1.35); ARTERIAL BLOOD HCO3 15.9 mmol/L (20-24); ARTERIAL BLOOD O2 SATURATION 97.5 % (94-98); ARTERIAL BLOOD PCO2 24.8 mmHg (35-45); ARTERIAL BLOOD PH 7.42 (7.35-7.45); ARTERIAL BLOOD PO2 93.7 mmHg (80-100); ARTERIAL BLOOD TOTAL CO2 16.6 mmol/L (21-25)
[2018-10-07 09:16] LABS: ARTERIAL BLOOD FIO2 40%
[2018-10-07] MEDS: NORMAL SALINE 1000 ML 1,000 ML with POTASSIUM CHLORIDE 20 MEQ, MAGNESIUM SULFATE 8 MEQ,... IV SCH ×4 (09:50)
[2018-10-07] MEDS: PANTOPRAZOLE SODIUM 40 MG VIAL IV SCH ×2 (09:51→22:01)
[2018-10-07] MEDS: CEFEPIME 2 GM/D5W RTU 2 GM/50 ML RTUPB IV SCH ×2 (09:51→22:01)
[2018-10-07] MEDS: VANCOMYCIN HCL 1,250 MG in DEXTROSE 5%-WATER 250 ML IV SCH (09:51)
[2018-10-07] MEDS: THIAMINE HCL 100 MG TABLET NG SCH (09:52)
[2018-10-07 10:07] LABS: ALANINE AMINOTRANSFERASE 23 U/L (9-52); ALBUMIN 1.8 g/dL (3.5-5.0); ALKALINE PHOSPHATASE 98 U/L (38-126); ANION GAP 7 (5-19); ASPARTATE AMINO TRANSFERASE 41 U/L (14-36); BILIRUBIN,DIRECT 1.6 mg/dL (0.0-0.4); BILIRUBIN,TOTAL 1.9 mg/dL (0.2-1.3); BLOOD UREA NITROGEN 9 mg/dL (7-20); CALCIUM 8.3 mg/dL (8.4-10.2); CARBON DIOXIDE 17 mmol/L (22-30); CHLORIDE 119 mmol/L (98-107); GLUCOSE 128 mg/dL (75-110); SODIUM 142.8 mmol/L (137-145); TOTAL PROTEIN 5.3 g/dL (6.3-8.2)
[2018-10-07 10:36] LABS: VANCOMYCIN,TROUGH 29.2 ug/mL (5.0-20.0)
[2018-10-07] MEDS: POTASSIUM CHLORIDE 20 MEQ/50 ML RTU IV SCH ×3 (13:57→18:35)
[2018-10-07] MEDS: DEXTROSE 5%-WATER 250 ML with VASOPRESSIN 100 UNIT IV PRN ×2 (16:06)
--- NOTE | 2018-10-07 21:46 | PDOC PROGRESS REPORT ---
Subjective Progress Note for:: 10/07/18 Subjective:: Patient seen by the bedside intubated on mechanical ventilation Reason For Visit: SEPSIS, UTI, AMS, ACUTE KIDNEY INJURY, DELIRIUM Physical Exam Vital Signs: Temp Pulse Resp BP Pulse Ox 98.4 F 93 22 H 101/74 100 10/07/18 19:41 10/07/18 18:00 10/07/18 19:41 10/07/18 19:41 10/07/18 20:44 Intake & Output 10/06/18 10/07/18 10/08/18 06:59 06:59 06:59 Intake Total 1610 4713 1743 Output Total 315 6255 975 Balance 1295 2078 768 Weight 79.9 kg 82.2 kg Eye exam: PRESENT: PERRLA Respiratory exam: PRESENT: other - Auscultation demonstrated equal air entry in both lung field Cardiovascular exam: PRESENT: +S1, +S2 GI/Abdominal exam: PRESENT: soft Neurological exam: PRESENT: altered Results Laboratory Results: 10/07/18 06:40 10/07/18 06:00 10/07/18 10/07/18 10/07/18 06:00 06:40 08:53 WBC 14.9 H RBC 2.58 L Hgb 9.0 L Hct 27.0 L MCV 105 H MCH 35.1 H MCHC 33.4 RDW 25.8 H Plt Count 120 L Seg Neutrophils % 83.8 H Lymphocytes % 8.1 L Monocytes % 4.2 Eosinophils % 2.9 Basophils % 1.0 Absolute Neutrophils 12.4 H Absolute Lymphocytes 1.2 Absolute Monocytes 0.6 Absolute Eosinophils 0.4 Absolute Basophils 0.2 Carbonic Acid 0.75 L HCO3/H2CO3 Ratio 21:1 ABG pH 7.42 ABG pCO2 24.8 L ABG pO2 93.7 ABG HCO3 15.9 L ABG O2 Saturation 97.5 ABG Base Excess -7.1 FiO2 40% Sodium 142.8 Potassium 3.0 L* Chloride 119 H Carbon Dioxide 17 L Anion Gap 7 BUN 9 Creatinine 1.09 Est GFR ( Amer) > 60 Est GFR (Non-Af Amer) 52 L Glucose 128 H Calcium 8.3 L Magnesium 1.7 Total Bilirubin 1.9 H AST 41 H ALT 23 Alkaline Phosphatase 98 Total Protein 5.3 L Albumin 1.8 L 10/05/18 11:30 Bronchial Washings Fungal Smear - Final 10/05/18 11:30 Bronchial Washings Fungal Smear - Final 10/05/18 11:30 Bronchial Washings AFB Smear Concentration - Final 10/05/18 11:30 Bronchial Washings Acid Fast Bacilli Smear - Final 09/29/18 09/29/18 09/29/18 10:44 10:44 12:59 Creatine Kinase Cancelled CK-MB (CK-2) Troponin I Cancelled 0.028 NT-Pro-B Natriuret Pep 09/29/18 09/29/18 09/29/18 12:59 15:30 15:30 Creatine Kinase 77 161 H CK-MB (CK-2) 2.69 Troponin I 0.028 NT-Pro-B Natriuret Pep 09/29/18 09/29/18 09/30/18 18:59 18:59 00:59 Creatine Kinase 201 H 197 H CK-MB (CK-2) 3.45 Troponin I 0.023 NT-Pro-B Natriuret Pep 09/30/18 10/01/18 10/03/18 00:59 04:13 04:50 Creatine Kinase CK-MB (CK-2) 2.94 Troponin I 0.021 NT-Pro-B Natriuret Pep 2270 H 3170 H Impressions: Head CT 10/03/18 00:00 IMPRESSION: CHRONIC CHANGES OF ATROPHY AND MICROVASCULAR ISCHEMIA. NO ACUTE PROCESS. EVIDENCE OF ACUTE STROKE: NO. KUB X-Ray 10/05/18 00:00 IMPRESSION: Nasogastric tube tip and side port in the stomach Chest X-Ray 10/07/18 06:00 IMPRESSION: Overall, no significant change when compared to the most recent study. Assessment & Plan - Diagnosis (1) Septic shock Is this a current diagnosis for this admission?: Yes (2) UTI (urinary tract infection) Qualifiers: Urinary tract infection type: site unspecified Hematuria presence: with hematuria Qualified Code(s): N39.0 - Urinary tract infection, site not specified; R31.9 - Hematuria, unspecified Is this a current diagnosis for this admission?: Yes (3) Hypokalemia Is this a current diagnosis for this admission?: Yes (4) Hypomagnesemia Is this a current diagnosis for this admission?: Yes (5) Alcohol abuse Is this a current diagnosis for this admission?: Yes (6) Metabolic encephalopathy Is this a current diagnosis for this admission?: Yes (7) Hyperammonemia Is this a current diagnosis for this admission?: Yes (8) Alcohol withdrawal Qualifiers: Complication of substance-induced condition: with delirium Qualified Code(s): F10.231 - Alcohol dependence with withdrawal delirium Is this a current diagnosis for this admission?: Yes (9) Respiratory failure with hypoxia and hypercapnia Qualifiers: Chronicity: acute Qualified Code(s): J96.01 - Acute respiratory failure with hypoxia; J96.02 - Acute respiratory failure with hypercapnia Is this a current diagnosis for this admission?: Yes Plan: Patient on mechanical ventilation (10) Nosocomial pneumonia Is this a current diagnosis for this admission?: Yes Plan: Bronchial washing was positive for gram positive cocci in clusters, patient already empirically on vancomycin (11) Hypotension Qualifiers: Hypotension type: unspecified hypotension type Qualified Code(s): I95.9 - Hypotension, unspecified Is this a current diagnosis for this admission?: Yes Plan: Blood pressure is low patient presently on intravenous norepinephrine and vasopressin
[2018-10-08] MEDS: PROPOFOL 1,000 MG/100 ML INFUS..BTL IV PRN ×3 (01:07→18:30)
[2018-10-08 04:52] LABS: ABSOLUTE BASOPHILS # (AUTO) 0.1 10^3/uL (0.0-0.2); ABSOLUTE EOSINOPHILS # (AUTO) 0.4 10^3/uL (0.0-0.6); ABSOLUTE LYMPHOCYTES (AUTO) 1.1 10^3/uL (0.5-4.7); ABSOLUTE MONOCYTES (AUTO) 0.7 10^3/uL (0.1-1.4); ABSOLUTE NEUT (AUTO) 12.9 10^3/uL (1.7-8.2); ARTERIAL BLOOD BASE EXCESS -9.3 mmol/L; ARTERIAL BLOOD H2CO3 0.82 mmol/L (1.05-1.35); ARTERIAL BLOOD O2 SATURATION 78.3 % (94-98); ARTERIAL BLOOD PCO2 27.4 mmHg (35-45); ARTERIAL BLOOD PH 7.36 (7.35-7.45); ARTERIAL BLOOD PO2 43.4 mmHg (80-100); ARTERIAL BLOOD TOTAL CO2 15.8 mmol/L (21-25); BASOPHILS % (AUTO) 0.5 % (0-2); EOSINOPHILS % (AUTO) 2.4 % (0-6); HEMATOCRIT 25.4 % (36.0-47.0); HEMOGLOBIN 8.5 g/dL (12.0-15.5); LYMPHOCYTES % (AUTO) 7.5 % (13-45); MEAN CORPUSCULAR HEMOGLOBIN 35.8 pg (27.0-33.4); MEAN CORPUSCULAR HGB CONC 33.4 g/dL (32.0-36.0); MEAN CORPUSCULAR VOLUME 107 fl (80-97); MONOCYTES % (AUTO) 4.3 % (3-13); PLATELET COUNT 111 10^3/uL (150-450); RED BLOOD COUNT 2.36 10^6/uL (3.72-5.28); RED CELL DISTRIBUTION WIDTH 25.7 % (11.5-14.0); SEGMENTED NEUTROPHILS % (AUTO) 85.3 % (42-78); TOTAL CELLS COUNTED % (AUTO) 100 %; WHITE BLOOD COUNT 15.1 10^3/uL (4.0-10.5)
[2018-10-08 04:53] LABS: ARTERIAL BLOOD FIO2 35%
[2018-10-08 05:10] LABS: ANION GAP 9 (5-19); BLOOD UREA NITROGEN 10 mg/dL (7-20); CALCIUM 8.7 mg/dL (8.4-10.2); CARBON DIOXIDE 15 mmol/L (22-30); CHLORIDE 120 mmol/L (98-107); GLUCOSE 114 mg/dL (75-110); POTASSIUM 3.5 mmol/L (3.6-5.0); SODIUM 143.6 mmol/L (137-145)
[2018-10-08 05:13] LABS: ANISOCYTOSIS 3+; POIKILOCYTOSIS 2+; POLYCHROMASIA 2+; TARGET CELLS 1+; TEAR DROP CELLS 1+
[2018-10-08 05:14] LABS: PLATELET COMMENT DECREASED
[2018-10-08] MEDS: LORAZEPAM INJ 2 MG/1 ML VIAL (TAPER DOSING) IV SCH ×2 (06:52→18:27)
[2018-10-08] MEDS: NORMAL SALINE 1000 ML 1,000 ML IV PRN ×2 (06:53→20:02)
[2018-10-08] MEDS: NORMAL SALINE 1000 ML 1,000 ML with POTASSIUM CHLORIDE 20 MEQ, MAGNESIUM SULFATE 8 MEQ,... IV SCH ×4 (09:07)
[2018-10-08] MEDS: CEFEPIME 2 GM/D5W RTU 2 GM/50 ML RTUPB IV SCH ×2 (09:07→20:06)
[2018-10-08] MEDS: PANTOPRAZOLE SODIUM 40 MG VIAL IV SCH ×2 (09:07→22:24)
[2018-10-08] MEDS: THIAMINE HCL 100 MG TABLET NG SCH (09:08)
--- NOTE | 2018-10-08 12:14 | RADIOLOGY REPORT (SQ) ---
EXAM DESCRIPTION: CHEST SINGLE VIEW COMPLETED DATE/TIME: 10/08/2018 7:31 am REASON FOR STUDY: PNA COMPARISON: None. NUMBER OF VIEWS: One view. TECHNIQUE: Single frontal radiographic image of the chest acquired. LIMITATIONS: None. FINDINGS: LUNGS AND PLEURA: Airspace disease right upper lobe and left lower lobe with improved aera tion since yesterday. No pneumothorax. MEDIASTINUM AND HEART: Stable heart size and mediastinal structures. SUPPORT DEVICES: Appropriate location without change. BONY STRUCTURES: No acute findings. HARDWARE: None. OTHER: No other significant finding. IMPRESSION: Improving pneumonia. Reading location - IP/workstation name: [email or web address]
--- NOTE | 2018-10-08 17:57 | PDOC PROGRESS REPORT ---
Subjective Progress Note for:: 10/08/18 Subjective:: Patient is intubated still on mechanical ventilation Reason For Visit: SEPSIS, UTI, AMS, ACUTE KIDNEY INJURY, DELIRIUM Physical Exam Vital Signs: Temp Pulse Resp BP Pulse Ox 97.5 F 83 22 H 96/74 L 100 10/08/18 16:00 10/08/18 16:00 10/08/18 16:00 10/08/18 16:00 10/08/18 16:09 Intake & Output 10/07/18 10/08/18 10/09/18 06:59 06:59 07:59 Intake Total 4713 4977 100 Output Total 2635 1270 275 Balance 2078 3707 -175 Weight 82.2 kg 84.9 kg General appearance: PRESENT: no acute distress Eye exam: PRESENT: PERRLA Respiratory exam: PRESENT: clear to auscultation dawna Cardiovascular exam: PRESENT: +S1, +S2 GI/Abdominal exam: PRESENT: soft Neurological exam: PRESENT: alert Results Laboratory Results: 10/08/18 04:16 10/08/18 04:16 10/07/18 10/08/18 10/08/18 23:25 04:16 04:16 WBC RBC Hgb Hct MCV MCH MCHC RDW Plt Count Seg Neutrophils % Lymphocytes % Monocytes % Eosinophils % Basophils % Absolute Neutrophils Absolute Lymphocytes Absolute Monocytes Absolute Eosinophils Absolute Basophils Carbonic Acid 0.82 L HCO3/H2CO3 Ratio 18:1 ABG pH 7.36 ABG pCO2 27.4 L ABG pO2 43.4 L ABG HCO3 15.0 L ABG O2 Saturation 78.3 L ABG Base Excess -9.3 FiO2 35% Sodium 143.6 Potassium 3.6 3.5 L Chloride 120 H Carbon Dioxide 15 L Anion Gap 9 BUN 10 Creatinine 1.05 Est GFR ( Amer) > 60 Est GFR (Non-Af Amer) 54 L Glucose 114 H Calcium 8.7 Magnesium 1.6 10/08/18 04:16 WBC 15.1 H RBC 2.36 L Hgb 8.5 L Hct 25.4 L MCV 107 H MCH 35.8 H MCHC 33.4 RDW 25.7 H Plt Count 111 L Seg Neutrophils % 85.3 H Lymphocytes % 7.5 L Monocytes % 4.3 Eosinophils % 2.4 Basophils % 0.5 Absolute Neutrophils 12.9 H Absolute Lymphocytes 1.1 Absolute Monocytes 0.7 Absolute Eosinophils 0.4 Absolute Basophils 0.1 Carbonic Acid HCO3/H2CO3 Ratio ABG pH ABG pCO2 ABG pO2 ABG HCO3 ABG O2 Saturation ABG Base Excess FiO2 Sodium Potassium Chloride Carbon Dioxide Anion Gap BUN Creatinine Est GFR ( Amer) Est GFR (Non-Af Amer) Glucose Calcium Magnesium 09/29/18 09/29/18 09/29/18 10:44 10:44 12:59 Creatine Kinase Cancelled CK-MB (CK-2) Troponin I Cancelled 0.028 NT-Pro-B Natriuret Pep 09/29/18 09/29/18 09/29/18 12:59 15:30 15:30 Creatine Kinase 77 161 H CK-MB (CK-2) 2.69 Troponin I 0.028 NT-Pro-B Natriuret Pep 09/29/18 09/29/18 09/30/18 18:59 18:59 00:59 Creatine Kinase 201 H 197 H CK-MB (CK-2) 3.45 Troponin I 0.023 NT-Pro-B Natriuret Pep 09/30/18 10/01/18 10/03/18 00:59 04:13 04:50 Creatine Kinase CK-MB (CK-2) 2.94 Troponin I 0.021 NT-Pro-B Natriuret Pep 2270 H 3170 H Impressions: Head CT 10/03/18 00:00 IMPRESSION: CHRONIC CHANGES OF ATROPHY AND MICROVASCULAR ISCHEMIA. NO ACUTE PROCESS. EVIDENCE OF ACUTE STROKE: NO. KUB X-Ray 10/05/18 00:00 IMPRESSION: Nasogastric tube tip and side port in the stomach Chest X-Ray 10/08/18 06:00 IMPRESSION: Improving pneumonia. Assessment & Plan - Diagnosis (1) Septic shock Is this a current diagnosis for this admission?: Yes (2) UTI (urinary tract infection) Qualifiers: Urinary tract infection type: site unspecified Hematuria presence: with hematuria Qualified Code(s): N39.0 - Urinary tract infection, site not specified; R31.9 - Hematuria, unspecified Is this a current diagnosis for this admission?: Yes (3) Hypokalemia Is this a current diagnosis for this admission?: Yes (4) Hypomagnesemia Is this a current diagnosis for this admission?: Yes (5) Alcohol abuse Is this a current diagnosis for this admission?: Yes (6) Metabolic encephalopathy Is this a current diagnosis for this admission?: Yes (7) Hyperammonemia Is this a current diagnosis for this admission?: Yes (8) Alcohol withdrawal Qualifiers: Complication of substance-induced condition: with delirium Qualified Code(s): F10.231 - Alcohol dependence with withdrawal delirium Is this a current diagnosis for this admission?: Yes (9) Respiratory failure with hypoxia and hypercapnia Qualifiers: Chronicity: acute Qualified Code(s): J96.01 - Acute respiratory failure with hypoxia; J96.02 - Acute respiratory failure with hypercapnia Is this a current diagnosis for this admission?: Yes (10) Nosocomial pneumonia Is this a current diagnosis for this admission?: Yes (11) Hypotension Qualifiers: Hypotension type: unspecified hypotension type Qualified Code(s): I95.9 - Hypotension, unspecified Is this a current diagnosis for this admission?: Yes - Plan Summary Plan Summary: Continue treatment
[2018-10-09 05:33] LABS: ARTERIAL BLOOD H2CO3 0.89 mmol/L (1.05-1.35); ARTERIAL BLOOD HCO3 14.2 mmol/L (20-24); ARTERIAL BLOOD O2 SATURATION 61.7 % (94-98); ARTERIAL BLOOD PCO2 29.5 mmHg (35-45); ARTERIAL BLOOD TOTAL CO2 15.1 mmol/L (21-25)
[2018-10-09 05:37] LABS: ARTERIAL BLOOD FIO2 35%
[2018-10-09 05:38] LABS: ARTERIAL BLOOD PO2 34.7 mmHg (80-100)
[2018-10-09 05:51] LABS: ANION GAP 8 (5-19); BLOOD UREA NITROGEN 13 mg/dL (7-20); CALCIUM 8.8 mg/dL (8.4-10.2); CARBON DIOXIDE 13 mmol/L (22-30); CHLORIDE 122 mmol/L (98-107); GLUCOSE 94 mg/dL (75-110); PHOSPHORUS 3.6 mg/dL (2.5-4.5); POTASSIUM 3.4 mmol/L (3.6-5.0); SODIUM 143.3 mmol/L (137-145)
[2018-10-09] MEDS: PROPOFOL 1,000 MG/100 ML INFUS..BTL IV PRN ×2 (06:12→14:50)
--- NOTE | 2018-10-09 09:48 | RADIOLOGY REPORT (SQ) ---
EXAM DESCRIPTION: CHEST SINGLE VIEW COMPLETED DATE/TIME: 10/09/2018 6:51 am REASON FOR STUDY: resp failure sepsis COMPARISON: 10/08/2018 NUMBER OF VIEWS: One view. TECHNIQUE: Single frontal radiographic image of the chest acquired. LIMITATIONS: None. FINDINGS: LUNGS AND PLEURA: Residual airspace disease left lower lobe and right upper lobe without s ignificant change. No pneumothorax. MEDIASTINUM AND HEART: Stable heart size and mediastinal structures. SUPPORT DEVICES: Appropriate location without change. BONY STRUCTURES: No acute findings. HARDWARE: None. OTHER: No other significant finding. IMPRESSION: No significant change. No pneumothorax. Reading location - IP/workstation name: [email or web address]
[2018-10-09] MEDS: THIAMINE HCL 100 MG TABLET NG SCH (11:41)
[2018-10-09] MEDS: CEFEPIME 2 GM/D5W RTU 2 GM/50 ML RTUPB IV SCH ×2 (11:41→20:48)
[2018-10-09] MEDS: NORMAL SALINE 1000 ML 1,000 ML with POTASSIUM CHLORIDE 20 MEQ, MAGNESIUM SULFATE 8 MEQ,... IV SCH ×4 (11:43)
--- NOTE | 2018-10-09 12:25 | PDOC PROGRESS REPORT ---
Subjective Progress Note for:: 10/09/18 Subjective:: Patient remained intubated Reason For Visit: SEPSIS, UTI, AMS, ACUTE KIDNEY INJURY, DELIRIUM Physical Exam Vital Signs: Temp Pulse Resp BP Pulse Ox 96.8 F L 88 20 100/74 94 10/09/18 08:00 10/09/18 10:00 10/09/18 10:00 10/09/18 10:00 10/09/18 11:28 Intake & Output 10/08/18 10/09/18 10/10/18 05:59 06:59 06:59 Intake Total Output Total 45 Balance -45 Weight Eye exam: PRESENT: PERRLA Respiratory exam: PRESENT: clear to auscultation dawna Cardiovascular exam: PRESENT: +S1, +S2 GI/Abdominal exam: PRESENT: soft Results Laboratory Results: 10/08/18 04:16 10/09/18 04:50 10/09/18 10/09/18 04:50 04:50 Carbonic Acid 0.89 L HCO3/H2CO3 Ratio 15:1 ABG pH 7.30 L ABG pCO2 29.5 L ABG pO2 34.7 L* ABG HCO3 14.2 L ABG O2 Saturation 61.7 L ABG Base Excess -11.0 FiO2 35% Sodium 143.3 Potassium 3.4 L Chloride 122 H Carbon Dioxide 13 L Anion Gap 8 BUN 13 Creatinine 1.05 Est GFR ( Amer) > 60 Est GFR (Non-Af Amer) 54 L Glucose 94 Calcium 8.8 Phosphorus 3.6 Magnesium 1.6 09/29/18 09/29/18 09/29/18 10:44 10:44 12:59 Creatine Kinase Cancelled CK-MB (CK-2) Troponin I Cancelled 0.028 NT-Pro-B Natriuret Pep 09/29/18 09/29/18 09/29/18 12:59 15:30 15:30 Creatine Kinase 77 161 H CK-MB (CK-2) 2.69 Troponin I 0.028 NT-Pro-B Natriuret Pep 09/29/18 09/29/18 09/30/18 18:59 18:59 00:59 Creatine Kinase 201 H 197 H CK-MB (CK-2) 3.45 Troponin I 0.023 NT-Pro-B Natriuret Pep 09/30/18 10/01/18 10/03/18 00:59 04:13 04:50 Creatine Kinase CK-MB (CK-2) 2.94 Troponin I 0.021 NT-Pro-B Natriuret Pep 2270 H 3170 H 10/09/18 04:50 Creatine Kinase CK-MB (CK-2) Troponin I NT-Pro-B Natriuret Pep 630 Impressions: Head CT 10/03/18 00:00 IMPRESSION: CHRONIC CHANGES OF ATROPHY AND MICROVASCULAR ISCHEMIA. NO ACUTE PROCESS. EVIDENCE OF ACUTE STROKE: NO. KUB X-Ray 10/05/18 00:00 IMPRESSION: Nasogastric tube tip and side port in the stomach Chest X-Ray 10/09/18 06:00 IMPRESSION: No significant change. No pneumothorax. Assessment & Plan - Diagnosis (1) Septic shock Is this a current diagnosis for this admission?: Yes (2) UTI (urinary tract infection) Qualifiers: Urinary tract infection type: site unspecified Hematuria presence: with hematuria Qualified Code(s): N39.0 - Urinary tract infection, site not specified; R31.9 - Hematuria, unspecified Is this a current diagnosis for this admission?: Yes (3) Hypokalemia Is this a current diagnosis for this admission?: Yes (4) Hypomagnesemia Is this a current diagnosis for this admission?: Yes (5) Alcohol abuse Is this a current diagnosis for this admission?: Yes (6) Metabolic encephalopathy Is this a current diagnosis for this admission?: Yes (7) Hyperammonemia Is this a current diagnosis for this admission?: Yes (8) Alcohol withdrawal Qualifiers: Complication of substance-induced condition: with delirium Qualified Code (s): F10.231 - Alcohol dependence with withdrawal delirium Is this a current diagnosis for this admission?: Yes (9) Respiratory failure with hypoxia and hypercapnia Qualifiers: Chronicity: acute Qualified Code(s): J96.01 - Acute respiratory failure with hypoxia; J96.02 - Acute respiratory failure with hypercapnia Is this a current diagnosis for this admission?: Yes Plan: Patient on mechanical ventilation (10) Nosocomial pneumonia Is this a current diagnosis for this admission?: Yes Plan: Bronchial washing was positive for gram positive cocci in clusters, patient already empirically on vancomycin (11) Hypotension Qualifiers: Hypotension type: unspecified hypotension type Qualified Code(s): I95.9 - Hypotension, unspecified Is this a current diagnosis for this admission?: Yes (12) Gastroparesis Is this a current diagnosis for this admission?: Yes Plan: Start reglan 5MG IV Q8H
[2018-10-09] MEDS: FUROSEMIDE INJ/PF 40 MG/4 ML SDV IV SCH (14:39)
[2018-10-09] MEDS: METOCLOPRAMIDE HCL INJ/PF 10 MG/2 ML SDV IV SCH ×3 (14:39→22:23)
[2018-10-09] MEDS: NORMAL SALINE 1000 ML 1,000 ML IV PRN (14:40)
[2018-10-09 19:27] LABS: ABSOLUTE EOSINOPHILS # (AUTO) 0.5 10^3/uL (0.0-0.6); ABSOLUTE LYMPHOCYTES (AUTO) 1.4 10^3/uL (0.5-4.7); ABSOLUTE MONOCYTES (AUTO) 0.7 10^3/uL (0.1-1.4); ABSOLUTE NEUT (AUTO) 10.9 10^3/uL (1.7-8.2); BASOPHILS % (AUTO) 0.4 % (0-2); EOSINOPHILS % (AUTO) 3.9 % (0-6); HEMATOCRIT 24.9 % (36.0-47.0); HEMOGLOBIN 8.1 g/dL (12.0-15.5); LYMPHOCYTES % (AUTO) 10.1 % (13-45); MEAN CORPUSCULAR HEMOGLOBIN 34.6 pg (27.0-33.4); MEAN CORPUSCULAR HGB CONC 32.4 g/dL (32.0-36.0); MEAN CORPUSCULAR VOLUME 107 fl (80-97); MONOCYTES % (AUTO) 4.9 % (3-13); PLATELET COUNT 116 10^3/uL (150-450); RED BLOOD COUNT 2.34 10^6/uL (3.72-5.28); RED CELL DISTRIBUTION WIDTH 24.9 % (11.5-14.0); SEGMENTED NEUTROPHILS % (AUTO) 80.7 % (42-78); TOTAL CELLS COUNTED % (AUTO) 100 %; WHITE BLOOD COUNT 13.4 10^3/uL (4.0-10.5)
[2018-10-09 19:57] LABS: ANISOCYTOSIS 3+; TARGET CELLS 1+; TEAR DROP CELLS 1+
[2018-10-09 19:58] LABS: PLATELET COMMENT DECREASED; POIKILOCYTOSIS 2+; POLYCHROMASIA 1+
[2018-10-10] MEDS: NORMAL SALINE 1000 ML 1,000 ML IV PRN ×2 (00:31→18:27)
[2018-10-10] MEDS: PROPOFOL 1,000 MG/100 ML INFUS..BTL IV PRN ×3 (01:04→19:23)
[2018-10-10] MEDS: DEXTROSE 5%-WATER 250 ML with VASOPRESSIN 100 UNIT IV PRN ×4 (01:05→18:00)
[2018-10-10 05:10] LABS: ABSOLUTE BASOPHILS # (AUTO) 0.1 10^3/uL (0.0-0.2); ABSOLUTE EOSINOPHILS # (AUTO) 0.5 10^3/uL (0.0-0.6); ABSOLUTE LYMPHOCYTES (AUTO) 1.4 10^3/uL (0.5-4.7); ABSOLUTE MONOCYTES (AUTO) 0.7 10^3/uL (0.1-1.4); ABSOLUTE NEUT (AUTO) 10.8 10^3/uL (1.7-8.2); BASOPHILS % (AUTO) 0.7 % (0-2); EOSINOPHILS % (AUTO) 3.5 % (0-6); HEMATOCRIT 24.1 % (36.0-47.0); LYMPHOCYTES % (AUTO) 10.2 % (13-45); MEAN CORPUSCULAR HEMOGLOBIN 35.6 pg (27.0-33.4); MEAN CORPUSCULAR HGB CONC 33.2 g/dL (32.0-36.0); MEAN CORPUSCULAR VOLUME 107 fl (80-97); MONOCYTES % (AUTO) 5.3 % (3-13); PLATELET COUNT 114 10^3/uL (150-450); RED BLOOD COUNT 2.25 10^6/uL (3.72-5.28); RED CELL DISTRIBUTION WIDTH 25.4 % (11.5-14.0); SEGMENTED NEUTROPHILS % (AUTO) 80.3 % (42-78); TOTAL CELLS COUNTED % (AUTO) 100 %; WHITE BLOOD COUNT 13.4 10^3/uL (4.0-10.5)
[2018-10-10] MEDS: METOCLOPRAMIDE HCL INJ/PF 10 MG/2 ML SDV IV SCH ×3 (05:23→21:42)
[2018-10-10 05:31] LABS: ANISOCYTOSIS 3+; BURR CELLS 1+; OVALOCYTES 1+; PLATELET COMMENT ADEQUATE; POIKILOCYTOSIS 3+; SCHISTOCYTES SLIGHT; TARGET CELLS 1+; TOXIC GRANULATION SLIGHT
[2018-10-10 05:49] LABS: ANION GAP 7 (5-19); BLOOD UREA NITROGEN 16 mg/dL (7-20); CARBON DIOXIDE 13 mmol/L (22-30); CHLORIDE 123 mmol/L (98-107); GLUCOSE 120 mg/dL (75-110); POTASSIUM 3.1 mmol/L (3.6-5.0); SODIUM 143.2 mmol/L (137-145)
[2018-10-10 06:48] LABS: ARTERIAL BLOOD BASE EXCESS -11.1 mmol/L; ARTERIAL BLOOD H2CO3 0.74 mmol/L (1.05-1.35); ARTERIAL BLOOD HCO3 13.2 mmol/L (20-24); ARTERIAL BLOOD O2 SATURATION 94.1 % (94-98); ARTERIAL BLOOD PCO2 24.6 mmHg (35-45); ARTERIAL BLOOD PH 7.35 (7.35-7.45); ARTERIAL BLOOD PO2 71.5 mmHg (80-100)
[2018-10-10 06:49] LABS: ARTERIAL BLOOD FIO2 30%
[2018-10-10] MEDS: CEFEPIME 2 GM/D5W RTU 2 GM/50 ML RTUPB IV SCH ×2 (08:24→21:42)
--- NOTE | 2018-10-10 08:28 | RADIOLOGY REPORT (SQ) ---
EXAM DESCRIPTION: CHEST SINGLE VIEW COMPLETED DATE/TIME: 10/10/2018 6:59 am REASON FOR STUDY: resp failure COMPARISON: 10/09/2018. FINDINGS: Single-view chest AP portable upright timed approximately 0650 hours in PACs. Appropriate endotracheal and nasogastric tubes and right IJ line, stable. Persistent scarring and pleural thickening in the right lung. Persistent opacity in the left base. Stable chest overall. TECHNICAL DOCUMENTATION: JOB ID: [id number] Reading location - IP/workstation name: [email or web address]PERATORL[facility] [email or web address]
[2018-10-10] MEDS: POTASSIUM CHLORIDE 20 MEQ/50 ML RTU IV SCH ×3 (08:29→23:16)
[2018-10-10] MEDS: NORMAL SALINE 1000 ML 1,000 ML with POTASSIUM CHLORIDE 20 MEQ, MAGNESIUM SULFATE 8 MEQ,... IV SCH ×4 (08:30)
[2018-10-10] MEDS: THIAMINE HCL 100 MG TABLET NG SCH (10:44)
[2018-10-10] MEDS: FUROSEMIDE INJ/PF 40 MG/4 ML SDV IV SCH (10:44)
[2018-10-10 12:18] LABS: VANCOMYCIN,TROUGH 17.3 ug/mL (5.0-20.0)
[2018-10-10] MEDS: VANCOMYCIN HCL 500 MG in DEXTROSE 5%-WATER 100 ML IV SCH (17:45)
[2018-10-10 19:14] LABS: ANION GAP 5 (5-19); BLOOD UREA NITROGEN 17 mg/dL (7-20); CALCIUM 8.9 mg/dL (8.4-10.2); CARBON DIOXIDE 14 mmol/L (22-30); CHLORIDE 123 mmol/L (98-107); GLUCOSE 112 mg/dL (75-110); POTASSIUM 3.4 mmol/L (3.6-5.0); SODIUM 142.3 mmol/L (137-145)
--- NOTE | 2018-10-10 22:38 | PDOC PROGRESS REPORT ---
Subjective Progress Note for:: 10/10/18 Subjective:: Patient intubated Reason For Visit: SEPSIS, UTI, AMS, ACUTE KIDNEY INJURY, DELIRIUM Physical Exam Vital Signs: Temp Pulse Resp BP Pulse Ox 97.7 F 84 14 117/83 98 10/10/18 21:46 10/10/18 18:00 10/10/18 18:37 10/10/18 18:37 10/10/18 21:15 Intake & Output 10/09/18 10/10/18 10/11/18 06:59 06:59 06:59 Intake Total 2448 2012 Output Total 1819 1675 Balance 628 338 Weight 89.1 kg Eye exam: PRESENT: PERRLA Respiratory exam: PRESENT: clear to auscultation dawna Cardiovascular exam: PRESENT: +S1, +S2 Results Laboratory Results: 10/10/18 04:48 10/10/18 16:34 10/10/18 10/10/18 10/10/18 04:34 04:48 06:37 WBC 13.4 H RBC 2.25 L Hgb 8.0 L Hct 24.1 L MCV 107 H MCH 35.6 H MCHC 33.2 RDW 25.4 H Plt Count 114 L Seg Neutrophils % 80.3 H Lymphocytes % 10.2 L Monocytes % 5.3 Eosinophils % 3.5 Basophils % 0.7 Absolute Neutrophils 10.8 H Absolute Lymphocytes 1.4 Absolute Monocytes 0.7 Absolute Eosinophils 0.5 Absolute Basophils 0.1 Carbonic Acid 0.74 L HCO3/H2CO3 Ratio 17:1 ABG pH 7.35 ABG pCO2 24.6 L ABG pO2 71.5 L ABG HCO3 13.2 L ABG O2 Saturation 94.1 ABG Base Excess -11.1 FiO2 30% Sodium 143.2 Potassium 3.1 L Chloride 123 H Carbon Dioxide 13 L Anion Gap 7 BUN 16 Creatinine 1.28 H Est GFR ( Amer) 52 L Est GFR (Non-Af Amer) 43 L Glucose 120 H Calcium 9.0 Magnesium 1.7 10/10/18 16:34 WBC RBC Hgb Hct MCV MCH MCHC RDW Plt Count Seg Neutrophils % Lymphocytes % Monocytes % Eosinophils % Basophils % Absolute Neutrophils Absolute Lymphocytes Absolute Monocytes Absolute Eosinophils Absolute Basophils Carbonic Acid HCO3/H2CO3 Ratio ABG pH ABG pCO2 ABG pO2 ABG HCO3 ABG O2 Saturation ABG Base Excess FiO2 Sodium 142.3 Potassium 3.4 L Chloride 123 H Carbon Dioxide 14 L Anion Gap 5 BUN 17 Creatinine 1.36 H Est GFR ( Amer) 49 L Est GFR (Non-Af Amer) 40 L Glucose 112 H Calcium 8.9 Magnesium 09/29/18 09/29/18 09/29/18 10:44 10:44 12:59 Creatine Kinase Cancelled CK-MB (CK-2) Troponin I Cancelled 0.028 NT-Pro-B Natriuret Pep 09/29/18 09/29/18 09/29/18 12:59 15:30 15:30 Creatine Kinase 77 161 H CK-MB (CK-2) 2.69 Troponin I 0.028 NT-Pro-B Natriuret Pep 09/29/18 09/29/18 09/30/18 18:59 18:59 00:59 Creatine Kinase 201 H 197 H CK-MB (CK-2) 3.45 Troponin I 0.023 NT-Pro-B Natriuret Pep 09/30/18 10/01/18 10/03/18 00:59 04:13 04:50 Creatine Kinase CK-MB (CK-2) 2.94 Troponin I 0.021 NT-Pro-B Natriuret Pep 2270 H 3170 H 10/09/18 04:50 Creatine Kinase CK-MB (CK-2) Troponin I NT-Pro-B Natriuret Pep 630 Impressions: Head CT 10/03/18 00:00 IMPRESSION: CHRONIC CHANGES OF ATROPHY AND MICROVASCULAR ISCHEMIA. NO ACUTE PROCESS. EVIDENCE OF ACUTE STROKE: NO. KUB X-Ray 10/05/18 00:00 IMPRESSION: Nasogastric tube tip and side port in the stomach Assessment & Plan - Diagnosis (1) Septic shock Is this a current diagnosis for this admission?: Yes (2) UTI (urinary tract infection) Qualifiers: Urinary tract infection type: site unspecified Hematuria presence: with hematuria Qualified Code(s): N39.0 - Urinary tract infection, site not specified; R31.9 - Hematuria, unspecified Is this a current diagnosis for this admission?: Yes (3) Hypokalemia Is this a current diagnosis for this admission?: Yes (4) Hypomagnesemia Is this a current diagnosis for this admission?: Yes (5) Alcohol abuse Is this a current diagnosis for this admission?: Yes (6) Metabolic encephalopathy Is this a current diagnosis for this admission?: Yes (7) Hyperammonemia Is this a current diagnosis for this admission?: Yes (8) Alcohol withdrawal Qualifiers: Complication of substance-induced condition: with delirium Qualified Code(s): F10.231 - Alcohol dependence with withdrawal delirium Is this a current diagnosis for this admission?: Yes (9) Respiratory failure with hypoxia and hypercapnia Qualifiers: Chronicity: acute Qualified Code(s): J96.01 - Acute respiratory failure with hypoxia; J96.02 - Acute respiratory failure with hypercapnia Is this a current diagnosis for this admission?: Yes (10) Nosocomial pneumonia Is this a current diagnosis for this admission?: Yes (11) Hypotension Qualifiers: Hypotension type: unspecified hypotension type Qualified Code(s): I95.9 - Hypotension, unspecified Is this a current diagnosis for this admission?: Yes (12) Gastroparesis Is this a current diagnosis for this admission?: Yes - Plan Summary Plan Summary: Continue treatment
[2018-10-11] MEDS: PROPOFOL 1,000 MG/100 ML INFUS..BTL IV PRN ×2 (01:23→07:17)
[2018-10-11] MEDS: POTASSIUM CHLORIDE 20 MEQ/50 ML RTU IV SCH ×3 (01:24→12:25)
[2018-10-11 05:07] LABS: ABSOLUTE BASOPHILS # (AUTO) 0.1 10^3/uL (0.0-0.2); ABSOLUTE EOSINOPHILS # (AUTO) 0.6 10^3/uL (0.0-0.6); ABSOLUTE LYMPHOCYTES (AUTO) 1.3 10^3/uL (0.5-4.7); ABSOLUTE MONOCYTES (AUTO) 0.7 10^3/uL (0.1-1.4); BASOPHILS % (AUTO) 1.2 % (0-2); EOSINOPHILS % (AUTO) 4.8 % (0-6); HEMATOCRIT 23.8 % (36.0-47.0); LYMPHOCYTES % (AUTO) 10.4 % (13-45); MEAN CORPUSCULAR HEMOGLOBIN 35.3 pg (27.0-33.4); MEAN CORPUSCULAR HGB CONC 33.2 g/dL (32.0-36.0); MEAN CORPUSCULAR VOLUME 106 fl (80-97); MONOCYTES % (AUTO) 5.7 % (3-13); PLATELET COUNT 111 10^3/uL (150-450); RED BLOOD COUNT 2.24 10^6/uL (3.72-5.28); RED CELL DISTRIBUTION WIDTH 24.6 % (11.5-14.0); SEGMENTED NEUTROPHILS % (AUTO) 77.9 % (42-78); TOTAL CELLS COUNTED % (AUTO) 100 %; WHITE BLOOD COUNT 12.8 10^3/uL (4.0-10.5)
[2018-10-11 05:19] LABS: HEMOGLOBIN 7.9 g/dL (12.0-15.5)
[2018-10-11 05:24] LABS: ANION GAP 7 (5-19); BLOOD UREA NITROGEN 18 mg/dL (7-20); CALCIUM 9.2 mg/dL (8.4-10.2); CARBON DIOXIDE 13 mmol/L (22-30); CHLORIDE 123 mmol/L (98-107); GLUCOSE 117 mg/dL (75-110); POTASSIUM 3.3 mmol/L (3.6-5.0); SODIUM 142.9 mmol/L (137-145)
[2018-10-11 05:29] LABS: ARTERIAL BLOOD BASE EXCESS -11.5 mmol/L; ARTERIAL BLOOD H2CO3 0.75 mmol/L (1.05-1.35); ARTERIAL BLOOD HCO3 13.1 mmol/L (20-24); ARTERIAL BLOOD O2 SATURATION 94.2 % (94-98); ARTERIAL BLOOD PH 7.34 (7.35-7.45); ARTERIAL BLOOD PO2 72.9 mmHg (80-100); ARTERIAL BLOOD TOTAL CO2 13.9 mmol/L (21-25)
[2018-10-11 05:30] LABS: ARTERIAL BLOOD FIO2 30%
[2018-10-11] MEDS: METOCLOPRAMIDE HCL INJ/PF 10 MG/2 ML SDV IV SCH ×3 (05:34→21:40)
[2018-10-11 05:58] LABS: ANISOCYTOSIS 3+; BURR CELLS SLIGHT; OVALOCYTES 1+; PLATELET COMMENT ADEQUATE; POIKILOCYTOSIS 2+; SCHISTOCYTES SLIGHT; TARGET CELLS 1+; TEAR DROP CELLS SLIGHT; TOXIC GRANULATION 1+; TOXIC VACUOLATION PRESENT
--- NOTE | 2018-10-11 08:33 | RADIOLOGY REPORT (SQ) ---
EXAM DESCRIPTION: CHEST SINGLE VIEW COMPLETED DATE/TIME: 10/11/2018 6:46 am REASON FOR STUDY: resp failure COMPARISON: Chest films 10/05/2018, 10/08/2018, 10/09/2018, 10/10/2018 EXAM PARAMETERS: NUMBER OF VIEWS: One view. TECHNIQUE: Single frontal radiographic view of the chest acquired. RADIATION DOSE: NA LIMITATIONS: None. FINDINGS: LUNGS AND PLEURA: Consolidation in the medial right lung base in the right retrocardiac re gion from right lower lobe collapse/ consolidation. This is similar compared to previous films. Small right pleural effusion is present, increased compared to previous films. There is persistent left basilar airspace disease atelectasis versus pneumonia. No left pleural effu racquel. No right or left pneumothorax MEDIASTINUM AND HILAR STRUCTURES: No masses. Contour normal. HEART AND VASCULAR STRUCTURES: No cardiomegaly BONES: No acute findings. HARDWARE: Endotracheal tube tip at the clavicles, 6 to 7 cm above the jana. This report was called to the ICU at the time of dictation to the patient's nurse. Nasogastric tube tip and side port in the stomach. Right jugular central line tip in the SVC. OTHER: No other significant finding. IMPRESSION: Continued collapse/ consolidation right lower lobe New trace right pleural effusion Endotracheal tube 6 to 7 cm above the jana. TECHNICAL DOCUMENTATION: JOB ID: [id number] [employer]- All Rights Reserved Reading location - IP/workstation name: [email or web address]
[2018-10-11] MEDS: CEFEPIME 2 GM/D5W RTU 2 GM/50 ML RTUPB IV SCH ×2 (09:16→20:44)
[2018-10-11] MEDS: NORMAL SALINE 1000 ML 1,000 ML with POTASSIUM CHLORIDE 20 MEQ, MAGNESIUM SULFATE 8 MEQ,... IV SCH ×4 (09:17)
[2018-10-11] MEDS: THIAMINE HCL 100 MG TABLET NG SCH (09:18)
[2018-10-11] MEDS: FUROSEMIDE INJ/PF 40 MG/4 ML SDV IV SCH (09:18)
[2018-10-11] MEDS: NORMAL SALINE 1000 ML 1,000 ML IV PRN ×2 (09:33→17:54)
--- NOTE | 2018-10-11 11:17 | RADIOLOGY REPORT (SQ) ---
EXAM DESCRIPTION: CHEST SINGLE VIEW COMPLETED DATE/TIME: 10/11/2018 10:36 am REASON FOR STUDY: Readjusted ET Tube COMPARISON: 10/11/2018 earlier. FINDINGS: Single-view chest AP portable semi-upright at approximately 0954 hours in PACs. Endotracheal and nasogastric tubes, right IJ line remain in place, appropriate. Similar appearance of the lungs. Right apical pleural thickening and scar with bibasilar diminished aeration, right greater than left. This looks unchanged. TECHNICAL DOCUMENTATION: JOB ID: [id number] Reading location - IP/workstation name: [email or web address]
[2018-10-11 16:56] LABS: ANION GAP 6 (5-19); BLOOD UREA NITROGEN 18 mg/dL (7-20); CALCIUM 9.3 mg/dL (8.4-10.2); CARBON DIOXIDE 12 mmol/L (22-30); CHLORIDE 125 mmol/L (98-107); GLUCOSE 139 mg/dL (75-110); POTASSIUM 3.8 mmol/L (3.6-5.0); SODIUM 142.7 mmol/L (137-145)
[2018-10-11] MEDS: DEXTROSE 5%-WATER 250 ML with VASOPRESSIN 100 UNIT IV PRN ×2 (18:33)
--- NOTE | 2018-10-11 20:45 | PDOC PROGRESS REPORT ---
Subjective Progress Note for:: 10/11/18 Subjective:: Patient seen by the bedside,, still intubated underwent weaning trials Reason For Visit: SEPSIS, UTI, AMS, ACUTE KIDNEY INJURY, DELIRIUM Physical Exam Vital Signs: Temp Pulse Resp BP Pulse Ox 98.1 F 106 H 20 122/76 95 10/11/18 19:37 10/11/18 18:00 10/11/18 18:07 10/11/18 18:07 10/11/18 18:07 Intake & Output 10/10/18 10/11/18 10/12/18 06:59 06:59 06:59 Intake Total 2448 4590 1844 Output Total 1820 7985 925 Balance 628 2315 919 Weight 89.1 kg 89.3 kg General appearance: PRESENT: no acute distress Eye exam: PRESENT: PERRLA Respiratory exam: PRESENT: rhonchi Cardiovascular exam: PRESENT: +S1, +S2 GI/Abdominal exam: PRESENT: soft Neurological exam: PRESENT: alert Results Laboratory Results: 10/11/18 04:50 10/11/18 16:25 10/11/18 10/11/18 10/11/18 04:50 04:50 05:02 WBC 12.8 H RBC 2.24 L Hgb 7.9 L Hct 23.8 L MCV 106 H MCH 35.3 H MCHC 33.2 RDW 24.6 H Plt Count 111 L Seg Neutrophils % 77.9 Lymphocytes % 10.4 L Monocytes % 5.7 Eosinophils % 4.8 Basophils % 1.2 Absolute Neutrophils 10.0 H Absolute Lymphocytes 1.3 Absolute Monocytes 0.7 Absolute Eosinophils 0.6 Absolute Basophils 0.1 Carbonic Acid 0.75 L HCO3/H2CO3 Ratio 17:1 ABG pH 7.34 L ABG pCO2 25.0 L ABG pO2 72.9 L ABG HCO3 13.1 L ABG O2 Saturation 94.2 ABG Base Excess -11.5 FiO2 30% Sodium 142.9 Potassium 3.3 L Chloride 123 H Carbon Dioxide 13 L Anion Gap 7 BUN 18 Creatinine 1.31 H Est GFR ( Amer) 51 L Est GFR (Non-Af Amer) 42 L Glucose 117 H Lactic Acid Calcium 9.2 Magnesium 1.7 10/11/18 10/11/18 15:10 16:25 WBC RBC Hgb Hct MCV MCH MCHC RDW Plt Count Seg Neutrophils % Lymphocytes % Monocytes % Eosinophils % Basophils % Absolute Neutrophils Absolute Lymphocytes Absolute Monocytes Absolute Eosinophils Absolute Basophils Carbonic Acid HCO3/H2CO3 Ratio ABG pH ABG pCO2 ABG pO2 ABG HCO3 ABG O2 Saturation ABG Base Excess FiO2 Sodium 142.7 Potassium 3.8 Chloride 125 H Carbon Dioxide 12 L Anion Gap 6 BUN 18 Creatinine 1.51 H Est GFR ( Amer) 43 L Est GFR (Non-Af Amer) 36 L Glucose 139 H Lactic Acid 1.2 Calcium 9.3 Magnesium 09/29/18 09/29/18 09/29/18 10:44 10:44 12:59 Creatine Kinase Cancelled CK-MB (CK-2) Troponin I Cancelled 0.028 NT-Pro-B Natriuret Pep 09/29/18 09/29/18 09/29/18 12:59 15:30 15:30 Creatine Kinase 77 161 H CK-MB (CK-2) 2.69 Troponin I 0.028 NT-Pro-B Natriuret Pep 09/29/18 09/29/18 09/30/18 18:59 18:59 00:59 Creatine Kinase 201 H 197 H CK-MB (CK-2) 3.45 Troponin I 0.023 NT-Pro-B Natriuret Pep 09/30/18 10/01/18 10/03/18 00:59 04:13 04:50 Creatine Kinase CK-MB (CK-2) 2.94 Troponin I 0.021 NT-Pro-B Natriuret Pep 2270 H 3170 H 10/09/18 04:50 Creatine Kinase CK-MB (CK-2) Troponin I NT-Pro-B Natriuret Pep 630 Impressions: Head CT 10/03/18 00:00 IMPRESSION: CHRONIC CHANGES OF ATROPHY AND MICROVASCULAR ISCHEMIA. NO ACUTE PROCESS. EVIDENCE OF ACUTE STROKE: NO. KUB X-Ray 10/05/18 00:00 IMPRESSION: Nasogastric tube tip and side port in the stomach Assessment & Plan - Diagnosis (1) Septic shock Is this a current diagnosis for this admission?: Yes (2) UTI (urinary tract infection) Qualifiers: Urinary tract infection type: site unspecified Hematuria presence: with h ematuria Qualified Code(s): N39.0 - Urinary tract infection, site not spe cified; R31.9 - Hematuria, unspecified Is this a current diagnosis for this admission?: Yes (3) Hypokalemia Is this a current diagnosis for this admission?: Yes (4) Hypomagnesemia Is this a current diagnosis for this admission?: Yes (5) Alcohol abuse Is this a current diagnosis for this admission?: Yes (6) Metabolic encephalopathy Is this a current diagnosis for this admission?: Yes (7) Hyperammonemia Is this a current diagnosis for this admission?: Yes (8) Alcohol withdrawal Qualifiers: Complication of substance-induced condition: with delirium Qualified Code(s): F10.231 - Alcohol dependence with withdrawal delirium Is this a current diagnosis for this admission?: Yes (9) Respiratory failure with hypoxia and hypercapnia Qualifiers: Chronicity: acute Qualified Code(s): J96.01 - Acute respiratory failure with hypoxia; J96.02 - Acute respiratory failure with hypercapnia Is this a current diagnosis for this admission?: Yes (10) Nosocomial pneumonia Is this a current diagnosis for this admission?: Yes (11) Hypotension Qualifiers: Hypotension type: unspecified hypotension type Qualified Code(s): I95.9 - Hypotension, unspecified Is this a current diagnosis for this admission?: Yes (12) Gastroparesis Is this a current diagnosis for this admission?: Yes
[2018-10-12] MEDS: PROPOFOL 1,000 MG/100 ML INFUS..BTL IV PRN ×2 (01:49→12:40)
[2018-10-12 04:43] LABS: ABSOLUTE BASOPHILS # (AUTO) 0.1 10^3/uL (0.0-0.2); ABSOLUTE EOSINOPHILS # (AUTO) 0.5 10^3/uL (0.0-0.6); ABSOLUTE LYMPHOCYTES (AUTO) 1.5 10^3/uL (0.5-4.7); ABSOLUTE NEUT (AUTO) 11.6 10^3/uL (1.7-8.2); BASOPHILS % (AUTO) 0.5 % (0-2); EOSINOPHILS % (AUTO) 3.7 % (0-6); HEMATOCRIT 24.7 % (36.0-47.0); MEAN CORPUSCULAR HEMOGLOBIN 34.9 pg (27.0-33.4); MEAN CORPUSCULAR HGB CONC 32.4 g/dL (32.0-36.0); MEAN CORPUSCULAR VOLUME 108 fl (80-97); MONOCYTES % (AUTO) 6.8 % (3-13); PLATELET COUNT 117 10^3/uL (150-450); RED BLOOD COUNT 2.29 10^6/uL (3.72-5.28); RED CELL DISTRIBUTION WIDTH 24.8 % (11.5-14.0); TOTAL CELLS COUNTED % (AUTO) 100 %; WHITE BLOOD COUNT 14.7 10^3/uL (4.0-10.5)
[2018-10-12 05:03] LABS: ANION GAP 8 (5-19); ANISOCYTOSIS 3+; BLOOD UREA NITROGEN 19 mg/dL (7-20); CALCIUM 9.5 mg/dL (8.4-10.2); CARBON DIOXIDE 11 mmol/L (22-30); CHLORIDE 125 mmol/L (98-107); GLUCOSE 126 mg/dL (75-110); HYPOCHROMASIA 2+; POIKILOCYTOSIS 1+; POLYCHROMASIA 1+; POTASSIUM 3.5 mmol/L (3.6-5.0); SODIUM 143.7 mmol/L (137-145); STOMATOCYTES 1+
[2018-10-12 05:05] LABS: PLATELET COMMENT ADEQUATE
[2018-10-12] MEDS: METOCLOPRAMIDE HCL INJ/PF 10 MG/2 ML SDV IV SCH ×3 (05:23→21:16)
[2018-10-12] MEDS: NORMAL SALINE 1000 ML 1,000 ML IV PRN (05:24)
[2018-10-12 05:27] LABS: ARTERIAL BLOOD BASE EXCESS -13.1 mmol/L; ARTERIAL BLOOD H2CO3 0.77 mmol/L (1.05-1.35); ARTERIAL BLOOD HCO3 12.1 mmol/L (20-24); ARTERIAL BLOOD O2 SATURATION 95.9 % (94-98); ARTERIAL BLOOD PCO2 25.5 mmHg (35-45); ARTERIAL BLOOD PO2 86.8 mmHg (80-100); ARTERIAL BLOOD TOTAL CO2 12.9 mmol/L (21-25)
[2018-10-12 05:29] LABS: ARTERIAL BLOOD FIO2 30%
--- NOTE | 2018-10-12 08:52 | RADIOLOGY REPORT (SQ) ---
EXAM DESCRIPTION: CHEST SINGLE VIEW COMPLETED DATE/TIME: 10/12/2018 6:45 am REASON FOR STUDY: sepsis resp failure COMPARISON: 10/11/2018. FINDINGS: Single-view chest AP portable semi-upright 0553 hours. Appropriate endotracheal and nasogastric tubes. Right IJ line remains in place, unchanged. Stable appearance of the lungs without new infiltrate. No pneumothorax. TECHNICAL DOCUMENTATION: JOB ID: [id number] Reading location - IP/workstation name: [email or web address]
[2018-10-12] MEDS: CEFEPIME 2 GM/D5W RTU 2 GM/50 ML RTUPB IV SCH (09:59)
[2018-10-12] MEDS: THIAMINE HCL 100 MG TABLET NG SCH (09:59)
[2018-10-12] MEDS: NORMAL SALINE 1000 ML 1,000 ML with POTASSIUM CHLORIDE 20 MEQ, MAGNESIUM SULFATE 8 MEQ,... IV SCH ×4 (09:59)
[2018-10-12 11:18] LABS: APPEARANCE,URINE CLOUDY; BILIRUBIN,URINE NEGATIVE (NEGATIVE); COLOR,URINE YELLOW; GLUCOSE, URINE NEGATIVE (NEGATIVE); KETONES,URINE NEGATIVE (NEGATIVE); LEUKOCYTE ESTERASE,URINE MODERATE (NEGATIVE); NITRITE,URINE NEGATIVE (NEGATIVE); PROTEIN,URINE NEGATIVE (NEGATIVE); UROBILINOGEN,URINE NEGATIVE mg/dL (<2.0)
--- NOTE | 2018-10-12 18:33 | PDOC PROGRESS REPORT ---
Subjective Progress Note for:: 10/12/18 Subjective:: Patient is intubated Reason For Visit: SEPSIS, UTI, AMS, ACUTE KIDNEY INJURY, DELIRIUM Physical Exam Vital Signs: Temp Pulse Resp BP Pulse Ox 98.2 F 106 H 19 104/80 100 10/12/18 16:00 10/12/18 16:00 10/12/18 16:00 10/12/18 16:00 10/12/18 16:00 Intake & Output 10/11/18 10/12/18 10/13/18 06:59 06:59 06:59 Intake Total 4593 4259 171 Output Total 6905 4287 690 Balance 2312 7684 -541 Weight 89.3 kg 90.9 kg General appearance: PRESENT: no acute distress Eye exam: PRESENT: PERRLA Respiratory exam: PRESENT: clear to auscultation dawna Cardiovascular exam: PRESENT: +S1, +S2 GI/Abdominal exam: PRESENT: soft Results Laboratory Results: 10/12/18 04:23 10/12/18 04:23 10/12/18 10/12/18 10/12/18 04:23 04:23 04:54 WBC 14.7 H RBC 2.29 L Hgb 8.0 L Hct 24.7 L MCV 108 H MCH 34.9 H MCHC 32.4 RDW 24.8 H Plt Count 117 L Seg Neutrophils % 79.0 H Lymphocytes % 10.0 L Monocytes % 6.8 Eosinophils % 3.7 Basophils % 0.5 Absolute Neutrophils 11.6 H Absolute Lymphocytes 1.5 Absolute Monocytes 1.0 Absolute Eosinophils 0.5 Absolute Basophils 0.1 Carbonic Acid 0.77 L HCO3/H2CO3 Ratio 15:1 ABG pH 7.30 L ABG pCO2 25.5 L ABG pO2 86.8 ABG HCO3 12.1 L ABG O2 Saturation 95.9 ABG Base Excess -13.1 FiO2 30% Sodium 143.7 Potassium 3.5 L Chloride 125 H Carbon Dioxide 11 L Anion Gap 8 BUN 19 Creatinine 1.64 H Est GFR ( Amer) 39 L Est GFR (Non-Af Amer) 33 L Glucose 126 H Calcium 9.5 Magnesium 1.8 Urine Color Urine Appearance Urine pH Ur Specific Index Urine Protein Urine Glucose (UA) Urine Ketones Urine Blood Urine Nitrite Ur Leukocyte Esterase Urine WBC (Auto) Urine RBC (Auto) 10/12/18 10:55 WBC RBC Hgb Hct MCV MCH MCHC RDW Plt Count Seg Neutrophils % Lymphocytes % Monocytes % Eosinophils % Basophils % Absolute Neutrophils Absolute Lymphocytes Absolute Monocytes Absolute Eosinophils Absolute Basophils Carbonic Acid HCO3/H2CO3 Ratio ABG pH ABG pCO2 ABG pO2 ABG HCO3 ABG O2 Saturation ABG Base Excess FiO2 Sodium Potassium Chloride Carbon Dioxide Anion Gap BUN Creatinine Est GFR ( Amer) Est GFR (Non-Af Amer) Glucose Calcium Magnesium Urine Color YELLOW Urine Appearance CLOUDY Urine pH 5.0 Ur Specific Index 1.010 Urine Protein NEGATIVE Urine Glucose (UA) NEGATIVE Urine Ketones NEGATIVE Urine Blood MODERATE H Urine Nitrite NEGATIVE Ur Leukocyte Esterase MODERATE H Urine WBC (Auto) 69 Urine RBC (Auto) 51 09/29/18 09/29/18 09/29/18 10:44 10:44 12:59 Creatine Kinase Cancelled CK-MB (CK-2) Troponin I Cancelled 0.028 NT-Pro-B Natriuret Pep 09/29/18 09/29/18 09/29/18 12:59 15:30 15:30 Creatine Kinase 77 161 H CK-MB (CK-2) 2.69 Troponin I 0.028 NT-Pro-B Natriuret Pep 09/29/18 09/29/18 09/30/18 18:59 18:59 00:59 Creatine Kinase 201 H 197 H CK-MB (CK-2) 3.45 Troponin I 0.023 NT-Pro-B Natriuret Pep 09/30/18 10/01/18 10/03/18 00:59 04:13 04:50 Creatine Kinase CK-MB (CK-2) 2.94 Troponin I 0.021 NT-Pro-B Natriuret Pep 2270 H 3170 H 10/09/18 04:50 Creatine Kinase CK-MB (CK-2) Troponin I NT-Pro-B Natriuret Pep 630 Impressions: Head CT 10/03/18 00:00 IMPRESSION: CHRONIC CHANGES OF ATROPHY AND MICROVASCULAR ISCHEMIA. NO ACUTE PROCESS. EVIDENCE OF ACUTE STROKE: NO. KUB X-Ray 10/05/18 00:00 IMPRESSION: Nasogastric tube tip and side port in the stomach Assessment & Plan - Diagnosis (1) Septic shock Is this a current diagnosis for this admission?: Yes (2) UTI (urinary tract infection) Qualifiers: Urinary tract infection type: site unspecified Hematuria presence: with hematuria Qualified Code(s): N39.0 - Urinary tract infection, site not specified; R31.9 - Hematuria, unspecified Is this a current diagnosis for this admission?: Yes (3) Hypokalemia Is this a current diagnosis for this admission?: Yes (4) Hypomagnesemia Is this a current diagnosis for this admission?: Yes (5) Alcohol abuse Is this a current diagnosis for this admission?: Yes (6) Metabolic encephalopathy Is this a current diagnosis for this admission?: Yes (7) Hyperammonemia Is this a current diagnosis for this admission?: Yes (8) Alcohol withdrawal Qualifiers: Complication of substance-induced condition: with delirium Qualified Code(s): F10.231 - Alcohol dependence with withdrawal delirium Is this a current diagnosis for this admission?: Yes (9) Respiratory failure with hypoxia and hypercapnia Qualifiers: Chronicity: acute Qualified Code(s): J96.01 - Acute respiratory failure with hypoxia; J96.02 - Acute respiratory failure with hypercapnia Is this a current diagnosis for this admission?: Yes (10) Nosocomial pneumonia Is this a current diagnosis for this admission?: Yes (11) Hypotension Qualifiers: Hypotension type: unspecified hypotension type Qualified Code(s): I95.9 - Hypotension, unspecified Is this a current diagnosis for this admission?: Yes (12) Gastroparesis Is this a current diagnosis for this admission?: Yes
[2018-10-12] MEDS: VANCOMYCIN HCL 500 MG in DEXTROSE 5%-WATER 100 ML IV SCH (18:34)
[2018-10-13] MEDS: PROPOFOL 1,000 MG/100 ML INFUS..BTL IV PRN ×3 (03:09→22:08)
[2018-10-13 04:23] LABS: ABSOLUTE BASOPHILS # (AUTO) 0.1 10^3/uL (0.0-0.2); ABSOLUTE EOSINOPHILS # (AUTO) 0.5 10^3/uL (0.0-0.6); ABSOLUTE LYMPHOCYTES (AUTO) 1.4 10^3/uL (0.5-4.7); ABSOLUTE MONOCYTES (AUTO) 1.2 10^3/uL (0.1-1.4); ABSOLUTE NEUT (AUTO) 12.3 10^3/uL (1.7-8.2); ARTERIAL BLOOD BASE EXCESS -12.9 mmol/L; ARTERIAL BLOOD H2CO3 0.77 mmol/L (1.05-1.35); ARTERIAL BLOOD HCO3 12.2 mmol/L (20-24); ARTERIAL BLOOD O2 SATURATION 96.6 % (94-98); ARTERIAL BLOOD PCO2 25.6 mmHg (35-45); ARTERIAL BLOOD PO2 93.9 mmHg (80-100); BASOPHILS % (AUTO) 0.4 % (0-2); EOSINOPHILS % (AUTO) 3.4 % (0-6); HEMATOCRIT 23.4 % (36.0-47.0); LYMPHOCYTES % (AUTO) 8.8 % (13-45); MEAN CORPUSCULAR HEMOGLOBIN 35.6 pg (27.0-33.4); MEAN CORPUSCULAR HGB CONC 32.9 g/dL (32.0-36.0); MEAN CORPUSCULAR VOLUME 109 fl (80-97); MONOCYTES % (AUTO) 7.5 % (3-13); PLATELET COUNT 112 10^3/uL (150-450); RED BLOOD COUNT 2.16 10^6/uL (3.72-5.28); RED CELL DISTRIBUTION WIDTH 24.9 % (11.5-14.0); SEGMENTED NEUTROPHILS % (AUTO) 79.9 % (42-78); TOTAL CELLS COUNTED % (AUTO) 100 %; WHITE BLOOD COUNT 15.4 10^3/uL (4.0-10.5)
[2018-10-13 04:24] LABS: ARTERIAL BLOOD FIO2 30%
[2018-10-13 04:38] LABS: ANION GAP 8 (5-19); BLOOD UREA NITROGEN 20 mg/dL (7-20); CALCIUM 9.8 mg/dL (8.4-10.2); CARBON DIOXIDE 11 mmol/L (22-30); CHLORIDE 127 mmol/L (98-107); GLUCOSE 99 mg/dL (75-110); POTASSIUM 3.4 mmol/L (3.6-5.0); SODIUM 145.5 mmol/L (137-145)
[2018-10-13 04:54] LABS: HEMOGLOBIN 7.7 g/dL (12.0-15.5)
[2018-10-13 04:56] LABS: ANISOCYTOSIS 3+; HYPOCHROMASIA 2+; STOMATOCYTES 1+
[2018-10-13 04:57] LABS: PLATELET COMMENT ADEQUATE
[2018-10-13] MEDS: METOCLOPRAMIDE HCL INJ/PF 10 MG/2 ML SDV IV SCH ×3 (05:48→21:07)
[2018-10-13] MEDS: NORMAL SALINE 1000 ML 1,000 ML with POTASSIUM CHLORIDE 20 MEQ, MAGNESIUM SULFATE 8 MEQ,... IV SCH ×4 (06:59)
--- NOTE | 2018-10-13 08:23 | RADIOLOGY REPORT (SQ) ---
EXAM DESCRIPTION: CHEST SINGLE VIEW COMPLETED DATE/TIME: 10/13/2018 6:16 am REASON FOR STUDY: resp failure COMPARISON: 10/12/2018. EXAM PARAMETERS: NUMBER OF VIEWS: One view. TECHNIQUE: Single frontal radiographic view of the chest acquired. RADIATION DOSE: NA LIMITATIONS: None. FINDINGS: LUNGS AND PLEURA: No significant change. Again seen is linear density and pleural thicken ing in the right apex. Patchy airspace disease in the left lung base. MEDIASTINUM AND HILAR STRUCTURES: No masses. Contour normal. HEART AND VASCULAR STRUCTURES: Heart normal in size. Normal vasculature. BONES: No acute findings. HARDWARE: Stable endotracheal tube, nasogastric tube, and central line. OTHER: No other significant finding. IMPRESSION: NO SIGNIFICANT CHANGE IN APPEARANCE OF THE CHEST. TECHNICAL DOCUMENTATION: JOB ID: [id number] [employer]- All Rights Reserved Reading location - IP/workstation name: [email or web address]
[2018-10-13] MEDS: THIAMINE HCL 100 MG TABLET NG SCH (10:52)
[2018-10-13] MEDS ORDERED: FUROSEMIDE INJ/PF 100 MG/10 ML SDV IV ONE (13:13)
--- NOTE | 2018-10-13 13:37 | PDOC CONSULTATION ---
Consultation Consult Date: 10/13/18 Attending physician:: ABNER WILKINS Consult reason:: I was asked to see the patient because of oliguria and worsening kidney function. History of Present Illness Admission Date/PCP: 09/29/18 13:24 ABNER WILKINS MD History of Present Illness: MAAME SAENZ is a 53 year old female with history of alcoholism, COPD, non- Hodgkin's lymphoma who was admitted on 09/29/2018 for septic shock, urinary tract infection, altered mental status and acute kidney injury. Her urine culture has grown E. coli. She was initially admitted in the floor being treated with antibiotics. Last week on October 06 her mental status has deteriorated and became unresponsive, also hypotensive so she was transferred here in the ICU and subsequently intubated until current. She required vasopressors and was just stopped yesterday. She was making urine about 4376-3050 mL for the past 3 days but has been decreasing today significantly. Her fluid balance since admission at least from what is recorded is at least 24 L positive. Her initial kidney function on admission showed a BUN of 20, and creatinine of 2.07 this improved until October 05 200 BUN went down to 6 and her creatinine normalized 2.87. Since then her kidney function slowly declined and on October 11 she had a BUN of 18, creatinine 1.51. Yesterday she had a BUN of 19 with creatinine of 1.64 and today they were 20 and 1.79 with decreasing urine output. She was being given vancomycin from October 05 - October 07 but her vancomycin level was elevated on October 07 at 29.2 so it was briefly discontinued. Last vancomycin level in the computer was on October 10 with 17.3 at that point vancomycin has been resumed until currently. Patient was given furosemide 40 mg IV 2 days ago. Patient is being given a banana bag for concern about alcohol withdrawal given her history of alcoholism. Her sodium has been elevated for the last few days ranging from 142 2 10/31/1944 and today it is 145.5. Chloride is also elevated at 127 today. Her bicarbonate has been low between 12-15 and today it is 11. She does not have any anion gap. Potassium mildly low also at 3.4. Past Medical History Past Medical History: All the histories are taken from records since the patient is currently intubated and sedated. Cardiac Medical History: Reports: DVT Pulmonary Medical History: Reports: Chronic Obstructive Pulmonary Disease (COPD), Intubation, Pneumonia, Respiratory Failure Malignancy Medical History: Reports: Lymphoma - History of non-Hodgkin's lymphoma diagnosed 13 years ago. Had limited chem GI Medical History: Reports: Cirrhosis Past Surgical History Past Surgical History: Reports: Section, Hysterectomy, Orthopedic Surgery - Left hip replacement, right knee, Tonsillectomy, Tubal Ligation Social History Information Source: [facility] Records Smoking Status: Current Every Day Smoker Frequency of Alcohol Use: Heavy Hx Recreational Drug Use: No Drugs: Cocaine Hx Prescription Drug Abuse: No - Advance Directive Resuscitation Status: Full Code Family History Family History: Reviewed & Not Pertinent Parental Family History Reviewed: Yes Children Family History Reviewed: Unknown Sibling(s) Family History Reviewed.: Unknown Medication/Allergy Home Medications: No Home Medications 09/29/18 Allergies/Adverse Reactions: No Known Allergies Allergy (Verified 04/05/18 07:38) Review of Systems ROS unobtainable: Due to endotracheal tube, Due to mental status Physical Exam Vital Signs: Temp Pulse Resp BP Pulse Ox 97.2 F 106 H 20 95/77 L 100 10/13/18 12:00 10/13/18 12:00 10/13/18 12:00 10/13/18 12:00 10/13/18 12:00 Intake & Output 10/12/18 10/13/18 10/14/18 06:59 06:59 06:59 Intake Total 4259 2397 43 Output Total 1775 1180 66 Balance 2484 1217 -23 Weight 90.9 kg 91.4 kg Exam: General appearance: Currently intubated and sedated Head exam: PRESENT: atraumatic, normocephalic Eye exam: PRESENT: Eyes are closed Mouth exam: PRESENT: Endotracheal tube in place Neck exam: ABSENT: carotid bruit, JVD, lymphadenopathy, thyromegaly Respiratory exam: PRESENT: Coarse breath sounds to auscultation bilaterally. ABSENT: rales, rhonchi, stridor, wheezes Cardiovascular exam: PRESENT: RRR, +S1, +S2. ABSENT: systolic murmur Pulses: PRESENT: normal radial pulses, normal dorsalis pedis pulses GI/Abdominal exam: PRESENT: normal bowel sounds, soft. ABSENT: guarding, mass, tenderness Rectal exam: Deferred Extremities exam: PRESENT: Sedated. Positive left upper extremity edema and grade 1 bilateral lower extremity pitting edema ABSENT: calf tenderness Musculoskeletal: PRESENT: Sedated Neurological exam: PRESENT: Sedated Psychiatric exam: PRESENT: Unable to assess while sedated Skin exam: PRESENT: intact, dry, warm. ABSENT: rash Results Laboratory Results: 10/13/18 04:10 10/13/18 04:10 10/13/18 10/13/18 10/13/18 04:10 04:10 04:10 WBC 15.4 H RBC 2.16 L Hgb 7.7 L Hct 23.4 L MCV 109 H MCH 35.6 H MCHC 32.9 RDW 24.9 H Plt Count 112 L Seg Neutrophils % 79.9 H Lymphocytes % 8.8 L Monocytes % 7.5 Eosinophils % 3.4 Basophils % 0.4 Absolute Neutrophils 12.3 H Absolute Lymphocytes 1.4 Absolute Monocytes 1.2 Absolute Eosinophils 0.5 Absolute Basophils 0.1 Carbonic Acid 0.77 L HCO3/H2CO3 Ratio 15:1 ABG pH 7.30 L ABG pCO2 25.6 L ABG pO2 93.9 ABG HCO3 12.2 L ABG O2 Saturation 96.6 ABG Base Excess -12.9 FiO2 30% Sodium 145.5 H Potassium 3.4 L Chloride 127 H Carbon Dioxide 11 L Anion Gap 8 BUN 20 Creatinine 1.79 H Est GFR ( Amer) 36 L Est GFR (Non-Af Amer) 29 L Glucose 99 Calcium 9.8 Magnesium 1.9 09/29/18 09/29/18 09/29/18 10:44 10:44 12:59 Creatine Kinase Cancelled CK-MB (CK-2) Troponin I Cancelled 0.028 NT-Pro-B Natriuret Pep 09/29/18 09/29/18 09/29/18 12:59 15:30 15:30 Creatine Kinase 77 161 H CK-MB (CK-2) 2.69 Troponin I 0.028 NT-Pro-B Natriuret Pep 09/29/18 09/29/18 09/30/18 18:59 18:59 00:59 Creatine Kinase 201 H 197 H CK-MB (CK-2) 3.45 Troponin I 0.023 NT-Pro-B Natriuret Pep 09/30/18 10/01/18 10/03/18 00:59 04:13 04:50 Creatine Kinase CK-MB (CK-2) 2.94 Troponin I 0.021 NT-Pro-B Natriuret Pep 2270 H 3170 H 10/09/18 04:50 Creatine Kinase CK-MB (CK-2) Troponin I NT-Pro-B Natriuret Pep 630 Impressions: Head CT 10/03/18 00:00 IMPRESSION: CHRONIC CHANGES OF ATROPHY AND MICROVASCULAR ISCHEMIA. NO ACUTE PROCESS. EVIDENCE OF ACUTE STROKE: NO. KUB X-Ray 10/05/18 00:00 IMPRESSION: Nasogastric tube tip and side port in the stomach Chest X-Ray 10/13/18 06:00 IMPRESSION: NO SIGNIFICANT CHANGE IN APPEARANCE OF THE CHEST. Assessment & Plan - Diagnosis (1) Acute kidney injury Is this a current diagnosis for this admission?: Yes Plan: Multifactorial ATN secondary to sepsis, hypotension, toxic vancomycin level currently oliguric. Patient does not need urgent acute renal replacement therapy at this time yet. We will give her Lasix 80 mg IV x1 dose today. Will monitor kidney function and reevaluate for possible need for renal replacement therapy. Avoid nephrotoxic medications, monitor vancomycin trough level and adj ust antibiotic doses according to kidney function. (2) Acute tubular necrosis Is this a current diagnosis for this admission?: Yes (3) Sepsis Qualifiers: Sepsis type: sepsis due to unspecified organism Qualified Code(s): A41.9 - Sepsis, unspecified organism Is this a current diagnosis for this admission?: Yes Plan: On IV antibiotics. (4) Escherichia coli urinary tract infection Is this a current diagnosis for this admission?: Yes (5) Hypernatremia Is this a current diagnosis for this admission?: Yes Plan: Give water 200 mL via NG tube every 4 hours. (6) Hypokalemia Is this a current diagnosis for this admission?: Yes Plan: Potassium replacement as needed. (7) Metabolic encephalopathy Is this a current diagnosis for this admission?: Yes (8) Metabolic acidosis Is this a current diagnosis for this admission?: Yes Plan: Due to sepsis and AK I. We will give sodium bicarbonate through the NG tube. (9) Respiratory failure with hypoxia and hypercapnia Qualifiers: Chronicity: acute Qualified Code(s): J96.01 - Acute respiratory failure with hypoxia; J96.02 - Acute respiratory failure with hypercapnia Is this a current diagnosis for this admission?: Yes (10) Nosocomial pneumonia Is this a current diagnosis for this admission?: Yes (11) Alcoholism Is this a current diagnosis for this admission?: Yes (12) Anemia Qualifiers: Anemia type: unspecified type Qualified Code(s): D64.9 - Anemia, unspecified Is this a current diagnosis for this admission?: Yes - Notes Notes: Thank you very much for this consultation. I will follow the patient with you. - Time Time Spent: Greater than 70 Minutes
[2018-10-13] MEDS: IPRATROPIUM/ALBUTEROL 0.5-2.5 MG/3 ML AMPUL NEB PRN (14:35)
[2018-10-13] MEDS: SODIUM BICARBONATE 650 MG TABLET PO SCH ×2 (14:37→23:46)
--- NOTE | 2018-10-13 14:55 | PDOC CONSULTATION ---
Consultation Consult Date: 10/05/18 Attending physician:: ABNER WILKINS Consult reason:: Acute respiratory failure History of Present Illness Admission Date/PCP: 09/29/18 13:24 ABNER WILKINS MD History of Present Illness: MAAME SAENZ is a 52 year old female currently intubated and sedated in the ICU presented with altered mental status and shortness of breath and found to be hypoxic she had a history of pneumonia alcoholism and prior intubations. During her intubation was found that she had a what appeared to be aspirate of gastric content into her orotracheal area. Past Medical History Cardiac Medical History: Reports: DVT Pulmonary Medical History: Reports: Chronic Obstructive Pulmonary Disease (COPD), Intubation, Pneumonia, Respiratory Failure Denies: Tuberculosis Malignancy Medical History: Reports: Lymphoma - History of non-Hodgkin's lymphoma diagnosed 13 years ago. Had limited chem GI Medical History: Reports: Cirrhosis Psychiatric Medical History: Denies: Depression Hematology: Reports: Anemia Past Surgical History Past Surgical History: Reports: Section, Hysterectomy, Orthopedic Surgery - Left hip replacement, right knee, Tonsillectomy, Tubal Ligation Denies: Pacemaker Social History Information Source: [facility] Records Smoking Status: Current Every Day Smoker Frequency of Alcohol Use: Heavy Hx Recreational Drug Use: No Drugs: Cocaine Hx Prescription Drug Abuse: No - Advance Directive Resuscitation Status: Full Code Family History Parental Family History Reviewed: No Children Family History Reviewed: No Sibling(s) Family History Reviewed.: No Medication/Allergy Home Medications: No Home Medications 09/29/18 Allergies/Adverse Reactions: No Known Allergies Allergy (Verified 04/05/18 07:38) Review of Systems ROS unobtainable: Due to endotracheal tube, Due to mental status Physical Exam Vital Signs: Temp Pulse Resp BP Pulse Ox 97.3 F 115 H 27 H 128/75 H 98 10/05/18 07:42 10/05/18 07:42 10/05/18 08:21 10/05/18 07:42 10/05/18 09:14 Intake & Output 10/04/18 10/05/18 10/06/18 06:59 06:59 06:59 Intake Total 2592 1372 Output Total 300 725 Balance 2292 647 Weight 75.2 kg 79.1 kg General appearance: PRESENT: no acute distress, disheveled. ABSENT: cooperative Head exam: PRESENT: atraumatic, normocephalic Eye exam: PRESENT: conjunctiva pale. ABSENT: EOMI, nystagmus, periorbital swelling, scleral icterus Mouth exam: PRESENT: dry mucosa, neck supple, tongue midline, other - ET tube Neck exam: ABSENT: carotid bruit, JVD, lymphadenopathy, thyromegaly, tracheal deviation, tracheostomy Respiratory exam: PRESENT: decreased breath sounds, prolonged expiratory phas, rales, rhonchi, unlabored. ABSENT: retraction, stridor Cardiovascular exam: PRESENT: RRR, +S1, +S2, tachycardia. ABSENT: rubs Pulses: PRESENT: normal radial pulses GI/Abdominal exam: PRESENT: soft. ABSENT: tenderness Gentrourinary exam: PRESENT: indwelling catheter Extremities exam: PRESENT: pedal edema. ABSENT: calf tenderness, clubbing, joint swelling Musculoskeletal exam: ABSENT: ambulatory, deformity, dislocation Neurological exam: ABSENT: awake Skin exam: PRESENT: dry, other Results Laboratory Results: 10/04/18 04:24 10/05/18 01:44 10/04/18 10/04/18 10/04/18 04:24 04:24 16:59 WBC 11.4 H RBC 2.75 L Hgb 10.0 L Hct 29.4 L MCV 107 H MCH 36.5 H MCHC 34.2 RDW 26.6 H Plt Count 125 L Seg Neutrophils % 76.2 Lymphocytes % 13.4 Monocytes % 7.5 Eosinophils % 1.7 Basophils % 1.2 Absolute Neutrophils 8.7 H Absolute Lymphocytes 1.5 Absolute Monocytes 0.9 Absolute Eosinophils 0.2 Absolute Basophils 0.1 Carbonic Acid Cancelled HCO3/H2CO3 Ratio Cancelled ABG pH Cancelled ABG pCO2 Cancelled ABG pO2 Cancelled ABG HCO3 Cancelled ABG O2 Saturation Cancelled ABG Base Excess Cancelled VBG pH VBG pCO2 VBG HCO3 VBG Base Excess FiO2 Cancelled Sodium Potassium Chloride Carbon Dioxide Anion Gap BUN Creatinine Est GFR ( Amer) Est GFR (Non-Af Amer) Glucose Calcium Magnesium 1.3 L Ammonia 10/04/18 10/05/18 10/05/18 23:48 01:44 01:44 WBC RBC Hgb Hct MCV MCH MCHC RDW Plt Count Seg Neutrophils % Lymphocytes % Monocytes % Eosinophils % Basophils % Absolute Neutrophils Absolute Lymphocytes Absolute Monocytes Absolute Eosinophils Absolute Basophils Carbonic Acid HCO3/H2CO3 Ratio ABG pH ABG pCO2 ABG pO2 ABG HCO3 ABG O2 Saturation ABG Base Excess VBG pH 7.25 L VBG pCO2 57.9 VBG HCO3 24.5 VBG Base Excess -3.1 FiO2 Sodium 150.4 H Potassium 3.5 L Chloride 118 H Carbon Dioxide 25 Anion Gap 7 BUN 6 L Creatinine 0.87 Est GFR ( Amer) > 60 Est GFR (Non-Af Amer) > 60 Glucose 111 H Calcium 8.7 Magnesium Ammonia 70.4 H 10/05/18 08:07 WBC RBC Hgb Hct MCV MCH MCHC RDW Plt Count Seg Neutrophils % Lymphocytes % Monocytes % Eosinophils % Basophils % Absolute Neutrophils Absolute Lymphocytes Absolute Monocytes Absolute Eosinophils Absolute Basophils Carbonic Acid Cancelled HCO3/H2CO3 Ratio Cancelled ABG pH Cancelled ABG pCO2 Cancelled ABG pO2 Cancelled ABG HCO3 Cancelled ABG O2 Saturation Cancelled ABG Base Excess Cancelled VBG pH VBG pCO2 VBG HCO3 VBG Base Excess FiO2 Cancelled Sodium Potassium Chloride Carbon Dioxide Anion Gap BUN Creatinine Est GFR ( Amer) Est GFR (Non-Af Amer) Glucose Calcium Magnesium Ammonia 09/29/18 12:59 Blood Blood Culture - Final NO GROWTH IN 5 DAYS 09/29/18 10:44 Blood Blood Culture - Final NO GROWTH IN 5 DAYS 09/29/18 09/29/18 09/29/18 10:44 10:44 12:59 Creatine Kinase Cancelled CK-MB (CK-2) Troponin I Cancelled 0.028 NT-Pro-B Natriuret Pep 09/29/18 09/29/18 09/29/18 12:59 15:30 15:30 Creatine Kinase 77 161 H CK-MB (CK-2) 2.69 Troponin I 0.028 NT-Pro-B Natriuret Pep 09/29/18 09/29/18 09/30/18 18:59 18:59 00:59 Creatine Kinase 201 H 197 H CK-MB (CK-2) 3.45 Troponin I 0.023 NT-Pro-B Natriuret Pep 09/30/18 10/01/18 10/03/18 00:59 04:13 04:50 Creatine Kinase CK-MB (CK-2) 2.94 Troponin I 0.021 NT-Pro-B Natriuret Pep 2270 H 3170 H Impressions: Head CT 10/03/18 00:00 IMPRESSION: CHRONIC CHANGES OF ATROPHY AND MICROVASCULAR ISCHEMIA. NO ACUTE PROCESS. EVIDENCE OF ACUTE STROKE: NO. Chest X-Ray 10/05/18 08:05 IMPRESSION: Diffuse left-sided airspace disease, asymmetric pulmonary edema versus pneumonia. Trace left pleural effusion Assessment & Plan - Diagnosis (1) Lactic acidosis Is this a current diagnosis for this admission?: Yes Plan: Serial lactic acid her increasing (2) Metabolic encephalopathy Is this a current diagnosis for this admission?: Yes Plan: unchanged (3) Respiratory failure with hypoxia and hypercapnia Qualifiers: Chronicity: acute Qualified Code(s): J96.01 - Acute respiratory failure with hypoxia; J96.02 - Acute respiratory failure with hypercapnia Is this a current diagnosis for this admission?: Yes Plan: Oxygenate and ventilate to maintain pH and CO2 (4) Septic shock Is this a current diagnosis for this admission?: Yes Plan: Continue vasopressor agents - Time Total Critical Time (Minutes): 55
--- NOTE | 2018-10-13 14:56 | Operative Report ---
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 Indication for Procedure: vaso- active drugs need for infusion due to hypotension and sepsis Date: 10/05/18 Surgeon: MATILDE WHITE - Central Line Right Internal jugular Time completed: 10:55 Consent obtained: Yes Central line pre-insertion: Sterile PPE donned, Betadine prep applied, Chloraprep applied, Sterile drapes applied Central line lumen type: Triple Anesthetic type: 1% Lidocaine mL's of anesthesia: 4 Ultrasound guided: Yes Line secured with sutures: Yes Central line post-insertion: Blood return from lumens, Biopatch applied, Sutured, Sterile dressing applied, Position confirmed w/ CXR Complications: No
--- NOTE | 2018-10-13 14:58 | Operative Report ---
Operative Report DATE OF SURGERY: 10/05/18 Operative Report: 53-year-old female with altered mental status was subsequently intubated and found to have gastric content in her orotracheal area as well as slightly abnormal chest x-ray. Patient has been intubated and then using a T size scope. Tracheobronchial trees was explored there were no abnormalities of the distal trachea there was copious secretions that were purulent at the jana and extending into the right mainstem bronchus and right bronchus intermedius the secretions that he had not penetrated into the right middle lobe right lower lobe or right upper lobe copious secretions were also no signal noted in the left mainstem bronchus but were not noted in the left upper lobe lingula they had apparently also proceeded into the left lower lobe lavage of the left lower lobe was taken as well as the right lower lobe and these fluids were sent for appropriate cultures and studies patient tolerated procedure well a postprocedure SaO2 was 96% PREOPERATIVE DIAGNOSIS: aspiration into airway POSTOPERATIVE DIAGNOSIS: same OPERATION: Fiber optic bronchoscopy with bronchoalveolar lavage SURGEON: MATILDE WHITE ANESTHESIA: GA TISSUE REMOVED OR ALTERED: BAL LLL and RUL COMPLICATIONS: n/a ESTIMATED BLOOD LOSS: occ
[2018-10-13 18:29] LABS: VANCOMYCIN,TROUGH 18.1 ug/mL (5.0-20.0)
[2018-10-13] MEDS: DEXTROSE 5%-WATER 250 ML with VASOPRESSIN 100 UNIT IV PRN ×2 (18:53)
[2018-10-13 19:24] LABS: ALBUMIN 1.6 g/dL (3.5-5.0); ANION GAP 6 (5-19); BLOOD UREA NITROGEN 21 mg/dL (7-20); CALCIUM 9.2 mg/dL (8.4-10.2); CARBON DIOXIDE 12 mmol/L (22-30); CHLORIDE 127 mmol/L (98-107); GLUCOSE 93 mg/dL (75-110); POTASSIUM 3.3 mmol/L (3.6-5.0); SODIUM 145.2 mmol/L (137-145)
[2018-10-13] MEDS: ALBUMIN HUMAN 12.5 GM/50 ML RTUINJ IV SCH ×2 (19:33→20:36)
[2018-10-13] MEDS ORDERED: FUROSEMIDE INJ/PF 100 MG/10 ML SDV ONE (20:58)
[2018-10-13] MEDS ORDERED: LIDOCAINE 1% INJ-PF (10 MG/ML) 30 ML SDV ONE (21:29)
[2018-10-13] MEDS ORDERED: POTASSIUM CHLORIDE 20 MEQ/50 ML RTU IV ONE (21:30)
[2018-10-13] MEDS ORDERED: NORMAL SALINE 250 ML with FUROSEMIDE 250 MG IV PRN ×2 (22:00)
--- NOTE | 2018-10-13 22:16 | Operative Report ---
Nonrecallable Operative Report DATE OF SURGERY: 10/13/18 PREOPERATIVE DIAGNOSIS: Acute renal failure POSTOPERATIVE DIAGNOSIS: Same OPERATION: UltraSound directed insertion of right femoral vein dialysis catheter SURGEON: LISA SOSA ANESTHESIA: Local TISSUE REMOVED OR ALTERED: none COMPLICATIONS: none ESTIMATED BLOOD LOSS: 20 cc INTRAOPERATIVE FINDINGS: See below PROCEDURE: Summary procedure The right groin was exposed by taping the pannus and right thigh out of the field. The right groin was prepped and draped in sterile fashion. Surgical plan surgical timeout were conducted. Ultrasound was placed on the right groin and the common femoral vein identified. Skin was anesthetized with 1% plain lidocaine. Due to the depth of the target vein, several vena puncture efforts were made and eventually successful. Wire threaded into position tract dilated up with the 2 dilators and the try dialysis catheter threaded into position to its hub. There was excellent flush and aspiration through all 3 lm. The lumens were loaded with dilute heparin ;Biopatch sterile dressing was applied. Sterile dressing was applied. She tolerated procedure well. Concentrated heparin will be loaded into the catheter shortly
--- NOTE | 2018-10-13 22:21 | PDOC PROGRESS REPORT ---
Subjective Progress Note for:: 10/13/18 Subjective:: Patient intubated, she is anuric Reason For Visit: SEPSIS, UTI, AMS, ACUTE KIDNEY INJURY, DELIRIUM Physical Exam Vital Signs: Temp Pulse Resp BP Pulse Ox 96.4 F L 115 H 23 H 95/60 L 95 10/13/18 19:54 10/13/18 18:32 10/13/18 18:32 10/13/18 18:32 10/13/18 20:00 Intake & Output 10/12/18 10/13/18 10/14/18 06:59 06:59 06:59 Intake Total 4259 2397 1172 Output Total 1775 1180 131 Balance 2484 1217 1041 Weight 90.9 kg 91.4 kg Eye exam: PRESENT: PERRLA Respiratory exam: PRESENT: rhonchi Cardiovascular exam: PRESENT: +S1, +S2 GI/Abdominal exam: PRESENT: soft Results Laboratory Results: 10/13/18 04:10 10/13/18 18:53 10/13/18 10/13/18 10/13/18 04:10 04:10 04:10 WBC 15.4 H RBC 2.16 L Hgb 7.7 L Hct 23.4 L MCV 109 H MCH 35.6 H MCHC 32.9 RDW 24.9 H Plt Count 112 L Seg Neutrophils % 79.9 H Lymphocytes % 8.8 L Monocytes % 7.5 Eosinophils % 3.4 Basophils % 0.4 Absolute Neutrophils 12.3 H Absolute Lymphocytes 1.4 Absolute Monocytes 1.2 Absolute Eosinophils 0.5 Absolute Basophils 0.1 Carbonic Acid 0.77 L HCO3/H2CO3 Ratio 15:1 ABG pH 7.30 L ABG pCO2 25.6 L ABG pO2 93.9 ABG HCO3 12.2 L ABG O2 Saturation 96.6 ABG Base Excess -12.9 FiO2 30% Sodium 145.5 H Potassium 3.4 L Chloride 127 H Carbon Dioxide 11 L Anion Gap 8 BUN 20 Creatinine 1.79 H Est GFR ( Amer) 36 L Est GFR (Non-Af Amer) 29 L Glucose 99 Calcium 9.8 Magnesium 1.9 Albumin 10/13/18 18:53 WBC RBC Hgb Hct MCV MCH MCHC RDW Plt Count Seg Neutrophils % Lymphocytes % Monocytes % Eosinophils % Basophils % Absolute Neutrophils Absolute Lymphocytes Absolute Monocytes Absolute Eosinophils Absolute Basophils Carbonic Acid HCO3/H2CO3 Ratio ABG pH ABG pCO2 ABG pO2 ABG HCO3 ABG O2 Saturation ABG Base Excess FiO2 Sodium 145.2 H Potassium 3.3 L Chloride 127 H Carbon Dioxide 12 L Anion Gap 6 BUN 21 H Creatinine 2.01 H Est GFR ( Amer) 31 L Est GFR (Non-Af Amer) 26 L Glucose 93 Calcium 9.2 Magnesium Albumin 1.6 L 09/29/18 09/29/18 09/29/18 10:44 10:44 12:59 Creatine Kinase Cancelled CK-MB (CK-2) Troponin I Cancelled 0.028 NT-Pro-B Natriuret Pep 09/29/18 09/29/18 09/29/18 12:59 15:30 15:30 Creatine Kinase 77 161 H CK-MB (CK-2) 2.69 Troponin I 0.028 NT-Pro-B Natriuret Pep 09/29/18 09/29/18 09/30/18 18:59 18:59 00:59 Creatine Kinase 201 H 197 H CK-MB (CK-2) 3.45 Troponin I 0.023 NT-Pro-B Natriuret Pep 09/30/18 10/01/18 10/03/18 00:59 04:13 04:50 Creatine Kinase CK-MB (CK-2) 2.94 Troponin I 0.021 NT-Pro-B Natriuret Pep 2270 H 3170 H 10/09/18 04:50 Creatine Kinase CK-MB (CK-2) Troponin I NT-Pro-B Natriuret Pep 630 Impressions: Head CT 10/03/18 00:00 IMPRESSION: CHRONIC CHANGES OF ATROPHY AND MICROVASCULAR ISCHEMIA. NO ACUTE PROCESS. EVIDENCE OF ACUTE STROKE: NO. KUB X-Ray 10/05/18 00:00 IMPRESSION: Nasogastric tube tip and side port in the stomach Chest X-Ray 10/13/18 06:00 IMPRESSION: NO SIGNIFICANT CHANGE IN APPEARANCE OF THE CHEST. Assessment & Plan - Diagnosis (1) Septic shock Is this a current diagnosis for this admission?: Yes (2) UTI (urinary tract infection) Qualifiers: Urinary tract infection type: site unspecified Hematuria presence: with hematuria Qualified Code(s): N39.0 - Urinary tract infection, site not specified; R31.9 - Hematuria, unspecified Is this a current diagnosis for this admission?: Yes (3) Hypokalemia Is this a current diagnosis for this admission?: Yes (4) Hypomagnesemia Is this a current diagnosis for this admission?: Yes (5) Alcohol abuse Is this a current diagnosis for this admission?: Yes (6) Metabolic encephalopathy Is this a current diagnosis for this admission?: Yes (7) Hyperammonemia Is this a current diagnosis for this admission?: Yes (8) Alcohol withdrawal Qualifiers: Complication of substance-induced condition: with delirium Qualified Code(s): F10.231 - Alcohol dependence with withdrawal delirium Is this a current diagnosis for this admission?: Yes (9) Respiratory failure with hypoxia and hypercapnia Qualifiers: Chronicity: acute Qualified Code(s): J96.01 - Acute respiratory failure with hypoxia; J96.02 - Acute respiratory failure with hypercapnia Is this a current diagnosis for this admission?: Yes (10) Nosocomial pneumonia Is this a current diagnosis for this admission?: Yes (11) Hypotension Qualifiers: Hypotension type: unspecified hypotension type Qualified Code(s): I95.9 - Hypotension, unspecified Is this a current diagnosis for this admission?: Yes (12) Gastroparesis Is this a current diagnosis for this admission?: Yes (13) Acute kidney injury Is this a current diagnosis for this admission?: Yes Plan: She has acute oliguric kidney injury, she will need acute renal replacement therapy, she was seen by nephrology Dr. Ramires
[2018-10-13] MEDS ORDERED: HEPARIN SOD (PORCINE) 1,000 UNIT/ML 10 ML VIAL ONE (22:22)
[2018-10-13] MEDS: NORMAL SALINE 1000 ML 1,000 ML IV PRN (22:28)
[2018-10-14] MEDS ORDERED: NOREPINEPHRINE BITARTRATE INJ/PF 4 MG/4 ML SDV IV ONE (01:22)
[2018-10-14] MEDS: DEXTROSE 5%-WATER 250 ML with NOREPINEPHRINE BITARTRATE 4 MG IV PRN ×8 (01:31→20:59)
[2018-10-14 04:02] LABS: ARTERIAL BLOOD BASE EXCESS -16.2 mmol/L; ARTERIAL BLOOD HCO3 9.7 mmol/L (20-24); ARTERIAL BLOOD O2 SATURATION 95.9 % (94-98); ARTERIAL BLOOD PCO2 23.1 mmHg (35-45); ARTERIAL BLOOD PH 7.24 (7.35-7.45); ARTERIAL BLOOD PO2 91.4 mmHg (80-100); ARTERIAL BLOOD TOTAL CO2 10.4 mmol/L (21-25)
[2018-10-14 04:03] LABS: ARTERIAL BLOOD FIO2 30%
[2018-10-14 04:07] LABS: ABSOLUTE BASOPHILS # (AUTO) 0.2 10^3/uL (0.0-0.2); ABSOLUTE EOSINOPHILS # (AUTO) 0.6 10^3/uL (0.0-0.6); ABSOLUTE LYMPHOCYTES (AUTO) 1.8 10^3/uL (0.5-4.7); ABSOLUTE MONOCYTES (AUTO) 1.2 10^3/uL (0.1-1.4); ABSOLUTE NEUT (AUTO) 11.6 10^3/uL (1.7-8.2); BASOPHILS % (AUTO) 1.2 % (0-2); EOSINOPHILS % (AUTO) 3.8 % (0-6); HEMATOCRIT 24.5 % (36.0-47.0); LYMPHOCYTES % (AUTO) 11.4 % (13-45); MEAN CORPUSCULAR HEMOGLOBIN 35.5 pg (27.0-33.4); MEAN CORPUSCULAR HGB CONC 32.1 g/dL (32.0-36.0); MEAN CORPUSCULAR VOLUME 110 fl (80-97); PLATELET COUNT 127 10^3/uL (150-450); RED BLOOD COUNT 2.22 10^6/uL (3.72-5.28); RED CELL DISTRIBUTION WIDTH 24.4 % (11.5-14.0); SEGMENTED NEUTROPHILS % (AUTO) 75.6 % (42-78); TOTAL CELLS COUNTED % (AUTO) 100 %; WHITE BLOOD COUNT 15.4 10^3/uL (4.0-10.5)
[2018-10-14 04:15] LABS: BLOOD UREA NITROGEN 21 mg/dL (7-20); CALCIUM 9.9 mg/dL (8.4-10.2); CHLORIDE 125 mmol/L (98-107); GLUCOSE 119 mg/dL (75-110); POTASSIUM 3.6 mmol/L (3.6-5.0); SODIUM 145.2 mmol/L (137-145)
[2018-10-14 04:20] LABS: ANION GAP 12 (5-19)
[2018-10-14 04:25] LABS: ANISOCYTOSIS 3+; PLATELET COMMENT DECREASED; POIKILOCYTOSIS 1+; SPHEROCYTES 1+; TARGET CELLS SLIGHT; TEAR DROP CELLS SLIGHT
[2018-10-14 04:29] LABS: HEMOGLOBIN 7.9 g/dL (12.0-15.5)
[2018-10-14 04:30] LABS: CARBON DIOXIDE 8 mmol/L (22-30)
[2018-10-14] MEDS: METOCLOPRAMIDE HCL INJ/PF 10 MG/2 ML SDV IV SCH ×3 (05:11→22:19)
[2018-10-14] MEDS: PROPOFOL 1,000 MG/100 ML INFUS..BTL IV PRN ×3 (05:11→22:07)
--- NOTE | 2018-10-14 09:09 | RADIOLOGY REPORT (SQ) ---
EXAM DESCRIPTION: CHEST SINGLE VIEW COMPLETED DATE/TIME: 10/14/2018 6:57 am REASON FOR STUDY: resp failure COMPARISON: 10/13/2018 EXAM PARAMETERS: NUMBER OF VIEWS: One view. TECHNIQUE: Single frontal radiographic view of the chest acquired. RADIATION DOSE: NA LIMITATIONS: None. FINDINGS: LUNGS AND PLEURA: No significant interval change in the appearance of the right apical--r ight upper lobe pleural thickening and linear parenchymal density extending to the right suprahilar r egion. The pleuroparenchymal changes -pleural effusion in the right lower lobe, unchanged. Patchy a irspace disease in the left lingula -left lower lobe, unchanged findings. Small left pleural effusi on. MEDIASTINUM AND HILAR STRUCTURES: Stable appearance. HEART AND VASCULAR STRUCTURES: Stable appearance. BONES: No acute findings. HARDWARE: Stable right central line, endotracheal and nasogastric tubes. OTHER: No other significant finding. IMPRESSION: 1. No significant interval changes since the prior study dated 10/13/2018. TECHNICAL DOCUMENTATION: JOB ID: [id number] [employer]- All Rights Reserved Reading location - IP/workstation name: [email or web address]
[2018-10-14] MEDS: THIAMINE HCL 100 MG TABLET NG SCH (10:22)
[2018-10-14] MEDS: SODIUM BICARBONATE 650 MG TABLET PO SCH ×2 (10:22→22:19)
[2018-10-14] MEDS: NORMAL SALINE 1000 ML 1,000 ML with POTASSIUM CHLORIDE 20 MEQ, MAGNESIUM SULFATE 8 MEQ,... IV SCH ×4 (10:24)
[2018-10-14] MEDS: ALBUMIN HUMAN 12.5 GM/50 ML RTUINJ IV SCH ×4 (10:31→14:51)
[2018-10-14] MEDS: DEXTROSE 5%-WATER 250 ML with VASOPRESSIN 100 UNIT IV PRN ×2 (10:36)
[2018-10-14] MEDS ORDERED: PHENYLEPHRINE HCL INJ/PF 10 MG/1 ML SDV ONE (12:49)
[2018-10-14] MEDS ORDERED: NORMAL SALINE 1000 ML 1,000 ML IV PRN (13:46)
[2018-10-14] MEDS: DEXTROSE 5%-WATER 250 ML with PHENYLEPHRINE HCL 40 MG IV PRN ×4 (14:39→20:57)
--- NOTE | 2018-10-14 16:29 | PDOC PROGRESS REPORT ---
Subjective Progress Note for:: 10/14/18 Subjective:: I saw the patient several times on dialysis this afternoon. Patient did not really produce more urine than before on Lasix drip overnight. I was told that the Lasix drip was also stopped early in the morning possibly even the patient's blood pressure dropped requiring initiation of pressors. Her metabolic acidosis was getting worse so I decided to start the patient on renal replacement therapy. Patient also became hypotensive overnight and needing to restart vasopressors. I saw the patient during initiation of hemodialysis at around 12:45 PM today. During the first 30 minutes the patient's blood pressure dropped to 99/66 so ultrafiltration was turned off for a while. Patient was given 12.5 g of IV albumin prior to dialysis and is in receiving another 12.5 g during the first few minutes of dialysis. I then ordered 25 more grams of IV albumin to be given during dialysis treatment. The patient at the time was in Levoped and vasopressin. So only use Beny-Synephrine was initiated. I saw the patient again at around 1:40 PM and at that time patient's blood pressure is improved with 3 pressors and IV albumin. We resume ultrafiltration at the point until we finish dialysis treatment. Reason For Visit: SEPSIS, UTI, AMS, ACUTE KIDNEY INJURY, DELIRIUM Physical Exam Vital Signs: Temp Pulse Resp BP Pulse Ox 97.9 F 87 25 H 98/80 L 100 10/14/18 14:37 10/14/18 12:00 10/14/18 14:37 10/14/18 14:37 10/14/18 14:37 Intake & Output 10/13/18 10/14/18 10/15/18 06:59 06:59 06:59 Intake Total 2397 1533 1560 Output Total 1180 586 350 Balance 4104 341 1474 Weight 91.4 kg 92.5 kg Vitals during dialysis: Initially blood pressure of 99/66, heart rate of 82, respiration of 14 and oxygen saturation of 98%. This was on Levoped in base of present drip. When I came back her blood pressure went up on 125/87, heart rate of 97, blood flow rate of 250 mL/min and dialysate flow rate of 500 mL/min while on 3 pressors with initiation of Beny-Synephrine. Exam: General appearance: PRESENT: Intubated and sedated Head exam: PRESENT: atraumatic, normocephalic Eye exam: PRESENT: Eyes closed Neck exam: ABSENT: JVD Respiratory exam: PRESENT: Coarse breath sounds. ABSENT: crackles, rales, rhonchi, unlabored, wheezes Cardiovascular exam: PRESENT: Regular rate rhythm -+S1, +S2. ABSENT: diastolic murmur, systolic murmur GI/Abdominal exam: PRESENT: Hypoactive bowel sounds, soft. Obese ABSENT: guarding, mass, tenderness Extremities exam: Bilateral upper extremities edema and grade 2 bilateral lower extremities edema. Virtually the patient has anasarca. Neurological exam: PRESENT: Sedated. Skin exam: PRESENT: dry, warm, Results Laboratory Results: 10/14/18 03:48 10/14/18 03:48 10/13/18 10/14/18 10/14/18 18:53 03:48 03:48 WBC RBC Hgb Hct MCV MCH MCHC RDW Plt Count Seg Neutrophils % Lymphocytes % Monocytes % Eosinophils % Basophils % Absolute Neutrophils Absolute Lymphocytes Absolute Monocytes Absolute Eosinophils Absolute Basophils Carbonic Acid 0.70 L HCO3/H2CO3 Ratio 13:1 ABG pH 7.24 L ABG pCO2 23.1 L ABG pO2 91.4 ABG HCO3 9.7 L ABG O2 Saturation 95.9 ABG Base Excess -16.2 FiO2 30% Sodium 145.2 H 145.2 H Potassium 3.3 L 3.6 Chloride 127 H 125 H Carbon Dioxide 12 L 8 L* Anion Gap 6 12 BUN 21 H 21 H Creatinine 2.01 H 2.13 H Est GFR ( Amer) 31 L 29 L Est GFR (Non-Af Amer) 26 L 24 L Glucose 93 119 H Calcium 9.2 9.9 Magnesium 2.0 Albumin 1.6 L 10/14/18 03:48 WBC 15.4 H RBC 2.22 L Hgb 7.9 L Hct 24.5 L MCV 110 H MCH 35.5 H MCHC 32.1 RDW 24.4 H Plt Count 127 L Seg Neutrophils % 75.6 Lymphocytes % 11.4 L Monocytes % 8.0 Eosinophils % 3.8 Basophils % 1.2 Absolute Neutrophils 11.6 H Absolute Lymphocytes 1.8 Absolute Monocytes 1.2 Absolute Eosinophils 0.6 Absolute Basophils 0.2 Carbonic Acid HCO3/H2CO3 Ratio ABG pH ABG pCO2 ABG pO2 ABG HCO3 ABG O2 Saturation ABG Base Excess FiO2 Sodium Potassium Chloride Carbon Dioxide Anion Gap BUN Creatinine Est GFR ( Amer) Est GFR (Non-Af Amer) Glucose Calcium Magnesium Albumin 10/05/18 11:30 Bronchial Washings Fungal Smear - Final 10/05/18 11:30 Bronchial Washings Fungal Smear - Final 09/29/18 09/29/18 09/29/18 10:44 10:44 12:59 Creatine Kinase Cancelled CK-MB (CK-2) Troponin I Cancelled 0.028 NT-Pro-B Natriuret Pep 09/29/18 09/29/18 09/29/18 12:59 15:30 15:30 Creatine Kinase 77 161 H CK-MB (CK-2) 2.69 Troponin I 0.028 NT-Pro-B Natriuret Pep 09/29/18 09/29/18 09/30/18 18:59 18:59 00:59 Creatine Kinase 201 H 197 H CK-MB (CK-2) 3.45 Troponin I 0.023 NT-Pro-B Natriuret Pep 09/30/18 10/01/18 10/03/18 00:59 04:13 04:50 Creatine Kinase CK-MB (CK-2) 2.94 Troponin I 0.021 NT-Pro-B Natriuret Pep 2270 H 3170 H 10/09/18 04:50 Creatine Kinase CK-MB (CK-2) Troponin I NT-Pro-B Natriuret Pep 630 Impressions: Head CT 10/03/18 00:00 IMPRESSION: CHRONIC CHANGES OF ATROPHY AND MICROVASCULAR ISCHEMIA. NO ACUTE PROCESS. EVIDENCE OF ACUTE STROKE: NO. KUB X-Ray 10/05/18 00:00 IMPRESSION: Nasogastric tube tip and side port in the stomach Chest X-Ray 10/14/18 06:00 IMPRESSION: 1. No significant interval changes since the prior study dated 10/13/2018. Assessment & Plan - Diagnosis (1) Acute kidney injury Is this a current diagnosis for this admission?: Yes Plan: Secondary to multifactorial ATN secondary to sepsis, hypertension, toxic levels of vancomycin at one point. Patient's vancomycin is currently on hold. Patient remains to have decreased urine output. With hypervolemic state and worsening metabolic acidosis we did dialysis and the patient today. We did dialysis today for 3 hours, using the patient's trialysis catheter, with 3 potassium bath, blood flow rate of 250 mL per minute, dialysate flow rate of 500 mL per minute, ultrafiltration 2100 mL was only tolerated, no heparin . Patient was monitored throughout the whole treatment and prescription was adj usted accordingly as a stated above. The patient will most likely need replacement therapy again on Wednesday. Meanwhile we will going to continue Lasix drip at 20 mL an hour if she can tolerate it with the pressors. The other option for this patient is continuous renal replacement therapy which unfortunately we do not offer in this hospital. If she continues to require maximum doses of pressors and the patient's blood pressure continues to go down despite that that might be a consideration but patient needs to be transferred to tertiary care facility for that. All the patient is here we will try intermittent hemodialysis if tolerated. (2) Acute tubular necrosis Is this a current diagnosis for this admission?: Yes (3) Sepsis Qualifiers: Sepsis type: sepsis due to unspecified organism Qualified Code(s): A41.9 - Sepsis, unspecified organism Is this a current diagnosis for this admission?: Yes (4) Escherichia coli urinary tract infection Is this a current diagnosis for this admission?: Yes (5) Hypernatremia Is this a current diagnosis for this admission?: Yes Plan: Continue water flushes through the NG tube. (6) Hypokalemia Is this a current diagnosis for this admission?: Yes Plan: Replace as necessary. (7) Metabolic encephalopathy Is this a current diagnosis for this admission?: Yes (8) Metabolic acidosis Is this a current diagnosis for this admission?: Yes Plan: Hopefully dialysis with either partially corrected completely correct this. (9) Respiratory failure with hypoxia and hypercapnia Qualifiers: Chronicity: acute Qualified Code(s): J96.01 - Acute respiratory failure with hypoxia; J96.02 - Acute respiratory failure with hypercapnia Is this a current diagnosis for this admission?: Yes (10) Hypoalbuminemia Is this a current diagnosis for this admission?: Yes Plan: Agree with some tube feedings. May need to give intermittent IV albumin. (11) Nosocomial pneumonia Is this a current diagnosis for this admission?: Yes (12) Alcoholism Is this a current diagnosis for this admission?: Yes (13) Anemia Qualifiers: Anemia type: unspecified type Qualified Code(s): D64.9 - Anemia, unspecified Is this a current diagnosis for this admission?: Yes - Time Time with patient: Greater than 35 minutes
[2018-10-14] MEDS: NORMAL SALINE 250 ML with FUROSEMIDE 250 MG IV PRN ×2 (16:52)
[2018-10-14] MEDS: VANCOMYCIN HCL 500 MG in DEXTROSE 5%-WATER 100 ML IV SCH (17:16)
[2018-10-14] MEDS: INSULIN LISPRO 100 UNIT/ML 3 ML VIAL SUBCUT SCH (18:08)
--- NOTE | 2018-10-14 22:25 | PDOC PROGRESS REPORT ---
Subjective Progress Note for:: 10/14/18 Subjective:: Patient on mechanical ventilation Reason For Visit: SEPSIS, UTI, AMS, ACUTE KIDNEY INJURY, DELIRIUM Physical Exam Vital Signs: Temp Pulse Resp BP Pulse Ox 99.0 F 87 22 H 130/73 H 100 10/14/18 21:40 10/14/18 18:00 10/14/18 18:23 10/14/18 18:23 10/14/18 18:23 Intake & Output 10/13/18 10/14/18 10/15/18 06:59 06:59 06:59 Intake Total 2397 1533 2191 Output Total 0927 634 6913 Balance 1217 947 -934 Weight 91.4 kg 92.5 kg General appearance: PRESENT: no acute distress Respiratory exam: PRESENT: rhonchi Cardiovascular exam: PRESENT: +S1, +S2 Results Laboratory Results: 10/14/18 03:48 10/14/18 03:48 10/14/18 10/14/18 10/14/18 03:48 03:48 03:48 WBC 15.4 H RBC 2.22 L Hgb 7.9 L Hct 24.5 L MCV 110 H MCH 35.5 H MCHC 32.1 RDW 24.4 H Plt Count 127 L Seg Neutrophils % 75.6 Lymphocytes % 11.4 L Monocytes % 8.0 Eosinophils % 3.8 Basophils % 1.2 Absolute Neutrophils 11.6 H Absolute Lymphocytes 1.8 Absolute Monocytes 1.2 Absolute Eosinophils 0.6 Absolute Basophils 0.2 Carbonic Acid 0.70 L HCO3/H2CO3 Ratio 13:1 ABG pH 7.24 L ABG pCO2 23.1 L ABG pO2 91.4 ABG HCO3 9.7 L ABG O2 Saturation 95.9 ABG Base Excess -16.2 FiO2 30% Sodium 145.2 H Potassium 3.6 Chloride 125 H Carbon Dioxide 8 L* Anion Gap 12 BUN 21 H Creatinine 2.13 H Est GFR ( Amer) 29 L Est GFR (Non-Af Amer) 24 L Glucose 119 H Calcium 9.9 Magnesium 2.0 10/05/18 11:30 Bronchial Washings Fungal Smear - Final 10/05/18 11:30 Bronchial Washings Fungal Smear - Final 09/29/18 09/29/18 09/29/18 10:44 10:44 12:59 Creatine Kinase Cancelled CK-MB (CK-2) Troponin I Cancelled 0.028 NT-Pro-B Natriuret Pep 09/29/18 09/29/18 09/29/18 12:59 15:30 15:30 Creatine Kinase 77 161 H CK-MB (CK-2) 2.69 Troponin I 0.028 NT-Pro-B Natriuret Pep 09/29/18 09/29/18 09/30/18 18:59 18:59 00:59 Creatine Kinase 201 H 197 H CK-MB (CK-2) 3.45 Troponin I 0.023 NT-Pro-B Natriuret Pep 09/30/18 10/01/18 10/03/18 00:59 04:13 04:50 Creatine Kinase CK-MB (CK-2) 2.94 Troponin I 0.021 NT-Pro-B Natriuret Pep 2270 H 3170 H 10/09/18 04:50 Creatine Kinase CK-MB (CK-2) Troponin I NT-Pro-B Natriuret Pep 630 Impressions: Head CT 10/03/18 00:00 IMPRESSION: CHRONIC CHANGES OF ATROPHY AND MICROVASCULAR ISCHEMIA. NO ACUTE PROCESS. EVIDENCE OF ACUTE STROKE: NO. KUB X-Ray 10/05/18 00:00 IMPRESSION: Nasogastric tube tip and side port in the stomach Chest X-Ray 10/14/18 06:00 IMPRESSION: 1. No significant interval changes since the prior study dated 10/13/2018. Assessment & Plan - Diagnosis (1) Septic shock Is this a current diagnosis for this admission?: Yes (2) UTI (urinary tract infection) Qualifiers: Urinary tract infection type: site unspecified Hematuria presence: with hematuria Qualified Code(s): N39.0 - Urinary tract infection, site not specified; R31.9 - Hematuria, unspecified Is this a current diagnosis for this admission?: Yes (3) Hypokalemia Is this a current diagnosis for this admission?: Yes (4) Hypomagnesemia Is this a current diagnosis for this admission?: Yes (5) Alcohol abuse Is this a current diagnosis for this admission?: Yes (6) Metabolic encephalopathy Is this a current diagnosis for this admission?: Yes (7) Hyperammonemia Is this a current diagnosis for this admission?: Yes (8) Alcohol withdrawal Qualifiers: Complication of substance-induced condition: with delirium Qualified Code(s): F10.231 - Alcohol dependence with withdrawal delirium Is this a current diagnosis for this admission?: Yes (9) Respiratory failure with hypoxia and hypercapnia Qualifiers: Chronicity: acute Qualified Code(s): J96.01 - Acute respiratory failure with hypoxia; J96.02 - Acute respiratory failure with hypercapnia Is this a current diagnosis for this admission?: Yes Plan: She was continue on mechanical ventilation (10) Nosocomial pneumonia Is this a current diagnosis for this admission?: Yes (11) Hypotension Qualifiers: Hypotension type: unspecified hypotension type Qualified Code(s): I95.9 - Hypotension, unspecified Is this a current diagnosis for this admission?: Yes Plan: She developed low blood pressure during hemodialysis, presently on IV vasopressors, Levophed, vasopressin (12) Gastroparesis Is this a current diagnosis for this admission?: Yes (13) Acute kidney injury Is this a current diagnosis for this admission?: Yes Plan: She had hemodialysis today, developed low blood pressure requiring pressors
[2018-10-15] MEDS: INSULIN LISPRO 100 UNIT/ML 3 ML VIAL SUBCUT SCH ×5 (01:48→23:09)
[2018-10-15] MEDS: NORMAL SALINE 1000 ML 1,000 ML IV PRN (02:34)
[2018-10-15] MEDS: DEXTROSE 5%-WATER 250 ML with NOREPINEPHRINE BITARTRATE 4 MG IV PRN ×6 (02:54→17:49)
[2018-10-15 04:32] LABS: ARTERIAL BLOOD BASE EXCESS -5.4 mmol/L; ARTERIAL BLOOD FIO2 45%; ARTERIAL BLOOD H2CO3 0.89 mmol/L (1.05-1.35); ARTERIAL BLOOD HCO3 18.4 mmol/L (20-24); ARTERIAL BLOOD O2 SATURATION 97.2 % (94-98); ARTERIAL BLOOD PCO2 29.5 mmHg (35-45); ARTERIAL BLOOD PH 7.41 (7.35-7.45); ARTERIAL BLOOD PO2 91.3 mmHg (80-100); ARTERIAL BLOOD TOTAL CO2 19.4 mmol/L (21-25)
[2018-10-15 04:52] LABS: ALBUMIN 2.5 g/dL (3.5-5.0); ANION GAP 13 (5-19); BLOOD UREA NITROGEN 14 mg/dL (7-20); CALCIUM 9.1 mg/dL (8.4-10.2); CARBON DIOXIDE 15 mmol/L (22-30); CHLORIDE 112 mmol/L (98-107); GLUCOSE 137 mg/dL (75-110); SODIUM 139.5 mmol/L (137-145)
[2018-10-15 05:13] LABS: HEMATOCRIT 21.8 % (36.0-47.0); MEAN CORPUSCULAR HEMOGLOBIN 34.7 pg (27.0-33.4); MEAN CORPUSCULAR HGB CONC 33.2 g/dL (32.0-36.0); RED BLOOD COUNT 2.09 10^6/uL (3.72-5.28); RED CELL DISTRIBUTION WIDTH 23.8 % (11.5-14.0); WHITE BLOOD COUNT 14.8 10^3/uL (4.0-10.5)
[2018-10-15 05:19] LABS: POTASSIUM 2.9 mmol/L (3.6-5.0)
[2018-10-15 05:20] LABS: MEAN CORPUSCULAR VOLUME 105 fl (80-97); PLATELET COUNT 85 10^3/uL (150-450)
[2018-10-15 05:22] LABS: HEMOGLOBIN 7.2 g/dL (12.0-15.5)
[2018-10-15 05:31] LABS: ABSOLUTE LYMPHOCYTES# (MANUAL) 2.2 10^3/uL (0.5-4.7); ABSOLUTE MONOCYTES # (MANUAL) 0.7 10^3/uL (0.1-1.4); ABSOLUTE NEUTROPHILS# (MANUAL) 11.4 10^3/uL (1.7-8.2); BASOPHILS % (MANUAL) 0 % (0-2); EOSINOPHILS % (MANUAL) 3 % (0-6); LYMPHOCYTES % (MANUAL) 15 % (13-45); MONOCYTES % (MANUAL) 5 % (3-13); SEGMENTED NEUTROPHILS % (MAN) 77 % (42-78); TOTAL CELLS COUNTED 100
[2018-10-15 05:32] LABS: ANISOCYTOSIS 3+; POLYCHROMASIA 3+
[2018-10-15] MEDS: NORMAL SALINE 250 ML with FUROSEMIDE 250 MG IV PRN ×4 (05:32→17:49)
[2018-10-15 05:33] LABS: PLATELET COMMENT DECREASED
[2018-10-15] MEDS: METOCLOPRAMIDE HCL INJ/PF 10 MG/2 ML SDV IV SCH ×3 (05:57→22:11)
[2018-10-15] MEDS: POTASSIUM CHLORIDE 20 MEQ/50 ML RTU IV SCH ×3 (06:47→13:20)
[2018-10-15 07:42] LABS: HEPATITIS A AB IGM Negative (Negative); HEPATITIS B CORE AB IGM Negative (Negative); HEPATITS B SURFACE ANTIGEN Negative (Negative)
--- NOTE | 2018-10-15 07:46 | RADIOLOGY REPORT (SQ) ---
EXAM DESCRIPTION: XR CHEST 1 VIEW COMPLETED DATE/TME: 10/15/2018 06:00 CLINICAL HISTORY: 53 years Female, resp failure COMPARISON: One day prior. NUMBER OF VIEWS/TECHNIQUE: 1/AP FINDINGS: Moderate central edema pattern. Moderate patchy and streaky opacity of the right upper hemithorax. Small bibasilar opacity-effusion.Adequate appearing endotracheal tube. Likely adequate appearing enteric tube partially obscured. Adequate appearing right jugular central line. Normal cardiac silhouette size. No pneumothorax. Stable bony thorax. IMPRESSION: No significant change.
[2018-10-15] MEDS: PROPOFOL 1,000 MG/100 ML INFUS..BTL IV PRN ×3 (07:58→23:46)
[2018-10-15] MEDS: NORMAL SALINE 1000 ML 1,000 ML with POTASSIUM CHLORIDE 20 MEQ, MAGNESIUM SULFATE 8 MEQ,... IV SCH ×4 (10:31)
[2018-10-15] MEDS: SODIUM BICARBONATE 650 MG TABLET PO SCH ×2 (10:31→22:11)
[2018-10-15] MEDS: THIAMINE HCL 100 MG TABLET NG SCH (10:32)
--- NOTE | 2018-10-15 11:57 | PDOC PROGRESS REPORT ---
Subjective Progress Note for:: 10/15/18 Subjective:: Patient is currently still intubated on the vent Patient still required pressor to maintain the blood pressures Patient's potassium is low currently replacing Patient is currently follow with the pulmonary and follow with the nephrology Reason For Visit: SEPSIS, UTI, AMS, ACUTE KIDNEY INJURY, DELIRIUM Physical Exam Vital Signs: Temp Pulse Resp BP Pulse Ox 98.2 F 101 H 21 H 75/55 L 100 10/15/18 10:00 10/15/18 10:00 10/15/18 10:00 10/15/18 10:00 10/15/18 10:00 Intake & Output 10/14/18 10/15/18 10/16/18 06:59 06:59 06:59 Intake Total 1533 4062 1255 Output Total 586 3975 400 Balance 947 87 855 Weight 92.5 kg 93.2 kg Physical Exam: Currently intubated under ventilation's Eye exam: PRESENT: PERRLA Respiratory exam: PRESENT: clear to auscultation dawna Cardiovascular exam: PRESENT: +S1, +S2 GI/Abdominal exam: PRESENT: normal bowel sounds Additional comments: under sedation Results Laboratory Results: 10/15/18 04:51 10/15/18 04:15 10/15/18 10/15/18 10/15/18 04:15 04:15 04:22 WBC Cancelled RBC Cancelled Hgb Cancelled Hct Cancelled MCV Cancelled MCH Cancelled MCHC Cancelled RDW Cancelled Plt Count Cancelled Seg Neutrophils % Cancelled Lymphocytes % Cancelled Monocytes % Cancelled Eosinophils % Cancelled Basophils % Cancelled Absolute Neutrophils Cancelled Absolute Lymphocytes Cancelled Absolute Monocytes Cancelled Absolute Eosinophils Cancelled Absolute Basophils Cancelled Carbonic Acid 0.89 L HCO3/H2CO3 Ratio 20:1 ABG pH 7.41 ABG pCO2 29.5 L ABG pO2 91.3 ABG HCO3 18.4 L ABG O2 Saturation 97.2 ABG Base Excess -5.4 FiO2 45% Sodium 139.5 Potassium 2.9 L* Chloride 112 H Carbon Dioxide 15 L Anion Gap 13 BUN 14 Creatinine 1.85 H Est GFR ( Amer) 34 L Est GFR (Non-Af Amer) 28 L Glucose 137 H Calcium 9.1 Magnesium 1.9 Albumin 2.5 L 10/15/18 04:51 WBC 14.8 H RBC 2.09 L Hgb 7.2 L Hct 21.8 L MCV 105 H D MCH 34.7 H MCHC 33.2 RDW 23.8 H Plt Count 85 L Seg Neutrophils % Not Reportable Lymphocytes % Not Reportable Monocytes % Not Reportable Eosinophils % Not Reportable Basophils % Not Reportable Absolute Neutrophils Not Reportable Absolute Lymphocytes Not Reportable Absolute Monocytes Not Reportable Absolute Eosinophils Not Reportable Absolute Basophils Not Reportable Carbonic Acid HCO3/H2CO3 Ratio ABG pH ABG pCO2 ABG pO2 ABG HCO3 ABG O2 Saturation ABG Base Excess FiO2 Sodium Potassium Chloride Carbon Dioxide Anion Gap BUN Creatinine Est GFR ( Amer) Est GFR (Non-Af Amer) Glucose Calcium Magnesium Albumin 10/13/18 13:58 Sputum Gram Stain - Final 10/13/18 13:58 Sputum Sputum Culture - Final Yeast, Not Kaylee Albicans Greatly Reduced Normal Uzma 10/05/18 11:30 Bronchial Washings Fungal Smear - Final 10/05/18 11:30 Bronchial Washings Fungal Smear - Final 09/29/18 09/29/18 09/29/18 10:44 10:44 12:59 Creatine Kinase Cancelled CK-MB (CK-2) Troponin I Cancelled 0.028 NT-Pro-B Natriuret Pep 09/29/18 09/29/18 09/29/18 12:59 15:30 15:30 Creatine Kinase 77 161 H CK-MB (CK-2) 2.69 Troponin I 0.028 NT-Pro-B Natriuret Pep 09/29/18 09/29/18 09/30/18 18:59 18:59 00:59 Creatine Kinase 201 H 197 H CK-MB (CK-2) 3.45 Troponin I 0.023 NT-Pro-B Natriuret Pep 09/30/18 10/01/18 10/03/18 00:59 04:13 04:50 Creatine Kinase CK-MB (CK-2) 2.94 Troponin I 0.021 NT-Pro-B Natriuret Pep 2270 H 3170 H 10/09/18 04:50 Creatine Kinase CK-MB (CK-2) Troponin I NT-Pro-B Natriuret Pep 630 Impressions: Head CT 10/03/18 00:00 IMPRESSION: CHRONIC CHANGES OF ATROPHY AND MICROVASCULAR ISCHEMIA. NO ACUTE PROCESS. EVIDENCE OF ACUTE STROKE: NO. KUB X-Ray 10/05/18 00:00 IMPRESSION: Nasogastric tube tip and side port in the stomach Chest X-Ray 10/15/18 06:00 IMPRESSION: No significant change. Assessment & Plan - Diagnosis (1) Hypokalemia Is this a current diagnosis for this admission?: Yes Plan: Replace the potassium (2) Hypomagnesemia Is this a current diagnosis for this admission?: Yes Plan: Check the magnesium (3) Alcoholic liver disease Is this a current diagnosis for this admission?: Yes (4) Anemia Qualifiers: Anemia type: unspecified type Qualified Code(s): D64.9 - Anemia, unspecified Is this a current diagnosis for this admission?: Yes (5) Alcohol abuse Is this a current diagnosis for this admission?: Yes (6) UTI (urinary tract infection) Qualifiers: Urinary tract infection type: site unspecified Hematuria presence: with hematuria Qualified Code(s): N39.0 - Urinary tract infection, site not specified; R31.9 - Hematuria, unspecified Is this a current diagnosis for this admission?: Yes (7) Respiratory failure Is this a current diagnosis for this admission?: Yes Plan: Currently all intubated follow with the pulmonary (8) Renal failure Qualifiers: Chronic kidney disease stage: on chronic dialysis Is this a current diagnosis for this admission?: Yes Plan: Currently on renal replacement therapy per nephrology (9) Alcohol withdrawal Qualifiers: Complication of substance-induced condition: with delirium Qualified Code(s): F10.231 - Alcohol dependence with withdrawal delirium Is this a current diagnosis for this admission?: Yes (10) Septic shock Is this a current diagnosis for this admission?: Yes - Time Time Spent with patient: 35 or more minutes Medications reviewed and adjusted accordingly: Yes Anticipated discharge: Other Within: Other - Plan Summary Plan Summary: Continues follow with the nephrology and pulmonary Continues to current medications the poor prognosis
[2018-10-15] MEDS: PANTOPRAZOLE SODIUM 40 MG VIAL IV SCH (17:50)
[2018-10-15 18:38] LABS: VANCOMYCIN,TROUGH 18.2 ug/mL (5.0-20.0)
[2018-10-16] MEDS: DEXTROSE 5%-WATER 250 ML with NOREPINEPHRINE BITARTRATE 4 MG IV PRN ×4 (01:56→18:16)
[2018-10-16 05:39] LABS: ABSOLUTE BASOPHILS # (AUTO) 0.1 10^3/uL (0.0-0.2); ABSOLUTE EOSINOPHILS # (AUTO) 0.7 10^3/uL (0.0-0.6); ABSOLUTE MONOCYTES (AUTO) 0.7 10^3/uL (0.1-1.4); ABSOLUTE NEUT (AUTO) 9.4 10^3/uL (1.7-8.2); BASOPHILS % (AUTO) 0.4 % (0-2); EOSINOPHILS % (AUTO) 5.8 % (0-6); HEMATOCRIT 29.7 % (36.0-47.0); LYMPHOCYTES % (AUTO) 8.7 % (13-45); MEAN CORPUSCULAR HEMOGLOBIN 32.7 pg (27.0-33.4); MEAN CORPUSCULAR HGB CONC 34.2 g/dL (32.0-36.0); MONOCYTES % (AUTO) 6.3 % (3-13); RED BLOOD COUNT 3.11 10^6/uL (3.72-5.28); SEGMENTED NEUTROPHILS % (AUTO) 78.8 % (42-78); TOTAL CELLS COUNTED % (AUTO) 100 %; WHITE BLOOD COUNT 11.9 10^3/uL (4.0-10.5)
[2018-10-16] MEDS: INSULIN LISPRO 100 UNIT/ML 3 ML VIAL SUBCUT SCH ×3 (05:43→18:16)
[2018-10-16] MEDS: PANTOPRAZOLE SODIUM 40 MG VIAL IV SCH ×2 (05:43→18:15)
[2018-10-16] MEDS: METOCLOPRAMIDE HCL INJ/PF 10 MG/2 ML SDV IV SCH ×3 (05:44→21:46)
[2018-10-16 05:47] LABS: ARTERIAL BLOOD BASE EXCESS -6.6 mmol/L; ARTERIAL BLOOD H2CO3 0.82 mmol/L (1.05-1.35); ARTERIAL BLOOD HCO3 16.8 mmol/L (20-24); ARTERIAL BLOOD O2 SATURATION 95.5 % (94-98); ARTERIAL BLOOD PCO2 27.3 mmHg (35-45); ARTERIAL BLOOD PH 7.41 (7.35-7.45); ARTERIAL BLOOD PO2 75.6 mmHg (80-100); ARTERIAL BLOOD TOTAL CO2 17.7 mmol/L (21-25)
[2018-10-16 05:49] LABS: ARTERIAL BLOOD FIO2 40%
[2018-10-16 06:03] LABS: ALANINE AMINOTRANSFERASE 19 U/L (9-52); ALBUMIN 2.2 g/dL (3.5-5.0); ALKALINE PHOSPHATASE 117 U/L (38-126); ANION GAP 11 (5-19); ASPARTATE AMINO TRANSFERASE 36 U/L (14-36); BILIRUBIN,DIRECT 1.8 mg/dL (0.0-0.4); BILIRUBIN,TOTAL 2.4 mg/dL (0.2-1.3); BLOOD UREA NITROGEN 14 mg/dL (7-20); CALCIUM 9.2 mg/dL (8.4-10.2); CARBON DIOXIDE 18 mmol/L (22-30); CHLORIDE 110 mmol/L (98-107); GLUCOSE 110 mg/dL (75-110); PHOSPHORUS 3.5 mg/dL (2.5-4.5); POTASSIUM 3.2 mmol/L (3.6-5.0); SODIUM 139.4 mmol/L (137-145); TOTAL PROTEIN 5.8 g/dL (6.3-8.2)
[2018-10-16 06:04] LABS: PLATELET COUNT 66 10^3/uL (150-450)
[2018-10-16 06:06] LABS: HEMOGLOBIN 10.2 g/dL (12.0-15.5); MEAN CORPUSCULAR VOLUME 96 fl (80-97)
[2018-10-16 06:12] LABS: PLATELET COMMENT DECREASED
[2018-10-16 06:14] LABS: ANISOCYTOSIS 3+; OVALOCYTES SLIGHT; POIKILOCYTOSIS SLIGHT; POLYCHROMASIA SLIGHT; TARGET CELLS SLIGHT
[2018-10-16] MEDS: POTASSIUM CHLORIDE 20 MEQ/50 ML RTU IV SCH ×2 (06:39→08:58)
--- NOTE | 2018-10-16 06:45 | RADIOLOGY REPORT (SQ) ---
EXAM DESCRIPTION: XR CHEST 1 VIEW COMPLETED DATE/TME: 10/16/2018 06:00 CLINICAL HISTORY: 53 years Female, resp failure COMPARISON: One day prior. NUMBER OF VIEWS/TECHNIQUE: 1/AP FINDINGS: Moderate mixed interstitial and airspace opacities include moderate patchy left medial opacity, moderate curvilinear and bandlike opacity of the right upper hemithorax, and moderate right layered effusion. Moderate right basilar opacity.Adequate appearing endotracheal tube. Likely adequate appearing enteric tube partially obscured. Adequate appearing right jugular central line. Normal cardiac silhouette size. No pneumothorax. Stable bony thorax. IMPRESSION: No significant change.
[2018-10-16] MEDS: THIAMINE HCL 100 MG TABLET NG SCH (09:03)
[2018-10-16] MEDS: NORMAL SALINE 250 ML with FUROSEMIDE 250 MG IV PRN ×2 (09:03)
[2018-10-16] MEDS: SODIUM BICARBONATE 650 MG TABLET PO SCH ×2 (09:04→21:45)
[2018-10-16] MEDS: NORMAL SALINE 1000 ML 1,000 ML with POTASSIUM CHLORIDE 20 MEQ, MAGNESIUM SULFATE 8 MEQ,... IV SCH ×4 (09:04)
--- NOTE | 2018-10-16 10:50 | PDOC PROGRESS REPORT ---
Subjective Progress Note for:: 10/16/18 Subjective:: Patient hemoglobin is low Patient is received the 2 units of the bloods Patient has a history of GI ulcers in the past Start on a Protonix IV will consult the GI Patient's platelet count is running low will ask the [employer] portal consultant for further evaluations to rule out any DIC Patient is currently on vancomycin Patient is currently on a weaning process Reason For Visit: SEPSIS, UTI, AMS, ACUTE KIDNEY INJURY, DELIRIUM Physical Exam Vital Signs: Temp Pulse Resp BP Pulse Ox 96.8 F L 106 H 19 100/73 97 10/16/18 10:00 10/16/18 10:00 10/16/18 10:00 10/16/18 10:00 10/16/18 10:00 Intake & Output 10/15/18 10/16/18 10/17/18 06:59 06:59 06:59 Intake Total 4062 3992 50 Output Total 3975 2270 190 Balance 87 1722 -140 Weight 93.2 kg 94 kg Physical Exam: Currently intubated under sedation's General appearance: PRESENT: no acute distress Eye exam: PRESENT: PERRLA Mouth exam: PRESENT: neck supple Respiratory exam: PRESENT: clear to auscultation dawna Cardiovascular exam: PRESENT: +S1, +S2 GI/Abdominal exam: PRESENT: normal bowel sounds, soft Neurological exam: PRESENT: alert, altered, awake Results Laboratory Results: 10/16/18 05:20 10/16/18 05:20 10/15/18 10/15/18 10/15/18 15:27 16:54 17:57 WBC RBC Hgb Hct MCV MCH MCHC RDW Plt Count Seg Neutrophils % Lymphocytes % Monocytes % Eosinophils % Basophils % Absolute Neutrophils Absolute Lymphocytes Absolute Monocytes Absolute Eosinophils Absolute Basophils Carbonic Acid HCO3/H2CO3 Ratio ABG pH ABG pCO2 ABG pO2 ABG HCO3 ABG O2 Saturation ABG Base Excess FiO2 Sodium Potassium 3.6 Chloride Carbon Dioxide Anion Gap BUN Creatinine Est GFR ( Amer) Est GFR (Non-Af Amer) Glucose Calcium Phosphorus Magnesium Total Bilirubin AST ALT Alkaline Phosphatase Total Protein Albumin Stool Occult Blood POSITIVE Blood Type B POSITIVE Antibody Screen NEGATIVE 10/16/18 10/16/18 10/16/18 05:20 05:20 05:20 WBC 11.9 H RBC 3.11 L Hgb 10.2 L D Hct 29.7 L MCV 96 D MCH 32.7 MCHC 34.2 RDW 25.0 H Plt Count 66 L Seg Neutrophils % 78.8 H Lymphocytes % 8.7 L Monocytes % 6.3 Eosinophils % 5.8 Basophils % 0.4 Absolute Neutrophils 9.4 H Absolute Lymphocytes 1.0 Absolute Monocytes 0.7 Absolute Eosinophils 0.7 H Absolute Basophils 0.1 Carbonic Acid 0.82 L HCO3/H2CO3 Ratio 20:1 ABG pH 7.41 ABG pCO2 27.3 L ABG pO2 75.6 L ABG HCO3 16.8 L ABG O2 Saturation 95.5 ABG Base Excess -6.6 FiO2 40% Sodium 139.4 Potassium 3.2 L Chloride 110 H Carbon Dioxide 18 L Anion Gap 11 BUN 14 Creatinine 2.27 H Est GFR ( Amer) 27 L Est GFR (Non-Af Amer) 22 L Glucose 110 Calcium 9.2 Phosphorus 3.5 Magnesium 1.9 Total Bilirubin 2.4 H AST 36 ALT 19 Alkaline Phosphatase 117 Total Protein 5.8 L Albumin 2.2 L Stool Occult Blood Blood Type Antibody Screen 10/13/18 13:58 Sputum Gram Stain - Final 10/13/18 13:58 Sputum Sputum Culture - Final Yeast, Not Kaylee Albicans Greatly Reduced Normal Uzma 09/29/18 09/29/18 09/29/18 10:44 10:44 12:59 Creatine Kinase Cancelled CK-MB (CK-2) Troponin I Cancelled 0.028 NT-Pro-B Natriuret Pep 09/29/18 09/29/18 09/29/18 12:59 15:30 15:30 Creatine Kinase 77 161 H CK-MB (CK-2) 2.69 Troponin I 0.028 NT-Pro-B Natriuret Pep 09/29/18 09/29/18 09/30/18 18:59 18:59 00:59 Creatine Kinase 201 H 197 H CK-MB (CK-2) 3.45 Troponin I 0.023 NT-Pro-B Natriuret Pep 09/30/18 10/01/18 10/03/18 00:59 04:13 04:50 Creatine Kinase CK-MB (CK-2) 2.94 Troponin I 0.021 NT-Pro-B Natriuret Pep 2270 H 3170 H 10/09/18 04:50 Creatine Kinase CK-MB (CK-2) Troponin I NT-Pro-B Natriuret Pep 630 Impressions: Head CT 10/03/18 00:00 IMPRESSION: CHRONIC CHANGES OF ATROPHY AND MICROVASCULAR ISCHEMIA. NO ACUTE PROCESS. EVIDENCE OF ACUTE STROKE: NO. KUB X-Ray 10/05/18 00:00 IMPRESSION: Nasogastric tube tip and side port in the stomach Chest X-Ray 10/16/18 06:00 IMPRESSION: No significant change. Assessment & Plan - Diagnosis (1) Hypokalemia Is this a current diagnosis for this admission?: Yes Plan: Replace the potassium (2) Hypomagnesemia Is this a current diagnosis for this admission?: Yes Plan: Check the magnesium (3) Alcoholic liver disease Is this a current diagnosis for this admission?: Yes (4) Anemia Qualifiers: Anemia type: unspecified type Qualified Code(s): D64.9 - Anemia, unspecified Is this a current diagnosis for this admission?: Yes Plan: Status post 2 units of the blood no sign of any active GI bleed (5) Alcohol abuse Is this a current diagnosis for this admission?: Yes Plan: Continues to patient on Ativan and thiamine (6) UTI (urinary tract infection) Qualifiers: Urinary tract infection type: site unspecified Hematuria presence: with hematuria Qualified Code(s): N39.0 - Urinary tract infection, site not specified; R31.9 - Hematuria, unspecified Is this a current diagnosis for this admission?: Yes (7) Respiratory failure Is this a current diagnosis for this admission?: Yes Plan: Currently all intubated follow with the pulmonary (8) Renal failure Qualifiers: Chronic kidney disease stage: on chronic dialysis Is this a current diagnosis for this admission?: Yes Plan: Currently on renal replacement therapy per nephrology (9) Alcohol withdrawal Qualifiers: Complication of substance-induced condition: with delirium Qualified Code(s): F10.231 - Alcohol dependence with withdrawal delirium Is this a current diagnosis for this admission?: Yes (10) Septic shock Is this a current diagnosis for this admission?: Yes Plan: Continues to vancomycin (11) Thrombocytopenia Is this a current diagnosis for this admission?: Yes Plan: Most likely underlying liver disease due to the alcoholism with the ongoing sepsis In the ongoing reducing the platelet count will consult hematology for further evaluations (12) Gastric ulcer Qualifiers: Gastric ulcer chronicity: chronic Is this a current diagnosis for this admission?: Yes Plan: Will continues the Protonix Consult the GI - Time Time Spent with patient: 25-34 minutes Medications reviewed and adjusted accordingly: Yes Anticipated discharge: Other Within: Other - Plan Summary Plan Summary: See MD orders
[2018-10-16] MEDS: PROPOFOL 1,000 MG/100 ML INFUS..BTL IV PRN (14:06)
[2018-10-16] MEDS: NYSTATIN TOPICAL POWDER 15 GM TP SCH (18:15)
[2018-10-16] MEDS: VANCOMYCIN HCL 500 MG in DEXTROSE 5%-WATER 100 ML IV SCH (18:15)
[2018-10-17] MEDS: INSULIN LISPRO 100 UNIT/ML 3 ML VIAL SUBCUT SCH ×4 (02:58→18:43)
[2018-10-17] MEDS ORDERED: NOREPINEPHRINE BITARTRATE INJ/PF 4 MG/4 ML SDV IV ONE (03:52)
[2018-10-17] MEDS: DEXTROSE 5%-WATER 250 ML with NOREPINEPHRINE BITARTRATE 4 MG IV PRN ×4 (04:02→13:47)
[2018-10-17] MEDS ORDERED: EPOETIN ALFA INJ 20000 UNIT/1 ML VIAL (RENAL) IV PRN (05:00)
[2018-10-17] MEDS: PROPOFOL 1,000 MG/100 ML INFUS..BTL IV PRN ×2 (05:16→14:23)
[2018-10-17] MEDS: METOCLOPRAMIDE HCL INJ/PF 10 MG/2 ML SDV IV SCH ×3 (05:16→21:53)
[2018-10-17] MEDS: PANTOPRAZOLE SODIUM 40 MG VIAL IV SCH ×2 (05:16→18:43)
[2018-10-17 05:26] LABS: PROTHROMBIN TIME 17.9 SEC (11.4-15.4)
[2018-10-17 05:27] LABS: PARTIAL THROMBOPLASTIN TIME 43.9 SEC (23.5-35.8)
[2018-10-17 05:30] LABS: ARTERIAL BLOOD BASE EXCESS -5.2 mmol/L; ARTERIAL BLOOD H2CO3 1.02 mmol/L (1.05-1.35); ARTERIAL BLOOD HCO3 19.3 mmol/L (20-24); ARTERIAL BLOOD O2 SATURATION 96.6 % (94-98); ARTERIAL BLOOD PCO2 33.8 mmHg (35-45); ARTERIAL BLOOD PH 7.37 (7.35-7.45); ARTERIAL BLOOD PO2 88.2 mmHg (80-100); ARTERIAL BLOOD TOTAL CO2 20.3 mmol/L (21-25)
[2018-10-17 05:32] LABS: ARTERIAL BLOOD FIO2 40%
[2018-10-17 05:40] LABS: ANION GAP 11 (5-19); BLOOD UREA NITROGEN 14 mg/dL (7-20); CALCIUM 9.5 mg/dL (8.4-10.2); CARBON DIOXIDE 16 mmol/L (22-30); CHLORIDE 114 mmol/L (98-107); GLUCOSE 108 mg/dL (75-110); POTASSIUM 3.5 mmol/L (3.6-5.0); SODIUM 140.7 mmol/L (137-145)
[2018-10-17 07:39] LABS: HEPATITIS C VIRUS ANTIBODY 0.2 s/co ratio (0.0-0.9)
--- NOTE | 2018-10-17 08:06 | PDOC CONSULTATION ---
Consultation Consult Date: 10/17/18 Consult reason:: Hematology/Oncology consultation was requested for patient with thrombocytopenia. History of Present Illness Admission Date/PCP: 09/29/18 13:24 ABNER WILKINS MD History of Present Illness: MAAME SAENZ is a 53 year old female who was admitted 09/29/2018 with sepsis. She has had a complicated course and has been ventilated since admission. She has been treated for UTI, renal failure, chronic liver disease due to alcohol use. Over the last 2-3 days, she was started on renal dialysis for acute renal failure and was started on 3 pressers for low blood pressure. Her HGB and PLT have been trending downward. This morning, nurses report that she weaned well from the vent support yesterday. She has not been tolerating her tube feeds. She does remain sedated on the vent. Family is not currently present. Past Medical History Past Medical History: All history is per prior medical record. Cardiac Medical History: Reports: DVT Pulmonary Medical History: Reports: Chronic Obstructive Pulmonary Disease (COPD), Intubation, Pneumonia, Respiratory Failure Denies: Tuberculosis Malignancy Medical History: Reports: Lymphoma - History of non-Hodgkin's lymphoma diagnosed 13 years ago. Had limited chem GI Medical History: Reports: Cirrhosis Psychiatric Medical History: Denies: Depression Hematology: Reports: Anemia Past Surgical History Past Surgical History: Reports: Section, Hysterectomy, Orthopedic Surgery - Left hip replacement, right knee, Tonsillectomy, Tubal Ligation Denies: Pacemaker Social History Smoking Status: Current Every Day Smoker Frequency of Alcohol Use: Heavy Hx Recreational Drug Use: No Drugs: Cocaine Hx Prescription Drug Abuse: No - Advance Directive Resuscitation Status: Full Code Family History Family History: Reviewed & Not Pertinent Family History: Unable to obtain, except from chart. Parental Family History Reviewed: No Children Family History Reviewed: No Sibling(s) Family History Reviewed.: No Medication/Allergy Home Medications: No Home Medications 09/29/18 Allergies/Adverse Reactions: No Known Allergies Allergy (Verified 04/05/18 07:38) Review of Systems ROS unobtainable: Due to endotracheal tube Physical Exam Vital Signs: Temp Pulse Resp BP Pulse Ox 99.0 F 110 H 25 H 100/68 100 10/17/18 06:11 10/16/18 22:00 10/17/18 06:11 10/17/18 06:11 10/17/18 06:11 Intake & Output 10/16/18 10/17/18 10/18/18 06:59 06:59 06:59 Intake Total 3992 1258 Output Total 2270 1350 Balance 1722 -92 Weight 94 kg 95.5 kg General appearance: PRESENT: other - 53 year old Afirc[place] La[place] female who is sedated on ventilator. Mouth exam: PRESENT: other - ET tube in place, but there is foam coming from her nose. NG tube is also in place. Neck exam: ABSENT: lymphadenopathy Respiratory exam: PRESENT: clear to auscultation dawna, unlabored Cardiovascular exam: PRESENT: RRR. ABSENT: systolic murmur GI/Abdominal exam: PRESENT: soft. ABSENT: organolmegaly Extremities exam: PRESENT: other - TAMAR and SCDs in place.. ABSENT: pedal edema Neurological exam: PRESENT: other - Sedated on ventilator. Skin exam: PRESENT: normal color. ABSENT: rash Results Laboratory Results: 10/16/18 05:20 10/17/18 04:59 10/16/18 10/17/18 10/17/18 18:30 04:59 05:10 Carbonic Acid 1.02 L HCO3/H2CO3 Ratio 18:1 ABG pH 7.37 ABG pCO2 33.8 L ABG pO2 88.2 ABG HCO3 19.3 L ABG O2 Saturation 96.6 ABG Base Excess -5.2 FiO2 40% Sodium 140.7 Potassium 3.7 3.5 L Chloride 114 H Carbon Dioxide 16 L Anion Gap 11 BUN 14 Creatinine 2.89 H Est GFR ( Amer) 20 L Est GFR (Non-Af Amer) 17 L Glucose 108 Calcium 9.5 Magnesium 2.0 09/29/18 09/29/18 09/29/18 10:44 10:44 12:59 Creatine Kinase Cancelled CK-MB (CK-2) Troponin I Cancelled 0.028 NT-Pro-B Natriuret Pep 09/29/18 09/29/18 09/29/18 12:59 15:30 15:30 Creatine Kinase 77 161 H CK-MB (CK-2) 2.69 Troponin I 0.028 NT-Pro-B Natriuret Pep 09/29/18 09/29/18 09/30/18 18:59 18:59 00:59 Creatine Kinase 201 H 197 H CK-MB (CK-2) 3.45 Troponin I 0.023 NT-Pro-B Natriuret Pep 09/30/18 10/01/18 10/03/18 00:59 04:13 04:50 Creatine Kinase CK-MB (CK-2) 2.94 Troponin I 0.021 NT-Pro-B Natriuret Pep 2270 H 3170 H 10/09/18 04:50 Creatine Kinase CK-MB (CK-2) Troponin I NT-Pro-B Natriuret Pep 630 Impressions: Head CT 10/03/18 00:00 IMPRESSION: CHRONIC CHANGES OF ATROPHY AND MICROVASCULAR ISCHEMIA. NO ACUTE PROCESS. EVIDENCE OF ACUTE STROKE: NO. KUB X-Ray 10/05/18 00:00 IMPRESSION: Nasogastric tube tip and side port in the stomach Status: Image reviewed by me Assessment & Plan - Diagnosis (1) Septic shock Is this a current diagnosis for this admission?: Yes Plan: She is on vancomycin currently. The only thing recently growing from cultures is yeast/fungal not ben. Consider ID consultation, or stopping vancomycin and starting fungal coverage. (2) DIC (disseminated intravascular coagulation) Is this a current diagnosis for this admission?: Yes Plan: Her Fibrinogen is low. I will order Cryoprecipitate and watch Fibrinogen levels. (3) Metabolic encephalopathy Is this a current diagnosis for this admission?: Yes Plan: Most recent ammonia level remained elevated. I will repeat this level now. (4) Thrombocytopenia Is this a current diagnosis for this admission?: Yes Plan: Her anemia and thrombocytopenia are most likely related to her sepsis. I would continue transfusion support and continue blood thinners unless her PLT are <50. - Plan Summary Plan Summary: I will continue to follow her. Overall, prognosis is poor, unless underlying cause for her sepsis can be established. May consider CT chest and abdomen as well as beta galactan testing for fungal elements. Patient was discussed with Dr. Almaraz.
[2018-10-17] MEDS ORDERED: NORMAL SALINE 250 ML IV PRN (08:08)
[2018-10-17] MEDS: THIAMINE HCL 100 MG TABLET NG SCH (09:51)
[2018-10-17] MEDS: SODIUM BICARBONATE 650 MG TABLET PO SCH ×2 (09:51→21:53)
[2018-10-17] MEDS: NYSTATIN TOPICAL POWDER 15 GM TP SCH ×2 (09:51→18:43)
--- NOTE | 2018-10-17 10:44 | RADIOLOGY REPORT (SQ) ---
EXAM DESCRIPTION: CHEST SINGLE VIEW COMPLETED DATE/TIME: 10/17/2018 10:13 am REASON FOR STUDY: ETT repostitioning COMPARISON: None. EXAM PARAMETERS: NUMBER OF VIEWS: One view. TECHNIQUE: Single frontal radiographic view of the chest acquired. RADIATION DOSE: NA LIMITATIONS: None. FINDINGS: LUNGS AND PLEURA: The appears to be a large bulla on the right with a small amount of aera gold lung in the apex. The left lung is free of infiltrate. MEDIASTINUM AND HILAR STRUCTURES: No masses. Contour normal. HEART AND VASCULAR STRUCTURES: Heart size is borderline. There is no pasha pulmonary edema. BONES: No acute findings. HARDWARE: An endotracheal tube is present with the tip 4 cm above the jana. And NG tube extends to the stomach. A right internal jugular catheter has its tip in the superior vena cava. OTHER: No other significant finding. IMPRESSION: No significant interval change in the chest. Life lines as described. TECHNICAL DOCUMENTATION: JOB ID: [id number] [employer] - [employer]- All Rights Reserved Reading location - IP/workstation name: [email or web address]
--- NOTE | 2018-10-17 10:59 | RADIOLOGY REPORT (SQ) ---
EXAM DESCRIPTION: CHEST SINGLE VIEW COMPLETED DATE/TIME: 10/17/2018 6:28 am REASON FOR STUDY: resp failure COMPARISON: 10/16/2018 NUMBER OF VIEWS: One view. TECHNIQUE: Single frontal radiographic image of the chest acquired. LIMITATIONS: None. FINDINGS: LUNGS AND PLEURA: Improved aeration left lung. No pneumothorax. MEDIASTINUM AND HEART: Stable heart size and mediastinal structures. SUPPORT DEVICES: Unchanged position of right central line and nasogastric tube. Interval removal of endotracheal tube. BONY STRUCTURES: No acute findings. HARDWARE: None. OTHER: No other significant finding. IMPRESSION: Stable chest status postextubation. Reading location - IP/workstation name: [email or web address]
[2018-10-17] MEDS: NORMAL SALINE 1000 ML 1,000 ML with POTASSIUM CHLORIDE 20 MEQ, MAGNESIUM SULFATE 8 MEQ,... IV SCH ×4 (12:26)
--- NOTE | 2018-10-17 13:08 | PDOC PROGRESS REPORT ---
Subjective Progress Note for:: 10/17/18 Reason For Visit: Patient seen today in the ICU. Chart review was done and discussions were done with the treating ICU nurse. She was admitted with a history of acute encephalopathy in the background of UTI and septic shock. Patient was on triple pressors in an oliguric state with severe metabolic acidosis from lactic acidosis. She was initiated on hemodialysis last week. However over the weekend she is making good renal recovery with good amount of urine output and dropping creatinine. Metabolic acidosis is reasonable compared to last week. Patient remains intubated and sedated. Discussions were done with the treating nurse on in the ICU.She is now weaned down to just Levophed only and the other 2 pressors have been discontinued which is a good prognostic sign as well. Physical Exam Vital Signs: Temp Pulse Resp BP Pulse Ox 97.7 F 103 H 22 H 107/78 98 10/17/18 12:00 10/17/18 12:00 10/17/18 12:00 10/17/18 12:00 10/17/18 12:00 Intake & Output 10/16/18 10/17/18 10/18/18 06:59 06:59 06:59 Intake Total 3992 2280 138 Output Total 2270 1350 510 Balance 1722 930 -372 Weight 94 kg 95.5 kg Exam: Remains intubated and sedated. Respiratory exam: PRESENT: clear to auscultation dawna, crackles - Scattered in both lung palomares., decreased breath sounds, rhonchi - Scattered in both lung palomares. Cardiovascular exam: PRESENT: +S1, +S2, systolic murmur GI/Abdominal exam: PRESENT: normal bowel sounds, soft. ABSENT: organomegaly, tenderness Extremities exam: PRESENT: pedal edema Neurological exam: PRESENT: altered - Remains intubated and sedated. Skin exam: ABSENT: cyanosis, erythema, jaundice, mottled, rash - No livedo. Results Laboratory Results: 10/16/18 05:20 10/17/18 04:59 10/15/18 10/16/18 10/17/18 15:27 18:30 04:59 Carbonic Acid HCO3/H2CO3 Ratio ABG pH ABG pCO2 ABG pO2 ABG HCO3 ABG O2 Saturation ABG Base Excess FiO2 Sodium 140.7 Potassium 3.7 3.5 L Chloride 114 H Carbon Dioxide 16 L Anion Gap 11 BUN 14 Creatinine 2.89 H Est GFR ( Amer) 20 L Est GFR (Non-Af Amer) 17 L Glucose 108 Calcium 9.5 Magnesium 2.0 Blood Type B POSITIVE Antibody Screen NEGATIVE 10/17/18 05:10 Carbonic Acid 1.02 L HCO3/H2CO3 Ratio 18:1 ABG pH 7.37 ABG pCO2 33.8 L ABG pO2 88.2 ABG HCO3 19.3 L ABG O2 Saturation 96.6 ABG Base Excess -5.2 FiO2 40% Sodium Potassium Chloride Carbon Dioxide Anion Gap BUN Creatinine Est GFR ( Amer) Est GFR (Non-Af Amer) Glucose Calcium Magnesium Blood Type Antibody Screen 09/29/18 09/29/18 09/29/18 10:44 10:44 12:59 Creatine Kinase Cancelled CK-MB (CK-2) Troponin I Cancelled 0.028 NT-Pro-B Natriuret Pep 09/29/18 09/29/18 09/29/18 12:59 15:30 15:30 Creatine Kinase 77 161 H CK-MB (CK-2) 2.69 Troponin I 0.028 NT-Pro-B Natriuret Pep 09/29/18 09/29/18 09/30/18 18:59 18:59 00:59 Creatine Kinase 201 H 197 H CK-MB (CK-2) 3.45 Troponin I 0.023 NT-Pro-B Natriuret Pep 09/30/18 10/01/18 10/03/18 00:59 04:13 04:50 Creatine Kinase CK-MB (CK-2) 2.94 Troponin I 0.021 NT-Pro-B Natriuret Pep 2270 H 3170 H 10/09/18 04:50 Creatine Kinase CK-MB (CK-2) Troponin I NT-Pro-B Natriuret Pep 630 Impressions: Head CT 10/03/18 00:00 IMPRESSION: CHRONIC CHANGES OF ATROPHY AND MICROVASCULAR ISCHEMIA. NO ACUTE PROCESS. EVIDENCE OF ACUTE STROKE: NO. KUB X-Ray 10/05/18 00:00 IMPRESSION: Nasogastric tube tip and side port in the stomach Chest X-Ray 10/17/18 06:00 IMPRESSION: Stable chest status postextubation. Assessment & Plan - Diagnosis (1) Acute encephalopathy Plan: In the setting of septic shock from UTI and possible alcohol withdrawal. Currently intubated and sedated. (2) Acute kidney injury Is this a current diagnosis for this admission?: Yes Plan: Currently nonoliguric. She was initiated on hemodialysis last week because of drop in urine output as well as severe metabolic acidosis in the face of severe lactic acidosis. She seems to be making good renal recovery and will therefore withhold dialysis today and take it on a daily basis. (3) Alcohol withdrawal Qualifiers: Complication of substance-induced condition: with delirium Qualified Code(s): F10.231 - Alcohol dependence with withdrawal delirium Is this a current diagnosis for this admission?: Yes Plan: On appropriate medications. (4) DIC (disseminated intravascular coagulation) Is this a current diagnosis for this admission?: Yes Plan: Heme oncologist has been consulted. (5) Lactic acidosis Is this a current diagnosis for this admission?: Yes Plan: Resulting in severe metabolic acidosis. Seems to have responded partially to initiation of hemodialysis. Continue on bicarbonate replacements and monitor. Withhold dialysis for the moment and see the response especially as she is making good urine output. (6) Respiratory failure Is this a current diagnosis for this admission?: Yes Plan: Currently intubated and sedated. (7) Septic shock Is this a current diagnosis for this admission?: Yes Plan: On pressors and relatively stable. Now producing more urine. (8) UTI (urinary tract infection) Qualifiers: Urinary tract infection type: site unspecified Hematuria presence: with hematuria Qualified Code(s): N39.0 - Urinary tract infection, site not specified; R31.9 - Hematuria, unspecified Is this a current diagnosis for this admission?: Yes Plan: Was given antibiotics in the early phase. Currently now growing fungal elements. Would recommend antifungal treatment. (9) Anemia Qualifiers: Anemia type: unspecified type Qualified Code(s): D64.9 - Anemia, unspecified Is this a current diagnosis for this admission?: Yes Plan: In the face of septic shock and DIC. Was transfused another day and currently stable. Also history of PUD in the past. (10) Escherichia coli urinary tract infection Is this a current diagnosis for this admission?: Yes Plan: As mentioned earlier. Patient was on IV antibiotics. Now growing fungal elements. Would recommend initiation of antifungal treatment. (11) Metabolic acidosis Is this a current diagnosis for this admission?: Yes Plan: Improved. We will see how she responds to conservative management. Withhold dialysis for today discussed with treating ICU nurse.
[2018-10-17] MEDS: ALBUMIN HUMAN 12.5 GM/50 ML RTUINJ IV SCH ×2 (13:46→21:52)
[2018-10-17] MEDS: NORMAL SALINE 250 ML with FUROSEMIDE 250 MG IV PRN ×2 (13:52)
--- NOTE | 2018-10-17 21:10 | PDOC PROGRESS REPORT ---
Subjective Progress Note for:: 10/17/18 Subjective:: I had a long discussion with patient's mother and also the spouse about her prognosis and overall care in the hospital, she presently septic complicated with DIC immunocompromised from chronic alcoholism all this was explained to the family, prognosis is guarded to poor Reason For Visit: SEPSIS, UTI, AMS, ACUTE KIDNEY INJURY, DELIRIUM Physical Exam Vital Signs: Temp Pulse Resp BP Pulse Ox 98.2 F 102 H 22 H 89/62 L 99 10/17/18 20:00 10/17/18 18:00 10/17/18 18:43 10/17/18 18:43 10/17/18 20:00 Intake & Output 10/16/18 10/17/18 10/18/18 06:59 06:59 06:59 Intake Total 3992 2530 626 Output Total 2270 1350 935 Balance 1722 1180 -309 Weight 94 kg 95.5 kg Eye exam: PRESENT: PERRLA Respiratory exam: PRESENT: rhonchi Cardiovascular exam: PRESENT: +S1, +S2 GI/Abdominal exam: PRESENT: soft Neurological exam: PRESENT: alert Results Laboratory Results: 10/16/18 05:20 10/17/18 18:53 10/15/18 10/17/18 10/17/18 15:27 04:59 05:10 Carbonic Acid 1.02 L HCO3/H2CO3 Ratio 18:1 ABG pH 7.37 ABG pCO2 33.8 L ABG pO2 88.2 ABG HCO3 19.3 L ABG O2 Saturation 96.6 ABG Base Excess -5.2 FiO2 40% Sodium 140.7 Potassium 3.5 L Chloride 114 H Carbon Dioxide 16 L Anion Gap 11 BUN 14 Creatinine 2.89 H Est GFR ( Amer) 20 L Est GFR (Non-Af Amer) 17 L Glucose 108 Calcium 9.5 Magnesium 2.0 Blood Type B POSITIVE Antibody Screen NEGATIVE 10/17/18 18:53 Carbonic Acid HCO3/H2CO3 Ratio ABG pH ABG pCO2 ABG pO2 ABG HCO3 ABG O2 Saturation ABG Base Excess FiO2 Sodium Potassium 3.3 L Chloride Carbon Dioxide Anion Gap BUN Creatinine Est GFR ( Amer) Est GFR (Non-Af Amer) Glucose Calcium Magnesium Blood Type Antibody Screen 09/29/18 09/29/18 09/29/18 10:44 10:44 12:59 Creatine Kinase Cancelled CK-MB (CK-2) Troponin I Cancelled 0.028 NT-Pro-B Natriuret Pep 09/29/18 09/29/18 09/29/18 12:59 15:30 15:30 Creatine Kinase 77 161 H CK-MB (CK-2) 2.69 Troponin I 0.028 NT-Pro-B Natriuret Pep 09/29/18 09/29/18 09/30/18 18:59 18:59 00:59 Creatine Kinase 201 H 197 H CK-MB (CK-2) 3.45 Troponin I 0.023 NT-Pro-B Natriuret Pep 09/30/18 10/01/18 10/03/18 00:59 04:13 04:50 Creatine Kinase CK-MB (CK-2) 2.94 Troponin I 0.021 NT-Pro-B Natriuret Pep 2270 H 3170 H 10/09/18 04:50 Creatine Kinase CK-MB (CK-2) Troponin I NT-Pro-B Natriuret Pep 630 Impressions: Head CT 10/03/18 00:00 IMPRESSION: CHRONIC CHANGES OF ATROPHY AND MICROVASCULAR ISCHEMIA. NO ACUTE PROCESS. EVIDENCE OF ACUTE STROKE: NO. KUB X-Ray 10/05/18 00:00 IMPRESSION: Nasogastric tube tip and side port in the stomach Chest X-Ray 10/17/18 06:00 IMPRESSION: Stable chest status postextubation. Assessment & Plan - Diagnosis (1) Septic shock Is this a current diagnosis for this admission?: Yes Plan: Patient in septic shock she continues to require intravenous vasopressor presently just on 1 vasopressor, also developed DIC with, thrombocytopenia hypofibrinogenemia, she was seen this morning by the systems test analyst and she was given cryoprecipitate. The culture from the bronchial washing grew, Kaylee albicans no bacterial pathogen was isolated this could represent colonization of the upper respiratory system. The chest x-ray demonstrated right infiltrate, s he also had E. coli and Proteus UTI. She had DIC suggesting severe sepsis, she will empirically be started on intravenous ertapenem, she was treated initially for UTI when she presented with septic shock from UTI, she will be treated empirically with fluconazole (2) UTI (urinary tract infection) Qualifiers: Urinary tract infection type: site unspecified Hematuria presence: with hematuria Qualified Code(s): N39.0 - Urinary tract infection, site not specified; R31.9 - Hematuria, unspecified Is this a current diagnosis for this admission?: Yes (3) Hypokalemia Is this a current diagnosis for this admission?: Yes (4) Hypomagnesemia Is this a current diagnosis for this admission?: Yes (5) Alcohol abuse Is this a current diagnosis for this admission?: Yes (6) Metabolic encephalopathy Is this a current diagnosis for this admission?: Yes (7) Hyperammonemia Is this a current diagnosis for this admission?: Yes (8) Alcohol withdrawal Qualifiers: Complication of substance-induced condition: with delirium Qualified Code(s): F10.231 - Alcohol dependence with withdrawal delirium Is this a current diagnosis for this admission?: Yes (9) Respiratory failure with hypoxia and hypercapnia Qualifiers: Chronicity: acute Qualified Code(s): J96.01 - Acute respiratory failure with hypoxia; J96.02 - Acute respiratory failure with hypercapnia Is this a current diagnosis for this admission?: Yes (10) Nosocomial pneumonia Is this a current diagnosis for this admission?: Yes (11) Hypotension Qualifiers: Hypotension type: unspecified hypotension type Qualified Code(s): I95.9 - Hypotension, unspecified Is this a current diagnosis for this admission?: Yes (12) Gastroparesis Is this a current diagnosis for this admission?: Yes (13) Acute kidney injury Is this a current diagnosis for this admission?: Yes Plan: She did not require dialysis today (14) DIC (disseminated intravascular coagulation) Is this a current diagnosis for this admission?: Yes Plan: Per Hematology
--- NOTE | 2018-10-17 21:47 | RADIOLOGY REPORT (SQ) ---
EXAM DESCRIPTION: XR CHEST 1 VIEW COMPLETED DATE/TME: 10/17/2018 00:00 CLINICAL HISTORY: 53 years, Female, pneumonia Findings: The heart is moderately enlarged. Endotracheal tube and enteric tube are in place with tip below the diaphragm in the stomach. Right IJ CVC. Heart is moderately enlarged. No pneumothorax. Right upper lobe scarring changes. No pleural effusions. IMPRESSION: Lines and tubes of life-support in place. Stable findings.
[2018-10-17] MEDS: ERTAPENEM SODIUM 1 GM in NORMAL SALINE 50 ML IV SCH (21:52)
[2018-10-17] MEDS: FLUCONAZOLE 200 MG/NS RTU 200 MG/100 ML RTUPB IV SCH (21:53)
[2018-10-18] MEDS: INSULIN LISPRO 100 UNIT/ML 3 ML VIAL SUBCUT SCH ×4 (01:05→17:16)
[2018-10-18] MEDS: DEXTROSE 5%-WATER 250 ML with NOREPINEPHRINE BITARTRATE 4 MG IV PRN ×4 (02:35→15:21)
[2018-10-18] MEDS: NORMAL SALINE 250 ML with FUROSEMIDE 250 MG IV PRN ×4 (02:58→15:21)
[2018-10-18 05:24] LABS: ABSOLUTE BASOPHILS # (AUTO) 0.1 10^3/uL (0.0-0.2); ABSOLUTE EOSINOPHILS # (AUTO) 0.8 10^3/uL (0.0-0.6); ABSOLUTE LYMPHOCYTES (AUTO) 1.5 10^3/uL (0.5-4.7); ABSOLUTE MONOCYTES (AUTO) 1.5 10^3/uL (0.1-1.4); ABSOLUTE NEUT (AUTO) 11.7 10^3/uL (1.7-8.2); BASOPHILS % (AUTO) 0.5 % (0-2); EOSINOPHILS % (AUTO) 4.8 % (0-6); HEMATOCRIT 28.6 % (36.0-47.0); HEMOGLOBIN 9.5 g/dL (12.0-15.5); LYMPHOCYTES % (AUTO) 9.7 % (13-45); MEAN CORPUSCULAR HEMOGLOBIN 32.4 pg (27.0-33.4); MEAN CORPUSCULAR HGB CONC 33.1 g/dL (32.0-36.0); MEAN CORPUSCULAR VOLUME 98 fl (80-97); MONOCYTES % (AUTO) 9.5 % (3-13); RED BLOOD COUNT 2.93 10^6/uL (3.72-5.28); RED CELL DISTRIBUTION WIDTH 25.7 % (11.5-14.0); SEGMENTED NEUTROPHILS % (AUTO) 75.5 % (42-78); TOTAL CELLS COUNTED % (AUTO) 100 %; WHITE BLOOD COUNT 15.5 10^3/uL (4.0-10.5)
[2018-10-18 05:26] LABS: INTERNATIONAL RATION (INR) 1.32
[2018-10-18 05:27] LABS: FIBRINOGEN 244 mg/dL (209-497); PARTIAL THROMBOPLASTIN TIME 43.4 SEC (23.5-35.8)
[2018-10-18 05:31] LABS: PLATELET COUNT 71 10^3/uL (150-450)
[2018-10-18 05:42] LABS: ANION GAP 11 (5-19); BLOOD UREA NITROGEN 14 mg/dL (7-20); CALCIUM 10.1 mg/dL (8.4-10.2); CARBON DIOXIDE 18 mmol/L (22-30); CHLORIDE 113 mmol/L (98-107); GLUCOSE 106 mg/dL (75-110); POTASSIUM 3.2 mmol/L (3.6-5.0); SODIUM 142.2 mmol/L (137-145)
[2018-10-18 05:51] LABS: ANISOCYTOSIS 3+; BURR CELLS SLIGHT; HELMET CELLS SLIGHT; OVALOCYTES 2+; PLATELET COMMENT DECREASED; POIKILOCYTOSIS 3+; SCHISTOCYTES 1+; TARGET CELLS 2+; TEAR DROP CELLS 1+; TOXIC GRANULATION SLIGHT; TOXIC VACUOLATION PRESENT
[2018-10-18 06:18] LABS: ARTERIAL BLOOD BASE EXCESS -7.5 mmol/L; ARTERIAL BLOOD H2CO3 0.81 mmol/L (1.05-1.35); ARTERIAL BLOOD HCO3 16.1 mmol/L (20-24); ARTERIAL BLOOD O2 SATURATION 94.6 % (94-98); ARTERIAL BLOOD PCO2 26.8 mmHg (35-45); ARTERIAL BLOOD PO2 70.9 mmHg (80-100); ARTERIAL BLOOD TOTAL CO2 16.9 mmol/L (21-25)
[2018-10-18 06:19] LABS: ARTERIAL BLOOD FIO2 30%
[2018-10-18] MEDS: ALBUMIN HUMAN 12.5 GM/50 ML RTUINJ IV SCH ×3 (06:22→21:15)
[2018-10-18] MEDS: PANTOPRAZOLE SODIUM 40 MG VIAL IV SCH ×2 (06:23→17:15)
[2018-10-18] MEDS: METOCLOPRAMIDE HCL INJ/PF 10 MG/2 ML SDV IV SCH ×3 (06:23→21:14)
--- NOTE | 2018-10-18 08:23 | RADIOLOGY REPORT (SQ) ---
EXAM DESCRIPTION: CHEST SINGLE VIEW COMPLETED DATE/TIME: 10/18/2018 7:00 am REASON FOR STUDY: PNA COMPARISON: 10/17/2018 EXAM PARAMETERS: NUMBER OF VIEWS: One view. TECHNIQUE: Single frontal radiographic view of the chest acquired. RADIATION DOSE: NA LIMITATIONS: None. FINDINGS: LUNGS AND PLEURA: Stable right upper lobe chronic volume loss and consolidation with pleur al thickening. No significant change in the patchy left basilar airspace disease. Small bilateral e ffusion. No appreciable pneumothorax per MEDIASTINUM AND HILAR STRUCTURES: Stable. HEART AND VASCULAR STRUCTURES: Enlarged, stable. BONES: No acute findings. HARDWARE: Endotracheal tube tip overlies midthoracic trachea. Right internal jugular central venous catheter tip overlies right atrium. Enteric tip below diaphragm but excluded by collimation. OTHER: No other significant finding. IMPRESSION: Stable chest with patchy left basilar airspace disease and chronic right apical changes. Stable support lines and tubes . TECHNICAL DOCUMENTATION: JOB ID: [id number] [employer]- All Rights Reserved Reading location - IP/workstation name: [email or web address]
--- NOTE | 2018-10-18 09:33 | PDOC PROGRESS REPORT ---
Subjective Progress Note for:: 10/18/18 Subjective:: Patient remains sedated on vent, but she will open her eyes for me today and does react to touch. Reason For Visit: SEPSIS, UTI, AMS, ACUTE KIDNEY INJURY, DELIRIUM Physical Exam Vital Signs: Temp Pulse Resp BP Pulse Ox 97.5 F 112 H 22 H 107/79 100 10/18/18 09:00 10/18/18 08:35 10/18/18 09:00 10/18/18 08:59 10/18/18 09:00 Intake & Output 10/17/18 10/18/18 10/19/18 06:59 06:59 06:59 Intake Total 2530 2406 50 Output Total 1350 1535 225 Balance 1180 871 -175 Weight 95.5 kg 95.2 kg General appearance: PRESENT: well-developed, well-nourished Head exam: PRESENT: normocephalic Respiratory exam: PRESENT: clear to auscultation dawna Cardiovascular exam: PRESENT: RRR Extremities exam: ABSENT: pedal edema Skin exam: PRESENT: normal color Results Laboratory Results: 10/18/18 04:50 10/18/18 04:50 10/15/18 10/17/18 10/18/18 15:27 18:53 04:50 WBC RBC Hgb Hct MCV MCH MCHC RDW Plt Count Seg Neutrophils % Lymphocytes % Monocytes % Eosinophils % Basophils % Absolute Neutrophils Absolute Lymphocytes Absolute Monocytes Absolute Eosinophils Absolute Basophils Carbonic Acid Cancelled HCO3/H2CO3 Ratio Cancelled ABG pH Cancelled ABG pCO2 Cancelled ABG pO2 Cancelled ABG HCO3 Cancelled ABG O2 Saturation Cancelled ABG Base Excess Cancelled FiO2 Cancelled Sodium Potassium 3.3 L Chloride Carbon Dioxide Anion Gap BUN Creatinine Est GFR ( Amer) Est GFR (Non-Af Amer) Glucose Lactic Acid Calcium Magnesium Blood Type B POSITIVE Antibody Screen NEGATIVE 10/18/18 10/18/18 10/18/18 04:50 04:50 04:50 WBC 15.5 H RBC 2.93 L Hgb 9.5 L Hct 28.6 L MCV 98 H MCH 32.4 MCHC 33.1 RDW 25.7 H Plt Count 71 L Seg Neutrophils % 75.5 Lymphocytes % 9.7 L Monocytes % 9.5 Eosinophils % 4.8 Basophils % 0.5 Absolute Neutrophils 11.7 H Absolute Lymphocytes 1.5 Absolute Monocytes 1.5 H Absolute Eosinophils 0.8 H Absolute Basophils 0.1 Carbonic Acid HCO3/H2CO3 Ratio ABG pH ABG pCO2 ABG pO2 ABG HCO3 ABG O2 Saturation ABG Base Excess FiO2 Sodium 142.2 Potassium 3.2 L Chloride 113 H Carbon Dioxide 18 L Anion Gap 11 BUN 14 Creatinine 3.23 H Est GFR ( Amer) 18 L Est GFR (Non-Af Amer) 15 L Glucose 106 Lactic Acid 0.9 Calcium 10.1 Magnesium 2.1 Blood Type Antibody Screen 10/18/18 05:44 WBC RBC Hgb Hct MCV MCH MCHC RDW Plt Count Seg Neutrophils % Lymphocytes % Monocytes % Eosinophils % Basophils % Absolute Neutrophils Absolute Lymphocytes Absolute Monocytes Absolute Eosinophils Absolute Basophils Carbonic Acid 0.81 L HCO3/H2CO3 Ratio 19:1 ABG pH 7.40 ABG pCO2 26.8 L ABG pO2 70.9 L ABG HCO3 16.1 L ABG O2 Saturation 94.6 ABG Base Excess -7.5 FiO2 30% Sodium Potassium Chloride Carbon Dioxide Anion Gap BUN Creatinine Est GFR ( Amer) Est GFR (Non-Af Amer) Glucose Lactic Acid Calcium Magnesium Blood Type Antibody Screen 09/29/18 09/29/18 09/29/18 10:44 10:44 12:59 Creatine Kinase Cancelled CK-MB (CK-2) Troponin I Cancelled 0.028 NT-Pro-B Natriuret Pep 09/29/18 09/29/18 09/29/18 12:59 15:30 15:30 Creatine Kinase 77 161 H CK-MB (CK-2) 2.69 Troponin I 0.028 NT-Pro-B Natriuret Pep 09/29/18 09/29/18 09/30/18 18:59 18:59 00:59 Creatine Kinase 201 H 197 H CK-MB (CK-2) 3.45 Troponin I 0.023 NT-Pro-B Natriuret Pep 09/30/18 10/01/18 10/03/18 00:59 04:13 04:50 Creatine Kinase CK-MB (CK-2) 2.94 Troponin I 0.021 NT-Pro-B Natriuret Pep 2270 H 3170 H 10/09/18 04:50 Creatine Kinase CK-MB (CK-2) Troponin I NT-Pro-B Natriuret Pep 630 Impressions: Head CT 10/03/18 00:00 IMPRESSION: CHRONIC CHANGES OF ATROPHY AND MICROVASCULAR ISCHEMIA. NO ACUTE PROCESS. EVIDENCE OF ACUTE STROKE: NO. KUB X-Ray 10/05/18 00:00 IMPRESSION: Nasogastric tube tip and side port in the stomach Assessment & Plan - Diagnosis (1) Septic shock Is this a current diagnosis for this admission?: Yes Plan: She is now on Diflucan and Vancomycin has been stopped. Her blood pressures have improved and she is now only on 1 presser. (2) DIC (disseminated intravascular coagulation) Is this a current diagnosis for this admission?: Yes Plan: She received Cryoprecipitate yesterday. Her Fibrinogen today has improved. No active bleeding. I see no indication for further blood transfusions today, but will watch closely. (3) Metabolic encephalopathy Is this a current diagnosis for this admission?: Yes (4) Thrombocytopenia Is this a current diagnosis for this admission?: Yes Plan: Her blood counts appear to have stabilized. Will continue to monitor and transfuse as needed. No transfusions today.
[2018-10-18] MEDS: NYSTATIN TOPICAL POWDER 15 GM TP SCH ×2 (10:02→17:15)
[2018-10-18] MEDS: POTASSIUM CHLORIDE 20 MEQ/50 ML RTU IV SCH ×2 (10:02→11:42)
[2018-10-18] MEDS: SODIUM BICARBONATE 650 MG TABLET PO SCH ×2 (10:03→21:14)
[2018-10-18] MEDS: NORMAL SALINE 1000 ML 1,000 ML with POTASSIUM CHLORIDE 20 MEQ, MAGNESIUM SULFATE 8 MEQ,... IV SCH ×4 (10:03)
[2018-10-18] MEDS: THIAMINE HCL 100 MG TABLET NG SCH (10:03)
--- NOTE | 2018-10-18 15:04 | PDOC PROGRESS REPORT ---
Subjective Progress Note for:: 10/18/18 Reason For Visit: Patient seen in the ICU today. She remains intubated and sedated. Discussions were done with the treating ICU nurse Mirella. Labs and medications were reviewed. Fortunately she still continues to make decent amounts of urine. She is currently on Levophed but that her blood pressure drops into the 90s systolics and therefore it has to be up titrated. Physical Exam Vital Signs: Temp Pulse Resp BP Pulse Ox 98.1 F 102 H 22 H 101/74 98 10/18/18 14:00 10/18/18 12:00 10/18/18 14:00 10/18/18 13:59 10/18/18 14:00 Intake & Output 10/17/18 10/18/18 10/19/18 06:59 06:59 06:59 Intake Total 2530 2406 574 Output Total 1350 1535 525 Balance 1180 871 49 Weight 95.5 kg 95.2 kg Exam: Remains intubated and sedated. She has still got anasarca. Respiratory exam: PRESENT: chest wall tenderness, clear to auscultation dawna, crackles, rhonchi Cardiovascular exam: PRESENT: +S1, +S2, systolic murmur GI/Abdominal exam: PRESENT: normal bowel sounds, soft. ABSENT: organomegaly, tenderness Extremities exam: PRESENT: +1 edema Neurological exam: PRESENT: altered Skin exam: ABSENT: cyanosis, erythema, mottled, rash Results Laboratory Results: 10/18/18 04:50 10/18/18 04:50 10/17/18 10/18/18 10/18/18 18:53 04:50 04:50 WBC RBC Hgb Hct MCV MCH MCHC RDW Plt Count Seg Neutrophils % Lymphocytes % Monocytes % Eosinophils % Basophils % Absolute Neutrophils Absolute Lymphocytes Absolute Monocytes Absolute Eosinophils Absolute Basophils Carbonic Acid Cancelled HCO3/H2CO3 Ratio Cancelled ABG pH Cancelled ABG pCO2 Cancelled ABG pO2 Cancelled ABG HCO3 Cancelled ABG O2 Saturation Cancelled ABG Base Excess Cancelled FiO2 Cancelled Sodium 142.2 Potassium 3.3 L 3.2 L Chloride 113 H Carbon Dioxide 18 L Anion Gap 11 BUN 14 Creatinine 3.23 H Est GFR ( Amer) 18 L Est GFR (Non-Af Amer) 15 L Glucose 106 Lactic Acid Calcium 10.1 Magnesium 2.1 10/18/18 10/18/18 10/18/18 04:50 04:50 05:44 WBC 15.5 H RBC 2.93 L Hgb 9.5 L Hct 28.6 L MCV 98 H MCH 32.4 MCHC 33.1 RDW 25.7 H Plt Count 71 L Seg Neutrophils % 75.5 Lymphocytes % 9.7 L Monocytes % 9.5 Eosinophils % 4.8 Basophils % 0.5 Absolute Neutrophils 11.7 H Absolute Lymphocytes 1.5 Absolute Monocytes 1.5 H Absolute Eosinophils 0.8 H Absolute Basophils 0.1 Carbonic Acid 0.81 L HCO3/H2CO3 Ratio 19:1 ABG pH 7.40 ABG pCO2 26.8 L ABG pO2 70.9 L ABG HCO3 16.1 L ABG O2 Saturation 94.6 ABG Base Excess -7.5 FiO2 30% Sodium Potassium Chloride Carbon Dioxide Anion Gap BUN Creatinine Est GFR ( Amer) Est GFR (Non-Af Amer) Glucose Lactic Acid 0.9 Calcium Magnesium 09/29/18 09/29/18 09/29/18 10:44 10:44 12:59 Creatine Kinase Cancelled CK-MB (CK-2) Troponin I Cancelled 0.028 NT-Pro-B Natriuret Pep 09/29/18 09/29/18 09/29/18 12:59 15:30 15:30 Creatine Kinase 77 161 H CK-MB (CK-2) 2.69 Troponin I 0.028 NT-Pro-B Natriuret Pep 09/29/18 09/29/18 09/30/18 18:59 18:59 00:59 Creatine Kinase 201 H 197 H CK-MB (CK-2) 3.45 Troponin I 0.023 NT-Pro-B Natriuret Pep 09/30/18 10/01/18 10/03/18 00:59 04:13 04:50 Creatine Kinase CK-MB (CK-2) 2.94 Troponin I 0.021 NT-Pro-B Natriuret Pep 2270 H 3170 H 10/09/18 04:50 Creatine Kinase CK-MB (CK-2) Troponin I NT-Pro-B Natriuret Pep 630 Impressions: Head CT 10/03/18 00:00 IMPRESSION: CHRONIC CHANGES OF ATROPHY AND MICROVASCULAR ISCHEMIA. NO ACUTE PROCESS. EVIDENCE OF ACUTE STROKE: NO. KUB X-Ray 10/05/18 00:00 IMPRESSION: Nasogastric tube tip and side port in the stomach Assessment & Plan - Diagnosis (1) Acute encephalopathy Plan: In the setting of septic shock from UTI and possible alcohol withdrawal. Currently intubated and sedated. (2) Acute kidney injury Is this a current diagnosis for this admission?: Yes Plan: Currently nonoliguric. She was initiated on hemodialysis last week because of drop in urine output as well as severe metabolic acidosis in the face of severe lactic acidosis. She seems to be making good renal recovery.All numbers are ge tting worse. Most likely going to put on for dialysis tomorrow. Discussed with the treating nurse Mirella. (3) Alcohol withdrawal Qualifiers: Complication of substance-induced condition: with delirium Qualified Code(s): F10.231 - Alcohol dependence with withdrawal delirium Is this a current diagnosis for this admission?: Yes Plan: On appropriate medications. (4) DIC (disseminated intravascular coagulation) Is this a current diagnosis for this admission?: Yes Plan: Heme oncologist has been consulted. (5) Lactic acidosis Is this a current diagnosis for this admission?: Yes Plan: Resulting in severe metabolic acidosis. Seems to have responded partially to initiation of hemodialysis. Continue on bicarbonate replacements and monitor. Withhold dialysis for the moment and see the response especially as she is making good urine output. (6) Respiratory failure Is this a current diagnosis for this admission?: Yes Plan: Currently intubated and sedated. (7) Septic shock Is this a current diagnosis for this admission?: Yes Plan: On pressors and relatively stable. She has been weaned down from 3 to just 1 pressor. Now producing more urine. (8) UTI (urinary tract infection) Qualifiers: Urinary tract infection type: site unspecified Hematuria presence: with hematuria Qualified Code(s): N39.0 - Urinary tract infection, site not specified; R31.9 - Hematuria, unspecified Is this a current diagnosis for this admission?: Yes Plan: Was given antibiotics in the early phase. Currently now growing fungal elements. (9) Anemia Qualifiers: Anemia type: unspecified type Qualified Code(s): D64.9 - Anemia, unspecified Is this a current diagnosis for this admission?: Yes Plan: In the face of septic shock and DIC. Was transfused another day and currently stable. Also history of PUD in the past. (10) Escherichia coli urinary tract infection Is this a current diagnosis for this admission?: Yes Plan: As mentioned earlier. Patient was on IV antibiotics. Now growing fungal elements. (11) Metabolic acidosis Is this a current diagnosis for this admission?: Yes
[2018-10-18] MEDS: PROPOFOL 1,000 MG/100 ML INFUS..BTL IV PRN (15:19)
[2018-10-18] MEDS: FLUCONAZOLE 200 MG/NS RTU 200 MG/100 ML RTUPB IV SCH (21:21)
[2018-10-18] MEDS: ERTAPENEM SODIUM 1 GM in NORMAL SALINE 50 ML IV SCH (21:21)
--- NOTE | 2018-10-18 22:45 | PDOC TRANSFER SUMMARY ---
General Admission Date/PCP: 09/29/18 13:24 ABNER WILKINS MD Resuscitation Status: Full Code - Transfer Diagnosis (1) Septic shock Is this a current diagnosis for this admission?: Yes (2) UTI (urinary tract infection) Is this a current diagnosis for this admission?: Yes (3) Hypokalemia Is this a current diagnosis for this admission?: Yes (4) Hypomagnesemia Is this a current diagnosis for this admission?: Yes (5) Alcohol abuse Is this a current diagnosis for this admission?: Yes (6) Metabolic encephalopathy Is this a current diagnosis for this admission?: Yes (7) Hyperammonemia Is this a current diagnosis for this admission?: Yes (8) Alcohol withdrawal Is this a current diagnosis for this admission?: Yes (9) Respiratory failure with hypoxia and hypercapnia Is this a current diagnosis for this admission?: Yes (10) Nosocomial pneumonia Is this a current diagnosis for this admission?: Yes (11) Hypotension Is this a current diagnosis for this admission?: Yes (12) Gastroparesis Is this a current diagnosis for this admission?: Yes (13) Acute kidney injury Is this a current diagnosis for this admission?: Yes (14) DIC (disseminated intravascular coagulation) Is this a current diagnosis for this admission?: Yes - Transfer Medications Home Medications: No Home Medications 09/29/18 Transfer Medications: Current Medications Albuterol/Ipratropium (Duoneb 3 Ml Ampul) 3 ml NEB [id number] PRN PRN Reason: WHEEZING/SHORTNESS OR BREATH Stop: 11/02/18 15:44 Last Admin: 10/13/18 14:35 Dose: 3 ml Documented by: Dextrose (Dextrose Inj 50% Syringe (25 Gm/50 Ml)) 12.5 gm IV PRN PRN; Protocol PRN Reason: FOR BG 50-69 IN ALERT PATIENT Stop: 11/04/18 16:27 Dextrose (Dextrose Inj 50% Syringe (25 Gm/50 Ml)) 25 gm IV PRN PRN; Protocol PRN Reason: See Label Comments Stop: 11/04/18 16:27 Epoetin Rizwan (Procrit Inj 20,000 Unit/1 Ml Vial (Renal)) 20,000 unit IV .DIALYSIS PRN PRN Reason: THIS MED IS NOT "PRN" Stop: 10/19/18 23:59 Glucagon (Glucagen Inj 1 Mg Vial) 1 mg SUBCUT PRN PRN; Protocol PRN Reason: Evaluate for BG < 70 Stop: 11/04/18 16:27 Glucose (Glutose 40% Gel 15 Gm Tube) 15 gm PO PRN PRN; Protocol PRN Reason: For BG 50-69 in Alert Patient Stop: 11/04/18 16:27 Glucose (Glutose 40% Gel 15 Gm Tube) 30 gm PO PRN PRN; Protocol PRN Reason: FOR BG < 50 IN ALERT PATIENT Stop: 11/04/18 16:27 Heparin Sodium (Porcine) (Heparin Flush 10 Unit/Ml 5 Ml Disp.Syrg) 30 unit IV Q8 [facility] Stop: 11/04/18 13:59 Last Admin: 10/18/18 21:21 Dose: Not Given Documented by: Heparin Sodium (Porcine) (Heparin Flush 10 Unit/Ml 5 Ml Disp.Syrg) 30 unit IV .AFTER EACH USE PRN PRN Reason: AFTER EACH INTERMITTENT USE Stop: 11/04/18 11:49 Potassium Chloride 20 meq/Magnesium Sulfate 8 meq/Multivitamins/Minerals 10 ml/Sodium Chloride 1,022 mls @ 100 mls/hr IV QAM [facility] Stop: 11/03/18 07:59 Last Admin: 10/18/18 10:03 Dose: 100 mls/hr Documented by: Propofol (Diprivan Rtu 1000 Mg/100 Ml Inf.Bottle) 1,000 mg in 100 mls @ 0 mls/hr IV CONTINUOUS PRN; Protocol PRN Reason: THIS MED IS NOT "PRN" Stop: 11/04/18 09:39 Last Admin: 10/18/18 15:19 Dose: 4.99 mcg/kg/min, 2.86 mls/hr Documented by: Norepinephrine Bitartrate 4 mg (/ Dextrose) 250 mls @ 0 mls/hr IV CONTINUOUS PRN; Protocol PRN Reason: THIS MED IS NOT "PRN" Stop: 11/05/18 06:07 Last Admin: 10/18/18 15:21 Dose: 4 mcg/min, 15 mls/hr Documented by: Vasopressin 100 unit/ Dextrose 250 mls @ 0 mls/hr IV CONTINUOUS PRN; Protocol PRN Reason: THIS MED IS NOT "PRN" Stop: 11/05/18 11:30 Last Titration: 10/15/18 22:12 Dose: 0 unit/min, 0 mls/hr Documented by: Hard Fat/Phenylephrine 40 mg/ (Dextrose) 250 mls @ 0 mls/hr IV CONTINUOUS PRN; Protocol PRN Reason: THIS MED IS NOT "PRN" Stop: 11/13/18 13:59 Last Titration: 10/15/18 05:00 Dose: 0 mcg/min, 0 mls/hr Documented by: Furosemide 250 mg/ Sodium (Chloride) 250 mls @ 20 mls/hr IV CONTINUOUS PRN PRN Reason: THIS MED IS NOT "PRN" Stop: 11/12/18 21:59 Last Admin: 10/18/18 15:21 Dose: 20 mls/hr, 20 mls/hr Documented by: Albumin Human (Albuminar-25 Rtu Inj 12.5 Gm/50 Ml Premix) 12.5 gm in 50 mls @ 50 mls/hr IV Q8 [facility] Stop: 10/19/18 13:59 Last Admin: 10/18/18 21:15 Dose: 50 mls/hr Documented by: Ertapenem 1 gm/ Sodium (Chloride) 50 mls @ 100 mls/hr IV QHS [facility] Stop: 10/24/18 21:59 Last Admin: 10/18/18 21:21 Dose: 100 mls/hr, 100 mls/hr Documented by: Fluconazole/Sodium Chloride (Diflucan Rtu 200 Mg/Ns 100 Ml Premix) 200 mg in 100 mls @ 100 mls/hr IV QHS [facility] Stop: 10/24/18 21:59 Last Admin: 10/18/18 21:21 Dose: 100 mls/hr, 100 mls/hr Documented by: Insulin Human Lispro (Humalog Insulin 100 Unit/1 Ml 3 Ml Vial) 0 - 12 unit SUB CUT Q6 [facility]; Protocol Stop: 11/13/18 17:59 Last Admin: 10/18/18 17:16 Dose: Not Given Documented by: Metoclopramide HCl (Reglan Inj/Pf 10 Mg/2 Ml Sdv) 5 mg IV Q8 [facility] Stop: 11/08/18 12:59 Last Admin: 10/18/18 21:14 Dose: 5 mg Documented by: Nystatin (Mycostatin Topical Powder 15 Gm) 1 applic TP BID [facility] Stop: 10/23/18 17:59 Last Admin: 10/18/18 17:15 Dose: 1 applic Documented by: Pantoprazole Sodium (Protonix Iv Inj 40 Mg Vial) 40 mg IV Q12A [facility] Stop: 10/22/18 17:59 Last Admin: 10/18/18 17:15 Dose: 40 mg Documented by: Pharmacy Profile Note (Medication Communication Order) 1 each MC .NOTICE NR Stop: 11/04/18 09:44 Sodium Bicarbonate (Sodium Bicarbonate 650 Mg Tablet) 1,300 mg PO Q12 [facility] Stop: 11/12/18 13:14 Last Admin: 10/18/18 21:14 Dose: 1,300 mg Documented by: Sodium Chloride (Nacl 0.9% Inj/Pf 10 Ml Sdv) 10 ml IV .AFTER EACH USE PRN PRN Reason: AFTER EACH INTERMITTENT USE Stop: 11/04/18 11:49 Thiamine HCl (Thiamine 100 Mg Tablet) 100 mg NG DAILY [facility] Stop: 11/01/18 09:59 Last Admin: 10/18/18 10:03 Dose: 100 mg Documented by: - Allergies Allergies/Adverse Reactions: No Known Allergies Allergy (Verified 04/05/18 07:38) Hospital Course Hospital Course: Patient 53-year-old female she was admitted on 09/29/2018 when she presented to the emergency room for evaluation of altered mental status. Family stated that the last 3 days before she presented she was declining in terms of functionality, she was more confused and less interactive she also had episode of vomiting and diarrhea per family. Patient is an alcoholic history taking was a challenge when she arrived in the emergency room the blood pressure recorded was low there was severe leukocytosis with a left shift she was diagnosed with septic shock in the emergency room.At presentation she has abnormal urinalysis that suggest that the source of the sepsis was in the urine she was initially started on Rocephin empirically. She was initially resuscitated with fluid at 30 cc/kg and subsequently maintenance fluid to Ringer's lactate. At presentation she did not require vasopressor.Patient is an alcoholic, with a history of alcohol withdrawal syndrome from previous hospitalizations she was started on alcohol withdrawal protocol from the beginning of admission. Despite the use of lorazepam based on the protocol patient was not well sedated, she was agitated, continuous IV lorazepam was consider as an option this may involve the loss of airway that may require tracheal intubation with mechanical ventilation. Ultimately patient was not able to maintain adequate oxygen saturation she was then transferred to ICU intubated on mechanical ventilation.This was complicated with low blood pressure requiring pressors, she was seen by pulmonary and bronchoscopy was done when she was transferred to ICU, the bronchoalveolar lavage did not demonstrate any bacterial pathology, only fungal elements were culture from the BAL, it was felt that this is probably colonization in nature infection, she also had right upper lobe pneumonia but there was no bacterial pathogen culture from BAL, she developed acute kidney injury she was completely anuric for a day and she required hemodialysis just for 1 day. Hospital course was complicated with DIC, she was seen by oncologist/traffic controller cable, she recommended cryoprecipitate. She had another episode of hemodialysis yesterday Physical Exam Vital Signs: Temp Pulse Resp BP Pulse Ox 97.2 F 100 22 H 111/72 98 10/18/18 22:14 10/18/18 18:00 10/18/18 22:14 10/18/18 22:14 10/18/18 22:14 Intake & Output 10/17/18 10/18/18 10/19/18 06:59 06:59 06:59 Intake Total 2530 2406 979 Output Total 1350 1535 1165 Balance 1180 871 -186 Weight 95.5 kg 95.2 kg Eye exam: PRESENT: PERRLA Respiratory exam: PRESENT: clear to auscultation dawna Cardiovascular exam: PRESENT: +S1, +S2 Results Laboratory Results: 10/18/18 04:50 10/18/18 16:25 10/18/18 10/18/18 10/18/18 04:50 04:50 04:50 WBC 15.5 H RBC 2.93 L Hgb 9.5 L Hct 28.6 L MCV 98 H MCH 32.4 MCHC 33.1 RDW 25.7 H Plt Count 71 L Seg Neutrophils % 75.5 Lymphocytes % 9.7 L Monocytes % 9.5 Eosinophils % 4.8 Basophils % 0.5 Absolute Neutrophils 11.7 H Absolute Lymphocytes 1.5 Absolute Monocytes 1.5 H Absolute Eosinophils 0.8 H Absolute Basophils 0.1 Carbonic Acid Cancelled HCO3/H2CO3 Ratio Cancelled ABG pH Cancelled ABG pCO2 Cancelled ABG pO2 Cancelled ABG HCO3 Cancelled ABG O2 Saturation Cancelled ABG Base Excess Cancelled FiO2 Cancelled Sodium 142.2 Potassium 3.2 L Chloride 113 H Carbon Dioxide 18 L Anion Gap 11 BUN 14 Creatinine 3.23 H Est GFR ( Amer) 18 L Est GFR (Non-Af Amer) 15 L Glucose 106 Lactic Acid Calcium 10.1 Magnesium 2.1 10/18/18 10/18/18 10/18/18 04:50 05:44 16:25 WBC RBC Hgb Hct MCV MCH MCHC RDW Plt Count Seg Neutrophils % Lymphocytes % Monocytes % Eosinophils % Basophils % Absolute Neutrophils Absolute Lymphocytes Absolute Monocytes Absolute Eosinophils Absolute Basophils Carbonic Acid 0.81 L HCO3/H2CO3 Ratio 19:1 ABG pH 7.40 ABG pCO2 26.8 L ABG pO2 70.9 L ABG HCO3 16.1 L ABG O2 Saturation 94.6 ABG Base Excess -7.5 FiO2 30% Sodium Potassium 3.4 L Chloride Carbon Dioxide Anion Gap BUN Creatinine Est GFR ( Amer) Est GFR (Non-Af Amer) Glucose Lactic Acid 0.9 Calcium Magnesium 09/29/18 09/29/18 09/29/18 10:44 10:44 12:59 Creatine Kinase Cancelled CK-MB (CK-2) Troponin I Cancelled 0.028 NT-Pro-B Natriuret Pep 09/29/18 09/29/18 09/29/18 12:59 15:30 15:30 Creatine Kinase 77 161 H CK-MB (CK-2) 2.69 Troponin I 0.028 NT-Pro-B Natriuret Pep 09/29/18 09/29/18 09/30/18 18:59 18:59 00:59 Creatine Kinase 201 H 197 H CK-MB (CK-2) 3.45 Troponin I 0.023 NT-Pro-B Natriuret Pep 09/30/18 10/01/18 10/03/18 00:59 04:13 04:50 Creatine Kinase CK-MB (CK-2) 2.94 Troponin I 0.021 NT-Pro-B Natriuret Pep 2270 H 3170 H 10/09/18 04:50 Creatine Kinase CK-MB (CK-2) Troponin I NT-Pro-B Natriuret Pep 630 Impressions: Head CT 10/03/18 00:00 IMPRESSION: CHRONIC CHANGES OF ATROPHY AND MICROVASCULAR ISCHEMIA. NO ACUTE PROCESS. EVIDENCE OF ACUTE STROKE: NO. KUB X-Ray 10/05/18 00:00 IMPRESSION: Nasogastric tube tip and side port in the stomach
--- NOTE | 2018-10-18 22:48 | PDOC PROGRESS REPORT ---
Subjective Progress Note for:: 10/18/18 Subjective:: Patient's family is requesting for transfer I called [facility], patient was accepted in transfer but there is no bed available, she is on the waiting list Reason For Visit: SEPSIS, UTI, AMS, ACUTE KIDNEY INJURY, DELIRIUM Physical Exam Vital Signs: Temp Pulse Resp BP Pulse Ox 97.2 F 100 22 H 111/72 98 10/18/18 22:14 10/18/18 18:00 10/18/18 22:14 10/18/18 22:14 10/18/18 22:14 Intake & Output 10/17/18 10/18/18 10/19/18 06:59 06:59 06:59 Intake Total 2530 2406 979 Output Total 1350 1535 1165 Balance 1180 871 -186 Weight 95.5 kg 95.2 kg General appearance: PRESENT: no acute distress Eye exam: PRESENT: PERRLA Respiratory exam: PRESENT: clear to auscultation dawna Cardiovascular exam: PRESENT: +S1, +S2 GI/Abdominal exam: PRESENT: soft Results Laboratory Results: 10/18/18 04:50 10/18/18 16:25 10/18/18 10/18/18 10/18/18 04:50 04:50 04:50 WBC 15.5 H RBC 2.93 L Hgb 9.5 L Hct 28.6 L MCV 98 H MCH 32.4 MCHC 33.1 RDW 25.7 H Plt Count 71 L Seg Neutrophils % 75.5 Lymphocytes % 9.7 L Monocytes % 9.5 Eosinophils % 4.8 Basophils % 0.5 Absolute Neutrophils 11.7 H Absolute Lymphocytes 1.5 Absolute Monocytes 1.5 H Absolute Eosinophils 0.8 H Absolute Basophils 0.1 Carbonic Acid Cancelled HCO3/H2CO3 Ratio Cancelled ABG pH Cancelled ABG pCO2 Cancelled ABG pO2 Cancelled ABG HCO3 Cancelled ABG O2 Saturation Cancelled ABG Base Excess Cancelled FiO2 Cancelled Sodium 142.2 Potassium 3.2 L Chloride 113 H Carbon Dioxide 18 L Anion Gap 11 BUN 14 Creatinine 3.23 H Est GFR ( Amer) 18 L Est GFR (Non-Af Amer) 15 L Glucose 106 Lactic Acid Calcium 10.1 Magnesium 2.1 10/18/18 10/18/18 10/18/18 04:50 05:44 16:25 WBC RBC Hgb Hct MCV MCH MCHC RDW Plt Count Seg Neutrophils % Lymphocytes % Monocytes % Eosinophils % Basophils % Absolute Neutrophils Absolute Lymphocytes Absolute Monocytes Absolute Eosinophils Absolute Basophils Carbonic Acid 0.81 L HCO3/H2CO3 Ratio 19:1 ABG pH 7.40 ABG pCO2 26.8 L ABG pO2 70.9 L ABG HCO3 16.1 L ABG O2 Saturation 94.6 ABG Base Excess -7.5 FiO2 30% Sodium Potassium 3.4 L Chloride Carbon Dioxide Anion Gap BUN Creatinine Est GFR ( Amer) Est GFR (Non-Af Amer) Glucose Lactic Acid 0.9 Calcium Magnesium 09/29/18 09/29/18 09/29/18 10:44 10:44 12:59 Creatine Kinase Cancelled CK-MB (CK-2) Troponin I Cancelled 0.028 NT-Pro-B Natriuret Pep 09/29/18 09/29/18 09/29/18 12:59 15:30 15:30 Creatine Kinase 77 161 H CK-MB (CK-2) 2.69 Troponin I 0.028 NT-Pro-B Natriuret Pep 09/29/18 09/29/18 09/30/18 18:59 18:59 00:59 Creatine Kinase 201 H 197 H CK-MB (CK-2) 3.45 Troponin I 0.023 NT-Pro-B Natriuret Pep 09/30/18 10/01/18 10/03/18 00:59 04:13 04:50 Creatine Kinase CK-MB (CK-2) 2.94 Troponin I 0.021 NT-Pro-B Natriuret Pep 2270 H 3170 H 10/09/18 04:50 Creatine Kinase CK-MB (CK-2) Troponin I NT-Pro-B Natriuret Pep 630 Impressions: Head CT 10/03/18 00:00 IMPRESSION: CHRONIC CHANGES OF ATROPHY AND MICROVASCULAR ISCHEMIA. NO ACUTE PROCESS. EVIDENCE OF ACUTE STROKE: NO. KUB X-Ray 10/05/18 00:00 IMPRESSION: Nasogastric tube tip and side port in the stomach Assessment & Plan - Diagnosis (1) Septic shock Is this a current diagnosis for this admission?: Yes (2) UTI (urinary tract infection) Qualifiers: Urinary tract infection type: site unspecified Hematuria presence: with hematuria Qualified Code(s): N39.0 - Urinary tract infection, site not specified; R31.9 - Hematuria, unspecified Is this a current diagnosis for this admission?: Yes (3) Hypokalemia Is this a current diagnosis for this admission?: Yes (4) Hypomagnesemia Is this a current diagnosis for this admission?: Yes (5) Alcohol abuse Is this a current diagnosis for this admission?: Yes (6) Metabolic encephalopathy Is this a current diagnosis for this admission?: Yes (7) Hyperammonemia Is this a current diagnosis for this admission?: Yes (8) Alcohol withdrawal Qualifiers: Complication of substance-induced condition: with delirium Qualified Code(s): F10.231 - Alcohol dependence with withdrawal delirium Is this a current diagnosis for this admission?: Yes (9) Respiratory failure with hypoxia and hypercapnia Qualifiers: Chronicity: acute Qualified Code(s): J96.01 - Acute respiratory failure with hypoxia; J96.02 - Acute respiratory failure with hypercapnia Is this a current diagnosis for this admission?: Yes (10) Nosocomial pneumonia Is this a current diagnosis for this admission?: Yes (11) Hypotension Qualifiers: Hypotension type: unspecified hypotension type Qualified Code(s): I95.9 - Hypotension, unspecified Is this a current diagnosis for this admission?: Yes (12) Gastroparesis Is this a current diagnosis for this admission?: Yes (13) Acute kidney injury Is this a current diagnosis for this admission?: Yes (14) DIC (disseminated intravascular coagulation) Is this a current diagnosis for this admission?: Yes
[2018-10-19] MEDS: NORMAL SALINE 250 ML with FUROSEMIDE 250 MG IV PRN ×4 (04:39→17:22)
[2018-10-19 04:57] LABS: ABSOLUTE BASOPHILS # (AUTO) 0.1 10^3/uL (0.0-0.2); ABSOLUTE LYMPHOCYTES (AUTO) 1.8 10^3/uL (0.5-4.7); ABSOLUTE MONOCYTES (AUTO) 1.2 10^3/uL (0.1-1.4); ABSOLUTE NEUT (AUTO) 10.7 10^3/uL (1.7-8.2); BASOPHILS % (AUTO) 0.8 % (0-2); EOSINOPHILS % (AUTO) 6.8 % (0-6); HEMATOCRIT 26.9 % (36.0-47.0); LYMPHOCYTES % (AUTO) 12.4 % (13-45); MEAN CORPUSCULAR HEMOGLOBIN 32.5 pg (27.0-33.4); MEAN CORPUSCULAR HGB CONC 33.6 g/dL (32.0-36.0); MEAN CORPUSCULAR VOLUME 97 fl (80-97); MONOCYTES % (AUTO) 8.2 % (3-13); RED BLOOD COUNT 2.78 10^6/uL (3.72-5.28); RED CELL DISTRIBUTION WIDTH 25.2 % (11.5-14.0); SEGMENTED NEUTROPHILS % (AUTO) 71.8 % (42-78); TOTAL CELLS COUNTED % (AUTO) 100 %; WHITE BLOOD COUNT 14.9 10^3/uL (4.0-10.5)
[2018-10-19] MEDS ORDERED: EPOETIN ALFA INJ 20000 UNIT/1 ML VIAL (RENAL) IV PRN (05:00)
[2018-10-19 05:11] LABS: ALANINE AMINOTRANSFERASE 23 U/L (9-52); ALBUMIN 2.5 g/dL (3.5-5.0); ALKALINE PHOSPHATASE 120 U/L (38-126); ANION GAP 12 (5-19); ASPARTATE AMINO TRANSFERASE 27 U/L (14-36); BILIRUBIN,DIRECT 1.5 mg/dL (0.0-0.4); BILIRUBIN,TOTAL 1.8 mg/dL (0.2-1.3); BLOOD UREA NITROGEN 14 mg/dL (7-20); CARBON DIOXIDE 16 mmol/L (22-30); CHLORIDE 114 mmol/L (98-107); GLUCOSE 106 mg/dL (75-110); POTASSIUM 3.3 mmol/L (3.6-5.0)
[2018-10-19] MEDS: ALBUMIN HUMAN 12.5 GM/50 ML RTUINJ IV SCH (05:26)
[2018-10-19] MEDS: PANTOPRAZOLE SODIUM 40 MG VIAL IV SCH ×2 (05:31→17:10)
[2018-10-19] MEDS: METOCLOPRAMIDE HCL INJ/PF 10 MG/2 ML SDV IV SCH ×3 (05:31→21:43)
[2018-10-19] MEDS: INSULIN LISPRO 100 UNIT/ML 3 ML VIAL SUBCUT SCH ×4 (05:32→17:17)
[2018-10-19 05:59] LABS: ANISOCYTOSIS 3+; PLATELET COMMENT DECREASED; PLATELET COUNT 70 10^3/uL (150-450); POIKILOCYTOSIS 1+; TARGET CELLS 1+; TEAR DROP CELLS SLIGHT
[2018-10-19] MEDS: POTASSIUM CHLORIDE 20 MEQ/50 ML RTU IV SCH ×2 (06:00→08:14)
[2018-10-19 06:43] LABS: ARTERIAL BLOOD BASE EXCESS -5.9 mmol/L; ARTERIAL BLOOD H2CO3 0.77 mmol/L (1.05-1.35); ARTERIAL BLOOD HCO3 16.7 mmol/L (20-24); ARTERIAL BLOOD O2 SATURATION 95.6 % (94-98); ARTERIAL BLOOD PCO2 25.5 mmHg (35-45); ARTERIAL BLOOD PH 7.44 (7.35-7.45); ARTERIAL BLOOD PO2 74.1 mmHg (80-100); ARTERIAL BLOOD TOTAL CO2 17.5 mmol/L (21-25)
[2018-10-19 06:56] LABS: ARTERIAL BLOOD FIO2 30%
[2018-10-19 07:03] LABS: INTERNATIONAL RATION (INR) 1.38; PROTHROMBIN TIME 17.6 SEC (11.4-15.4)
[2018-10-19 07:04] LABS: FIBRINOGEN 221 mg/dL (209-497)
[2018-10-19 07:05] LABS: PARTIAL THROMBOPLASTIN TIME 44.1 SEC (23.5-35.8)
--- NOTE | 2018-10-19 07:33 | RADIOLOGY REPORT (SQ) ---
EXAM DESCRIPTION: X-ray single view chest. CLINICAL HISTORY: 53 years Female, pneumonia COMPARISON: 10/18/2018 and 10/17/2018 TECHNIQUE: Single (one) portable x-ray view of the chest performed on 10/19/2018 at 6:30 AM FINDINGS: The lungs are hypoinflated. There is increasing opacification of the right lung apex with increasing volume loss of the right hemithorax which may be due to a combination of pleural fluid and atelectasis. There is mild left perihilar airspace disease. There is no evidence of a pneumothorax. The cardiac silhouette is normal in size and configuration. The mediastinal contours are normal. No acute osseous abnormality is identified. No focal soft tissue abnormalities are seen. Lines and tubes: The right IJ central venous catheter, endotracheal tube and feeding tube are grossly stable. IMPRESSION: 1. Increasing opacification of the right lung apex and increasing volume loss of the right lung which may be due to a combination of pleural fluid and atelectasis. 2. Grossly stable mild left perihilar airspace disease. 3. Stable life support lines and tubes.
[2018-10-19] MEDS: NORMAL SALINE 1000 ML 1,000 ML with POTASSIUM CHLORIDE 20 MEQ, MAGNESIUM SULFATE 8 MEQ,... IV SCH ×4 (08:19)
[2018-10-19] MEDS: NYSTATIN TOPICAL POWDER 15 GM TP SCH ×2 (11:04→17:19)
[2018-10-19] MEDS: SODIUM BICARBONATE 650 MG TABLET PO SCH ×2 (11:05→21:43)
[2018-10-19] MEDS: THIAMINE HCL 100 MG TABLET NG SCH (11:05)
[2018-10-19] MEDS: DEXTROSE 5%-WATER 250 ML with NOREPINEPHRINE BITARTRATE 4 MG IV PRN ×4 (12:11→22:11)
--- NOTE | 2018-10-19 16:57 | PDOC PROGRESS REPORT ---
Subjective Progress Note for:: 10/19/18 Reason For Visit: Patient seen today in the ICU. She was initially seen early in the morning. She remains intubated and sedated. Continues to make urine. She still continues on 1 out of 3 pressors that she was on initially. She was later seen on dialysis in the afternoon. She is undergoing dialysis without any issues but for the fact the blood pressure drops when you try to remove fluid. She is continuing on Levophed. Dialysis orders were reviewed with the treating apolonia lysis nurse. Labs and medications were reviewed. Physical Exam Vital Signs: Temp Pulse Resp BP Pulse Ox 100.0 F 103 H 22 H 118/85 98 10/19/18 16:00 10/19/18 16:00 10/19/18 16:00 10/19/18 16:00 10/19/18 16:24 Intake & Output 10/18/18 10/19/18 10/20/18 06:59 06:59 06:59 Intake Total 2406 2571 1026 Output Total 1535 1815 500 Balance 871 756 526 Weight 95.2 kg 93.5 kg Exam: Remains intubated and sedated. Respiratory exam: PRESENT: clear to auscultation dawna, crackles - Scattered., rhonchi - Few scattered Cardiovascular exam: PRESENT: +S1, +S2, systolic murmur GI/Abdominal exam: PRESENT: normal bowel sounds, soft. ABSENT: organomegaly, tenderness Extremities exam: PRESENT: pedal edema - As part of anasarca. Neurological exam: PRESENT: altered Skin exam: ABSENT: cyanosis, erythema, mottled, rash Results Laboratory Results: 10/19/18 04:35 10/19/18 12:00 10/18/18 10/19/18 10/19/18 16:25 04:35 04:35 WBC 14.9 H RBC 2.78 L Hgb 9.0 L Hct 26.9 L MCV 97 MCH 32.5 MCHC 33.6 RDW 25.2 H Plt Count 70 L Seg Neutrophils % 71.8 Lymphocytes % 12.4 L Monocytes % 8.2 Eosinophils % 6.8 H Basophils % 0.8 Absolute Neutrophils 10.7 H Absolute Lymphocytes 1.8 Absolute Monocytes 1.2 Absolute Eosinophils 1.0 H Absolute Basophils 0.1 Carbonic Acid HCO3/H2CO3 Ratio ABG pH ABG pCO2 ABG pO2 ABG HCO3 ABG O2 Saturation ABG Base Excess FiO2 Sodium 142.0 Potassium 3.4 L 3.3 L Chloride 114 H Carbon Dioxide 16 L Anion Gap 12 BUN 14 Creatinine 3.43 H Est GFR ( Amer) 17 L Est GFR (Non-Af Amer) 14 L Glucose 106 Calcium 10.0 Magnesium 2.2 Total Bilirubin 1.8 H AST 27 ALT 23 Alkaline Phosphatase 120 Total Protein 6.0 L Albumin 2.5 L 10/19/18 10/19/18 10/19/18 05:27 06:29 12:00 WBC RBC Hgb Hct MCV MCH MCHC RDW Plt Count Seg Neutrophils % Lymphocytes % Monocytes % Eosinophils % Basophils % Absolute Neutrophils Absolute Lymphocytes Absolute Monocytes Absolute Eosinophils Absolute Basophils Carbonic Acid Cancelled 0.77 L HCO3/H2CO3 Ratio Cancelled 21:1 ABG pH Cancelled 7.44 ABG pCO2 Cancelled 25.5 L ABG pO2 Cancelled 74.1 L ABG HCO3 Cancelled 16.7 L ABG O2 Saturation Cancelled 95.6 ABG Base Excess Cancelled -5.9 FiO2 Cancelled 30% Sodium Potassium 3.9 Chloride Carbon Dioxide Anion Gap BUN Creatinine Est GFR ( Amer) Est GFR (Non-Af Amer) Glucose Calcium Magnesium Total Bilirubin AST ALT Alkaline Phosphatase Total Protein Albumin 09/29/18 09/29/18 09/29/18 10:44 10:44 12:59 Creatine Kinase Cancelled CK-MB (CK-2) Troponin I Cancelled 0.028 NT-Pro-B Natriuret Pep 09/29/18 09/29/18 09/29/18 12:59 15:30 15:30 Creatine Kinase 77 161 H CK-MB (CK-2) 2.69 Troponin I 0.028 NT-Pro-B Natriuret Pep 09/29/18 09/29/18 09/30/18 18:59 18:59 00:59 Creatine Kinase 201 H 197 H CK-MB (CK-2) 3.45 Troponin I 0.023 NT-Pro-B Natriuret Pep 09/30/18 10/01/18 10/03/18 00:59 04:13 04:50 Creatine Kinase CK-MB (CK-2) 2.94 Troponin I 0.021 NT-Pro-B Natriuret Pep 2270 H 3170 H 10/09/18 04:50 Creatine Kinase CK-MB (CK-2) Troponin I NT-Pro-B Natriuret Pep 630 Impressions: Head CT 10/03/18 00:00 IMPRESSION: CHRONIC CHANGES OF ATROPHY AND MICROVASCULAR ISCHEMIA. NO ACUTE PROCESS. EVIDENCE OF ACUTE STROKE: NO. KUB X-Ray 10/05/18 00:00 IMPRESSION: Nasogastric tube tip and side port in the stomach Chest X-Ray 10/19/18 07:00 IMPRESSION: 1. Increasing opacification of the right lung apex and increasing volume loss of the right lung which may be due to a combination of pleural fluid and atelectasis. 2. Grossly stable mild left perihilar airspace disease. 3. Stable life support lines and tubes. Assessment & Plan - Diagnosis (1) Acute encephalopathy Plan: In the setting of septic shock from UTI and possible alcohol withdrawal. Currently intubated and sedated. (2) Acute kidney injury Is this a current diagnosis for this admission?: Yes Plan: Currently nonoliguric. She was initiated on hemodialysis last week because of drop in urine output as well as severe metabolic acidosis in the face of severe lactic acidosis. Last dialysis was on Wednesday and the prescription on Wednesday.However renal numbers were getting worse and she still has got generalized fluid overload and so she is being put back on dialysis today. However we cannot remove too much of fluid as she was dropping her blood pressure. Therefore will try to limit her fluid removal to approximately 1-1.5 L. Dialysis orders were reviewed with the treating dialysis nurse. Hopefully she will make renal recovery that I do not have to consider putting her on CRRT.Discussed with the treating ICU nurse of maintaining her hemodynamic s tability with the pressors. (3) Alcohol withdrawal Qualifiers: Complication of substance-induced condition: with delirium Qualified Code(s): F10.231 - Alcohol dependence with withdrawal delirium Is this a current diagnosis for this admission?: Yes Plan: On appropriate medications. (4) DIC (disseminated intravascular coagulation) Is this a current diagnosis for this admission?: Yes Plan: Heme oncologist has been consulted. (5) Lactic acidosis Is this a current diagnosis for this admission?: Yes Plan: Resulting in severe metabolic acidosis. Seems to have responded partially to initiation of hemodialysis. Continue on bicarbonate replacements and monitor. (6) Respiratory failure Is this a current diagnosis for this admission?: Yes Plan: Currently intubated and sedated. (7) Septic shock Is this a current diagnosis for this admission?: Yes Plan: On pressors and relatively stable. She has been weaned down from 3 to just 1 pressor. Now producing more urine. (8) UTI (urinary tract infection) Qualifiers: Urinary tract infection type: site unspecified Hematuria presence: with hematuria Qualified Code(s): N39.0 - Urinary tract infection, site not specified; R31.9 - Hematuria, unspecified Is this a current diagnosis for this admission?: Yes Plan: Was given antibiotics in the early phase. Currently now growing fungal elements and is on Diflucan. (9) Anemia Qualifiers: Anemia type: unspecified type Qualified Code(s): D64.9 - Anemia, unspecified Is this a current diagnosis for this admission?: Yes Plan: In the face of septic shock and DIC. Was transfused another day and currently stable. Also history of PUD in the past.Heme oncologist on board. (10) Metabolic acidosis Is this a current diagnosis for this admission?: Yes Plan: Some worsening of metabolic acidosis. She is going to improve partially on hemodialysis today and will continue bicarb replacements. Monitor.
[2018-10-19] MEDS: PROPOFOL 1,000 MG/100 ML INFUS..BTL IV PRN (17:16)
--- NOTE | 2018-10-19 19:09 | PDOC PROGRESS REPORT ---
Subjective Progress Note for:: 10/19/18 Subjective:: Patient was seen by the bedside, intubated sedated, I also had a long discussion with the spouse about her condition, the family was requesting for transfer to tertiary care, I called [facility] yesterday she was accepted in transfer but there is no bed available, [facility] do not accept transfer based on family request Reason For Visit: SEPSIS, UTI, AMS, ACUTE KIDNEY INJURY, DELIRIUM Physical Exam Vital Signs: Temp Pulse Resp BP Pulse Ox 97.0 F 104 H 22 H 116/85 98 10/19/18 18:30 10/19/18 18:00 10/19/18 18:30 10/19/18 18:30 10/19/18 18:30 Intake & Output 10/18/18 10/19/18 10/20/18 06:59 06:59 06:59 Intake Total 2406 2571 1381 Output Total 1535 1815 2400 Balance 871 756 -1019 Weight 95.2 kg 93.5 kg Eye exam: PRESENT: PERRLA Respiratory exam: PRESENT: clear to auscultation dawna Cardiovascular exam: PRESENT: +S1, +S2 GI/Abdominal exam: PRESENT: soft Neurological exam: PRESENT: other - Sedated on medical ventilation Results Laboratory Results: 10/19/18 04:35 10/19/18 12:00 10/19/18 10/19/18 10/19/18 04:35 04:35 05:27 WBC 14.9 H RBC 2.78 L Hgb 9.0 L Hct 26.9 L MCV 97 MCH 32.5 MCHC 33.6 RDW 25.2 H Plt Count 70 L Seg Neutrophils % 71.8 Lymphocytes % 12.4 L Monocytes % 8.2 Eosinophils % 6.8 H Basophils % 0.8 Absolute Neutrophils 10.7 H Absolute Lymphocytes 1.8 Absolute Monocytes 1.2 Absolute Eosinophils 1.0 H Absolute Basophils 0.1 Carbonic Acid Cancelled HCO3/H2CO3 Ratio Cancelled ABG pH Cancelled ABG pCO2 Cancelled ABG pO2 Cancelled ABG HCO3 Cancelled ABG O2 Saturation Cancelled ABG Base Excess Cancelled FiO2 Cancelled Sodium 142.0 Potassium 3.3 L Chloride 114 H Carbon Dioxide 16 L Anion Gap 12 BUN 14 Creatinine 3.43 H Est GFR ( Amer) 17 L Est GFR (Non-Af Amer) 14 L Glucose 106 Calcium 10.0 Magnesium 2.2 Total Bilirubin 1.8 H AST 27 ALT 23 Alkaline Phosphatase 120 Total Protein 6.0 L Albumin 2.5 L 10/19/18 10/19/18 06:29 12:00 WBC RBC Hgb Hct MCV MCH MCHC RDW Plt Count Seg Neutrophils % Lymphocytes % Monocytes % Eosinophils % Basophils % Absolute Neutrophils Absolute Lymphocytes Absolute Monocytes Absolute Eosinophils Absolute Basophils Carbonic Acid 0.77 L HCO3/H2CO3 Ratio 21:1 ABG pH 7.44 ABG pCO2 25.5 L ABG pO2 74.1 L ABG HCO3 16.7 L ABG O2 Saturation 95.6 ABG Base Excess -5.9 FiO2 30% Sodium Potassium 3.9 Chloride Carbon Dioxide Anion Gap BUN Creatinine Est GFR ( Amer) Est GFR (Non-Af Amer) Glucose Calcium Magnesium Total Bilirubin AST ALT Alkaline Phosphatase Total Protein Albumin 09/29/18 09/29/18 09/29/18 10:44 10:44 12:59 Creatine Kinase Cancelled CK-MB (CK-2) Troponin I Cancelled 0.028 NT-Pro-B Natriuret Pep 09/29/18 09/29/18 09/29/18 12:59 15:30 15:30 Creatine Kinase 77 161 H CK-MB (CK-2) 2.69 Troponin I 0.028 NT-Pro-B Natriuret Pep 09/29/18 09/29/18 09/30/18 18:59 18:59 00:59 Creatine Kinase 201 H 197 H CK-MB (CK-2) 3.45 Troponin I 0.023 NT-Pro-B Natriuret Pep 09/30/18 10/01/18 10/03/18 00:59 04:13 04:50 Creatine Kinase CK-MB (CK-2) 2.94 Troponin I 0.021 NT-Pro-B Natriuret Pep 2270 H 3170 H 10/09/18 04:50 Creatine Kinase CK-MB (CK-2) Troponin I NT-Pro-B Natriuret Pep 630 Impressions: Head CT 10/03/18 00:00 IMPRESSION: CHRONIC CHANGES OF ATROPHY AND MICROVASCULAR ISCHEMIA. NO ACUTE PROCESS. EVIDENCE OF ACUTE STROKE: NO. KUB X-Ray 10/05/18 00:00 IMPRESSION: Nasogastric tube tip and side port in the stomach Chest X-Ray 10/19/18 07:00 IMPRESSION: 1. Increasing opacification of the right lung apex and increasing volume loss of the right lung which may be due to a combination of pleural fluid and atelectasis. 2. Grossly stable mild left perihilar airspace disease. 3. Stable life support lines and tubes. Assessment & Plan - Diagnosis (1) Septic shock Is this a current diagnosis for this admission?: Yes Plan: She continues to require vasopressors,and IV antibiotic (2) UTI (urinary tract infection) Qualifiers: Urinary tract infection type: site unspecified Hematuria presence: with hematuria Qualified Code(s): N39.0 - Urinary tract infection, site not specified; R31.9 - Hematuria, unspecified Is this a current diagnosis for this admission?: Yes (3) Hypokalemia Is this a current diagnosis for this admission?: Yes (4) Hypomagnesemia Is this a current diagnosis for this admission?: Yes (5) Alcohol abuse Is this a current diagnosis for this admission?: Yes (6) Metabolic encephalopathy Is this a current diagnosis for this admission?: Yes (7) Hyperammonemia Is this a current diagnosis for this admission?: Yes (8) Alcohol withdrawal Qualifiers: Complication of substance-induced condition: with delirium Qualified Code(s): F10.231 - Alcohol dependence with withdrawal delirium Is this a current diagnosis for this admission?: Yes (9) Respiratory failure with hypoxia and hypercapnia Qualifiers: Chronicity: acute Qualified Code(s): J96.01 - Acute respiratory failure with hypoxia; J96.02 - Acute respiratory failure with hypercapnia Is this a current diagnosis for this admission?: Yes Plan: continue on mechanical ventilation (10) Nosocomial pneumonia Is this a current diagnosis for this admission?: Yes Plan: Bronchial washing was positive for gram positive cocci in clusters, patient already empirically on ertapenem (11) Hypotension Qualifiers: Hypotension type: unspecified hypotension type Qualified Code(s): I95.9 - Hypotension, unspecified Is this a current diagnosis for this admission?: Yes Plan: Continue IV norepinephrine (12) Gastroparesis Is this a current diagnosis for this admission?: Yes (13) Acute kidney injury Is this a current diagnosis for this admission?: Yes (14) DIC (disseminated intravascular coagulation) Is this a current diagnosis for this admission?: Yes
[2018-10-19] MEDS: FLUCONAZOLE 200 MG/NS RTU 200 MG/100 ML RTUPB IV SCH (21:43)
[2018-10-19] MEDS: ERTAPENEM SODIUM 1 GM in NORMAL SALINE 50 ML IV SCH (21:43)
[2018-10-20] MEDS: INSULIN LISPRO 100 UNIT/ML 3 ML VIAL SUBCUT SCH ×4 (00:27→18:59)
[2018-10-20 03:54] LABS: ABSOLUTE BASOPHILS # (AUTO) 0.1 10^3/uL (0.0-0.2); ABSOLUTE LYMPHOCYTES (AUTO) 1.7 10^3/uL (0.5-4.7); ABSOLUTE MONOCYTES (AUTO) 1.3 10^3/uL (0.1-1.4); ABSOLUTE NEUT (AUTO) 11.1 10^3/uL (1.7-8.2); BASOPHILS % (AUTO) 0.9 % (0-2); EOSINOPHILS % (AUTO) 6.8 % (0-6); HEMATOCRIT 27.7 % (36.0-47.0); HEMOGLOBIN 9.2 g/dL (12.0-15.5); LYMPHOCYTES % (AUTO) 11.1 % (13-45); MEAN CORPUSCULAR HEMOGLOBIN 32.1 pg (27.0-33.4); MEAN CORPUSCULAR HGB CONC 33.3 g/dL (32.0-36.0); MEAN CORPUSCULAR VOLUME 96 fl (80-97); MONOCYTES % (AUTO) 8.5 % (3-13); RED BLOOD COUNT 2.88 10^6/uL (3.72-5.28); RED CELL DISTRIBUTION WIDTH 24.9 % (11.5-14.0); SEGMENTED NEUTROPHILS % (AUTO) 72.7 % (42-78); TOTAL CELLS COUNTED % (AUTO) 100 %; WHITE BLOOD COUNT 15.2 10^3/uL (4.0-10.5)
[2018-10-20 03:58] LABS: FIBRINOGEN 211 mg/dL (209-497); INTERNATIONAL RATION (INR) 1.34; PROTHROMBIN TIME 17.2 SEC (11.4-15.4)
[2018-10-20 03:59] LABS: PARTIAL THROMBOPLASTIN TIME 42.6 SEC (23.5-35.8)
[2018-10-20 04:08] LABS: ANION GAP 11 (5-19); BLOOD UREA NITROGEN 11 mg/dL (7-20); CALCIUM 9.8 mg/dL (8.4-10.2); CARBON DIOXIDE 20 mmol/L (22-30); CHLORIDE 111 mmol/L (98-107); GLUCOSE 109 mg/dL (75-110); POTASSIUM 3.4 mmol/L (3.6-5.0)
[2018-10-20 04:19] LABS: PLATELET COUNT 57 10^3/uL (150-450)
[2018-10-20 04:21] LABS: ANISOCYTOSIS 3+
[2018-10-20 04:22] LABS: HYPOCHROMASIA 2+; PLATELET COMMENT DECREASED; POIKILOCYTOSIS 1+; STOMATOCYTES 1+
[2018-10-20] MEDS: METOCLOPRAMIDE HCL INJ/PF 10 MG/2 ML SDV IV SCH ×3 (05:12→21:08)
[2018-10-20] MEDS: POTASSIUM CHLORIDE 20 MEQ/50 ML RTU IV SCH ×2 (05:12→08:57)
[2018-10-20] MEDS: PANTOPRAZOLE SODIUM 40 MG VIAL IV SCH ×2 (05:12→18:59)
[2018-10-20 07:27] LABS: ARTERIAL BLOOD BASE EXCESS -0.6 mmol/L; ARTERIAL BLOOD FIO2 35%; ARTERIAL BLOOD H2CO3 0.84 mmol/L (1.05-1.35); ARTERIAL BLOOD HCO3 21.7 mmol/L (20-24); ARTERIAL BLOOD O2 SATURATION 96.1 % (94-98); ARTERIAL BLOOD PCO2 27.8 mmHg (35-45); ARTERIAL BLOOD PH 7.51 (7.35-7.45); ARTERIAL BLOOD PO2 72.6 mmHg (80-100); ARTERIAL BLOOD TOTAL CO2 22.6 mmol/L (21-25)
--- NOTE | 2018-10-20 07:45 | PDOC PROGRESS REPORT ---
Subjective Progress Note for:: 10/20/18 Subjective:: Patient remains sedated on ventilator. Nurses report no new issues overnight. She remains septic on antibiotics and 1 presser. She is on Diflucan and ertipenum. ROS: unobtainable due to ET tube. Reason For Visit: SEPSIS, UTI, AMS, ACUTE KIDNEY INJURY, DELIRIUM Physical Exam Vital Signs: Temp Pulse Resp BP Pulse Ox 96.6 F L 103 H 22 H 95/71 L 99 10/20/18 06:16 10/19/18 22:00 10/20/18 06:16 10/20/18 06:16 10/20/18 06:16 Intake & Output 10/19/18 10/20/18 10/21/18 06:59 06:59 06:59 Intake Total 2571 1895 Output Total 1815 3100 Balance 756 -1205 Weight 93.5 kg 92.8 kg General appearance: PRESENT: well-developed, well-nourished Head exam: PRESENT: normocephalic Respiratory exam: PRESENT: clear to auscultation dawna Cardiovascular exam: PRESENT: RRR GI/Abdominal exam: PRESENT: distended, soft, tenderness - RLQ Extremities exam: PRESENT: +1 edema Skin exam: PRESENT: normal color Results Laboratory Results: 10/20/18 03:41 10/20/18 03:41 10/19/18 10/20/18 10/20/18 12:00 03:41 03:41 WBC 15.2 H RBC 2.88 L Hgb 9.2 L Hct 27.7 L MCV 96 MCH 32.1 MCHC 33.3 RDW 24.9 H Plt Count 57 L Seg Neutrophils % 72.7 Lymphocytes % 11.1 L Monocytes % 8.5 Eosinophils % 6.8 H Basophils % 0.9 Absolute Neutrophils 11.1 H Absolute Lymphocytes 1.7 Absolute Monocytes 1.3 Absolute Eosinophils 1.0 H Absolute Basophils 0.1 Carbonic Acid HCO3/H2CO3 Ratio ABG pH ABG pCO2 ABG pO2 ABG HCO3 ABG O2 Saturation ABG Base Excess FiO2 Sodium 142.0 Potassium 3.9 3.4 L Chloride 111 H Carbon Dioxide 20 L Anion Gap 11 BUN 11 Creatinine 3.01 H Est GFR ( Amer) 20 L Est GFR (Non-Af Amer) 16 L Glucose 109 Calcium 9.8 Magnesium 2.1 10/20/18 10/20/18 06:15 06:54 WBC RBC Hgb Hct MCV MCH MCHC RDW Plt Count Seg Neutrophils % Lymphocytes % Monocytes % Eosinophils % Basophils % Absolute Neutrophils Absolute Lymphocytes Absolute Monocytes Absolute Eosinophils Absolute Basophils Carbonic Acid Cancelled 0.84 L HCO3/H2CO3 Ratio Cancelled 25:1 ABG pH Cancelled 7.51 H ABG pCO2 Cancelled 27.8 L ABG pO2 Cancelled 72.6 L ABG HCO3 Cancelled 21.7 ABG O2 Saturation Cancelled 96.1 ABG Base Excess Cancelled -0.6 FiO2 Cancelled 35% Sodium Potassium Chloride Carbon Dioxide Anion Gap BUN Creatinine Est GFR ( Amer) Est GFR (Non-Af Amer) Glucose Calcium Magnesium 09/29/18 09/29/18 09/29/18 10:44 10:44 12:59 Creatine Kinase Cancelled CK-MB (CK-2) Troponin I Cancelled 0.028 NT-Pro-B Natriuret Pep 09/29/18 09/29/18 09/29/18 12:59 15:30 15:30 Creatine Kinase 77 161 H CK-MB (CK-2) 2.69 Troponin I 0.028 NT-Pro-B Natriuret Pep 09/29/18 09/29/18 09/30/18 18:59 18:59 00:59 Creatine Kinase 201 H 197 H CK-MB (CK-2) 3.45 Troponin I 0.023 NT-Pro-B Natriuret Pep 09/30/18 10/01/18 10/03/18 00:59 04:13 04:50 Creatine Kinase CK-MB (CK-2) 2.94 Troponin I 0.021 NT-Pro-B Natriuret Pep 2270 H 3170 H 10/09/18 04:50 Creatine Kinase CK-MB (CK-2) Troponin I NT-Pro-B Natriuret Pep 630 Impressions: Head CT 10/03/18 00:00 IMPRESSION: CHRONIC CHANGES OF ATROPHY AND MICROVASCULAR ISCHEMIA. NO ACUTE PROCESS. EVIDENCE OF ACUTE STROKE: NO. KUB X-Ray 10/05/18 00:00 IMPRESSION: Nasogastric tube tip and side port in the stomach Assessment & Plan - Diagnosis (1) Septic shock Is this a current diagnosis for this admission?: Yes Plan: Continues antibiotics and norepinepherine (2) DIC (disseminated intravascular coagulation) Is this a current diagnosis for this admission?: Yes Plan: Her PLT count is a bit lower today, but her coags are stable. No significant change. I see no indication for transfusions today. (3) Metabolic encephalopathy Is this a current diagnosis for this admission?: Yes (4) Thrombocytopenia Is this a current diagnosis for this admission?: Yes Plan: WBC and HGB remain stable. PLT a bit lower today. Continue current treatment. No evidence of bleeding.
--- NOTE | 2018-10-20 08:25 | RADIOLOGY REPORT (SQ) ---
EXAM DESCRIPTION: CHEST SINGLE VIEW COMPLETED DATE/TIME: 10/20/2018 6:17 am REASON FOR STUDY: pneumonia COMPARISON: Multiple since 09/29/2018 EXAM PARAMETERS: NUMBER OF VIEWS: One view. TECHNIQUE: Single frontal radiographic view of the chest acquired. RADIATION DOSE: NA LIMITATIONS: None. FINDINGS: LUNGS AND PLEURA: Minimal right lateral costophrenic sulcus pleural thickening is present, new compared to 09/29/2018. This is similar compared to 10/19/2018. Chronic appearing volume loss and scarring at the right apex hemithorax is unchanged from 09/29/2018. Left lung is well inflated with pulmonary vascular congestion and mild perihilar airspace disease, ed kevin versus pneumonia. This is stable compared to 10/19/2018. No left pleural effusion. No right or left pneumothorax. MEDIASTINUM AND HILAR STRUCTURES: Fullness of the right and left hilum unchanged. HEART AND VASCULAR STRUCTURES: No cardiomegaly BONES: No acute fracture HARDWARE: Endotracheal tube tip 2 cm above the jana. Nasogastric tube tip and sideport in the stom ach. Right jugular central line tip superior vena cava. OTHER: No other significant finding. IMPRESSION: Stable appearance compared to yesterday. TECHNICAL DOCUMENTATION: JOB ID: [id number] [employer]- All Rights Reserved Reading location - IP/workstation name: [email or web address]
[2018-10-20] MEDS: NORMAL SALINE 250 ML with FUROSEMIDE 250 MG IV PRN ×4 (08:52→21:07)
[2018-10-20] MEDS: NORMAL SALINE 1000 ML 1,000 ML with POTASSIUM CHLORIDE 20 MEQ, MAGNESIUM SULFATE 8 MEQ,... IV SCH ×4 (08:56)
[2018-10-20] MEDS: NYSTATIN TOPICAL POWDER 15 GM TP SCH ×2 (12:52→19:00)
[2018-10-20] MEDS: SODIUM BICARBONATE 650 MG TABLET PO SCH ×2 (12:52→21:06)
[2018-10-20] MEDS: THIAMINE HCL 100 MG TABLET NG SCH (12:52)
[2018-10-20] MEDS: PROPOFOL 1,000 MG/100 ML INFUS..BTL IV PRN (13:04)
[2018-10-20] MEDS: DEXTROSE 5%-WATER 250 ML with NOREPINEPHRINE BITARTRATE 4 MG IV PRN ×2 (15:16)
--- NOTE | 2018-10-20 19:01 | PDOC PROGRESS REPORT ---
Subjective Progress Note for:: 10/20/18 Subjective:: Patient seen by the bedside, sedated on mechanical ventilation Reason For Visit: SEPSIS, UTI, AMS, ACUTE KIDNEY INJURY, DELIRIUM Physical Exam Vital Signs: Temp Pulse Resp BP Pulse Ox 97.5 F 102 H 22 H 105/75 100 10/20/18 18:46 10/20/18 18:00 10/20/18 18:46 10/20/18 18:46 10/20/18 18:46 Intake & Output 10/19/18 10/20/18 10/21/18 06:59 06:59 06:59 Intake Total 2571 3167 458 Output Total 1816 3100 55792 Balance 756 67 35437 Weight 93.5 kg 92.8 kg Eye exam: PRESENT: PERRLA Respiratory exam: PRESENT: rhonchi Cardiovascular exam: PRESENT: +S1, +S2 GI/Abdominal exam: PRESENT: soft Results Laboratory Results: 10/20/18 03:41 10/20/18 03:41 10/20/18 10/20/18 10/20/18 03:41 03:41 06:15 WBC 15.2 H RBC 2.88 L Hgb 9.2 L Hct 27.7 L MCV 96 MCH 32.1 MCHC 33.3 RDW 24.9 H Plt Count 57 L Seg Neutrophils % 72.7 Lymphocytes % 11.1 L Monocytes % 8.5 Eosinophils % 6.8 H Basophils % 0.9 Absolute Neutrophils 11.1 H Absolute Lymphocytes 1.7 Absolute Monocytes 1.3 Absolute Eosinophils 1.0 H Absolute Basophils 0.1 Carbonic Acid Cancelled HCO3/H2CO3 Ratio Cancelled ABG pH Cancelled ABG pCO2 Cancelled ABG pO2 Cancelled ABG HCO3 Cancelled ABG O2 Saturation Cancelled ABG Base Excess Cancelled FiO2 Cancelled Sodium 142.0 Potassium 3.4 L Chloride 111 H Carbon Dioxide 20 L Anion Gap 11 BUN 11 Creatinine 3.01 H Est GFR ( Amer) 20 L Est GFR (Non-Af Amer) 16 L Glucose 109 Calcium 9.8 Magnesium 2.1 10/20/18 06:54 WBC RBC Hgb Hct MCV MCH MCHC RDW Plt Count Seg Neutrophils % Lymphocytes % Monocytes % Eosinophils % Basophils % Absolute Neutrophils Absolute Lymphocytes Absolute Monocytes Absolute Eosinophils Absolute Basophils Carbonic Acid 0.84 L HCO3/H2CO3 Ratio 25:1 ABG pH 7.51 H ABG pCO2 27.8 L ABG pO2 72.6 L ABG HCO3 21.7 ABG O2 Saturation 96.1 ABG Base Excess -0.6 FiO2 35% Sodium Potassium Chloride Carbon Dioxide Anion Gap BUN Creatinine Est GFR ( Amer) Est GFR (Non-Af Amer) Glucose Calcium Magnesium 09/29/18 09/29/18 09/29/18 10:44 10:44 12:59 Creatine Kinase Cancelled CK-MB (CK-2) Troponin I Cancelled 0.028 NT-Pro-B Natriuret Pep 09/29/18 09/29/18 09/29/18 12:59 15:30 15:30 Creatine Kinase 77 161 H CK-MB (CK-2) 2.69 Troponin I 0.028 NT-Pro-B Natriuret Pep 09/29/18 09/29/18 09/30/18 18:59 18:59 00:59 Creatine Kinase 201 H 197 H CK-MB (CK-2) 3.45 Troponin I 0.023 NT-Pro-B Natriuret Pep 09/30/18 10/01/18 10/03/18 00:59 04:13 04:50 Creatine Kinase CK-MB (CK-2) 2.94 Troponin I 0.021 NT-Pro-B Natriuret Pep 2270 H 3170 H 10/09/18 04:50 Creatine Kinase CK-MB (CK-2) Troponin I NT-Pro-B Natriuret Pep 630 Impressions: Head CT 10/03/18 00:00 IMPRESSION: CHRONIC CHANGES OF ATROPHY AND MICROVASCULAR ISCHEMIA. NO ACUTE PROCESS. EVIDENCE OF ACUTE STROKE: NO. KUB X-Ray 10/05/18 00:00 IMPRESSION: Nasogastric tube tip and side port in the stomach Chest X-Ray 10/20/18 07:00 IMPRESSION: Stable appearance compared to yesterday. Assessment & Plan - Diagnosis (1) Septic shock Is this a current diagnosis for this admission?: Yes Plan: Patient still on intravenous norepinephrine (2) UTI (urinary tract infection) Qualifiers: Urinary tract infection type: site unspecified Hematuria presence: with hematuria Qualified Code(s): N39.0 - Urinary tract infection, site not specified; R31.9 - Hematuria, unspecified Is this a current diagnosis for this admission?: Yes (3) Hypokalemia Is this a current diagnosis for this admission?: Yes (4) Hypomagnesemia Is this a current diagnosis for this admission?: Yes (5) Alcohol abuse Is this a current diagnosis for this admission?: Yes (6) Metabolic encephalopathy Is this a current diagnosis for this admission?: Yes (7) Hyperammonemia Is this a current diagnosis for this admission?: Yes (8) Alcohol withdrawal Qualifiers: Complication of substance-induced condition: with delirium Qualified Code(s): F10.231 - Alcohol dependence with withdrawal delirium Is this a current diagnosis for this admission?: Yes (9) Respiratory failure with hypoxia and hypercapnia Qualifiers: Chronicity: acute Qualified Code(s): J96.01 - Acute respiratory failure with hypoxia; J96.02 - Acute respiratory failure with hypercapnia Is this a current diagnosis for this admission?: Yes Plan: Patient on weaning trials today (10) Nosocomial pneumonia Is this a current diagnosis for this admission?: Yes (11) Hypotension Qualifiers: Hypotension type: unspecified hypotension type Qualified Code(s): I95.9 - Hypotension, unspecified Is this a current diagnosis for this admission?: Yes (12) Gastroparesis Is this a current diagnosis for this admission?: Yes (13) Acute kidney injury Is this a current diagnosis for this admission?: Yes (14) DIC (disseminated intravascular coagulation) Is this a current diagnosis for this admission?: Yes
[2018-10-20] MEDS: FLUCONAZOLE 200 MG/NS RTU 200 MG/100 ML RTUPB IV SCH (21:06)
[2018-10-20] MEDS: ERTAPENEM SODIUM 1 GM in NORMAL SALINE 50 ML IV SCH (21:07)
[2018-10-21] MEDS: INSULIN LISPRO 100 UNIT/ML 3 ML VIAL SUBCUT SCH ×5 (00:01→23:58)
[2018-10-21] MEDS: PROPOFOL 1,000 MG/100 ML INFUS..BTL IV PRN (04:28)
[2018-10-21 05:28] LABS: ARTERIAL BLOOD BASE EXCESS -1.2 mmol/L; ARTERIAL BLOOD H2CO3 0.82 mmol/L (1.05-1.35); ARTERIAL BLOOD HCO3 21.1 mmol/L (20-24); ARTERIAL BLOOD O2 SATURATION 95.9 % (94-98); ARTERIAL BLOOD PCO2 27.4 mmHg (35-45); ARTERIAL BLOOD PH 7.51 (7.35-7.45); ARTERIAL BLOOD PO2 71.6 mmHg (80-100)
[2018-10-21 05:29] LABS: ARTERIAL BLOOD FIO2 35%
[2018-10-21 05:35] LABS: INTERNATIONAL RATION (INR) 1.42; PROTHROMBIN TIME 18.1 SEC (11.4-15.4)
[2018-10-21 05:36] LABS: FIBRINOGEN 202 mg/dL (209-497); PARTIAL THROMBOPLASTIN TIME 44.5 SEC (23.5-35.8)
[2018-10-21] MEDS: PANTOPRAZOLE SODIUM 40 MG VIAL IV SCH ×2 (05:46→17:34)
[2018-10-21 05:47] LABS: ABSOLUTE BASOPHILS # (AUTO) 0.1 10^3/uL (0.0-0.2); ABSOLUTE LYMPHOCYTES (AUTO) 1.8 10^3/uL (0.5-4.7); ABSOLUTE NEUT (AUTO) 9.7 10^3/uL (1.7-8.2); BASOPHILS % (AUTO) 0.4 % (0-2); EOSINOPHILS % (AUTO) 7.7 % (0-6); HEMATOCRIT 26.4 % (36.0-47.0); HEMOGLOBIN 8.9 g/dL (12.0-15.5); LYMPHOCYTES % (AUTO) 12.9 % (13-45); MEAN CORPUSCULAR HEMOGLOBIN 32.6 pg (27.0-33.4); MEAN CORPUSCULAR HGB CONC 33.8 g/dL (32.0-36.0); MEAN CORPUSCULAR VOLUME 97 fl (80-97); MONOCYTES % (AUTO) 7.7 % (3-13); RED BLOOD COUNT 2.74 10^6/uL (3.72-5.28); RED CELL DISTRIBUTION WIDTH 24.7 % (11.5-14.0); SEGMENTED NEUTROPHILS % (AUTO) 71.3 % (42-78); TOTAL CELLS COUNTED % (AUTO) 100 %; WHITE BLOOD COUNT 13.6 10^3/uL (4.0-10.5)
[2018-10-21] MEDS: METOCLOPRAMIDE HCL INJ/PF 10 MG/2 ML SDV IV SCH ×3 (05:47→21:14)
[2018-10-21 05:48] LABS: ANION GAP 9 (5-19); BLOOD UREA NITROGEN 11 mg/dL (7-20); CALCIUM 9.8 mg/dL (8.4-10.2); CARBON DIOXIDE 20 mmol/L (22-30); CHLORIDE 113 mmol/L (98-107); GLUCOSE 109 mg/dL (75-110); POTASSIUM 3.7 mmol/L (3.6-5.0); SODIUM 142.2 mmol/L (137-145)
[2018-10-21 06:59] LABS: PLATELET COUNT 68 10^3/uL (150-450)
[2018-10-21 07:02] LABS: ANISOCYTOSIS 3+; HYPOCHROMASIA SLIGHT; POIKILOCYTOSIS 1+; POLYCHROMASIA SLIGHT; SPHEROCYTES 1+
[2018-10-21 07:10] LABS: PLATELET COMMENT ADEQUATE
--- NOTE | 2018-10-21 08:17 | RADIOLOGY REPORT (SQ) ---
EXAM DESCRIPTION: CHEST SINGLE VIEW COMPLETED DATE/TIME: 10/21/2018 7:11 am REASON FOR STUDY: pneumonia COMPARISON: 10/20/2018 NUMBER OF VIEWS: One view. TECHNIQUE: Single frontal radiographic image of the chest acquired. LIMITATIONS: None. FINDINGS: LUNGS AND PLEURA: Stable appearance. MEDIASTINUM AND HILAR STRUCTURES: Stable heart size and mediastinal structures. HEART AND VASCULAR STRUCTURES: Stable appearance. SUPPORT DEVICES: Endotracheal tube has been slightly withdrawn. Tip lies 2.7 cm above the jana. C entral line and NG tube appear grossly unchanged. BONES: No acute findings. OTHER: No other significant finding. IMPRESSION: Repositioning of the endotracheal tube which lies 2.7 cm above the jana. No other int erval change. TECHNICAL DOCUMENTATION: JOB ID: [id number] [employer]- All Rights Reserved Reading location - IP/workstation name: [email or web address]
[2018-10-21] MEDS: SODIUM BICARBONATE 650 MG TABLET PO SCH ×2 (09:43→21:13)
[2018-10-21] MEDS: DEXTROSE 5%-WATER 250 ML with NOREPINEPHRINE BITARTRATE 4 MG IV PRN ×4 (09:44→19:30)
[2018-10-21] MEDS: THIAMINE HCL 100 MG TABLET NG SCH (09:44)
[2018-10-21] MEDS: NORMAL SALINE 1000 ML 1,000 ML with POTASSIUM CHLORIDE 20 MEQ, MAGNESIUM SULFATE 8 MEQ,... IV SCH ×4 (09:44)
[2018-10-21] MEDS: NYSTATIN TOPICAL POWDER 15 GM TP SCH ×2 (09:46→17:35)
--- NOTE | 2018-10-21 11:12 | PDOC PROGRESS REPORT ---
Subjective Progress Note for:: 10/21/18 Reason For Visit: Patient seen in the ICU today. She remains intubated and sedated. Still currently on Levophed only as one pressor agent. She is on antibiotics and IV Lasix. Blood pressure is in the low 100 systolics. Discussions were done with the treating ICU nurse. She sill remains anasarcous. Labs and medications were reviewed. Physical Exam Vital Signs: Temp Pulse Resp BP Pulse Ox 98.4 F 105 H 14 101/74 97 10/21/18 08:00 10/21/18 10:00 10/21/18 10:00 10/21/18 10:00 10/21/18 10:00 Intake & Output 10/20/18 10/21/18 10/22/18 06:59 06:59 06:59 Intake Total 3267 2004 260 Output Total 3100 44307 250 Balance 212 -0829 10 Weight 92.8 kg 93.1 kg Exam: Remains intubated and sedated. However she is slightly more awake as being plan chino to be weaned. Respiratory exam: PRESENT: clear to auscultation dawna, rhonchi - Few scattered.. ABSENT: crackles Cardiovascular exam: PRESENT: +S1, +S2, systolic murmur GI/Abdominal exam: PRESENT: normal bowel sounds, soft. ABSENT: organomegaly, tenderness Extremities exam: PRESENT: +1 edema - as part of generalized anasarca. Skin exam: ABSENT: cyanosis, erythema, mottled Results Laboratory Results: 10/21/18 05:15 10/21/18 05:15 10/21/18 10/21/18 10/21/18 05:15 05:15 05:15 WBC 13.6 H RBC 2.74 L Hgb 8.9 L Hct 26.4 L MCV 97 MCH 32.6 MCHC 33.8 RDW 24.7 H Plt Count 68 L Seg Neutrophils % 71.3 Lymphocytes % 12.9 L Monocytes % 7.7 Eosinophils % 7.7 H Basophils % 0.4 Absolute Neutrophils 9.7 H Absolute Lymphocytes 1.8 Absolute Monocytes 1.0 Absolute Eosinophils 1.0 H Absolute Basophils 0.1 Carbonic Acid 0.82 L HCO3/H2CO3 Ratio 25:1 ABG pH 7.51 H ABG pCO2 27.4 L ABG pO2 71.6 L ABG HCO3 21.1 ABG O2 Saturation 95.9 ABG Base Excess -1.2 FiO2 35% Sodium 142.2 Potassium 3.7 Chloride 113 H Carbon Dioxide 20 L Anion Gap 9 BUN 11 Creatinine 3.26 H Est GFR ( Amer) 18 L Est GFR (Non-Af Amer) 15 L Glucose 109 Calcium 9.8 Magnesium 2.1 09/29/18 09/29/18 09/29/18 10:44 10:44 12:59 Creatine Kinase Cancelled CK-MB (CK-2) Troponin I Cancelled 0.028 NT-Pro-B Natriuret Pep 09/29/18 09/29/18 09/29/18 12:59 15:30 15:30 Creatine Kinase 77 161 H CK-MB (CK-2) 2.69 Troponin I 0.028 NT-Pro-B Natriuret Pep 09/29/18 09/29/18 09/30/18 18:59 18:59 00:59 Creatine Kinase 201 H 197 H CK-MB (CK-2) 3.45 Troponin I 0.023 NT-Pro-B Natriuret Pep 09/30/18 10/01/18 10/03/18 00:59 04:13 04:50 Creatine Kinase CK-MB (CK-2) 2.94 Troponin I 0.021 NT-Pro-B Natriuret Pep 2270 H 3170 H 10/09/18 04:50 Creatine Kinase CK-MB (CK-2) Troponin I NT-Pro-B Natriuret Pep 630 Impressions: Head CT 10/03/18 00:00 IMPRESSION: CHRONIC CHANGES OF ATROPHY AND MICROVASCULAR ISCHEMIA. NO ACUTE PROCESS. EVIDENCE OF ACUTE STROKE: NO. KUB X-Ray 10/05/18 00:00 IMPRESSION: Nasogastric tube tip and side port in the stomach Chest X-Ray 10/21/18 07:00 IMPRESSION: Repositioning of the endotracheal tube which lies 2.7 cm above the jana. No other interval change. Assessment & Plan - Diagnosis (1) Acute kidney injury Is this a current diagnosis for this admission?: Yes Plan: Currently nonoliguric. She was initiated on hemodialysis last week because of drop in urine output as well as severe metabolic acidosis in the face of severe lactic acidosis. Last dialysis was on with limited fluid removal which was the main goal. We will try to dialyze her again today with the same i ntentions.Orders have been placed. Will start her on albumin infusion and adjust/titrate Levophed accordingly so that they can help remove at least 2 L of fluid which will help however the weaning and extubation. (2) Acute encephalopathy Plan: In the setting of septic shock from UTI and possible alcohol withdrawal. Currently intubated and sedated. (3) Alcohol withdrawal Qualifiers: Complication of substance-induced condition: with delirium Qualified Code(s): F10.231 - Alcohol dependence with withdrawal delirium Is this a current diagnosis for this admission?: Yes Plan: On appropriate medications. (4) DIC (disseminated intravascular coagulation) Is this a current diagnosis for this admission?: Yes Plan: Heme oncologist on board. (5) Lactic acidosis Is this a current diagnosis for this admission?: Yes Plan: Much better with initiation of hemodialysis and treatment of septic shock. (6) Respiratory failure Is this a current diagnosis for this admission?: Yes Plan: Currently intubated and sedated. (7) Septic shock Is this a current diagnosis for this admission?: Yes Plan: On pressors and relatively stable. She has been weaned down from 3 to just 1 pressor. Now producing more urine. (8) UTI (urinary tract infection) Qualifiers: Urinary tract infection type: site unspecified Hematuria presence: with hematuria Qualified Code(s): N39.0 - Urinary tract infection, site not specified; R31.9 - Hematuria, unspecified Is this a current diagnosis for this admission?: Yes Plan: Was given antibiotics in the early phase. Currently now growing fungal elements and is on Diflucan. (9) Anemia Qualifiers: Anemia type: unspecified type Qualified Code(s): D64.9 - Anemia, unspecified Is this a current diagnosis for this admission?: Yes Plan: In the face of septic shock and DIC. (10) Metabolic acidosis Is this a current diagnosis for this admission?: Yes Plan: Stable with ongoing dialysis as well as replacements.Monitor.
[2018-10-21] MEDS: ALBUMIN HUMAN 12.5 GM/50 ML RTUINJ IV SCH ×2 (11:50→17:34)
[2018-10-21] MEDS: NORMAL SALINE 250 ML with FUROSEMIDE 250 MG IV PRN ×2 (11:51)
[2018-10-21] MEDS ORDERED: EPOETIN ALFA INJ 20000 UNIT/1 ML VIAL (RENAL) IV PRN (12:01)
--- NOTE | 2018-10-21 21:02 | PDOC PROGRESS REPORT ---
Subjective Progress Note for:: 10/21/18 Subjective:: Patient sedated, weaning trials initiated, was hemodialyzed today Reason For Visit: SEPSIS, UTI, AMS, ACUTE KIDNEY INJURY, DELIRIUM Physical Exam Vital Signs: Temp Pulse Resp BP Pulse Ox 97.5 F 101 H 20 101/70 98 10/21/18 18:18 10/21/18 18:00 10/21/18 18:18 10/21/18 18:18 10/21/18 18:18 Intake & Output 10/20/18 10/21/18 10/22/18 06:59 06:59 06:59 Intake Total 3267 2003 1010 Output Total 3105 78782 1414 Balance 014 -0646 -276 Weight 92.8 kg 93.1 kg General appearance: PRESENT: no acute distress Eye exam: PRESENT: PERRLA Respiratory exam: PRESENT: rhonchi Cardiovascular exam: PRESENT: +S1, +S2 GI/Abdominal exam: PRESENT: soft Results Laboratory Results: 10/21/18 05:15 10/21/18 05:15 10/21/18 10/21/18 10/21/18 05:15 05:15 05:15 WBC 13.6 H RBC 2.74 L Hgb 8.9 L Hct 26.4 L MCV 97 MCH 32.6 MCHC 33.8 RDW 24.7 H Plt Count 68 L Seg Neutrophils % 71.3 Lymphocytes % 12.9 L Monocytes % 7.7 Eosinophils % 7.7 H Basophils % 0.4 Absolute Neutrophils 9.7 H Absolute Lymphocytes 1.8 Absolute Monocytes 1.0 Absolute Eosinophils 1.0 H Absolute Basophils 0.1 Carbonic Acid 0.82 L HCO3/H2CO3 Ratio 25:1 ABG pH 7.51 H ABG pCO2 27.4 L ABG pO2 71.6 L ABG HCO3 21.1 ABG O2 Saturation 95.9 ABG Base Excess -1.2 FiO2 35% Sodium 142.2 Potassium 3.7 Chloride 113 H Carbon Dioxide 20 L Anion Gap 9 BUN 11 Creatinine 3.26 H Est GFR ( Amer) 18 L Est GFR (Non-Af Amer) 15 L Glucose 109 Calcium 9.8 Magnesium 2.1 09/29/18 09/29/18 09/29/18 10:44 10:44 12:59 Creatine Kinase Cancelled CK-MB (CK-2) Troponin I Cancelled 0.028 NT-Pro-B Natriuret Pep 09/29/18 09/29/18 09/29/18 12:59 15:30 15:30 Creatine Kinase 77 161 H CK-MB (CK-2) 2.69 Troponin I 0.028 NT-Pro-B Natriuret Pep 09/29/18 09/29/18 09/30/18 18:59 18:59 00:59 Creatine Kinase 201 H 197 H CK-MB (CK-2) 3.45 Troponin I 0.023 NT-Pro-B Natriuret Pep 09/30/18 10/01/18 10/03/18 00:59 04:13 04:50 Creatine Kinase CK-MB (CK-2) 2.94 Troponin I 0.021 NT-Pro-B Natriuret Pep 2270 H 3170 H 10/09/18 04:50 Creatine Kinase CK-MB (CK-2) Troponin I NT-Pro-B Natriuret Pep 630 Impressions: Head CT 10/03/18 00:00 IMPRESSION: CHRONIC CHANGES OF ATROPHY AND MICROVASCULAR ISCHEMIA. NO ACUTE PROCESS. EVIDENCE OF ACUTE STROKE: NO. KUB X-Ray 10/05/18 00:00 IMPRESSION: Nasogastric tube tip and side port in the stomach Chest X-Ray 10/21/18 07:00 IMPRESSION: Repositioning of the endotracheal tube which lies 2.7 cm above the jana. No other interval change. Assessment & Plan - Diagnosis (1) Septic shock Is this a current diagnosis for this admission?: Yes Plan: Continue antibiotic (2) UTI (urinary tract infection) Qualifiers: Urinary tract infection type: site unspecified Hematuria presence: with hematuria Qualified Code(s): N39.0 - Urinary tract infection, site not specified; R31.9 - Hematuria, unspecified Is this a current diagnosis for this admission?: Yes (3) Hypokalemia Is this a current diagnosis for this admission?: Yes (4) Hypomagnesemia Is this a current diagnosis for this admission?: Yes (5) Alcohol abuse Is this a current diagnosis for this admission?: Yes (6) Metabolic encephalopathy Is this a current diagnosis for this admission?: Yes (7) Hyperammonemia Is this a current diagnosis for this admission?: Yes (8) Alcohol withdrawal Qualifiers: Complication of substance-induced condition: with delirium Qualified Code(s): F10.231 - Alcohol dependence with withdrawal delirium Is this a current diagnosis for this admission?: Yes (9) Respiratory failure with hypoxia and hypercapnia Qualifiers: Chronicity: acute Qualified Code(s): J96.01 - Acute respiratory failure with hypoxia; J96.02 - Acute respiratory failure with hypercapnia Is this a current diagnosis for this admission?: Yes (10) Nosocomial pneumonia Is this a current diagnosis for this admission?: Yes (11) Hypotension Qualifiers: Hypotension type: unspecified hypotension type Qualified Code(s): I95.9 - Hypotension, unspecified Is this a current diagnosis for this admission?: Yes (12) Gastroparesis Is this a current diagnosis for this admission?: Yes (13) Acute kidney injury Is this a current diagnosis for this admission?: Yes (14) DIC (disseminated intravascular coagulation) Is this a current diagnosis for this admission?: Yes
[2018-10-21] MEDS: FLUCONAZOLE 200 MG/NS RTU 200 MG/100 ML RTUPB IV SCH (21:14)
[2018-10-21] MEDS: ERTAPENEM SODIUM 1 GM in NORMAL SALINE 50 ML IV SCH (22:23)
[2018-10-22] MEDS: ALBUMIN HUMAN 12.5 GM/50 ML RTUINJ IV SCH ×4 (00:08→17:47)
[2018-10-22] MEDS: NORMAL SALINE 250 ML with FUROSEMIDE 250 MG IV PRN ×4 (00:13→14:20)
[2018-10-22] MEDS: PROPOFOL 1,000 MG/100 ML INFUS..BTL IV PRN (00:53)
[2018-10-22 03:44] LABS: ARTERIAL BLOOD BASE EXCESS 1.2 mmol/L; ARTERIAL BLOOD H2CO3 0.86 mmol/L (1.05-1.35); ARTERIAL BLOOD HCO3 23.4 mmol/L (20-24); ARTERIAL BLOOD O2 SATURATION 94.4 % (94-98); ARTERIAL BLOOD PCO2 28.5 mmHg (35-45); ARTERIAL BLOOD PH 7.53 (7.35-7.45); ARTERIAL BLOOD PO2 61.9 mmHg (80-100); ARTERIAL BLOOD TOTAL CO2 24.3 mmol/L (21-25)
[2018-10-22 03:47] LABS: ARTERIAL BLOOD FIO2 35%
[2018-10-22 03:48] LABS: ABSOLUTE BASOPHILS # (AUTO) 0.1 10^3/uL (0.0-0.2); ABSOLUTE EOSINOPHILS # (AUTO) 0.8 10^3/uL (0.0-0.6); ABSOLUTE LYMPHOCYTES (AUTO) 1.6 10^3/uL (0.5-4.7); ABSOLUTE NEUT (AUTO) 11.4 10^3/uL (1.7-8.2); BASOPHILS % (AUTO) 0.4 % (0-2); EOSINOPHILS % (AUTO) 5.7 % (0-6); HEMATOCRIT 24.3 % (36.0-47.0); HEMOGLOBIN 8.1 g/dL (12.0-15.5); LYMPHOCYTES % (AUTO) 10.6 % (13-45); MEAN CORPUSCULAR HEMOGLOBIN 32.5 pg (27.0-33.4); MEAN CORPUSCULAR HGB CONC 33.6 g/dL (32.0-36.0); MEAN CORPUSCULAR VOLUME 97 fl (80-97); MONOCYTES % (AUTO) 6.7 % (3-13); SEGMENTED NEUTROPHILS % (AUTO) 76.6 % (42-78); TOTAL CELLS COUNTED % (AUTO) 100 %; WHITE BLOOD COUNT 14.9 10^3/uL (4.0-10.5)
[2018-10-22 03:52] LABS: ANION GAP 9 (5-19); BLOOD UREA NITROGEN 9 mg/dL (7-20); CALCIUM 9.7 mg/dL (8.4-10.2); CARBON DIOXIDE 23 mmol/L (22-30); CHLORIDE 110 mmol/L (98-107); GLUCOSE 91 mg/dL (75-110); POTASSIUM 3.6 mmol/L (3.6-5.0); SODIUM 142.4 mmol/L (137-145)
[2018-10-22 04:07] LABS: PLATELET COUNT 61 10^3/uL (150-450)
[2018-10-22 04:08] LABS: RED CELL DISTRIBUTION WIDTH 24.7 % (11.5-14.0)
[2018-10-22] MEDS: METOCLOPRAMIDE HCL INJ/PF 10 MG/2 ML SDV IV SCH ×3 (05:43→21:50)
[2018-10-22] MEDS: PANTOPRAZOLE SODIUM 40 MG VIAL IV SCH (05:43)
[2018-10-22] MEDS: INSULIN LISPRO 100 UNIT/ML 3 ML VIAL SUBCUT SCH ×4 (05:44→23:16)
--- NOTE | 2018-10-22 07:07 | RADIOLOGY REPORT (SQ) ---
EXAM DESCRIPTION: XR CHEST 1 VIEW COMPLETED DATE/TME: 10/22/2018 06:00 CLINICAL HISTORY: 53 years, Female, pna COMPARISON: 10/21/2018 chest NUMBER OF VIEWS: 1 TECHNIQUE: Portable chest LIMITATIONS: None. FINDINGS: Heart size is normal. Stable indwelling lines and catheters. Stable opacity in the right lung apex. Tiny right effusion and/or pleural thickening. Osteopenia. No discrete pneumothorax IMPRESSION: Little interval change copyright 2010 [employer]- All Rights Reserved
[2018-10-22] MEDS: NORMAL SALINE 1000 ML 1,000 ML with POTASSIUM CHLORIDE 20 MEQ, MAGNESIUM SULFATE 8 MEQ,... IV SCH ×4 (09:17)
[2018-10-22] MEDS: SODIUM BICARBONATE 650 MG TABLET PO SCH ×2 (09:17→21:49)
[2018-10-22] MEDS: THIAMINE HCL 100 MG TABLET NG SCH (09:17)
[2018-10-22] MEDS: NYSTATIN TOPICAL POWDER 15 GM TP SCH ×2 (09:18→17:45)
[2018-10-22] MEDS ORDERED: NORMAL SALINE 250 ML IV PRN (10:54)
[2018-10-22] MEDS: DEXTROSE 5%-WATER 250 ML with NOREPINEPHRINE BITARTRATE 4 MG IV PRN ×2 (14:55)
[2018-10-22] MEDS: DEXTROSE 5%-WATER 250 ML with PHENYLEPHRINE HCL 40 MG IV PRN ×2 (16:04)
--- NOTE | 2018-10-22 18:20 | PDOC PROGRESS REPORT ---
Subjective Progress Note for:: 10/22/18 Subjective:: Patient was extubated today no more requiring mechanical ventilation, she is still somewhat drowsy, she does respond to painful stimulus on facemask Reason For Visit: SEPSIS, UTI, AMS, ACUTE KIDNEY INJURY, DELIRIUM Physical Exam Vital Signs: Temp Pulse Resp BP Pulse Ox 96.1 F L 103 H 16 99/66 L 90 L 10/22/18 18:02 10/22/18 16:00 10/22/18 18:02 10/22/18 18:02 10/22/18 18:02 Intake & Output 10/21/18 10/22/18 10/23/18 06:59 06:59 06:59 Intake Total 2003 2614 961 Output Total 17741 1885 605 Balance -9236 729 356 Weight 93.1 kg 91 kg General appearance: PRESENT: no acute distress Eye exam: PRESENT: PERRLA Respiratory exam: PRESENT: clear to auscultation dawna Cardiovascular exam: PRESENT: +S1, +S2 GI/Abdominal exam: PRESENT: soft Neurological exam: PRESENT: alert Results Laboratory Results: 10/22/18 03:31 10/22/18 03:31 10/22/18 10/22/18 10/22/18 03:31 03:31 03:31 WBC 14.9 H RBC 2.50 L Hgb 8.1 L Hct 24.3 L MCV 97 MCH 32.5 MCHC 33.6 RDW 24.7 H Plt Count 61 L Seg Neutrophils % 76.6 Lymphocytes % 10.6 L Monocytes % 6.7 Eosinophils % 5.7 Basophils % 0.4 Absolute Neutrophils 11.4 H Absolute Lymphocytes 1.6 Absolute Monocytes 1.0 Absolute Eosinophils 0.8 H Absolute Basophils 0.1 Carbonic Acid 0.86 L HCO3/H2CO3 Ratio 27:1 ABG pH 7.53 H ABG pCO2 28.5 L ABG pO2 61.9 L ABG HCO3 23.4 ABG O2 Saturation 94.4 ABG Base Excess 1.2 FiO2 35% Sodium 142.4 Potassium 3.6 Chloride 110 H Carbon Dioxide 23 Anion Gap 9 BUN 9 Creatinine 2.61 H Est GFR ( Amer) 23 L Est GFR (Non-Af Amer) 19 L Glucose 91 Calcium 9.7 Magnesium 2.1 Blood Type 10/22/18 11:25 WBC RBC Hgb Hct MCV MCH MCHC RDW Plt Count Seg Neutrophils % Lymphocytes % Monocytes % Eosinophils % Basophils % Absolute Neutrophils Absolute Lymphocytes Absolute Monocytes Absolute Eosinophils Absolute Basophils Carbonic Acid HCO3/H2CO3 Ratio ABG pH ABG pCO2 ABG pO2 ABG HCO3 ABG O2 Saturation ABG Base Excess FiO2 Sodium Potassium Chloride Carbon Dioxide Anion Gap BUN Creatinine Est GFR ( Amer) Est GFR (Non-Af Amer) Glucose Calcium Magnesium Blood Type B POSITIVE 09/29/18 09/29/18 09/29/18 10:44 10:44 12:59 Creatine Kinase Cancelled CK-MB (CK-2) Troponin I Cancelled 0.028 NT-Pro-B Natriuret Pep 09/29/18 09/29/18 09/29/18 12:59 15:30 15:30 Creatine Kinase 77 161 H CK-MB (CK-2) 2.69 Troponin I 0.028 NT-Pro-B Natriuret Pep 09/29/18 09/29/18 09/30/18 18:59 18:59 00:59 Creatine Kinase 201 H 197 H CK-MB (CK-2) 3.45 Troponin I 0.023 NT-Pro-B Natriuret Pep 09/30/18 10/01/18 10/03/18 00:59 04:13 04:50 Creatine Kinase CK-MB (CK-2) 2.94 Troponin I 0.021 NT-Pro-B Natriuret Pep 2270 H 3170 H 10/09/18 04:50 Creatine Kinase CK-MB (CK-2) Troponin I NT-Pro-B Natriuret Pep 630 Impressions: Head CT 10/03/18 00:00 IMPRESSION: CHRONIC CHANGES OF ATROPHY AND MICROVASCULAR ISCHEMIA. NO ACUTE PROCESS. EVIDENCE OF ACUTE STROKE: NO. KUB X-Ray 10/05/18 00:00 IMPRESSION: Nasogastric tube tip and side port in the stomach Chest X-Ray 10/22/18 06:00 IMPRESSION: Little interval change copyright 2011 [employer]- All Rights Reserved Assessment & Plan - Diagnosis (1) Septic shock Is this a current diagnosis for this admission?: Yes Plan: She continues to require low-dose Levophed (2) UTI (urinary tract infection) Qualifiers: Urinary tract infection type: site unspecified Hematuria presence: with hematuria Qualified Code(s): N39.0 - Urinary tract infection, site not specified; R31.9 - Hematuria, unspecified Is this a current diagnosis for this admission?: Yes (3) Hypokalemia Is this a current diagnosis for this admission?: Yes (4) Hypomagnesemia Is this a current diagnosis for this admission?: Yes (5) Alcohol abuse Is this a current diagnosis for this admission?: Yes (6) Metabolic encephalopathy Is this a current diagnosis for this admission?: Yes (7) Hyperammonemia Is this a current diagnosis for this admission?: Yes (8) Alcohol withdrawal Qualifiers: Complication of substance-induced condition: with delirium Qualified Code(s): F10.231 - Alcohol dependence with withdrawal delirium Is this a current diagnosis for this admission?: Yes (9) Respiratory failure with hypoxia and hypercapnia Qualifiers: Chronicity: acute Qualified Code(s): J96.01 - Acute respiratory failure with hypoxia; J96.02 - Acute respiratory failure with hypercapnia Is this a current diagnosis for this admission?: Yes (10) Nosocomial pneumonia Is this a current diagnosis for this admission?: Yes (11) Hypotension Qualifiers: Hypotension type: unspecified hypotension type Qualified Code(s): I95.9 - Hypotension, unspecified Is this a current diagnosis for this admission?: Yes (12) Gastroparesis Is this a current diagnosis for this admission?: Yes (13) Acute kidney injury Is this a current diagnosis for this admission?: Yes (14) DIC (disseminated intravascular coagulation) Is this a current diagnosis for this admission?: Yes
[2018-10-22] MEDS: FLUCONAZOLE 200 MG/NS RTU 200 MG/100 ML RTUPB IV SCH (21:50)
[2018-10-22] MEDS: ERTAPENEM SODIUM 1 GM in NORMAL SALINE 50 ML IV SCH (21:50)
[2018-10-23] MEDS: ALBUMIN HUMAN 12.5 GM/50 ML RTUINJ IV SCH ×3 (01:07→20:00)
[2018-10-23 04:36] LABS: ABSOLUTE BASOPHILS # (AUTO) 0.1 10^3/uL (0.0-0.2); ABSOLUTE EOSINOPHILS # (AUTO) 0.9 10^3/uL (0.0-0.6); ABSOLUTE LYMPHOCYTES (AUTO) 1.3 10^3/uL (0.5-4.7); ABSOLUTE MONOCYTES (AUTO) 0.8 10^3/uL (0.1-1.4); ABSOLUTE NEUT (AUTO) 7.7 10^3/uL (1.7-8.2); BASOPHILS % (AUTO) 0.5 % (0-2); EOSINOPHILS % (AUTO) 8.5 % (0-6); HEMATOCRIT 23.8 % (36.0-47.0); LYMPHOCYTES % (AUTO) 12.5 % (13-45); MEAN CORPUSCULAR HEMOGLOBIN 32.1 pg (27.0-33.4); MEAN CORPUSCULAR HGB CONC 32.6 g/dL (32.0-36.0); MEAN CORPUSCULAR VOLUME 99 fl (80-97); RED BLOOD COUNT 2.42 10^6/uL (3.72-5.28); RED CELL DISTRIBUTION WIDTH 24.4 % (11.5-14.0); SEGMENTED NEUTROPHILS % (AUTO) 71.5 % (42-78); TOTAL CELLS COUNTED % (AUTO) 100 %; WHITE BLOOD COUNT 10.7 10^3/uL (4.0-10.5)
[2018-10-23 04:42] LABS: FIBRINOGEN 172 mg/dL (209-497); INTERNATIONAL RATION (INR) 1.38; PARTIAL THROMBOPLASTIN TIME 46.5 SEC (23.5-35.8); PROTHROMBIN TIME 17.6 SEC (11.4-15.4)
[2018-10-23 04:46] LABS: ALANINE AMINOTRANSFERASE 18 U/L (9-52); ALBUMIN 2.8 g/dL (3.5-5.0); ALKALINE PHOSPHATASE 104 U/L (38-126); ANION GAP 12 (5-19); ASPARTATE AMINO TRANSFERASE 25 U/L (14-36); BILIRUBIN,DIRECT 1.3 mg/dL (0.0-0.4); BILIRUBIN,TOTAL 1.5 mg/dL (0.2-1.3); BLOOD UREA NITROGEN 9 mg/dL (7-20); CALCIUM 10.2 mg/dL (8.4-10.2); CARBON DIOXIDE 22 mmol/L (22-30); CHLORIDE 110 mmol/L (98-107); GLUCOSE 85 mg/dL (75-110); POTASSIUM 3.4 mmol/L (3.6-5.0); SODIUM 143.6 mmol/L (137-145)
[2018-10-23 05:13] LABS: ARTERIAL BLOOD BASE EXCESS -1.9 mmol/L; ARTERIAL BLOOD H2CO3 1.45 mmol/L (1.05-1.35); ARTERIAL BLOOD HCO3 24.2 mmol/L (20-24); ARTERIAL BLOOD O2 SATURATION 89.4 % (94-98); ARTERIAL BLOOD PCO2 48.1 mmHg (35-45); ARTERIAL BLOOD PH 7.32 (7.35-7.45); ARTERIAL BLOOD PO2 61.3 mmHg (80-100); ARTERIAL BLOOD TOTAL CO2 25.7 mmol/L (21-25)
[2018-10-23 05:16] LABS: ARTERIAL BLOOD FIO2 40%
[2018-10-23] MEDS: METOCLOPRAMIDE HCL INJ/PF 10 MG/2 ML SDV IV SCH ×3 (05:41→21:11)
[2018-10-23] MEDS: LACTOBACILLUS ACIDOPHILUS 250 MG TAB NG SCH ×2 (05:41→20:00)
[2018-10-23] MEDS: POTASSIUM CHLORIDE 20 MEQ/50 ML RTU IV SCH ×2 (05:42→07:31)
[2018-10-23] MEDS: INSULIN LISPRO 100 UNIT/ML 3 ML VIAL SUBCUT SCH ×2 (05:45→19:56)
[2018-10-23 06:17] LABS: PLATELET COUNT 60 10^3/uL (150-450)
[2018-10-23 06:18] LABS: HEMOGLOBIN 7.8 g/dL (12.0-15.5)
[2018-10-23 06:24] LABS: ANISOCYTOSIS 3+; HYPOCHROMASIA 1+; POIKILOCYTOSIS 1+
[2018-10-23 06:25] LABS: PLATELET COMMENT DECREASED; TARGET CELLS 2+
--- NOTE | 2018-10-23 07:05 | RADIOLOGY REPORT (SQ) ---
EXAM DESCRIPTION: XR CHEST 1 VIEW COMPLETED DATE/TME: 10/23/2018 06:00 CLINICAL HISTORY: 53 years, Female, resp. failure COMPARISON: 10/22/2018 chest NUMBER OF VIEWS: 1 TECHNIQUE: Portable semierect chest LIMITATIONS: None. FINDINGS: Interval extubation. Significant worsening of the right pleural effusion left atelectasis with near complete opacification of the right hemithorax. Patchy airspace opacity left lung base. No discrete pneumothorax. Central venous catheter and enteric tube remain in place. Osteopenia. IMPRESSION: Interval extubation. Significant worsening of the right pleural effusion with now near complete opacification of the right hemithorax. A component of atelectasis is also considered. Patchy airspace opacity left lung base.. copyright 2010 [employer]- All Rights Reserved
[2018-10-23] MEDS ORDERED: LEVALBUTEROL HCL NEB 1.25 MG/3 ML AMPUL NEB PRN (07:07)
[2018-10-23] MEDS: NORMAL SALINE 1000 ML 1,000 ML with POTASSIUM CHLORIDE 20 MEQ, MAGNESIUM SULFATE 8 MEQ,... IV SCH ×4 (07:32)
[2018-10-23] MEDS: NORMAL SALINE 250 ML with FUROSEMIDE 250 MG IV PRN ×4 (07:36→21:19)
[2018-10-23] MEDS: SODIUM BICARBONATE 650 MG TABLET PO SCH ×2 (07:45→21:10)
[2018-10-23] MEDS: THIAMINE HCL 100 MG TABLET NG SCH (07:45)
[2018-10-23] MEDS ORDERED: ACETYLCYSTEINE 20% SOLN 800 MG/4 ML VIAL.NEB NEB SCH (08:00)
[2018-10-23] MEDS: IPRATROPIUM/ALBUTEROL 0.5-2.5 MG/3 ML AMPUL NEB SCH ×3 (08:41→20:15)
[2018-10-23] MEDS: ACETYLCYSTEINE 20% SOLN 800 MG/4 ML VIAL.NEB NEB SCH ×2 (08:42→20:15)
[2018-10-23] MEDS ORDERED: NORMAL SALINE 250 ML IV PRN (09:36)
[2018-10-23] MEDS: NYSTATIN TOPICAL POWDER 15 GM TP SCH ×2 (10:00→20:00)
[2018-10-23] MEDS: DEXTROSE 5%-WATER 250 ML with PHENYLEPHRINE HCL 40 MG IV PRN ×2 (12:06)
--- NOTE | 2018-10-23 12:28 | PDOC PROGRESS REPORT ---
Subjective Progress Note for:: 10/23/18 Subjective:: Patient is now extubated, but remains on BiPAP. She is trying to talk, but is not following commands. She had been off pressers, but is now back on Beny. She has been in a Bear Hugger to try to improve her low temperature. No new evidence of bleeding or clotting. ROS unobtainable due to mental status. Reason For Visit: SEPSIS, UTI, AMS, ACUTE KIDNEY INJURY, DELIRIUM Physical Exam Vital Signs: Temp Pulse Resp BP Pulse Ox 97.7 F 98 15 94/71 L 95 10/23/18 12:00 10/23/18 12:00 10/23/18 12:00 10/23/18 11:54 10/23/18 12:00 Intake & Output 10/22/18 10/23/18 10/24/18 06:59 06:59 06:59 Intake Total 2614 2627 1425 Output Total 1885 980 170 Balance 729 1647 1255 Weight 91 kg 92.9 kg General appearance: PRESENT: well-developed, well-nourished Respiratory exam: PRESENT: other - BiPAP in place. upper airway noise throughout. Cardiovascular exam: PRESENT: RRR GI/Abdominal exam: PRESENT: soft, tenderness Extremities exam: PRESENT: other - TAMAR/SCDs in place.. ABSENT: pedal edema Skin exam: PRESENT: normal color Results Laboratory Results: 10/23/18 04:00 10/23/18 04:00 10/22/18 10/23/18 10/23/18 11:25 04:00 04:00 WBC 10.7 H RBC 2.42 L Hgb 7.8 L Hct 23.8 L MCV 99 H MCH 32.1 MCHC 32.6 RDW 24.4 H Plt Count 60 L Seg Neutrophils % 71.5 Lymphocytes % 12.5 L Monocytes % 7.0 Eosinophils % 8.5 H Basophils % 0.5 Absolute Neutrophils 7.7 Absolute Lymphocytes 1.3 Absolute Monocytes 0.8 Absolute Eosinophils 0.9 H Absolute Basophils 0.1 Carbonic Acid HCO3/H2CO3 Ratio ABG pH ABG pCO2 ABG pO2 ABG HCO3 ABG O2 Saturation ABG Base Excess FiO2 Sodium 143.6 Potassium 3.4 L Chloride 110 H Carbon Dioxide 22 Anion Gap 12 BUN 9 Creatinine 3.22 H Est GFR ( Amer) 18 L Est GFR (Non-Af Amer) 15 L Glucose 85 Calcium 10.2 Magnesium 2.3 Total Bilirubin 1.5 H AST 25 ALT 18 Alkaline Phosphatase 104 Total Protein 6.0 L Albumin 2.8 L Blood Type B POSITIVE Antibody Screen NEGATIVE 10/23/18 04:40 WBC RBC Hgb Hct MCV MCH MCHC RDW Plt Count Seg Neutrophils % Lymphocytes % Monocytes % Eosinophils % Basophils % Absolute Neutrophils Absolute Lymphocytes Absolute Monocytes Absolute Eosinophils Absolute Basophils Carbonic Acid 1.45 H HCO3/H2CO3 Ratio 16:1 ABG pH 7.32 L ABG pCO2 48.1 H ABG pO2 61.3 L ABG HCO3 24.2 H ABG O2 Saturation 89.4 L ABG Base Excess -1.9 FiO2 40% Sodium Potassium Chloride Carbon Dioxide Anion Gap BUN Creatinine Est GFR ( Amer) Est GFR (Non-Af Amer) Glucose Calcium Magnesium Total Bilirubin AST ALT Alkaline Phosphatase Total Protein Albumin Blood Type Antibody Screen 09/29/18 09/29/18 09/29/18 10:44 10:44 12:59 Creatine Kinase Cancelled CK-MB (CK-2) Troponin I Cancelled 0.028 NT-Pro-B Natriuret Pep 09/29/18 09/29/18 09/29/18 12:59 15:30 15:30 Creatine Kinase 77 161 H CK-MB (CK-2) 2.69 Troponin I 0.028 NT-Pro-B Natriuret Pep 09/29/18 09/29/18 09/30/18 18:59 18:59 00:59 Creatine Kinase 201 H 197 H CK-MB (CK-2) 3.45 Troponin I 0.023 NT-Pro-B Natriuret Pep 09/30/18 10/01/18 10/03/18 00:59 04:13 04:50 Creatine Kinase CK-MB (CK-2) 2.94 Troponin I 0.021 NT-Pro-B Natriuret Pep 2270 H 3170 H 10/09/18 04:50 Creatine Kinase CK-MB (CK-2) Troponin I NT-Pro-B Natriuret Pep 630 Impressions: Head CT 10/03/18 00:00 IMPRESSION: CHRONIC CHANGES OF ATROPHY AND MICROVASCULAR ISCHEMIA. NO ACUTE PROCESS. EVIDENCE OF ACUTE STROKE: NO. KUB X-Ray 10/05/18 00:00 IMPRESSION: Nasogastric tube tip and side port in the stomach Chest X-Ray 10/23/18 06:00 IMPRESSION: Interval extubation. Significant worsening of the right pleural effusion with now near complete opacification of the right hemithorax. A component of atelectasis is also considered. Patchy airspace opacity left lung base.. copyright 2011 [employer]- All Rights Reserved Assessment & Plan - Diagnosis (1) Septic shock Is this a current diagnosis for this admission?: Yes Plan: Still continues to require pressers to keep BP regulated. Initial blood cultures were negative. All bronchial cultures with yeast, some ben, some non-ben. (2) DIC (disseminated intravascular coagulation) Is this a current diagnosis for this admission?: Yes Plan: Coagulopathy continues. I will again order cryoprecipitate. Continue to monitor labs. (3) Metabolic encephalopathy Is this a current diagnosis for this admission?: Yes (4) Thrombocytopenia Is this a current diagnosis for this admission?: Yes (5) Anemia Qualifiers: Anemia type: unspecified type Qualified Code(s): D64.9 - Anemia, unspecified Is this a current diagnosis for this admission?: Yes Plan: Most likely multifactoral. I will transfuse 2 units pRBCs today and watch closely. She continues on Lasix. - Plan Summary Plan Summary: Her coagulopathy may also be partially due to underlying liver failure. She has a long history of alcohol abuse and LFTs have remained abnormal. Her ammonia levels have all been elevated. Overall prognosis remain poor. I agree with plans for Bronch to see if there is still any type of infectious process (?aspirgillosis). If no plans for bronch, then consider CT chest and abdomen. I will continue to follow with you. Please call me with any concerns or questions. Patient was discussed with Dr. Almaraz.
--- NOTE | 2018-10-23 16:36 | PDOC PROGRESS REPORT ---
Subjective Progress Note for:: 10/23/18 Subjective:: There is complete opacification of the right lung suggesting mucous plugging with right lung collapse deep tracheal suctioning is ensued, may need repeat bronchoscopy Reason For Visit: SEPSIS, UTI, AMS, ACUTE KIDNEY INJURY, DELIRIUM Physical Exam Vital Signs: Temp Pulse Resp BP Pulse Ox 97.3 F 95 17 107/80 98 10/23/18 15:30 10/23/18 15:30 10/23/18 15:30 10/23/18 15:25 10/23/18 15:30 Intake & Output 10/22/18 10/23/18 10/24/18 06:59 06:59 06:59 Intake Total 2614 2627 1604 Output Total 1885 980 320 Balance 729 1647 1284 Weight 91 kg 92.9 kg General appearance: PRESENT: no acute distress Eye exam: PRESENT: PERRLA Respiratory exam: PRESENT: rhonchi Cardiovascular exam: PRESENT: +S1, +S2 GI/Abdominal exam: PRESENT: soft Neurological exam: PRESENT: alert Results Laboratory Results: 10/23/18 04:00 10/23/18 15:19 10/22/18 10/23/18 10/23/18 11:25 04:00 04:00 WBC 10.7 H RBC 2.42 L Hgb 7.8 L Hct 23.8 L MCV 99 H MCH 32.1 MCHC 32.6 RDW 24.4 H Plt Count 60 L Seg Neutrophils % 71.5 Lymphocytes % 12.5 L Monocytes % 7.0 Eosinophils % 8.5 H Basophils % 0.5 Absolute Neutrophils 7.7 Absolute Lymphocytes 1.3 Absolute Monocytes 0.8 Absolute Eosinophils 0.9 H Absolute Basophils 0.1 Carbonic Acid HCO3/H2CO3 Ratio ABG pH ABG pCO2 ABG pO2 ABG HCO3 ABG O2 Saturation ABG Base Excess FiO2 Sodium 143.6 Potassium 3.4 L Chloride 110 H Carbon Dioxide 22 Anion Gap 12 BUN 9 Creatinine 3.22 H Est GFR ( Amer) 18 L Est GFR (Non-Af Amer) 15 L Glucose 85 Calcium 10.2 Magnesium 2.3 Total Bilirubin 1.5 H AST 25 ALT 18 Alkaline Phosphatase 104 Total Protein 6.0 L Albumin 2.8 L Blood Type B POSITIVE Antibody Screen NEGATIVE 10/23/18 10/23/18 04:40 15:19 WBC RBC Hgb Hct MCV MCH MCHC RDW Plt Count Seg Neutrophils % Lymphocytes % Monocytes % Eosinophils % Basophils % Absolute Neutrophils Absolute Lymphocytes Absolute Monocytes Absolute Eosinophils Absolute Basophils Carbonic Acid 1.45 H HCO3/H2CO3 Ratio 16:1 ABG pH 7.32 L ABG pCO2 48.1 H ABG pO2 61.3 L ABG HCO3 24.2 H ABG O2 Saturation 89.4 L ABG Base Excess -1.9 FiO2 40% Sodium Potassium 3.9 Chloride Carbon Dioxide Anion Gap BUN Creatinine Est GFR ( Amer) Est GFR (Non-Af Amer) Glucose Calcium Magnesium Total Bilirubin AST ALT Alkaline Phosphatase Total Protein Albumin Blood Type Antibody Screen 09/29/18 09/29/18 09/29/18 10:44 10:44 12:59 Creatine Kinase Cancelled CK-MB (CK-2) Troponin I Cancelled 0.028 NT-Pro-B Natriuret Pep 09/29/18 09/29/18 09/29/18 12:59 15:30 15:30 Creatine Kinase 77 161 H CK-MB (CK-2) 2.69 Troponin I 0.028 NT-Pro-B Natriuret Pep 09/29/18 09/29/18 09/30/18 18:59 18:59 00:59 Creatine Kinase 201 H 197 H CK-MB (CK-2) 3.45 Troponin I 0.023 NT-Pro-B Natriuret Pep 09/30/18 10/01/18 10/03/18 00:59 04:13 04:50 Creatine Kinase CK-MB (CK-2) 2.94 Troponin I 0.021 NT-Pro-B Natriuret Pep 2270 H 3170 H 10/09/18 04:50 Creatine Kinase CK-MB (CK-2) Troponin I NT-Pro-B Natriuret Pep 630 Impressions: Head CT 10/03/18 00:00 IMPRESSION: CHRONIC CHANGES OF ATROPHY AND MICROVASCULAR ISCHEMIA. NO ACUTE PROCESS. EVIDENCE OF ACUTE STROKE: NO. KUB X-Ray 10/05/18 00:00 IMPRESSION: Nasogastric tube tip and side port in the stomach Chest X-Ray 10/23/18 06:00 IMPRESSION: Interval extubation. Significant worsening of the right pleural effusion with now near complete opacification of the right hemithorax. A component of atelectasis is also considered. Patchy airspace opacity left lung base.. copyright 2011 [employer]- All Rights Reserved Assessment & Plan - Diagnosis (1) Septic shock Is this a current diagnosis for this admission?: Yes Plan: She continues to require low-dose Levophed (2) UTI (urinary tract infection) Qualifiers: Urinary tract infection type: site unspecified Hematuria presence: with hematuria Qualified Code(s): N39.0 - Urinary tract infection, site not specified; R31.9 - Hematuria, unspecified Is this a current diagnosis for this admission?: Yes Plan: continue Rocephin (3) Hypokalemia Is this a current diagnosis for this admission?: Yes (4) Hypomagnesemia Is this a current diagnosis for this admission?: Yes (5) Alcohol abuse Is this a current diagnosis for this admission?: Yes (6) Metabolic encephalopathy Is this a current diagnosis for this admission?: Yes Plan: Patient is very confused, there are many potential etiology of the confusion including elevated serum ammonia level, alcohol withdrawal syndrome, infection/UTI, seizure though unlikely, EEG is ordered, CT head was done there is no intracranial hemorrhage (7) Hyperammonemia Is this a current diagnosis for this admission?: Yes (8) Alcohol withdrawal Qualifiers: Complication of substance-induced condition: with delirium Qualified Code(s): F10.231 - Alcohol dependence with withdrawal delirium Is this a current diagnosis for this admission?: Yes (9) Respiratory failure with hypoxia and hypercapnia Qualifiers: Chronicity: acute Qualified Code(s): J96.01 - Acute respiratory failure with hypoxia; J96.02 - Acute respiratory failure with hypercapnia Is this a current diagnosis for this admission?: Yes (10) Nosocomial pneumonia Is this a current diagnosis for this admission?: Yes Plan: Bronchial washing was positive for gram positive cocci in clusters, patient already empirically on ertapenem (11) Hypotension Qualifiers: Hypotension type: unspecified hypotension type Qualified Code(s): I95.9 - Hypotension, unspecified Is this a current diagnosis for this admission?: Yes Plan: Patient blood pressure is low continues to require pressors, she has alcohol liver disease/liver cirrhosis the low blood pressure could be related to liver cirrhosis other than from sepsis, the DIC picture could also be from liver disease itself, factor VIII activity, could help differentiate liver disease from DIC in liver disease ,factor VIII activity will be elevated ,but in DIC ,it will be low (12) Gastroparesis Is this a current diagnosis for this admission?: Yes (13) Acute kidney injury Is this a current diagnosis for this admission?: Yes (14) DIC (disseminated intravascular coagulation) Is this a current diagnosis for this admission?: Yes Plan: Per Hematology (15) Lung collapse Is this a current diagnosis for this admission?: Yes (16) Liver cirrhosis Qualifiers: Hepatic cirrhosis type: alcoholic cirrhosis Ascites presence: with ascites Qualified Code(s): K70.31 - Alcoholic cirrhosis of liver with ascites Is this a current diagnosis for this admission?: Yes Plan: She has all the stigmata of chronic liver disease including persistent hypotension, coagulopathy, elevated serum ammonia level hypoalbuminemia
--- NOTE | 2018-10-23 18:01 | RADIOLOGY REPORT (SQ) ---
EXAM DESCRIPTION: CT ABD/PELVIS NO ORAL OR IV; CT CHEST WITHOUT COMPLETED DATE/TIME: 10/23/2018 5:46 pm REASON FOR STUDY: sepsis COMPARISON: Chest radiograph TECHNIQUE: CT scan of the chest performed without intravenous contrast using helical scanning techni que. Images reviewed with lung, soft tissue and bone windows. Reconstructed coronal and sagittal MPR images reviewed. All images stored on PACS. CT scan of the abdomen and pelvis performed without intravenous contrast and withoutoral contrast usi ng helical scanning technique with dynamic intravenous contrast injection. Images reviewed with lung , soft tissue and bone windows. Reconstructed coronal and sagittal MPR images reviewed. All images stored on PACS. All CT scanners at this facility use dose modulation, iterative reconstruction, and/or weight based d osing when appropriate to reduce radiation dose to as low as reasonably achievable (ALARA). [facility]: Dose Right [facility]: CareDose [facility]: Dose Right [facility]: Teradose 4D [facility]: [employer] RADIATION DOSE: CT Rad equipment meets quality standard of care and radiation dose reduction techniq ues were employed. CTDIvol: 17.8 mGy. DLP: 1253 mGy-cm. mGy. LIMITATIONS: No technical limitations. FINDINGS: CHEST: AXILLAE: No adenopathy. CHEST WALL: No masses. No subcutaneous air. Lungs and pleura: Near complete opacification of the right lung combination of effusion and atelecta sis. Differential is compression of atelectasis versus mucous plug. There is also a large left pleu ral effusion. Scattered parenchymal opacities. THYROID: No masses or significant asymmetry. HILAR AND MEDIASTINAL STRUCTURES: No identified masses or abnormal nodes. AORTA AND GREAT VESSELS: No aneurysm. HEART: No pericardial effusion. HARDWARE AND LIFELINES: Venous access catheter. BONES: No significant finding. OTHER: No other significant finding. ABDOMEN AND PELVIS: LIVER: Normal size. No masses. No dilated ducts. SPLEEN: Normal size. No focal lesions. PANCREAS: No masses. No significant calcifications. No adjacent inflammation or peripancreatic flui d collections. Pancreatic duct not dilated. GALLBLADDER: No identified stones by CT criteria. No inflammatory changes to suggest cholecystitis. ADRENAL GLANDS: No significant masses or asymmetry. RIGHT KIDNEY AND URETER: No solid masses. Assessment limited by lack of IV contrast. No significant c alcification. No hydronephrosis or hydroureter. LEFT KIDNEY AND URETER: No solid masses. Assessment limited by lack of IV contrast. No significant ca lcification. No hydronephrosis or hydroureter. AORTA AND VESSELS: No aneurysm. RETROPERITONEUM: No retroperitoneal adenopathy, hemorrhage or masses. APPENDIX: Not visualized. LARGE AND SMALL BOWEL: No dilatation. No masses. No wall thickening. ABDOMINAL WALL: No hernia or masses. PERITONEAL CAVITY: Generalized ascites. PELVIS: Free fluid. Ybarar catheter in the bladder. BONES: Hardware both femurs. OTHER: Inferior vena caval access catheter. Nasogastric tube. IMPRESSION: Marked right pleural effusion and compressive atelectasis or obstructive atelectasis of the right lung. Large left pleural effusion. Generalized ascites. TECHNICAL DOCUMENTATION: JOB ID: [id number] Quality ID # [id number]: Final reports with documentation of one or more dose reduction techniques (e.g., Au tomated exposure control, adjustment of the mA and/or kV according to patient size, use of iterative reconstruction technique) 2010 [employer]- All Rights Reserved Reading location - IP/workstation name: [email or web address]
[2018-10-23] MEDS: FLUCONAZOLE 200 MG/NS RTU 200 MG/100 ML RTUPB IV SCH (21:10)
[2018-10-23] MEDS: ERTAPENEM SODIUM 1 GM in NORMAL SALINE 50 ML IV SCH (21:13)
[2018-10-23] MEDS: MIDODRINE HCL 5 MG TABLET NG SCH (21:26)
[2018-10-24] MEDS: IPRATROPIUM/ALBUTEROL 0.5-2.5 MG/3 ML AMPUL NEB SCH ×4 (01:24→20:48)
[2018-10-24] MEDS: ALBUMIN HUMAN 12.5 GM/50 ML RTUINJ IV SCH ×4 (01:41→18:03)
[2018-10-24] MEDS: INSULIN LISPRO 100 UNIT/ML 3 ML VIAL SUBCUT SCH ×4 (01:41→18:03)
[2018-10-24 03:30] LABS: ABSOLUTE BASOPHILS # (AUTO) 0.1 10^3/uL (0.0-0.2); ABSOLUTE EOSINOPHILS # (AUTO) 0.8 10^3/uL (0.0-0.6); ABSOLUTE LYMPHOCYTES (AUTO) 1.1 10^3/uL (0.5-4.7); ABSOLUTE NEUT (AUTO) 10.7 10^3/uL (1.7-8.2); BASOPHILS % (AUTO) 0.5 % (0-2); HEMATOCRIT 28.2 % (36.0-47.0); HEMOGLOBIN 9.4 g/dL (12.0-15.5); LYMPHOCYTES % (AUTO) 8.1 % (13-45); MEAN CORPUSCULAR HEMOGLOBIN 31.5 pg (27.0-33.4); MEAN CORPUSCULAR HGB CONC 33.3 g/dL (32.0-36.0); MONOCYTES % (AUTO) 7.4 % (3-13); RED BLOOD COUNT 2.98 10^6/uL (3.72-5.28); TOTAL CELLS COUNTED % (AUTO) 100 %; WHITE BLOOD COUNT 13.7 10^3/uL (4.0-10.5)
[2018-10-24 03:31] LABS: ARTERIAL BLOOD BASE EXCESS -6.3 mmol/L; ARTERIAL BLOOD H2CO3 1.33 mmol/L (1.05-1.35); ARTERIAL BLOOD HCO3 20.2 mmol/L (20-24); ARTERIAL BLOOD O2 SATURATION 91.2 % (94-98); ARTERIAL BLOOD PCO2 44.1 mmHg (35-45); ARTERIAL BLOOD PH 7.28 (7.35-7.45); ARTERIAL BLOOD PO2 67.8 mmHg (80-100); ARTERIAL BLOOD TOTAL CO2 21.5 mmol/L (21-25)
[2018-10-24 03:32] LABS: MEAN CORPUSCULAR VOLUME 95 fl (80-97)
[2018-10-24 03:33] LABS: ARTERIAL BLOOD FIO2 50%
[2018-10-24 03:33] LABS: PLATELET COUNT 66 10^3/uL (150-450)
[2018-10-24 03:38] LABS: INTERNATIONAL RATION (INR) 1.36; PROTHROMBIN TIME 17.5 SEC (11.4-15.4)
[2018-10-24 03:39] LABS: FIBRINOGEN 196 mg/dL (209-497); PARTIAL THROMBOPLASTIN TIME 42.3 SEC (23.5-35.8)
[2018-10-24 04:14] LABS: ALANINE AMINOTRANSFERASE 18 U/L (9-52); ALKALINE PHOSPHATASE 102 U/L (38-126); ANION GAP 14 (5-19); ASPARTATE AMINO TRANSFERASE 29 U/L (14-36); BILIRUBIN,DIRECT 1.8 mg/dL (0.0-0.4); BILIRUBIN,TOTAL 2.2 mg/dL (0.2-1.3); BLOOD UREA NITROGEN 9 mg/dL (7-20); CALCIUM 10.6 mg/dL (8.4-10.2); CARBON DIOXIDE 21 mmol/L (22-30); CHLORIDE 111 mmol/L (98-107); GLUCOSE 92 mg/dL (75-110); POTASSIUM 3.9 mmol/L (3.6-5.0); SODIUM 145.8 mmol/L (137-145); TOTAL PROTEIN 6.3 g/dL (6.3-8.2)
[2018-10-24] MEDS: METOCLOPRAMIDE HCL INJ/PF 10 MG/2 ML SDV IV SCH (05:30)
[2018-10-24] MEDS: LACTOBACILLUS ACIDOPHILUS 250 MG TAB NG SCH ×2 (05:31→18:03)
[2018-10-24] MEDS: NORMAL SALINE 1000 ML 1,000 ML with POTASSIUM CHLORIDE 20 MEQ, MAGNESIUM SULFATE 8 MEQ,... IV SCH ×4 (07:01)
--- NOTE | 2018-10-24 08:02 | PDOC PROGRESS REPORT ---
Subjective Progress Note for:: 10/24/18 Subjective:: Patient remains on BiPAP. She responds to tactile stimuli and still grimaces when her abdomen or feet are touched. She does not follow my commands. Reason For Visit: SEPSIS, UTI, AMS, ACUTE KIDNEY INJURY, DELIRIUM Physical Exam Vital Signs: Temp Pulse Resp BP Pulse Ox 97.3 F 98 16 111/79 95 10/24/18 06:00 10/24/18 01:30 10/24/18 06:00 10/24/18 05:55 10/24/18 06:00 Intake & Output 10/23/18 10/24/18 10/25/18 06:59 06:59 06:59 Intake Total 2627 3598 Output Total 980 800 Balance 1647 2798 Weight 92.9 kg 95.1 kg General appearance: PRESENT: well-developed, well-nourished Head exam: PRESENT: other - facial edema. Respiratory exam: PRESENT: decreased breath sounds, unlabored Cardiovascular exam: PRESENT: RRR GI/Abdominal exam: PRESENT: soft, tenderness Extremities exam: PRESENT: +2 edema Neurological exam: PRESENT: altered, awake Focused psych exam: ABSENT: restlessness Skin exam: PRESENT: normal color Results Laboratory Results: 10/24/18 03:15 10/24/18 03:15 10/22/18 10/23/18 10/24/18 11:25 15:19 03:15 WBC 13.7 H RBC 2.98 L Hgb 9.4 L Hct 28.2 L MCV 95 D MCH 31.5 MCHC 33.3 RDW 23.0 H Plt Count 66 L Seg Neutrophils % 78.0 Lymphocytes % 8.1 L Monocytes % 7.4 Eosinophils % 6.0 Basophils % 0.5 Absolute Neutrophils 10.7 H Absolute Lymphocytes 1.1 Absolute Monocytes 1.0 Absolute Eosinophils 0.8 H Absolute Basophils 0.1 Carbonic Acid HCO3/H2CO3 Ratio ABG pH ABG pCO2 ABG pO2 ABG HCO3 ABG O2 Saturation ABG Base Excess FiO2 Sodium Potassium 3.9 Chloride Carbon Dioxide Anion Gap BUN Creatinine Est GFR ( Amer) Est GFR (Non-Af Amer) Glucose Calcium Magnesium Total Bilirubin AST ALT Alkaline Phosphatase Total Protein Albumin Blood Type B POSITIVE Antibody Screen NEGATIVE 10/24/18 10/24/18 03:15 03:25 WBC RBC Hgb Hct MCV MCH MCHC RDW Plt Count Seg Neutrophils % Lymphocytes % Monocytes % Eosinophils % Basophils % Absolute Neutrophils Absolute Lymphocytes Absolute Monocytes Absolute Eosinophils Absolute Basophils Carbonic Acid 1.33 HCO3/H2CO3 Ratio 15:1 ABG pH 7.28 L ABG pCO2 44.1 ABG pO2 67.8 L ABG HCO3 20.2 ABG O2 Saturation 91.2 L ABG Base Excess -6.3 FiO2 50% Sodium 145.8 H Potassium 3.9 Chloride 111 H Carbon Dioxide 21 L Anion Gap 14 BUN 9 Creatinine 3.29 H Est GFR ( Amer) 18 L Est GFR (Non-Af Amer) 15 L Glucose 92 Calcium 10.6 H Magnesium 2.3 Total Bilirubin 2.2 H AST 29 ALT 18 Alkaline Phosphatase 102 Total Protein 6.3 Albumin 3.0 L Blood Type Antibody Screen 09/29/18 09/29/18 09/29/18 10:44 10:44 12:59 Creatine Kinase Cancelled CK-MB (CK-2) Troponin I Cancelled 0.028 NT-Pro-B Natriuret Pep 09/29/18 09/29/18 09/29/18 12:59 15:30 15:30 Creatine Kinase 77 161 H CK-MB (CK-2) 2.69 Troponin I 0.028 NT-Pro-B Natriuret Pep 09/29/18 09/29/18 09/30/18 18:59 18:59 00:59 Creatine Kinase 201 H 197 H CK-MB (CK-2) 3.45 Troponin I 0.023 NT-Pro-B Natriuret Pep 09/30/18 10/01/18 10/03/18 00:59 04:13 04:50 Creatine Kinase CK-MB (CK-2) 2.94 Troponin I 0.021 NT-Pro-B Natriuret Pep 2270 H 3170 H 10/09/18 04:50 Creatine Kinase CK-MB (CK-2) Troponin I NT-Pro-B Natriuret Pep 630 Impressions: Head CT 10/03/18 00:00 IMPRESSION: CHRONIC CHANGES OF ATROPHY AND MICROVASCULAR ISCHEMIA. NO ACUTE PROCESS. EVIDENCE OF ACUTE STROKE: NO. KUB X-Ray 10/05/18 00:00 IMPRESSION: Nasogastric tube tip and side port in the stomach Abdomen/Pelvis CT 10/23/18 00:00 IMPRESSION: Marked right pleural effusion and compressive atelectasis or o bstructive atelectasis of the right lung. Large left pleural effusion. Generalized ascites. Chest CT 10/23/18 00:00 IMPRESSION: Marked right pleural effusion and compressive atelectasis or obstructive atelectasis of the right lung. Large left pleural effusion. Generalized ascites. Assessment & Plan - Diagnosis (1) Septic shock Is this a current diagnosis for this admission?: Yes Plan: Patient is still requiring full support. Her BP, breathing, and temperature are not being regulated well. Repeat blood cultures were drawn yesterday and are pending. (2) DIC (disseminated intravascular coagulation) Is this a current diagnosis for this admission?: Yes Plan: Her coagulopathy continues. I have discussed this with primary team. It could be continued infection, or it could be that her liver function is such that she is no longer able to produce her clotting factors. This is a grave sign and is usually not recoverable. (3) Metabolic encephalopathy Is this a current diagnosis for this admission?: Yes Plan: Her ammonia level is still elevated. (4) Thrombocytopenia Is this a current diagnosis for this admission?: Yes (5) Anemia Qualifiers: Anemia type: unspecified type Qualified Code(s): D64.9 - Anemia, unspecified Is this a current diagnosis for this admission?: Yes - Plan Summary Plan Summary: Still awaiting transfer to tertiary center, but I will try to arrange a family meeting today to make sure everyone is aware that patient may need re-intubation and may not be able to come off further life support. If family wishes to remain aggressive, then CT C/A and possible liver biopsy would be recommended to help determine further the cause of the continued coagulopathy.
--- NOTE | 2018-10-24 08:32 | RADIOLOGY REPORT (SQ) ---
EXAM DESCRIPTION: CHEST SINGLE VIEW COMPLETED DATE/TIME: 10/24/2018 6:27 am REASON FOR STUDY: resp. failure COMPARISON: 10/23/2018. EXAM PARAMETERS: NUMBER OF VIEWS: One view. TECHNIQUE: Single frontal radiographic view of the chest acquired. RADIATION DOSE: NA LIMITATIONS: None. FINDINGS: LUNGS AND PLEURA: Improved aeration in the right lung. Bilateral pleural effusions with p atchy airspace disease in the left lung. MEDIASTINUM AND HILAR STRUCTURES: No masses. Contour normal. HEART AND VASCULAR STRUCTURES: Mild cardiomegaly. BONES: No acute findings. HARDWARE: Stable nasogastric tube and central line. OTHER: No other significant finding. IMPRESSION: INTERVAL IMPROVED AERATION IN THE RIGHT LUNG. BILATERAL PLEURAL EFFUSIONS AND PATCHY AI RSPACE DISEASE IN THE LEFT LUNG. TECHNICAL DOCUMENTATION: JOB ID: [id number] [employer]- All Rights Reserved Reading location - IP/workstation name: [email or web address]
[2018-10-24] MEDS: ACETYLCYSTEINE 20% SOLN 800 MG/4 ML VIAL.NEB NEB SCH ×2 (08:43→20:48)
[2018-10-24] MEDS: MIDODRINE HCL 5 MG TABLET NG SCH ×2 (09:38→22:31)
[2018-10-24] MEDS: THIAMINE HCL 100 MG TABLET NG SCH (09:38)
[2018-10-24] MEDS: SODIUM BICARBONATE 650 MG TABLET PO SCH ×2 (09:38→22:31)
[2018-10-24] MEDS: NYSTATIN TOPICAL POWDER 15 GM TP SCH ×2 (09:39→18:05)
[2018-10-24] MEDS ORDERED: EPOETIN ALFA INJ 20000 UNIT/1 ML VIAL (RENAL) IV PRN (10:16)
[2018-10-24] MEDS ORDERED: NORMAL SALINE 1000 ML 1,000 ML IV PRN (10:16)
--- NOTE | 2018-10-24 12:52 | PDOC PROGRESS REPORT ---
Subjective Progress Note for:: 10/24/18 Subjective:: Patient was seen by the bedside, the constellation of persistent hypotension, coagulopathy, elevated ammonia level is consistent with liver cirrhosis/advanced liver disease. Yesterday she was started on midodrine for low blood pressure, coagulopathy from liver disease is very similar to DIC picture, factor VIII activity is out of differentiate between DIC and liver disease but unfortunately she already received FFP so this test will be inappropriate at this time for this patient. I tried to reach the patient's family with no success. CT scan that was done yesterday of the chest, abdomen and pelvis was consistent with severe anasarca, pleural effusion and ascites, ultrasound-guided thoracentesis ordered Reason For Visit: SEPSIS, UTI, AMS, ACUTE KIDNEY INJURY, DELIRIUM Physical Exam Vital Signs: Temp Pulse Resp BP Pulse Ox 95.2 F L 96 11 L 109/91 H 99 10/24/18 11:00 10/24/18 10:00 10/24/18 11:00 10/24/18 10:55 10/24/18 11:00 Intake & Output 10/23/18 10/24/18 10/25/18 06:59 06:59 06:59 Intake Total 2627 3598 Output Total 980 800 60 Balance 1647 2798 -60 Weight 92.9 kg 95.1 kg General appearance: PRESENT: mild distress Eye exam: PRESENT: PERRLA Respiratory exam: PRESENT: other - Patient on BiPAP Cardiovascular exam: PRESENT: +S1, +S2 GI/Abdominal exam: PRESENT: soft Neurological exam: PRESENT: alert Results Laboratory Results: 10/24/18 03:15 10/24/18 03:15 10/22/18 10/23/18 10/24/18 11:25 15:19 03:15 WBC 13.7 H RBC 2.98 L Hgb 9.4 L Hct 28.2 L MCV 95 D MCH 31.5 MCHC 33.3 RDW 23.0 H Plt Count 66 L Seg Neutrophils % 78.0 Lymphocytes % 8.1 L Monocytes % 7.4 Eosinophils % 6.0 Basophils % 0.5 Absolute Neutrophils 10.7 H Absolute Lymphocytes 1.1 Absolute Monocytes 1.0 Absolute Eosinophils 0.8 H Absolute Basophils 0.1 Carbonic Acid HCO3/H2CO3 Ratio ABG pH ABG pCO2 ABG pO2 ABG HCO3 ABG O2 Saturation ABG Base Excess FiO2 Sodium Potassium 3.9 Chloride Carbon Dioxide Anion Gap BUN Creatinine Est GFR ( Amer) Est GFR (Non-Af Amer) Glucose Calcium Magnesium Total Bilirubin AST ALT Alkaline Phosphatase Total Protein Albumin Blood Type B POSITIVE Antibody Screen NEGATIVE 10/24/18 10/24/18 03:15 03:25 WBC RBC Hgb Hct MCV MCH MCHC RDW Plt Count Seg Neutrophils % Lymphocytes % Monocytes % Eosinophils % Basophils % Absolute Neutrophils Absolute Lymphocytes Absolute Monocytes Absolute Eosinophils Absolute Basophils Carbonic Acid 1.33 HCO3/H2CO3 Ratio 15:1 ABG pH 7.28 L ABG pCO2 44.1 ABG pO2 67.8 L ABG HCO3 20.2 ABG O2 Saturation 91.2 L ABG Base Excess -6.3 FiO2 50% Sodium 145.8 H Potassium 3.9 Chloride 111 H Carbon Dioxide 21 L Anion Gap 14 BUN 9 Creatinine 3.29 H Est GFR ( Amer) 18 L Est GFR (Non-Af Amer) 15 L Glucose 92 Calcium 10.6 H Magnesium 2.3 Total Bilirubin 2.2 H AST 29 ALT 18 Alkaline Phosphatase 102 Total Protein 6.3 Albumin 3.0 L Blood Type Antibody Screen 09/29/18 09/29/18 09/29/18 10:44 10:44 12:59 Creatine Kinase Cancelled CK-MB (CK-2) Troponin I Cancelled 0.028 NT-Pro-B Natriuret Pep 09/29/18 09/29/18 09/29/18 12:59 15:30 15:30 Creatine Kinase 77 161 H CK-MB (CK-2) 2.69 Troponin I 0.028 NT-Pro-B Natriuret Pep 09/29/18 09/29/18 09/30/18 18:59 18:59 00:59 Creatine Kinase 201 H 197 H CK-MB (CK-2) 3.45 Troponin I 0.023 NT-Pro-B Natriuret Pep 09/30/18 10/01/18 10/03/18 00:59 04:13 04:50 Creatine Kinase CK-MB (CK-2) 2.94 Troponin I 0.021 NT-Pro-B Natriuret Pep 2270 H 3170 H 10/09/18 04:50 Creatine Kinase CK-MB (CK-2) Troponin I NT-Pro-B Natriuret Pep 630 Impressions: Head CT 10/03/18 00:00 IMPRESSION: CHRONIC CHANGES OF ATROPHY AND MICROVASCULAR ISCHEMIA. NO ACUTE PROCESS. EVIDENCE OF ACUTE STROKE: NO. KUB X-Ray 10/05/18 00:00 IMPRESSION: Nasogastric tube tip and side port in the stomach Abdomen/Pelvis CT 10/23/18 00:00 IMPRESSION: Marked right pleural effusion and compressive atelectasis or obstructive atelectasis of the right lung. Large left pleural effusion. Generalized ascites. Chest CT 10/23/18 00:00 IMPRESSION: Marked right pleural effusion and compressive atelectasis or obstructive atelectasis of the right lung. Large left pleural effusion. Generalized ascites. Chest X-Ray 10/24/18 06:00 IMPRESSION: INTERVAL IMPROVED AERATION IN THE RIGHT LUNG. BILATERAL PLEURAL EFFUSIONS AND PATCHY AIRSPACE DISEASE IN THE LEFT LUNG. Assessment & Plan - Diagnosis (1) Septic shock Is this a current diagnosis for this admission?: Yes (2) UTI (urinary tract infection) Qualifiers: Urinary tract infection type: site unspecified Hematuria presence: with hematuria Qualified Code(s): N39.0 - Urinary tract infection, site not specified; R31.9 - Hematuria, unspecified Is this a current diagnosis for this admission?: Yes (3) Hypokalemia Is this a current diagnosis for this admission?: Yes (4) Hypomagnesemia Is this a current diagnosis for this admission?: Yes (5) Alcohol abuse Is this a current diagnosis for this admission?: Yes (6) Metabolic encephalopathy Is this a current diagnosis for this admission?: Yes (7) Hyperammonemia Is this a current diagnosis for this admission?: Yes (8) Alcohol withdrawal Qualifiers: Complication of substance-induced condition: with delirium Qualified Code(s): F10.231 - Alcohol dependence with withdrawal delirium Is this a current diagnosis for this admission?: Yes (9) Respiratory failure with hypoxia and hypercapnia Qualifiers: Chronicity: acute Qualified Code(s): J96.01 - Acute respiratory failure with hypoxia; J96.02 - Acute respiratory failure with hypercapnia Is this a current diagnosis for this admission?: Yes (10) Nosocomial pneumonia Is this a current diagnosis for this admission?: Yes (11) Hypotension Qualifiers: Hypotension type: unspecified hypotension type Qualified Code(s): I95.9 - Hypotension, unspecified Is this a current diagnosis for this admission?: Yes Plan: The blood pressure respond to midodrine (12) Gastroparesis Is this a current diagnosis for this admission?: Yes (13) Acute kidney injury Is this a current diagnosis for this admission?: Yes (14) DIC (disseminated intravascular coagulation) Is this a current diagnosis for this admission?: Yes (15) Lung collapse Is this a current diagnosis for this admission?: Yes (16) Liver cirrhosis, alcoholic Qualifiers: Ascites presence: with ascites Qualified Code(s): K70.31 - Alcoholic cirrhosis of liver with ascites Is this a current diagnosis for this admission?: Yes Plan: She has all the stigmata of advanced liver disease, coagulopathy, ascites, encephalopathy, pleural effusion, hypotension, she will need thoracentesis and also paracentesis, prognosis is very poor in this patient
--- NOTE | 2018-10-24 13:36 | PDOC PROGRESS REPORT ---
Subjective Progress Note for:: 10/24/18 Subjective:: Patient currently on Bipap with supplemental O2 Reason For Visit: SEPSIS, UTI, AMS, ACUTE KIDNEY INJURY, DELIRIUM Physical Exam Vital Signs: Temp Pulse Resp BP Pulse Ox 95.2 F L 89 13 108/66 95 10/24/18 12:00 10/24/18 12:00 10/24/18 13:05 10/24/18 12:00 10/24/18 13:05 Intake & Output 10/23/18 10/24/18 10/25/18 06:59 06:59 06:59 Intake Total 2627 3598 Output Total 980 800 110 Balance 1647 2798 -110 Weight 92.9 kg 95.1 kg General appearance: PRESENT: no acute distress, well-developed, well-nourished Head exam: PRESENT: atraumatic, normocephalic Eye exam: PRESENT: conjunctiva pink, EOMI, PERRLA. ABSENT: scleral icterus Ear exam: PRESENT: normal external ear exam Mouth exam: PRESENT: moist, tongue midline Neck exam: ABSENT: carotid bruit, JVD, lymphadenopathy, thyromegaly Respiratory exam: PRESENT: crackles, rales, rhonchi, wheezes Cardiovascular exam: PRESENT: RRR. ABSENT: diastolic murmur, rubs, systolic murmur Pulses: PRESENT: normal dorsalis pedis pul Vascular exam: PRESENT: normal capillary refill GI/Abdominal exam: PRESENT: normal bowel sounds, soft. ABSENT: distended, guarding, mass, organolmegaly, rebound, tenderness Rectal exam: PRESENT: deferred Extremities exam: PRESENT: full ROM. ABSENT: calf tenderness, clubbing, pedal edema Neurological exam: ABSENT: awake, oriented to person, motor sensory deficit Psychiatric exam: PRESENT: appropriate affect, normal mood. ABSENT: homicidal ideation, suicidal ideation Skin exam: PRESENT: dry, intact, warm. ABSENT: cyanosis, rash Results Laboratory Results: 10/24/18 03:15 10/24/18 03:15 10/23/18 10/24/18 10/24/18 15:19 03:15 03:15 WBC 13.7 H RBC 2.98 L Hgb 9.4 L Hct 28.2 L MCV 95 D MCH 31.5 MCHC 33.3 RDW 23.0 H Plt Count 66 L Seg Neutrophils % 78.0 Lymphocytes % 8.1 L Monocytes % 7.4 Eosinophils % 6.0 Basophils % 0.5 Absolute Neutrophils 10.7 H Absolute Lymphocytes 1.1 Absolute Monocytes 1.0 Absolute Eosinophils 0.8 H Absolute Basophils 0.1 Carbonic Acid HCO3/H2CO3 Ratio ABG pH ABG pCO2 ABG pO2 ABG HCO3 ABG O2 Saturation ABG Base Excess FiO2 Sodium 145.8 H Potassium 3.9 3.9 Chloride 111 H Carbon Dioxide 21 L Anion Gap 14 BUN 9 Creatinine 3.29 H Est GFR ( Amer) 18 L Est GFR (Non-Af Amer) 15 L Glucose 92 Calcium 10.6 H Magnesium 2.3 Total Bilirubin 2.2 H AST 29 ALT 18 Alkaline Phosphatase 102 Total Protein 6.3 Albumin 3.0 L 10/24/18 03:25 WBC RBC Hgb Hct MCV MCH MCHC RDW Plt Count Seg Neutrophils % Lymphocytes % Monocytes % Eosinophils % Basophils % Absolute Neutrophils Absolute Lymphocytes Absolute Monocytes Absolute Eosinophils Absolute Basophils Carbonic Acid 1.33 HCO3/H2CO3 Ratio 15:1 ABG pH 7.28 L ABG pCO2 44.1 ABG pO2 67.8 L ABG HCO3 20.2 ABG O2 Saturation 91.2 L ABG Base Excess -6.3 FiO2 50% Sodium Potassium Chloride Carbon Dioxide Anion Gap BUN Creatinine Est GFR ( Amer) Est GFR (Non-Af Amer) Glucose Calcium Magnesium Total Bilirubin AST ALT Alkaline Phosphatase Total Protein Albumin 09/29/18 09/29/18 09/29/18 10:44 10:44 12:59 Creatine Kinase Cancelled CK-MB (CK-2) Troponin I Cancelled 0.028 NT-Pro-B Natriuret Pep 09/29/18 09/29/18 09/29/18 12:59 15:30 15:30 Creatine Kinase 77 161 H CK-MB (CK-2) 2.69 Troponin I 0.028 NT-Pro-B Natriuret Pep 09/29/18 09/29/18 09/30/18 18:59 18:59 00:59 Creatine Kinase 201 H 197 H CK-MB (CK-2) 3.45 Troponin I 0.023 NT-Pro-B Natriuret Pep 09/30/18 10/01/18 10/03/18 00:59 04:13 04:50 Creatine Kinase CK-MB (CK-2) 2.94 Troponin I 0.021 NT-Pro-B Natriuret Pep 2270 H 3170 H 10/09/18 04:50 Creatine Kinase CK-MB (CK-2) Troponin I NT-Pro-B Natriuret Pep 630 Impressions: Head CT 10/03/18 00:00 IMPRESSION: CHRONIC CHANGES OF ATROPHY AND MICROVASCULAR ISCHEMIA. NO ACUTE PROCESS. EVIDENCE OF ACUTE STROKE: NO. KUB X-Ray 10/05/18 00:00 IMPRESSION: Nasogastric tube tip and side port in the stomach Abdomen/Pelvis CT 10/23/18 00:00 IMPRESSION: Marked right pleural effusion and compressive atelectasis or obstructive atelectasis of the right lung. Large left pleural effusion. Generalized ascites. Chest CT 10/23/18 00:00 IMPRESSION: Marked right pleural effusion and compressive atelectasis or obstructive atelectasis of the right lung. Large left pleural effusion. Generalized ascites. Chest X-Ray 10/24/18 06:00 IMPRESSION: INTERVAL IMPROVED AERATION IN THE RIGHT LUNG. BILATERAL PLEURAL EFFUSIONS AND PATCHY AIRSPACE DISEASE IN THE LEFT LUNG. Assessment & Plan - Diagnosis (1) Metabolic encephalopathy Is this a current diagnosis for this admission?: Yes Plan: unchanged (2) Respiratory failure with hypoxia and hypercapnia Qualifiers: Chronicity: acute Qualified Code(s): J96.01 - Acute respiratory failure with hypoxia; J96.02 - Acute respiratory failure with hypercapnia Is this a current diagnosis for this admission?: Yes Plan: continue bipap therapy with supplemental oxygen (3) Septic shock Is this a current diagnosis for this admission?: Yes Plan: continue vasopressor therapy - Time Total Critical Time (Minutes): 38 Inpatient Scribe Statement - . Entered by Monse Shaw , acting as scribe for Dr. Óscar Villalpando .
[2018-10-24] MEDS: NORMAL SALINE 250 ML with FUROSEMIDE 250 MG IV PRN ×2 (15:00)
--- NOTE | 2018-10-24 18:13 | Progress Note ---
Provider Note Provider Note: I had a long discussion with patient's family members, the spouse children about prognosis and patient's condition. She has advanced liver disease with all the stigmata of liver disease including coagulopathy, ascites, pleural effusion, persistent hypotension, elevated serum ammonia level patient have a history of chronic alcohol abuse with alcohol liver disease
--- NOTE | 2018-10-24 18:32 | PDOC PROGRESS REPORT ---
Subjective Progress Note for:: 10/24/18 Subjective:: Saw the patient at around 8:50 AM this morning. She has been extubated and is currently on BiPAP. She is awake and nods on some questions. She utters incomprehensible words while on BiPAP though but difficult to understand. She is off pressors better systolic blood pressures are still in the 90s. Her urine output has been declining for the last 48 hours anywhere between 800- 900 mL a day. She continues to be on the Lasix drip and scheduled IV albumin every 6 hours. She still has significant anasarca clinically. From a far, one can hear a gurgling sounds coming from her lungs. Per her nurse she has thick secretions and suctioning. Dialysis was done last Wednesday but minimal ultrafiltration was obtained due to hypotension. Patient is on a waiting list for transfer to a tertiary care. Will to try to do ultrafiltration through dialysis again today i f she tolerates. We might need to start her on some pressors during ultrafiltration if needed. 6:30 PM. Patient is currently being initiated for hemodialysis and ultrafiltration. I had them restart the Beny-Synephrine her blood pressure will improve a little bit with dialysis. They are also going to give her IV albumin during the day if he can do a decent ultrafiltration. Her urine output for the whole day since morning is only 260 mL. Reason For Visit: SEPSIS, UTI, AMS, ACUTE KIDNEY INJURY, DELIRIUM Physical Exam Vital Signs: Temp Pulse Resp BP Pulse Ox 96.6 F L 93 25 H 99/74 L 99 10/24/18 08:00 10/24/18 08:43 10/24/18 08:43 10/24/18 08:00 10/24/18 08:43 Intake & Output 10/23/18 10/24/18 10/25/18 06:59 06:59 06:59 Intake Total 2627 3598 Output Total 980 800 50 Balance 1647 2798 -50 Weight 92.9 kg 95.1 kg Vitals during initiation of hemodialysis with ultrafiltration: Blood pressure 113/87, heart rate of 93, oxygen saturation of 97% on BiPAP. Exam: General appearance: PRESENT: Currently on BiPAP and awake, minimal response to questioning by nodding her head Head exam: PRESENT: atraumatic, normocephalic Eye exam: PRESENT: conjunctiva pale, PERRLA. ABSENT: scleral icterus Neck exam: ABSENT: JVD Respiratory exam: PRESENT: Coarse breath sounds. Positive bibasilar and bilateral crackles ABSENT: Rhonchi, unlabored, wheezes Cardiovascular exam: PRESENT: Regular rate rhythm -+S1, +S2. ABSENT: diastolic murmur, systolic murmur GI/Abdominal exam: PRESENT: Hypoactive bowel sounds, soft. ABSENT: guarding, mass, tenderness Extremities exam: Positive anasarca with grade 2 bilateral lower extremity pitting edema up to her thighs Neurological exam: PRESENT: awake, minimal response to questions as above. Skin exam: PRESENT: dry, warm, Cardiovascular exam: PRESENT: +S1, +S2, systolic murmur GI/Abdominal exam: PRESENT: normal bowel sounds, soft. ABSENT: organomegaly, tenderness Results Laboratory Results: 10/24/18 03:15 10/24/18 03:15 10/22/18 10/23/18 10/24/18 11:25 15:19 03:15 WBC 13.7 H RBC 2.98 L Hgb 9.4 L Hct 28.2 L MCV 95 D MCH 31.5 MCHC 33.3 RDW 23.0 H Plt Count 66 L Seg Neutrophils % 78.0 Lymphocytes % 8.1 L Monocytes % 7.4 Eosinophils % 6.0 Basophils % 0.5 Absolute Neutrophils 10.7 H Absolute Lymphocytes 1.1 Absolute Monocytes 1.0 Absolute Eosinophils 0.8 H Absolute Basophils 0.1 Carbonic Acid HCO3/H2CO3 Ratio ABG pH ABG pCO2 ABG pO2 ABG HCO3 ABG O2 Saturation ABG Base Excess FiO2 Sodium Potassium 3.9 Chloride Carbon Dioxide Anion Gap BUN Creatinine Est GFR ( Amer) Est GFR (Non-Af Amer) Glucose Calcium Magnesium Total Bilirubin AST ALT Alkaline Phosphatase Total Protein Albumin Blood Type B POSITIVE Antibody Screen NEGATIVE 10/24/18 10/24/18 03:15 03:25 WBC RBC Hgb Hct MCV MCH MCHC RDW Plt Count Seg Neutrophils % Lymphocytes % Monocytes % Eosinophils % Basophils % Absolute Neutrophils Absolute Lymphocytes Absolute Monocytes Absolute Eosinophils Absolute Basophils Carbonic Acid 1.33 HCO3/H2CO3 Ratio 15:1 ABG pH 7.28 L ABG pCO2 44.1 ABG pO2 67.8 L ABG HCO3 20.2 ABG O2 Saturation 91.2 L ABG Base Excess -6.3 FiO2 50% Sodium 145.8 H Potassium 3.9 Chloride 111 H Carbon Dioxide 21 L Anion Gap 14 BUN 9 Creatinine 3.29 H Est GFR ( Amer) 18 L Est GFR (Non-Af Amer) 15 L Glucose 92 Calcium 10.6 H Magnesium 2.3 Total Bilirubin 2.2 H AST 29 ALT 18 Alkaline Phosphatase 102 Total Protein 6.3 Albumin 3.0 L Blood Type Antibody Screen 09/29/18 09/29/18 09/29/18 10:44 10:44 12:59 Creatine Kinase Cancelled CK-MB (CK-2) Troponin I Cancelled 0.028 NT-Pro-B Natriuret Pep 09/29/18 09/29/18 09/29/18 12:59 15:30 15:30 Creatine Kinase 77 161 H CK-MB (CK-2) 2.69 Troponin I 0.028 NT-Pro-B Natriuret Pep 09/29/18 09/29/18 09/30/18 18:59 18:59 00:59 Creatine Kinase 201 H 197 H CK-MB (CK-2) 3.45 Troponin I 0.023 NT-Pro-B Natriuret Pep 09/30/18 10/01/18 10/03/18 00:59 04:13 04:50 Creatine Kinase CK-MB (CK-2) 2.94 Troponin I 0.021 NT-Pro-B Natriuret Pep 2270 H 3170 H 10/09/18 04:50 Creatine Kinase CK-MB (CK-2) Troponin I NT-Pro-B Natriuret Pep 630 Impressions: Head CT 10/03/18 00:00 IMPRESSION: CHRONIC CHANGES OF ATROPHY AND MICROVASCULAR ISCHEMIA. NO ACUTE PROCESS. EVIDENCE OF ACUTE STROKE: NO. KUB X-Ray 10/05/18 00:00 IMPRESSION: Nasogastric tube tip and side port in the stomach Abdomen/Pelvis CT 10/23/18 00:00 IMPRESSION: Marked right pleural effusion and compressive atelectasis or obstructive atelectasis of the right lung. Large left pleural effusion. Generalized ascites. Chest CT 10/23/18 00:00 IMPRESSION: Marked right pleural effusion and compressive atelectasis or obstructive atelectasis of the right lung. Large left pleural effusion. Generalized ascites. Chest X-Ray 10/24/18 06:00 IMPRESSION: INTERVAL IMPROVED AERATION IN THE RIGHT LUNG. BILATERAL PLEURAL EFFUSIONS AND PATCHY AIRSPACE DISEASE IN THE LEFT LUNG. Assessment & Plan - Diagnosis (1) Acute kidney injury Is this a current diagnosis for this admission?: Yes Plan: Secondary to ATN due to septic shock. Urine output has been declining for the last 48 hours while she remains to have anasarca. She continues to be on Lasix drip and scheduled IV albumin. Her creatinine is also increasing. We will try to do ultrafiltration through hemodialysis again today. We will do dialysis today for 2.5 hours during ultrafiltration for 1.5 hours and hemodialysis for 1 hour if the patient tolerates, using the patient's trialysis catheter, with 3 potassium bath, blood flow rate of 300 mL per minute, dialysate flow rate of 600 mL per minute, ultrafiltration 2-3 L as tolerated, no heparin and Procrit with 20,000 units during dialysis intravenously. Treatment plan discussed with the patient's nurse and our dialysis nurse. Patient will be monitored throughout dialysis treatment. We will continue the Beny-Synephrine and give the patient IV albumin to hopefully get ultrafiltration. This afternoon the patient's 2 daughters are at bedside. I informed them about what were going to try to do to help the patient's kidney function and anasarca. They understood without any questions. (2) Acute tubular necrosis Is this a current diagnosis for this admission?: Yes (3) Sepsis Qualifiers: Sepsis type: sepsis due to unspecified organism Qualified Code(s): A41.9 - Sepsis, unspecified organism Is this a current diagnosis for this admission?: Yes (4) Escherichia coli urinary tract infection Is this a current diagnosis for this admission?: Yes (5) Metabolic encephalopathy Is this a current diagnosis for this admission?: Yes Plan: Multifactorial due to septic shock, infection, and alcohol withdrawal. (6) Metabolic acidosis Is this a current diagnosis for this admission?: Yes Plan: Improved. (7) Respiratory failure with hypoxia and hypercapnia Qualifiers: Chronicity: acute Qualified Code(s): J96.01 - Acute respiratory failure with hypoxia; J96.02 - Acute respiratory failure with hypercapnia Is this a current diagnosis for this admission?: Yes Plan: Currently now on BiPAP. (8) Hypoalbuminemia Is this a current diagnosis for this admission?: Yes Plan: Currently on scheduled IV albumin infusion. (9) Nosocomial pneumonia Is this a current diagnosis for this admission?: Yes (10) Alcoholism Is this a current diagnosis for this admission?: Yes Plan: She is currently being given multivitamins with alcohol withdrawal protocol. 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 Also strong consideration for possible liver disease. We will give her Procrit on dialysis. (12) DIC (disseminated intravascular coagulation) Is this a current diagnosis for this admission?: Yes Plan: Hematology following. Considering chronic liver disease. (13) Hyperammonemia Is this a current diagnosis for this admission?: Yes Plan: The consensus in this patient is that she may have advanced liver disease that is causing her coagulopathy and encephalopathy with elevated ammonia level. Dr. Higuera and Dr. Klein is been discussing this with the family. - Time Time with patient: Greater than 35 minutes
[2018-10-25] MEDS: ALBUMIN HUMAN 12.5 GM/50 ML RTUINJ IV SCH ×4 (01:21→17:09)
[2018-10-25] MEDS: INSULIN LISPRO 100 UNIT/ML 3 ML VIAL SUBCUT SCH ×4 (01:22→17:25)
[2018-10-25] MEDS: IPRATROPIUM/ALBUTEROL 0.5-2.5 MG/3 ML AMPUL NEB SCH ×4 (02:10→21:32)
[2018-10-25 05:45] LABS: INTERNATIONAL RATION (INR) 1.46; PROTHROMBIN TIME 18.4 SEC (11.4-15.4)
[2018-10-25 05:46] LABS: FIBRINOGEN 228 mg/dL (209-497); PARTIAL THROMBOPLASTIN TIME 44.9 SEC (23.5-35.8)
[2018-10-25] MEDS: LACTOBACILLUS ACIDOPHILUS 250 MG TAB NG SCH ×2 (06:02→17:09)
[2018-10-25 06:12] LABS: ANION GAP 11 (5-19); BLOOD UREA NITROGEN 8 mg/dL (7-20); CALCIUM 10.3 mg/dL (8.4-10.2); CARBON DIOXIDE 24 mmol/L (22-30); CHLORIDE 111 mmol/L (98-107); GLUCOSE 78 mg/dL (75-110); POTASSIUM 3.9 mmol/L (3.6-5.0); SODIUM 145.7 mmol/L (137-145)
--- NOTE | 2018-10-25 06:36 | RADIOLOGY REPORT (SQ) ---
EXAM DESCRIPTION: XR CHEST 1 VIEW COMPLETED DATE/TME: 10/25/2018 07:00 CLINICAL HISTORY: 53 years Female, pneumonia COMPARISON: One day prior. NUMBER OF VIEWS/TECHNIQUE: 1/AP FINDINGS: Worsening includes near complete opacification/effusion of the right hemithorax. Severe mixed airspace and interstitial opacities, right more than left. No pneumothorax. Stable bony thorax. Likely adequate appearing enteric tube partially obscured. Adequate appearing right jugular central line. IMPRESSION: Worsening includes near complete opacification/effusion of the right hemithorax.
[2018-10-25] MEDS: ACETYLCYSTEINE 20% SOLN 800 MG/4 ML VIAL.NEB NEB SCH ×2 (07:44→21:32)
[2018-10-25] MEDS: NORMAL SALINE 1000 ML 1,000 ML with POTASSIUM CHLORIDE 20 MEQ, MAGNESIUM SULFATE 8 MEQ,... IV SCH ×4 (08:13)
--- NOTE | 2018-10-25 08:15 | PDOC PROGRESS REPORT ---
Subjective Progress Note for:: 10/25/18 Subjective:: Patient opens eyes and shakes head Y-N to answer questions. She withdraws to touch almost everywhere I touch. No family is present. Nurses report good results with dialysis last night, but she continues to require full report. Thoracentesis is scheduled for this morning. No active bleeding. CXR is much worse this morning. Reason For Visit: SEPSIS, UTI, AMS, ACUTE KIDNEY INJURY, DELIRIUM Physical Exam Vital Signs: Temp Pulse Resp BP Pulse Ox 96.4 F L 91 12 100/75 96 10/25/18 06:30 10/25/18 02:10 10/25/18 06:30 10/25/18 06:26 10/25/18 06:30 Intake & Output 10/24/18 10/25/18 10/26/18 06:59 06:59 06:59 Intake Total 3598 553 Output Total 800 3677 Balance 2798 -3124 Weight 95.1 kg 91.3 kg General appearance: PRESENT: well-developed, well-nourished Exam: Remains on BiPAP Head exam: PRESENT: normocephalic Respiratory exam: PRESENT: other - Upper airway noise throughout. Cardiovascular exam: PRESENT: other - Heart sounds obscured GI/Abdominal exam: PRESENT: distended, soft, tenderness Extremities exam: PRESENT: +2 edema Neurological exam: PRESENT: awake Focused psych exam: ABSENT: restlessness Skin exam: PRESENT: normal color Results Laboratory Results: 10/24/18 03:15 10/25/18 05:00 10/22/18 10/25/18 11:25 05:00 Sodium 145.7 H Potassium 3.9 Chloride 111 H Carbon Dioxide 24 Anion Gap 11 BUN 8 Creatinine 2.97 H Est GFR ( Amer) 20 L Est GFR (Non-Af Amer) 16 L Glucose 78 Calcium 10.3 H Magnesium 2.2 Blood Type B POSITIVE Antibody Screen NEGATIVE 09/29/18 09/29/18 09/29/18 10:44 10:44 12:59 Creatine Kinase Cancelled CK-MB (CK-2) Troponin I Cancelled 0.028 NT-Pro-B Natriuret Pep 09/29/18 09/29/18 09/29/18 12:59 15:30 15:30 Creatine Kinase 77 161 H CK-MB (CK-2) 2.69 Troponin I 0.028 NT-Pro-B Natriuret Pep 09/29/18 09/29/18 09/30/18 18:59 18:59 00:59 Creatine Kinase 201 H 197 H CK-MB (CK-2) 3.45 Troponin I 0.023 NT-Pro-B Natriuret Pep 09/30/18 10/01/18 10/03/18 00:59 04:13 04:50 Creatine Kinase CK-MB (CK-2) 2.94 Troponin I 0.021 NT-Pro-B Natriuret Pep 2270 H 3170 H 10/09/18 04:50 Creatine Kinase CK-MB (CK-2) Troponin I NT-Pro-B Natriuret Pep 630 Impressions: Head CT 10/03/18 00:00 IMPRESSION: CHRONIC CHANGES OF ATROPHY AND MICROVASCULAR ISCHEMIA. NO ACUTE PROCESS. EVIDENCE OF ACUTE STROKE: NO. KUB X-Ray 10/05/18 00:00 IMPRESSION: Nasogastric tube tip and side port in the stomach Abdomen/Pelvis CT 10/23/18 00:00 IMPRESSION: Marked right pleural effusion and compressive atelectasis or obstructive atelectasis of the right lung. Large left pleural effusion. Generalized ascites. Chest CT 10/23/18 00:00 IMPRESSION: Marked right pleural effusion and compressive atelectasis or obstructive atelectasis of the right lung. Large left pleural effusion. Generalized ascites. Chest X-Ray 10/25/18 07:00 IMPRESSION: Worsening includes near complete opacification/effusion of the right hemithorax. Assessment & Plan - Diagnosis (1) Septic shock Is this a current diagnosis for this admission?: Yes Plan: She remains on full support with pressers, BiPAP, etc. Repeat blood cultures have been negative (2) DIC (disseminated intravascular coagulation) Is this a current diagnosis for this admission?: Yes Plan: Coagulopathy continues. She has received multiple units or FFP and cryoprecipitate over the last week, but coags are not significantly improving. I explained to the family last night that this may be end stage liver failure due to her chronic alcohol use and if so, this will not be recoverable. I spoke with interventional radiology. They are OK with current levels and plans for thoracentesis today. No transfusions ordered today. (3) Metabolic encephalopathy Is this a current diagnosis for this admission?: Yes (4) Thrombocytopenia Is this a current diagnosis for this admission?: Yes Plan: Stable, continues. Transfuse only for bleeding, if needed. (5) Anemia Qualifiers: Anemia type: unspecified type Qualified Code(s): D64.9 - Anemia, un specified Is this a current diagnosis for this admission?: Yes Plan: Currently stable after transfusion 2 days ago. Continue to monitor.
[2018-10-25] MEDS: NYSTATIN TOPICAL POWDER 15 GM TP SCH ×2 (09:26→17:10)
[2018-10-25] MEDS: THIAMINE HCL 100 MG TABLET NG SCH (09:27)
[2018-10-25] MEDS: MIDODRINE HCL 5 MG TABLET NG SCH ×2 (09:27→21:52)
[2018-10-25] MEDS: SODIUM BICARBONATE 650 MG TABLET PO SCH ×2 (09:27→21:51)
[2018-10-25] MEDS: NORMAL SALINE 250 ML with FUROSEMIDE 250 MG IV PRN ×2 (09:34)
--- NOTE | 2018-10-25 11:39 | PDOC PROGRESS REPORT ---
Subjective Progress Note for:: 10/25/18 Subjective:: Patient remains to be on BiPAP. This morning she does not respond to any questioning although she is awake. Yesterday she had a good ultrafiltration and hemodialysis procedure. We were able to get ultrafiltration of 3200 mL. Her urine output is decreasing. She only had 477 mL of urine output yesterday. Patient is a scheduled for thoracentesis for her pleural effusion today. Reason For Visit: SEPSIS, UTI, AMS, ACUTE KIDNEY INJURY, DELIRIUM Physical Exam Vital Signs: Temp Pulse Resp BP Pulse Ox 96.1 F L 90 11 L 95/67 L 96 10/25/18 10:30 10/25/18 10:00 10/25/18 10:30 10/25/18 10:26 10/25/18 10:30 Intake & Output 10/24/18 10/25/18 10/26/18 06:59 06:59 06:59 Intake Total 3598 1825 50 Output Total 800 3677 105 Balance 2798 -1852 -55 Weight 95.1 kg 91.3 kg Exam: General appearance: PRESENT: On BiPAP, awake but not responsive. Head exam: PRESENT: atraumatic, normocephalic Eye exam: PRESENT: conjunctiva pale, PERRLA. ABSENT: scleral icterus Neck exam: ABSENT: JVD Respiratory exam: PRESENT: Diminished breath sounds. ABSENT: crackles, rales, rhonchi, unlabored, wheezes Cardiovascular exam: PRESENT: Regular rate rhythm -+S1, +S2. ABSENT: diastolic murmur, systolic murmur GI/Abdominal exam: PRESENT: normal bowel sounds, soft. ABSENT: guarding, mass, tenderness Extremities exam: Still has anasarca with slightly decreased upper extremity edema, left greater than the right; still with grade 2 bilateral lower extremity edema up to her hips and thighs and especially in the dependent portions of her buttocks Neurological exam: PRESENT: alert, awake, not responsive to questions Skin exam: PRESENT: dry, warm, Cardiovascular exam: PRESENT: +S1, +S2, systolic murmur GI/Abdominal exam: PRESENT: normal bowel sounds, soft. ABSENT: organomegaly, tenderness Results Laboratory Results: 10/24/18 03:15 10/25/18 05:00 10/22/18 10/25/18 11:25 05:00 Sodium 145.7 H Potassium 3.9 Chloride 111 H Carbon Dioxide 24 Anion Gap 11 BUN 8 Creatinine 2.97 H Est GFR ( Amer) 20 L Est GFR (Non-Af Amer) 16 L Glucose 78 Calcium 10.3 H Magnesium 2.2 Blood Type B POSITIVE Antibody Screen NEGATIVE 09/29/18 09/29/18 09/29/18 10:44 10:44 12:59 Creatine Kinase Cancelled CK-MB (CK-2) Troponin I Cancelled 0.028 NT-Pro-B Natriuret Pep 09/29/18 09/29/18 09/29/18 12:59 15:30 15:30 Creatine Kinase 77 161 H CK-MB (CK-2) 2.69 Troponin I 0.028 NT-Pro-B Natriuret Pep 09/29/18 09/29/18 09/30/18 18:59 18:59 00:59 Creatine Kinase 201 H 197 H CK-MB (CK-2) 3.45 Troponin I 0.023 NT-Pro-B Natriuret Pep 09/30/18 10/01/18 10/03/18 00:59 04:13 04:50 Creatine Kinase CK-MB (CK-2) 2.94 Troponin I 0.021 NT-Pro-B Natriuret Pep 2270 H 3170 H 10/09/18 04:50 Creatine Kinase CK-MB (CK-2) Troponin I NT-Pro-B Natriuret Pep 630 Impressions: Head CT 10/03/18 00:00 IMPRESSION: CHRONIC CHANGES OF ATROPHY AND MICROVASCULAR ISCHEMIA. NO ACUTE PROCESS. EVIDENCE OF ACUTE STROKE: NO. KUB X-Ray 10/05/18 00:00 IMPRESSION: Nasogastric tube tip and side port in the stomach Abdomen/Pelvis CT 10/23/18 00:00 IMPRESSION: Marked right pleural effusion and compressive atelectasis or obstructive atelectasis of the right lung. Large left pleural effusion. Generalized ascites. Chest CT 10/23/18 00:00 IMPRESSION: Marked right pleural effusion and compressive atelectasis or obstructive atelectasis of the right lung. Large left pleural effusion. Generalized ascites. Chest X-Ray 10/25/18 07:00 IMPRESSION: Worsening includes near complete opacification/effusion of the right hemithorax. Assessment & Plan - Diagnosis (1) Acute kidney injury Is this a current diagnosis for this admission?: Yes Plan: Secondary to ATN due to septic shock. Urine output continues to decline while she remains to have anasarca. She continues to be on Lasix drip and scheduled IV albumin. We will plan to do ultrafiltration and hemodialysis again tomorrow. (2) Acute tubular necrosis Is this a current diagnosis for this admission?: Yes (3) Sepsis Qualifiers: Sepsis type: sepsis due to unspecified organism Qualified Code(s): A41.9 - Sepsis, unspecified organism Is this a current diagnosis for this admission?: Yes (4) Escherichia coli urinary tract infection Is this a current diagnosis for this admission?: Yes (5) Metabolic encephalopathy Is this a current diagnosis for this admission?: Yes Plan: Multifactorial due to septic shock, infection, and alcohol withdrawal. (6) Metabolic acidosis Is this a current diagnosis for this admission?: Yes Plan: Resolved. (7) Respiratory failure with hypoxia and hypercapnia Qualifiers: Chronicity: acute Qualified Code(s): J96.01 - Acute respiratory failure with hypoxia; J96.02 - Acute respiratory failure with hypercapnia Is this a current diagnosis for this admission?: Yes Plan: Currently now on BiPAP. (8) Hypoalbuminemia Is this a current diagnosis for this admission?: Yes Plan: Currently on scheduled IV albumin infusion. (9) Nosocomial pneumonia Is this a current diagnosis for this admission?: Yes (10) Alcoholism Is this a current diagnosis for this admission?: Yes Plan: She is currently being given multivitamins with alcohol withdrawal protocol. Likely to be the cause of her possible end-stage liver disease. (11) Anemia Qualifiers: Anemia type: unspecified type Qualified Code(s): D64.9 - Anemia, unspecifie d Is this a current diagnosis for this admission?: Yes Plan: Multifactorial causes including sepsis and patient is currently has the DIC being followed by her ham smoker. Also strong consideration for possible liver disease. We will give her Procrit on dialysis. (12) DIC (disseminated intravascular coagulation) Is this a current diagnosis for this admission?: Yes Plan: Hematology following. Considering end-stage liver disease. (13) Hyperammonemia Is this a current diagnosis for this admission?: Yes Plan: The consensus in this patient may have advanced liver disease that is causing her coagulopathy and encephalopathy with elevated ammonia level. Dr. Higuera and Dr. Klein is been discussing this with the family. - Time Time with patient: 15-25 minutes
[2018-10-25 17:17] LABS: FLUID SOURCE ASCITES; FLUID TYPE PLEURAL
[2018-10-25 17:18] LABS: FLUID APPEARANCE CLEAR; FLUID COLOR YELLOW; FLUID VISCOSITY LIQUID
--- NOTE | 2018-10-25 17:42 | RADIOLOGY REPORT (SQ) ---
EXAM DESCRIPTION: U/S CHEST COMPLETED DATE/TIME: 10/25/2018 4:43 pm REASON FOR STUDY: pleural effusion COMPARISON: None. TECHNIQUE: Dynamic and static grayscale images acquired of the localized site of clinical concern an d recorded on PACS. Additional selected color Doppler and spectral images recorded. SITE OF CONCERN: Right pleural space. LIMITATIONS: None. FINDINGS: Insufficient fluid for safe thoracentesis. IMPRESSION: See above. TECHNICAL DOCUMENTATION: JOB ID: [id number] [employer]- All Rights Reserved Reading location - IP/workstation name: [email or web address]
--- NOTE | 2018-10-25 19:38 | PDOC PROGRESS REPORT ---
Subjective Progress Note for:: 10/25/18 Subjective:: Patient is poorly responsive, I had another prolonged discussion with patient spouse and children about her prognosis and plan of care for this patient. She continues to do poorly clinically, she underwent abdominal paracentesis today about 1800 cc of peritoneal fluid was collected she has anasarca with fluid everywhere including pleural space, peritoneal cavity, tremendous extremity edema, she has advanced liver disease with stigmata of liver dysfunction includ ing persistent hypotension, coagulopathy, hyperammonemia, hypoalbuminemia, on scheduled intravenous albumin despite that there is still severe anasarca, overall prognosis is poor. Family still continues to have supportive care maintained including noninvasive positive pressure ventilation with BiPAP, patient is on hemodialysis, Reason For Visit: SEPSIS, UTI, AMS, ACUTE KIDNEY INJURY, DELIRIUM Physical Exam Vital Signs: Temp Pulse Resp BP Pulse Ox 97.5 F 93 14 116/71 94 10/25/18 18:00 10/25/18 18:00 10/25/18 18:00 10/25/18 18:00 10/25/18 18:00 Intake & Output 10/24/18 10/25/18 10/26/18 06:59 06:59 06:59 Intake Total 3598 1825 1442 Output Total 800 3677 198 Balance 2798 -1852 1244 Weight 95.1 kg 91.3 kg General appearance: PRESENT: other - Patient is on BiPAP Respiratory exam: PRESENT: rhonchi Cardiovascular exam: PRESENT: +S1, +S2 GI/Abdominal exam: PRESENT: soft Extremities exam: PRESENT: pedal edema Results Laboratory Results: 10/24/18 03:15 10/25/18 05:00 10/25/18 10/25/18 10/25/18 05:00 15:50 18:00 Sodium 145.7 H Potassium 3.9 Chloride 111 H Carbon Dioxide 24 Anion Gap 11 BUN 8 Creatinine 2.97 H Est GFR ( Amer) 20 L Est GFR (Non-Af Amer) 16 L Glucose 78 Calcium 10.3 H Magnesium 2.2 Total Protein 5.8 L Fluid Type PLEURAL Fluid Source ASCITES Fluid Color YELLOW Fluid Appearance CLEAR Fluid Viscosity LIQUID Fluid WBC 145 Fluid RBC 182 09/29/18 09/29/18 09/29/18 10:44 10:44 12:59 Creatine Kinase Cancelled CK-MB (CK-2) Troponin I Cancelled 0.028 NT-Pro-B Natriuret Pep 09/29/18 09/29/18 09/29/18 12:59 15:30 15:30 Creatine Kinase 77 161 H CK-MB (CK-2) 2.69 Troponin I 0.028 NT-Pro-B Natriuret Pep 09/29/18 09/29/18 09/30/18 18:59 18:59 00:59 Creatine Kinase 201 H 197 H CK-MB (CK-2) 3.45 Troponin I 0.023 NT-Pro-B Natriuret Pep 09/30/18 10/01/18 10/03/18 00:59 04:13 04:50 Creatine Kinase CK-MB (CK-2) 2.94 Troponin I 0.021 NT-Pro-B Natriuret Pep 2270 H 3170 H 10/09/18 04:50 Creatine Kinase CK-MB (CK-2) Troponin I NT-Pro-B Natriuret Pep 630 Impressions: Head CT 10/03/18 00:00 IMPRESSION: CHRONIC CHANGES OF ATROPHY AND MICROVASCULAR ISCHEMIA. NO ACUTE PROCESS. EVIDENCE OF ACUTE STROKE: NO. KUB X-Ray 10/05/18 00:00 IMPRESSION: Nasogastric tube tip and side port in the stomach Abdomen/Pelvis CT 10/23/18 00:00 IMPRESSION: Marked right pleural effusion and compressive atelectasis or obstructive atelectasis of the right lung. Large left pleural effusion. Generalized ascites. Chest CT 10/23/18 00:00 IMPRESSION: Marked right pleural effusion and compressive atelectasis or obstructive atelectasis of the right lung. Large left pleural effusion. Generalized ascites. Chest Ultrasound 10/25/18 00:08 IMPRESSION: See above. Chest X-Ray 10/25/18 07:00 IMPRESSION: Worsening includes near complete opacification/effusion of the right hemithorax. Assessment & Plan - Diagnosis (1) Septic shock Is this a current diagnosis for this admission?: Yes (2) UTI (urinary tract infection) Qualifiers: Urinary tract infection type: site unspecified Hematuria presence: with hematuria Qualified Code(s): N39.0 - Urinary tract infection, site not specified; R31.9 - Hematuria, unspecified Is this a current diagnosis for this admission?: Yes (3) Hypokalemia Is this a current diagnosis for this admission?: Yes (4) Hypomagnesemia Is this a current diagnosis for this admission?: Yes (5) Alcohol abuse Is this a current diagnosis for this admission?: Yes (6) Metabolic encephalopathy Is this a current diagnosis for this admission?: Yes (7) Hyperammonemia Is this a current diagnosis for this admission?: Yes (8) Alcohol withdrawal Qualifiers: Complication of substance-induced condition: with delirium Qualified Code(s): F10.231 - Alcohol dependence with withdrawal delirium Is this a current diagnosis for this admission?: Yes (9) Respiratory failure with hypoxia and hypercapnia Qualifiers: Chronicity: acute Qualified Code(s): J96.01 - Acute respiratory failure with hypoxia; J96.02 - Acute respiratory failure with hypercapnia Is this a current diagnosis for this admission?: Yes (10) Nosocomial pneumonia Is this a current diagnosis for this admission?: Yes (11) Hypotension Qualifiers: Hypotension type: unspecified hypotension type Qualified Code(s): I95.9 - Hypotension, unspecified Is this a current diagnosis for this admission?: Yes Plan: Continue midodrine (12) Gastroparesis Is this a current diagnosis for this admission?: Yes (13) Acute kidney injury Is this a current diagnosis for this admission?: Yes (14) DIC (disseminated intravascular coagulation) Is this a current diagnosis for this admission?: Yes (15) Lung collapse Is this a current diagnosis for this admission?: Yes (16) Liver cirrhosis Qualifiers: Hepatic cirrhosis type: alcoholic cirrhosis Ascites presence: with ascites Qualified Code(s): K70.31 - Alcoholic cirrhosis of liver with ascites Is this a current diagnosis for this admission?: Yes Plan: He has advanced liver disease with segmental of liver dysfunction (17) Hypoalbuminemia Is this a current diagnosis for this admission?: Yes Plan: Patient continues to require scheduled IV albumin
[2018-10-26] MEDS: INSULIN LISPRO 100 UNIT/ML 3 ML VIAL SUBCUT SCH ×4 (00:08→18:45)
[2018-10-26] MEDS: ALBUMIN HUMAN 12.5 GM/50 ML RTUINJ IV SCH ×3 (00:08→12:22)
[2018-10-26] MEDS: IPRATROPIUM/ALBUTEROL 0.5-2.5 MG/3 ML AMPUL NEB SCH ×4 (02:17→20:52)
[2018-10-26 04:48] LABS: ARTERIAL BLOOD BASE EXCESS -0.6 mmol/L; ARTERIAL BLOOD H2CO3 1.69 mmol/L (1.05-1.35); ARTERIAL BLOOD HCO3 26.4 mmol/L (20-24); ARTERIAL BLOOD O2 SATURATION 94.5 % (94-98); ARTERIAL BLOOD PCO2 56.3 mmHg (35-45); ARTERIAL BLOOD PH 7.29 (7.35-7.45); ARTERIAL BLOOD PO2 81.4 mmHg (80-100); ARTERIAL BLOOD TOTAL CO2 28.1 mmol/L (21-25)
[2018-10-26 04:53] LABS: ARTERIAL BLOOD FIO2 60%
[2018-10-26 04:57] LABS: INTERNATIONAL RATION (INR) 1.48; PROTHROMBIN TIME 18.7 SEC (11.4-15.4)
[2018-10-26] MEDS ORDERED: NORMAL SALINE 1000 ML 1,000 ML IV PRN (05:00)
[2018-10-26] MEDS ORDERED: EPOETIN ALFA INJ 20000 UNIT/1 ML VIAL (RENAL) IV PRN (05:00)
[2018-10-26 05:05] LABS: ANION GAP 10 (5-19); BLOOD UREA NITROGEN 8 mg/dL (7-20); CALCIUM 10.6 mg/dL (8.4-10.2); CARBON DIOXIDE 25 mmol/L (22-30); CHLORIDE 111 mmol/L (98-107); GLUCOSE 113 mg/dL (75-110); POTASSIUM 3.9 mmol/L (3.6-5.0); SODIUM 145.9 mmol/L (137-145)
[2018-10-26 05:07] LABS: ABSOLUTE EOSINOPHILS # (AUTO) 0.6 10^3/uL (0.0-0.6); ABSOLUTE LYMPHOCYTES (AUTO) 1.4 10^3/uL (0.5-4.7); ABSOLUTE MONOCYTES (AUTO) 1.2 10^3/uL (0.1-1.4); ABSOLUTE NEUT (AUTO) 9.5 10^3/uL (1.7-8.2); BASOPHILS % (AUTO) 0.3 % (0-2); EOSINOPHILS % (AUTO) 4.9 % (0-6); HEMATOCRIT 27.5 % (36.0-47.0); MEAN CORPUSCULAR HEMOGLOBIN 32.5 pg (27.0-33.4); MEAN CORPUSCULAR HGB CONC 32.8 g/dL (32.0-36.0); MONOCYTES % (AUTO) 9.4 % (3-13); RED BLOOD COUNT 2.78 10^6/uL (3.72-5.28); RED CELL DISTRIBUTION WIDTH 23.6 % (11.5-14.0); SEGMENTED NEUTROPHILS % (AUTO) 74.4 % (42-78); TOTAL CELLS COUNTED % (AUTO) 100 %; WHITE BLOOD COUNT 12.7 10^3/uL (4.0-10.5)
[2018-10-26 05:25] LABS: MEAN CORPUSCULAR VOLUME 99 fl (80-97)
[2018-10-26 05:30] LABS: PLATELET COUNT 74 10^3/uL (150-450)
[2018-10-26] MEDS: LACTOBACILLUS ACIDOPHILUS 250 MG TAB NG SCH ×2 (05:32→17:31)
--- NOTE | 2018-10-26 06:32 | RADIOLOGY REPORT (SQ) ---
EXAM DESCRIPTION: XR CHEST 1 VIEW COMPLETED DATE/TME: 10/26/2018 06:00 CLINICAL HISTORY: 53 years Female, pna COMPARISON: One day prior. NUMBER OF VIEWS/TECHNIQUE: 1/AP FINDINGS: Worsening includes complete white out of the right hemithorax. Extensive mixed airspace and interstitial opacities of the left lung. Moderate left basilar opacity-effusion. Likely adequate appearing enteric tube partially obscured. Adequate appearing right jugular central line. Partially obscured cardiac silhouette. No pneumothorax. Stable bony thorax. IMPRESSION: Worsening includes complete white out of the right hemithorax. Differential diagnosis includes effusion, hemorrhage/contusion, collapse, and infectious/neoplastic processes.
[2018-10-26] MEDS: NORMAL SALINE 1000 ML 1,000 ML with POTASSIUM CHLORIDE 20 MEQ, MAGNESIUM SULFATE 8 MEQ,... IV SCH ×4 (08:03)
[2018-10-26] MEDS: ACETYLCYSTEINE 20% SOLN 800 MG/4 ML VIAL.NEB NEB SCH ×2 (08:16→20:52)
--- NOTE | 2018-10-26 08:21 | RADIOLOGY REPORT (SQ) ---
EXAM DESCRIPTION: U/S ABD PARACENTESIS COMPLETED DATE/TIME: 10/25/2018 4:41 pm REASON FOR STUDY: ascities COMPARISON Right upper quadrant ultrasound 11/29/2017 CT abdomen and pelvis 10/23/2018 LIMITATIONS: None. PROCEDURE: After obtaining informed consent, procedure was performed in the ICU. Ultrasound was us ed to identify a prominent pocket of ascites in the left lower quadrant. An appropriate access site was selected. The patient was prepped and draped in usual sterile fashion. The access site was ane sthetized with 6 mL 1% lidocaine. A Cnse-U-[place] needle was advanced into the fluid. After aspir ation of fluid the needle, the catheter was advanced off the needle into the fluid. A total of 1,800 mL of clear straw-colored fluid was removed. The patient tolerated the procedure well left the depar tment in satisfactory condition. Fluid was sent for testing IMPRESSION: Successful ultrasound-guided paracentesis COMMENT: Patient medication list reviewed: Yes- Quality ID# [id number]:Eligible professional attests to doc umenting in the medical record they obtained, updated, or reviewed the patient's current medications. TECHNICAL DOCUMENTATION: JOB ID: [id number] [employer]- All Rights Reserved Reading location - IP/workstation name: [email or web address]
--- NOTE | 2018-10-26 08:24 | PDOC PROGRESS REPORT ---
Subjective Progress Note for:: 10/26/18 Subjective:: No acute changes overnight, patient remains poorly responsive. Reason For Visit: SEPSIS, UTI, AMS, ACUTE KIDNEY INJURY, DELIRIUM Physical Exam Vital Signs: Temp Pulse Resp BP Pulse Ox 97.0 F 89 15 119/81 97 10/26/18 06:00 10/26/18 08:19 10/26/18 08:19 10/26/18 05:57 10/26/18 08:19 Intake & Output 10/25/18 10/26/18 10/27/18 06:59 06:59 06:59 Intake Total 1825 2241 Output Total 3677 378 Balance -1852 1863 Weight 91.3 kg 89.9 kg Results Laboratory Results: 10/26/18 04:20 10/26/18 04:20 10/25/18 10/25/18 10/26/18 15:50 18:00 04:20 WBC RBC Hgb Hct MCV MCH MCHC RDW Plt Count Seg Neutrophils % Lymphocytes % Monocytes % Eosinophils % Basophils % Absolute Neutrophils Absolute Lymphocytes Absolute Monocytes Absolute Eosinophils Absolute Basophils Carbonic Acid 1.69 H HCO3/H2CO3 Ratio 15:1 ABG pH 7.29 L ABG pCO2 56.3 H ABG pO2 81.4 ABG HCO3 26.4 H ABG O2 Saturation 94.5 ABG Base Excess -0.6 FiO2 60% Sodium Potassium Chloride Carbon Dioxide Anion Gap BUN Creatinine Est GFR ( Amer) Est GFR (Non-Af Amer) Glucose Calcium Magnesium Total Protein 5.8 L Fluid Type PLEURAL Fluid Source ASCITES Fluid Color YELLOW Fluid Appearance CLEAR Fluid Viscosity LIQUID Fluid WBC 145 Fluid RBC 182 10/26/18 10/26/18 04:20 04:20 WBC 12.7 H RBC 2.78 L Hgb 9.0 L Hct 27.5 L MCV 99 H D MCH 32.5 MCHC 32.8 RDW 23.6 H Plt Count 74 L Seg Neutrophils % 74.4 Lymphocytes % 11.0 L Monocytes % 9.4 Eosinophils % 4.9 Basophils % 0.3 Absolute Neutrophils 9.5 H Absolute Lymphocytes 1.4 Absolute Monocytes 1.2 Absolute Eosinophils 0.6 Absolute Basophils 0.0 Carbonic Acid HCO3/H2CO3 Ratio ABG pH ABG pCO2 ABG pO2 ABG HCO3 ABG O2 Saturation ABG Base Excess FiO2 Sodium 145.9 H Potassium 3.9 Chloride 111 H Carbon Dioxide 25 Anion Gap 10 BUN 8 Creatinine 3.20 H Est GFR ( Amer) 18 L Est GFR (Non-Af Amer) 15 L Glucose 113 H Calcium 10.6 H Magnesium 2.3 Total Protein Fluid Type Fluid Source Fluid Color Fluid Appearance Fluid Viscosity Fluid WBC Fluid RBC 09/29/18 09/29/18 09/29/18 10:44 10:44 12:59 Creatine Kinase Cancelled CK-MB (CK-2) Troponin I Cancelled 0.028 NT-Pro-B Natriuret Pep 09/29/18 09/29/18 09/29/18 12:59 15:30 15:30 Creatine Kinase 77 161 H CK-MB (CK-2) 2.69 Troponin I 0.028 NT-Pro-B Natriuret Pep 09/29/18 09/29/18 09/30/18 18:59 18:59 00:59 Creatine Kinase 201 H 197 H CK-MB (CK-2) 3.45 Troponin I 0.023 NT-Pro-B Natriuret Pep 09/30/18 10/01/18 10/03/18 00:59 04:13 04:50 Creatine Kinase CK-MB (CK-2) 2.94 Troponin I 0.021 NT-Pro-B Natriuret Pep 2270 H 3170 H 10/09/18 04:50 Creatine Kinase CK-MB (CK-2) Troponin I NT-Pro-B Natriuret Pep 630 Impressions: Head CT 10/03/18 00:00 IMPRESSION: CHRONIC CHANGES OF ATROPHY AND MICROVASCULAR ISCHEMIA. NO ACUTE PROCESS. EVIDENCE OF ACUTE STROKE: NO. KUB X-Ray 10/05/18 00:00 IMPRESSION: Nasogastric tube tip and side port in the stomach Abdomen/Pelvis CT 10/23/18 00:00 IMPRESSION: Marked right pleural effusion and compressive atelectasis or obstructive atelectasis of the right lung. Large left pleural effusion. Generalized ascites. Chest CT 10/23/18 00:00 IMPRESSION: Marked right pleural effusion and compressive atelectasis or obstructive atelectasis of the right lung. Large left pleural effusion. Generalized ascites. Chest Ultrasound 10/25/18 00:08 IMPRESSION: See above. Chest X-Ray 10/26/18 06:00 IMPRESSION: Worsening includes complete white out of the right hemithorax. Differential diagnosis includes effusion, hemorrhage/contusion, collapse, and infectious/neoplastic processes. Assessment & Plan - Diagnosis (1) DIC (disseminated intravascular coagulation) Is this a current diagnosis for this admission?: Yes Plan: Will continue to remain severe. Unlikely to improve. We will need to keep replacing platelets to keep counts greater than 10, and if patient actively bleeding may need cryoprecipitate or FFP. (2) Anemia Qualifiers: Anemia type: other cause Other causes of anemia: chronic disease, other Qualified Code(s): D63.8 - Anemia in other chronic diseases classified elsewhere Is this a current diagnosis for this admission?: Yes Plan: Most likely secondary to ICU stay, will remain to be low. No need for transfusion as of yet. - Time Time Spent with patient: 25-34 minutes Disposition: We will follow peripherally, Dr. Klein is out of town for the next few days, will follow her counts and make recommendations if needed. - Inpatient Certification Based on my medical assessment, after consideration of the patient's comorbidities, presenting symptoms, or acuity I expect that the services needed warrant INPATIENT care.: Yes I certify that my determination is in accordance with my understanding of Medicare's requirements for reasonable and necessary INPATIENT services [42 CFR 412.3e].: Yes Medical Necessity: Risk of Complication if Not Cared For in Hospital
[2018-10-26] MEDS ORDERED: PROPOFOL 1,000 MG/100 ML INFUS..BTL IV ONE (09:34)
[2018-10-26] MEDS ORDERED: PROPOFOL INJ 200 MG/20 ML VIAL IV ONE (10:02)
[2018-10-26] MEDS: PROPOFOL 1,000 MG/100 ML INFUS..BTL IV PRN ×3 (10:10→21:38)
[2018-10-26] MEDS ORDERED: ACETYLCYSTEINE 20% SOLN 800 MG/4 ML VIAL.NEB ONE (10:29)
--- NOTE | 2018-10-26 10:54 | RADIOLOGY REPORT (SQ) ---
EXAM DESCRIPTION: CHEST SINGLE VIEW COMPLETED DATE/TIME: 10/26/2018 10:25 am REASON FOR STUDY: ET Tube Placement COMPARISON: CT chest 10/23/2018 Chest films 10/21/2018, 10/25/2018, 10/26/2018 EXAM PARAMETERS: NUMBER OF VIEWS: One view. TECHNIQUE: Single frontal radiographic view of the chest acquired. RADIATION DOSE: NA LIMITATIONS: None. FINDINGS: LUNGS AND PLEURA: Complete opacification of the right hemithorax from right lung collapse and consolidation with right pleural effusion. This is unchanged from CT exam 10/23/2018. Hazy opacity over the left lower chest likely from residual left pleural effusion. Patchy airspace d isease in the left upper lobe is unchanged. No pneumothorax MEDIASTINUM AND HILAR STRUCTURES: Right hilum not well seen. Stable left hilar fullness HEART AND VASCULAR STRUCTURES: Cardiac silhouette size not well seen. Left lung pulmonary vascular p rominence BONES: No acute findings. HARDWARE: Endotracheal tube tip 5 cm above the jana. Nasogastric tube tip and side port in the sto mach. Right jugular central line tip superior vena cava OTHER: No other significant finding. IMPRESSION: Tubes and lines in good positioning. No change compared to CT chest 10/23/2018 TECHNICAL DOCUMENTATION: JOB ID: [id number] [employer]- All Rights Reserved Reading location - IP/workstation name: [email or web address]
[2018-10-26] MEDS: MIDODRINE HCL 5 MG TABLET NG SCH ×2 (10:57→22:24)
[2018-10-26] MEDS: THIAMINE HCL 100 MG TABLET NG SCH (10:58)
[2018-10-26] MEDS: SODIUM BICARBONATE 650 MG TABLET PO SCH ×2 (10:58→22:25)
[2018-10-26] MEDS: NORMAL SALINE 250 ML with FUROSEMIDE 250 MG IV PRN ×2 (10:59)
[2018-10-26] MEDS: NYSTATIN TOPICAL POWDER 15 GM TP SCH ×2 (11:35→17:31)
[2018-10-26 12:24] LABS: FLUID APPEARANCE HAZY; FLUID COLOR PINK; FLUID TYPE BRONCHIAL WASH
[2018-10-26 12:25] LABS: FLUID VISCOSITY LIQUID
[2018-10-26 12:38] LABS: FLUID SOURCE LUNG
[2018-10-26] MEDS ORDERED: PHENYLEPHRINE HCL INJ/PF 10 MG/1 ML SDV ONE (14:30)
[2018-10-26] MEDS: DEXTROSE 5%-WATER 250 ML with PHENYLEPHRINE HCL 40 MG IV PRN ×2 (14:34)
--- NOTE | 2018-10-26 16:32 | PDOC PROGRESS REPORT ---
Subjective Progress Note for:: 10/26/18 Subjective:: Patient was seen by the bedside, she underwent bronchoscopy today presently reintubated on mechanical ventilation. I again had a long discussion with the patient spouse and children, I gave them the update of her condition the fact that she underwent bronchoscopy today and also the fact that she is intubated she is still presently on transfer list to [facility] but she has not been a bed yet though she has been accepted in transfer Reason For Visit: SEPSIS, UTI, AMS, ACUTE KIDNEY INJURY, DELIRIUM Physical Exam Vital Signs: Temp Pulse Resp BP Pulse Ox 96.3 F L 86 14 147/94 H 97 10/26/18 14:00 10/26/18 14:00 10/26/18 14:00 10/26/18 14:00 10/26/18 14:00 Intake & Output 10/25/18 10/26/18 10/27/18 06:59 06:59 06:59 Intake Total 1825 2491 117 Output Total 3677 378 200 Balance -1852 2113 -83 Weight 91.3 kg 89.9 kg Eye exam: PRESENT: PERRLA Respiratory exam: PRESENT: decreased breath sounds Cardiovascular exam: PRESENT: +S1, +S2 GI/Abdominal exam: PRESENT: soft Results Laboratory Results: 10/26/18 04:20 10/26/18 04:20 10/25/18 10/25/18 10/26/18 15:50 18:00 04:20 WBC RBC Hgb Hct MCV MCH MCHC RDW Plt Count Seg Neutrophils % Lymphocytes % Monocytes % Eosinophils % Basophils % Absolute Neutrophils Absolute Lymphocytes Absolute Monocytes Absolute Eosinophils Absolute Basophils Carbonic Acid 1.69 H HCO3/H2CO3 Ratio 15:1 ABG pH 7.29 L ABG pCO2 56.3 H ABG pO2 81.4 ABG HCO3 26.4 H ABG O2 Saturation 94.5 ABG Base Excess -0.6 FiO2 60% Sodium Potassium Chloride Carbon Dioxide Anion Gap BUN Creatinine Est GFR ( Amer) Est GFR (Non-Af Amer) Glucose Calcium Magnesium Total Protein 5.8 L Triglycerides Fluid Type PLEURAL Fluid Source ASCITES Fluid Color YELLOW Fluid Appearance CLEAR Fluid Viscosity LIQUID Fluid WBC 145 Fluid RBC 182 10/26/18 10/26/18 10/26/18 04:20 04:20 04:20 WBC 12.7 H RBC 2.78 L Hgb 9.0 L Hct 27.5 L MCV 99 H D MCH 32.5 MCHC 32.8 RDW 23.6 H Plt Count 74 L Seg Neutrophils % 74.4 Lymphocytes % 11.0 L Monocytes % 9.4 Eosinophils % 4.9 Basophils % 0.3 Absolute Neutrophils 9.5 H Absolute Lymphocytes 1.4 Absolute Monocytes 1.2 Absolute Eosinophils 0.6 Absolute Basophils 0.0 Carbonic Acid HCO3/H2CO3 Ratio ABG pH ABG pCO2 ABG pO2 ABG HCO3 ABG O2 Saturation ABG Base Excess FiO2 Sodium 145.9 H Potassium 3.9 Chloride 111 H Carbon Dioxide 25 Anion Gap 10 BUN 8 Creatinine 3.20 H Est GFR ( Amer) 18 L Est GFR (Non-Af Amer) 15 L Glucose 113 H Calcium 10.6 H Magnesium 2.3 Total Protein Triglycerides 84 Fluid Type Fluid Source Fluid Color Fluid Appearance Fluid Viscosity Fluid WBC Fluid RBC 10/26/18 10:47 WBC RBC Hgb Hct MCV MCH MCHC RDW Plt Count Seg Neutrophils % Lymphocytes % Monocytes % Eosinophils % Basophils % Absolute Neutrophils Absolute Lymphocytes Absolute Monocytes Absolute Eosinophils Absolute Basophils Carbonic Acid HCO3/H2CO3 Ratio ABG pH ABG pCO2 ABG pO2 ABG HCO3 ABG O2 Saturation ABG Base Excess FiO2 Sodium Potassium Chloride Carbon Dioxide Anion Gap BUN Creatinine Est GFR ( Amer) Est GFR (Non-Af Amer) Glucose Calcium Magnesium Total Protein Triglycerides Fluid Type BRONCHIAL WASH Fluid Source LUNG Fluid Color PINK Fluid Appearance HAZY Fluid Viscosity LIQUID Fluid WBC 656 Fluid RBC 5388 09/29/18 09/29/18 09/29/18 10:44 10:44 12:59 Creatine Kinase Cancelled CK-MB (CK-2) Troponin I Cancelled 0.028 NT-Pro-B Natriuret Pep 09/29/18 09/29/18 09/29/18 12:59 15:30 15:30 Creatine Kinase 77 161 H CK-MB (CK-2) 2.69 Troponin I 0.028 NT-Pro-B Natriuret Pep 09/29/18 09/29/18 09/30/18 18:59 18:59 00:59 Creatine Kinase 201 H 197 H CK-MB (CK-2) 3.45 Troponin I 0.023 NT-Pro-B Natriuret Pep 09/30/18 10/01/18 10/03/18 00:59 04:13 04:50 Creatine Kinase CK-MB (CK-2) 2.94 Troponin I 0.021 NT-Pro-B Natriuret Pep 2270 H 3170 H 10/09/18 04:50 Creatine Kinase CK-MB (CK-2) Troponin I NT-Pro-B Natriuret Pep 630 Impressions: Head CT 10/03/18 00:00 IMPRESSION: CHRONIC CHANGES OF ATROPHY AND MICROVASCULAR ISCHEMIA. NO ACUTE PROCESS. EVIDENCE OF ACUTE STROKE: NO. KUB X-Ray 10/05/18 00:00 IMPRESSION: Nasogastric tube tip and side port in the stomach Abdomen/Pelvis CT 10/23/18 00:00 IMPRESSION: Marked right pleural effusion and compressive atelectasis or obstructive atelectasis of the right lung. Large left pleural effusion. Generalized ascites. Chest CT 10/23/18 00:00 IMPRESSION: Marked right pleural effusion and compressive atelectasis or obstructive atelectasis of the right lung. Large left pleural effusion. Generalized ascites. Chest Ultrasound 10/25/18 00:08 IMPRESSION: See above. Paracentesis Ultrasound 10/25/18 12:53 IMPRESSION: Successful ultrasound-guided paracentesis Chest X-Ray 10/26/18 10:00 IMPRESSION: Tubes and lines in good positioning. No change compared to CT chest 10/23/2018 Assessment & Plan - Diagnosis (1) Septic shock Is this a current diagnosis for this admission?: Yes (2) UTI (urinary tract infection) Qualifiers: Urinary tract infection type: site unspecified Hematuria presence: with hematuria Qualified Code(s): N39.0 - Urinary tract infection, site not specified; R31.9 - Hematuria, unspecified Is this a current diagnosis for this admission?: Yes (3) Hypokalemia Is this a current diagnosis for this admission?: Yes (4) Hypomagnesemia Is this a current diagnosis for this admission?: Yes (5) Alcohol abuse Is this a current diagnosis for this admission?: Yes (6) Metabolic encephalopathy Is this a current diagnosis for this admission?: Yes (7) Hyperammonemia Is this a current diagnosis for this admission?: Yes (8) Alcohol withdrawal Qualifiers: Complication of substance-induced condition: with delirium Qualified Code(s): F10.231 - Alcohol dependence with withdrawal delirium Is this a current diagnosis for this admission?: Yes (9) Respiratory failure with hypoxia and hypercapnia Qualifiers: Chronicity: acute Qualified Code(s): J96.01 - Acute respiratory failure with hypoxia; J96.02 - Acute respiratory failure with hypercapnia Is this a current diagnosis for this admission?: Yes Plan: Patient is back on mechanical ventilation she is status post bronchoscopy (10) Nosocomial pneumonia Is this a current diagnosis for this admission?: Yes (11) Hypotension Qualifiers: Hypotension type: unspecified hypotension type Qualified Code(s): I95.9 - Hypotension, unspecified Is this a current diagnosis for this admission?: Yes (12) Gastroparesis Is this a current diagnosis for this admission?: Yes (13) Acute kidney injury Is this a current diagnosis for this admission?: Yes Plan: She had hemodialysis today (14) DIC (disseminated intravascular coagulation) Is this a current diagnosis for this admission?: Yes Plan: The coagulopathy is from liver disease not truly a DIC (15) Lung collapse Is this a current diagnosis for this admission?: Yes (16) Liver cirrhosis Qualifiers: Hepatic cirrhosis type: alcoholic cirrhosis Ascites presence: with ascites Qualified Code(s): K70.31 - Alcoholic cirrhosis of liver with ascites Is this a current diagnosis for this admission?: Yes (17) Hypoalbuminemia Is this a current diagnosis for this admission?: Yes Plan: Prognosis remains poor in this patient
--- NOTE | 2018-10-26 17:50 | PDOC PROGRESS REPORT ---
Subjective Progress Note for:: 10/26/18 Subjective:: I saw the patient during dialysis this afternoon. Patient is currently reintubated her bronchoscopy was done this morning. She is also on sedation. We are doing ultrafiltration for 2 hours and hemodialysis for 1 hour. Patient required Beny-Synephrine drip to maintain blood pressure during dialysis treatment. Clinically the patient is not showing any signs of improvement and actually showing some decline. She is becoming more oliguric and despite her attempt to do ultrafiltration through dialysis she continues to have third spacing with increasing anasarca. She is still on the waiting list for [facility]. Family continues to indicate that they want to do everything for the patient. Reason For Visit: SEPSIS, UTI, AMS, ACUTE KIDNEY INJURY, DELIRIUM Physical Exam Vital Signs: Temp Pulse Resp BP Pulse Ox 96.8 F L 87 14 150/95 H 95 10/26/18 16:00 10/26/18 16:00 10/26/18 16:00 10/26/18 16:00 10/26/18 16:19 Intake & Output 10/25/18 10/26/18 10/27/18 06:59 06:59 06:59 Intake Total 1825 2491 203 Output Total 3677 378 250 Balance -1852 2113 -47 Weight 91.3 kg 89.9 kg Vitals during dialysis: Blood pressure 144/96, heart rate of 83, respiration of 14 and oxygenation of 96% on mechanical ventilation with FiO2 of 45%. Her blood flow rate around 250 MR per minute and her dialysate flow rate of 500 mL/min. Exam: General appearance: PRESENT: Currently intubated and sedated Head exam: PRESENT: atraumatic, normocephalic Eye exam: PRESENT: Eyes closed and face is slightly swollen Neck exam: ABSENT: JVD Respiratory exam: PRESENT: Coarse breath sounds. ABSENT: crackles, rales, rhonchi, unlabored, wheezes Cardiovascular exam: PRESENT: Regular rate rhythm -+S1, +S2. ABSENT: diastolic murmur, systolic murmur GI/Abdominal exam: PRESENT: normal bowel sounds, soft. ABSENT: guarding, mass, tenderness Extremities exam: Increased grade 2 bilateral lower extremity pitting edema to her thighs buttocks and dependent portions of her body which seems to have gotten worse for the last 24 hours, left upper extremity edema which seems to have also increased, only minimal right upper extremity edema Neurological exam: PRESENT: Currently sedated. Skin exam: PRESENT: dry, warm, Cardiovascular exam: PRESENT: +S1, +S2, systolic murmur GI/Abdominal exam: PRESENT: normal bowel sounds, soft. ABSENT: organomegaly, tenderness Results Laboratory Results: 10/26/18 04:20 10/26/18 04:20 10/25/18 10/25/18 10/26/18 15:50 18:00 04:20 WBC RBC Hgb Hct MCV MCH MCHC RDW Plt Count Seg Neutrophils % Lymphocytes % Monocytes % Eosinophils % Basophils % Absolute Neutrophils Absolute Lymphocytes Absolute Monocytes Absolute Eosinophils Absolute Basophils Carbonic Acid 1.69 H HCO3/H2CO3 Ratio 15:1 ABG pH 7.29 L ABG pCO2 56.3 H ABG pO2 81.4 ABG HCO3 26.4 H ABG O2 Saturation 94.5 ABG Base Excess -0.6 FiO2 60% Sodium Potassium Chloride Carbon Dioxide Anion Gap BUN Creatinine Est GFR ( Amer) Est GFR (Non-Af Amer) Glucose Calcium Magnesium Total Protein 5.8 L Triglycerides Fluid Type PLEURAL Fluid Source ASCITES Fluid Color YELLOW Fluid Appearance CLEAR Fluid Viscosity LIQUID Fluid WBC 145 Fluid RBC 182 10/26/18 10/26/18 10/26/18 04:20 04:20 04:20 WBC 12.7 H RBC 2.78 L Hgb 9.0 L Hct 27.5 L MCV 99 H D MCH 32.5 MCHC 32.8 RDW 23.6 H Plt Count 74 L Seg Neutrophils % 74.4 Lymphocytes % 11.0 L Monocytes % 9.4 Eosinophils % 4.9 Basophils % 0.3 Absolute Neutrophils 9.5 H Absolute Lymphocytes 1.4 Absolute Monocytes 1.2 Absolute Eosinophils 0.6 Absolute Basophils 0.0 Carbonic Acid HCO3/H2CO3 Ratio ABG pH ABG pCO2 ABG pO2 ABG HCO3 ABG O2 Saturation ABG Base Excess FiO2 Sodium 145.9 H Potassium 3.9 Chloride 111 H Carbon Dioxide 25 Anion Gap 10 BUN 8 Creatinine 3.20 H Est GFR ( Amer) 18 L Est GFR (Non-Af Amer) 15 L Glucose 113 H Calcium 10.6 H Magnesium 2.3 Total Protein Triglycerides 84 Fluid Type Fluid Source Fluid Color Fluid Appearance Fluid Viscosity Fluid WBC Fluid RBC 10/26/18 10:47 WBC RBC Hgb Hct MCV MCH MCHC RDW Plt Count Seg Neutrophils % Lymphocytes % Monocytes % Eosinophils % Basophils % Absolute Neutrophils Absolute Lymphocytes Absolute Monocytes Absolute Eosinophils Absolute Basophils Carbonic Acid HCO3/H2CO3 Ratio ABG pH ABG pCO2 ABG pO2 ABG HCO3 ABG O2 Saturation ABG Base Excess FiO2 Sodium Potassium Chloride Carbon Dioxide Anion Gap BUN Creatinine Est GFR ( Amer) Est GFR (Non-Af Amer) Glucose Calcium Magnesium Total Protein Triglycerides Fluid Type BRONCHIAL WASH Fluid Source LUNG Fluid Color PINK Fluid Appearance HAZY Fluid Viscosity LIQUID Fluid WBC 656 Fluid RBC 5388 09/29/18 09/29/18 09/29/18 10:44 10:44 12:59 Creatine Kinase Cancelled CK-MB (CK-2) Troponin I Cancelled 0.028 NT-Pro-B Natriuret Pep 09/29/18 09/29/18 09/29/18 12:59 15:30 15:30 Creatine Kinase 77 161 H CK-MB (CK-2) 2.69 Troponin I 0.028 NT-Pro-B Natriuret Pep 09/29/18 09/29/18 09/30/18 18:59 18:59 00:59 Creatine Kinase 201 H 197 H CK-MB (CK-2) 3.45 Troponin I 0.023 NT-Pro-B Natriuret Pep 09/30/18 10/01/18 10/03/18 00:59 04:13 04:50 Creatine Kinase CK-MB (CK-2) 2.94 Troponin I 0.021 NT-Pro-B Natriuret Pep 2270 H 3170 H 10/09/18 04:50 Creatine Kinase CK-MB (CK-2) Troponin I NT-Pro-B Natriuret Pep 630 Impressions: Head CT 10/03/18 00:00 IMPRESSION: CHRONIC CHANGES OF ATROPHY AND MICROVASCULAR ISCHEMIA. NO ACUTE PROCESS. EVIDENCE OF ACUTE STROKE: NO. KUB X-Ray 10/05/18 00:00 IMPRESSION: Nasogastric tube tip and side port in the stomach Abdomen/Pelvis CT 10/23/18 00:00 IMPRESSION: Marked right pleural effusion and compressive atelectasis or obstructive atelectasis of the right lung. Large left pleural effusion. Generalized ascites. Chest CT 10/23/18 00:00 IMPRESSION: Marked right pleural effusion and compressive atelectasis or obstructive atelectasis of the right lung. Large left pleural effusion. Generalized ascites. Chest Ultrasound 10/25/18 00:08 IMPRESSION: See above. Paracentesis Ultrasound 10/25/18 12:53 IMPRESSION: Successful ultrasound-guided paracentesis Chest X-Ray 10/26/18 10:00 IMPRESSION: Tubes and lines in good positioning. No change compared to CT chest 10/23/2018 Assessment & Plan - Diagnosis (1) Acute kidney injury Is this a current diagnosis for this admission?: Yes Plan: Secondary to ATN due to septic shock. Urine output continues to decline while she remains to have anasarca. She continues to be on Lasix drip and scheduled IV albumin. We will do dialysis today for 2 hours of ultrafiltration and hemodialysis for 1 hour, using the patient's trialysis catheter, with 3 potassium bath, blood flow rate of 250 mL per minute, dialysate flow rate of 500 mL per minute, ultrafiltration 3-4 L as tolerated, no heparin and Procrit with 20,000 units during dialysis intravenously. Patient is continuously monitored throughout dialysis treatment. She required Beny-Synephrine drip with initially a higher dose to maintain blood pressure during ultrafiltration but currently the rate of Beny-Synephrine has gone down to just 10. Patient will be continuously monitored throughout dialysis treatment. (2) Acute tubular necrosis Is this a current diagnosis for this admission?: Yes (3) Sepsis Qualifiers: Sepsis type: sepsis due to unspecified organism Qualified Code(s): A41.9 - Sepsis, unspecified organism Is this a current diagnosis for this admission?: Yes (4) Escherichia coli urinary tract infection Is this a current diagnosis for this admission?: Yes (5) Metabolic encephalopathy Is this a current diagnosis for this admission?: Yes Plan: Multifactorial due to septic shock, infection, and alcohol withdrawal. (6) Metabolic acidosis Is this a current diagnosis for this admission?: Yes Plan: Resolved. (7) Respiratory failure with hypoxia and hypercapnia Qualifiers: Chronicity: acute Qualified Code(s): J96.01 - Acute respiratory failure with hypoxia; J96.02 - Acute respiratory failure with hypercapnia Is this a current diagnosis for this admission?: Yes Plan: Reintubated for bronchoscopy today.. (8) Hypoalbuminemia Is this a current diagnosis for this admission?: Yes Plan: Currently on scheduled IV albumin infusion. (9) Nosocomial pneumonia Is this a current diagnosis for this admission?: Yes (10) Alcoholism Is this a current diagnosis for this admission?: Yes Plan: She is currently being given multivitamins with alcohol withdrawal protocol. Likely to be the cause of her possible end-stage liver disease. 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 Also strong consideration for possible liver disease. We will give her Procrit on dialysis. (12) DIC (disseminated intravascular coagulation) Is this a current diagnosis for this admission?: Yes Plan: Hematology following. Considering end-stage liver disease. (13) Hyperammonemia Is this a current diagnosis for this admission?: Yes Plan: The consensus in this patient may have advanced liver disease that is causing her coagulopathy and encephalopathy with elevated ammonia level. Dr. Higuera and Dr. Klein is been discussing this with the family. - Notes Notes: Patient's prognosis remains to be very poor. Patient seems to be clinically deteriorating progressively rather than improving. - Time Time with patient: 15-25 minutes
--- NOTE | 2018-10-26 17:58 | Progress Note ---
Provider Note Provider Note: This is an update on the original transfer summary, since the last time she was supposed to be transfer there has been some clinical events, she had what was felt to be a DIC but after further evaluation the DIC picture was more consistent with advanced liver disease because of the other accompany signs and symptoms including persistent hypotension, elevated serum ammonia level, severe hypoalbuminemia with associated anasarca including ascites, pleural effusion. Unfortunately factor VIII is typically use to differentiate DIC from advanced liver disease, in advanced liver disease factor VIII level will be elevated but in DIC it would be decrease unfortunately she already received cryoprecipitate and also FFP so factor VIII assay could not be done. She also developed left lung collapse which was felt to be due to mucous plugging plus severe pleural effusion she underwent bronchoscopy today and she was reintubated on mechanical ventilation before today she was extubated about 3 days ago and she has been requiring noninvasive positive pressure ventilation with BiPAP. She was also taken off intravenous vasopressor she is presently on midodrine. There was no definite pathogen identified in the blood she has proteus culture from the urine when she was admitted. She has a long history of alcohol liver disease and also alcohol abuse the overall picture is more consistent with the patient with severe liver disease with coagulopathy and other complication of advanced liver disease. She continues to require hemodialysis while she is starting acute kidney injury she is also on continued scheduled intravenous albumin. Yesterday she underwent abdominal paracentesis about 1800 cc of peritoneal fluid was removedThe initial bronchoscopy that was done demonstrated fungal elements in BAL I felt this was most likely colonization but on the advice of other providers that patient should get antifungal agent I initiated fluconazole intravenously there is no evidence of tissue invasion of fungal infection that would suggest fungal infection
--- NOTE | 2018-10-26 20:35 | Progress Note ---
Provider Note Provider Note: I spoke to the attending physician at [facility] intensive care unit, [facility] refused to accept her in transfer, they suggest patient's care should be transitioned to comfort care/hospice, I will get hospice consult after talking to family tomorrow
[2018-10-27] MEDS: INSULIN LISPRO 100 UNIT/ML 3 ML VIAL SUBCUT SCH ×4 (00:57→17:22)
[2018-10-27] MEDS: IPRATROPIUM/ALBUTEROL 0.5-2.5 MG/3 ML AMPUL NEB SCH ×4 (01:52→21:09)
[2018-10-27] MEDS: PROPOFOL 1,000 MG/100 ML INFUS..BTL IV PRN (04:10)
[2018-10-27 04:32] LABS: ARTERIAL BLOOD BASE EXCESS 3.2 mmol/L; ARTERIAL BLOOD HCO3 26.7 mmol/L (20-24); ARTERIAL BLOOD O2 SATURATION 95.2 % (94-98); ARTERIAL BLOOD PCO2 36.7 mmHg (35-45); ARTERIAL BLOOD PH 7.48 (7.35-7.45); ARTERIAL BLOOD TOTAL CO2 27.8 mmol/L (21-25)
[2018-10-27 04:33] LABS: ARTERIAL BLOOD FIO2 35%
[2018-10-27 04:38] LABS: ABSOLUTE BASOPHILS # (AUTO) 0.1 10^3/uL (0.0-0.2); ABSOLUTE EOSINOPHILS # (AUTO) 0.8 10^3/uL (0.0-0.6); ABSOLUTE LYMPHOCYTES (AUTO) 1.9 10^3/uL (0.5-4.7); ABSOLUTE MONOCYTES (AUTO) 1.2 10^3/uL (0.1-1.4); ABSOLUTE NEUT (AUTO) 8.9 10^3/uL (1.7-8.2); BASOPHILS % (AUTO) 0.8 % (0-2); EOSINOPHILS % (AUTO) 5.9 % (0-6); HEMATOCRIT 28.8 % (36.0-47.0); HEMOGLOBIN 9.4 g/dL (12.0-15.5); INTERNATIONAL RATION (INR) 1.44; LYMPHOCYTES % (AUTO) 15.1 % (13-45); MEAN CORPUSCULAR HEMOGLOBIN 31.8 pg (27.0-33.4); MEAN CORPUSCULAR HGB CONC 32.7 g/dL (32.0-36.0); MEAN CORPUSCULAR VOLUME 97 fl (80-97); MONOCYTES % (AUTO) 9.4 % (3-13); PROTHROMBIN TIME 18.3 SEC (11.4-15.4); RED BLOOD COUNT 2.96 10^6/uL (3.72-5.28); RED CELL DISTRIBUTION WIDTH 22.8 % (11.5-14.0); SEGMENTED NEUTROPHILS % (AUTO) 68.8 % (42-78); TOTAL CELLS COUNTED % (AUTO) 100 %
[2018-10-27 05:01] LABS: PLATELET COUNT 62 10^3/uL (150-450); WHITE BLOOD COUNT 12.9 10^3/uL (4.0-10.5)
[2018-10-27] MEDS: LACTOBACILLUS ACIDOPHILUS 250 MG TAB NG SCH ×2 (05:07→17:20)
[2018-10-27 05:13] LABS: ANION GAP 11 (5-19); BLOOD UREA NITROGEN 7 mg/dL (7-20); CALCIUM 10.5 mg/dL (8.4-10.2); CARBON DIOXIDE 24 mmol/L (22-30); CHLORIDE 110 mmol/L (98-107); GLUCOSE 91 mg/dL (75-110); POTASSIUM 3.7 mmol/L (3.6-5.0); SODIUM 144.9 mmol/L (137-145)
--- NOTE | 2018-10-27 07:45 | RADIOLOGY REPORT (SQ) ---
EXAM DESCRIPTION: XR CHEST 1 VIEW COMPLETED DATE/TME: 10/27/2018 06:00 CLINICAL HISTORY: 53 years Female, resp failure COMPARISON: One day prior. NUMBER OF VIEWS/TECHNIQUE: 1/AP FINDINGS: Moderate mixed airspace and interstitial opacities. Bilateral lower thoracic opacity/effusion. Adequate appearing endotracheal tube. Adequate appearing enteric tube with tip at the left upper abdominal quadrant. Adequate appearing right jugular central line. Mildly enlarged cardiac silhouette. No pneumothorax. Stable bony thorax. IMPRESSION: Moderate mixed airspace and interstitial opacities. Bilateral lower thoracic opacity/effusion. Interval improvement.
[2018-10-27] MEDS: ACETYLCYSTEINE 20% SOLN 800 MG/4 ML VIAL.NEB NEB SCH ×2 (08:24→21:09)
[2018-10-27] MEDS: NORMAL SALINE 1000 ML 1,000 ML with POTASSIUM CHLORIDE 20 MEQ, MAGNESIUM SULFATE 8 MEQ,... IV SCH ×4 (08:36)
[2018-10-27] MEDS: SODIUM BICARBONATE 650 MG TABLET PO SCH ×2 (10:50→21:07)
[2018-10-27] MEDS: NYSTATIN TOPICAL POWDER 15 GM TP SCH ×2 (10:50→17:22)
[2018-10-27] MEDS: MIDODRINE HCL 5 MG TABLET NG SCH ×2 (10:50→21:07)
[2018-10-27] MEDS: THIAMINE HCL 100 MG TABLET NG SCH (10:50)
--- NOTE | 2018-10-27 12:11 | PDOC PROGRESS REPORT ---
Subjective Progress Note for:: 10/27/18 Subjective:: extubate to bipap Reason For Visit: SEPSIS, UTI, AMS, ACUTE KIDNEY INJURY, DELIRIUM Physical Exam Vital Signs: Temp Pulse Resp BP Pulse Ox 98.1 F 101 H 19 128/74 H 99 10/27/18 08:00 10/27/18 08:24 10/27/18 08:24 10/27/18 08:00 10/27/18 08:24 Intake & Output 10/26/18 10/27/18 10/28/18 06:59 06:59 06:59 Intake Total 2491 1670 33 Output Total 378 3020 50 Balance 2113 -9070 -17 Weight 89.9 kg 88.8 kg General appearance: PRESENT: no acute distress, disheveled. ABSENT: cooperative Head exam: PRESENT: atraumatic, normocephalic Eye exam: PRESENT: conjunctiva pale. ABSENT: EOMI, nystagmus, periorbital swelling, scleral icterus Mouth exam: PRESENT: dry mucosa, neck supple, tongue midline, other - ET tube Neck exam: ABSENT: carotid bruit, full ROM, JVD, lymphadenopathy, meningismus, tenderness, thyromegaly, tracheal deviation, tracheostomy, other Respiratory exam: PRESENT: decreased breath sounds, prolonged expiratory phas, rales, rhonchi, unlabored. ABSENT: retraction, stridor Cardiovascular exam: PRESENT: RRR, +S1, +S2 Pulses: PRESENT: normal radial pulses GI/Abdominal exam: PRESENT: soft Gentrourinary exam: PRESENT: indwelling catheter Extremities exam: ABSENT: calf tenderness, clubbing, joint swelling, pedal edema Musculoskeletal exam: ABSENT: deformity, dislocation Neurological exam: PRESENT: altered, awake Skin exam: PRESENT: dry, warm Results Laboratory Results: 10/27/18 03:55 10/27/18 04:40 10/26/18 10/26/18 10/27/18 04:20 10:47 03:55 WBC 12.9 H RBC 2.96 L Hgb 9.4 L Hct 28.8 L MCV 97 MCH 31.8 MCHC 32.7 RDW 22.8 H Plt Count 62 L Seg Neutrophils % 68.8 Lymphocytes % 15.1 Monocytes % 9.4 Eosinophils % 5.9 Basophils % 0.8 Absolute Neutrophils 8.9 H Absolute Lymphocytes 1.9 Absolute Monocytes 1.2 Absolute Eosinophils 0.8 H Absolute Basophils 0.1 Carbonic Acid HCO3/H2CO3 Ratio ABG pH ABG pCO2 ABG pO2 ABG HCO3 ABG O2 Saturation ABG Base Excess FiO2 Sodium Potassium Chloride Carbon Dioxide Anion Gap BUN Creatinine Est GFR ( Amer) Est GFR (Non-Af Amer) Glucose Calcium Magnesium Triglycerides 84 Fluid Type BRONCHIAL WASH Fluid Source LUNG Fluid Color PINK Fluid Appearance HAZY Fluid Viscosity LIQUID Fluid WBC 656 Fluid RBC 5388 10/27/18 10/27/18 04:18 04:40 WBC RBC Hgb Hct MCV MCH MCHC RDW Plt Count Seg Neutrophils % Lymphocytes % Monocytes % Eosinophils % Basophils % Absolute Neutrophils Absolute Lymphocytes Absolute Monocytes Absolute Eosinophils Absolute Basophils Carbonic Acid 1.10 HCO3/H2CO3 Ratio 24:1 ABG pH 7.48 H ABG pCO2 36.7 ABG pO2 70.0 L ABG HCO3 26.7 H ABG O2 Saturation 95.2 ABG Base Excess 3.2 FiO2 35% Sodium 144.9 Potassium 3.7 Chloride 110 H Carbon Dioxide 24 Anion Gap 11 BUN 7 Creatinine 2.69 H Est GFR ( Amer) 22 L Est GFR (Non-Af Amer) 18 L Glucose 91 Calcium 10.5 H Magnesium 2.2 Triglycerides Fluid Type Fluid Source Fluid Color Fluid Appearance Fluid Viscosity Fluid WBC Fluid RBC 09/29/18 09/29/18 09/29/18 10:44 10:44 12:59 Creatine Kinase Cancelled CK-MB (CK-2) Troponin I Cancelled 0.028 NT-Pro-B Natriuret Pep 09/29/18 09/29/18 09/29/18 12:59 15:30 15:30 Creatine Kinase 77 161 H CK-MB (CK-2) 2.69 Troponin I 0.028 NT-Pro-B Natriuret Pep 09/29/18 09/29/18 09/30/18 18:59 18:59 00:59 Creatine Kinase 201 H 197 H CK-MB (CK-2) 3.45 Troponin I 0.023 NT-Pro-B Natriuret Pep 09/30/18 10/01/18 10/03/18 00:59 04:13 04:50 Creatine Kinase CK-MB (CK-2) 2.94 Troponin I 0.021 NT-Pro-B Natriuret Pep 2270 H 3170 H 10/09/18 04:50 Creatine Kinase CK-MB (CK-2) Troponin I NT-Pro-B Natriuret Pep 630 Impressions: Head CT 10/03/18 00:00 IMPRESSION: CHRONIC CHANGES OF ATROPHY AND MICROVASCULAR ISCHEMIA. NO ACUTE PROCESS. EVIDENCE OF ACUTE STROKE: NO. KUB X-Ray 10/05/18 00:00 IMPRESSION: Nasogastric tube tip and side port in the stomach Abdomen/Pelvis CT 10/23/18 00:00 IMPRESSION: Marked right pleural effusion and compressive atelectasis or obstructive atelectasis of the right lung. Large left pleural effusion. Generalized ascites. Chest CT 10/23/18 00:00 IMPRESSION: Marked right pleural effusion and compressive atelectasis or obstructive atelectasis of the right lung. Large left pleural effusion. Generalized ascites. Chest Ultrasound 10/25/18 00:08 IMPRESSION: See above. Paracentesis Ultrasound 10/25/18 12:53 IMPRESSION: Successful ultrasound-guided paracentesis Chest X-Ray 10/27/18 06:00 IMPRESSION: Moderate mixed airspace and interstitial opacities. Bilateral lower thoracic opacity/effusion. Interval improvement. Assessment & Plan - Diagnosis (1) Lactic acidosis Is this a current diagnosis for this admission?: Yes Plan: Serial lactic acid her increasing (2) Metabolic encephalopathy Is this a current diagnosis for this admission?: Yes Plan: unchanged (3) Respiratory failure with hypoxia and hypercapnia Qualifiers: Chronicity: acute Qualified Code(s): J96.01 - Acute respiratory failure with hypoxia; J96.02 - Acute respiratory failure with hypercapnia Is this a current diagnosis for this admission?: Yes Plan: A-a = 276.8 PAo2/FIO2 = 135 (4) Septic shock Is this a current diagnosis for this admission?: Yes Plan: Continue vasopressor agents - Time Total Critical Time (Minutes): 50
[2018-10-27 13:02] LABS: TOTAL PROTEIN BODY FLUID 2.1 g/dL (.)
[2018-10-27] MEDS: NORMAL SALINE 250 ML with FUROSEMIDE 250 MG IV PRN ×2 (14:15)
--- NOTE | 2018-10-27 18:20 | PDOC PROGRESS REPORT ---
Subjective Progress Note for:: 10/27/18 Subjective:: Patient is currently extubated and on oxygen tent so far has been tolerating it. Although she is awake she does not really respond to any questioning or follow any commands. She remains to be oliguric. Patient's transfer to [facility] was declined. Dr. Higuera told me that he had a family conference in his office and discussed the decision of [facility] to decline patient's transfer since they cannot do anything further for the patient and the rec ommendation for hospice. Despite that I was told by Dr. Higuera that the patient's family still would like to continue everything for the patient. Reason For Visit: SEPSIS, UTI, AMS, ACUTE KIDNEY INJURY, DELIRIUM Physical Exam Vital Signs: Temp Pulse Resp BP Pulse Ox 96.4 F L 97 21 H 104/70 99 10/27/18 16:00 10/27/18 16:00 10/27/18 16:00 10/27/18 16:00 10/27/18 16:00 Intake & Output 10/26/18 10/27/18 10/28/18 06:59 06:59 06:59 Intake Total 2491 1670 1305 Output Total 378 3020 245 Balance 2113 -1350 1060 Weight 89.9 kg 88.8 kg Exam: General appearance: PRESENT: no acute distress, cooperative, tolerating oxygen tent Head exam: PRESENT: atraumatic, normocephalic Eye exam: PRESENT: conjunctiva pale, PERRLA. ABSENT: scleral icterus Neck exam: ABSENT: JVD Respiratory exam: PRESENT: Coarse breath sounds. ABSENT: crackles, rales, rhonchi, unlabored, wheezes Cardiovascular exam: PRESENT: Regular rate rhythm -+S1, +S2. ABSENT: diastolic murmur, systolic murmur GI/Abdominal exam: PRESENT: normal bowel sounds, soft. ABSENT: guarding, mass, tenderness Extremities exam: Unchanged anasarca, grade 3 bilateral lower extremity pitting edema in left upper extremity edema Neurological exam: PRESENT: alert, awake, noncommunicative. Skin exam: PRESENT: dry, warm, Cardiovascular exam: PRESENT: +S1, +S2, systolic murmur GI/Abdominal exam: PRESENT: normal bowel sounds, soft. ABSENT: organomegaly, tenderness Results Laboratory Results: 10/27/18 03:55 10/27/18 04:40 10/25/18 10/25/18 10/27/18 15:50 15:50 03:55 WBC 12.9 H RBC 2.96 L Hgb 9.4 L Hct 28.8 L MCV 97 MCH 31.8 MCHC 32.7 RDW 22.8 H Plt Count 62 L Seg Neutrophils % 68.8 Lymphocytes % 15.1 Monocytes % 9.4 Eosinophils % 5.9 Basophils % 0.8 Absolute Neutrophils 8.9 H Absolute Lymphocytes 1.9 Absolute Monocytes 1.2 Absolute Eosinophils 0.8 H Absolute Basophils 0.1 Carbonic Acid HCO3/H2CO3 Ratio ABG pH ABG pCO2 ABG pO2 ABG HCO3 ABG O2 Saturation ABG Base Excess FiO2 Sodium Potassium Chloride Carbon Dioxide Anion Gap BUN Creatinine Est GFR ( Amer) Est GFR (Non-Af Amer) Glucose Calcium Magnesium Fluid Glucose 102 Fluid Total Protein 2.1 Fluid LDH 63 Fluid Amylase 16 10/27/18 10/27/18 04:18 04:40 WBC RBC Hgb Hct MCV MCH MCHC RDW Plt Count Seg Neutrophils % Lymphocytes % Monocytes % Eosinophils % Basophils % Absolute Neutrophils Absolute Lymphocytes Absolute Monocytes Absolute Eosinophils Absolute Basophils Carbonic Acid 1.10 HCO3/H2CO3 Ratio 24:1 ABG pH 7.48 H ABG pCO2 36.7 ABG pO2 70.0 L ABG HCO3 26.7 H ABG O2 Saturation 95.2 ABG Base Excess 3.2 FiO2 35% Sodium 144.9 Potassium 3.7 Chloride 110 H Carbon Dioxide 24 Anion Gap 11 BUN 7 Creatinine 2.69 H Est GFR ( Amer) 22 L Est GFR (Non-Af Amer) 18 L Glucose 91 Calcium 10.5 H Magnesium 2.2 Fluid Glucose Fluid Total Protein Fluid LDH Fluid Amylase 09/29/18 09/29/18 09/29/18 10:44 10:44 12:59 Creatine Kinase Cancelled CK-MB (CK-2) Troponin I Cancelled 0.028 NT-Pro-B Natriuret Pep 09/29/18 09/29/18 09/29/18 12:59 15:30 15:30 Creatine Kinase 77 161 H CK-MB (CK-2) 2.69 Troponin I 0.028 NT-Pro-B Natriuret Pep 09/29/18 09/29/18 09/30/18 18:59 18:59 00:59 Creatine Kinase 201 H 197 H CK-MB (CK-2) 3.45 Troponin I 0.023 NT-Pro-B Natriuret Pep 09/30/18 10/01/18 10/03/18 00:59 04:13 04:50 Creatine Kinase CK-MB (CK-2) 2.94 Troponin I 0.021 NT-Pro-B Natriuret Pep 2270 H 3170 H 10/09/18 04:50 Creatine Kinase CK-MB (CK-2) Troponin I NT-Pro-B Natriuret Pep 630 Impressions: Head CT 10/03/18 00:00 IMPRESSION: CHRONIC CHANGES OF ATROPHY AND MICROVASCULAR ISCHEMIA. NO ACUTE PROCESS. EVIDENCE OF ACUTE STROKE: NO. KUB X-Ray 10/05/18 00:00 IMPRESSION: Nasogastric tube tip and side port in the stomach Abdomen/Pelvis CT 10/23/18 00:00 IMPRESSION: Marked right pleural effusion and compressive atelectasis or obstructive atelectasis of the right lung. Large left pleural effusion. Generalized ascites. Chest CT 10/23/18 00:00 IMPRESSION: Marked right pleural effusion and compressive atelectasis or obstructive atelectasis of the right lung. Large left pleural effusion. Generalized ascites. Chest Ultrasound 10/25/18 00:08 IMPRESSION: See above. Paracentesis Ultrasound 10/25/18 12:53 IMPRESSION: Successful ultrasound-guided paracentesis Chest X-Ray 10/27/18 06:00 IMPRESSION: Moderate mixed airspace and interstitial opacities. Bilateral lower thoracic opacity/effusion. Interval improvement. Assessment & Plan - Diagnosis (1) Acute kidney injury Is this a current diagnosis for this admission?: Yes Plan: Secondary to ATN due to septic shock. Urine output continues to decline while she remains to have anasarca. She continues to be on Lasix drip and scheduled IV albumin. We will plan to do hemodialysis with ultrafiltration again tomorrow as the patient's family would like to continue everything at this point. In my opinion I think we have maximized and optimized all available current treatment for the patient and she is not responding. I agree with recommendation for hospice and comfort care unfortunately the patient's family would like to continue treatment. Patient is not a candidate for chronic dialysis. (2) Acute tubular necrosis Is this a current diagnosis for this admission?: Yes (3) Sepsis Qualifiers: Sepsis type: sepsis due to unspecified organism Qualified Code(s): A41.9 - Sepsis, unspecified organism Is this a current diagnosis for this admission?: Yes (4) Escherichia coli urinary tract infection Is this a current diagnosis for this admission?: Yes (5) Metabolic encephalopathy Is this a current diagnosis for this admission?: Yes Plan: Multifactorial due to septic shock, infection, and alcohol withdrawal. (6) Metabolic acidosis Is this a current diagnosis for this admission?: Yes Plan: Resolved. (7) Respiratory failure with hypoxia and hypercapnia Qualifiers: Chronicity: acute Qualified Code(s): J96.01 - Acute respiratory failure with hypoxia; J96.02 - Acute respiratory failure with hypercapnia Is this a current diagnosis for this admission?: Yes Plan: Currently extubated. (8) Hypoalbuminemia Is this a current diagnosis for this admission?: Yes Plan: Currently on scheduled IV albumin infusion. (9) Nosocomial pneumonia Is this a current diagnosis for this admission?: Yes (10) Alcoholism Is this a current diagnosis for this admission?: Yes Plan: She is currently being given multivitamins with alcohol withdrawal protocol. Likely to be the cause of her possible end-stage liver disease. (11) Anemia Qualifiers: Anemia type: other cause Other causes of anemia: chronic disease, other Qualified Code(s): D63.8 - Anemia in other chronic diseases classified elsewhere Is this a current diagnosis for this admission?: Yes Plan: Multifactorial causes including sepsis and patient is currently has the DIC being followed by her hr business partner consultant. Also strong consideration for possible liver disease. We will give her Procrit on dialysis. (12) DIC (disseminated intravascular coagulation) Is this a current diagnosis for this admission?: Yes Plan: Hematology following. Considering end-stage liver disease. (13) Hyperammonemia Is this a current diagnosis for this admission?: Yes Plan: The consensus in this patient may have advanced liver disease that is causing her coagulopathy and encephalopathy with elevated ammonia level. Dr. Higuera and Dr. Klein is been discussing this with the family. - Notes Notes: Prognosis is very poor. I think current management is futile as the patient is no longer responding. Agree with recommendation of comfort care and hospice for this patient. - Time Time with patient: 15-25 minutes
--- NOTE | 2018-10-27 19:45 | PDOC PROGRESS REPORT ---
Subjective Progress Note for:: 10/27/18 Subjective:: Patient is seen by the bedside, she respond to painful stimulus but she is not communicating.I again had a long discussion with family about patient's prognosis and the recommendation that patient should be hospice care. She was extubated today, she still requires hemodialysis, usually she will need vasopressor, norepinephrine intravenously during dialysis making it necessary for her to stay in ICU otherwise she could be downgraded to stepdown unit Reason For Visit: SEPSIS, UTI, AMS, ACUTE KIDNEY INJURY, DELIRIUM Physical Exam Vital Signs: Temp Pulse Resp BP Pulse Ox 96.6 F L 98 15 101/78 98 10/27/18 19:28 10/27/18 18:00 10/27/18 18:45 10/27/18 18:30 10/27/18 18:45 Intake & Output 10/26/18 10/27/18 10/28/18 06:59 06:59 06:59 Intake Total 2491 1670 1435 Output Total 378 3020 365 Balance 2113 -1350 1070 Weight 89.9 kg 88.8 kg Head exam: PRESENT: other - Patient respond to painful stimulus Respiratory exam: PRESENT: decreased breath sounds Cardiovascular exam: PRESENT: +S1, +S2 GI/Abdominal exam: PRESENT: soft Neurological exam: PRESENT: altered Results Laboratory Results: 10/27/18 03:55 10/27/18 04:40 10/25/18 10/25/18 10/27/18 15:50 15:50 03:55 WBC 12.9 H RBC 2.96 L Hgb 9.4 L Hct 28.8 L MCV 97 MCH 31.8 MCHC 32.7 RDW 22.8 H Plt Count 62 L Seg Neutrophils % 68.8 Lymphocytes % 15.1 Monocytes % 9.4 Eosinophils % 5.9 Basophils % 0.8 Absolute Neutrophils 8.9 H Absolute Lymphocytes 1.9 Absolute Monocytes 1.2 Absolute Eosinophils 0.8 H Absolute Basophils 0.1 Carbonic Acid HCO3/H2CO3 Ratio ABG pH ABG pCO2 ABG pO2 ABG HCO3 ABG O2 Saturation ABG Base Excess FiO2 Sodium Potassium Chloride Carbon Dioxide Anion Gap BUN Creatinine Est GFR ( Amer) Est GFR (Non-Af Amer) Glucose Calcium Magnesium Fluid Glucose 102 Fluid Total Protein 2.1 Fluid LDH 63 Fluid Amylase 16 10/27/18 10/27/18 04:18 04:40 WBC RBC Hgb Hct MCV MCH MCHC RDW Plt Count Seg Neutrophils % Lymphocytes % Monocytes % Eosinophils % Basophils % Absolute Neutrophils Absolute Lymphocytes Absolute Monocytes Absolute Eosinophils Absolute Basophils Carbonic Acid 1.10 HCO3/H2CO3 Ratio 24:1 ABG pH 7.48 H ABG pCO2 36.7 ABG pO2 70.0 L ABG HCO3 26.7 H ABG O2 Saturation 95.2 ABG Base Excess 3.2 FiO2 35% Sodium 144.9 Potassium 3.7 Chloride 110 H Carbon Dioxide 24 Anion Gap 11 BUN 7 Creatinine 2.69 H Est GFR ( Amer) 22 L Est GFR (Non-Af Amer) 18 L Glucose 91 Calcium 10.5 H Magnesium 2.2 Fluid Glucose Fluid Total Protein Fluid LDH Fluid Amylase 09/29/18 09/29/18 09/29/18 10:44 10:44 12:59 Creatine Kinase Cancelled CK-MB (CK-2) Troponin I Cancelled 0.028 NT-Pro-B Natriuret Pep 09/29/18 09/29/18 09/29/18 12:59 15:30 15:30 Creatine Kinase 77 161 H CK-MB (CK-2) 2.69 Troponin I 0.028 NT-Pro-B Natriuret Pep 09/29/18 09/29/18 09/30/18 18:59 18:59 00:59 Creatine Kinase 201 H 197 H CK-MB (CK-2) 3.45 Troponin I 0.023 NT-Pro-B Natriuret Pep 09/30/18 10/01/18 10/03/18 00:59 04:13 04:50 Creatine Kinase CK-MB (CK-2) 2.94 Troponin I 0.021 NT-Pro-B Natriuret Pep 2270 H 3170 H 10/09/18 04:50 Creatine Kinase CK-MB (CK-2) Troponin I NT-Pro-B Natriuret Pep 630 Impressions: Head CT 10/03/18 00:00 IMPRESSION: CHRONIC CHANGES OF ATROPHY AND MICROVASCULAR ISCHEMIA. NO ACUTE PROCESS. EVIDENCE OF ACUTE STROKE: NO. KUB X-Ray 10/05/18 00:00 IMPRESSION: Nasogastric tube tip and side port in the stomach Abdomen/Pelvis CT 10/23/18 00:00 IMPRESSION: Marked right pleural effusion and compressive atelectasis or obstructive atelectasis of the right lung. Large left pleural effusion. Generalized ascites. Chest CT 10/23/18 00:00 IMPRESSION: Marked right pleural effusion and compressive atelectasis or obstructive atelectasis of the right lung. Large left pleural effusion. Generalized ascites. Chest Ultrasound 10/25/18 00:08 IMPRESSION: See above. Paracentesis Ultrasound 10/25/18 12:53 IMPRESSION: Successful ultrasound-guided paracentesis Chest X-Ray 10/27/18 06:00 IMPRESSION: Moderate mixed airspace and interstitial opacities. Bilateral lower thoracic opacity/effusion. Interval improvement. Assessment & Plan - Diagnosis (1) Septic shock Is this a current diagnosis for this admission?: Yes (2) UTI (urinary tract infection) Qualifiers: Urinary tract infection type: site unspecified Hematuria presence: with hematuria Qualified Code(s): N39.0 - Urinary tract infection, site not specified; R31.9 - Hematuria, unspecified Is this a current diagnosis for this admission?: Yes (3) Hypokalemia Is this a current diagnosis for this admission?: Yes (4) Hypomagnesemia Is this a current diagnosis for this admission?: Yes (5) Alcohol abuse Is this a current diagnosis for this admission?: Yes (6) Metabolic encephalopathy Is this a current diagnosis for this admission?: Yes (7) Hyperammonemia Is this a current diagnosis for this admission?: Yes (8) Alcohol withdrawal Qualifiers: Complication of substance-induced condition: with delirium Qualified Code(s): F10.231 - Alcohol dependence with withdrawal delirium Is this a current diagnosis for this admission?: Yes (9) Respiratory failure with hypoxia and hypercapnia Qualifiers: Chronicity: acute Qualified Code(s): J96.01 - Acute respiratory failure with hypoxia; J96.02 - Acute respiratory failure with hypercapnia Is this a current diagnosis for this admission?: Yes (10) Nosocomial pneumonia Is this a current diagnosis for this admission?: Yes (11) Hypotension Qualifiers: Hypotension type: unspecified hypotension type Qualified Code(s): I95.9 - Hypotension, unspecified Is this a current diagnosis for this admission?: Yes (12) Gastroparesis Is this a current diagnosis for this admission?: Yes (13) Acute kidney injury Is this a current diagnosis for this admission?: Yes (14) DIC (disseminated intravascular coagulation) Is this a current diagnosis for this admission?: Yes - Plan Summary Plan Summary: Patient overall prognosis remains poor
[2018-10-27] MEDS ORDERED: NORMAL SALINE 500 ML IV ONE (23:45)
[2018-10-28] MEDS: INSULIN LISPRO 100 UNIT/ML 3 ML VIAL SUBCUT SCH ×5 (00:36→23:35)
[2018-10-28] MEDS: IPRATROPIUM/ALBUTEROL 0.5-2.5 MG/3 ML AMPUL NEB SCH ×4 (02:09→20:15)
[2018-10-28] MEDS: NORMAL SALINE 250 ML with FUROSEMIDE 250 MG IV PRN ×4 (03:05→19:00)
[2018-10-28 03:46] LABS: ARTERIAL BLOOD BASE EXCESS 0.2 mmol/L; ARTERIAL BLOOD H2CO3 1.63 mmol/L (1.05-1.35); ARTERIAL BLOOD HCO3 26.9 mmol/L (20-24); ARTERIAL BLOOD O2 SATURATION 91.7 % (94-98); ARTERIAL BLOOD PCO2 54.1 mmHg (35-45); ARTERIAL BLOOD PH 7.32 (7.35-7.45); ARTERIAL BLOOD PO2 67.8 mmHg (80-100); ARTERIAL BLOOD TOTAL CO2 28.6 mmol/L (21-25)
[2018-10-28 03:48] LABS: ARTERIAL BLOOD FIO2 3L
[2018-10-28 03:52] LABS: HEMATOCRIT 29.5 % (36.0-47.0); HEMOGLOBIN 9.5 g/dL (12.0-15.5); MEAN CORPUSCULAR HEMOGLOBIN 31.3 pg (27.0-33.4); MEAN CORPUSCULAR HGB CONC 32.2 g/dL (32.0-36.0); MEAN CORPUSCULAR VOLUME 97 fl (80-97); RED BLOOD COUNT 3.04 10^6/uL (3.72-5.28)
[2018-10-28 04:00] LABS: ANION GAP 9 (5-19); BLOOD UREA NITROGEN 8 mg/dL (7-20); CALCIUM 11.2 mg/dL (8.4-10.2); CARBON DIOXIDE 27 mmol/L (22-30); CHLORIDE 110 mmol/L (98-107); GLUCOSE 100 mg/dL (75-110); POTASSIUM 3.7 mmol/L (3.6-5.0); SODIUM 146.3 mmol/L (137-145)
[2018-10-28 04:47] LABS: PLATELET COUNT 69 10^3/uL (150-450)
[2018-10-28 04:50] LABS: ABSOLUTE LYMPHOCYTES# (MANUAL) 1.7 10^3/uL (0.5-4.7); ABSOLUTE MONOCYTES # (MANUAL) 0.8 10^3/uL (0.1-1.4); ABSOLUTE NEUTROPHILS# (MANUAL) 7.7 10^3/uL (1.7-8.2); BAND NEUTROPHILS % (MANUAL) 1 % (3-5); BASOPHILS % (MANUAL) 0 % (0-2); EOSINOPHILS % (MANUAL) 8 % (0-6); LYMPHOCYTES % (MANUAL) 15 % (13-45); MONOCYTES % (MANUAL) 7 % (3-13); SEGMENTED NEUTROPHILS % (MAN) 69 % (42-78); TOTAL CELLS COUNTED 100
[2018-10-28 04:52] LABS: ANISOCYTOSIS 3+; HYPOCHROMASIA 1+; PLATELET COMMENT ADEQUATE; POIKILOCYTOSIS 1+; POLYCHROMASIA 1+; STOMATOCYTES 1+
[2018-10-28] MEDS ORDERED: EPOETIN ALFA INJ 20000 UNIT/1 ML VIAL (RENAL) IV PRN (05:00)
[2018-10-28] MEDS ORDERED: NORMAL SALINE 1000 ML 1,000 ML IV PRN (05:00)
[2018-10-28] MEDS: LACTOBACILLUS ACIDOPHILUS 250 MG TAB NG SCH ×2 (05:10→17:38)
--- NOTE | 2018-10-28 06:37 | RADIOLOGY REPORT (SQ) ---
EXAM DESCRIPTION: XR CHEST 1 VIEW COMPLETED DATE/TME: 10/28/2018 06:00 CLINICAL HISTORY: 53 years Female, pna COMPARISON: One day prior. NUMBER OF VIEWS/TECHNIQUE: 1/AP FINDINGS: Moderate mixed interstitial and airspace opacities. Moderate bilateral pleural effusions, right more than left. Moderate bibasilar opacities. Adequate appearing enteric tube partially obscured. Adequate appearing right jugular central line. Normal cardiac silhouette size. No pneumothorax. Stable bony thorax. IMPRESSION: Interval extubation.
[2018-10-28] MEDS: ACETYLCYSTEINE 20% SOLN 800 MG/4 ML VIAL.NEB NEB SCH ×2 (08:19→20:15)
--- NOTE | 2018-10-28 11:58 | PDOC PROGRESS REPORT ---
Subjective Progress Note for:: 10/28/18 Subjective:: I saw the patient during dialysis this morning. Patient is on a BiPAP and is more awake. She actually answered my question and told me that she feels fine. She nods to some questioning. This is the most response that I got since I have seen her for the past 3 weeks. Her blood pressure went down a little bit so we needed to start the patient on Beny-Synephrine while during dialysis. Otherwise she was able to tolerate ultrafiltration. Reason For Visit: SEPSIS, UTI, AMS, ACUTE KIDNEY INJURY, DELIRIUM Physical Exam Vital Signs: Temp Pulse Resp BP Pulse Ox 95.9 F L 85 17 133/106 H 98 10/28/18 11:01 10/28/18 10:00 10/28/18 11:01 10/28/18 11:00 10/28/18 11:01 Intake & Output 10/27/18 10/28/18 10/29/18 06:59 06:59 06:59 Intake Total 1670 1685 Output Total 3020 520 2275 Balance -1350 1165 -2275 Weight 88.8 kg 89.5 kg Vitals during dialysis this morning: Blood pressure of 90/53 improving to 110/77, heart rate of 91, respiratory rate of 16, oxygen saturation of 91% on BiPAP. Exam: General appearance: PRESENT: Currently on BiPAP and more awake and answering some questions Head exam: PRESENT: atraumatic, normocephalic Eye exam: PRESENT: conjunctiva pale, PERRLA. ABSENT: scleral icterus Neck exam: ABSENT: JVD Respiratory exam: PRESENT: Coarse breath sounds. Positive rales ABSENT: crackles, rales, rhonchi, unlabored, wheezes Cardiovascular exam: PRESENT: Regular rate rhythm -+S1, +S2. ABSENT: diastolic murmur, systolic murmur GI/Abdominal exam: PRESENT: normal bowel sounds, soft. ABSENT: guarding, mass, tenderness Extremities exam: Positive anasarca with slight improvement of lower extremity edema but still has significant edema on her thighs and buttocks, slight improvement in her left arm swelling Neurological exam: PRESENT: alert, awake, answers few questions. Skin exam: PRESENT: dry, warm, Cardiovascular exam: PRESENT: +S1, +S2, systolic murmur GI/Abdominal exam: PRESENT: normal bowel sounds, soft. ABSENT: organomegaly, t enderness Results Laboratory Results: 10/28/18 03:41 10/28/18 03:41 10/25/18 10/25/18 10/28/18 15:50 15:50 03:41 WBC RBC Hgb Hct MCV MCH MCHC RDW Plt Count Seg Neutrophils % Lymphocytes % Monocytes % Eosinophils % Basophils % Absolute Neutrophils Absolute Lymphocytes Absolute Monocytes Absolute Eosinophils Absolute Basophils Carbonic Acid 1.63 H HCO3/H2CO3 Ratio 16:1 ABG pH 7.32 L ABG pCO2 54.1 H ABG pO2 67.8 L ABG HCO3 26.9 H ABG O2 Saturation 91.7 L ABG Base Excess 0.2 FiO2 3L Sodium Potassium Chloride Carbon Dioxide Anion Gap BUN Creatinine Est GFR ( Amer) Est GFR (Non-Af Amer) Glucose Calcium Magnesium Fluid Glucose 102 Fluid Total Protein 2.1 Fluid LDH 63 Fluid Amylase 16 10/28/18 10/28/18 03:41 03:41 WBC 11.0 H RBC 3.04 L Hgb 9.5 L Hct 29.5 L MCV 97 MCH 31.3 MCHC 32.2 RDW 23.0 H Plt Count 69 L Seg Neutrophils % Not Reportable Lymphocytes % Not Reportable Monocytes % Not Reportable Eosinophils % Not Reportable Basophils % Not Reportable Absolute Neutrophils Not Reportable Absolute Lymphocytes Not Reportable Absolute Monocytes Not Reportable Absolute Eosinophils Not Reportable Absolute Basophils Not Reportable Carbonic Acid HCO3/H2CO3 Ratio ABG pH ABG pCO2 ABG pO2 ABG HCO3 ABG O2 Saturation ABG Base Excess FiO2 Sodium 146.3 H Potassium 3.7 Chloride 110 H Carbon Dioxide 27 Anion Gap 9 BUN 8 Creatinine 3.09 H Est GFR ( Amer) 19 L Est GFR (Non-Af Amer) 16 L Glucose 100 Calcium 11.2 H Magnesium 2.2 Fluid Glucose Fluid Total Protein Fluid LDH Fluid Amylase 09/29/18 09/29/18 09/29/18 10:44 10:44 12:59 Creatine Kinase Cancelled CK-MB (CK-2) Troponin I Cancelled 0.028 NT-Pro-B Natriuret Pep 09/29/18 09/29/18 09/29/18 12:59 15:30 15:30 Creatine Kinase 77 161 H CK-MB (CK-2) 2.69 Troponin I 0.028 NT-Pro-B Natriuret Pep 09/29/18 09/29/18 09/30/18 18:59 18:59 00:59 Creatine Kinase 201 H 197 H CK-MB (CK-2) 3.45 Troponin I 0.023 NT-Pro-B Natriuret Pep 09/30/18 10/01/18 10/03/18 00:59 04:13 04:50 Creatine Kinase CK-MB (CK-2) 2.94 Troponin I 0.021 NT-Pro-B Natriuret Pep 2270 H 3170 H 10/09/18 04:50 Creatine Kinase CK-MB (CK-2) Troponin I NT-Pro-B Natriuret Pep 630 Impressions: Head CT 10/03/18 00:00 IMPRESSION: CHRONIC CHANGES OF ATROPHY AND MICROVASCULAR ISCHEMIA. NO ACUTE PROCESS. EVIDENCE OF ACUTE STROKE: NO. KUB X-Ray 10/05/18 00:00 IMPRESSION: Nasogastric tube tip and side port in the stomach Abdomen/Pelvis CT 10/23/18 00:00 IMPRESSION: Marked right pleural effusion and compressive atelectasis or obstructive atelectasis of the right lung. Large left pleural effusion. Generalized ascites. Chest CT 10/23/18 00:00 IMPRESSION: Marked right pleural effusion and compressive atelectasis or obstructive atelectasis of the right lung. Large left pleural effusion. Generalized ascites. Chest Ultrasound 10/25/18 00:08 IMPRESSION: See above. Paracentesis Ultrasound 10/25/18 12:53 IMPRESSION: Successful ultrasound-guided paracentesis Chest X-Ray 10/28/18 06:00 IMPRESSION: Interval extubation. Assessment & Plan - Diagnosis (1) Acute kidney injury Is this a current diagnosis for this admission?: Yes Plan: Secondary to ATN due to septic shock. Urine output continues to decline while she remains to have anasarca. She continues to be on Lasix drip and scheduled IV albumin. We did dialysis today for 2.5 hours doing 1 and half hours of ultrafiltration and 1 hour of dialysis, using the patient's PermCath, with 3 potassium bath, blood flow rate of 250 mL per minute, dialysate flow rate of 500 mL per minute, ultrafiltration 2-3 L as tolerated, no and Procrit with 20,000 units during dialysis intravenously. Patient was monitored throughout dialysis treatment and has tolerated dialysis. We will continue dialysis here in the hospital for as long as the family consents and if he still needs it. However patient is not a candidate for chronic dialysis treatment. (2) Acute tubular necrosis Is this a current diagnosis for this admission?: Yes (3) Sepsis Qualifiers: Sepsis type: sepsis due to unspecified organism Qualified Code(s): A41.9 - Sepsis, unspecified organism Is this a current diagnosis for this admission?: Yes (4) Escherichia coli urinary tract infection Is this a current diagnosis for this admission?: Yes (5) Metabolic encephalopathy Is this a current diagnosis for this admission?: Yes Plan: Multifactorial due to septic shock, infection, and alcohol withdrawal. Seems to be slightly improved today. (6) Respiratory failure with hypoxia and hypercapnia Qualifiers: Chronicity: acute Qualified Code(s): J96.01 - Acute respiratory failure with hypoxia; J96.02 - Acute respiratory failure with hypercapnia Is this a current diagnosis for this admission?: Yes Plan: Currently extubated. (7) Hypoalbuminemia Is this a current diagnosis for this admission?: Yes Plan: Currently on scheduled IV albumin infusion. (8) Nosocomial pneumonia Is this a current diagnosis for this admission?: Yes (9) Alcoholism Is this a current diagnosis for this admission?: Yes Plan: She is currently being given multivitamins with alcohol withdrawal protocol. Likely to be the cause of her possible end-stage liver disease. (10) Anemia Qualifiers: Anemia type: other cause Other causes of anemia: chronic disease, other Qualified Code(s): D63.8 - Anemia in other chronic diseases classified elsewhere Is this a current diagnosis for this admission?: Yes Plan: Multifactorial causes including sepsis and patient is currently has the DIC being followed by her diabetic educator. Also strong consideration for possible liver disease. We will give her Procrit on dialysis. (11) DIC (disseminated intravascular coagulation) Is this a current diagnosis for this admission?: Yes Plan: Hematology following. Considering end-stage liver disease. (12) Hyperammonemia Is this a current diagnosis for this admission?: Yes Plan: The consensus in this patient may have advanced liver disease that is causing her coagulopathy and encephalopathy with elevated ammonia level. Dr. Higuera and Dr. Klein is been discussing this with the family. - Time Time with patient: 15-25 minutes
[2018-10-28] MEDS: THIAMINE HCL 100 MG TABLET NG SCH (12:11)
[2018-10-28] MEDS: MIDODRINE HCL 5 MG TABLET NG SCH ×2 (12:11→21:15)
[2018-10-28] MEDS: SODIUM BICARBONATE 650 MG TABLET PO SCH ×2 (12:11→21:15)
[2018-10-28] MEDS: NYSTATIN TOPICAL POWDER 15 GM TP SCH ×2 (12:12→21:16)
[2018-10-28] MEDS: NORMAL SALINE 1000 ML 1,000 ML with POTASSIUM CHLORIDE 20 MEQ, MAGNESIUM SULFATE 8 MEQ,... IV SCH ×4 (12:14)
--- NOTE | 2018-10-28 20:52 | PDOC PROGRESS REPORT ---
Subjective Progress Note for:: 10/28/18 Subjective:: Patient seen by the bedside she is alert, responding to verbal command, she continues to require intravenous pressor, she remains hypothermic, family still want everything done. She was hemodialyzed today Reason For Visit: SEPSIS, UTI, AMS, ACUTE KIDNEY INJURY, DELIRIUM Physical Exam Vital Signs: Temp Pulse Resp BP Pulse Ox 95.5 F L 85 13 136/82 H 99 10/28/18 19:47 10/28/18 20:16 10/28/18 20:16 10/28/18 18:01 10/28/18 20:16 Intake & Output 10/27/18 10/28/18 10/29/18 06:59 06:59 06:59 Intake Total 1670 1685 Output Total 3020 520 2690 Balance -1350 1165 -2690 Weight 88.8 kg 89.5 kg General appearance: PRESENT: no acute distress Eye exam: PRESENT: scleral icterus Respiratory exam: PRESENT: decreased breath sounds Cardiovascular exam: PRESENT: +S1, +S2 GI/Abdominal exam: PRESENT: soft Neurological exam: PRESENT: alert Results Laboratory Results: 10/28/18 03:41 10/28/18 03:41 10/28/18 10/28/18 10/28/18 03:41 03:41 03:41 WBC 11.0 H RBC 3.04 L Hgb 9.5 L Hct 29.5 L MCV 97 MCH 31.3 MCHC 32.2 RDW 23.0 H Plt Count 69 L Seg Neutrophils % Not Reportable Lymphocytes % Not Reportable Monocytes % Not Reportable Eosinophils % Not Reportable Basophils % Not Reportable Absolute Neutrophils Not Reportable Absolute Lymphocytes Not Reportable Absolute Monocytes Not Reportable Absolute Eosinophils Not Reportable Absolute Basophils Not Reportable Carbonic Acid 1.63 H HCO3/H2CO3 Ratio 16:1 ABG pH 7.32 L ABG pCO2 54.1 H ABG pO2 67.8 L ABG HCO3 26.9 H ABG O2 Saturation 91.7 L ABG Base Excess 0.2 FiO2 3L Sodium 146.3 H Potassium 3.7 Chloride 110 H Carbon Dioxide 27 Anion Gap 9 BUN 8 Creatinine 3.09 H Est GFR ( Amer) 19 L Est GFR (Non-Af Amer) 16 L Glucose 100 Calcium 11.2 H Magnesium 2.2 10/26/18 10:47 Bronchial Washings Gram Stain - Final 10/26/18 10:47 Bronchial Washings Bronchial Washings Culture - Final GREATLY REDUCED NORMAL CASEY 10/23/18 13:43 Blood Blood Culture - Final NO GROWTH IN 5 DAYS 10/23/18 13:30 Blood Blood Culture - Final NO GROWTH IN 5 DAYS 09/29/18 09/29/18 09/29/18 10:44 10:44 12:59 Creatine Kinase Cancelled CK-MB (CK-2) Troponin I Cancelled 0.028 NT-Pro-B Natriuret Pep 09/29/18 09/29/18 09/29/18 12:59 15:30 15:30 Creatine Kinase 77 161 H CK-MB (CK-2) 2.69 Troponin I 0.028 NT-Pro-B Natriuret Pep 09/29/18 09/29/18 09/30/18 18:59 18:59 00:59 Creatine Kinase 201 H 197 H CK-MB (CK-2) 3.45 Troponin I 0.023 NT-Pro-B Natriuret Pep 09/30/18 10/01/18 10/03/18 00:59 04:13 04:50 Creatine Kinase CK-MB (CK-2) 2.94 Troponin I 0.021 NT-Pro-B Natriuret Pep 2270 H 3170 H 10/09/18 04:50 Creatine Kinase CK-MB (CK-2) Troponin I NT-Pro-B Natriuret Pep 630 Impressions: Head CT 10/03/18 00:00 IMPRESSION: CHRONIC CHANGES OF ATROPHY AND MICROVASCULAR ISCHEMIA. NO ACUTE PROCESS. EVIDENCE OF ACUTE STROKE: NO. KUB X-Ray 10/05/18 00:00 IMPRESSION: Nasogastric tube tip and side port in the stomach Abdomen/Pelvis CT 10/23/18 00:00 IMPRESSION: Marked right pleural effusion and compressive atelectasis or obstructive atelectasis of the right lung. Large left pleural effusion. Generalized ascites. Chest CT 10/23/18 00:00 IMPRESSION: Marked right pleural effusion and compressive atelectasis or obstructive atelectasis of the right lung. Large left pleural effusion. Generalized ascites. Chest Ultrasound 10/25/18 00:08 IMPRESSION: See above. Paracentesis Ultrasound 10/25/18 12:53 IMPRESSION: Successful ultrasound-guided paracentesis Chest X-Ray 03/29/19 06:00 IMPRESSION: Interval extubation. Assessment & Plan - Diagnosis (1) Septic shock Is this a current diagnosis for this admission?: Yes (2) UTI (urinary tract infection) Qualifiers: Urinary tract infection type: site unspecified Hematuria presence: with hematuria Qualified Code(s): N39.0 - Urinary tract infection, site not specified; R31.9 - Hematuria, unspecified Is this a current diagnosis for this admission?: Yes (3) Hypokalemia Is this a current diagnosis for this admission?: Yes (4) Hypomagnesemia Is this a current diagnosis for this admission?: Yes (5) Alcohol abuse Is this a current diagnosis for this admission?: Yes (6) Metabolic encephalopathy Is this a current diagnosis for this admission?: Yes (7) Hyperammonemia Is this a current diagnosis for this admission?: Yes (8) Alcohol withdrawal Qualifiers: Complication of substance-induced condition: with delirium Qualified Code(s): F10.231 - Alcohol dependence with withdrawal delirium Is this a current diagnosis for this admission?: Yes (9) Respiratory failure with hypoxia and hypercapnia Qualifiers: Chronicity: acute Qualified Code(s): J96.01 - Acute respiratory failure with hypoxia; J96.02 - Acute respiratory failure with hypercapnia Is this a current diagnosis for this admission?: Yes Plan: Patient continues to require noninvasive positive pressure ventilation, BiPAP (10) Nosocomial pneumonia Is this a current diagnosis for this admission?: Yes (11) Hypotension Qualifiers: Hypotension type: unspecified hypotension type Qualified Code(s): I95.9 - Hypotension, unspecified Is this a current diagnosis for this admission?: Yes Plan: Continue IV pressor (12) Gastroparesis Is this a current diagnosis for this admission?: Yes (13) Acute kidney injury Is this a current diagnosis for this admission?: Yes Plan: She continues to require hemodialysis (14) DIC (disseminated intravascular coagulation) Is this a current diagnosis for this admission?: Yes
[2018-10-29] MEDS: IPRATROPIUM/ALBUTEROL 0.5-2.5 MG/3 ML AMPUL NEB SCH ×4 (02:09→19:57)
[2018-10-29 04:52] LABS: ANION GAP 11 (5-19); BLOOD UREA NITROGEN 7 mg/dL (7-20); CALCIUM 10.5 mg/dL (8.4-10.2); CARBON DIOXIDE 27 mmol/L (22-30); CHLORIDE 110 mmol/L (98-107); GLUCOSE 96 mg/dL (75-110); POTASSIUM 3.6 mmol/L (3.6-5.0); SODIUM 148.2 mmol/L (137-145)
[2018-10-29] MEDS: INSULIN LISPRO 100 UNIT/ML 3 ML VIAL SUBCUT SCH ×3 (05:09→17:26)
[2018-10-29] MEDS: LACTOBACILLUS ACIDOPHILUS 250 MG TAB NG SCH ×2 (05:10→17:26)
[2018-10-29] MEDS: NORMAL SALINE 250 ML with FUROSEMIDE 250 MG IV PRN ×4 (05:10→17:25)
[2018-10-29] MEDS: NORMAL SALINE 1000 ML 1,000 ML with POTASSIUM CHLORIDE 20 MEQ, MAGNESIUM SULFATE 8 MEQ,... IV SCH ×4 (08:51)
[2018-10-29] MEDS: ACETYLCYSTEINE 20% SOLN 800 MG/4 ML VIAL.NEB NEB SCH ×2 (08:57→19:57)
[2018-10-29] MEDS: SODIUM BICARBONATE 650 MG TABLET PO SCH ×2 (09:00→21:36)
[2018-10-29] MEDS: MIDODRINE HCL 5 MG TABLET NG SCH ×2 (09:00→21:36)
[2018-10-29] MEDS: THIAMINE HCL 100 MG TABLET NG SCH (09:00)
[2018-10-29] MEDS: NYSTATIN TOPICAL POWDER 15 GM TP SCH ×2 (09:01→17:26)
--- NOTE | 2018-10-29 11:54 | PDOC PROGRESS REPORT ---
Subjective Progress Note for:: 10/29/18 Subjective:: Remain on BiPAP support and IV Lasix. Ongoing hemodialysis as per nephrology directive. Demonstrate persistent hypothermia and currently on warming blanket Reason For Visit: SEPSIS, UTI, AMS, ACUTE KIDNEY INJURY, DELIRIUM Physical Exam Vital Signs: Temp Pulse Resp BP Pulse Ox 96.6 F L 91 31 H 150/89 H 100 10/29/18 10:00 10/29/18 10:00 10/29/18 10:00 10/29/18 10:00 10/29/18 10:00 Intake & Output 10/28/18 10/29/18 10/30/18 06:59 06:59 06:59 Intake Total 1685 1475 Output Total 520 3150 325 Balance 1165 -1675 -325 Weight 89.5 kg 87.4 kg General appearance: PRESENT: mild distress - on BiPAP support Head exam: PRESENT: atraumatic, normocephalic Eye exam: PRESENT: conjunctiva pink, scleral icterus Ear exam: PRESENT: TM's normal bilaterally Mouth exam: PRESENT: moist Respiratory exam: PRESENT: clear to auscultation dawna, decreased breath sounds - at lung bases Cardiovascular exam: PRESENT: RRR. ABSENT: diastolic murmur, rubs, systolic murmur Vascular exam: PRESENT: other - right groin dialysis catheter site satisfactory.. ABSENT: pallor GI/Abdominal exam: PRESENT: normal bowel sounds, soft. ABSENT: distended, guarding, mass, organolmegaly, rebound, tenderness Rectal exam: PRESENT: deferred Extremities exam: ABSENT: pedal edema Musculoskeletal exam: ABSENT: tenderness Neurological exam: PRESENT: altered - but responded to verbal commmands and withdraw from painful stimuli Skin exam: PRESENT: dry, warm Results Laboratory Results: 10/28/18 03:41 10/29/18 04:31 10/29/18 04:31 Sodium 148.2 H Potassium 3.6 Chloride 110 H Carbon Dioxide 27 Anion Gap 11 BUN 7 Creatinine 2.76 H Est GFR ( Amer) 22 L Est GFR (Non-Af Amer) 18 L Glucose 96 Calcium 10.5 H Magnesium 2.1 10/25/18 15:50 Pleural Fluid - Left Pleural Effusion Gram Stain - Final 10/25/18 15:50 Pleural Fluid - Left Pleural Effusion Body Fluid Culture - Final NO AEROBIC OR ANAEROBIC ORGANISMS RECOVERED 10/26/18 10:47 Bronchial Washings Gram Stain - Final 10/26/18 10:47 Bronchial Washings Bronchial Washings Culture - Final GREATLY REDUCED NORMAL CASEY 10/23/18 13:43 Blood Blood Culture - Final NO GROWTH IN 5 DAYS 10/23/18 13:30 Blood Blood Culture - Final NO GROWTH IN 5 DAYS 09/29/18 09/29/18 09/29/18 10:44 10:44 12:59 Creatine Kinase Cancelled CK-MB (CK-2) Troponin I Cancelled 0.028 NT-Pro-B Natriuret Pep 09/29/18 09/29/18 09/29/18 12:59 15:30 15:30 Creatine Kinase 77 161 H CK-MB (CK-2) 2.69 Troponin I 0.028 NT-Pro-B Natriuret Pep 09/29/18 09/29/18 09/30/18 18:59 18:59 00:59 Creatine Kinase 201 H 197 H CK-MB (CK-2) 3.45 Troponin I 0.023 NT-Pro-B Natriuret Pep 09/30/18 10/01/18 10/03/18 00:59 04:13 04:50 Creatine Kinase CK-MB (CK-2) 2.94 Troponin I 0.021 NT-Pro-B Natriuret Pep 2270 H 3170 H 10/09/18 04:50 Creatine Kinase CK-MB (CK-2) Troponin I NT-Pro-B Natriuret Pep 630 Impressions: Head CT 10/03/18 00:00 IMPRESSION: CHRONIC CHANGES OF ATROPHY AND MICROVASCULAR ISCHEMIA. NO ACUTE PROCESS. EVIDENCE OF ACUTE STROKE: NO. KUB X-Ray 10/05/18 00:00 IMPRESSION: Nasogastric tube tip and side port in the stomach Abdomen/Pelvis CT 10/23/18 00:00 IMPRESSION: Marked right pleural effusion and compressive atelectasis or obstructive atelectasis of the right lung. Large left pleural effusion. Generalized ascites. Chest CT 10/23/18 00:00 IMPRESSION: Marked right pleural effusion and compressive atelectasis or obstructive atelectasis of the right lung. Large left pleural effusion. Generalized ascites. Chest Ultrasound 10/25/18 00:08 IMPRESSION: See above. Paracentesis Ultrasound 10/25/18 12:53 IMPRESSION: Successful ultrasound-guided paracentesis Chest X-Ray 10/28/18 06:00 IMPRESSION: Interval extubation. Assessment & Plan - Diagnosis (1) Alcohol withdrawal delirium Is this a current diagnosis for this admission?: Yes Plan: Continue current supplementation and replacement therapy. (2) Metabolic encephalopathy Is this a current diagnosis for this admission?: Yes Plan: Combination of the alcohol abuse and infectious process. Maintain on current therapy and alcohol withdrawal treatment. (3) Respiratory failure with hypoxia and hypercapnia Qualifiers: Chronicity: acute Qualified Code(s): J96.01 - Acute respiratory failure with hypoxia; J96.02 - Acute respiratory failure with hypercapnia Is this a current diagnosis for this admission?: Yes Plan: Probably from her pneumonia. Maintain on current therapy. Follow CBC indices. (4) Septic shock Is this a current diagnosis for this admission?: Yes Plan: Probably secondary to her underlying pneumonia. Continue current medication management. (5) Nosocomial pneumonia Is this a current diagnosis for this admission?: Yes Plan: Currently completed course of antibiotic therapy. Continue to monitor her indices. Hypothermia may be due to chronic alcohol abuse and thermo-regulatory d isorder. (6) COPD (chronic obstructive pulmonary disease) Qualifiers: COPD type: unspecified COPD Qualified Code(s): J44.9 - Chronic obstructive pulmonary disease, unspecified Is this a current diagnosis for this admission?: Yes Plan: Continue current medication management and ventilatory support. - Time Time Spent with patient: 25-34 minutes Medications reviewed and adjusted accordingly: Yes Anticipated discharge: SNF Within: Other - Inpatient Certification Based on my medical assessment, after consideration of the patient's comorbidities, presenting symptoms, or acuity I expect that the services needed warrant INPATIENT care.: Yes I certify that my determination is in accordance with my understanding of Medicare's requirements for reasonable and necessary INPATIENT services [42 CFR 412.3e].: Yes Medical Necessity: Significant Comorbidiites Make Outpatient Treatment Too Risky, Need Close Monitoring Due to Risk of Patient Decompensation, Need For IV Fluids, Need For Continuous Telemetry Monitoring, Need for Nebulizer Therapy and Monitoring of Response, Risk of Complication if Not Cared For in Hospital, Risk of Diagnosis Which Will Require Inpatient Eval/Care/Monitoring Post Hospital Care: D/C or Transfer Summary - Plan Summary Plan Summary: Continue current medication management. Obtain CBC with Diff, CMP in am.
[2018-10-30] MEDS: INSULIN LISPRO 100 UNIT/ML 3 ML VIAL SUBCUT SCH ×4 (00:36→17:18)
[2018-10-30] MEDS: IPRATROPIUM/ALBUTEROL 0.5-2.5 MG/3 ML AMPUL NEB SCH ×4 (02:41→19:53)
[2018-10-30] MEDS: LACTOBACILLUS ACIDOPHILUS 250 MG TAB NG SCH ×2 (05:09→17:18)
[2018-10-30 05:24] LABS: ABSOLUTE BASOPHILS # (AUTO) 0.1 10^3/uL (0.0-0.2); ABSOLUTE EOSINOPHILS # (AUTO) 0.6 10^3/uL (0.0-0.6); ABSOLUTE LYMPHOCYTES (AUTO) 1.5 10^3/uL (0.5-4.7); ABSOLUTE MONOCYTES (AUTO) 1.1 10^3/uL (0.1-1.4); ABSOLUTE NEUT (AUTO) 6.8 10^3/uL (1.7-8.2); BASOPHILS % (AUTO) 1.3 % (0-2); EOSINOPHILS % (AUTO) 5.5 % (0-6); HEMATOCRIT 28.3 % (36.0-47.0); HEMOGLOBIN 9.3 g/dL (12.0-15.5); LYMPHOCYTES % (AUTO) 14.8 % (13-45); MEAN CORPUSCULAR HEMOGLOBIN 31.5 pg (27.0-33.4); MEAN CORPUSCULAR HGB CONC 32.9 g/dL (32.0-36.0); MEAN CORPUSCULAR VOLUME 96 fl (80-97); MONOCYTES % (AUTO) 10.5 % (3-13); RED BLOOD COUNT 2.95 10^6/uL (3.72-5.28); RED CELL DISTRIBUTION WIDTH 23.8 % (11.5-14.0); SEGMENTED NEUTROPHILS % (AUTO) 67.9 % (42-78); TOTAL CELLS COUNTED % (AUTO) 100 %
[2018-10-30 05:31] LABS: PLATELET COUNT 54 10^3/uL (150-450)
[2018-10-30 05:35] LABS: ALANINE AMINOTRANSFERASE 16 U/L (9-52); ALBUMIN 2.9 g/dL (3.5-5.0); ALKALINE PHOSPHATASE 96 U/L (38-126); ANION GAP 9 (5-19); ASPARTATE AMINO TRANSFERASE 25 U/L (14-36); BILIRUBIN,DIRECT 1.6 mg/dL (0.0-0.4); BLOOD UREA NITROGEN 8 mg/dL (7-20); CALCIUM 10.8 mg/dL (8.4-10.2); CARBON DIOXIDE 27 mmol/L (22-30); CHLORIDE 112 mmol/L (98-107); GLUCOSE 102 mg/dL (75-110); POTASSIUM 3.5 mmol/L (3.6-5.0); SODIUM 147.8 mmol/L (137-145); TOTAL PROTEIN 6.2 g/dL (6.3-8.2)
[2018-10-30] MEDS: NORMAL SALINE 250 ML with FUROSEMIDE 250 MG IV PRN ×4 (05:59→17:29)
[2018-10-30] MEDS: ACETYLCYSTEINE 20% SOLN 800 MG/4 ML VIAL.NEB NEB SCH ×2 (08:53→19:53)
[2018-10-30] MEDS: SODIUM BICARBONATE 650 MG TABLET PO SCH ×2 (09:21→21:24)
[2018-10-30] MEDS: NYSTATIN TOPICAL POWDER 15 GM TP SCH ×2 (09:21→17:18)
[2018-10-30] MEDS: THIAMINE HCL 100 MG TABLET NG SCH (09:21)
[2018-10-30] MEDS: MIDODRINE HCL 5 MG TABLET NG SCH ×2 (09:21→21:22)
[2018-10-30] MEDS: AMINO AC/PROTEIN HYDR/WHEY PRO 11 GM/45 ML PKT NG SCH ×3 (09:26→17:18)
[2018-10-30] MEDS: NORMAL SALINE 1000 ML 1,000 ML with POTASSIUM CHLORIDE 20 MEQ, MAGNESIUM SULFATE 8 MEQ,... IV SCH ×4 (09:26)
--- NOTE | 2018-10-30 10:45 | PDOC PROGRESS REPORT ---
Subjective Progress Note for:: 10/30/18 Subjective:: Remain on BiPAP support. Tolerating enteral tube feeding. Body temperature is improving. Reason For Visit: SEPSIS, UTI, AMS, ACUTE KIDNEY INJURY, DELIRIUM Physical Exam Vital Signs: Temp Pulse Resp BP Pulse Ox 97.3 F 90 15 152/112 H 100 10/30/18 10:00 10/30/18 10:00 10/30/18 10:00 10/30/18 10:00 10/30/18 10:00 Intake & Output 10/29/18 10/30/18 10/31/18 06:59 06:59 06:59 Intake Total 1475 1692 Output Total 3150 1745 360 Balance -1675 -53 -360 Weight 87.4 kg 86.4 kg Physical Exam: General appearance: PRESENT: mild distress - on BiPAP support Head exam: PRESENT: atraumatic, normocephalic Eye exam: PRESENT: conjunctiva pink, ABSENT: pallor, scleral icterus Ear exam: PRESENT: TM's normal bilaterally Mouth exam: PRESENT: moist Respiratory exam: PRESENT: clear to auscultation dawna, decreased breath sounds - at lung bases Cardiovascular exam: PRESENT: RRR. ABSENT: diastolic murmur, rubs, systolic m urmur Vascular exam: PRESENT: other - right groin dialysis catheter site satisfactory. GI/Abdominal exam: PRESENT: normal bowel sounds, soft. ABSENT: distended, guarding, mass, organomegaly, rebound, tenderness Extremities exam: ABSENT: pedal edema Musculoskeletal exam: ABSENT: tenderness Neurological exam: PRESENT: altered - but responded to verbal commands and withdraw from painful stimuli Skin exam: PRESENT: dry, warm Results Laboratory Results: 10/30/18 05:17 10/30/18 05:17 10/30/18 10/30/18 05:17 05:17 WBC 10.0 RBC 2.95 L Hgb 9.3 L Hct 28.3 L MCV 96 MCH 31.5 MCHC 32.9 RDW 23.8 H Plt Count 54 L Seg Neutrophils % 67.9 Lymphocytes % 14.8 Monocytes % 10.5 Eosinophils % 5.5 Basophils % 1.3 Absolute Neutrophils 6.8 Absolute Lymphocytes 1.5 Absolute Monocytes 1.1 Absolute Eosinophils 0.6 Absolute Basophils 0.1 Sodium 147.8 H Potassium 3.5 L Chloride 112 H Carbon Dioxide 27 Anion Gap 9 BUN 8 Creatinine 2.61 H Est GFR ( Amer) 23 L Est GFR (Non-Af Amer) 19 L Glucose 102 Calcium 10.8 H Magnesium 2.1 Total Bilirubin 2.0 H AST 25 ALT 16 Alkaline Phosphatase 96 Total Protein 6.2 L Albumin 2.9 L 10/25/18 15:50 Pleural Fluid - Left Pleural Effusion Gram Stain - Final 10/25/18 15:50 Pleural Fluid - Left Pleural Effusion Body Fluid Culture - Final NO AEROBIC OR ANAEROBIC ORGANISMS RECOVERED 09/29/18 09/29/18 09/29/18 10:44 10:44 12:59 Creatine Kinase Cancelled CK-MB (CK-2) Troponin I Cancelled 0.028 NT-Pro-B Natriuret Pep 09/29/18 09/29/18 09/29/18 12:59 15:30 15:30 Creatine Kinase 77 161 H CK-MB (CK-2) 2.69 Troponin I 0.028 NT-Pro-B Natriuret Pep 09/29/18 09/29/18 09/30/18 18:59 18:59 00:59 Creatine Kinase 201 H 197 H CK-MB (CK-2) 3.45 Troponin I 0.023 NT-Pro-B Natriuret Pep 09/30/18 10/01/18 10/03/18 00:59 04:13 04:50 Creatine Kinase CK-MB (CK-2) 2.94 Troponin I 0.021 NT-Pro-B Natriuret Pep 2270 H 3170 H 10/09/18 04:50 Creatine Kinase CK-MB (CK-2) Troponin I NT-Pro-B Natriuret Pep 630 Impressions: Head CT 10/03/18 00:00 IMPRESSION: CHRONIC CHANGES OF ATROPHY AND MICROVASCULAR ISCHEMIA. NO ACUTE PROCESS. EVIDENCE OF ACUTE STROKE: NO. KUB X-Ray 10/05/18 00:00 IMPRESSION: Nasogastric tube tip and side port in the stomach Abdomen/Pelvis CT 10/23/18 00:00 IMPRESSION: Marked right pleural effusion and compressive atelectasis or obstructive atelectasis of the right lung. Large left pleural effusion. Generalized ascites. Chest CT 10/23/18 00:00 IMPRESSION: Marked right pleural effusion and compressive atelectasis or obstructive atelectasis of the right lung. Large left pleural effusion. Generalized ascites. Chest Ultrasound 10/25/18 00:08 IMPRESSION: See above. Paracentesis Ultrasound 10/25/18 12:53 IMPRESSION: Successful ultrasound-guided paracentesis Chest X-Ray 10/28/18 06:00 IMPRESSION: Interval extubation. Assessment & Plan - Diagnosis (1) Alcohol withdrawal delirium Is this a current diagnosis for this admission?: Yes (2) Metabolic encephalopathy Is this a current diagnosis for this admission?: Yes (3) Respiratory failure with hypoxia and hypercapnia Qualifiers: Chronicity: acute Qualified Code(s): J96.01 - Acute respiratory failure w ith hypoxia; J96.02 - Acute respiratory failure with hypercapnia Is this a current diagnosis for this admission?: Yes (4) Septic shock Is this a current diagnosis for this admission?: Yes (5) Nosocomial pneumonia Is this a current diagnosis for this admission?: Yes (6) COPD (chronic obstructive pulmonary disease) Qualifiers: COPD type: unspecified COPD Qualified Code(s): J44.9 - Chronic obstructive pulmonary disease, unspecified Is this a current diagnosis for this admission?: Yes - Time Time Spent with patient: 25-34 minutes Medications reviewed and adjusted accordingly: Yes - Inpatient Certification Based on my medical assessment, after consideration of the patient's comorbidities, presenting symptoms, or acuity I expect that the services needed warrant INPATIENT care.: Yes I certify that my determination is in accordance with my understanding of Medicare's requirements for reasonable and necessary INPATIENT services [42 CFR 412.3e].: Yes Medical Necessity: Significant Comorbidiites Make Outpatient Treatment Too R isky, Need Close Monitoring Due to Risk of Patient Decompensation, Need For IV Fluids, Need For Continuous Telemetry Monitoring, Need for Nebulizer Therapy and Monitoring of Response, Risk of Complication if Not Cared For in Hospital, Risk of Diagnosis Which Will Require Inpatient Eval/Care/Monitoring Post Hospital Care: D/C [employer] Documentation - Plan Summary Plan Summary: Continue current medication management.
[2018-10-30] MEDS ORDERED: ENALAPRILAT DIHYDRATE INJ/PF 1.25 MG/1 ML SDV IV PRN (12:57)
[2018-10-31] MEDS: INSULIN LISPRO 100 UNIT/ML 3 ML VIAL SUBCUT SCH ×4 (00:18→17:47)
[2018-10-31] MEDS: IPRATROPIUM/ALBUTEROL 0.5-2.5 MG/3 ML AMPUL NEB SCH ×4 (02:18→20:57)
[2018-10-31 04:37] LABS: ANION GAP 9 (5-19); BLOOD UREA NITROGEN 11 mg/dL (7-20); CALCIUM 11.2 mg/dL (8.4-10.2); CARBON DIOXIDE 29 mmol/L (22-30); CHLORIDE 111 mmol/L (98-107); GLUCOSE 116 mg/dL (75-110); POTASSIUM 3.4 mmol/L (3.6-5.0); SODIUM 148.7 mmol/L (137-145)
[2018-10-31] MEDS: LACTOBACILLUS ACIDOPHILUS 250 MG TAB NG SCH ×2 (05:15→17:47)
[2018-10-31] MEDS: NORMAL SALINE 250 ML with FUROSEMIDE 250 MG IV PRN ×2 (06:04)
[2018-10-31] MEDS: ACETYLCYSTEINE 20% SOLN 800 MG/4 ML VIAL.NEB NEB SCH ×2 (08:26→20:57)
[2018-10-31] MEDS: MIDODRINE HCL 5 MG TABLET NG SCH ×2 (09:11→22:11)
[2018-10-31] MEDS: AMINO AC/PROTEIN HYDR/WHEY PRO 11 GM/45 ML PKT NG SCH ×3 (09:12→17:47)
[2018-10-31] MEDS: THIAMINE HCL 100 MG TABLET NG SCH (09:13)
[2018-10-31] MEDS: NORMAL SALINE 1000 ML 1,000 ML with POTASSIUM CHLORIDE 20 MEQ, MAGNESIUM SULFATE 8 MEQ,... IV SCH ×4 (09:13)
[2018-10-31] MEDS: NYSTATIN TOPICAL POWDER 15 GM TP SCH ×2 (09:13→17:47)
[2018-10-31] MEDS: SODIUM BICARBONATE 650 MG TABLET PO SCH (09:13)
--- NOTE | 2018-10-31 16:12 | Operative Report ---
Operative Report DATE OF SURGERY: 10/13/18 Operative Report: Recurring atelectasis right lung while mechanical ventilation FiO2 requirements and increasing respiratory rate PREOPERATIVE DIAGNOSIS: complete r lung atelectasis POSTOPERATIVE DIAGNOSIS: Same OPERATION: fiberoptic bronchoscopy w bronchoalveolar lavage SURGEON: MATILDE WHITE ANESTHESIA: GA TISSUE REMOVED OR ALTERED: none COMPLICATIONS: none ESTIMATED BLOOD LOSS: 0cc
--- NOTE | 2018-10-31 16:20 | PDOC PROGRESS REPORT ---
Subjective Progress Note for:: 10/31/18 Subjective:: Patient continues to be requiring BiPAP. However she seems to be a little bit more awake and alert and responding minimally to some questions. Over the weekend her urine output is improved and she has been making anywhere between 1.7-2.5 L of urine for the last 48 hours. Her kidney function is unchanged but not worse. Due to the improved urine output patient will not be dialyzed today. Reason For Visit: SEPSIS, UTI, AMS, ACUTE KIDNEY INJURY, DELIRIUM Physical Exam Vital Signs: Temp Pulse Resp BP Pulse Ox 98.6 F 101 H 13 125/80 96 10/31/18 10:30 10/31/18 10:00 10/31/18 10:30 10/31/18 10:16 10/31/18 10:30 Intake & Output 10/30/18 10/31/18 11/01/18 06:59 06:59 06:59 Intake Total 1692 1848 Output Total 1749 5535 430 Balance -53 -747 -430 Weight 86.4 kg 85.7 kg Exam: General appearance: PRESENT: On BiPAP but answers questions minimally Head exam: PRESENT: atraumatic, normocephalic Eye exam: PRESENT: conjunctiva pale, PERRLA. ABSENT: scleral icterus Neck exam: ABSENT: JVD Respiratory exam: PRESENT: Diminished breath sounds. ABSENT: crackles, rales, rhonchi, unlabored, wheezes Cardiovascular exam: PRESENT: Regular rate rhythm -+S1, +S2. ABSENT: diastolic murmur, systolic murmur GI/Abdominal exam: PRESENT: normal bowel sounds, soft. ABSENT: guarding, mass, tenderness Extremities exam: Improved grade 1 bilateral lower extremity pitting edema however he still has significant edema in the dependent portion of her thighs and buttocks, left arm swelling is significantly improved Neurological exam: PRESENT: alert, awake, minimal response to questions. Skin exam: PRESENT: dry, warm, Cardiovascular exam: PRESENT: +S1, +S2, systolic murmur GI/Abdominal exam: PRESENT: normal bowel sounds, soft. ABSENT: organomegaly, tenderness Results Laboratory Results: 10/30/18 05:17 10/31/18 04:19 10/31/18 04:19 Sodium 148.7 H Potassium 3.4 L Chloride 111 H Carbon Dioxide 29 Anion Gap 9 BUN 11 Creatinine 2.83 H Est GFR ( Amer) 21 L Est GFR (Non-Af Amer) 17 L Glucose 116 H Calcium 11.2 H Magnesium 2.1 09/29/18 09/29/18 09/29/18 10:44 10:44 12:59 Creatine Kinase Cancelled CK-MB (CK-2) Troponin I Cancelled 0.028 NT-Pro-B Natriuret Pep 09/29/18 09/29/18 09/29/18 12:59 15:30 15:30 Creatine Kinase 77 161 H CK-MB (CK-2) 2.69 Troponin I 0.028 NT-Pro-B Natriuret Pep 09/29/18 09/29/18 09/30/18 18:59 18:59 00:59 Creatine Kinase 201 H 197 H CK-MB (CK-2) 3.45 Troponin I 0.023 NT-Pro-B Natriuret Pep 09/30/18 10/01/18 10/03/18 00:59 04:13 04:50 Creatine Kinase CK-MB (CK-2) 2.94 Troponin I 0.021 NT-Pro-B Natriuret Pep 2270 H 3170 H 10/09/18 04:50 Creatine Kinase CK-MB (CK-2) Troponin I NT-Pro-B Natriuret Pep 630 Impressions: Head CT 10/03/18 00:00 IMPRESSION: CHRONIC CHANGES OF ATROPHY AND MICROVASCULAR ISCHEMIA. NO ACUTE PROCESS. EVIDENCE OF ACUTE STROKE: NO. KUB X-Ray 10/05/18 00:00 IMPRESSION: Nasogastric tube tip and side port in the stomach Abdomen/Pelvis CT 10/23/18 00:00 IMPRESSION: Marked right pleural effusion and compressive atelectasis or obstructive atelectasis of the right lung. Large left pleural effusion. Generalized ascites. Chest CT 10/23/18 00:00 IMPRESSION: Marked right pleural effusion and compressive atelectasis or obstructive atelectasis of the right lung. Large left pleural effusion. Generalized ascites. Chest Ultrasound 10/25/18 00:08 IMPRESSION: See above. Paracentesis Ultrasound 10/25/18 12:53 IMPRESSION: Successful ultrasound-guided paracentesis Chest X-Ray 10/28/18 06:00 IMPRESSION: Interval extubation. Assessment & Plan - Diagnosis (1) Acute tubular necrosis Is this a current diagnosis for this admission?: Yes (2) Acute kidney injury Is this a current diagnosis for this admission?: Yes Plan: Secondary to ATN due to septic shock. Urine output has improved for the last 72 hours at least. We will hold any further dialysis treatment at this time. Continue to monitor kidney function and electrolytes. Discontinue Lasix drip at this point. (3) Hypokalemia Is this a current diagnosis for this admission?: Yes Plan: Replace as necessary. (4) Hypernatremia Is this a current diagnosis for this admission?: Yes Plan: Likely due to Lasix drip in the face of improved urine output. Discontinue Lasix drip. Patient might need hypotonic fluids if it continues to go. (5) Sepsis Qualifiers: Sepsis type: sepsis due to unspecified organism Qualified Code(s): A41.9 - Sepsis, unspecified organism Is this a current diagnosis for this admission?: Yes (6) Escherichia coli urinary tract infection Is this a current diagnosis for this admission?: Yes (7) Metabolic encephalopathy Is this a current diagnosis for this admission?: Yes Plan: Multifactorial due to septic shock, infection, and alcohol withdrawal. Seems to be slightly improved today. (8) Respiratory failure with hypoxia and hypercapnia Qualifiers: Chronicity: acute Qualified Code(s): J96.01 - Acute respiratory failure with hypoxia; J96.02 - Acute respiratory failure with hypercapnia Is this a current diagnosis for this admission?: Yes Plan: Maintain on BiPAP. (9) Hypoalbuminemia Is this a current diagnosis for this admission?: Yes Plan: Currently on scheduled IV albumin infusion. (10) Nosocomial pneumonia Is this a current diagnosis for this admission?: Yes (11) Alcoholism Is this a current diagnosis for this admission?: Yes Plan: Likely to be the cause of her possible end-stage liver disease. (12) Anemia Qualifiers: Anemia type: other cause Other causes of anemia: chronic disease, other Qualified Code(s): D63.8 - Anemia in other chronic diseases classified elsewhere Is this a current diagnosis for this admission?: Yes Plan: Multifactorial causes including sepsis and patient is currently has the DIC being followed by her charge nurse. Also strong consideration for possible liver disease. (13) DIC (disseminated intravascular coagulation) Is this a current diagnosis for this admission?: Yes Plan: Hematology following. Considering end-stage liver disease. (14) Hyperammonemia Is this a current diagnosis for this admission?: Yes Plan: The consensus in this patient may have advanced liver disease that is causing her coagulopathy and encephalopathy with elevated ammonia level. Dr. Higuera and Dr. Klein is been discussing this with the family. - Time Time with patient: 15-25 minutes
--- NOTE | 2018-10-31 19:18 | PDOC PROGRESS REPORT ---
Subjective Progress Note for:: 10/31/18 Subjective:: Patient seen by the bedside, she continues to require BiPAP, she is alert, I had a long discussion with family members including her parents and siblings Reason For Visit: SEPSIS, UTI, AMS, ACUTE KIDNEY INJURY, DELIRIUM Physical Exam Vital Signs: Temp Pulse Resp BP Pulse Ox 99.1 F 106 H 14 128/111 H 96 10/31/18 18:16 10/31/18 16:00 10/31/18 18:16 10/31/18 18:15 10/31/18 18:16 Intake & Output 10/30/18 10/31/18 11/01/18 06:59 06:59 06:59 Intake Total 1692 1848 1203 Output Total 0593 5570 1405 Balance -53 -747 -202 Weight 86.4 kg 85.7 kg General appearance: PRESENT: no acute distress Eye exam: PRESENT: PERRLA Respiratory exam: PRESENT: decreased breath sounds Cardiovascular exam: PRESENT: +S1, +S2 GI/Abdominal exam: PRESENT: soft Results Laboratory Results: 10/30/18 05:17 10/31/18 04:19 10/31/18 04:19 Sodium 148.7 H Potassium 3.4 L Chloride 111 H Carbon Dioxide 29 Anion Gap 9 BUN 11 Creatinine 2.83 H Est GFR ( Amer) 21 L Est GFR (Non-Af Amer) 17 L Glucose 116 H Calcium 11.2 H Magnesium 2.1 09/29/18 09/29/18 09/29/18 10:44 10:44 12:59 Creatine Kinase Cancelled CK-MB (CK-2) Troponin I Cancelled 0.028 NT-Pro-B Natriuret Pep 09/29/18 09/29/18 09/29/18 12:59 15:30 15:30 Creatine Kinase 77 161 H CK-MB (CK-2) 2.69 Troponin I 0.028 NT-Pro-B Natriuret Pep 09/29/18 09/29/18 09/30/18 18:59 18:59 00:59 Creatine Kinase 201 H 197 H CK-MB (CK-2) 3.45 Troponin I 0.023 NT-Pro-B Natriuret Pep 09/30/18 10/01/18 10/03/18 00:59 04:13 04:50 Creatine Kinase CK-MB (CK-2) 2.94 Troponin I 0.021 NT-Pro-B Natriuret Pep 2270 H 3170 H 10/09/18 04:50 Creatine Kinase CK-MB (CK-2) Troponin I NT-Pro-B Natriuret Pep 630 Impressions: Head CT 10/03/18 00:00 IMPRESSION: CHRONIC CHANGES OF ATROPHY AND MICROVASCULAR ISCHEMIA. NO ACUTE PROCESS. EVIDENCE OF ACUTE STROKE: NO. KUB X-Ray 10/05/18 00:00 IMPRESSION: Nasogastric tube tip and side port in the stomach Abdomen/Pelvis CT 10/23/18 00:00 IMPRESSION: Marked right pleural effusion and compressive atelectasis or obstru ctive atelectasis of the right lung. Large left pleural effusion. Generalized ascites. Chest CT 10/23/18 00:00 IMPRESSION: Marked right pleural effusion and compressive atelectasis or obstructive atelectasis of the right lung. Large left pleural effusion. Generalized ascites. Chest Ultrasound 10/25/18 00:08 IMPRESSION: See above. Paracentesis Ultrasound 10/25/18 12:53 IMPRESSION: Successful ultrasound-guided paracentesis Chest X-Ray 10/28/18 06:00 IMPRESSION: Interval extubation. Assessment & Plan - Diagnosis (1) Septic shock Is this a current diagnosis for this admission?: Yes (2) UTI (urinary tract infection) Qualifiers: Urinary tract infection type: site unspecified Hematuria presence: with hematuria Qualified Code(s): N39.0 - Urinary tract infection, site not specified; R31.9 - Hematuria, unspecified Is this a current diagnosis for this admission?: Yes (3) Hypokalemia Is this a current diagnosis for this admission?: Yes (4) Hypomagnesemia Is this a current diagnosis for this admission?: Yes (5) Alcohol abuse Is this a current diagnosis for this admission?: Yes (6) Metabolic encephalopathy Is this a current diagnosis for this admission?: Yes (7) Hyperammonemia Is this a current diagnosis for this admission?: Yes (8) Alcohol withdrawal Qualifiers: Complication of substance-induced condition: with delirium Qualified Code(s): F10.231 - Alcohol dependence with withdrawal delirium Is this a current diagnosis for this admission?: Yes (9) Respiratory failure with hypoxia and hypercapnia Qualifiers: Chronicity: acute Qualified Code(s): J96.01 - Acute respiratory failure with hypoxia; J96.02 - Acute respiratory failure with hypercapnia Is this a current diagnosis for this admission?: Yes (10) Nosocomial pneumonia Is this a current diagnosis for this admission?: Yes (11) Hypotension Qualifiers: Hypotension type: unspecified hypotension type Qualified Code(s): I95.9 - Hypotension, unspecified Is this a current diagnosis for this admission?: Yes (12) Gastroparesis Is this a current diagnosis for this admission?: Yes (13) Acute kidney injury Is this a current diagnosis for this admission?: Yes (14) DIC (disseminated intravascular coagulation) Is this a current diagnosis for this admission?: Yes - Plan Summary Plan Summary: Patient to be downgraded to stepdown unit, overall prognosis is guarded
[2018-11-01] MEDS: INSULIN LISPRO 100 UNIT/ML 3 ML VIAL SUBCUT SCH ×4 (01:19→17:42)
[2018-11-01] MEDS: IPRATROPIUM/ALBUTEROL 0.5-2.5 MG/3 ML AMPUL NEB SCH ×4 (01:59→19:46)
[2018-11-01] MEDS: LACTOBACILLUS ACIDOPHILUS 250 MG TAB NG SCH ×2 (05:43→17:41)
[2018-11-01] MEDS: ACETYLCYSTEINE 20% SOLN 800 MG/4 ML VIAL.NEB NEB SCH ×2 (08:32→19:46)
--- NOTE | 2018-11-01 09:11 | PDOC PROGRESS REPORT ---
Subjective Progress Note for:: 10/22/18 Subjective:: intubated and sedated will extubate to bi-pap Reason For Visit: SEPSIS, UTI, AMS, ACUTE KIDNEY INJURY, DELIRIUM Physical Exam Vital Signs: Temp Pulse Resp BP Pulse Ox 96.4 F L 91 16 87/60 L 100 10/22/18 10:47 10/22/18 10:00 10/22/18 10:47 10/22/18 10:47 10/22/18 10:47 Intake & Output 10/21/18 10/22/18 10/23/18 06:59 06:59 06:59 Intake Total 2003 2614 59 Output Total 94765 1885 160 Balance -9265 729 -101 Weight 93.1 kg 91 kg General appearance: PRESENT: no acute distress, disheveled, well-developed, w ell-nourished Head exam: PRESENT: atraumatic, normocephalic Eye exam: PRESENT: conjunctiva pale, EOMI. ABSENT: nystagmus, periorbital swelling Mouth exam: PRESENT: dry mucosa, neck supple, tongue midline, other - ET Neck exam: ABSENT: carotid bruit, full ROM, JVD, lymphadenopathy, meningismus, tenderness, thyromegaly, tracheal deviation, tracheostomy, other Respiratory exam: PRESENT: crackles, decreased breath sounds, prolonged expiratory phas, rhonchi, unlabored. ABSENT: retraction, stridor Cardiovascular exam: PRESENT: RRR, +S1, +S2 Pulses: PRESENT: normal radial pulses GI/Abdominal exam: PRESENT: soft. ABSENT: tenderness Gentrourinary exam: PRESENT: indwelling catheter Extremities exam: PRESENT: pedal edema. ABSENT: calf tenderness, clubbing, joint swelling Musculoskeletal exam: ABSENT: ambulatory, deformity, dislocation Neurological exam: PRESENT: altered, awake Psychiatric exam: PRESENT: flat affect Skin exam: PRESENT: dry, warm Results Laboratory Results: 10/22/18 03:31 10/22/18 03:31 10/22/18 10/22/18 10/22/18 03:31 03:31 03:31 WBC 14.9 H RBC 2.50 L Hgb 8.1 L Hct 24.3 L MCV 97 MCH 32.5 MCHC 33.6 RDW 24.7 H Plt Count 61 L Seg Neutrophils % 76.6 Lymphocytes % 10.6 L Monocytes % 6.7 Eosinophils % 5.7 Basophils % 0.4 Absolute Neutrophils 11.4 H Absolute Lymphocytes 1.6 Absolute Monocytes 1.0 Absolute Eosinophils 0.8 H Absolute Basophils 0.1 Carbonic Acid 0.86 L HCO3/H2CO3 Ratio 27:1 ABG pH 7.53 H ABG pCO2 28.5 L ABG pO2 61.9 L ABG HCO3 23.4 ABG O2 Saturation 94.4 ABG Base Excess 1.2 FiO2 35% Sodium 142.4 Potassium 3.6 Chloride 110 H Carbon Dioxide 23 Anion Gap 9 BUN 9 Creatinine 2.61 H Est GFR ( Amer) 23 L Est GFR (Non-Af Amer) 19 L Glucose 91 Calcium 9.7 Magnesium 2.1 09/29/18 09/29/18 09/29/18 10:44 10:44 12:59 Creatine Kinase Cancelled CK-MB (CK-2) Troponin I Cancelled 0.028 NT-Pro-B Natriuret Pep 09/29/18 09/29/18 09/29/18 12:59 15:30 15:30 Creatine Kinase 77 161 H CK-MB (CK-2) 2.69 Troponin I 0.028 NT-Pro-B Natriuret Pep 09/29/18 09/29/18 09/30/18 18:59 18:59 00:59 Creatine Kinase 201 H 197 H CK-MB (CK-2) 3.45 Troponin I 0.023 NT-Pro-B Natriuret Pep 09/30/18 10/01/18 10/03/18 00:59 04:13 04:50 Creatine Kinase CK-MB (CK-2) 2.94 Troponin I 0.021 NT-Pro-B Natriuret Pep 2270 H 3170 H 10/09/18 04:50 Creatine Kinase CK-MB (CK-2) Troponin I NT-Pro-B Natriuret Pep 630 Impressions: Head CT 10/03/18 00:00 IMPRESSION: CHRONIC CHANGES OF ATROPHY AND MICROVASCULAR ISCHEMIA. NO ACUTE PROCESS. EVIDENCE OF ACUTE STROKE: NO. KUB X-Ray 10/05/18 00:00 IMPRESSION: Nasogastric tube tip and side port in the stomach Chest X-Ray 10/22/18 06:00 IMPRESSION: Little interval change copyright 2011 [employer]- All Rights Reserved Assessment & Plan - Diagnosis (1) Lactic acidosis Is this a current diagnosis for this admission?: Yes Plan: improving (2) Metabolic encephalopathy Is this a current diagnosis for this admission?: Yes Plan: improved somewhat (3) Respiratory failure with hypoxia and hypercapnia Qualifiers: Chronicity: acute Qualified Code(s): J96.01 - Acute respiratory failure with hypoxia; J96.02 - Acute respiratory failure with hypercapnia Is this a current diagnosis for this admission?: Yes Plan: will extubate (4) Septic shock Is this a current diagnosis for this admission?: Yes Plan: improved - Time Total Critical Time (Minutes): 55
--- NOTE | 2018-11-01 09:12 | PDOC PROGRESS REPORT ---
Subjective Progress Note for:: 10/23/18 Subjective:: 24h s/p extubation to bi-pap Reason For Visit: SEPSIS, UTI, AMS, ACUTE KIDNEY INJURY, DELIRIUM Physical Exam Vital Signs: Temp Pulse Resp BP Pulse Ox 97.2 F 94 16 94/52 L 89 L 10/23/18 11:09 10/23/18 10:00 10/23/18 11:09 10/23/18 11:09 10/23/18 11:09 Intake & Output 10/22/18 10/23/18 10/24/18 06:59 06:59 06:59 Intake Total 2614 2627 907 Output Total 1885 980 170 Balance 729 1647 737 Weight 91 kg 92.9 kg Results Laboratory Results: 10/23/18 04:00 10/23/18 04:00 10/22/18 10/23/18 10/23/18 11:25 04:00 04:00 WBC 10.7 H RBC 2.42 L Hgb 7.8 L Hct 23.8 L MCV 99 H MCH 32.1 MCHC 32.6 RDW 24.4 H Plt Count 60 L Seg Neutrophils % 71.5 Lymphocytes % 12.5 L Monocytes % 7.0 Eosinophils % 8.5 H Basophils % 0.5 Absolute Neutrophils 7.7 Absolute Lymphocytes 1.3 Absolute Monocytes 0.8 Absolute Eosinophils 0.9 H Absolute Basophils 0.1 Carbonic Acid HCO3/H2CO3 Ratio ABG pH ABG pCO2 ABG pO2 ABG HCO3 ABG O2 Saturation ABG Base Excess FiO2 Sodium 143.6 Potassium 3.4 L Chloride 110 H Carbon Dioxide 22 Anion Gap 12 BUN 9 Creatinine 3.22 H Est GFR ( Amer) 18 L Est GFR (Non-Af Amer) 15 L Glucose 85 Calcium 10.2 Magnesium 2.3 Total Bilirubin 1.5 H AST 25 ALT 18 Alkaline Phosphatase 104 Total Protein 6.0 L Albumin 2.8 L Blood Type B POSITIVE Antibody Screen NEGATIVE 10/23/18 04:40 WBC RBC Hgb Hct MCV MCH MCHC RDW Plt Count Seg Neutrophils % Lymphocytes % Monocytes % Eosinophils % Basophils % Absolute Neutrophils Absolute Lymphocytes Absolute Monocytes Absolute Eosinophils Absolute Basophils Carbonic Acid 1.45 H HCO3/H2CO3 Ratio 16:1 ABG pH 7.32 L ABG pCO2 48.1 H ABG pO2 61.3 L ABG HCO3 24.2 H ABG O2 Saturation 89.4 L ABG Base Excess -1.9 FiO2 40% Sodium Potassium Chloride Carbon Dioxide Anion Gap BUN Creatinine Est GFR ( Amer) Est GFR (Non-Af Amer) Glucose Calcium Magnesium Total Bilirubin AST ALT Alkaline Phosphatase Total Protein Albumin Blood Type Antibody Screen 09/29/18 09/29/18 09/29/18 10:44 10:44 12:59 Creatine Kinase Cancelled CK-MB (CK-2) Troponin I Cancelled 0.028 NT-Pro-B Natriuret Pep 09/29/18 09/29/18 09/29/18 12:59 15:30 15:30 Creatine Kinase 77 161 H CK-MB (CK-2) 2.69 Troponin I 0.028 NT-Pro-B Natriuret Pep 09/29/18 09/29/18 09/30/18 18:59 18:59 00:59 Creatine Kinase 201 H 197 H CK-MB (CK-2) 3.45 Troponin I 0.023 NT-Pro-B Natriuret Pep 09/30/18 10/01/18 10/03/18 00:59 04:13 04:50 Creatine Kinase CK-MB (CK-2) 2.94 Troponin I 0.021 NT-Pro-B Natriuret Pep 2270 H 3170 H 10/09/18 04:50 Creatine Kinase CK-MB (CK-2) Troponin I NT-Pro-B Natriuret Pep 630 Impressions: Head CT 10/03/18 00:00 IMPRESSION: CHRONIC CHANGES OF ATROPHY AND MICROVASCULAR ISCHEMIA. NO ACUTE PROCESS. EVIDENCE OF ACUTE STROKE: NO. KUB X-Ray 10/05/18 00:00 IMPRESSION: Nasogastric tube tip and side port in the stomach Chest X-Ray 10/23/18 06:00 IMPRESSION: Interval extubation. Significant worsening of the right pleural effusion with now near complete opacification of the right hemithorax. A component of atelectasis is also considered. Patchy airspace opacity left lung base.. copyright 2010 [employer]- All Rights Reserved Assessment & Plan - Diagnosis (1) Metabolic encephalopathy Is this a current diagnosis for this admission?: Yes Plan: improved somewhat (2) Respiratory failure with hypoxia and hypercapnia Qualifiers: Chronicity: acute Qualified Code(s): J96.01 - Acute respiratory failure with hypoxia; J96.02 - Acute respiratory failure with hypercapnia Is this a current diagnosis for this admission?: Yes Plan: stable 24 h s/p extubation (3) Septic shock Is this a current diagnosis for this admission?: No Plan: improved (4) Acute kidney injury Is this a current diagnosis for this admission?: Yes Plan: requiring HD (5) DIC (disseminated intravascular coagulation) Is this a current diagnosis for this admission?: Yes Plan: as per hematology (6) Thrombocytopenia Is this a current diagnosis for this admission?: Yes Plan: chronic bone marrow toxicity (7) Chronic obstructive pulmonary disease (COPD) Qualifiers: COPD type: unspecified COPD Qualified Code(s): J44.9 - Chronic obstructive pulmonary disease, unspecified Is this a current diagnosis for this admission?: Yes Plan: Continue current bronchodilator therapy - Time Total Critical Time (Minutes): 45
--- NOTE | 2018-11-01 09:16 | PDOC PROGRESS REPORT ---
Subjective Progress Note for:: 10/06/18 Subjective:: intubated and sedated Reason For Visit: SEPSIS, UTI, AMS, ACUTE KIDNEY INJURY, DELIRIUM Physical Exam Vital Signs: Temp Pulse Resp BP Pulse Ox 98.1 F 88 22 H 113/76 94 10/06/18 08:00 10/06/18 08:36 10/06/18 08:36 10/06/18 08:00 10/06/18 08:36 Intake & Output 10/05/18 10/06/18 10/07/18 06:59 06:59 06:59 Intake Total 1372 1610 150 Output Total 725 315 35 Balance 647 1295 115 Weight 79.1 kg 79.9 kg General appearance: PRESENT: no acute distress, disheveled. ABSENT: cooperative Head exam: PRESENT: atraumatic, normocephalic Eye exam: PRESENT: conjunctiva pale. ABSENT: nystagmus, periorbital swelling, scleral icterus Mouth exam: PRESENT: dry mucosa, neck supple, tongue midline, other - ET tube Neck exam: ABSENT: carotid bruit, full ROM, JVD, lymphadenopathy, meningismus, tenderness, thyromegaly, tracheal deviation, tracheostomy, other Respiratory exam: PRESENT: decreased breath sounds, prolonged expiratory phas, rales, rhonchi, unlabored. ABSENT: retraction Cardiovascular exam: PRESENT: RRR, +S1, +S2 Pulses: PRESENT: normal radial pulses GI/Abdominal exam: PRESENT: soft Gentrourinary exam: PRESENT: indwelling catheter Extremities exam: PRESENT: pedal edema. ABSENT: calf tenderness, clubbing, joint swelling Musculoskeletal exam: ABSENT: deformity, dislocation Neurological exam: ABSENT: awake Skin exam: PRESENT: dry, warm Results Laboratory Results: 10/06/18 04:22 10/06/18 04:22 10/05/18 10/05/18 10/05/18 09:59 11:30 11:30 WBC RBC Hgb Hct MCV MCH MCHC RDW Plt Count Seg Neutrophils % Lymphocytes % Monocytes % Eosinophils % Basophils % Absolute Neutrophils Absolute Lymphocytes Absolute Monocytes Absolute Eosinophils Absolute Basophils Carbonic Acid 1.69 H 1.30 HCO3/H2CO3 Ratio 12:1 15:1 ABG pH 7.18 L* 7.30 L ABG pCO2 56.3 H 43.1 ABG pO2 67.6 L 67.6 L ABG HCO3 20.5 20.6 ABG O2 Saturation 88.3 L 91.6 L ABG Base Excess -7.9 -5.5 FiO2 30% 50% Sodium Potassium Chloride Carbon Dioxide Anion Gap BUN Creatinine Est GFR ( Amer) Est GFR (Non-Af Amer) Glucose Calcium Magnesium Total Bilirubin AST ALT Alkaline Phosphatase Total Protein Albumin Urine Color Urine Appearance Urine pH Ur Specific [place] Urine Protein Urine Glucose (UA) Urine Ketones Urine Blood Urine Nitrite Ur Leukocyte Esterase Urine WBC (Auto) Urine RBC (Auto) Fluid Type BRONCHIAL WASH Fluid Source LUNG Fluid Color RED Fluid Appearance CLOUDY Fluid Viscosity SLIGHTLY VISCOUS Fluid WBC 5375 Fluid RBC 05426 10/06/18 10/06/18 10/06/18 04:22 04:22 04:22 WBC 14.4 H RBC 2.35 L Hgb 8.4 L Hct 25.3 L MCV 108 H MCH 35.8 H MCHC 33.2 RDW 26.1 H Plt Count 122 L Seg Neutrophils % Not Reportable Lymphocytes % Not Reportable Monocytes % Not Reportable Eosinophils % Not Reportable Basophils % Not Reportable Absolute Neutrophils Not Reportable Absolute Lymphocytes Not Reportable Absolute Monocytes Not Reportable Absolute Eosinophils Not Reportable Absolute Basophils Not Reportable Carbonic Acid 0.85 L HCO3/H2CO3 Ratio 18:1 ABG pH 7.37 ABG pCO2 28.4 L ABG pO2 69.6 L ABG HCO3 15.9 L ABG O2 Saturation 93.8 L ABG Base Excess -8.4 FiO2 28% Sodium 148.7 H Potassium 2.8 L* Chloride 122 H Carbon Dioxide 20 L Anion Gap 7 BUN 7 Creatinine 0.97 Est GFR ( Amer) > 60 Est GFR (Non-Af Amer) > 60 Glucose 112 H Calcium 7.7 L Magnesium 1.2 L* Total Bilirubin 1.8 H AST 39 H ALT 28 Alkaline Phosphatase 96 Total Protein 5.2 L Albumin 1.9 L Urine Color Urine Appearance Urine pH Ur Specific [place] Urine Protein Urine Glucose (UA) Urine Ketones Urine Blood Urine Nitrite Ur Leukocyte Esterase Urine WBC (Auto) Urine RBC (Auto) Fluid Type Fluid Source Fluid Color Fluid Appearance Fluid Viscosity Fluid WBC Fluid RBC 10/06/18 08:08 WBC RBC Hgb Hct MCV MCH MCHC RDW Plt Count Seg Neutrophils % Lymphocytes % Monocytes % Eosinophils % Basophils % Absolute Neutrophils Absolute Lymphocytes Absolute Monocytes Absolute Eosinophils Absolute Basophils Carbonic Acid HCO3/H2CO3 Ratio ABG pH ABG pCO2 ABG pO2 ABG HCO3 ABG O2 Saturation ABG Base Excess FiO2 Sodium Potassium Chloride Carbon Dioxide Anion Gap BUN Creatinine Est GFR ( Amer) Est GFR (Non-Af Amer) Glucose Calcium Magnesium Total Bilirubin AST ALT Alkaline Phosphatase Total Protein Albumin Urine Color JESS Urine Appearance SLIGHTLY-CLOUDY Urine pH 5.0 Ur Specific [place] 1.020 Urine Protein 30 H Urine Glucose (UA) NEGATIVE Urine Ketones NEGATIVE Urine Blood SMALL H Urine Nitrite NEGATIVE Ur Leukocyte Esterase MODERATE H Urine WBC (Auto) 62 Urine RBC (Auto) 5 Fluid Type Fluid Source Fluid Color Fluid Appearance Fluid Viscosity Fluid WBC Fluid RBC 09/29/18 09/29/18 09/29/18 10:44 10:44 12:59 Creatine Kinase Cancelled CK-MB (CK-2) Troponin I Cancelled 0.028 NT-Pro-B Natriuret Pep 09/29/18 09/29/18 09/29/18 12:59 15:30 15:30 Creatine Kinase 77 161 H CK-MB (CK-2) 2.69 Troponin I 0.028 NT-Pro-B Natriuret Pep 09/29/18 09/29/18 09/30/18 18:59 18:59 00:59 Creatine Kinase 201 H 197 H CK-MB (CK-2) 3.45 Troponin I 0.023 NT-Pro-B Natriuret Pep 09/30/18 10/01/18 10/03/18 00:59 04:13 04:50 Creatine Kinase CK-MB (CK-2) 2.94 Troponin I 0.021 NT-Pro-B Natriuret Pep 2270 H 3170 H Impressions: Head CT 10/03/18 00:00 IMPRESSION: CHRONIC CHANGES OF ATROPHY AND MICROVASCULAR ISCHEMIA. NO ACUTE PROCESS. EVIDENCE OF ACUTE STROKE: NO. KUB X-Ray 10/05/18 00:00 IMPRESSION: Nasogastric tube tip and side port in the stomach Assessment & Plan - Diagnosis (1) Acute kidney injury Is this a current diagnosis for this admission?: Yes Plan: requiring HD (2) Alcohol abuse Is this a current diagnosis for this admission?: Yes Plan: DT precautions (3) DIC (disseminated intravascular coagulation) Is this a current diagnosis for this admission?: Yes Plan: as per hematology (4) Metabolic encephalopathy Is this a current diagnosis for this admission?: Yes Plan: improved somewhat (5) Respiratory failure with hypoxia and hypercapnia Qualifiers: Chronicity: acute Qualified Code(s): J96.01 - Acute respiratory failure with hypoxia; J96.02 - Acute respiratory failure with hypercapnia Is this a current diagnosis for this admission?: Yes Plan: will extubate (6) Septic shock Is this a current diagnosis for this admission?: Yes Plan: improved (7) Thrombocytopenia Is this a current diagnosis for this admission?: Yes Plan: chronic bone marrow toxicity - Time Total Critical Time (Minutes): 45
--- NOTE | 2018-11-01 09:19 | PDOC PROGRESS REPORT ---
Subjective Progress Note for:: 10/31/18 Subjective:: bipap dependent Reason For Visit: SEPSIS, UTI, AMS, ACUTE KIDNEY INJURY, DELIRIUM Physical Exam Vital Signs: Temp Pulse Resp BP Pulse Ox 98.4 F 99 18 149/93 H 100 11/01/18 08:00 11/01/18 08:33 11/01/18 08:33 11/01/18 08:00 11/01/18 08:33 Intake & Output 10/31/18 11/01/18 11/02/18 06:59 06:59 06:59 Intake Total 1848 1929 Output Total 2594 3080 Balance -747 -801 Weight 85.7 kg 84 kg General appearance: PRESENT: no acute distress, cooperative, disheveled Head exam: PRESENT: atraumatic, normocephalic Eye exam: PRESENT: conjunctiva pale, EOMI. ABSENT: nystagmus, periorbital swelling Mouth exam: PRESENT: dry mucosa, neck supple, tongue midline Neck exam: ABSENT: carotid bruit, full ROM, JVD, lymphadenopathy, meningismus, tenderness, thyromegaly, tracheal deviation, tracheostomy, other Respiratory exam: PRESENT: crackles, decreased breath sounds, prolonged expiratory phas, rhonchi, unlabored. ABSENT: retraction, stridor Cardiovascular exam: PRESENT: RRR, +S1, +S2 Pulses: PRESENT: normal radial pulses GI/Abdominal exam: PRESENT: soft. ABSENT: tenderness Gentrourinary exam: PRESENT: indwelling catheter Extremities exam: PRESENT: pedal edema. ABSENT: calf tenderness, clubbing, joint swelling Musculoskeletal exam: ABSENT: deformity, dislocation Neurological exam: PRESENT: altered, awake Psychiatric exam: PRESENT: anxious Skin exam: PRESENT: dry, warm Results Laboratory Results: 10/30/18 05:17 10/31/18 04:19 11/01/18 05:51 Magnesium 1.8 09/29/18 09/29/18 09/29/18 10:44 10:44 12:59 Creatine Kinase Cancelled CK-MB (CK-2) Troponin I Cancelled 0.028 NT-Pro-B Natriuret Pep 09/29/18 09/29/18 09/29/18 12:59 15:30 15:30 Creatine Kinase 77 161 H CK-MB (CK-2) 2.69 Troponin I 0.028 NT-Pro-B Natriuret Pep 09/29/18 09/29/18 09/30/18 18:59 18:59 00:59 Creatine Kinase 201 H 197 H CK-MB (CK-2) 3.45 Troponin I 0.023 NT-Pro-B Natriuret Pep 09/30/18 10/01/18 10/03/18 00:59 04:13 04:50 Creatine Kinase CK-MB (CK-2) 2.94 Troponin I 0.021 NT-Pro-B Natriuret Pep 2270 H 3170 H 10/09/18 04:50 Creatine Kinase CK-MB (CK-2) Troponin I NT-Pro-B Natriuret Pep 630 Impressions: Head CT 10/03/18 00:00 IMPRESSION: CHRONIC CHANGES OF ATROPHY AND MICROVASCULAR ISCHEMIA. NO ACUTE PROCESS. EVIDENCE OF ACUTE STROKE: NO. KUB X-Ray 10/05/18 00:00 IMPRESSION: Nasogastric tube tip and side port in the stomach Abdomen/Pelvis CT 10/23/18 00:00 IMPRESSION: Marked right pleural effusion and compressive atelectasis or obstructive atelectasis of the right lung. Large left pleural effusion. Generalized ascites. Chest CT 10/23/18 00:00 IMPRESSION: Marked right pleural effusion and compressive atelectasis or obstructive atelectasis of the right lung. Large left pleural effusion. Generalized ascites. Chest Ultrasound 10/25/18 00:08 IMPRESSION: See above. Paracentesis Ultrasound 10/25/18 12:53 IMPRESSION: Successful ultrasound-guided paracentesis Chest X-Ray 10/28/18 06:00 IMPRESSION: Interval extubation. Assessment & Plan - Diagnosis (1) Metabolic encephalopathy Is this a current diagnosis for this admission?: Yes Plan: improved somewhat (2) Respiratory failure with hypoxia and hypercapnia Qualifiers: Chronicity: acute Qualified Code(s): J96.01 - Acute respiratory failure with hypoxia; J96.02 - Acute respiratory failure with hypercapnia Is this a current diagnosis for this admission?: Yes Plan: on bipap (3) Septic shock Is this a current diagnosis for this admission?: Yes Plan: improved (4) DIC (disseminated intravascular coagulation) Is this a current diagnosis for this admission?: Yes Plan: as per hematology - Time Total Critical Time (Minutes): 45
--- NOTE | 2018-11-01 09:19 | PDOC PROGRESS REPORT ---
Subjective Progress Note for:: 10/28/18 Subjective:: bipap dependent Reason For Visit: SEPSIS, UTI, AMS, ACUTE KIDNEY INJURY, DELIRIUM Physical Exam Vital Signs: Temp Pulse Resp BP Pulse Ox 97.2 F 87 13 129/97 H 99 10/28/18 08:00 10/28/18 08:20 10/28/18 08:20 10/28/18 08:00 10/28/18 08:20 Intake & Output 10/27/18 10/28/18 10/29/18 06:59 06:59 06:59 Intake Total 1670 1685 Output Total 3020 520 100 Balance -1350 1165 -100 Weight 88.8 kg 89.5 kg General appearance: PRESENT: no acute distress, disheveled Head exam: PRESENT: atraumatic, normocephalic Eye exam: PRESENT: conjunctiva pale, EOMI. ABSENT: nystagmus, periorbital swelling Mouth exam: PRESENT: dry mucosa, neck supple, tongue midline Neck exam: ABSENT: carotid bruit, full ROM, JVD, lymphadenopathy, meningismus, tenderness, thyromegaly, tracheal deviation, tracheostomy, other Respiratory exam: PRESENT: decreased breath sounds, prolonged expiratory phas, rales, rhonchi, unlabored. ABSENT: retraction, stridor Cardiovascular exam: PRESENT: RRR, +S1, +S2 Pulses: PRESENT: normal radial pulses GI/Abdominal exam: PRESENT: soft. ABSENT: tenderness Extremities exam: PRESENT: pedal edema. ABSENT: calf tenderness, clubbing, joint swelling Musculoskeletal exam: ABSENT: ambulatory, deformity, dislocation Neurological exam: PRESENT: altered, awake Psychiatric exam: PRESENT: anxious Skin exam: PRESENT: dry, warm Results Laboratory Results: 10/28/18 03:41 10/28/18 03:41 10/25/18 10/25/18 10/28/18 15:50 15:50 03:41 WBC RBC Hgb Hct MCV MCH MCHC RDW Plt Count Seg Neutrophils % Lymphocytes % Monocytes % Eosinophils % Basophils % Absolute Neutrophils Absolute Lymphocytes Absolute Monocytes Absolute Eosinophils Absolute Basophils Carbonic Acid 1.63 H HCO3/H2CO3 Ratio 16:1 ABG pH 7.32 L ABG pCO2 54.1 H ABG pO2 67.8 L ABG HCO3 26.9 H ABG O2 Saturation 91.7 L ABG Base Excess 0.2 FiO2 3L Sodium Potassium Chloride Carbon Dioxide Anion Gap BUN Creatinine Est GFR ( Amer) Est GFR (Non-Af Amer) Glucose Calcium Magnesium Fluid Glucose 102 Fluid Total Protein 2.1 Fluid LDH 63 Fluid Amylase 16 10/28/18 10/28/18 03:41 03:41 WBC 11.0 H RBC 3.04 L Hgb 9.5 L Hct 29.5 L MCV 97 MCH 31.3 MCHC 32.2 RDW 23.0 H Plt Count 69 L Seg Neutrophils % Not Reportable Lymphocytes % Not Reportable Monocytes % Not Reportable Eosinophils % Not Reportable Basophils % Not Reportable Absolute Neutrophils Not Reportable Absolute Lymphocytes Not Reportable Absolute Monocytes Not Reportable Absolute Eosinophils Not Reportable Absolute Basophils Not Reportable Carbonic Acid HCO3/H2CO3 Ratio ABG pH ABG pCO2 ABG pO2 ABG HCO3 ABG O2 Saturation ABG Base Excess FiO2 Sodium 146.3 H Potassium 3.7 Chloride 110 H Carbon Dioxide 27 Anion Gap 9 BUN 8 Creatinine 3.09 H Est GFR ( Amer) 19 L Est GFR (Non-Af Amer) 16 L Glucose 100 Calcium 11.2 H Magnesium 2.2 Fluid Glucose Fluid Total Protein Fluid LDH Fluid Amylase 09/29/18 09/29/18 09/29/18 10:44 10:44 12:59 Creatine Kinase Cancelled CK-MB (CK-2) Troponin I Cancelled 0.028 NT-Pro-B Natriuret Pep 09/29/18 09/29/18 09/29/18 12:59 15:30 15:30 Creatine Kinase 77 161 H CK-MB (CK-2) 2.69 Troponin I 0.028 NT-Pro-B Natriuret Pep 09/29/18 09/29/18 09/30/18 18:59 18:59 00:59 Creatine Kinase 201 H 197 H CK-MB (CK-2) 3.45 Troponin I 0.023 NT-Pro-B Natriuret Pep 09/30/18 10/01/18 10/03/18 00:59 04:13 04:50 Creatine Kinase CK-MB (CK-2) 2.94 Troponin I 0.021 NT-Pro-B Natriuret Pep 2270 H 3170 H 10/09/18 04:50 Creatine Kinase CK-MB (CK-2) Troponin I NT-Pro-B Natriuret Pep 630 Impressions: Head CT 10/03/18 00:00 IMPRESSION: CHRONIC CHANGES OF ATROPHY AND MICROVASCULAR ISCHEMIA. NO ACUTE PROCESS. EVIDENCE OF ACUTE STROKE: NO. KUB X-Ray 10/05/18 00:00 IMPRESSION: Nasogastric tube tip and side port in the stomach Abdomen/Pelvis CT 10/23/18 00:00 IMPRESSION: Marked right pleural effusion and compressive atelectasis or obstructive atelectasis of the right lung. Large left pleural effusion. Generalized ascites. Chest CT 10/23/18 00:00 IMPRESSION: Marked right pleural effusion and compressive atelectasis or obstructive atelectasis of the right lung. Large left pleural effusion. Generalized ascites. Chest Ultrasound 10/25/18 00:08 IMPRESSION: See above. Paracentesis Ultrasound 10/25/18 12:53 IMPRESSION: Successful ultrasound-guided paracentesis Chest X-Ray 10/28/18 06:00 IMPRESSION: Interval extubation. Assessment & Plan - Diagnosis (1) Metabolic encephalopathy Is this a current diagnosis for this admission?: Yes Plan: improved somewhat (2) Respiratory failure with hypoxia and hypercapnia Qualifiers: Chronicity: acute Qualified Code(s): J96.01 - Acute respiratory failure with hypoxia; J96.02 - Acute respiratory failure with hypercapnia Is this a current diagnosis for this admission?: Yes Plan: will extubate (3) Septic shock Is this a current diagnosis for this admission?: Yes Plan: improved (4) DIC (disseminated intravascular coagulation) Is this a current diagnosis for this admission?: Yes Plan: as per hematology - Time Total Critical Time (Minutes): 45
[2018-11-01] MEDS ORDERED: FUROSEMIDE INJ/PF 40 MG/4 ML SDV IV SCH (10:00)
[2018-11-01] MEDS: MIDODRINE HCL 5 MG TABLET NG SCH ×2 (10:19→22:27)
[2018-11-01] MEDS: AMINO AC/PROTEIN HYDR/WHEY PRO 11 GM/45 ML PKT NG SCH ×3 (10:20→17:41)
[2018-11-01] MEDS: NYSTATIN TOPICAL POWDER 15 GM TP SCH ×2 (10:20→17:42)
--- NOTE | 2018-11-01 11:02 | PDOC PROGRESS REPORT ---
Subjective Progress Note for:: 10/07/18 Subjective:: bipap dependent Reason For Visit: SEPSIS, UTI, AMS, ACUTE KIDNEY INJURY, DELIRIUM Physical Exam Vital Signs: Temp Pulse Resp BP Pulse Ox 98.4 F 77 22 H 124/86 H 100 10/07/18 08:42 10/07/18 07:55 10/07/18 08:42 10/07/18 08:42 10/07/18 08:42 Intake & Output 10/06/18 10/07/18 10/08/18 06:59 06:59 06:59 Intake Total 1610 4713 60 Output Total 315 2635 Balance 1295 2078 60 Weight 79.9 kg 82.2 kg General appearance: PRESENT: no acute distress, disheveled, well-developed, well-nourished. ABSENT: cooperative Head exam: PRESENT: atraumatic, normocephalic Eye exam: PRESENT: conjunctiva pale. ABSENT: EOMI, nystagmus, periorbital swelling Mouth exam: PRESENT: dry mucosa, neck supple, tongue midline, other - ET tube in place Neck exam: ABSENT: carotid bruit, full ROM, JVD, lymphadenopathy, meningismus, tenderness, thyromegaly, tracheal deviation, tracheostomy, other Respiratory exam: PRESENT: decreased breath sounds, prolonged expiratory phas, rales, rhonchi, unlabored. ABSENT: retraction, stridor Cardiovascular exam: PRESENT: RRR, +S1, +S2 Pulses: PRESENT: normal radial pulses GI/Abdominal exam: PRESENT: soft. ABSENT: tenderness - [id number] Gentrourinary exam: PRESENT: indwelling catheter Extremities exam: PRESENT: pedal edema. ABSENT: calf tenderness, clubbing, joint swelling Musculoskeletal exam: ABSENT: deformity, dislocation Neurological exam: ABSENT: awake Skin exam: PRESENT: dry, warm Results Laboratory Results: 10/07/18 06:40 10/07/18 06:00 10/06/18 10/06/18 10/06/18 13:26 13:26 15:10 WBC RBC Hgb Hct MCV MCH MCHC RDW Plt Count Seg Neutrophils % Lymphocytes % Monocytes % Eosinophils % Basophils % Absolute Neutrophils Absolute Lymphocytes Absolute Monocytes Absolute Eosinophils Absolute Basophils Carbonic Acid HCO3/H2CO3 Ratio ABG pH ABG pCO2 ABG pO2 ABG HCO3 ABG O2 Saturation ABG Base Excess FiO2 Sodium 146.4 H Potassium 3.0 L* Chloride 122 H Carbon Dioxide 18 L Anion Gap 6 BUN 8 Creatinine 0.99 Est GFR ( Amer) > 60 Est GFR (Non-Af Amer) 58 L Glucose 123 H Lactic Acid Cancelled 3.0 H Calcium 7.9 L Magnesium 1.9 Total Bilirubin AST ALT Alkaline Phosphatase Total Protein Albumin 10/06/18 10/07/18 10/07/18 18:27 06:00 06:40 WBC 14.9 H RBC 2.58 L Hgb 9.0 L Hct 27.0 L MCV 105 H MCH 35.1 H MCHC 33.4 RDW 25.8 H Plt Count 120 L Seg Neutrophils % 83.8 H Lymphocytes % 8.1 L Monocytes % 4.2 Eosinophils % 2.9 Basophils % 1.0 Absolute Neutrophils 12.4 H Absolute Lymphocytes 1.2 Absolute Monocytes 0.6 Absolute Eosinophils 0.4 Absolute Basophils 0.2 Carbonic Acid HCO3/H2CO3 Ratio ABG pH ABG pCO2 ABG pO2 ABG HCO3 ABG O2 Saturation ABG Base Excess FiO2 Sodium 142.8 Potassium 3.0 L* Chloride 119 H Carbon Dioxide 17 L Anion Gap 7 BUN 9 Creatinine 1.09 Est GFR ( Amer) > 60 Est GFR (Non-Af Amer) 52 L Glucose 128 H Lactic Acid 2.1 Calcium 8.3 L Magnesium 1.7 Total Bilirubin 1.9 H AST 41 H ALT 23 Alkaline Phosphatase 98 Total Protein 5.3 L Albumin 1.8 L 10/07/18 08:53 WBC RBC Hgb Hct MCV MCH MCHC RDW Plt Count Seg Neutrophils % Lymphocytes % Monocytes % Eosinophils % Basophils % Absolute Neutrophils Absolute Lymphocytes Absolute Monocytes Absolute Eosinophils Absolute Basophils Carbonic Acid 0.75 L HCO3/H2CO3 Ratio 21:1 ABG pH 7.42 ABG pCO2 24.8 L ABG pO2 93.7 ABG HCO3 15.9 L ABG O2 Saturation 97.5 ABG Base Excess -7.1 FiO2 40% Sodium Potassium Chloride Carbon Dioxide Anion Gap BUN Creatinine Est GFR ( Amer) Est GFR (Non-Af Amer) Glucose Lactic Acid Calcium Magnesium Total Bilirubin AST ALT Alkaline Phosphatase Total Protein Albumin 10/05/18 09:45 Tracheal Aspirate Gram Stain - Final 10/05/18 09:45 Tracheal Aspirate Sputum Culture - Final C.albicans/C.dubliniensis Greatly Reduced Normal Uzma 10/05/18 11:30 Bronchial Washings Gram Stain - Final 10/05/18 11:30 Bronchial Washings Bronchial Washings Culture - Final C.albicans/C.dubliniensis Greatly Reduced Normal Uzma 09/29/18 09/29/18 09/29/18 10:44 10:44 12:59 Creatine Kinase Cancelled CK-MB (CK-2) Troponin I Cancelled 0.028 NT-Pro-B Natriuret Pep 09/29/18 09/29/18 09/29/18 12:59 15:30 15:30 Creatine Kinase 77 161 H CK-MB (CK-2) 2.69 Troponin I 0.028 NT-Pro-B Natriuret Pep 09/29/18 09/29/18 09/30/18 18:59 18:59 00:59 Creatine Kinase 201 H 197 H CK-MB (CK-2) 3.45 Troponin I 0.023 NT-Pro-B Natriuret Pep 09/30/18 10/01/18 10/03/18 00:59 04:13 04:50 Creatine Kinase CK-MB (CK-2) 2.94 Troponin I 0.021 NT-Pro-B Natriuret Pep 2270 H 3170 H Impressions: Head CT 10/03/18 00:00 IMPRESSION: CHRONIC CHANGES OF ATROPHY AND MICROVASCULAR ISCHEMIA. NO ACUTE PROCESS. EVIDENCE OF ACUTE STROKE: NO. KUB X-Ray 10/05/18 00:00 IMPRESSION: Nasogastric tube tip and side port in the stomach Chest X-Ray 10/07/18 06:00 IMPRESSION: Overall, no significant change when compared to the most recent study. Assessment & Plan - Diagnosis (1) Acute kidney injury Is this a current diagnosis for this admission?: Yes Plan: requiring HD (2) DIC (disseminated intravascular coagulation) Is this a current diagnosis for this admission?: Yes Plan: as per hematology (3) Respiratory failure with hypoxia and hypercapnia Qualifiers: Chronicity: acute Qualified Code(s): J96.01 - Acute respiratory failure with hypoxia; J96.02 - Acute respiratory failure with hypercapnia Is this a current diagnosis for this admission?: Yes Plan: unchanged (4) Chronic obstructive pulmonary disease (COPD) Qualifiers: COPD type: unspecified COPD Qualified Code(s): J44.9 - Chronic obstructive pulmonary disease, unspecified Is this a current diagnosis for this admission?: Yes Plan: Continue current bronchodilator therapy (5) Pneumonia involving right lung Qualifiers: Pneumonia type: due to Pneumococcus Lung location: upper lobe of lung Qu alified Code(s): J13 - Pneumonia due to Streptococcus pneumoniae Is this a current diagnosis for this admission?: Yes Plan: Continue current antibiotic therapy (6) Thrombocytopenia Is this a current diagnosis for this admission?: Yes Plan: As per hematology - Time Total Critical Time (Minutes): 45
--- NOTE | 2018-11-01 11:05 | PDOC PROGRESS REPORT ---
Subjective Progress Note for:: 10/08/18 Subjective:: bipap dependent Reason For Visit: SEPSIS, UTI, AMS, ACUTE KIDNEY INJURY, DELIRIUM Physical Exam Vital Signs: Temp Pulse Resp BP Pulse Ox 97.5 F 90 22 H 92/66 L 99 10/08/18 10:05 10/08/18 08:00 10/08/18 10:05 10/08/18 10:05 10/08/18 10:05 Intake & Output 10/07/18 10/08/18 10/09/18 06:59 06:59 07:59 Intake Total 4713 4977 100 Output Total 2635 1270 25 Balance 3876 4497 75 Weight 82.2 kg 84.9 kg General appearance: PRESENT: no acute distress, disheveled, well-developed, well-nourished. ABSENT: cooperative Head exam: PRESENT: atraumatic, normocephalic Eye exam: PRESENT: conjunctiva pale. ABSENT: nystagmus, periorbital swelling, scleral icterus Mouth exam: PRESENT: dry mucosa, neck supple, tongue midline, other - ET tube Neck exam: ABSENT: carotid bruit, full ROM, JVD, lymphadenopathy, meningismus, tenderness, thyromegaly, tracheal deviation, tracheostomy, other Respiratory exam: PRESENT: crackles, decreased breath sounds, prolonged expiratory phas, rhonchi, unlabored. ABSENT: retraction Cardiovascular exam: PRESENT: RRR, +S1, +S2 Pulses: PRESENT: normal radial pulses GI/Abdominal exam: PRESENT: soft. ABSENT: tenderness Gentrourinary exam: PRESENT: indwelling catheter Extremities exam: PRESENT: pedal edema. ABSENT: calf tenderness, clubbing, joint swelling Musculoskeletal exam: ABSENT: deformity, dislocation Neurological exam: ABSENT: awake Skin exam: PRESENT: dry, warm Results Laboratory Results: 10/08/18 04:16 10/08/18 04:16 10/07/18 10/08/18 10/08/18 23:25 04:16 04:16 WBC RBC Hgb Hct MCV MCH MCHC RDW Plt Count Seg Neutrophils % Lymphocytes % Monocytes % Eosinophils % Basophils % Absolute Neutrophils Absolute Lymphocytes Absolute Monocytes Absolute Eosinophils Absolute Basophils Carbonic Acid 0.82 L HCO3/H2CO3 Ratio 18:1 ABG pH 7.36 ABG pCO2 27.4 L ABG pO2 43.4 L ABG HCO3 15.0 L ABG O2 Saturation 78.3 L ABG Base Excess -9.3 FiO2 35% Sodium 143.6 Potassium 3.6 3.5 L Chloride 120 H Carbon Dioxide 15 L Anion Gap 9 BUN 10 Creatinine 1.05 Est GFR ( Amer) > 60 Est GFR (Non-Af Amer) 54 L Glucose 114 H Calcium 8.7 Magnesium 1.6 10/08/18 04:16 WBC 15.1 H RBC 2.36 L Hgb 8.5 L Hct 25.4 L MCV 107 H MCH 35.8 H MCHC 33.4 RDW 25.7 H Plt Count 111 L Seg Neutrophils % 85.3 H Lymphocytes % 7.5 L Monocytes % 4.3 Eosinophils % 2.4 Basophils % 0.5 Absolute Neutrophils 12.9 H Absolute Lymphocytes 1.1 Absolute Monocytes 0.7 Absolute Eosinophils 0.4 Absolute Basophils 0.1 Carbonic Acid HCO3/H2CO3 Ratio ABG pH ABG pCO2 ABG pO2 ABG HCO3 ABG O2 Saturation ABG Base Excess FiO2 Sodium Potassium Chloride Carbon Dioxide Anion Gap BUN Creatinine Est GFR ( Amer) Est GFR (Non-Af Amer) Glucose Calcium Magnesium 10/05/18 11:30 Bronchial Washings Fungal Smear - Final 10/05/18 11:30 Bronchial Washings Fungal Smear - Final 10/05/18 11:30 Bronchial Washings AFB Smear Concentration - Final 10/05/18 11:30 Bronchial Washings Acid Fast Bacilli Smear - Final 09/29/18 09/29/18 09/29/18 10:44 10:44 12:59 Creatine Kinase Cancelled CK-MB (CK-2) Troponin I Cancelled 0.028 NT-Pro-B Natriuret Pep 09/29/18 09/29/18 09/29/18 12:59 15:30 15:30 Creatine Kinase 77 161 H CK-MB (CK-2) 2.69 Troponin I 0.028 NT-Pro-B Natriuret Pep 09/29/18 09/29/18 09/30/18 18:59 18:59 00:59 Creatine Kinase 201 H 197 H CK-MB (CK-2) 3.45 Troponin I 0.023 NT-Pro-B Natriuret Pep 09/30/18 10/01/18 10/03/18 00:59 04:13 04:50 Creatine Kinase CK-MB (CK-2) 2.94 Troponin I 0.021 NT-Pro-B Natriuret Pep 2270 H 3170 H Impressions: Head CT 10/03/18 00:00 IMPRESSION: CHRONIC CHANGES OF ATROPHY AND MICROVASCULAR ISCHEMIA. NO ACUTE PROCESS. EVIDENCE OF ACUTE STROKE: NO. KUB X-Ray 10/05/18 00:00 IMPRESSION: Nasogastric tube tip and side port in the stomach Assessment & Plan - Diagnosis (1) Acute kidney injury Is this a current diagnosis for this admission?: Yes Plan: requiring HD (2) DIC (disseminated intravascular coagulation) Is this a current diagnosis for this admission?: Yes Plan: as per hematology (3) Respiratory failure with hypoxia and hypercapnia Qualifiers: Chronicity: acute Qualified Code(s): J96.01 - Acute respiratory failure with hypoxia; J96.02 - Acute respiratory failure with hypercapnia Is this a current diagnosis for this admission?: Yes Plan: on bipap (4) Thrombocytopenia Is this a current diagnosis for this admission?: Yes Plan: chronic bone marrow toxicity (5) Chronic obstructive pulmonary disease (COPD) Qualifiers: COPD type: unspecified COPD Qualified Code(s): J44.9 - Chronic obstructive pulmonary disease, unspecified Is this a current diagnosis for this admission?: Yes Plan: Continue current bronchodilator therapy - Time Total Critical Time (Minutes): 45
--- NOTE | 2018-11-01 11:08 | PDOC PROGRESS REPORT ---
Subjective Progress Note for:: 10/09/18 Subjective:: bipap dependent Reason For Visit: SEPSIS, UTI, AMS, ACUTE KIDNEY INJURY, DELIRIUM Physical Exam Vital Signs: Temp Pulse Resp BP Pulse Ox 97.9 F 91 20 108/74 100 10/10/18 08:00 10/10/18 08:00 10/10/18 08:00 10/10/18 08:00 10/10/18 08:59 Intake & Output 10/09/18 10/10/18 10/11/18 06:59 06:59 06:59 Intake Total 2448 Output Total 1820 125 Balance 628 -125 Weight 89.1 kg General appearance: PRESENT: no acute distress, disheveled Head exam: PRESENT: atraumatic, normocephalic Eye exam: PRESENT: conjunctiva pale. ABSENT: nystagmus, periorbital swelling, scleral icterus Mouth exam: PRESENT: dry mucosa, neck supple, tongue midline, other - ET tube Neck exam: ABSENT: carotid bruit, full ROM, JVD, lymphadenopathy, meningismus, tenderness, thyromegaly, tracheal deviation, tracheostomy, other Respiratory exam: PRESENT: crackles, decreased breath sounds, prolonged expiratory phas, rhonchi, unlabored. ABSENT: retraction Cardiovascular exam: PRESENT: RRR, +S1, +S2 Pulses: PRESENT: normal radial pulses - [id number] GI/Abdominal exam: PRESENT: soft. ABSENT: tenderness - [id number] Gentrourinary exam: PRESENT: indwelling catheter Extremities exam: PRESENT: pedal edema. ABSENT: calf tenderness, clubbing [place] [id number], joint swelling Musculoskeletal exam: ABSENT: deformity, dislocation Neurological exam: ABSENT: awake Skin exam: PRESENT: dry, warm Results Laboratory Results: 10/10/18 04:48 10/10/18 04:34 10/09/18 10/10/18 10/10/18 19:02 04:34 04:48 WBC 13.4 H 13.4 H RBC 2.34 L 2.25 L Hgb 8.1 L 8.0 L Hct 24.9 L 24.1 L MCV 107 H 107 H MCH 34.6 H 35.6 H MCHC 32.4 33.2 RDW 24.9 H 25.4 H Plt Count 116 L 114 L Seg Neutrophils % 80.7 H 80.3 H Lymphocytes % 10.1 L 10.2 L Monocytes % 4.9 5.3 Eosinophils % 3.9 3.5 Basophils % 0.4 0.7 Absolute Neutrophils 10.9 H 10.8 H Absolute Lymphocytes 1.4 1.4 Absolute Monocytes 0.7 0.7 Absolute Eosinophils 0.5 0.5 Absolute Basophils 0.0 0.1 Carbonic Acid HCO3/H2CO3 Ratio ABG pH ABG pCO2 ABG pO2 ABG HCO3 ABG O2 Saturation ABG Base Excess FiO2 Sodium 143.2 Potassium 3.1 L Chloride 123 H Carbon Dioxide 13 L Anion Gap 7 BUN 16 Creatinine 1.28 H Est GFR ( Amer) 52 L Est GFR (Non-Af Amer) 43 L Glucose 120 H Calcium 9.0 Magnesium 1.7 10/10/18 06:37 WBC RBC Hgb Hct MCV MCH MCHC RDW Plt Count Seg Neutrophils % Lymphocytes % Monocytes % Eosinophils % Basophils % Absolute Neutrophils Absolute Lymphocytes Absolute Monocytes Absolute Eosinophils Absolute Basophils Carbonic Acid 0.74 L HCO3/H2CO3 Ratio 17:1 ABG pH 7.35 ABG pCO2 24.6 L ABG pO2 71.5 L ABG HCO3 13.2 L ABG O2 Saturation 94.1 ABG Base Excess -11.1 FiO2 30% Sodium Potassium Chloride Carbon Dioxide Anion Gap BUN Creatinine Est GFR ( Amer) Est GFR (Non-Af Amer) Glucose Calcium Magnesium 09/29/18 09/29/18 09/29/18 10:44 10:44 12:59 Creatine Kinase Cancelled CK-MB (CK-2) Troponin I Cancelled 0.028 NT-Pro-B Natriuret Pep 09/29/18 09/29/18 09/29/18 12:59 15:30 15:30 Creatine Kinase 77 161 H CK-MB (CK-2) 2.69 Troponin I 0.028 NT-Pro-B Natriuret Pep 09/29/18 09/29/18 09/30/18 18:59 18:59 00:59 Creatine Kinase 201 H 197 H CK-MB (CK-2) 3.45 Troponin I 0.023 NT-Pro-B Natriuret Pep 09/30/18 10/01/18 10/03/18 00:59 04:13 04:50 Creatine Kinase CK-MB (CK-2) 2.94 Troponin I 0.021 NT-Pro-B Natriuret Pep 2270 H 3170 H 10/09/18 04:50 Creatine Kinase CK-MB (CK-2) Troponin I NT-Pro-B Natriuret Pep 630 Impressions: Head CT 10/03/18 00:00 IMPRESSION: CHRONIC CHANGES OF ATROPHY AND MICROVASCULAR ISCHEMIA. NO ACUTE PROCESS. EVIDENCE OF ACUTE STROKE: NO. KUB X-Ray 10/05/18 00:00 IMPRESSION: Nasogastric tube tip and side port in the stomach Assessment & Plan - Diagnosis (1) Metabolic encephalopathy Is this a current diagnosis for this admission?: Yes Plan: improved somewhat (2) Respiratory failure with hypoxia and hypercapnia Qualifiers: Chronicity: acute Qualified Code(s): J96.01 - Acute respiratory failure with hypoxia; J96.02 - Acute respiratory failure with hypercapnia Is this a current diagnosis for this admission?: Yes Plan: on bipap (3) Septic shock Is this a current diagnosis for this admission?: Yes (4) Acute kidney injury Is this a current diagnosis for this admission?: Yes Plan: requiring HD (5) DIC (disseminated intravascular coagulation) Is this a current diagnosis for this admission?: Yes Plan: as per hematology (6) Thrombocytopenia Is this a current diagnosis for this admission?: Yes Plan: chronic bone marrow toxicity (7) Chronic obstructive pulmonary disease (COPD) Qualifiers: COPD type: unspecified COPD Qualified Code(s): J44.9 - Chronic obstructive pulmonary disease, unspecified Is this a current diagnosis for this admission?: Yes Plan: Continue current bronchodilator therapy - Time Total Critical Time (Minutes): 45
--- NOTE | 2018-11-01 11:11 | PDOC PROGRESS REPORT ---
Subjective Progress Note for:: 10/10/18 Subjective:: bipap dependent Reason For Visit: SEPSIS, UTI, AMS, ACUTE KIDNEY INJURY, DELIRIUM Physical Exam Vital Signs: Temp Pulse Resp BP Pulse Ox 97.9 F 91 20 108/74 100 10/10/18 08:00 10/10/18 08:00 10/10/18 08:00 10/10/18 08:00 10/10/18 08:59 Intake & Output 10/09/18 10/10/18 10/11/18 06:59 06:59 06:59 Intake Total 2448 Output Total 1820 125 Balance 628 -125 Weight 89.1 kg General appearance: PRESENT: no acute distress, disheveled, well-developed, well-nourished. ABSENT: cooperative Head exam: PRESENT: atraumatic, normocephalic Eye exam: PRESENT: conjunctiva pale. ABSENT: nystagmus, periorbital swelling, scleral icterus Mouth exam: PRESENT: dry mucosa, neck supple, tongue midline, other - ET tube Neck exam: ABSENT: carotid bruit, full ROM, JVD, lymphadenopathy, meningismus, tenderness, thyromegaly, tracheal deviation, tracheostomy, other Respiratory exam: PRESENT: crackles, decreased breath sounds, prolonged expiratory phas, rhonchi, unlabored, wheezes Cardiovascular exam: PRESENT: RRR, +S1, +S2 Pulses: PRESENT: normal radial pulses GI/Abdominal exam: PRESENT: soft. ABSENT: tenderness - [id number] Gentrourinary exam: PRESENT: indwelling catheter Extremities exam: PRESENT: pedal edema. ABSENT: calf tenderness, clubbing, joint swelling Musculoskeletal exam: ABSENT: deformity, dislocation Neurological exam: ABSENT: awake Skin exam: PRESENT: dry, warm Results Laboratory Results: 10/10/18 04:48 10/10/18 04:34 10/09/18 10/10/18 10/10/18 19:02 04:34 04:48 WBC 13.4 H 13.4 H RBC 2.34 L 2.25 L Hgb 8.1 L 8.0 L Hct 24.9 L 24.1 L MCV 107 H 107 H MCH 34.6 H 35.6 H MCHC 32.4 33.2 RDW 24.9 H 25.4 H Plt Count 116 L 114 L Seg Neutrophils % 80.7 H 80.3 H Lymphocytes % 10.1 L 10.2 L Monocytes % 4.9 5.3 Eosinophils % 3.9 3.5 Basophils % 0.4 0.7 Absolute Neutrophils 10.9 H 10.8 H Absolute Lymphocytes 1.4 1.4 Absolute Monocytes 0.7 0.7 Absolute Eosinophils 0.5 0.5 Absolute Basophils 0.0 0.1 Carbonic Acid HCO3/H2CO3 Ratio ABG pH ABG pCO2 ABG pO2 ABG HCO3 ABG O2 Saturation ABG Base Excess FiO2 Sodium 143.2 Potassium 3.1 L Chloride 123 H Carbon Dioxide 13 L Anion Gap 7 BUN 16 Creatinine 1.28 H Est GFR ( Amer) 52 L Est GFR (Non-Af Amer) 43 L Glucose 120 H Calcium 9.0 Magnesium 1.7 10/10/18 06:37 WBC RBC Hgb Hct MCV MCH MCHC RDW Plt Count Seg Neutrophils % Lymphocytes % Monocytes % Eosinophils % Basophils % Absolute Neutrophils Absolute Lymphocytes Absolute Monocytes Absolute Eosinophils Absolute Basophils Carbonic Acid 0.74 L HCO3/H2CO3 Ratio 17:1 ABG pH 7.35 ABG pCO2 24.6 L ABG pO2 71.5 L ABG HCO3 13.2 L ABG O2 Saturation 94.1 ABG Base Excess -11.1 FiO2 30% Sodium Potassium Chloride Carbon Dioxide Anion Gap BUN Creatinine Est GFR ( Amer) Est GFR (Non-Af Amer) Glucose Calcium Magnesium 09/29/18 09/29/18 09/29/18 10:44 10:44 12:59 Creatine Kinase Cancelled CK-MB (CK-2) Troponin I Cancelled 0.028 NT-Pro-B Natriuret Pep 09/29/18 09/29/18 09/29/18 12:59 15:30 15:30 Creatine Kinase 77 161 H CK-MB (CK-2) 2.69 Troponin I 0.028 NT-Pro-B Natriuret Pep 09/29/18 09/29/18 09/30/18 18:59 18:59 00:59 Creatine Kinase 201 H 197 H CK-MB (CK-2) 3.45 Troponin I 0.023 NT-Pro-B Natriuret Pep 09/30/18 10/01/18 10/03/18 00:59 04:13 04:50 Creatine Kinase CK-MB (CK-2) 2.94 Troponin I 0.021 NT-Pro-B Natriuret Pep 2270 H 3170 H 10/09/18 04:50 Creatine Kinase CK-MB (CK-2) Troponin I NT-Pro-B Natriuret Pep 630 Impressions: Head CT 10/03/18 00:00 IMPRESSION: CHRONIC CHANGES OF ATROPHY AND MICROVASCULAR ISCHEMIA. NO ACUTE PROCESS. EVIDENCE OF ACUTE STROKE: NO. KUB X-Ray 10/05/18 00:00 IMPRESSION: Nasogastric tube tip and side port in the stomach Assessment & Plan - Diagnosis (1) Metabolic encephalopathy Is this a current diagnosis for this admission?: Yes Plan: improved somewhat (2) Respiratory failure with hypoxia and hypercapnia Qualifiers: Chronicity: acute Qualified Code(s): J96.01 - Acute respiratory failure with hypoxia; J96.02 - Acute respiratory failure with hypercapnia Is this a current diagnosis for this admission?: Yes Plan: on bipap (3) Septic shock Is this a current diagnosis for this admission?: Yes Plan: improved (4) Acute kidney injury Is this a current diagnosis for this admission?: Yes Plan: requiring HD (5) DIC (disseminated intravascular coagulation) Is this a current diagnosis for this admission?: Yes Plan: as per hematology (6) Thrombocytopenia Is this a current diagnosis for this admission?: Yes Plan: chronic bone marrow toxicity - Time Total Critical Time (Minutes): 50
--- NOTE | 2018-11-01 11:14 | PDOC PROGRESS REPORT ---
Subjective Progress Note for:: 10/11/18 Subjective:: bipap dependent Reason For Visit: SEPSIS, UTI, AMS, ACUTE KIDNEY INJURY, DELIRIUM Physical Exam Vital Signs: Temp Pulse Resp BP Pulse Ox 95.1 F L 93 19 138/93 H 94 10/11/18 08:00 10/11/18 10:00 10/11/18 10:00 10/11/18 10:00 10/11/18 10:28 Intake & Output 10/10/18 10/11/18 10/12/18 06:59 06:59 06:59 Intake Total 2448 4490 104 Output Total 1820 2275 170 Balance 628 2215 -66 Weight 89.1 kg 89.3 kg General appearance: PRESENT: no acute distress, disheveled, well-developed, well-nourished. ABSENT: cooperative Head exam: PRESENT: atraumatic, normocephalic Eye exam: PRESENT: conjunctiva pale. ABSENT: nystagmus, periorbital swelling, scleral icterus Mouth exam: PRESENT: dry mucosa, neck supple, tongue midline, other - ET tube Neck exam: ABSENT: carotid bruit, full [place] - [address], JVD, lymphadenopathy, me ningismus, tenderness, thyromegaly, tracheal deviation, tracheostomy, other Respiratory exam: PRESENT: crackles, decreased breath sounds, prolonged expiratory phas, rhonchi, unlabored. ABSENT: retraction, stridor Cardiovascular exam: PRESENT: RRR, +S1, +S2 Pulses: PRESENT: normal radial pulses GI/Abdominal exam: PRESENT: soft. ABSENT: tenderness Gentrourinary exam: PRESENT: indwelling catheter Extremities exam: PRESENT: pedal edema. ABSENT: calf tenderness, clubbing, joint swelling Musculoskeletal exam: ABSENT: ambulatory, deformity, dislocation Neurological exam: ABSENT: awake Skin exam: PRESENT: dry, warm Results Laboratory Results: 10/11/18 04:50 10/11/18 04:50 10/10/18 10/11/18 10/11/18 16:34 04:50 04:50 WBC 12.8 H RBC 2.24 L Hgb 7.9 L Hct 23.8 L MCV 106 H MCH 35.3 H MCHC 33.2 RDW 24.6 H Plt Count 111 L Seg Neutrophils % 77.9 Lymphocytes % 10.4 L Monocytes % 5.7 Eosinophils % 4.8 Basophils % 1.2 Absolute Neutrophils 10.0 H Absolute Lymphocytes 1.3 Absolute Monocytes 0.7 Absolute Eosinophils 0.6 Absolute Basophils 0.1 Carbonic Acid HCO3/H2CO3 Ratio ABG pH ABG pCO2 ABG pO2 ABG HCO3 ABG O2 Saturation ABG Base Excess FiO2 Sodium 142.3 142.9 Potassium 3.4 L 3.3 L Chloride 123 H 123 H Carbon Dioxide 14 L 13 L Anion Gap 5 7 BUN 17 18 Creatinine 1.36 H 1.31 H Est GFR ( Amer) 49 L 51 L Est GFR (Non-Af Amer) 40 L 42 L Glucose 112 H 117 H Calcium 8.9 9.2 Magnesium 1.7 10/11/18 05:02 WBC RBC Hgb Hct MCV MCH MCHC RDW Plt Count Seg Neutrophils % Lymphocytes % Monocytes % Eosinophils % Basophils % Absolute Neutrophils Absolute Lymphocytes Absolute Monocytes Absolute Eosinophils Absolute Basophils Carbonic Acid 0.75 L HCO3/H2CO3 Ratio 17:1 ABG pH 7.34 L ABG pCO2 25.0 L ABG pO2 72.9 L ABG HCO3 13.1 L ABG O2 Saturation 94.2 ABG Base Excess -11.5 FiO2 30% Sodium Potassium Chloride Carbon Dioxide Anion Gap BUN Creatinine Est GFR ( Amer) Est GFR (Non-Af Amer) Glucose Calcium Magnesium 09/29/18 09/29/18 09/29/18 10:44 10:44 12:59 Creatine Kinase Cancelled CK-MB (CK-2) Troponin I Cancelled 0.028 NT-Pro-B Natriuret Pep 09/29/18 09/29/18 09/29/18 12:59 15:30 15:30 Creatine Kinase 77 161 H CK-MB (CK-2) 2.69 Troponin I 0.028 NT-Pro-B Natriuret Pep 09/29/18 09/29/18 09/30/18 18:59 18:59 00:59 Creatine Kinase 201 H 197 H CK-MB (CK-2) 3.45 Troponin I 0.023 NT-Pro-B Natriuret Pep 09/30/18 10/01/18 10/03/18 00:59 04:13 04:50 Creatine Kinase CK-MB (CK-2) 2.94 Troponin I 0.021 NT-Pro-B Natriuret Pep 2270 H 3170 H 10/09/18 04:50 Creatine Kinase CK-MB (CK-2) Troponin I NT-Pro-B Natriuret Pep 630 Impressions: Head CT 10/03/18 00:00 IMPRESSION: CHRONIC CHANGES OF ATROPHY AND MICROVASCULAR ISCHEMIA. NO ACUTE PROCESS. EVIDENCE OF ACUTE STROKE: NO. KUB X-Ray 10/05/18 00:00 IMPRESSION: Nasogastric tube tip and side port in the stomach Assessment & Plan - Diagnosis (1) Metabolic encephalopathy Is this a current diagnosis for this admission?: Yes Plan: improved somewhat (2) Respiratory failure with hypoxia and hypercapnia Qualifiers: Chronicity: acute Qualified Code(s): J96.01 - Acute respiratory failure with hypoxia; J96.02 - Acute respiratory failure with hypercapnia Is this a current diagnosis for this admission?: Yes Plan: on bipap (3) Septic shock Is this a current diagnosis for this admission?: Yes Plan: improved (4) Acute kidney injury Is this a current diagnosis for this admission?: Yes Plan: requiring HD (5) DIC (disseminated intravascular coagulation) Is this a current diagnosis for this admission?: Yes Plan: as per hematology (6) Thrombocytopenia Is this a current diagnosis for this admission?: Yes Plan: chronic bone marrow toxicity (7) Chronic obstructive pulmonary disease (COPD) Qualifiers: COPD type: unspecified COPD Qualified Code(s): J44.9 - Chronic obstructive pulmonary disease, unspecified Is this a current diagnosis for this admission?: Yes Plan: Continue current bronchodilator therapy - Time Total Critical Time (Minutes): 45
--- NOTE | 2018-11-01 11:17 | PDOC PROGRESS REPORT ---
Subjective Progress Note for:: 10/12/18 Subjective:: bipap dependent Reason For Visit: SEPSIS, UTI, AMS, ACUTE KIDNEY INJURY, DELIRIUM Physical Exam Vital Signs: Temp Pulse Resp BP Pulse Ox 96.8 F L 102 H 22 H 101/82 100 10/12/18 08:00 10/12/18 08:00 10/12/18 08:00 10/12/18 08:00 10/12/18 08:00 Intake & Output 10/11/18 10/12/18 10/13/18 06:59 06:59 06:59 Intake Total 4590 3187 Output Total 2275 1775 250 Balance 2315 1412 -250 Weight 89.3 kg 90.9 kg General appearance: PRESENT: no acute distress, disheveled, well-developed, well-nourished. ABSENT: cooperative Head exam: PRESENT: atraumatic, normocephalic Eye exam: PRESENT: conjunctiva pale. ABSENT: nystagmus, periorbital swelling, scleral icterus Mouth exam: PRESENT: dry mucosa, neck supple, tongue midline, other - ET tube Neck exam: ABSENT: carotid bruit, full ROM, JVD, lymphadenopathy, meningismus, tenderness, thyromegaly, tracheal deviation, tracheostomy, other Respiratory exam: PRESENT: crackles, decreased breath sounds, prolonged expiratory phas, rhonchi, unlabored Cardiovascular exam: PRESENT: RRR, +S1, +S2 Pulses: PRESENT: normal radial pulses GI/Abdominal exam: PRESENT: soft. ABSENT: tenderness Gentrourinary exam: PRESENT: indwelling catheter Extremities exam: PRESENT: pedal edema. ABSENT: calf tenderness, clubbing, joint swelling Musculoskeletal exam: ABSENT: ambulatory, deformity, dislocation Neurological exam: ABSENT: awake Skin exam: PRESENT: dry, warm Results Laboratory Results: 10/12/18 04:23 10/12/18 04:23 10/11/18 10/11/18 10/12/18 15:10 16:25 04:23 WBC RBC Hgb Hct MCV MCH MCHC RDW Plt Count Seg Neutrophils % Lymphocytes % Monocytes % Eosinophils % Basophils % Absolute Neutrophils Absolute Lymphocytes Absolute Monocytes Absolute Eosinophils Absolute Basophils Carbonic Acid HCO3/H2CO3 Ratio ABG pH ABG pCO2 ABG pO2 ABG HCO3 ABG O2 Saturation ABG Base Excess FiO2 Sodium 142.7 143.7 Potassium 3.8 3.5 L Chloride 125 H 125 H Carbon Dioxide 12 L 11 L Anion Gap 6 8 BUN 18 19 Creatinine 1.51 H 1.64 H Est GFR ( Amer) 43 L 39 L Est GFR (Non-Af Amer) 36 L 33 L Glucose 139 H 126 H Lactic Acid 1.2 Calcium 9.3 9.5 Magnesium 1.8 10/12/18 10/12/18 04:23 04:54 WBC 14.7 H RBC 2.29 L Hgb 8.0 L Hct 24.7 L MCV 108 H MCH 34.9 H MCHC 32.4 RDW 24.8 H Plt Count 117 L Seg Neutrophils % 79.0 H Lymphocytes % 10.0 L Monocytes % 6.8 Eosinophils % 3.7 Basophils % 0.5 Absolute Neutrophils 11.6 H Absolute Lymphocytes 1.5 Absolute Monocytes 1.0 Absolute Eosinophils 0.5 Absolute Basophils 0.1 Carbonic Acid 0.77 L HCO3/H2CO3 Ratio 15:1 ABG pH 7.30 L ABG pCO2 25.5 L ABG pO2 86.8 ABG HCO3 12.1 L ABG O2 Saturation 95.9 ABG Base Excess -13.1 FiO2 30% Sodium Potassium Chloride Carbon Dioxide Anion Gap BUN Creatinine Est GFR ( Amer) Est GFR (Non-Af Amer) Glucose Lactic Acid Calcium Magnesium 09/29/18 09/29/18 09/29/18 10:44 10:44 12:59 Creatine Kinase Cancelled CK-MB (CK-2) Troponin I Cancelled 0.028 NT-Pro-B Natriuret Pep 09/29/18 09/29/18 09/29/18 12:59 15:30 15:30 Creatine Kinase 77 161 H CK-MB (CK-2) 2.69 Troponin I 0.028 NT-Pro-B Natriuret Pep 09/29/18 09/29/18 09/30/18 18:59 18:59 00:59 Creatine Kinase 201 H 197 H CK-MB (CK-2) 3.45 Troponin I 0.023 NT-Pro-B Natriuret Pep 09/30/18 10/01/18 10/03/18 00:59 04:13 04:50 Creatine Kinase CK-MB (CK-2) 2.94 Troponin I 0.021 NT-Pro-B Natriuret Pep 2270 H 3170 H 10/09/18 04:50 Creatine Kinase CK-MB (CK-2) Troponin I NT-Pro-B Natriuret Pep 630 Impressions: Head CT 10/03/18 00:00 IMPRESSION: CHRONIC CHANGES OF ATROPHY AND MICROVASCULAR ISCHEMIA. NO ACUTE PROCESS. EVIDENCE OF ACUTE STROKE: NO. KUB X-Ray 10/05/18 00:00 IMPRESSION: Nasogastric tube tip and side port in the stomach Assessment & Plan - Diagnosis (1) Metabolic encephalopathy Is this a current diagnosis for this admission?: Yes Plan: improved somewhat (2) Respiratory failure with hypoxia and hypercapnia Qualifiers: Chronicity: acute Qualified Code(s): J96.01 - Acute respiratory failure with hypoxia; J96.02 - Acute respiratory failure with hypercapnia Is this a current diagnosis for this admission?: Yes Plan: on bipap (3) Septic shock Is this a current diagnosis for this admission?: Yes Plan: improved (4) Acute kidney injury Is this a current diagnosis for this admission?: Yes Plan: requiring HD (5) DIC (disseminated intravascular coagulation) Is this a current diagnosis for this admission?: Yes Plan: as per hematology (6) Thrombocytopenia Is this a current diagnosis for this admission?: Yes Plan: chronic bone marrow toxicity (7) Chronic obstructive pulmonary disease (COPD) Qualifiers: COPD type: unspecified COPD Qualified Code(s): J44.9 - Chronic obstructive pulmonary disease, unspecified Is this a current diagnosis for this admission?: Yes Plan: Continue current bronchodilator therapy - Time Total Critical Time (Minutes): 45
--- NOTE | 2018-11-01 11:19 | PDOC PROGRESS REPORT ---
Subjective Progress Note for:: 10/24/18 Subjective:: bipap dependent Reason For Visit: SEPSIS, UTI, AMS, ACUTE KIDNEY INJURY, DELIRIUM Physical Exam Vital Signs: Temp Pulse Resp BP Pulse Ox 96.6 F L 93 25 H 99/74 L 99 10/24/18 08:00 10/24/18 08:43 10/24/18 08:43 10/24/18 08:00 10/24/18 08:43 Intake & Output 10/23/18 10/24/18 10/25/18 06:59 06:59 06:59 Intake Total 2627 3598 Output Total 980 800 50 Balance 1647 2798 -50 Weight 92.9 kg 95.1 kg General appearance: PRESENT: no acute distress, disheveled, well-developed, well-nourished. ABSENT: cooperative Head exam: PRESENT: atraumatic, normocephalic Eye exam: PRESENT: conjunctiva pale. ABSENT: nystagmus, periorbital swelling, scleral icterus Mouth exam: PRESENT: dry mucosa, neck supple, tongue midline, other - ET tube in place Neck exam: ABSENT: carotid bruit, full ROM, JVD, lymphadenopathy, meningismus, tenderness, thyromegaly, tracheal deviation, tracheostomy, other Respiratory exam: PRESENT: crackles, decreased breath sounds, prolonged expiratory phas, rhonchi, unlabored. ABSENT: stridor Cardiovascular exam: PRESENT: RRR, +S1, +S2 Pulses: PRESENT: normal radial pulses GI/Abdominal exam: PRESENT: soft. ABSENT: tenderness Gentrourinary exam: PRESENT: indwelling catheter Extremities exam: PRESENT: pedal edema. ABSENT: calf tenderness, clubbing, joint swelling Musculoskeletal exam: ABSENT: ambulatory, deformity Neurological exam: ABSENT: awake Skin exam: PRESENT: dry, warm Results Laboratory Results: 10/24/18 03:15 10/24/18 03:15 10/22/18 10/23/18 10/24/18 11:25 15:19 03:15 WBC 13.7 H RBC 2.98 L Hgb 9.4 L Hct 28.2 L MCV 95 D MCH 31.5 MCHC 33.3 RDW 23.0 H Plt Count 66 L Seg Neutrophils % 78.0 Lymphocytes % 8.1 L Monocytes % 7.4 Eosinophils % 6.0 Basophils % 0.5 Absolute Neutrophils 10.7 H Absolute Lymphocytes 1.1 Absolute Monocytes 1.0 Absolute Eosinophils 0.8 H Absolute Basophils 0.1 Carbonic Acid HCO3/H2CO3 Ratio ABG pH ABG pCO2 ABG pO2 ABG HCO3 ABG O2 Saturation ABG Base Excess FiO2 Sodium Potassium 3.9 Chloride Carbon Dioxide Anion Gap BUN Creatinine Est GFR ( Amer) Est GFR (Non-Af Amer) Glucose Calcium Magnesium Total Bilirubin AST ALT Alkaline Phosphatase Total Protein Albumin Blood Type B POSITIVE Antibody Screen NEGATIVE 10/24/18 10/24/18 03:15 03:25 WBC RBC Hgb Hct MCV MCH MCHC RDW Plt Count Seg Neutrophils % Lymphocytes % Monocytes % Eosinophils % Basophils % Absolute Neutrophils Absolute Lymphocytes Absolute Monocytes Absolute Eosinophils Absolute Basophils Carbonic Acid 1.33 HCO3/H2CO3 Ratio 15:1 ABG pH 7.28 L ABG pCO2 44.1 ABG pO2 67.8 L ABG HCO3 20.2 ABG O2 Saturation 91.2 L ABG Base Excess -6.3 FiO2 50% Sodium 145.8 H Potassium 3.9 Chloride 111 H Carbon Dioxide 21 L Anion Gap 14 BUN 9 Creatinine 3.29 H Est GFR ( Amer) 18 L Est GFR (Non-Af Amer) 15 L Glucose 92 Calcium 10.6 H Magnesium 2.3 Total Bilirubin 2.2 H AST 29 ALT 18 Alkaline Phosphatase 102 Total Protein 6.3 Albumin 3.0 L Blood Type Antibody Screen 09/29/18 09/29/18 09/29/18 10:44 10:44 12:59 Creatine Kinase Cancelled CK-MB (CK-2) Troponin I Cancelled 0.028 NT-Pro-B Natriuret Pep 09/29/18 09/29/18 09/29/18 12:59 15:30 15:30 Creatine Kinase 77 161 H CK-MB (CK-2) 2.69 Troponin I 0.028 NT-Pro-B Natriuret Pep 09/29/18 09/29/18 09/30/18 18:59 18:59 00:59 Creatine Kinase 201 H 197 H CK-MB (CK-2) 3.45 Troponin I 0.023 NT-Pro-B Natriuret Pep 09/30/18 10/01/18 10/03/18 00:59 04:13 04:50 Creatine Kinase CK-MB (CK-2) 2.94 Troponin I 0.021 NT-Pro-B Natriuret Pep 2270 H 3170 H 10/09/18 04:50 Creatine Kinase CK-MB (CK-2) Troponin I NT-Pro-B Natriuret Pep 630 Impressions: Head CT 10/03/18 00:00 IMPRESSION: CHRONIC CHANGES OF ATROPHY AND MICROVASCULAR ISCHEMIA. NO ACUTE PROCESS. EVIDENCE OF ACUTE STROKE: NO. KUB X-Ray 10/05/18 00:00 IMPRESSION: Nasogastric tube tip and side port in the stomach Abdomen/Pelvis CT 10/23/18 00:00 IMPRESSION: Marked right pleural effusion and compressive atelectasis or obstructive atelectasis of the right lung. Large left pleural effusion. Generalized ascites. Chest CT 10/23/18 00:00 IMPRESSION: Marked right pleural effusion and compressive atelectasis or obstructive atelectasis of the right lung. Large left pleural effusion. Generalized ascites. Chest X-Ray 10/24/18 06:00 IMPRESSION: INTERVAL IMPROVED AERATION IN THE RIGHT LUNG. BILATERAL PLEURAL EFFUSIONS AND PATCHY AIRSPACE DISEASE IN THE LEFT LUNG. Assessment & Plan - Diagnosis (1) Metabolic encephalopathy Is this a current diagnosis for this admission?: Yes Plan: improved somewhat (2) Respiratory failure with hypoxia and hypercapnia Qualifiers: Chronicity: acute Qualified Code(s): J96.01 - Acute respiratory failure with hypoxia; J96.02 - Acute respiratory failure with hypercapnia Is this a current diagnosis for this admission?: Yes Plan: on bipap (3) Septic shock Is this a current diagnosis for this admission?: Yes Plan: improved (4) Acute kidney injury Is this a current diagnosis for this admission?: Yes Plan: requiring HD (5) DIC (disseminated intravascular coagulation) Is this a current diagnosis for this admission?: Yes Plan: as per hematology (6) Thrombocytopenia Is this a current diagnosis for this admission?: Yes Plan: chronic bone marrow toxicity (7) Chronic obstructive pulmonary disease (COPD) Qualifiers: COPD type: unspecified COPD Qualified Code(s): J44.9 - Chronic obstructive pulmonary disease, unspecified Is this a current diagnosis for this admission?: Yes Plan: Continue current bronchodilator therapy - Time Total Critical Time (Minutes): 45
--- NOTE | 2018-11-01 11:22 | PDOC PROGRESS REPORT ---
Subjective Progress Note for:: 10/13/18 Subjective:: bipap dependent Reason For Visit: SEPSIS, UTI, AMS, ACUTE KIDNEY INJURY, DELIRIUM Physical Exam Vital Signs: Temp Pulse Resp BP Pulse Ox 97.0 F 112 H 21 H 112/95 H 99 10/13/18 07:57 10/13/18 07:57 10/13/18 07:57 10/13/18 07:57 10/13/18 07:57 Intake & Output 10/12/18 10/13/18 10/14/18 06:59 06:59 06:59 Intake Total 4259 2397 Output Total 1775 1180 30 Balance 2484 1217 -30 Weight 90.9 kg 91.4 kg General appearance: PRESENT: no acute distress, disheveled, well-developed, well-nourished. ABSENT: cooperative Head exam: PRESENT: atraumatic, normocephalic Eye exam: PRESENT: conjunctiva pale. ABSENT: nystagmus, periorbital swelling, scleral icterus Mouth exam: PRESENT: dry mucosa, neck supple, tongue midline, other - ET tube Neck exam: ABSENT: carotid bruit, full ROM, JVD, lymphadenopathy, meningismus, tenderness, thyromegaly, tracheal deviation, tracheostomy, other Respiratory exam: PRESENT: crackles, decreased breath sounds, prolonged expiratory phas, rhonchi, unlabored Cardiovascular exam: PRESENT: RRR, +S1, +S2 Pulses: PRESENT: normal radial pulses GI/Abdominal exam: PRESENT: soft. ABSENT: tenderness Gentrourinary exam: PRESENT: indwelling catheter Extremities exam: PRESENT: pedal edema. ABSENT: calf tenderness, clubbing, joint swelling Musculoskeletal exam: ABSENT: ambulatory, deformity Neurological exam: ABSENT: awake Skin exam: PRESENT: dry, warm Results Laboratory Results: 10/13/18 04:10 10/13/18 04:10 10/12/18 10/13/18 10/13/18 10:55 04:10 04:10 WBC RBC Hgb Hct MCV MCH MCHC RDW Plt Count Seg Neutrophils % Lymphocytes % Monocytes % Eosinophils % Basophils % Absolute Neutrophils Absolute Lymphocytes Absolute Monocytes Absolute Eosinophils Absolute Basophils Carbonic Acid 0.77 L HCO3/H2CO3 Ratio 15:1 ABG pH 7.30 L ABG pCO2 25.6 L ABG pO2 93.9 ABG HCO3 12.2 L ABG O2 Saturation 96.6 ABG Base Excess -12.9 FiO2 30% Sodium 145.5 H Potassium 3.4 L Chloride 127 H Carbon Dioxide 11 L Anion Gap 8 BUN 20 Creatinine 1.79 H Est GFR ( Amer) 36 L Est GFR (Non-Af Amer) 29 L Glucose 99 Calcium 9.8 Magnesium 1.9 Urine Color YELLOW Urine Appearance CLOUDY Urine pH 5.0 Ur Specific [place] 1.010 Urine Protein NEGATIVE Urine Glucose (UA) NEGATIVE Urine Ketones NEGATIVE Urine Blood MODERATE H Urine Nitrite NEGATIVE Ur Leukocyte Esterase MODERATE H Urine WBC (Auto) 69 Urine RBC (Auto) 51 10/13/18 04:10 WBC 15.4 H RBC 2.16 L Hgb 7.7 L Hct 23.4 L MCV 109 H MCH 35.6 H MCHC 32.9 RDW 24.9 H Plt Count 112 L Seg Neutrophils % 79.9 H Lymphocytes % 8.8 L Monocytes % 7.5 Eosinophils % 3.4 Basophils % 0.4 Absolute Neutrophils 12.3 H Absolute Lymphocytes 1.4 Absolute Monocytes 1.2 Absolute Eosinophils 0.5 Absolute Basophils 0.1 Carbonic Acid HCO3/H2CO3 Ratio ABG pH ABG pCO2 ABG pO2 ABG HCO3 ABG O2 Saturation ABG Base Excess FiO2 Sodium Potassium Chloride Carbon Dioxide Anion Gap BUN Creatinine Est GFR ( Amer) Est GFR (Non-Af Amer) Glucose Calcium Magnesium Urine Color Urine Appearance Urine pH Ur Specific [place] Urine Protein Urine Glucose (UA) Urine Ketones Urine Blood Urine Nitrite Ur Leukocyte Esterase Urine WBC (Auto) Urine RBC (Auto) 09/29/18 09/29/18 09/29/18 10:44 10:44 12:59 Creatine Kinase Cancelled CK-MB (CK-2) Troponin I Cancelled 0.028 NT-Pro-B Natriuret Pep 09/29/18 09/29/18 09/29/18 12:59 15:30 15:30 Creatine Kinase 77 161 H CK-MB (CK-2) 2.69 Troponin I 0.028 NT-Pro-B Natriuret Pep 09/29/18 09/29/18 09/30/18 18:59 18:59 00:59 Creatine Kinase 201 H 197 H CK-MB (CK-2) 3.45 Troponin I 0.023 NT-Pro-B Natriuret Pep 09/30/18 10/01/18 10/03/18 00:59 04:13 04:50 Creatine Kinase CK-MB (CK-2) 2.94 Troponin I 0.021 NT-Pro-B Natriuret Pep 2270 H 3170 H 10/09/18 04:50 Creatine Kinase CK-MB (CK-2) Troponin I NT-Pro-B Natriuret Pep 630 Impressions: Head CT 10/03/18 00:00 IMPRESSION: CHRONIC CHANGES OF ATROPHY AND MICROVASCULAR ISCHEMIA. NO ACUTE PROCESS. EVIDENCE OF ACUTE STROKE: NO. KUB X-Ray 10/05/18 00:00 IMPRESSION: Nasogastric tube tip and side port in the stomach Chest X-Ray 10/13/18 06:00 IMPRESSION: NO SIGNIFICANT CHANGE IN APPEARANCE OF THE CHEST. Assessment & Plan - Diagnosis (1) Metabolic encephalopathy Is this a current diagnosis for this admission?: Yes Plan: improved somewhat (2) Respiratory failure with hypoxia and hypercapnia Qualifiers: Chronicity: acute Qualified Code(s): J96.01 - Acute respiratory failure with hypoxia; J96.02 - Acute respiratory failure with hypercapnia Is this a current diagnosis for this admission?: Yes Plan: on bipap (3) Septic shock Is this a current diagnosis for this admission?: Yes Plan: improved (4) Acute kidney injury Is this a current diagnosis for this admission?: Yes Plan: requiring HD (5) DIC (disseminated intravascular coagulation) Is this a current diagnosis for this admission?: Yes Plan: as per hematology (6) Thrombocytopenia Is this a current diagnosis for this admission?: Yes Plan: chronic bone marrow toxicity (7) Chronic obstructive pulmonary disease (COPD) Qualifiers: COPD type: unspecified COPD Qualified Code(s): J44.9 - Chronic obstructive pulmonary disease, unspecified Is this a current diagnosis for this admission?: Yes Plan: Continue current bronchodilator therapy - Time Total Critical Time (Minutes): 45
--- NOTE | 2018-11-01 11:26 | PDOC PROGRESS REPORT ---
Subjective Progress Note for:: 10/15/18 Subjective:: Intubated and sedated Reason For Visit: SEPSIS, UTI, AMS, ACUTE KIDNEY INJURY, DELIRIUM Physical Exam Vital Signs: Temp Pulse Resp BP Pulse Ox 98.4 F 96 22 H 100/71 100 10/15/18 07:53 10/15/18 07:53 10/15/18 07:53 10/15/18 07:53 10/15/18 09:31 Intake & Output 10/14/18 10/15/18 10/16/18 06:59 06:59 06:59 Intake Total 1533 3040 142 Output Total 586 3975 150 Balance 947 -935 -8 Weight 92.5 kg 93.2 kg General appearance: PRESENT: no acute distress, disheveled, well-developed, well-nourished. ABSENT: cooperative Head exam: PRESENT: atraumatic, normocephalic Eye exam: PRESENT: conjunctiva pale. ABSENT: nystagmus, periorbital swelling, scleral icterus Mouth exam: PRESENT: dry mucosa, neck supple, tongue midline, other - ET tube in place Neck exam: ABSENT: carotid bruit, full ROM, JVD, lymphadenopathy, meningismus, tenderness, thyromegaly, tracheal deviation, tracheostomy, other Respiratory exam: PRESENT: crackles, decreased breath sounds, prolonged expiratory phas, rhonchi, unlabored. ABSENT: stridor Cardiovascular exam: PRESENT: RRR, +S1, +S2 Pulses: PRESENT: normal radial pulses GI/Abdominal exam: PRESENT: soft. ABSENT: tenderness Gentrourinary exam: PRESENT: indwelling catheter Extremities exam: PRESENT: pedal edema. ABSENT: calf tenderness, clubbing, joint swelling Musculoskeletal exam: ABSENT: deformity, dislocation Neurological exam: ABSENT: awake Skin exam: PRESENT: dry, warm Results Laboratory Results: 10/15/18 04:51 10/15/18 04:15 10/15/18 10/15/18 10/15/18 04:15 04:15 04:22 WBC Cancelled RBC Cancelled Hgb Cancelled Hct Cancelled MCV Cancelled MCH Cancelled MCHC Cancelled RDW Cancelled Plt Count Cancelled Seg Neutrophils % Cancelled Lymphocytes % Cancelled Monocytes % Cancelled Eosinophils % Cancelled Basophils % Cancelled Absolute Neutrophils Cancelled Absolute Lymphocytes Cancelled Absolute Monocytes Cancelled Absolute Eosinophils Cancelled Absolute Basophils Cancelled Carbonic Acid 0.89 L HCO3/H2CO3 Ratio 20:1 ABG pH 7.41 ABG pCO2 29.5 L ABG pO2 91.3 ABG HCO3 18.4 L ABG O2 Saturation 97.2 ABG Base Excess -5.4 FiO2 45% Sodium 139.5 Potassium 2.9 L* Chloride 112 H Carbon Dioxide 15 L Anion Gap 13 BUN 14 Creatinine 1.85 H Est GFR ( Amer) 34 L Est GFR (Non-Af Amer) 28 L Glucose 137 H Calcium 9.1 Magnesium 1.9 Albumin 2.5 L 10/15/18 04:51 WBC 14.8 H RBC 2.09 L Hgb 7.2 L Hct 21.8 L MCV 105 H D MCH 34.7 H MCHC 33.2 RDW 23.8 H Plt Count 85 L Seg Neutrophils % Not Reportable Lymphocytes % Not Reportable Monocytes % Not Reportable Eosinophils % Not Reportable Basophils % Not Reportable Absolute Neutrophils Not Reportable Absolute Lymphocytes Not Reportable Absolute Monocytes Not Reportable Absolute Eosinophils Not Reportable Absolute Basophils Not Reportable Carbonic Acid HCO3/H2CO3 Ratio ABG pH ABG pCO2 ABG pO2 ABG HCO3 ABG O2 Saturation ABG Base Excess FiO2 Sodium Potassium Chloride Carbon Dioxide Anion Gap BUN Creatinine Est GFR ( Amer) Est GFR (Non-Af Amer) Glucose Calcium Magnesium Albumin 10/05/18 11:30 Bronchial Washings Fungal Smear - Final 10/05/18 11:30 Bronchial Washings Fungal Smear - Final 09/29/18 09/29/18 09/29/18 10:44 10:44 12:59 Creatine Kinase Cancelled CK-MB (CK-2) Troponin I Cancelled 0.028 NT-Pro-B Natriuret Pep 09/29/18 09/29/18 09/29/18 12:59 15:30 15:30 Creatine Kinase 77 161 H CK-MB (CK-2) 2.69 Troponin I 0.028 NT-Pro-B Natriuret Pep 09/29/18 09/29/18 09/30/18 18:59 18:59 00:59 Creatine Kinase 201 H 197 H CK-MB (CK-2) 3.45 Troponin I 0.023 NT-Pro-B Natriuret Pep 09/30/18 10/01/18 10/03/18 00:59 04:13 04:50 Creatine Kinase CK-MB (CK-2) 2.94 Troponin I 0.021 NT-Pro-B Natriuret Pep 2270 H 3170 H 10/09/18 04:50 Creatine Kinase CK-MB (CK-2) Troponin I NT-Pro-B Natriuret Pep 630 Impressions: Head CT 10/03/18 00:00 IMPRESSION: CHRONIC CHANGES OF ATROPHY AND MICROVASCULAR ISCHEMIA. NO ACUTE PROCESS. EVIDENCE OF ACUTE STROKE: NO. KUB X-Ray 10/05/18 00:00 IMPRESSION: Nasogastric tube tip and side port in the stomach Chest X-Ray 10/15/18 06:00 IMPRESSION: No significant change. Assessment & Plan - Diagnosis (1) Metabolic encephalopathy Is this a current diagnosis for this admission?: Yes Plan: improved somewhat (2) Respiratory failure with hypoxia and hypercapnia Qualifiers: Chronicity: acute Qualified Code(s): J96.01 - Acute respiratory failure with hypoxia; J96.02 - Acute respiratory failure with hypercapnia Is this a current diagnosis for this admission?: Yes Plan: on bipap (3) Septic shock Is this a current diagnosis for this admission?: Yes Plan: improved (4) Acute kidney injury Is this a current diagnosis for this admission?: Yes Plan: requiring HD (5) DIC (disseminated intravascular coagulation) Is this a current diagnosis for this admission?: Yes Plan: as per hematology (6) Thrombocytopenia Is this a current diagnosis for this admission?: Yes Plan: chronic bone marrow toxicity (7) Chronic obstructive pulmonary disease (COPD) Qualifiers: COPD type: unspecified COPD Qualified Code(s): J44.9 - Chronic obstructive pulmonary disease, unspecified Is this a current diagnosis for this admission?: Yes Plan: Continue current bronchodilator therapy - Time Total Critical Time (Minutes): 40
--- NOTE | 2018-11-01 11:33 | PDOC PROGRESS REPORT ---
Subjective Progress Note for:: 10/18/18 Subjective:: Intubated and sedated Reason For Visit: SEPSIS, UTI, AMS, ACUTE KIDNEY INJURY, DELIRIUM Physical Exam Vital Signs: Temp Pulse Resp BP Pulse Ox 97.5 F 112 H 22 H 107/79 100 10/18/18 09:00 10/18/18 08:35 10/18/18 09:00 10/18/18 08:59 10/18/18 09:00 Intake & Output 10/17/18 10/18/18 10/19/18 06:59 06:59 06:59 Intake Total 2530 2406 Output Total 1350 1535 225 Balance 1180 871 -225 Weight 95.5 kg 95.2 kg General appearance: PRESENT: no acute distress, disheveled, well-developed, well-nourished. ABSENT: cooperative Head exam: PRESENT: atraumatic, normocephalic Eye exam: PRESENT: conjunctiva pale. ABSENT: nystagmus, periorbital swelling Mouth exam: PRESENT: dry mucosa, neck supple, tongue midline, other - ET tube Neck exam: ABSENT: carotid bruit, full ROM, JVD, lymphadenopathy, meningismus, tenderness, thyromegaly, tracheal deviation, tracheostomy, other Respiratory exam: PRESENT: crackles, decreased breath sounds, prolonged expiratory phas, rhonchi, unlabored Cardiovascular exam: PRESENT: RRR, +S1, +S2 Pulses: PRESENT: normal radial pulses GI/Abdominal exam: PRESENT: soft. ABSENT: tenderness Gentrourinary exam: PRESENT: indwelling catheter Extremities exam: PRESENT: pedal edema. ABSENT: calf tenderness, clubbing, joint swelling Musculoskeletal exam: ABSENT: ambulatory, deformity, dislocation Neurological exam: ABSENT: awake Skin exam: PRESENT: dry, warm Results Laboratory Results: 10/18/18 04:50 10/18/18 04:50 10/15/18 10/17/18 10/18/18 15:27 18:53 04:50 WBC RBC Hgb Hct MCV MCH MCHC RDW Plt Count Seg Neutrophils % Lymphocytes % Monocytes % Eosinophils % Basophils % Absolute Neutrophils Absolute Lymphocytes Absolute Monocytes Absolute Eosinophils Absolute Basophils Carbonic Acid Cancelled HCO3/H2CO3 Ratio Cancelled ABG pH Cancelled ABG pCO2 Cancelled ABG pO2 Cancelled ABG HCO3 Cancelled ABG O2 Saturation Cancelled ABG Base Excess Cancelled FiO2 Cancelled Sodium Potassium 3.3 L Chloride Carbon Dioxide Anion Gap BUN Creatinine Est GFR ( Amer) Est GFR (Non-Af Amer) Glucose Lactic Acid Calcium Magnesium Blood Type B POSITIVE Antibody Screen NEGATIVE 10/18/18 10/18/18 10/18/18 04:50 04:50 04:50 WBC 15.5 H RBC 2.93 L Hgb 9.5 L Hct 28.6 L MCV 98 H MCH 32.4 MCHC 33.1 RDW 25.7 H Plt Count 71 L Seg Neutrophils % 75.5 Lymphocytes % 9.7 L Monocytes % 9.5 Eosinophils % 4.8 Basophils % 0.5 Absolute Neutrophils 11.7 H Absolute Lymphocytes 1.5 Absolute Monocytes 1.5 H Absolute Eosinophils 0.8 H Absolute Basophils 0.1 Carbonic Acid HCO3/H2CO3 Ratio ABG pH ABG pCO2 ABG pO2 ABG HCO3 ABG O2 Saturation ABG Base Excess FiO2 Sodium 142.2 Potassium 3.2 L Chloride 113 H Carbon Dioxide 18 L Anion Gap 11 BUN 14 Creatinine 3.23 H Est GFR ( Amer) 18 L Est GFR (Non-Af Amer) 15 L Glucose 106 Lactic Acid 0.9 Calcium 10.1 Magnesium 2.1 Blood Type Antibody Screen 10/18/18 05:44 WBC RBC Hgb Hct MCV MCH MCHC RDW Plt Count Seg Neutrophils % Lymphocytes % Monocytes % Eosinophils % Basophils % Absolute Neutrophils Absolute Lymphocytes Absolute Monocytes Absolute Eosinophils Absolute Basophils Carbonic Acid 0.81 L HCO3/H2CO3 Ratio 19:1 ABG pH 7.40 ABG pCO2 26.8 L ABG pO2 70.9 L ABG HCO3 16.1 L ABG O2 Saturation 94.6 ABG Base Excess -7.5 FiO2 30% Sodium Potassium Chloride Carbon Dioxide Anion Gap BUN Creatinine Est GFR ( Amer) Est GFR (Non-Af Amer) Glucose Lactic Acid Calcium Magnesium Blood Type Antibody Screen 09/29/18 09/29/18 09/29/18 10:44 10:44 12:59 Creatine Kinase Cancelled CK-MB (CK-2) Troponin I Cancelled 0.028 NT-Pro-B Natriuret Pep 09/29/18 09/29/18 09/29/18 12:59 15:30 15:30 Creatine Kinase 77 161 H CK-MB (CK-2) 2.69 Troponin I 0.028 NT-Pro-B Natriuret Pep 09/29/18 09/29/18 09/30/18 18:59 18:59 00:59 Creatine Kinase 201 H 197 H CK-MB (CK-2) 3.45 Troponin I 0.023 NT-Pro-B Natriuret Pep 09/30/18 10/01/18 10/03/18 00:59 04:13 04:50 Creatine Kinase CK-MB (CK-2) 2.94 Troponin I 0.021 NT-Pro-B Natriuret Pep 2270 H 3170 H 10/09/18 04:50 Creatine Kinase CK-MB (CK-2) Troponin I NT-Pro-B Natriuret Pep 630 Impressions: Head CT 10/03/18 00:00 IMPRESSION: CHRONIC CHANGES OF ATROPHY AND MICROVASCULAR ISCHEMIA. NO ACUTE PROCESS. EVIDENCE OF ACUTE STROKE: NO. KUB X-Ray 10/05/18 00:00 IMPRESSION: Nasogastric tube tip and side port in the stomach Assessment & Plan - Diagnosis (1) Metabolic encephalopathy Is this a current diagnosis for this admission?: Yes Plan: improved somewhat (2) Respiratory failure with hypoxia and hypercapnia Qualifiers: Chronicity: acute Qualified Code(s): J96.01 - Acute respiratory failure with hypoxia; J96.02 - Acute respiratory failure with hypercapnia Is this a current diagnosis for this admission?: Yes Plan: on bipap (3) Septic shock Is this a current diagnosis for this admission?: Yes Plan: improved (4) Acute kidney injury Is this a current diagnosis for this admission?: Yes Plan: requiring HD (5) DIC (disseminated intravascular coagulation) Is this a current diagnosis for this admission?: Yes Plan: as per hematology (6) Thrombocytopenia Is this a current diagnosis for this admission?: Yes Plan: chronic bone marrow toxicity (7) Chronic obstructive pulmonary disease (COPD) Qualifiers: COPD type: unspecified COPD Qualified Code(s): J44.9 - Chronic obstructive pulmonary disease, unspecified Is this a current diagnosis for this admission?: Yes Plan: Continue current bronchodilator therapy - Time Total Critical Time (Minutes): 45
--- NOTE | 2018-11-01 11:35 | PDOC PROGRESS REPORT ---
Subjective Progress Note for:: 10/19/18 Subjective:: Intubated and sedated Reason For Visit: SEPSIS, UTI, AMS, ACUTE KIDNEY INJURY, DELIRIUM Physical Exam Vital Signs: Temp Pulse Resp BP Pulse Ox 97.2 F 95 20 113/82 95 10/19/18 08:01 10/19/18 08:00 10/19/18 08:01 10/19/18 08:00 10/19/18 08:33 Intake & Output 10/18/18 10/19/18 10/20/18 06:59 06:59 06:59 Intake Total 2406 2571 1000 Output Total 1535 1815 150 Balance 871 756 850 Weight 95.2 kg 93.5 kg General appearance: PRESENT: no acute distress, disheveled, well-developed, well-nourished. ABSENT: cooperative Head exam: PRESENT: atraumatic, normocephalic Eye exam: PRESENT: conjunctiva pale. ABSENT: nystagmus, periorbital swelling Mouth exam: PRESENT: dry mucosa, neck supple, tongue midline, other - ET tube Neck exam: ABSENT: carotid bruit, full ROM, JVD, lymphadenopathy, meningismus, tenderness, thyromegaly, tracheal deviation, tracheostomy, other Respiratory exam: PRESENT: crackles, decreased breath sounds, prolonged expiratory phas, rhonchi, unlabored. ABSENT: rales, retraction Cardiovascular exam: PRESENT: RRR, +S1, +S2 Pulses: PRESENT: normal radial pulses GI/Abdominal exam: PRESENT: soft. ABSENT: tenderness Gentrourinary exam: PRESENT: indwelling catheter Extremities exam: PRESENT: pedal edema. ABSENT: calf tenderness, clubbing, joint swelling Musculoskeletal exam: ABSENT: ambulatory, deformity, dislocation Neurological exam: ABSENT: awake Skin exam: PRESENT: dry, warm Results Laboratory Results: 10/19/18 04:35 10/19/18 04:35 10/18/18 10/19/18 10/19/18 16:25 04:35 04:35 WBC 14.9 H RBC 2.78 L Hgb 9.0 L Hct 26.9 L MCV 97 MCH 32.5 MCHC 33.6 RDW 25.2 H Plt Count 70 L Seg Neutrophils % 71.8 Lymphocytes % 12.4 L Monocytes % 8.2 Eosinophils % 6.8 H Basophils % 0.8 Absolute Neutrophils 10.7 H Absolute Lymphocytes 1.8 Absolute Monocytes 1.2 Absolute Eosinophils 1.0 H Absolute Basophils 0.1 Carbonic Acid HCO3/H2CO3 Ratio ABG pH ABG pCO2 ABG pO2 ABG HCO3 ABG O2 Saturation ABG Base Excess FiO2 Sodium 142.0 Potassium 3.4 L 3.3 L Chloride 114 H Carbon Dioxide 16 L Anion Gap 12 BUN 14 Creatinine 3.43 H Est GFR ( Amer) 17 L Est GFR (Non-Af Amer) 14 L Glucose 106 Calcium 10.0 Magnesium 2.2 Total Bilirubin 1.8 H AST 27 ALT 23 Alkaline Phosphatase 120 Total Protein 6.0 L Albumin 2.5 L 10/19/18 10/19/18 05:27 06:29 WBC RBC Hgb Hct MCV MCH MCHC RDW Plt Count Seg Neutrophils % Lymphocytes % Monocytes % Eosinophils % Basophils % Absolute Neutrophils Absolute Lymphocytes Absolute Monocytes Absolute Eosinophils Absolute Basophils Carbonic Acid Cancelled 0.77 L HCO3/H2CO3 Ratio Cancelled 21:1 ABG pH Cancelled 7.44 ABG pCO2 Cancelled 25.5 L ABG pO2 Cancelled 74.1 L ABG HCO3 Cancelled 16.7 L ABG O2 Saturation Cancelled 95.6 ABG Base Excess Cancelled -5.9 FiO2 Cancelled 30% Sodium Potassium Chloride Carbon Dioxide Anion Gap BUN Creatinine Est GFR ( Amer) Est GFR (Non-Af Amer) Glucose Calcium Magnesium Total Bilirubin AST ALT Alkaline Phosphatase Total Protein Albumin 09/29/18 09/29/18 09/29/18 10:44 10:44 12:59 Creatine Kinase Cancelled CK-MB (CK-2) Troponin I Cancelled 0.028 NT-Pro-B Natriuret Pep 09/29/18 09/29/18 09/29/18 12:59 15:30 15:30 Creatine Kinase 77 161 H CK-MB (CK-2) 2.69 Troponin I 0.028 NT-Pro-B Natriuret Pep 09/29/18 09/29/18 09/30/18 18:59 18:59 00:59 Creatine Kinase 201 H 197 H CK-MB (CK-2) 3.45 Troponin I 0.023 NT-Pro-B Natriuret Pep 09/30/18 10/01/18 10/03/18 00:59 04:13 04:50 Creatine Kinase CK-MB (CK-2) 2.94 Troponin I 0.021 NT-Pro-B Natriuret Pep 2270 H 3170 H 10/09/18 04:50 Creatine Kinase CK-MB (CK-2) Troponin I NT-Pro-B Natriuret Pep 630 Impressions: Head CT 10/03/18 00:00 IMPRESSION: CHRONIC CHANGES OF ATROPHY AND MICROVASCULAR ISCHEMIA. NO ACUTE PROCESS. EVIDENCE OF ACUTE STROKE: NO. KUB X-Ray 10/05/18 00:00 IMPRESSION: Nasogastric tube tip and side port in the stomach Chest X-Ray 10/19/18 07:00 IMPRESSION: 1. Increasing opacification of the right lung apex and increasing volume loss of the right lung which may be due to a combination of pleural fluid and atelectasis. 2. Grossly stable mild left perihilar airspace disease. 3. Stable life support lines and tubes. Assessment & Plan - Diagnosis (1) Metabolic encephalopathy Is this a current diagnosis for this admission?: Yes Plan: improved somewhat (2) Respiratory failure with hypoxia and hypercapnia Qualifiers: Chronicity: acute Qualified Code(s): J96.01 - Acute respiratory failure with hypoxia; J96.02 - Acute respiratory failure with hypercapnia Is this a current diagnosis for this admission?: Yes Plan: on bipap (3) Septic shock Is this a current diagnosis for this admission?: Yes Plan: improved (4) Acute kidney injury Is this a current diagnosis for this admission?: Yes Plan: requiring HD (5) DIC (disseminated intravascular coagulation) Is this a current diagnosis for this admission?: Yes Plan: as per hematology (6) Thrombocytopenia Is this a current diagnosis for this admission?: Yes Plan: chronic bone marrow toxicity (7) Chronic obstructive pulmonary disease (COPD) Qualifiers: COPD type: unspecified COPD Qualified Code(s): J44.9 - Chronic obstructive pulmonary disease, unspecified Is this a current diagnosis for this admission?: Yes Plan: Continue current bronchodilator therapy - Time Total Critical Time (Minutes): 45
--- NOTE | 2018-11-01 11:38 | PDOC PROGRESS REPORT ---
Subjective Progress Note for:: 10/20/18 Subjective:: Intubated and sedated Reason For Visit: SEPSIS, UTI, AMS, ACUTE KIDNEY INJURY, DELIRIUM Physical Exam Vital Signs: Temp Pulse Resp BP Pulse Ox 96.8 F L 95 22 H 111/73 100 10/20/18 08:00 10/20/18 08:00 10/20/18 08:00 10/20/18 08:00 10/20/18 08:30 Intake & Output 10/19/18 10/20/18 10/21/18 06:59 06:59 06:59 Intake Total 2571 3167 88 Output Total 1815 3100 100 Balance 756 67 -12 Weight 93.5 kg 92.8 kg General appearance: PRESENT: no acute distress, disheveled, well-developed, well-nourished. ABSENT: cooperative Head exam: PRESENT: atraumatic, normocephalic Eye exam: PRESENT: conjunctiva pale. ABSENT: nystagmus, periorbital swelling Mouth exam: PRESENT: dry mucosa, neck supple, tongue midline, other - ET tube Neck exam: ABSENT: carotid bruit, full ROM, JVD, lymphadenopathy, meningismus, tenderness, thyromegaly, tracheal deviation, tracheostomy, other Respiratory exam: PRESENT: crackles, decreased breath sounds, prolonged expiratory phas, rhonchi, unlabored Cardiovascular exam: PRESENT: RRR, +S1, +S2 Pulses: PRESENT: normal radial pulses GI/Abdominal exam: PRESENT: soft. ABSENT: tenderness Gentrourinary exam: PRESENT: indwelling catheter Extremities exam: PRESENT: pedal edema. ABSENT: calf tenderness, clubbing, joint swelling Musculoskeletal exam: ABSENT: ambulatory, deformity, dislocation Neurological exam: ABSENT: awake Skin exam: PRESENT: dry, warm Results Laboratory Results: 10/20/18 03:41 10/20/18 03:41 10/19/18 10/20/18 10/20/18 12:00 03:41 03:41 WBC 15.2 H RBC 2.88 L Hgb 9.2 L Hct 27.7 L MCV 96 MCH 32.1 MCHC 33.3 RDW 24.9 H Plt Count 57 L Seg Neutrophils % 72.7 Lymphocytes % 11.1 L Monocytes % 8.5 Eosinophils % 6.8 H Basophils % 0.9 Absolute Neutrophils 11.1 H Absolute Lymphocytes 1.7 Absolute Monocytes 1.3 Absolute Eosinophils 1.0 H Absolute Basophils 0.1 Carbonic Acid HCO3/H2CO3 Ratio ABG pH ABG pCO2 ABG pO2 ABG HCO3 ABG O2 Saturation ABG Base Excess FiO2 Sodium 142.0 Potassium 3.9 3.4 L Chloride 111 H Carbon Dioxide 20 L Anion Gap 11 BUN 11 Creatinine 3.01 H Est GFR ( Amer) 20 L Est GFR (Non-Af Amer) 16 L Glucose 109 Calcium 9.8 Magnesium 2.1 10/20/18 10/20/18 06:15 06:54 WBC RBC Hgb Hct MCV MCH MCHC RDW Plt Count Seg Neutrophils % Lymphocytes % Monocytes % Eosinophils % Basophils % Absolute Neutrophils Absolute Lymphocytes Absolute Monocytes Absolute Eosinophils Absolute Basophils Carbonic Acid Cancelled 0.84 L HCO3/H2CO3 Ratio Cancelled 25:1 ABG pH Cancelled 7.51 H ABG pCO2 Cancelled 27.8 L ABG pO2 Cancelled 72.6 L ABG HCO3 Cancelled 21.7 ABG O2 Saturation Cancelled 96.1 ABG Base Excess Cancelled -0.6 FiO2 Cancelled 35% Sodium Potassium Chloride Carbon Dioxide Anion Gap BUN Creatinine Est GFR ( Amer) Est GFR (Non-Af Amer) Glucose Calcium Magnesium 09/29/18 09/29/18 09/29/18 10:44 10:44 12:59 Creatine Kinase Cancelled CK-MB (CK-2) Troponin I Cancelled 0.028 NT-Pro-B Natriuret Pep 09/29/18 09/29/18 09/29/18 12:59 15:30 15:30 Creatine Kinase 77 161 H CK-MB (CK-2) 2.69 Troponin I 0.028 NT-Pro-B Natriuret Pep 09/29/18 09/29/18 09/30/18 18:59 18:59 00:59 Creatine Kinase 201 H 197 H CK-MB (CK-2) 3.45 Troponin I 0.023 NT-Pro-B Natriuret Pep 09/30/18 10/01/18 10/03/18 00:59 04:13 04:50 Creatine Kinase CK-MB (CK-2) 2.94 Troponin I 0.021 NT-Pro-B Natriuret Pep 2270 H 3170 H 10/09/18 04:50 Creatine Kinase CK-MB (CK-2) Troponin I NT-Pro-B Natriuret Pep 630 Impressions: Head CT 10/03/18 00:00 IMPRESSION: CHRONIC CHANGES OF ATROPHY AND MICROVASCULAR ISCHEMIA. NO ACUTE PROCESS. EVIDENCE OF ACUTE STROKE: NO. KUB X-Ray 10/05/18 00:00 IMPRESSION: Nasogastric tube tip and side port in the stomach Chest X-Ray 10/20/18 07:00 IMPRESSION: Stable appearance compared to yesterday. Assessment & Plan - Diagnosis (1) Metabolic encephalopathy Is this a current diagnosis for this admission?: Yes Plan: improved somewhat (2) Respiratory failure with hypoxia and hypercapnia Qualifiers: Chronicity: acute Qualified Code(s): J96.01 - Acute respiratory failure with hypoxia; J96.02 - Acute respiratory failure with hypercapnia Is this a current diagnosis for this admission?: Yes Plan: on bipap (3) Septic shock Is this a current diagnosis for this admission?: Yes Plan: improved (4) Acute kidney injury Is this a current diagnosis for this admission?: Yes Plan: requiring HD (5) DIC (disseminated intravascular coagulation) Is this a current diagnosis for this admission?: Yes Plan: as per hematology (6) Thrombocytopenia Is this a current diagnosis for this admission?: Yes Plan: chronic bone marrow toxicity (7) Chronic obstructive pulmonary disease (COPD) Qualifiers: COPD type: unspecified COPD Qualified Code(s): J44.9 - Chronic obstructive pulmonary disease, unspecified Is this a current diagnosis for this admission?: Yes Plan: Continue current bronchodilator therapy - Time Total Critical Time (Minutes): 45
--- NOTE | 2018-11-01 11:41 | PDOC PROGRESS REPORT ---
Subjective Progress Note for:: 10/21/18 Subjective:: Hoping to extubate to BiPAP Reason For Visit: SEPSIS, UTI, AMS, ACUTE KIDNEY INJURY, DELIRIUM Physical Exam Vital Signs: Temp Pulse Resp BP Pulse Ox 98.4 F 93 20 103/74 98 10/21/18 08:00 10/21/18 08:00 10/21/18 08:00 10/21/18 08:00 10/21/18 08:00 Intake & Output 10/20/18 10/21/18 10/22/18 06:59 06:59 06:59 Intake Total 3267 982 10 Output Total 3100 07308 175 Balance 167 -32433 -165 Weight 92.8 kg 93.1 kg General appearance: PRESENT: no acute distress, disheveled, well-developed, well-nourished. ABSENT: cooperative Head exam: PRESENT: atraumatic, normocephalic Eye exam: PRESENT: conjunctiva pale. ABSENT: nystagmus, periorbital swelling Mouth exam: PRESENT: dry mucosa, neck supple, tongue midline, other - ET tube Neck exam: ABSENT: carotid bruit, full ROM, JVD, lymphadenopathy, meningismus, tenderness, thyromegaly, tracheal deviation, tracheostomy, other Respiratory exam: PRESENT: crackles, decreased breath sounds, prolonged expiratory phas, rhonchi, unlabored Cardiovascular exam: PRESENT: RRR, +S1, +S2 Pulses: PRESENT: normal radial pulses GI/Abdominal exam: PRESENT: soft. ABSENT: tenderness Gentrourinary exam: PRESENT: indwelling catheter Extremities exam: PRESENT: pedal edema. ABSENT: calf tenderness, clubbing, joint swelling Musculoskeletal exam: ABSENT: ambulatory, deformity, dislocation Neurological exam: PRESENT: altered, awake Psychiatric exam: PRESENT: flat affect Skin exam: PRESENT: dry, warm Results Laboratory Results: 10/21/18 05:15 10/21/18 05:15 10/21/18 10/21/18 10/21/18 05:15 05:15 05:15 WBC 13.6 H RBC 2.74 L Hgb 8.9 L Hct 26.4 L MCV 97 MCH 32.6 MCHC 33.8 RDW 24.7 H Plt Count 68 L Seg Neutrophils % 71.3 Lymphocytes % 12.9 L Monocytes % 7.7 Eosinophils % 7.7 H Basophils % 0.4 Absolute Neutrophils 9.7 H Absolute Lymphocytes 1.8 Absolute Monocytes 1.0 Absolute Eosinophils 1.0 H Absolute Basophils 0.1 Carbonic Acid 0.82 L HCO3/H2CO3 Ratio 25:1 ABG pH 7.51 H ABG pCO2 27.4 L ABG pO2 71.6 L ABG HCO3 21.1 ABG O2 Saturation 95.9 ABG Base Excess -1.2 FiO2 35% Sodium 142.2 Potassium 3.7 Chloride 113 H Carbon Dioxide 20 L Anion Gap 9 BUN 11 Creatinine 3.26 H Est GFR ( Amer) 18 L Est GFR (Non-Af Amer) 15 L Glucose 109 Calcium 9.8 Magnesium 2.1 09/29/18 09/29/18 09/29/18 10:44 10:44 12:59 Creatine Kinase Cancelled CK-MB (CK-2) Troponin I Cancelled 0.028 NT-Pro-B Natriuret Pep 09/29/18 09/29/18 09/29/18 12:59 15:30 15:30 Creatine Kinase 77 161 H CK-MB (CK-2) 2.69 Troponin I 0.028 NT-Pro-B Natriuret Pep 09/29/18 09/29/18 09/30/18 18:59 18:59 00:59 Creatine Kinase 201 H 197 H CK-MB (CK-2) 3.45 Troponin I 0.023 NT-Pro-B Natriuret Pep 09/30/18 10/01/18 10/03/18 00:59 04:13 04:50 Creatine Kinase CK-MB (CK-2) 2.94 Troponin I 0.021 NT-Pro-B Natriuret Pep 2270 H 3170 H 10/09/18 04:50 Creatine Kinase CK-MB (CK-2) Troponin I NT-Pro-B Natriuret Pep 630 Impressions: Head CT 10/03/18 00:00 IMPRESSION: CHRONIC CHANGES OF ATROPHY AND MICROVASCULAR ISCHEMIA. NO ACUTE PROCESS. EVIDENCE OF ACUTE STROKE: NO. KUB X-Ray 10/05/18 00:00 IMPRESSION: Nasogastric tube tip and side port in the stomach Chest X-Ray 10/21/18 07:00 IMPRESSION: Repositioning of the endotracheal tube which lies 2.7 cm above the jana. No other interval change. Assessment & Plan - Diagnosis (1) Metabolic encephalopathy Is this a current diagnosis for this admission?: Yes Plan: improved somewhat (2) Respiratory failure with hypoxia and hypercapnia Qualifiers: Chronicity: acute Qualified Code(s): J96.01 - Acute respiratory failure with hypoxia; J96.02 - Acute respiratory failure with hypercapnia Is this a current diagnosis for this admission?: Yes Plan: Improving (3) Septic shock Is this a current diagnosis for this admission?: Yes Plan: improved (4) Acute kidney injury Is this a current diagnosis for this admission?: Yes Plan: requiring HD (5) DIC (disseminated intravascular coagulation) Is this a current diagnosis for this admission?: Yes Plan: as per hematology (6) Thrombocytopenia Is this a current diagnosis for this admission?: Yes Plan: chronic bone marrow toxicity (7) Chronic obstructive pulmonary disease (COPD) Qualifiers: COPD type: unspecified COPD Qualified Code(s): J44.9 - Chronic obstructive pulmonary disease, unspecified Is this a current diagnosis for this admission?: Yes Plan: Continue current bronchodilator therapy - Time Total Critical Time (Minutes): 45
--- NOTE | 2018-11-01 11:46 | PDOC PROGRESS REPORT ---
Subjective Progress Note for:: 10/25/18 Subjective:: Stable s/p extubation to bi-pap Reason For Visit: SEPSIS, UTI, AMS, ACUTE KIDNEY INJURY, DELIRIUM Physical Exam Vital Signs: Temp Pulse Resp BP Pulse Ox 96.6 F L 93 11 L 102/73 95 10/25/18 08:00 10/25/18 08:41 10/25/18 08:00 10/25/18 08:00 10/25/18 08:00 Intake & Output 10/24/18 10/25/18 10/26/18 06:59 06:59 06:59 Intake Total 3598 1575 Output Total 800 3677 15 Balance 2798 -2102 -15 Weight 95.1 kg 91.3 kg General appearance: PRESENT: no acute distress, disheveled, well-developed, well-nourished Head exam: PRESENT: atraumatic, normocephalic Eye exam: PRESENT: conjunctiva pale, EOMI. ABSENT: nystagmus, periorbital swelling Mouth exam: PRESENT: dry mucosa, neck supple, tongue midline Neck exam: ABSENT: carotid bruit, full ROM, JVD, lymphadenopathy, meningismus, tenderness, thyromegaly, tracheal deviation, tracheostomy, other Respiratory exam: PRESENT: decreased breath sounds, prolonged expiratory phas, rales, rhonchi, unlabored Cardiovascular exam: PRESENT: RRR, +S1, +S2 Pulses: PRESENT: normal radial pulses GI/Abdominal exam: PRESENT: soft. ABSENT: tenderness Extremities exam: PRESENT: pedal edema. ABSENT: calf tenderness, clubbing, joint swelling Musculoskeletal exam: ABSENT: deformity, dislocation Neurological exam: PRESENT: altered, awake Skin exam: PRESENT: dry, warm Results Laboratory Results: 10/24/18 03:15 10/25/18 05:00 10/22/18 10/25/18 11:25 05:00 Sodium 145.7 H Potassium 3.9 Chloride 111 H Carbon Dioxide 24 Anion Gap 11 BUN 8 Creatinine 2.97 H Est GFR ( Amer) 20 L Est GFR (Non-Af Amer) 16 L Glucose 78 Calcium 10.3 H Magnesium 2.2 Blood Type B POSITIVE Antibody Screen NEGATIVE 09/29/18 09/29/18 09/29/18 10:44 10:44 12:59 Creatine Kinase Cancelled CK-MB (CK-2) Troponin I Cancelled 0.028 NT-Pro-B Natriuret Pep 09/29/18 09/29/18 09/29/18 12:59 15:30 15:30 Creatine Kinase 77 161 H CK-MB (CK-2) 2.69 Troponin I 0.028 NT-Pro-B Natriuret Pep 09/29/18 09/29/18 09/30/18 18:59 18:59 00:59 Creatine Kinase 201 H 197 H CK-MB (CK-2) 3.45 Troponin I 0.023 NT-Pro-B Natriuret Pep 09/30/18 10/01/18 10/03/18 00:59 04:13 04:50 Creatine Kinase CK-MB (CK-2) 2.94 Troponin I 0.021 NT-Pro-B Natriuret Pep 2270 H 3170 H 10/09/18 04:50 Creatine Kinase CK-MB (CK-2) Troponin I NT-Pro-B Natriuret Pep 630 Impressions: Head CT 10/03/18 00:00 IMPRESSION: CHRONIC CHANGES OF ATROPHY AND MICROVASCULAR ISCHEMIA. NO ACUTE PROCESS. EVIDENCE OF ACUTE STROKE: NO. KUB X-Ray 10/05/18 00:00 IMPRESSION: Nasogastric tube tip and side port in the stomach Abdomen/Pelvis CT 10/23/18 00:00 IMPRESSION: Marked right pleural effusion and compressive atelectasis or obstructive atelectasis of the right lung. Large left pleural effusion. Generalized ascites. Chest CT 10/23/18 00:00 IMPRESSION: Marked right pleural effusion and compressive atelectasis or obstructive atelectasis of the right lung. Large left pleural effusion. Generalized ascites. Chest X-Ray 10/25/18 07:00 IMPRESSION: Worsening includes near complete opacification/effusion of the right hemithorax. Assessment & Plan - Diagnosis (1) Metabolic encephalopathy Is this a current diagnosis for this admission?: Yes Plan: improved somewhat (2) Respiratory failure with hypoxia and hypercapnia Qualifiers: Chronicity: acute Qualified Code(s): J96.01 - Acute respiratory failure with hypoxia; J96.02 - Acute respiratory failure with hypercapnia Is this a current diagnosis for this admission?: Yes Plan: stable s/p extubation (3) Septic shock Is this a current diagnosis for this admission?: No (4) Acute kidney injury Is this a current diagnosis for this admission?: Yes Plan: requiring HD (5) DIC (disseminated intravascular coagulation) Is this a current diagnosis for this admission?: Yes Plan: as per hematology (6) Thrombocytopenia Is this a current diagnosis for this admission?: Yes Plan: chronic bone marrow toxicity (7) Chronic obstructive pulmonary disease (COPD) Qualifiers: COPD type: unspecified COPD Qualified Code(s): J44.9 - Chronic obstructive pulmonary disease, unspecified Is this a current diagnosis for this admission?: Yes Plan: Continue current bronchodilator therapy - Time Total Critical Time (Minutes): 45
--- NOTE | 2018-11-01 11:49 | PDOC PROGRESS REPORT ---
Subjective Progress Note for:: 10/26/18 Subjective:: Stable s/p extubation to bi-pap Reason For Visit: SEPSIS, UTI, AMS, ACUTE KIDNEY INJURY, DELIRIUM Physical Exam Vital Signs: Temp Pulse Resp BP Pulse Ox 97.0 F 89 15 130/81 H 97 10/26/18 08:00 10/26/18 08:19 10/26/18 08:19 10/26/18 08:00 10/26/18 08:19 Intake & Output 10/25/18 10/26/18 10/27/18 06:59 06:59 06:59 Intake Total 1825 2241 50 Output Total 3677 378 75 Balance -1852 1863 -25 Weight 91.3 kg 89.9 kg General appearance: PRESENT: no acute distress, disheveled, well-developed, well-nourished. ABSENT: cooperative Head exam: PRESENT: atraumatic, normocephalic Eye exam: PRESENT: conjunctiva pale, EOMI. ABSENT: nystagmus, periorbital swelling Mouth exam: PRESENT: dry mucosa, neck supple, tongue midline Neck exam: ABSENT: carotid bruit, full ROM, JVD, lymphadenopathy, meningismus, tenderness, thyromegaly, tracheal deviation, tracheostomy, other Respiratory exam: PRESENT: crackles, decreased breath sounds, prolonged expiratory phas, rhonchi, tachypnea, unlabored Cardiovascular exam: PRESENT: RRR, +S1, +S2 Pulses: PRESENT: normal radial pulses GI/Abdominal exam: PRESENT: soft. ABSENT: tenderness Gentrourinary exam: PRESENT: indwelling catheter Extremities exam: PRESENT: pedal edema. ABSENT: calf tenderness, clubbing, joint swelling Musculoskeletal exam: ABSENT: ambulatory, deformity, dislocation Neurological exam: PRESENT: altered, awake Psychiatric exam: PRESENT: flat affect Skin exam: PRESENT: dry, warm Results Laboratory Results: 10/26/18 04:20 10/26/18 04:20 10/25/18 10/25/18 10/26/18 15:50 18:00 04:20 WBC RBC Hgb Hct MCV MCH MCHC RDW Plt Count Seg Neutrophils % Lymphocytes % Monocytes % Eosinophils % Basophils % Absolute Neutrophils Absolute Lymphocytes Absolute Monocytes Absolute Eosinophils Absolute Basophils Carbonic Acid 1.69 H HCO3/H2CO3 Ratio 15:1 ABG pH 7.29 L ABG pCO2 56.3 H ABG pO2 81.4 ABG HCO3 26.4 H ABG O2 Saturation 94.5 ABG Base Excess -0.6 FiO2 60% Sodium Potassium Chloride Carbon Dioxide Anion Gap BUN Creatinine Est GFR ( Amer) Est GFR (Non-Af Amer) Glucose Calcium Magnesium Total Protein 5.8 L Fluid Type PLEURAL Fluid Source ASCITES Fluid Color YELLOW Fluid Appearance CLEAR Fluid Viscosity LIQUID Fluid WBC 145 Fluid RBC 182 10/26/18 10/26/18 04:20 04:20 WBC 12.7 H RBC 2.78 L Hgb 9.0 L Hct 27.5 L MCV 99 H D MCH 32.5 MCHC 32.8 RDW 23.6 H Plt Count 74 L Seg Neutrophils % 74.4 Lymphocytes % 11.0 L Monocytes % 9.4 Eosinophils % 4.9 Basophils % 0.3 Absolute Neutrophils 9.5 H Absolute Lymphocytes 1.4 Absolute Monocytes 1.2 Absolute Eosinophils 0.6 Absolute Basophils 0.0 Carbonic Acid HCO3/H2CO3 Ratio ABG pH ABG pCO2 ABG pO2 ABG HCO3 ABG O2 Saturation ABG Base Excess FiO2 Sodium 145.9 H Potassium 3.9 Chloride 111 H Carbon Dioxide 25 Anion Gap 10 BUN 8 Creatinine 3.20 H Est GFR ( Amer) 18 L Est GFR (Non-Af Amer) 15 L Glucose 113 H Calcium 10.6 H Magnesium 2.3 Total Protein Fluid Type Fluid Source Fluid Color Fluid Appearance Fluid Viscosity Fluid WBC Fluid RBC 09/29/18 09/29/18 09/29/18 10:44 10:44 12:59 Creatine Kinase Cancelled CK-MB (CK-2) Troponin I Cancelled 0.028 NT-Pro-B Natriuret Pep 09/29/18 09/29/18 09/29/18 12:59 15:30 15:30 Creatine Kinase 77 161 H CK-MB (CK-2) 2.69 Troponin I 0.028 NT-Pro-B Natriuret Pep 09/29/18 09/29/18 09/30/18 18:59 18:59 00:59 Creatine Kinase 201 H 197 H CK-MB (CK-2) 3.45 Troponin I 0.023 NT-Pro-B Natriuret Pep 09/30/18 10/01/18 10/03/18 00:59 04:13 04:50 Creatine Kinase CK-MB (CK-2) 2.94 Troponin I 0.021 NT-Pro-B Natriuret Pep 2270 H 3170 H 10/09/18 04:50 Creatine Kinase CK-MB (CK-2) Troponin I NT-Pro-B Natriuret Pep 630 Impressions: Head CT 10/03/18 00:00 IMPRESSION: CHRONIC CHANGES OF ATROPHY AND MICROVASCULAR ISCHEMIA. NO ACUTE PROCESS. EVIDENCE OF ACUTE STROKE: NO. KUB X-Ray 10/05/18 00:00 IMPRESSION: Nasogastric tube tip and side port in the stomach Abdomen/Pelvis CT 10/23/18 00:00 IMPRESSION: Marked right pleural effusion and compressive atelectasis or obstructive atelectasis of the right lung. Large left pleural effusion. Generalized ascites. Chest CT 10/23/18 00:00 IMPRESSION: Marked right pleural effusion and compressive atelectasis or obstructive atelectasis of the right lung. Large left pleural effusion. Generalized ascites. Chest Ultrasound 10/25/18 00:08 IMPRESSION: See above. Paracentesis Ultrasound 10/25/18 12:53 IMPRESSION: Successful ultrasound-guided paracentesis Chest X-Ray 10/26/18 06:00 IMPRESSION: Worsening includes complete white out of the right hemithorax. Differential diagnosis includes effusion, hemorrhage/contusion, collapse, and infectious/neoplastic processes. Assessment & Plan - Diagnosis (1) Metabolic encephalopathy Is this a current diagnosis for this admission?: Yes Plan: improved somewhat (2) Respiratory failure with hypoxia and hypercapnia Qualifiers: Chronicity: acute Qualified Code(s): J96.01 - Acute respiratory failure with hypoxia; J96.02 - Acute respiratory failure with hypercapnia Is this a current diagnosis for this admission?: Yes Plan: We will reintubate in order to lavage and relieve lung atelectasis (3) Septic shock Is this a current diagnosis for this admission?: No (4) Acute kidney injury Is this a current diagnosis for this admission?: Yes Plan: requiring HD (5) DIC (disseminated intravascular coagulation) Is this a current diagnosis for this admission?: Yes Plan: as per hematology (6) Thrombocytopenia Is this a current diagnosis for this admission?: Yes Plan: chronic bone marrow toxicity (7) Chronic obstructive pulmonary disease (COPD) Qualifiers: COPD type: unspecified COPD Qualified Code(s): J44.9 - Chronic obstructive pulmonary disease, unspecified Is this a current diagnosis for this admission?: Yes Plan: Continue current bronchodilator therapy - Time Total Critical Time (Minutes): 55
[2018-11-01 12:45] LABS: ABSOLUTE BASOPHILS # (AUTO) 0.1 10^3/uL (0.0-0.2); ABSOLUTE EOSINOPHILS # (AUTO) 0.5 10^3/uL (0.0-0.6); ABSOLUTE LYMPHOCYTES (AUTO) 1.6 10^3/uL (0.5-4.7); ABSOLUTE MONOCYTES (AUTO) 1.1 10^3/uL (0.1-1.4); ABSOLUTE NEUT (AUTO) 9.3 10^3/uL (1.7-8.2); BASOPHILS % (AUTO) 0.9 % (0-2); EOSINOPHILS % (AUTO) 3.6 % (0-6); HEMATOCRIT 29.4 % (36.0-47.0); HEMOGLOBIN 9.6 g/dL (12.0-15.5); LYMPHOCYTES % (AUTO) 12.7 % (13-45); MEAN CORPUSCULAR HEMOGLOBIN 31.7 pg (27.0-33.4); MEAN CORPUSCULAR HGB CONC 32.6 g/dL (32.0-36.0); MEAN CORPUSCULAR VOLUME 97 fl (80-97); MONOCYTES % (AUTO) 8.9 % (3-13); RED BLOOD COUNT 3.02 10^6/uL (3.72-5.28); RED CELL DISTRIBUTION WIDTH 26.3 % (11.5-14.0); SEGMENTED NEUTROPHILS % (AUTO) 73.9 % (42-78); TOTAL CELLS COUNTED % (AUTO) 100 %; WHITE BLOOD COUNT 12.6 10^3/uL (4.0-10.5)
[2018-11-01 12:57] LABS: ALANINE AMINOTRANSFERASE 19 U/L (9-52); ALBUMIN 3.2 g/dL (3.5-5.0); ALKALINE PHOSPHATASE 102 U/L (38-126); ANION GAP 9 (5-19); ASPARTATE AMINO TRANSFERASE 30 U/L (14-36); BILIRUBIN,DIRECT 1.9 mg/dL (0.0-0.4); BILIRUBIN,TOTAL 2.5 mg/dL (0.2-1.3); BLOOD UREA NITROGEN 17 mg/dL (7-20); CALCIUM 11.1 mg/dL (8.4-10.2); CARBON DIOXIDE 33 mmol/L (22-30); CHLORIDE 108 mmol/L (98-107); GLUCOSE 104 mg/dL (75-110); POTASSIUM 3.1 mmol/L (3.6-5.0)
[2018-11-01 13:12] LABS: PLATELET COUNT 66 10^3/uL (150-450)
[2018-11-01 13:19] LABS: ANISOCYTOSIS 3+; OVALOCYTES SLIGHT; PAPPENHEIMER BODIES PRESENT; PLATELET LARGE PRESENT; POIKILOCYTOSIS 1+; POLYCHROMASIA 1+; TARGET CELLS 2+; TEAR DROP CELLS 1+
[2018-11-01 13:21] LABS: PLATELET COMMENT DECREASED
--- NOTE | 2018-11-01 15:32 | PDOC PROGRESS REPORT ---
Subjective Progress Note for:: 11/01/18 Subjective:: When I entered the room the patient was still on BiPAP so I asked the nurse if we can put her on nasal cannula and and see if she will tolerated. So far while I was in the room she was saturating 100% with oxygen via nasal cannula. She was also asked during some incomprehensible words for the most part which I have never seen her do for the last couple weeks. She answers some but not all questions. She seems to be still confused. She continues to make good amount of urine output. Reason For Visit: SEPSIS, UTI, AMS, ACUTE KIDNEY INJURY, DELIRIUM Physical Exam Vital Signs: Temp Pulse Resp BP Pulse Ox 98.4 F 98 21 H 149/97 H 100 11/01/18 12:02 11/01/18 13:56 11/01/18 13:56 11/01/18 12:02 11/01/18 13:56 Intake & Output 10/31/18 11/01/18 11/02/18 06:59 06:59 06:59 Intake Total 1848 1929 Output Total 2595 2730 655 Balance -747 -801 -655 Weight 85.7 kg 84 kg Exam: General appearance: PRESENT: no acute distress, cooperative, fairly-developed, fairly nourished Head exam: PRESENT: atraumatic, normocephalic Eye exam: PRESENT: conjunctiva pale, PERRLA. ABSENT: scleral icterus Neck exam: ABSENT: JVD Respiratory exam: PRESENT: Diminished breath sounds. ABSENT: crackles, rales, rhonchi, unlabored, wheezes Cardiovascular exam: PRESENT: Regular rate rhythm -+S1, +S2. ABSENT: diastolic murmur, systolic murmur GI/Abdominal exam: PRESENT: normal bowel sounds, soft. ABSENT: guarding, mass, tenderness Extremities exam: ABSENT: No edema on upper extremities, almost no edema on bilateral lower extremities but continues to have edema on her bilateral hips and buttocks Neurological exam: PRESENT: alert, awake, oriented to person, she does not know where she is but she knows her birthdate. Skin exam: PRESENT: dry, warm, Cardiovascular exam: PRESENT: +S1, +S2, systolic murmur GI/Abdominal exam: PRESENT: normal bowel sounds, soft. ABSENT: organomegaly, tenderness Results Laboratory Results: 11/01/18 12:22 11/01/18 12:22 11/01/18 11/01/18 11/01/18 05:51 12:22 12:22 WBC 12.6 H RBC 3.02 L Hgb 9.6 L Hct 29.4 L MCV 97 MCH 31.7 MCHC 32.6 RDW 26.3 H Plt Count 66 L Seg Neutrophils % 73.9 Lymphocytes % 12.7 L Monocytes % 8.9 Eosinophils % 3.6 Basophils % 0.9 Absolute Neutrophils 9.3 H Absolute Lymphocytes 1.6 Absolute Monocytes 1.1 Absolute Eosinophils 0.5 Absolute Basophils 0.1 Sodium Potassium Chloride Carbon Dioxide Anion Gap BUN Creatinine Est GFR ( Amer) Est GFR (Non-Af Amer) Glucose Calcium Magnesium 1.8 Total Bilirubin AST ALT Alkaline Phosphatase Total Protein Albumin PTH Intact 7.4 L 11/01/18 12:22 WBC RBC Hgb Hct MCV MCH MCHC RDW Plt Count Seg Neutrophils % Lymphocytes % Monocytes % Eosinophils % Basophils % Absolute Neutrophils Absolute Lymphocytes Absolute Monocytes Absolute Eosinophils Absolute Basophils Sodium 150.0 H Potassium 3.1 L Chloride 108 H Carbon Dioxide 33 H Anion Gap 9 BUN 17 Creatinine 2.75 H Est GFR ( Amer) 22 L Est GFR (Non-Af Amer) 18 L Glucose 104 Calcium 11.1 H Magnesium Total Bilirubin 2.5 H AST 30 ALT 19 Alkaline Phosphatase 102 Total Protein 7.0 Albumin 3.2 L PTH Intact 09/29/18 09/29/18 09/29/18 10:44 10:44 12:59 Creatine Kinase Cancelled CK-MB (CK-2) Troponin I Cancelled 0.028 NT-Pro-B Natriuret Pep 09/29/18 09/29/18 09/29/18 12:59 15:30 15:30 Creatine Kinase 77 161 H CK-MB (CK-2) 2.69 Troponin I 0.028 NT-Pro-B Natriuret Pep 09/29/18 09/29/18 09/30/18 18:59 18:59 00:59 Creatine Kinase 201 H 197 H CK-MB (CK-2) 3.45 Troponin I 0.023 NT-Pro-B Natriuret Pep 09/30/18 10/01/18 10/03/18 00:59 04:13 04:50 Creatine Kinase CK-MB (CK-2) 2.94 Troponin I 0.021 NT-Pro-B Natriuret Pep 2270 H 3170 H 10/09/18 04:50 Creatine Kinase CK-MB (CK-2) Troponin I NT-Pro-B Natriuret Pep 630 Impressions: Head CT 10/03/18 00:00 IMPRESSION: CHRONIC CHANGES OF ATROPHY AND MICROVASCULAR ISCHEMIA. NO ACUTE PROCESS. EVIDENCE OF ACUTE STROKE: NO. KUB X-Ray 10/05/18 00:00 IMPRESSION: Nasogastric tube tip and side port in the stomach Abdomen/Pelvis CT 10/23/18 00:00 IMPRESSION: Marked right pleural effusion and compressive atelectasis or obstructive atelectasis of the right lung. Large left pleural effusion. Generalized ascites. Chest CT 10/23/18 00:00 IMPRESSION: Marked right pleural effusion and compressive atelectasis or obstructive atelectasis of the right lung. Large left pleural effusion. Generalized ascites. Chest Ultrasound 10/25/18 00:08 IMPRESSION: See above. Paracentesis Ultrasound 10/25/18 12:53 IMPRESSION: Successful ultrasound-guided paracentesis Chest X-Ray 10/28/18 06:00 IMPRESSION: Interval extubation. Assessment & Plan - Diagnosis (1) Acute kidney injury Is this a current diagnosis for this admission?: Yes Plan: Secondary to ATN due to septic shock. Urine output continues to be good consistent with diuretic phase of ATN. We will hold any further dialysis treatment at this time. Continue to monitor kidney function and electrolytes. Discontinue Lasix drip at this point. I do not think she needs Lasix at this point. I think we need to hold Lasix since the patient is diuresing well. He had to make sure that her intake and output balance is appropriate. (2) Acute tubular necrosis Is this a current diagnosis for this admission?: Yes (3) Hypokalemia Is this a current diagnosis for this admission?: Yes Plan: Replace as necessary. (4) Hypernatremia Is this a current diagnosis for this admission?: Yes Plan: Likely due to Lasix drip in the face of improved urine output. Increase water flushes through NG tube at 200 mL every 4 hours. (5) Hypercalcemia Is this a current diagnosis for this admission?: Yes Plan: Likely secondary to intravascular depletion and Lasix. Patient needs some water hydration. (6) Sepsis Qualifiers: Sepsis type: sepsis due to unspecified organism Qualified Code(s): A41.9 - Sepsis, unspecified organism Is this a current diagnosis for this admission?: Yes (7) Escherichia coli urinary tract infection Is this a current diagnosis for this admission?: Yes (8) Metabolic encephalopathy Is this a current diagnosis for this admission?: Yes Plan: Multifactorial due to septic shock, infection, and alcohol withdrawal. Patient is a bit more awake and alert and answering incomprehensible words at times with some response to questions. (9) Respiratory failure with hypoxia and hypercapnia Qualifiers: Chronicity: acute Qualified Code(s): J96.01 - Acute respiratory failure with hypoxia; J96.02 - Acute respiratory failure with hypercapnia Is this a current diagnosis for this admission?: Yes (10) Hypoalbuminemia Is this a current diagnosis for this admission?: Yes Plan: Improved. (11) Nosocomial pneumonia Is this a current diagnosis for this admission?: Yes (12) Alcoholism Is this a current diagnosis for this admission?: Yes (13) Anemia Qualifiers: Anemia type: other cause Other causes of anemia: chronic disease, other Qualified Code(s): D63.8 - Anemia in other chronic diseases classified elsewhere Is this a current diagnosis for this admission?: Yes Plan: Multifactorial causes including sepsis and patient is currently has the DIC being followed by her ham pumper. Also strong consideration for possible liver disease. (14) DIC (disseminated intravascular coagulation) Is this a current diagnosis for this admission?: Yes Plan: Hematology following. Considering end-stage liver disease. (15) Hyperammonemia Is this a current diagnosis for this admission?: Yes Plan: The consensus in this patient may have advanced liver disease that is causing her coagulopathy and encephalopathy with elevated ammonia level. Dr. Higuera and Dr. Klein is been discussing this with the family. - Notes Notes: Discussed plan with the nurse. - Time Time with patient: 15-25 minutes
[2018-11-01] MEDS: POTASSI CL 20 MEQ/50 ML RIDER 20 MEQ/50 ML RTUPB IV SCH ×2 (16:12→17:41)
--- NOTE | 2018-11-01 18:46 | PDOC PROGRESS REPORT ---
Subjective Progress Note for:: 11/01/18 Subjective:: Patient was seen by the bedside, she is presently of BiPAP presently on oxygen nasal cannula, she is still confused, she has hypercalcemia which is non-PTH mediated suggesting secondary cause, we need to rule out neoplasm, paraproteinemias or solid tumors Reason For Visit: SEPSIS, UTI, AMS, ACUTE KIDNEY INJURY, DELIRIUM Physical Exam Vital Signs: Temp Pulse Resp BP Pulse Ox 99.0 F 103 H 20 147/94 H 100 11/01/18 16:00 11/01/18 16:00 11/01/18 16:00 11/01/18 16:00 11/01/18 16:00 Intake & Output 10/31/18 11/01/18 11/02/18 06:59 06:59 06:59 Intake Total 1848 1929 577 Output Total 7052 2730 1610 [facility] -747 -801 -1033 Weight 85.7 kg 84 kg General appearance: PRESENT: no acute distress Eye exam: PRESENT: PERRLA Respiratory exam: PRESENT: rhonchi Cardiovascular exam: PRESENT: +S1, +S2 GI/Abdominal exam: PRESENT: soft Neurological exam: PRESENT: other - confused Results Laboratory Results: 11/01/18 12:22 11/01/18 12:22 11/01/18 11/01/18 11/01/18 05:51 12:22 12:22 WBC 12.6 H RBC 3.02 L Hgb 9.6 L Hct 29.4 L MCV 97 MCH 31.7 MCHC 32.6 RDW 26.3 H Plt Count 66 L Seg Neutrophils % 73.9 Lymphocytes % 12.7 L Monocytes % 8.9 Eosinophils % 3.6 Basophils % 0.9 Absolute Neutrophils 9.3 H Absolute Lymphocytes 1.6 Absolute Monocytes 1.1 Absolute Eosinophils 0.5 Absolute Basophils 0.1 Sodium Potassium Chloride Carbon Dioxide Anion Gap BUN Creatinine Est GFR ( Amer) Est GFR (Non-Af Amer) Glucose Calcium Magnesium 1.8 Total Bilirubin AST ALT Alkaline Phosphatase Total Protein Albumin PTH Intact 7.4 L 11/01/18 12:22 WBC RBC Hgb Hct MCV MCH MCHC RDW Plt Count Seg Neutrophils % Lymphocytes % Monocytes % Eosinophils % Basophils % Absolute Neutrophils Absolute Lymphocytes Absolute Monocytes Absolute Eosinophils Absolute Basophils Sodium 150.0 H Potassium 3.1 L Chloride 108 H Carbon Dioxide 33 H Anion Gap 9 BUN 17 Creatinine 2.75 H Est GFR ( Amer) 22 L Est GFR (Non-Af Amer) 18 L Glucose 104 Calcium 11.1 H Magnesium Total Bilirubin 2.5 H AST 30 ALT 19 Alkaline Phosphatase 102 Total Protein 7.0 Albumin 3.2 L PTH Intact 09/29/18 09/29/18 09/29/18 10:44 10:44 12:59 Creatine Kinase Cancelled CK-MB (CK-2) Troponin I Cancelled 0.028 NT-Pro-B Natriuret Pep 09/29/18 09/29/18 09/29/18 12:59 15:30 15:30 Creatine Kinase 77 161 H CK-MB (CK-2) 2.69 Troponin I 0.028 NT-Pro-B Natriuret Pep 09/29/18 09/29/18 09/30/18 18:59 18:59 00:59 Creatine Kinase 201 H 197 H CK-MB (CK-2) 3.45 Troponin I 0.023 NT-Pro-B Natriuret Pep 09/30/18 10/01/18 10/03/18 00:59 04:13 04:50 Creatine Kinase CK-MB (CK-2) 2.94 Troponin I 0.021 NT-Pro-B Natriuret Pep 2270 H 3170 H 10/09/18 04:50 Creatine Kinase CK-MB (CK-2) Troponin I NT-Pro-B Natriuret Pep 630 Impressions: Head CT 10/03/18 00:00 IMPRESSION: CHRONIC CHANGES OF ATROPHY AND MICROVASCULAR ISCHEMIA. NO ACUTE PROCESS. EVIDENCE OF ACUTE STROKE: NO. KUB X-Ray 10/05/18 00:00 IMPRESSION: Nasogastric tube tip and side port in the stomach Abdomen/Pelvis CT 10/23/18 00:00 IMPRESSION: Marked right pleural effusion and compressive atelectasis or obstructive atelectasis of the right lung. Large left pleural effusion. Generalized ascites. Chest CT 10/23/18 00:00 IMPRESSION: Marked right pleural effusion and compressive atelectasis or obstructive atelectasis of the right lung. Large left pleural effusion. Generalized ascites. Chest Ultrasound 10/25/18 00:08 IMPRESSION: See above. Paracentesis Ultrasound 10/25/18 12:53 IMPRESSION: Successful ultrasound-guided paracentesis Chest X-Ray 10/28/18 06:00 IMPRESSION: Interval extubation. Assessment & Plan - Diagnosis (1) Septic shock Is this a current diagnosis for this admission?: Yes (2) UTI (urinary tract infection) Qualifiers: Urinary tract infection type: site unspecified Hematuria presence: with hematuria Qualified Code(s): N39.0 - Urinary tract infection, site not specified; R31.9 - Hematuria, unspecified Is this a current diagnosis for this admission?: Yes (3) Hypokalemia Is this a current diagnosis for this admission?: Yes (4) Hypomagnesemia Is this a current diagnosis for this admission?: Yes (5) Alcohol abuse Is this a current diagnosis for this admission?: Yes (6) Metabolic encephalopathy Is this a current diagnosis for this admission?: Yes (7) Hyperammonemia Is this a current diagnosis for this admission?: Yes (8) Alcohol withdrawal Qualifiers: Complication of substance-induced condition: with delirium Qualified Code(s): F10.231 - Alcohol dependence with withdrawal delirium Is this a current diagnosis for this admission?: Yes (9) Respiratory failure with hypoxia and hypercapnia Qualifiers: Chronicity: acute Qualified Code(s): J96.01 - Acute respiratory failure with hypoxia; J96.02 - Acute respiratory failure with hypercapnia Is this a current diagnosis for this admission?: Yes (10) Nosocomial pneumonia Is this a current diagnosis for this admission?: Yes (11) Hypotension Qualifiers: Hypotension type: unspecified hypotension type Qualified Code(s): I95.9 - Hypotension, unspecified Is this a current diagnosis for this admission?: Yes (12) Gastroparesis Is this a current diagnosis for this admission?: Yes (13) Acute kidney injury Is this a current diagnosis for this admission?: Yes (14) DIC (disseminated intravascular coagulation) Is this a current diagnosis for this admission?: Yes (15) Hypercalcemia Is this a current diagnosis for this admission?: Yes Plan: She has non-PTH mediated hypercalcemia need to rule out neoplasm as a potential etiology
[2018-11-02] MEDS: INSULIN LISPRO 100 UNIT/ML 3 ML VIAL SUBCUT SCH ×4 (01:27→17:38)
[2018-11-02] MEDS: IPRATROPIUM/ALBUTEROL 0.5-2.5 MG/3 ML AMPUL NEB SCH ×4 (02:14→21:33)
[2018-11-02] MEDS: LACTOBACILLUS ACIDOPHILUS 250 MG TAB NG SCH ×2 (05:38→17:38)
[2018-11-02] MEDS: ACETYLCYSTEINE 20% SOLN 800 MG/4 ML VIAL.NEB NEB SCH ×2 (07:43→21:33)
[2018-11-02] MEDS: AMINO AC/PROTEIN HYDR/WHEY PRO 11 GM/45 ML PKT NG SCH ×3 (10:01→17:38)
[2018-11-02] MEDS: NYSTATIN TOPICAL POWDER 15 GM TP SCH ×2 (10:01→17:38)
[2018-11-02] MEDS: MIDODRINE HCL 5 MG TABLET NG SCH (10:01)
[2018-11-02] MEDS ORDERED: DILTIAZEM HCL/D5W 125 MG/125 ML RTUINJ IV ONE (15:08)
[2018-11-02] MEDS: DILTIAZEM HCL/D5W 125 MG/125 ML RTUINJ IV PRN (15:10)
[2018-11-02 16:21] LABS: HEMATOCRIT 30.3 % (36.0-47.0); HEMOGLOBIN 9.7 g/dL (12.0-15.5); MEAN CORPUSCULAR HEMOGLOBIN 31.2 pg (27.0-33.4); MEAN CORPUSCULAR VOLUME 98 fl (80-97); RED CELL DISTRIBUTION WIDTH 25.8 % (11.5-14.0); WHITE BLOOD COUNT 14.5 10^3/uL (4.0-10.5)
[2018-11-02 16:25] LABS: ALANINE AMINOTRANSFERASE 23 U/L (9-52); ALBUMIN 3.1 g/dL (3.5-5.0); ALKALINE PHOSPHATASE 99 U/L (38-126); ANION GAP 9 (5-19); ASPARTATE AMINO TRANSFERASE 30 U/L (14-36); BILIRUBIN,DIRECT 2.3 mg/dL (0.0-0.4); BLOOD UREA NITROGEN 25 mg/dL (7-20); CALCIUM 10.5 mg/dL (8.4-10.2); CARBON DIOXIDE 36 mmol/L (22-30); CHLORIDE 104 mmol/L (98-107); GLUCOSE 118 mg/dL (75-110); POTASSIUM 3.2 mmol/L (3.6-5.0); SODIUM 148.7 mmol/L (137-145)
[2018-11-02 16:42] LABS: ABSOLUTE LYMPHOCYTES# (MANUAL) 0.6 10^3/uL (0.5-4.7); ABSOLUTE NEUTROPHILS# (MANUAL) 12.3 10^3/uL (1.7-8.2); BASOPHILS % (MANUAL) 1 % (0-2); EOSINOPHILS % (MANUAL) 3 % (0-6); LYMPHOCYTES % (MANUAL) 4 % (13-45); MONOCYTES % (MANUAL) 7 % (3-13); SEGMENTED NEUTROPHILS % (MAN) 85 % (42-78); TOTAL CELLS COUNTED 100
[2018-11-02 16:43] LABS: ANISOCYTOSIS 3+; PLATELET COMMENT DECREASED; POIKILOCYTOSIS 1+; TARGET CELLS SLIGHT; TOXIC GRANULATION SLIGHT
[2018-11-02 16:44] LABS: PLATELET COUNT 71 10^3/uL (150-450)
--- NOTE | 2018-11-02 18:23 | PDOC PROGRESS REPORT ---
Subjective Progress Note for:: 11/02/18 Subjective:: Patient seen by the bedside, she developed paroxysmal atrial fibrillation with RVR,she needs to have speech evaluation to determine when to start regular oral diet Reason For Visit: SEPSIS, UTI, AMS, ACUTE KIDNEY INJURY, DELIRIUM Physical Exam Vital Signs: Temp Pulse Resp BP Pulse Ox 101.3 F H 104 H 16 170/148 H 100 11/02/18 16:00 11/02/18 16:00 11/02/18 16:00 11/02/18 16:00 11/02/18 16:00 Intake & Output 11/01/18 11/02/18 11/03/18 06:59 06:59 06:59 Intake Total 1929 897 21 Output Total 2230 5595 1371 [place] -756 -5956 -2578 Weight 84 kg 79.7 kg General appearance: PRESENT: no acute distress Eye exam: PRESENT: PERRLA Respiratory exam: PRESENT: rhonchi Cardiovascular exam: PRESENT: +S1, +S2 GI/Abdominal exam: PRESENT: soft Neurological exam: PRESENT: alert Results Laboratory Results: 11/02/18 15:45 11/02/18 15:45 11/01/18 11/01/18 11/02/18 21:36 21:36 03:44 WBC RBC Hgb Hct MCV MCH MCHC RDW Plt Count Seg Neutrophils % Lymphocytes % Monocytes % Eosinophils % Basophils % Absolute Neutrophils Absolute Lymphocytes Absolute Monocytes Absolute Eosinophils Absolute Basophils Sodium Potassium 3.3 L Chloride Carbon Dioxide Anion Gap BUN Creatinine Est GFR ( Amer) Est GFR (Non-Af Amer) Glucose Calcium Magnesium 1.6 Total Bilirubin AST ALT Alkaline Phosphatase Total Protein Cancelled Albumin Cancelled 11/02/18 11/02/18 15:45 15:45 WBC 14.5 H RBC 3.10 L Hgb 9.7 L Hct 30.3 L MCV 98 H MCH 31.2 MCHC 32.0 RDW 25.8 H Plt Count 71 L Seg Neutrophils % Not Reportable Lymphocytes % Not Reportable Monocytes % Not Reportable Eosinophils % Not Reportable Basophils % Not Reportable Absolute Neutrophils Not Reportable Absolute Lymphocytes Not Reportable Absolute Monocytes Not Reportable Absolute Eosinophils Not Reportable Absolute Basophils Not Reportable Sodium 148.7 H Potassium 3.2 L Chloride 104 Carbon Dioxide 36 H Anion Gap 9 BUN 25 H Creatinine 2.70 H Est GFR ( Amer) 22 L Est GFR (Non-Af Amer) 18 L Glucose 118 H Calcium 10.5 H Magnesium Total Bilirubin 3.0 H AST 30 ALT 23 Alkaline Phosphatase 99 Total Protein 7.0 Albumin 3.1 L 10/05/18 11:30 Bronchial Washings Fungal Smear - Final 10/05/18 11:30 Bronchial Washings Fungal Smear - Final 10/05/18 11:30 Bronchial Washings Fungal Culture - Final 10/05/18 11:30 Bronchial Washings Fungal Culture - Final 09/29/18 09/29/18 09/29/18 10:44 10:44 12:59 Creatine Kinase Cancelled CK-MB (CK-2) Troponin I Cancelled 0.028 NT-Pro-B Natriuret Pep 09/29/18 09/29/18 09/29/18 12:59 15:30 15:30 Creatine Kinase 77 161 H CK-MB (CK-2) 2.69 Troponin I 0.028 NT-Pro-B Natriuret Pep 09/29/18 09/29/18 09/30/18 18:59 18:59 00:59 Creatine Kinase 201 H 197 H CK-MB (CK-2) 3.45 Troponin I 0.023 NT-Pro-B Natriuret Pep 09/30/18 10/01/18 10/03/18 00:59 04:13 04:50 Creatine Kinase CK-MB (CK-2) 2.94 Troponin I 0.021 NT-Pro-B Natriuret Pep 2270 H 3170 H 10/09/18 04:50 Creatine Kinase CK-MB (CK-2) Troponin I NT-Pro-B Natriuret Pep 630 Impressions: Head CT 10/03/18 00:00 IMPRESSION: CHRONIC CHANGES OF ATROPHY AND MICROVASCULAR ISCHEMIA. NO ACUTE PROCESS. EVIDENCE OF ACUTE STROKE: NO. KUB X-Ray 10/05/18 00:00 IMPRESSION: Nasogastric tube tip and side port in the stomach Abdomen/Pelvis CT 10/23/18 00:00 IMPRESSION: Marked right pleural effusion and compressive atelectasis or obstructive atelectasis of the right lung. Large left pleural effusion. Generalized ascites. Chest CT 10/23/18 00:00 IMPRESSION: Marked right pleural effusion and compressive atelectasis or obstructive atelectasis of the right lung. Large left pleural effusion. Generalized ascites. Chest Ultrasound 10/25/18 00:08 IMPRESSION: See above. Paracentesis Ultrasound 10/25/18 12:53 IMPRESSION: Successful ultrasound-guided paracentesis Assessment & Plan - Diagnosis (1) Septic shock Is this a current diagnosis for this admission?: Yes (2) UTI (urinary tract infection) Qualifiers: Urinary tract infection type: site unspecified Hematuria presence: with hematuria Qualified Code(s): N39.0 - Urinary tract infection, site not specified; R31.9 - Hematuria, unspecified Is this a current diagnosis for this admission?: Yes (3) Hypokalemia Is this a current diagnosis for this admission?: Yes (4) Hypomagnesemia Is this a current diagnosis for this admission?: Yes (5) Alcohol abuse Is this a current diagnosis for this admission?: Yes (6) Metabolic encephalopathy Is this a current diagnosis for this admission?: Yes (7) Hyperammonemia Is this a current diagnosis for this admission?: Yes (8) Alcohol withdrawal Qualifiers: Complication of substance-induced condition: with delirium Qualified Code(s): F10.231 - Alcohol dependence with withdrawal delirium Is this a current diagnosis for this admission?: Yes (9) Respiratory failure with hypoxia and hypercapnia Qualifiers: Chronicity: acute Qualified Code(s): J96.01 - Acute respiratory failure with hypoxia; J96.02 - Acute respiratory failure with hypercapnia Is this a current diagnosis for this admission?: Yes (10) Nosocomial pneumonia Is this a current diagnosis for this admission?: Yes (11) Hypotension Qualifiers: Hypotension type: unspecified hypotension type Qualified Code(s): I95.9 - Hypotension, unspecified Is this a current diagnosis for this admission?: Yes (12) Gastroparesis Is this a current diagnosis for this admission?: Yes (13) Acute kidney injury Is this a current diagnosis for this admission?: Yes (14) DIC (disseminated intravascular coagulation) Is this a current diagnosis for this admission?: Yes (15) Hypercalcemia Is this a current diagnosis for this admission?: Yes Plan: She has non-PTH mediated hypercalcemia need to rule out neoplasm as a potential etiology (16) Paroxysmal atrial fibrillation with RVR Is this a current diagnosis for this admission?: Yes Plan: start cardizem infusion
--- NOTE | 2018-11-02 18:28 | RADIOLOGY REPORT (SQ) ---
EXAM DESCRIPTION: CHEST SINGLE VIEW COMPLETED DATE/TIME: 11/02/2018 6:08 pm REASON FOR STUDY: confirm ng tube placement COMPARISON: 10/28/2018. EXAM PARAMETERS: NUMBER OF VIEWS: One view. TECHNIQUE: Single frontal radiographic view of the chest acquired. RADIATION DOSE: NA LIMITATIONS: None. FINDINGS: LUNGS AND PLEURA: Linear density in the right lung apex upper slightly less prominent. Ar e patchy basilar densities and pleural effusions, slightly improved. MEDIASTINUM AND HILAR STRUCTURES: No masses. Contour normal. HEART AND VASCULAR STRUCTURES: Heart normal in size. Normal vasculature. BONES: No acute findings. HARDWARE: Nasogastric tube with the tip in the stomach. Stable appearance of the central line. OTHER: No other significant finding. IMPRESSION: 1. NASOGASTRIC TUBE WITH THE TIP IN STOMACH. 2. GENERALLY IMPROVED APPEARANCE OF THE CHEST SINCE THE PRIOR STUDY. TECHNICAL DOCUMENTATION: JOB ID: [id number] [employer]- All Rights Reserved Reading location - IP/workstation name: [email or web address]
--- NOTE | 2018-11-02 18:51 | EKG REPORT ---
SEVERITY:- ABNORMAL ECG - SINUS TACHYCARDIA. LOW VOLTAGE THROUGHOUT BORDERLINE T ABNORMALITIES, INFERIOR LEADS : Confirmed by: Jhonatan French MD 02-Nov-2018 18:50:09
[2018-11-03] MEDS: IPRATROPIUM/ALBUTEROL 0.5-2.5 MG/3 ML AMPUL NEB SCH ×4 (02:32→20:09)
[2018-11-03] MEDS: LACTOBACILLUS ACIDOPHILUS 250 MG TAB NG SCH ×2 (05:58→18:18)
[2018-11-03] MEDS: INSULIN LISPRO 100 UNIT/ML 3 ML VIAL SUBCUT SCH ×4 (06:19→18:11)
[2018-11-03] MEDS: ACETYLCYSTEINE 20% SOLN 800 MG/4 ML VIAL.NEB NEB SCH ×2 (07:51→20:09)
[2018-11-03] MEDS: DILTIAZEM HCL/D5W 125 MG/125 ML RTUINJ IV PRN (09:45)
[2018-11-03] MEDS: AMINO AC/PROTEIN HYDR/WHEY PRO 11 GM/45 ML PKT NG SCH ×3 (09:48→18:18)
[2018-11-03] MEDS: NYSTATIN TOPICAL POWDER 15 GM TP SCH ×2 (09:48→18:18)
[2018-11-03] MEDS ORDERED: ADENOSINE INJ/PF 6 MG/2 ML SDV IV ONE ×2 (10:54→14:52)
[2018-11-03] MEDS ORDERED: AMIODARONE HCL 150 MG in DEXTROSE 5%-WATER 100 ML IV ONE (11:30)
[2018-11-03] MEDS ORDERED: DEXTROSE 5%-WATER 500 ML with AMIODARONE HCL 900 MG IV PRN ×2 (11:30)
[2018-11-03] MEDS ORDERED: DEXTROSE 5%-1/2 NORMAL SALINE 1,000 ML IV PRN (11:56)
[2018-11-03] MEDS ORDERED: DEXTROSE 5%-1/2 NORMAL SALINE 1,000 ML IV ONE (11:57)
--- NOTE | 2018-11-03 12:07 | PDOC PROGRESS REPORT ---
Subjective Progress Note for:: 11/03/18 Subjective:: Patient was transferred to [facility] yesterday. She developed paroxysmal atrial fibrillation yesterday and was started on Cardizem drip. This morning the patient had sustained runs of V. tach and so the rapid response team was called. The diltiazem has been discontinued and patient will be started on amiodarone drip. She remains to be on nonrebreather mask. She is a still confused. She continues to make good amount of urine and in fact has been negative fluid ba tash for the last 3 days. Her urine output is anywhere between 2-3 L daily. She is off any diuretics. Reason For Visit: SEPSIS, UTI, AMS, ACUTE KIDNEY INJURY, DELIRIUM Physical Exam Vital Signs: Temp Pulse Resp BP Pulse Ox 99.2 F 117 H 18 119/68 90 L 11/03/18 07:15 11/03/18 08:12 11/03/18 08:12 11/03/18 07:15 11/03/18 08:12 Intake & Output 11/02/18 11/03/18 11/04/18 06:59 06:59 06:59 Intake Total 897 721 81 Output Total 3185 2250 Balance -2288 -1529 81 Weight 79.7 kg 80.5 kg Exam: General appearance: PRESENT: On nonrebreather mask, awake but confused Head exam: PRESENT: atraumatic, normocephalic Eye exam: PRESENT: conjunctiva pale, PERRLA. ABSENT: scleral icterus Neck exam: ABSENT: JVD Respiratory exam: PRESENT: Diminished breath sounds. ABSENT: crackles, rales, rhonchi, unlabored, wheezes Cardiovascular exam: PRESENT: Tachycardic, regular rate rhythm -+S1, +S2. ABSENT: diastolic murmur, systolic murmur GI/Abdominal exam: PRESENT: normal bowel sounds, soft. ABSENT: guarding, mass, tenderness Extremities exam: No upper extremity extremities or leg edema edema however she still has bilateral thighs and buttocks edema and dependent portions. Neurological exam: PRESENT: alert, awake, answers very few questions and still confused Skin exam: PRESENT: dry, warm, fair skin turgor Cardiovascular exam: PRESENT: +S1, +S2, systolic murmur GI/Abdominal exam: PRESENT: normal bowel sounds, soft. ABSENT: organomegaly, tenderness Results Laboratory Results: 11/02/18 15:45 11/02/18 15:45 11/02/18 11/02/18 15:45 15:45 WBC 14.5 H RBC 3.10 L Hgb 9.7 L Hct 30.3 L MCV 98 H MCH 31.2 MCHC 32.0 RDW 25.8 H Plt Count 71 L Seg Neutrophils % Not Reportable Lymphocytes % Not Reportable Monocytes % Not Reportable Eosinophils % Not Reportable Basophils % Not Reportable Absolute Neutrophils Not Reportable Absolute Lymphocytes Not Reportable Absolute Monocytes Not Reportable Absolute Eosinophils Not Reportable Absolute Basophils Not Reportable Sodium 148.7 H Potassium 3.2 L Chloride 104 Carbon Dioxide 36 H Anion Gap 9 BUN 25 H Creatinine 2.70 H Est GFR ( Amer) 22 L Est GFR (Non-Af Amer) 18 L Glucose 118 H Calcium 10.5 H Total Bilirubin 3.0 H AST 30 ALT 23 Alkaline Phosphatase 99 Total Protein 7.0 Albumin 3.1 L 10/05/18 11:30 Bronchial Washings Fungal Smear - Final 10/05/18 11:30 Bronchial Washings Fungal Smear - Final 10/05/18 11:30 Bronchial Washings Fungal Culture - Final 10/05/18 11:30 Bronchial Washings Fungal Culture - Final 09/29/18 09/29/18 09/29/18 10:44 10:44 12:59 Creatine Kinase Cancelled CK-MB (CK-2) Troponin I Cancelled 0.028 NT-Pro-B Natriuret Pep 09/29/18 09/29/18 09/29/18 12:59 15:30 15:30 Creatine Kinase 77 161 H CK-MB (CK-2) 2.69 Troponin I 0.028 NT-Pro-B Natriuret Pep 09/29/18 09/29/18 09/30/18 18:59 18:59 00:59 Creatine Kinase 201 H 197 H CK-MB (CK-2) 3.45 Troponin I 0.023 NT-Pro-B Natriuret Pep 09/30/18 10/01/18 10/03/18 00:59 04:13 04:50 Creatine Kinase CK-MB (CK-2) 2.94 Troponin I 0.021 NT-Pro-B Natriuret Pep 2270 H 3170 H 10/09/18 04:50 Creatine Kinase CK-MB (CK-2) Troponin I NT-Pro-B Natriuret Pep 630 Impressions: Head CT 10/03/18 00:00 IMPRESSION: CHRONIC CHANGES OF ATROPHY AND MICROVASCULAR ISCHEMIA. NO ACUTE PROCESS. EVIDENCE OF ACUTE STROKE: NO. KUB X-Ray 10/05/18 00:00 IMPRESSION: Nasogastric tube tip and side port in the stomach Abdomen/Pelvis CT 10/23/18 00:00 IMPRESSION: Marked right pleural effusion and compressive atelectasis or obstructive atelectasis of the right lung. Large left pleural effusion. Generalized ascites. Chest CT 10/23/18 00:00 IMPRESSION: Marked right pleural effusion and compressive atelectasis or obstructive atelectasis of the right lung. Large left pleural effusion. Generalized ascites. Chest Ultrasound 10/25/18 00:08 IMPRESSION: See above. Paracentesis Ultrasound 10/25/18 12:53 IMPRESSION: Successful ultrasound-guided paracentesis Chest X-Ray 11/02/18 17:44 IMPRESSION: 1. NASOGASTRIC TUBE WITH THE TIP IN STOMACH. 2. GENERALLY IMPROVED APPEARANCE OF THE CHEST SINCE THE PRIOR STUDY. Assessment & Plan - Diagnosis (1) Acute kidney injury Is this a current diagnosis for this admission?: Yes Plan: Secondary to ATN due to septic shock. Urine output continues to be good consist ent with diuretic phase of ATN. We will hold any further dialysis treatment at this time. Continue to monitor kidney function and electrolytes. No need of diuretics. We need to maintain her fluid balance to neutral. I think she is getting intravascularly dry. We will give her minimal fluids today. (2) Acute tubular necrosis Is this a current diagnosis for this admission?: Yes (3) Hypokalemia Is this a current diagnosis for this admission?: Yes Plan: Replace as necessary. (4) Hypernatremia Is this a current diagnosis for this admission?: Yes Plan: Likely due to Lasix drip in the face of improved urine output. Increase water flushes through NG tube at 200 mL every 4 hours. I will give her a liter of D5 0.45 at 50 mL an hour. (5) Hypercalcemia Is this a current diagnosis for this admission?: Yes Plan: Likely secondary to intravascular depletion and Lasix. Patient needs some water hydration. Slightly improved. (6) Sepsis Qualifiers: Sepsis type: sepsis due to unspecified organism Qualified Code(s): A41.9 - Sepsis, unspecified organism Is this a current diagnosis for this admission?: Yes (7) Escherichia coli urinary tract infection Is this a current diagnosis for this admission?: Yes (8) Metabolic encephalopathy Is this a current diagnosis for this admission?: Yes Plan: Multifactorial due to septic shock, infection, and alcohol withdrawal. Patient is a bit more awake and alert and answering incomprehensible words at times with some response to questions. (9) Respiratory failure with hypoxia and hypercapnia Qualifiers: Chronicity: acute Qualified Code(s): J96.01 - Acute respiratory failure with hypoxia; J96.02 - Acute respiratory failure with hypercapnia Is this a current diagnosis for this admission?: Yes Plan: On nonrebreather mask. (10) Hypoalbuminemia Is this a current diagnosis for this admission?: Yes Plan: Improved. (11) Nosocomial pneumonia Is this a current diagnosis for this admission?: Yes (12) Alcoholism Is this a current diagnosis for this admission?: Yes Plan: Likely to be the cause of her possible end-stage liver disease. 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 Also strong consideration for possible liver disease. Currently improving. (14) DIC (disseminated intravascular coagulation) Is this a current diagnosis for this admission?: Yes Plan: Hematology following. Considering end-stage liver disease. (15) Hyperammonemia Is this a current diagnosis for this admission?: Yes Plan: The consensus in this patient may have advanced liver disease that is causing her coagulopathy and encephalopathy with elevated ammonia level. Dr. Higuera and Dr. Klein has discussed this with the family multiple times. - Time Time with patient: 15-25 minutes
--- NOTE | 2018-11-03 12:26 | EKG REPORT ---
SEVERITY:- DEFECTIVE ECG - SINUS TACHYCARDIA INFERIOR INFARCT, AGE INDETERMINATE NONSPECIFIC T ABNORMALITIES, ANT-LAT LEADS NONSPECIFIC ST-T CHANGES, DIFFUSE SEVERE BASELINE DISTORTION. : Confirmed by: Jhonatan French MD 03-Nov-2018 12:25:23
[2018-11-03 13:28] LABS: ALANINE AMINOTRANSFERASE 14 U/L (9-52); ALBUMIN 2.9 g/dL (3.5-5.0); ALKALINE PHOSPHATASE 103 U/L (38-126); ANION GAP 10 (5-19); ASPARTATE AMINO TRANSFERASE 31 U/L (14-36); BILIRUBIN,DIRECT 2.9 mg/dL (0.0-0.4); BILIRUBIN,TOTAL 3.6 mg/dL (0.2-1.3); BLOOD UREA NITROGEN 30 mg/dL (7-20); CALCIUM 10.4 mg/dL (8.4-10.2); CARBON DIOXIDE 35 mmol/L (22-30); CHLORIDE 104 mmol/L (98-107); GLUCOSE 122 mg/dL (75-110); PHOSPHORUS 4.8 mg/dL (2.5-4.5); SODIUM 149.3 mmol/L (137-145); TOTAL PROTEIN 6.9 g/dL (6.3-8.2)
[2018-11-03 13:33] LABS: POTASSIUM 2.7 mmol/L (3.6-5.0)
[2018-11-03] MEDS ORDERED: POTASSIUM CHLORIDE 20 MEQ/15 ML UDCUP NG ONE (14:30)
[2018-11-03] MEDS: POTASSIUM CHLORIDE 20 MEQ/50 ML RTU IV SCH ×2 (15:15→18:18)
[2018-11-03 15:26] LABS: HEMATOCRIT 33.7 % (36.0-47.0); HEMOGLOBIN 10.8 g/dL (12.0-15.5); MEAN CORPUSCULAR HEMOGLOBIN 30.9 pg (27.0-33.4); MEAN CORPUSCULAR HGB CONC 32.1 g/dL (32.0-36.0); MEAN CORPUSCULAR VOLUME 96 fl (80-97); WHITE BLOOD COUNT 18.7 10^3/uL (4.0-10.5)
[2018-11-03 15:28] LABS: PLATELET COUNT 83 10^3/uL (150-450)
[2018-11-03 15:33] LABS: ABSOLUTE LYMPHOCYTES# (MANUAL) 0.6 10^3/uL (0.5-4.7); ABSOLUTE MONOCYTES # (MANUAL) 1.1 10^3/uL (0.1-1.4); BAND NEUTROPHILS % (MANUAL) 2 % (3-5); BASOPHILS % (MANUAL) 0 % (0-2); EOSINOPHILS % (MANUAL) 0 % (0-6); LYMPHOCYTES % (MANUAL) 3 % (13-45); MONOCYTES % (MANUAL) 6 % (3-13); SEGMENTED NEUTROPHILS % (MAN) 89 % (42-78); TOTAL CELLS COUNTED 100
[2018-11-03 15:35] LABS: ANISOCYTOSIS 3+; PLATELET COMMENT DECREASED; POIKILOCYTOSIS 1+; TARGET CELLS SLIGHT; TOXIC GRANULATION SLIGHT
[2018-11-03 17:36] LABS: ALBUMIN UR 32.3 % (.); ALPHA-1-GLOBULIN URINE 0.1 % (.); ALPHA-2-GLOBULIN URINE 1.5 % (.); GAMMA GLOBULIN URINE 36.9 % (.); M-SPIKE % UR Not Observed % (Not Observ); PROTEIN TOTAL URINE 17.1 mg/dL (Not Estab.)
[2018-11-03] MEDS: MAGNESIUM SULFATE/D5W 1 GM/100 ML RTUPB IV SCH ×2 (20:50→21:49)
[2018-11-03] MEDS ORDERED: LABETALOL HCL INJ 20 MG/4 ML DISP.SYRIN IV PRN (21:35)
[2018-11-03] MEDS ORDERED: HYDRALAZINE HCL INJ/PF 20 MG/1 ML SDV IV PRN (21:48)
--- NOTE | 2018-11-03 21:54 | PDOC PROGRESS REPORT ---
Subjective Progress Note for:: 11/03/18 Subjective:: Patient seen by the bedside, she developed paroxysmal atrial fibrillation with rapid ventricular response. Reason For Visit: SEPSIS, UTI, AMS, ACUTE KIDNEY INJURY, DELIRIUM Physical Exam Vital Signs: Temp Pulse Resp BP Pulse Ox 99.0 F 106 H 20 86/52 L 100 11/03/18 19:21 11/03/18 20:09 11/03/18 20:09 11/03/18 19:21 11/03/18 20:09 Intake & Output 11/02/18 11/03/18 11/04/18 06:59 06:59 06:59 Intake Total 289 405 3997 Output Total 3185 2250 525 Balance -8983 -1528 1079 Weight 79.7 kg 80.5 kg General appearance: PRESENT: mild distress, other Mouth exam: PRESENT: dry mucosa Respiratory exam: PRESENT: rhonchi Cardiovascular exam: PRESENT: +S1, +S2 GI/Abdominal exam: PRESENT: soft Neurological exam: PRESENT: alert, CN II-XII grossly intact Results Laboratory Results: 11/03/18 14:53 11/03/18 12:45 11/03/18 11/03/18 11/03/18 12:45 12:45 13:40 WBC Cancelled Cancelled RBC Cancelled Cancelled Hgb Cancelled Cancelled Hct Cancelled Cancelled MCV Cancelled Cancelled MCH Cancelled Cancelled MCHC Cancelled Cancelled RDW Cancelled Cancelled Plt Count Cancelled Cancelled Seg Neutrophils % Cancelled Cancelled Lymphocytes % Cancelled Cancelled Monocytes % Cancelled Cancelled Eosinophils % Cancelled Cancelled Basophils % Cancelled Cancelled Absolute Neutrophils Cancelled Cancelled Absolute Lymphocytes Cancelled Cancelled Absolute Monocytes Cancelled Cancelled Absolute Eosinophils Cancelled Cancelled Absolute Basophils Cancelled Cancelled Sodium 149.3 H Potassium 2.7 L* Chloride 104 Carbon Dioxide 35 H Anion Gap 10 BUN 30 H Creatinine 2.75 H Est GFR ( Amer) 22 L Est GFR (Non-Af Amer) 18 L Glucose 122 H Calcium 10.4 H Phosphorus 4.8 H Magnesium 1.4 L Total Bilirubin 3.6 H AST 31 ALT 14 Alkaline Phosphatase 103 Total Protein 6.9 Albumin 2.9 L 11/03/18 14:53 WBC 18.7 H RBC 3.50 L Hgb 10.8 L Hct 33.7 L MCV 96 MCH 30.9 MCHC 32.1 RDW 25.0 H Plt Count 83 L Seg Neutrophils % Not Reportable Lymphocytes % Not Reportable Monocytes % Not Reportable Eosinophils % Not Reportable Basophils % Not Reportable Absolute Neutrophils Not Reportable Absolute Lymphocytes Not Reportable Absolute Monocytes Not Reportable Absolute Eosinophils Not Reportable Absolute Basophils Not Reportable Sodium Potassium Chloride Carbon Dioxide Anion Gap BUN Creatinine Est GFR ( Amer) Est GFR (Non-Af Amer) Glucose Calcium Phosphorus Magnesium Total Bilirubin AST ALT Alkaline Phosphatase Total Protein Albumin 10/25/18 15:50 Pleural Fluid - Right Pleural Effusion Viral Culture - Final 09/29/18 09/29/18 09/29/18 10:44 10:44 12:59 Creatine Kinase Cancelled CK-MB (CK-2) Troponin I Cancelled 0.028 NT-Pro-B Natriuret Pep 09/29/18 09/29/18 09/29/18 12:59 15:30 15:30 Creatine Kinase 77 161 H CK-MB (CK-2) 2.69 Troponin I 0.028 NT-Pro-B Natriuret Pep 09/29/18 09/29/18 09/30/18 18:59 18:59 00:59 Creatine Kinase 201 H 197 H CK-MB (CK-2) 3.45 Troponin I 0.023 NT-Pro-B Natriuret Pep 09/30/18 10/01/18 10/03/18 00:59 04:13 04:50 Creatine Kinase CK-MB (CK-2) 2.94 Troponin I 0.021 NT-Pro-B Natriuret Pep 2270 H 3170 H 10/09/18 04:50 Creatine Kinase CK-MB (CK-2) Troponin I NT-Pro-B Natriuret Pep 630 Impressions: Head CT 10/03/18 00:00 IMPRESSION: CHRONIC CHANGES OF ATROPHY AND MICROVASCULAR ISCHEMIA. NO ACUTE PROCESS. EVIDENCE OF ACUTE STROKE: NO. KUB X-Ray 10/05/18 00:00 IMPRESSION: Nasogastric tube tip and side port in the stomach Abdomen/Pelvis CT 10/23/18 00:00 IMPRESSION: Marked right pleural effusion and compressive atelectasis or obstructive atelectasis of the right lung. Large left pleural effusion. Generalized ascites. Chest CT 10/23/18 00:00 IMPRESSION: Marked right pleural effusion and compressive atelectasis or obstructive atelectasis of the right lung. Large left pleural effusion. Generalized ascites. Chest Ultrasound 10/25/18 00:08 IMPRESSION: See above. Paracentesis Ultrasound 10/25/18 12:53 IMPRESSION: Successful ultrasound-guided paracentesis Chest X-Ray 11/02/18 17:44 IMPRESSION: 1. NASOGASTRIC TUBE WITH THE TIP IN STOMACH. 2. GENERALLY IMPROVED APPEARANCE OF THE CHEST SINCE THE PRIOR STUDY. Assessment & Plan - Diagnosis (1) Septic shock Is this a current diagnosis for this admission?: Yes (2) UTI (urinary tract infection) Qualifiers: Urinary tract infection type: site unspecified Hematuria presence: with hematuria Qualified Code(s): N39.0 - Urinary tract infection, site not specified; R31.9 - Hematuria, unspecified Is this a current diagnosis for this admission?: Yes (3) Hypokalemia Is this a current diagnosis for this admission?: Yes Plan: Replace potassium (4) Hypomagnesemia Is this a current diagnosis for this admission?: Yes Plan: replace magnesium (5) Alcohol abuse Is this a current diagnosis for this admission?: Yes (6) Metabolic encephalopathy Is this a current diagnosis for this admission?: Yes (7) Hyperammonemia Is this a current diagnosis for this admission?: Yes (8) Alcohol withdrawal Qualifiers: Complication of substance-induced condition: with delirium Qualified Code(s): F10.231 - Alcohol dependence with withdrawal delirium Is this a current diagnosis for this admission?: Yes (9) Respiratory failure with hypoxia and hypercapnia Qualifiers: Chronicity: acute Qualified Code(s): J96.01 - Acute respiratory failure with hypoxia; J96.02 - Acute respiratory failure with hypercapnia Is this a current diagnosis for this admission?: Yes Plan: She is requiring oxygen via facemask at 100%, because of risk of CO2 retention due to COPD, she is started on noninvasive positive pressure ventilation, BiPAP (10) Nosocomial pneumonia Is this a current diagnosis for this admission?: Yes (11) Hypotension Qualifiers: Hypotension type: unspecified hypotension type Qualified Code(s): I95.9 - Hypotension, unspecified Is this a current diagnosis for this admission?: Yes (12) Gastroparesis Is this a current diagnosis for this admission?: Yes (13) Acute kidney injury Is this a current diagnosis for this admission?: Yes (14) DIC (disseminated intravascular coagulation) Is this a current diagnosis for this admission?: Yes (15) Hypercalcemia Is this a current diagnosis for this admission?: Yes (16) Paroxysmal atrial fibrillation with RVR Is this a current diagnosis for this admission?: Yes Plan: She did not tolerate maximum dose of Cardizem infusion, this is transition to amiodarone infusion - Plan Summary Plan Summary: Patient's condition is still very precarious, she requires noninvasive positive pressure ventilation
[2018-11-03] MEDS ORDERED: ERTAPENEM SODIUM 1 GM in NORMAL SALINE 50 ML IV SCH (22:00)
[2018-11-03 22:47] LABS: APPEARANCE,URINE CLOUDY; BILIRUBIN,URINE NEGATIVE (NEGATIVE); CALCIUM OXALATE CRYSTALS,URINE FEW /HPF; GLUCOSE, URINE NEGATIVE (NEGATIVE); KETONES,URINE NEGATIVE (NEGATIVE); LEUKOCYTE ESTERASE,URINE LARGE (NEGATIVE); NITRITE,URINE NEGATIVE (NEGATIVE); PROTEIN,URINE 30 mg/dL (NEGATIVE); URINE SPECIFIC GRAVITY 1.009; UROBILINOGEN,URINE NEGATIVE mg/dL (<2.0)
[2018-11-03 22:50] LABS: COLOR,URINE YELLOW
[2018-11-04] MEDS: ERTAPENEM SODIUM 0.5 GM in NORMAL SALINE 50 ML IV SCH ×2 (00:07→21:13)
[2018-11-04] MEDS: INSULIN LISPRO 100 UNIT/ML 3 ML VIAL SUBCUT SCH ×4 (00:46→18:14)
[2018-11-04] MEDS: IPRATROPIUM/ALBUTEROL 0.5-2.5 MG/3 ML AMPUL NEB SCH ×4 (02:08→20:28)
[2018-11-04] MEDS: LACTOBACILLUS ACIDOPHILUS 250 MG TAB NG SCH ×2 (05:30→18:13)
[2018-11-04] MEDS ORDERED: DEXTROSE 40% GEL 15 GM TUBE PO PRN ×2 (05:49)
[2018-11-04] MEDS ORDERED: GLUCAGON,HUMAN RECOMB 1 MG INJ SUBCUT PRN (05:50)
[2018-11-04] MEDS ORDERED: DEXTROSE 50%-WATER 25 GM/50 ML DISP.SYRIN IV PRN ×2 (05:50)
[2018-11-04 06:44] LABS: ANION GAP 10 (5-19); BLOOD UREA NITROGEN 37 mg/dL (7-20); CALCIUM 9.5 mg/dL (8.4-10.2); CARBON DIOXIDE 34 mmol/L (22-30); CHLORIDE 102 mmol/L (98-107); GLUCOSE 151 mg/dL (75-110); SODIUM 145.7 mmol/L (137-145)
[2018-11-04 07:10] LABS: POTASSIUM 3.8 mmol/L (3.6-5.0)
[2018-11-04] MEDS: ACETYLCYSTEINE 20% SOLN 800 MG/4 ML VIAL.NEB NEB SCH ×2 (08:09→20:28)
[2018-11-04 08:22] LABS: MEAN CORPUSCULAR HEMOGLOBIN 31.9 pg (27.0-33.4); MEAN CORPUSCULAR HGB CONC 32.4 g/dL (32.0-36.0); MEAN CORPUSCULAR VOLUME 98 fl (80-97); RED BLOOD COUNT 2.64 10^6/uL (3.72-5.28); RED CELL DISTRIBUTION WIDTH 24.7 % (11.5-14.0); WHITE BLOOD COUNT 21.3 10^3/uL (4.0-10.5)
[2018-11-04 08:32] LABS: HEMOGLOBIN 8.4 g/dL (12.0-15.5)
[2018-11-04 08:36] LABS: PLATELET COUNT 90 10^3/uL (150-450)
[2018-11-04 08:38] LABS: ABSOLUTE LYMPHOCYTES# (MANUAL) 1.7 10^3/uL (0.5-4.7); ABSOLUTE MONOCYTES # (MANUAL) 1.3 10^3/uL (0.1-1.4); ABSOLUTE NEUTROPHILS# (MANUAL) 18.3 10^3/uL (1.7-8.2); BAND NEUTROPHILS % (MANUAL) 3 % (3-5); BASOPHILS % (MANUAL) 0 % (0-2); EOSINOPHILS % (MANUAL) 0 % (0-6); LYMPHOCYTES % (MANUAL) 8 % (13-45); MONOCYTES % (MANUAL) 6 % (3-13); SEGMENTED NEUTROPHILS % (MAN) 83 % (42-78); TOTAL CELLS COUNTED 100
[2018-11-04 08:40] LABS: ANISOCYTOSIS 3+; OVALOCYTES SLIGHT; POIKILOCYTOSIS SLIGHT; POLYCHROMASIA SLIGHT; TARGET CELLS SLIGHT; TEAR DROP CELLS SLIGHT; TOXIC VACUOLATION PRESENT
[2018-11-04 08:43] LABS: PLATELET COMMENT DECREASED
--- NOTE | 2018-11-04 11:33 | RADIOLOGY REPORT (SQ) ---
EXAM DESCRIPTION: KUB/ABDOMEN (SINGLE VIEW) COMPLETED DATE/TIME: 11/04/2018 11:04 am REASON FOR STUDY: NGT PLACEMENT COMPARISON: CT chest 10/23/2018 KUB 10/05/2018 NUMBER OF VIEWS: One view. TECHNIQUE: Supine radiographic image of the upper abdomen acquired. LIMITATIONS: None. FINDINGS: AP film of the upper abdomen is submitted. A nasogastric tube is present with the tip and side port in the stomach. Right jugular central line tip in the superior vena cava/right atrium. Right femoral dialysis catheter tip in the inferior vena cava. Defibrillator pads are seen over the chest. Stomach is decompressed IMPRESSION: Nasogastric tube tip and side port in the stomach. TECHNICAL DOCUMENTATION: JOB ID: [id number] [employer]- All Rights Reserved Reading location - IP/workstation name: [email or web address]
[2018-11-04] MEDS: AMINO AC/PROTEIN HYDR/WHEY PRO 11 GM/45 ML PKT NG SCH ×3 (12:10→18:15)
[2018-11-04] MEDS: NYSTATIN TOPICAL POWDER 15 GM TP SCH ×2 (12:11→18:14)
[2018-11-04 15:37] LABS: A/G RATIO. 0.9 (0.7-1.7); ALBUMIN 3 3.1 g/dL (2.9-4.4); ALPHA-1-GLOBULIN 0.3 g/dL (0.0-0.4); BETA GLOBULIN 0.9 g/dL (0.7-1.3); GAMMA GLOBULINS 2.2 g/dL (0.4-1.8); IMMUNOGLOBULIN A 625 mg/dL (87-352); IMMUNOGLOBULIN G 2082 mg/dL (700-1600); IMMUNOGLOBULIN M 250 mg/dL (26-217); MONOCLONAL-SPIKE Not Observed g/dL (Not Observ); PROTEIN TOTAL SERUM 6.7 g/dL (6.0-8.5)
[2018-11-04] MEDS: DILTIAZEM HCL 60 MG TABLET NG SCH ×2 (15:45→18:13)
[2018-11-04 16:38] LABS: ALBUMIN URINE 24HR 26.7 % (.); ALPHA-1-GLOBULIN URINE 24HR 3.6 % (.); GAMMA GLOBULIN URINE 24HR 35.8 % (.); PROTEIN TOTAL UR 24HR 437 mg/24 hr (30-150); PROTEIN TOTAL URINE 14.8 mg/dL (Not Estab.)
[2018-11-04] MEDS ORDERED: FUROSEMIDE INJ/PF 40 MG/4 ML SDV IV ONE (18:00)
--- NOTE | 2018-11-04 18:17 | PDOC PROGRESS REPORT ---
Subjective Progress Note for:: 11/04/18 Subjective:: Patient remains to be on BiPAP. She has not had any arrhythmia you like yesterday so her amiodarone drip was stopped. Her urine output is also decreasing today. She only made about 750 mL of urine yesterday. Her only intake is through the tube feeds currently at 15 mL an hour and sometimes it needs to be held due to high residuals. She tells me she is feeling fine but does not really verbalize any other complaints. Reason For Visit: SEPSIS, UTI, AMS, ACUTE KIDNEY INJURY, DELIRIUM Physical Exam Vital Signs: Temp Pulse Resp BP Pulse Ox 99.0 F 88 14 95/65 L 95 11/04/18 08:08 11/04/18 14:13 11/04/18 16:18 11/04/18 12:00 11/04/18 16:18 Intake & Output 11/03/18 11/04/18 11/05/18 06:59 06:59 06:59 Intake Total 721 1838 1285 Output Total 2250 755 200 Balance -1529 1083 1085 Weight 80.5 kg 86.3 kg Exam: General appearance: PRESENT: Currently on BiPAP and answers questions very minimally Head exam: PRESENT: atraumatic, normocephalic Eye exam: PRESENT: conjunctiva pale, PERRLA. ABSENT: scleral icterus Neck exam: ABSENT: JVD; she seems to have some subacute subcutaneous swelling around her neck Respiratory exam: PRESENT: Diminished breath sounds. ABSENT: crackles, rales, rhonchi, unlabored, wheezes Cardiovascular exam: PRESENT: Regular rate rhythm -+S1, +S2. ABSENT: diastolic murmur, systolic murmur GI/Abdominal exam: PRESENT: normal bowel sounds, soft. ABSENT: guarding, mass, tenderness Extremities exam: Positive edema on bilateral hips and back but not much in her upper and lower extremities like before. Neurological exam: PRESENT: Still confused. Skin exam: PRESENT: dry, warm, Cardiovascular exam: PRESENT: +S1, +S2, systolic murmur GI/Abdominal exam: PRESENT: normal bowel sounds, soft. ABSENT: organomegaly, tenderness Results Laboratory Results: 11/04/18 07:50 11/04/18 06:15 11/03/18 11/04/18 11/04/18 22:15 06:15 06:15 WBC Cancelled RBC Cancelled Hgb Cancelled Hct Cancelled MCV Cancelled MCH Cancelled MCHC Cancelled RDW Cancelled Plt Count Cancelled Seg Neutrophils % Cancelled Lymphocytes % Cancelled Monocytes % Cancelled Eosinophils % Cancelled Basophils % Cancelled Absolute Neutrophils Cancelled Absolute Lymphocytes Cancelled Absolute Monocytes Cancelled Absolute Eosinophils Cancelled Absolute Basophils Cancelled Sodium 145.7 H Potassium 3.8 D Chloride 102 Carbon Dioxide 34 H Anion Gap 10 BUN 37 H Creatinine 2.68 H Est GFR ( Amer) 22 L Est GFR (Non-Af Amer) 18 L Glucose 151 H Calcium 9.5 Urine Color YELLOW Urine Appearance CLOUDY Urine pH 7.0 Ur Specific [place] 1.009 Urine Protein 30 H Urine Glucose (UA) NEGATIVE Urine Ketones NEGATIVE Urine Blood MODERATE H Urine Nitrite NEGATIVE Ur Leukocyte Esterase LARGE H Urine WBC (Auto) >182 Urine RBC (Auto) 10 11/04/18 07:50 WBC 21.3 H RBC 2.64 L Hgb 8.4 L D Hct 26.0 L MCV 98 H MCH 31.9 MCHC 32.4 RDW 24.7 H Plt Count 90 L Seg Neutrophils % Not Reportable Lymphocytes % Not Reportable Monocytes % Not Reportable Eosinophils % Not Reportable Basophils % Not Reportable Absolute Neutrophils Not Reportable Absolute Lymphocytes Not Reportable Absolute Monocytes Not Reportable Absolute Eosinophils Not Reportable Absolute Basophils Not Reportable Sodium Potassium Chloride Carbon Dioxide Anion Gap BUN Creatinine Est GFR ( Amer) Est GFR (Non-Af Amer) Glucose Calcium Urine Color Urine Appearance Urine pH Ur Specific [place] Urine Protein Urine Glucose (UA) Urine Ketones Urine Blood Urine Nitrite Ur Leukocyte Esterase Urine WBC (Auto) Urine RBC (Auto) 09/29/18 09/29/18 09/29/18 10:44 10:44 12:59 Creatine Kinase Cancelled CK-MB (CK-2) Troponin I Cancelled 0.028 NT-Pro-B Natriuret Pep 09/29/18 09/29/18 09/29/18 12:59 15:30 15:30 Creatine Kinase 77 161 H CK-MB (CK-2) 2.69 Troponin I 0.028 NT-Pro-B Natriuret Pep 09/29/18 09/29/18 09/30/18 18:59 18:59 00:59 Creatine Kinase 201 H 197 H CK-MB (CK-2) 3.45 Troponin I 0.023 NT-Pro-B Natriuret Pep 09/30/18 10/01/18 10/03/18 00:59 04:13 04:50 Creatine Kinase CK-MB (CK-2) 2.94 Troponin I 0.021 NT-Pro-B Natriuret Pep 2270 H 3170 H 10/09/18 04:50 Creatine Kinase CK-MB (CK-2) Troponin I NT-Pro-B Natriuret Pep 630 Impressions: Head CT 10/03/18 00:00 IMPRESSION: CHRONIC CHANGES OF ATROPHY AND MICROVASCULAR ISCHEMIA. NO ACUTE PROCESS. EVIDENCE OF ACUTE STROKE: NO. Abdomen/Pelvis CT 10/23/18 00:00 IMPRESSION: Marked right pleural effusion and compressive atelectasis or obstructive atelectasis of the right lung. Large left pleural effusion. Generalized ascites. Chest CT 10/23/18 00:00 IMPRESSION: Marked right pleural effusion and compressive atelectasis or obstructive atelectasis of the right lung. Large left pleural effusion. Generalized ascites. Chest Ultrasound 10/25/18 00:08 IMPRESSION: See above. Paracentesis Ultrasound 10/25/18 12:53 IMPRESSION: Successful ultrasound-guided paracentesis Chest X-Ray 11/02/18 17:44 IMPRESSION: 1. NASOGASTRIC TUBE WITH THE TIP IN STOMACH. 2. GENERALLY IMPROVED APPEARANCE OF THE CHEST SINCE THE PRIOR STUDY. KUB X-Ray 11/04/18 00:00 IMPRESSION: Nasogastric tube tip and side port in the stomach. Assessment & Plan - Diagnosis (1) Acute kidney injury Is this a current diagnosis for this admission?: Yes Plan: Secondary to ATN due to septic shock. Urine output has declined again since yesterday and today is even worse. The patient has had negative fluid balance for at least 3 days prior to yesterday. Her blood pressure is also low. I think she is intravascularly volume depleted. I am going to start her with some maintenance IV fluids. We will also give her IV albumin. I do not think she needs diuretics at this point. (2) Acute tubular necrosis Is this a current diagnosis for this admission?: Yes (3) Paroxysmal atrial fibrillation with RVR Is this a current diagnosis for this admission?: Yes Plan: Electrolyte abnormalities could precipitate this intermittently. (4) Hypomagnesemia Is this a current diagnosis for this admission?: Yes Plan: Potassium replaced yesterday. Repeat labs. (5) Hypokalemia Is this a current diagnosis for this admission?: Yes Plan: Replaced yesterday and currently normal. (6) Hypernatremia Is this a current diagnosis for this admission?: Yes Plan: Improved by minimal hypotonic IV fluids that I gave yesterday. We will continue some maintenance IV fluids. Continue water flushes. We will change the water flushes to 50 mL an hour. (7) UTI (urinary tract infection) Qualifiers: Urinary tract infection type: site unspecified Hematuria presence: with hematuria Qualified Code(s): N39.0 - Urinary tract infection, site not specified; R31.9 - Hematuria, unspecified Is this a current diagnosis for this admission?: Yes Plan: Currently on ertapenem. (8) Hypercalcemia Is this a current diagnosis for this admission?: Yes Plan: Resolved. (9) Sepsis Qualifiers: Sepsis type: sepsis due to unspecified organism Qualified Code(s): A41.9 - Sepsis, unspecified organism Is this a current diagnosis for this admission?: Yes (10) Metabolic encephalopathy Is this a current diagnosis for this admission?: Yes Plan: Multifactorial due to septic shock, infection, and alcohol withdrawal. Patient is a bit more awake and alert and answering incomprehensible words at times with some response to questions. (11) Respiratory failure with hypoxia and hypercapnia Qualifiers: Chronicity: acute Qualified Code(s): J96.01 - Acute respiratory failure with hypoxia; J96.02 - Acute respiratory failure with hypercapnia Is this a current diagnosis for this admission?: Yes Plan: On BiPAP. (12) Hypoalbuminemia Is this a current diagnosis for this admission?: Yes Plan: We will give IV albumin today. (13) Nosocomial pneumonia Is this a current diagnosis for this admission?: Yes (14) Alcoholism Is this a current diagnosis for this admission?: Yes Plan: Likely to be the cause of her possible end-stage liver disease. 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 Also strong consideration for possible liver disease. Currently improving. (16) DIC (disseminated intravascular coagulation) Is this a current diagnosis for this admission?: Yes Plan: Hematology following. Considering end-stage liver disease. (17) Hyperammonemia Is this a current diagnosis for this admission?: Yes Plan: The consensus in this patient may have advanced liver disease that is causing her coagulopathy and encephalopathy with elevated ammonia level. Dr. Higuera and Dr. Klein has discussed this with the family multiple times. - Time Time with patient: Greater than 35 minutes
[2018-11-04] MEDS: ALBUMIN HUMAN 12.5 GM/50 ML RTUINJ IV SCH ×2 (20:09→20:21)
[2018-11-04] MEDS: POTASSI CL 20 MEQ/D5-1/2NS 1L 1,000 ML IV PRN (20:16)
--- NOTE | 2018-11-04 21:15 | PDOC PROGRESS REPORT ---
Subjective Progress Note for:: 11/04/18 Subjective:: Patient was seen by the bedside, and condition remained very precarious, she continues to require noninvasive positive pressure ventilation BiPAP, she has residual from the tube feed so the tube feed was held TODAY, urine output is also declining, there is also increasing leukocytosis suggesting infection. Yesterday she had atrial fibrillation she was treated with amiodarone presently sinus rhythm the amiodarone was discontinue Now on Cardizem 60 mg IV every 6 hours Reason For Visit: SEPSIS, UTI, AMS, ACUTE KIDNEY INJURY, DELIRIUM Physical Exam Vital Signs: Temp Pulse Resp BP Pulse Ox 98.9 F 96 18 121/88 H 97 11/04/18 20:07 11/04/18 20:28 11/04/18 20:28 11/04/18 20:07 11/04/18 20:28 Intake & Output 11/03/18 11/04/18 11/05/18 06:59 06:59 06:59 Intake Total 721 1838 2382 Output Total 2250 755 250 Balance -1529 1083 2132 Weight 80.5 kg 86.3 kg General appearance: PRESENT: other - Patient on BiPAP Eye exam: PRESENT: PERRLA Respiratory exam: PRESENT: rales Cardiovascular exam: PRESENT: +S1, +S2 GI/Abdominal exam: PRESENT: soft Neurological exam: PRESENT: alert Results Laboratory Results: 11/04/18 07:50 11/04/18 06:15 11/03/18 11/04/18 11/04/18 22:15 06:15 06:15 WBC Cancelled RBC Cancelled Hgb Cancelled Hct Cancelled MCV Cancelled MCH Cancelled MCHC Cancelled RDW Cancelled Plt Count Cancelled Seg Neutrophils % Cancelled Lymphocytes % Cancelled Monocytes % Cancelled Eosinophils % Cancelled Basophils % Cancelled Absolute Neutrophils Cancelled Absolute Lymphocytes Cancelled Absolute Monocytes Cancelled Absolute Eosinophils Cancelled Absolute Basophils Cancelled Sodium 145.7 H Potassium 3.8 D Chloride 102 Carbon Dioxide 34 H Anion Gap 10 BUN 37 H Creatinine 2.68 H Est GFR ( Amer) 22 L Est GFR (Non-Af Amer) 18 L Glucose 151 H Calcium 9.5 Urine Color YELLOW Urine Appearance CLOUDY Urine pH 7.0 Ur Specific [place] 1.009 Urine Protein 30 H Urine Glucose (UA) NEGATIVE Urine Ketones NEGATIVE Urine Blood MODERATE H Urine Nitrite NEGATIVE Ur Leukocyte Esterase LARGE H Urine WBC (Auto) >182 Urine RBC (Auto) 10 11/04/18 07:50 WBC 21.3 H RBC 2.64 L Hgb 8.4 L D Hct 26.0 L MCV 98 H MCH 31.9 MCHC 32.4 RDW 24.7 H Plt Count 90 L Seg Neutrophils % Not Reportable Lymphocytes % Not Reportable Monocytes % Not Reportable Eosinophils % Not Reportable Basophils % Not Reportable Absolute Neutrophils Not Reportable Absolute Lymphocytes Not Reportable Absolute Monocytes Not Reportable Absolute Eosinophils Not Reportable Absolute Basophils Not Reportable Sodium Potassium Chloride Carbon Dioxide Anion Gap BUN Creatinine Est GFR ( Amer) Est GFR (Non-Af Amer) Glucose Calcium Urine Color Urine Appearance Urine pH Ur Specific [place] Urine Protein Urine Glucose (UA) Urine Ketones Urine Blood Urine Nitrite Ur Leukocyte Esterase Urine WBC (Auto) Urine RBC (Auto) 09/29/18 09/29/18 09/29/18 10:44 10:44 12:59 Creatine Kinase Cancelled CK-MB (CK-2) Troponin I Cancelled 0.028 NT-Pro-B Natriuret Pep 09/29/18 09/29/18 09/29/18 12:59 15:30 15:30 Creatine Kinase 77 161 H CK-MB (CK-2) 2.69 Troponin I 0.028 NT-Pro-B Natriuret Pep 09/29/18 09/29/18 09/30/18 18:59 18:59 00:59 Creatine Kinase 201 H 197 H CK-MB (CK-2) 3.45 Troponin I 0.023 NT-Pro-B Natriuret Pep 09/30/18 10/01/18 10/03/18 00:59 04:13 04:50 Creatine Kinase CK-MB (CK-2) 2.94 Troponin I 0.021 NT-Pro-B Natriuret Pep 2270 H 3170 H 10/09/18 04:50 Creatine Kinase CK-MB (CK-2) Troponin I NT-Pro-B Natriuret Pep 630 Impressions: Head CT 10/03/18 00:00 IMPRESSION: CHRONIC CHANGES OF ATROPHY AND MICROVASCULAR ISCHEMIA. NO ACUTE PROCESS. EVIDENCE OF ACUTE STROKE: NO. Abdomen/Pelvis CT 10/23/18 00:00 IMPRESSION: Marked right pleural effusion and compressive atelectasis or obstructive atelectasis of the right lung. Large left pleural effusion. Generalized ascites. Chest CT 10/23/18 00:00 IMPRESSION: Marked right pleural effusion and compressive atelectasis or obstructive atelectasis of the right lung. Large left pleural effusion. Generalized ascites. Chest Ultrasound 10/25/18 00:08 IMPRESSION: See above. Paracentesis Ultrasound 10/25/18 12:53 IMPRESSION: Successful ultrasound-guided paracentesis Chest X-Ray 11/02/18 17:44 IMPRESSION: 1. NASOGASTRIC TUBE WITH THE TIP IN STOMACH. 2. GENERALLY IMPROVED APPEARANCE OF THE CHEST SINCE THE PRIOR STUDY. KUB X-Ray 11/04/18 00:00 IMPRESSION: Nasogastric tube tip and side port in the stomach. Assessment & Plan - Diagnosis (1) Septic shock Is this a current diagnosis for this admission?: Yes (2) UTI (urinary tract infection) Qualifiers: Urinary tract infection type: site unspecified Hematuria presence: with hematuria Qualified Code(s): N39.0 - Urinary tract infection, site not specified; R31.9 - Hematuria, unspecified Is this a current diagnosis for this admission?: Yes Plan: Continue IV ertapenem (3) Hypokalemia Is this a current diagnosis for this admission?: Yes (4) Hypomagnesemia Is this a current diagnosis for this admission?: Yes (5) Alcohol abuse Is this a current diagnosis for this admission?: Yes (6) Metabolic encephalopathy Is this a current diagnosis for this admission?: Yes (7) Hyperammonemia Is this a current diagnosis for this admission?: Yes (8) Alcohol withdrawal Qualifiers: Complication of substance-induced condition: with delirium Qualified Code(s): F10.231 - Alcohol dependence with withdrawal delirium Is this a current diagnosis for this admission?: Yes (9) Respiratory failure with hypoxia and hypercapnia Qualifiers: Chronicity: acute Qualified Code(s): J96.01 - Acute respiratory failure with hypoxia; J96.02 - Acute respiratory failure with hypercapnia Is this a current diagnosis for this admission?: Yes (10) Nosocomial pneumonia Is this a current diagnosis for this admission?: Yes (11) Hypotension Qualifiers: Hypotension type: unspecified hypotension type Qualified Code(s): I95.9 - Hypotension, unspecified Is this a current diagnosis for this admission?: Yes (12) Gastroparesis Is this a current diagnosis for this admission?: Yes (13) Acute kidney injury Is this a current diagnosis for this admission?: Yes (14) DIC (disseminated intravascular coagulation) Is this a current diagnosis for this admission?: Yes (15) Hypercalcemia Is this a current diagnosis for this admission?: Yes (16) Paroxysmal atrial fibrillation with RVR Is this a current diagnosis for this admission?: Yes Plan: Discontinue amiodarone, continue Cardizem 60 mg via NG tube every 6 hours
[2018-11-04 21:50] LABS: BLOOD UREA NITROGEN 42 mg/dL (7-20); CALCIUM 9.8 mg/dL (8.4-10.2); GLUCOSE 112 mg/dL (75-110)
[2018-11-04 21:51] LABS: ALANINE AMINOTRANSFERASE 14 U/L (9-52); ALBUMIN 2.8 g/dL (3.5-5.0); ALKALINE PHOSPHATASE 85 U/L (38-126); ANION GAP 9 (5-19); ASPARTATE AMINO TRANSFERASE 30 U/L (14-36); BILIRUBIN,DIRECT 2.8 mg/dL (0.0-0.4); BILIRUBIN,TOTAL 3.6 mg/dL (0.2-1.3); CARBON DIOXIDE 33 mmol/L (22-30); CHLORIDE 102 mmol/L (98-107); POTASSIUM 3.6 mmol/L (3.6-5.0); SODIUM 143.7 mmol/L (137-145); TOTAL PROTEIN 6.4 g/dL (6.3-8.2)
[2018-11-05] MEDS: INSULIN LISPRO 100 UNIT/ML 3 ML VIAL SUBCUT SCH ×4 (00:38→18:33)
[2018-11-05] MEDS: DILTIAZEM HCL 60 MG TABLET NG SCH ×4 (00:53→17:14)
[2018-11-05] MEDS: IPRATROPIUM/ALBUTEROL 0.5-2.5 MG/3 ML AMPUL NEB SCH ×4 (02:25→19:45)
[2018-11-05] MEDS: LACTOBACILLUS ACIDOPHILUS 250 MG TAB NG SCH ×2 (06:23→17:14)
[2018-11-05 06:43] LABS: ABSOLUTE BASOPHILS # (AUTO) 0.1 10^3/uL (0.0-0.2); ABSOLUTE EOSINOPHILS # (AUTO) 0.1 10^3/uL (0.0-0.6); ABSOLUTE LYMPHOCYTES (AUTO) 1.6 10^3/uL (0.5-4.7); ABSOLUTE MONOCYTES (AUTO) 1.9 10^3/uL (0.1-1.4); ABSOLUTE NEUT (AUTO) 11.7 10^3/uL (1.7-8.2); BASOPHILS % (AUTO) 0.6 % (0-2); EOSINOPHILS % (AUTO) 0.5 % (0-6); HEMATOCRIT 25.2 % (36.0-47.0); HEMOGLOBIN 8.2 g/dL (12.0-15.5); LYMPHOCYTES % (AUTO) 10.2 % (13-45); MEAN CORPUSCULAR HEMOGLOBIN 31.5 pg (27.0-33.4); MEAN CORPUSCULAR HGB CONC 32.6 g/dL (32.0-36.0); MEAN CORPUSCULAR VOLUME 97 fl (80-97); MONOCYTES % (AUTO) 12.3 % (3-13); RED BLOOD COUNT 2.61 10^6/uL (3.72-5.28); RED CELL DISTRIBUTION WIDTH 23.8 % (11.5-14.0); SEGMENTED NEUTROPHILS % (AUTO) 76.4 % (42-78); TOTAL CELLS COUNTED % (AUTO) 100 %; WHITE BLOOD COUNT 15.4 10^3/uL (4.0-10.5)
[2018-11-05 07:01] LABS: ALBUMIN 2.7 g/dL (3.5-5.0); ANION GAP 9 (5-19); BLOOD UREA NITROGEN 50 mg/dL (7-20); CALCIUM 9.5 mg/dL (8.4-10.2); CARBON DIOXIDE 32 mmol/L (22-30); CHLORIDE 102 mmol/L (98-107); GLUCOSE 95 mg/dL (75-110); POTASSIUM 3.5 mmol/L (3.6-5.0); SODIUM 143.3 mmol/L (137-145)
[2018-11-05 07:04] LABS: PLATELET COUNT 95 10^3/uL (150-450)
[2018-11-05] MEDS: ACETYLCYSTEINE 20% SOLN 800 MG/4 ML VIAL.NEB NEB SCH ×2 (08:24→19:45)
[2018-11-05] MEDS: AMINO AC/PROTEIN HYDR/WHEY PRO 11 GM/45 ML PKT NG SCH ×3 (10:20→17:14)
[2018-11-05] MEDS: NYSTATIN TOPICAL POWDER 15 GM TP SCH ×2 (10:20→17:13)
[2018-11-05] MEDS: POTASSI CL 20 MEQ/D5-1/2NS 1L 1,000 ML IV PRN (14:42)
--- NOTE | 2018-11-05 18:00 | PDOC PROGRESS REPORT ---
Subjective Progress Note for:: 11/05/18 Subjective:: Patient was seen by the bedside, she continues to require noninvasive positive pressure ventilation with BiPAP, she still has nasogastric tube in place for nutrition, she is trying to speak but the words are not clear. Reason For Visit: SEPSIS, UTI, AMS, ACUTE KIDNEY INJURY, DELIRIUM Physical Exam Vital Signs: Temp Pulse Resp BP Pulse Ox 98.7 F 85 18 90/64 L 96 11/05/18 10:55 11/05/18 14:00 11/05/18 14:00 11/05/18 10:55 11/05/18 16:56 Intake & Output 11/04/18 11/05/18 11/06/18 06:59 06:59 06:59 Intake Total 1838 2482 1961 Output Total 755 290 75 Balance 1083 2192 1886 Weight 86.3 kg 87.3 kg General appearance: PRESENT: other - She is alert she has facemask for BiPAP machine in place Eye exam: PRESENT: PERRLA Respiratory exam: PRESENT: rhonchi Cardiovascular exam: PRESENT: +S1, +S2 GI/Abdominal exam: PRESENT: soft Neurological exam: PRESENT: alert Results Laboratory Results: 11/05/18 06:30 11/05/18 06:30 11/01/18 11/03/18 11/04/18 21:36 01:00 21:20 WBC RBC Hgb Hct MCV MCH MCHC RDW Plt Count Seg Neutrophils % Lymphocytes % Monocytes % Eosinophils % Basophils % Absolute Neutrophils Absolute Lymphocytes Absolute Monocytes Absolute Eosinophils Absolute Basophils Sodium 143.7 Potassium 3.6 Chloride 102 Carbon Dioxide 33 H Anion Gap 9 BUN 42 H Creatinine 3.10 H Est GFR ( Amer) 19 L Est GFR (Non-Af Amer) 16 L Glucose 112 H Calcium 9.8 Magnesium Total Bilirubin 3.6 H AST 30 ALT 14 Alkaline Phosphatase 85 Total Protein 6.7 6.4 Albumin 3.1 2.8 L Ur Albumin 24 Hour 26.7 Ur Total Protein 24 Hr 437 H U PEP M-Gunnar % 24 Hr Not Observed U PEP M-Gunnar 24 Hr TNP 11/05/18 11/05/18 06:30 06:30 WBC 15.4 H RBC 2.61 L Hgb 8.2 L Hct 25.2 L MCV 97 MCH 31.5 MCHC 32.6 RDW 23.8 H Plt Count 95 L Seg Neutrophils % 76.4 Lymphocytes % 10.2 L Monocytes % 12.3 Eosinophils % 0.5 Basophils % 0.6 Absolute Neutrophils 11.7 H Absolute Lymphocytes 1.6 Absolute Monocytes 1.9 H Absolute Eosinophils 0.1 Absolute Basophils 0.1 Sodium 143.3 Potassium 3.5 L Chloride 102 Carbon Dioxide 32 H Anion Gap 9 BUN 50 H Creatinine 3.05 H Est GFR ( Amer) 19 L Est GFR (Non-Af Amer) 16 L Glucose 95 Calcium 9.5 Magnesium 1.8 Total Bilirubin AST ALT Alkaline Phosphatase Total Protein Albumin 2.7 L Ur Albumin 24 Hour Ur Total Protein 24 Hr U PEP M-[place]unn[place] % 24 Hr U PEP M-Gunnar 24 Hr 09/29/18 09/29/18 09/29/18 10:44 10:44 12:59 Creatine Kinase Cancelled CK-MB (CK-2) Troponin I Cancelled 0.028 NT-Pro-B Natriuret Pep 09/29/18 09/29/18 09/29/18 12:59 15:30 15:30 Creatine Kinase 77 161 H CK-MB (CK-2) 2.69 Troponin I 0.028 NT-Pro-B Natriuret Pep 09/29/18 09/29/18 09/30/18 18:59 18:59 00:59 Creatine Kinase 201 H 197 H CK-MB (CK-2) 3.45 Troponin I 0.023 NT-Pro-B Natriuret Pep 09/30/18 10/01/18 10/03/18 00:59 04:13 04:50 Creatine Kinase CK-MB (CK-2) 2.94 Troponin I 0.021 NT-Pro-B Natriuret Pep 2270 H 3170 H 10/09/18 04:50 Creatine Kinase CK-MB (CK-2) Troponin I NT-Pro-B Natriuret Pep 630 Impressions: Head CT 10/03/18 00:00 IMPRESSION: CHRONIC CHANGES OF ATROPHY AND MICROVASCULAR ISCHEMIA. NO ACUTE PROCESS. EVIDENCE OF ACUTE STROKE: NO. Abdomen/Pelvis CT 10/23/18 00:00 IMPRESSION: Marked right pleural effusion and compressive atelectasis or obstructive atelectasis of the right lung. Large left pleural effusion. Generalized ascites. Chest CT 10/23/18 00:00 IMPRESSION: Marked right pleural effusion and compressive atelectasis or obstructive atelectasis of the right lung. Large left pleural effusion. Generalized ascites. Chest Ultrasound 10/25/18 00:08 IMPRESSION: See above. Paracentesis Ultrasound 10/25/18 12:53 IMPRESSION: Successful ultrasound-guided paracentesis Chest X-Ray 11/02/18 17:44 IMPRESSION: 1. NASOGASTRIC TUBE WITH THE TIP IN STOMACH. 2. GENERALLY IMPROVED APPEARANCE OF THE CHEST SINCE THE PRIOR STUDY. KUB X-Ray 11/04/18 00:00 IMPRESSION: Nasogastric tube tip and side port in the stomach. Assessment & Plan - Diagnosis (1) Septic shock Is this a current diagnosis for this admission?: Yes (2) UTI (urinary tract infection) Qualifiers: Urinary tract infection type: site unspecified Hematuria presence: with hematuria Qualified Code(s): N39.0 - Urinary tract infection, site not specified; R31.9 - Hematuria, unspecified Is this a current diagnosis for this admission?: Yes Plan: She has UTI presently on ertapenem the WBC is on the decline suggesting response to antibiotic (3) Hypokalemia Is this a current diagnosis for this admission?: Yes (4) Hypomagnesemia Is this a current diagnosis for this admission?: Yes (5) Alcohol abuse Is this a current diagnosis for this admission?: Yes (6) Metabolic encephalopathy Is this a current diagnosis for this admission?: Yes (7) Hyperammonemia Is this a current diagnosis for this admission?: Yes (8) Alcohol withdrawal Qualifiers: Complication of substance-induced condition: with delirium Qualified Code(s): F10.231 - Alcohol dependence with withdrawal delirium Is this a current diagnosis for this admission?: Yes (9) Respiratory failure with hypoxia and hypercapnia Qualifiers: Chronicity: acute Qualified Code(s): J96.01 - Acute respiratory failure with hypoxia; J96.02 - Acute respiratory failure with hypercapnia Is this a current diagnosis for this admission?: Yes Plan: She continues to require noninvasive positive pressure ventilation with BiPAP, she will be tried on nasal cannula oxygen (10) Nosocomial pneumonia Is this a current diagnosis for this admission?: Yes (11) Hypotension Qualifiers: Hypotension type: unspecified hypotension type Qualified Code(s): I95.9 - Hypotension, unspecified Is this a current diagnosis for this admission?: Yes (12) Gastroparesis Is this a current diagnosis for this admission?: Yes (13) Acute kidney injury Is this a current diagnosis for this admission?: Yes (14) DIC (disseminated intravascular coagulation) Is this a current diagnosis for this admission?: Yes (15) Hypercalcemia Is this a current diagnosis for this admission?: Yes Plan: She has known PTH mediated hypercalcemia, the serum was negative for M spike, vitamin D level will be ordered (16) Paroxysmal atrial fibrillation with RVR Is this a current diagnosis for this admission?: Yes Plan: She is off amiodarone presently on p.o. Cardizem 60 mg every 6 hours for rate control she is presently not a good candidate for coagulation but she has severe thrombocytopenia - Plan Summary Plan Summary: , The tube feed will be held she did quite well for the dysphagia screen done by the nursing staff she will be encouraged to have clear liquid diet the nasogastric tube remain in place
[2018-11-05] MEDS: ERTAPENEM SODIUM 0.5 GM in NORMAL SALINE 50 ML IV SCH (21:34)
[2018-11-06] MEDS: INSULIN LISPRO 100 UNIT/ML 3 ML VIAL SUBCUT SCH ×4 (00:27→22:51)
[2018-11-06] MEDS: DILTIAZEM HCL 60 MG TABLET NG SCH ×4 (00:28→22:50)
[2018-11-06] MEDS: IPRATROPIUM/ALBUTEROL 0.5-2.5 MG/3 ML AMPUL NEB SCH ×4 (02:09→20:16)
[2018-11-06 03:42] LABS: HEMATOCRIT 27.5 % (36.0-47.0); MEAN CORPUSCULAR HEMOGLOBIN 31.3 pg (27.0-33.4); MEAN CORPUSCULAR HGB CONC 32.7 g/dL (32.0-36.0); MEAN CORPUSCULAR VOLUME 96 fl (80-97); PLATELET COUNT 113 10^3/uL (150-450); RED BLOOD COUNT 2.88 10^6/uL (3.72-5.28); RED CELL DISTRIBUTION WIDTH 23.3 % (11.5-14.0)
[2018-11-06 04:04] LABS: ALANINE AMINOTRANSFERASE 17 U/L (9-52); ALKALINE PHOSPHATASE 116 U/L (38-126); ANION GAP 11 (5-19); ASPARTATE AMINO TRANSFERASE 38 U/L (14-36); BILIRUBIN,DIRECT 3.1 mg/dL (0.0-0.4); BILIRUBIN,TOTAL 3.8 mg/dL (0.2-1.3); BLOOD UREA NITROGEN 53 mg/dL (7-20); CALCIUM 9.8 mg/dL (8.4-10.2); CARBON DIOXIDE 32 mmol/L (22-30); CHLORIDE 100 mmol/L (98-107); GLUCOSE 123 mg/dL (75-110); POTASSIUM 3.2 mmol/L (3.6-5.0); SODIUM 142.7 mmol/L (137-145); TOTAL PROTEIN 6.9 g/dL (6.3-8.2)
[2018-11-06 04:10] LABS: ABSOLUTE LYMPHOCYTES# (MANUAL) 1.3 10^3/uL (0.5-4.7); ABSOLUTE MONOCYTES # (MANUAL) 0.8 10^3/uL (0.1-1.4); ABSOLUTE NEUTROPHILS# (MANUAL) 11.9 10^3/uL (1.7-8.2); BASOPHILS % (MANUAL) 0 % (0-2); EOSINOPHILS % (MANUAL) 0 % (0-6); LYMPHOCYTES % (MANUAL) 9 % (13-45); MONOCYTES % (MANUAL) 6 % (3-13); SEGMENTED NEUTROPHILS % (MAN) 85 % (42-78); TOTAL CELLS COUNTED 100
[2018-11-06 04:11] LABS: PLATELET COMMENT DECREASED
[2018-11-06 04:13] LABS: ANISOCYTOSIS 2+; TOXIC GRANULATION SLIGHT; TOXIC VACUOLATION PRESENT
[2018-11-06 04:14] LABS: OVALOCYTES SLIGHT; TARGET CELLS 1+
[2018-11-06] MEDS: LACTOBACILLUS ACIDOPHILUS 250 MG TAB NG SCH ×2 (05:12→22:55)
[2018-11-06] MEDS: ACETYLCYSTEINE 20% SOLN 800 MG/4 ML VIAL.NEB NEB SCH ×2 (08:16→20:15)
[2018-11-06] MEDS: POTASSI CL 20 MEQ/D5-1/2NS 1L 1,000 ML IV PRN (09:05)
[2018-11-06] MEDS: NYSTATIN TOPICAL POWDER 15 GM TP SCH ×2 (11:28→22:55)
[2018-11-06] MEDS: AMINO AC/PROTEIN HYDR/WHEY PRO 11 GM/45 ML PKT NG SCH ×3 (11:29→22:58)
[2018-11-06 12:36] LABS: INTERNATIONAL RATION (INR) 1.35; PROTHROMBIN TIME 17.4 SEC (11.4-15.4)
[2018-11-06 12:37] LABS: PARTIAL THROMBOPLASTIN TIME 43.7 SEC (23.5-35.8)
[2018-11-06 12:42] LABS: ABSOLUTE LYMPHOCYTES (AUTO) 1.1 10^3/uL (0.5-4.7); ABSOLUTE MONOCYTES (AUTO) 1.4 10^3/uL (0.1-1.4); ABSOLUTE NEUT (AUTO) 10.8 10^3/uL (1.7-8.2); BASOPHILS % (AUTO) 0.2 % (0-2); EOSINOPHILS % (AUTO) 0.3 % (0-6); HEMATOCRIT 28.7 % (36.0-47.0); HEMOGLOBIN 9.4 g/dL (12.0-15.5); MEAN CORPUSCULAR HGB CONC 32.9 g/dL (32.0-36.0); MEAN CORPUSCULAR VOLUME 94 fl (80-97); MONOCYTES % (AUTO) 10.7 % (3-13); PLATELET COUNT 126 10^3/uL (150-450); RED BLOOD COUNT 3.04 10^6/uL (3.72-5.28); RED CELL DISTRIBUTION WIDTH 22.7 % (11.5-14.0); SEGMENTED NEUTROPHILS % (AUTO) 80.8 % (42-78); TOTAL CELLS COUNTED % (AUTO) 100 %; WHITE BLOOD COUNT 13.3 10^3/uL (4.0-10.5)
[2018-11-06 12:54] LABS: ALANINE AMINOTRANSFERASE 27 U/L (9-52); ALBUMIN 2.9 g/dL (3.5-5.0); ALKALINE PHOSPHATASE 112 U/L (38-126); ANION GAP 10 (5-19); ASPARTATE AMINO TRANSFERASE 38 U/L (14-36); BILIRUBIN,DIRECT 2.9 mg/dL (0.0-0.4); BILIRUBIN,TOTAL 3.6 mg/dL (0.2-1.3); BLOOD UREA NITROGEN 54 mg/dL (7-20); CALCIUM 9.6 mg/dL (8.4-10.2); CARBON DIOXIDE 36 mmol/L (22-30); CHLORIDE 97 mmol/L (98-107); GLUCOSE 109 mg/dL (75-110); POTASSIUM 3.1 mmol/L (3.6-5.0); TOTAL PROTEIN 6.8 g/dL (6.3-8.2)
--- NOTE | 2018-11-06 18:51 | PDOC PROGRESS REPORT ---
Subjective Progress Note for:: 11/06/18 Subjective:: She was seen by the bedside she vomited blood, she has NG tube in place, Reason For Visit: SEPSIS, UTI, AMS, ACUTE KIDNEY INJURY, DELIRIUM Physical Exam Vital Signs: Temp Pulse Resp BP Pulse Ox 98.7 F 94 20 134/83 H 97 11/06/18 11:53 11/06/18 14:21 11/06/18 17:00 11/06/18 11:53 11/06/18 17:00 Intake & Output 11/05/18 11/06/18 11/07/18 06:59 06:59 06:59 Intake Total 2482 2946 1000 Output Total 290 1550 Balance 2192 1396 1000 Weight 87.3 kg 88.9 kg General appearance: PRESENT: mild distress Eye exam: PRESENT: PERRLA Respiratory exam: PRESENT: rhonchi Cardiovascular exam: PRESENT: +S1, +S2 GI/Abdominal exam: PRESENT: soft Neurological exam: PRESENT: alert Results Laboratory Results: 11/06/18 12:08 11/06/18 12:08 11/06/18 11/06/18 11/06/18 03:30 03:30 12:08 WBC 14.0 H 13.3 H RBC 2.88 L 3.04 L Hgb 9.0 L 9.4 L Hct 27.5 L 28.7 L MCV 96 94 MCH 31.3 31.0 MCHC 32.7 32.9 RDW 23.3 H 22.7 H Plt Count 113 L 126 L Seg Neutrophils % Not Reportable 80.8 H Lymphocytes % Not Reportable 8.0 L Monocytes % Not Reportable 10.7 Eosinophils % Not Reportable 0.3 Basophils % Not Reportable 0.2 Absolute Neutrophils Not Reportable 10.8 H Absolute Lymphocytes Not Reportable 1.1 Absolute Monocytes Not Reportable 1.4 Absolute Eosinophils Not Reportable 0.0 Absolute Basophils Not Reportable 0.0 Sodium 142.7 Potassium 3.2 L Chloride 100 Carbon Dioxide 32 H Anion Gap 11 BUN 53 H Creatinine 3.56 H Est GFR ( Amer) 16 L Est GFR (Non-Af Amer) 13 L Glucose 123 H Calcium 9.8 Magnesium 1.7 Total Bilirubin 3.8 H AST 38 H ALT 17 Alkaline Phosphatase 116 Ammonia Total Protein 6.9 Albumin 3.0 L 11/06/18 11/06/18 12:08 12:08 WBC RBC Hgb Hct MCV MCH MCHC RDW Plt Count Seg Neutrophils % Lymphocytes % Monocytes % Eosinophils % Basophils % Absolute Neutrophils Absolute Lymphocytes Absolute Monocytes Absolute Eosinophils Absolute Basophils Sodium 143.0 Potassium 3.1 L Chloride 97 L Carbon Dioxide 36 H Anion Gap 10 BUN 54 H Creatinine 3.16 H Est GFR ( Amer) 18 L Est GFR (Non-Af Amer) 15 L Glucose 109 Calcium 9.6 Magnesium Total Bilirubin 3.6 H AST 38 H ALT 27 Alkaline Phosphatase 112 Ammonia < 8.7 L Total Protein 6.8 Albumin 2.9 L 09/29/18 09/29/18 09/29/18 10:44 10:44 12:59 Creatine Kinase Cancelled CK-MB (CK-2) Troponin I Cancelled 0.028 NT-Pro-B Natriuret Pep 09/29/18 09/29/18 09/29/18 12:59 15:30 15:30 Creatine Kinase 77 161 H CK-MB (CK-2) 2.69 Troponin I 0.028 NT-Pro-B Natriuret Pep 09/29/18 09/29/18 09/30/18 18:59 18:59 00:59 Creatine Kinase 201 H 197 H CK-MB (CK-2) 3.45 Troponin I 0.023 NT-Pro-B Natriuret Pep 09/30/18 10/01/18 10/03/18 00:59 04:13 04:50 Creatine Kinase CK-MB (CK-2) 2.94 Troponin I 0.021 NT-Pro-B Natriuret Pep 2270 H 3170 H 10/09/18 04:50 Creatine Kinase CK-MB (CK-2) Troponin I NT-Pro-B Natriuret Pep 630 Impressions: Head CT 10/03/18 00:00 IMPRESSION: CHRONIC CHANGES OF ATROPHY AND MICROVASCULAR ISCHEMIA. NO ACUTE PROCESS. EVIDENCE OF ACUTE STROKE: NO. Abdomen/Pelvis CT 10/23/18 00:00 IMPRESSION: Marked right pleural effusion and compressive atelectasis or obstructive atelectasis of the right lung. Large left pleural effusion. Generalized ascites. Chest CT 10/23/18 00:00 IMPRESSION: Marked right pleural effusion and compressive atelectasis or obstructive atelectasis of the right lung. Large left pleural effusion. Generalized ascites. Chest Ultrasound 10/25/18 00:08 IMPRESSION: See above. Paracentesis Ultrasound 10/25/18 12:53 IMPRESSION: Successful ultrasound-guided paracentesis Chest X-Ray 11/02/18 17:44 IMPRESSION: 1. NASOGASTRIC TUBE WITH THE TIP IN STOMACH. 2. GENERALLY IMPROVED APPEARANCE OF THE CHEST SINCE THE PRIOR STUDY. KUB X-Ray 11/04/18 00:00 IMPRESSION: Nasogastric tube tip and side port in the stomach. Assessment & Plan - Diagnosis (1) Septic shock Is this a current diagnosis for this admission?: Yes (2) UTI (urinary tract infection) Qualifiers: Urinary tract infection type: site unspecified Hematuria presence: with hematuria Qualified Code(s): N39.0 - Urinary tract infection, site not specified; R31.9 - Hematuria, unspecified Is this a current diagnosis for this admission?: Yes (3) Hypokalemia Is this a current diagnosis for this admission?: Yes (4) Hypomagnesemia Is this a current diagnosis for this admission?: Yes (5) Alcohol abuse Is this a current diagnosis for this admission?: Yes (6) Metabolic encephalopathy Is this a current diagnosis for this admission?: Yes (7) Hyperammonemia Is this a current diagnosis for this admission?: Yes (8) Alcohol withdrawal Qualifiers: Complication of substance-induced condition: with delirium Qualified Code(s): F10.231 - Alcohol dependence with withdrawal delirium Is this a current diagnosis for this admission?: Yes (9) Respiratory failure with hypoxia and hypercapnia Qualifiers: Chronicity: acute Qualified Code(s): J96.01 - Acute respiratory failure with hypoxia; J96.02 - Acute respiratory failure with hypercapnia Is this a current diagnosis for this admission?: Yes (10) Nosocomial pneumonia Is this a current diagnosis for this admission?: Yes (11) Hypotension Qualifiers: Hypotension type: unspecified hypotension type Qualified Code(s): I95.9 - Hypotension, unspecified Is this a current diagnosis for this admission?: Yes (12) Gastroparesis Is this a current diagnosis for this admission?: Yes (13) Acute kidney injury Is this a current diagnosis for this admission?: Yes (14) DIC (disseminated intravascular coagulation) Is this a current diagnosis for this admission?: Yes (15) Hypercalcemia Is this a current diagnosis for this admission?: Yes (16) Paroxysmal atrial fibrillation with RVR Is this a current diagnosis for this admission?: Yes (17) Upper GI bleed Is this a current diagnosis for this admission?: Yes Plan: Keep patient n.p.o., history of alcohol liver disease? esophageal varices, she will need EGD, give somatostatin
[2018-11-06] MEDS ORDERED: POTASSI CL 20 MEQ/50 ML RIDER 20 MEQ/50 ML RTUPB IV ONE (19:00)
[2018-11-06] MEDS ORDERED: OCTREOTIDE ACETATE INJ/PF 100 MCG/1 ML SDV ONE (22:01)
[2018-11-06] MEDS: NORMAL SALINE 500 ML with OCTREOTIDE ACETATE 500 MCG IV PRN ×2 (22:53)
[2018-11-06] MEDS: ERTAPENEM SODIUM 0.5 GM in NORMAL SALINE 50 ML IV SCH (22:55)
[2018-11-07] MEDS: DILTIAZEM HCL 60 MG TABLET NG SCH ×5 (01:00→23:07)
[2018-11-07] MEDS: INSULIN LISPRO 100 UNIT/ML 3 ML VIAL SUBCUT SCH ×5 (01:00→23:11)
--- NOTE | 2018-11-07 01:17 | RADIOLOGY REPORT (SQ) ---
EXAM DESCRIPTION: X-ray single view chest. CLINICAL HISTORY: 53 years Female, NG tube placement COMPARISON: 11/02/2018 and 10/28/2018 TECHNIQUE: Single portable x-ray view of the chest performed on 11/07/2018 at 12:48 AM FINDINGS: The lungs are well expanded. There is increasing airspace disease throughout the left lung possibly due to edema, pneumonia or aspiration. There is persistent volume loss in the right lung apex. There is no evidence of a pneumothorax. The cardiac silhouette is normal in size and configuration. The mediastinal contours are normal. No acute osseous abnormality is identified. No focal soft tissue abnormalities are seen. Lines and tubes: The right IJ central venous catheter and feeding tube are grossly stable. The tip of the feeding tube is not well visualized on this examination but at least projects over the left upper quadrant possibly within the body of the stomach. IMPRESSION: 1. Increasing airspace disease throughout the left lung possibly due to edema, pneumonia or aspiration. 2. The tip of the feeding tube is not clearly demonstrated on this study but appears to project over the left upper quadrant in the region of the body of the stomach. 3. Stable right IJ central venous catheter. 4. Persistent volume loss in the right lung apex.
[2018-11-07] MEDS: IPRATROPIUM/ALBUTEROL 0.5-2.5 MG/3 ML AMPUL NEB SCH ×4 (01:45→19:59)
[2018-11-07] MEDS: POTASSI CL 20 MEQ/D5-1/2NS 1L 1,000 ML IV PRN ×2 (03:44→23:09)
[2018-11-07] MEDS: LACTOBACILLUS ACIDOPHILUS 250 MG TAB NG SCH ×2 (05:10→17:48)
[2018-11-07 06:10] LABS: ALANINE AMINOTRANSFERASE 22 U/L (9-52); ALBUMIN 2.8 g/dL (3.5-5.0); ALKALINE PHOSPHATASE 114 U/L (38-126); ANION GAP 12 (5-19); ASPARTATE AMINO TRANSFERASE 36 U/L (14-36); BILIRUBIN,DIRECT 2.7 mg/dL (0.0-0.4); BILIRUBIN,TOTAL 3.4 mg/dL (0.2-1.3); BLOOD UREA NITROGEN 53 mg/dL (7-20); CALCIUM 8.8 mg/dL (8.4-10.2); CARBON DIOXIDE 33 mmol/L (22-30); CHLORIDE 100 mmol/L (98-107); GLUCOSE 93 mg/dL (75-110); POTASSIUM 3.4 mmol/L (3.6-5.0); SODIUM 144.9 mmol/L (137-145); TOTAL PROTEIN 6.5 g/dL (6.3-8.2)
[2018-11-07] MEDS: ACETYLCYSTEINE 20% SOLN 800 MG/4 ML VIAL.NEB NEB SCH ×2 (07:53→19:59)
[2018-11-07] MEDS: NORMAL SALINE 500 ML with OCTREOTIDE ACETATE 500 MCG IV PRN ×4 (10:10→23:10)
[2018-11-07] MEDS: AMINO AC/PROTEIN HYDR/WHEY PRO 11 GM/45 ML PKT NG SCH ×3 (10:10→17:47)
[2018-11-07] MEDS: NYSTATIN TOPICAL POWDER 15 GM TP SCH ×2 (10:11→17:48)
--- NOTE | 2018-11-07 22:21 | PDOC PROGRESS REPORT ---
Subjective Progress Note for:: 11/07/18 Subjective:: Patient was seen by the bedside yesterday she had upper GI bleed, history of alcohol liver disease, varices was suspected, she was started on somatostatin infusion for splanchnic vasoconstriction, no GI was box order person for EGD, hopefully she will seen tomorrow by GI for upper endoscopy. The upper GI bleed has stopped since the somatostatin was started ,she will continue this for 3-5 days. Reason For Visit: SEPSIS, UTI, AMS, ACUTE KIDNEY INJURY, DELIRIUM Physical Exam Vital Signs: Temp Pulse Resp BP Pulse Ox 98.9 F 100 18 126/82 H 98 11/07/18 19:42 11/07/18 19:58 11/07/18 19:58 11/07/18 19:42 11/07/18 19:58 Intake & Output 11/06/18 11/07/18 11/08/18 06:59 06:59 06:59 Intake Total 2946 2300 650 Output Total 1550 2150 1150 Balance 1396 150 -500 Weight 88.9 kg 86.1 kg General appearance: PRESENT: no acute distress Eye exam: PRESENT: PERRLA Respiratory exam: PRESENT: rhonchi Cardiovascular exam: PRESENT: +S1, +S2 GI/Abdominal exam: PRESENT: soft Neurological exam: PRESENT: alert Results Laboratory Results: 11/06/18 12:08 11/07/18 04:30 11/07/18 04:30 Sodium 144.9 Potassium 3.4 L Chloride 100 Carbon Dioxide 33 H Anion Gap 12 BUN 53 H Creatinine 2.96 H Est GFR ( Amer) 20 L Est GFR (Non-Af Amer) 16 L Glucose 93 Calcium 8.8 Total Bilirubin 3.4 H AST 36 ALT 22 Alkaline Phosphatase 114 Total Protein 6.5 Albumin 2.8 L 09/29/18 09/29/18 09/29/18 10:44 10:44 12:59 Creatine Kinase Cancelled CK-MB (CK-2) Troponin I Cancelled 0.028 NT-Pro-B Natriuret Pep 09/29/18 09/29/18 09/29/18 12:59 15:30 15:30 Creatine Kinase 77 161 H CK-MB (CK-2) 2.69 Troponin I 0.028 NT-Pro-B Natriuret Pep 09/29/18 09/29/18 09/30/18 18:59 18:59 00:59 Creatine Kinase 201 H 197 H CK-MB (CK-2) 3.45 Troponin I 0.023 NT-Pro-B Natriuret Pep 09/30/18 10/01/18 10/03/18 00:59 04:13 04:50 Creatine Kinase CK-MB (CK-2) 2.94 Troponin I 0.021 NT-Pro-B Natriuret Pep 2270 H 3170 H 10/09/18 04:50 Creatine Kinase CK-MB (CK-2) Troponin I NT-Pro-B Natriuret Pep 630 Impressions: Head CT 10/03/18 00:00 IMPRESSION: CHRONIC CHANGES OF ATROPHY AND MICROVASCULAR ISCHEMIA. NO ACUTE PROCESS. EVIDENCE OF ACUTE STROKE: NO. Abdomen/Pelvis CT 10/23/18 00:00 IMPRESSION: Marked right pleural effusion and compressive atelectasis or obstructive atelectasis of the right lung. Large left pleural effusion. Generalized ascites. Chest CT 10/23/18 00:00 IMPRESSION: Marked right pleural effusion and compressive atelectasis or obstructive atelectasis of the right lung. Large left pleural effusion. Generalized ascites. Chest Ultrasound 10/25/18 00:08 IMPRESSION: See above. Paracentesis Ultrasound 10/25/18 12:53 IMPRESSION: Successful ultrasound-guided paracentesis KUB X-Ray 11/04/18 00:00 IMPRESSION: Nasogastric tube tip and side port in the stomach. Chest X-Ray 11/07/18 00:00 IMPRESSION: 1. Increasing airspace disease throughout the left lung possibly due to edema, pneumonia or aspiration. 2. The tip of the feeding tube is not clearly demonstrated on this study but appears to project over the left upper quadrant in the region of the body of the stomach. 3. Stable right IJ central venous catheter. 4. Persistent volume loss in the right lung apex. Assessment & Plan - Diagnosis (1) Septic shock Is this a current diagnosis for this admission?: Yes (2) UTI (urinary tract infection) Qualifiers: Urinary tract infection type: site unspecified Hematuria presence: with hematuria Qualified Code(s): N39.0 - Urinary tract infection, site not specifi ed; R31.9 - Hematuria, unspecified Is this a current diagnosis for this admission?: Yes (3) Hypokalemia Is this a current diagnosis for this admission?: Yes (4) Hypomagnesemia Is this a current diagnosis for this admission?: Yes (5) Alcohol abuse Is this a current diagnosis for this admission?: Yes (6) Metabolic encephalopathy Is this a current diagnosis for this admission?: Yes (7) Hyperammonemia Is this a current diagnosis for this admission?: Yes (8) Alcohol withdrawal Qualifiers: Complication of substance-induced condition: with delirium Qualified Code(s): F10.231 - Alcohol dependence with withdrawal delirium Is this a current diagnosis for this admission?: Yes (9) Respiratory failure with hypoxia and hypercapnia Qualifiers: Chronicity: acute Qualified Code(s): J96.01 - Acute respiratory failure with hypoxia; J96.02 - Acute respiratory failure with hypercapnia Is this a current diagnosis for this admission?: Yes (10) Nosocomial pneumonia Is this a current diagnosis for this admission?: Yes (11) Hypotension Qualifiers: Hypotension type: unspecified hypotension type Qualified Code(s): I95.9 - Hypotension, unspecified Is this a current diagnosis for this admission?: Yes (12) Gastroparesis Is this a current diagnosis for this admission?: Yes (13) Acute kidney injury Is this a current diagnosis for this admission?: Yes (14) DIC (disseminated intravascular coagulation) Is this a current diagnosis for this admission?: Yes (15) Hypercalcemia Is this a current diagnosis for this admission?: Yes (16) Paroxysmal atrial fibrillation with RVR Is this a current diagnosis for this admission?: Yes (17) Upper GI bleed Is this a current diagnosis for this admission?: Yes Plan: Continue IV somatostatin for 3-5 days
[2018-11-07] MEDS: ERTAPENEM SODIUM 0.5 GM in NORMAL SALINE 50 ML IV SCH (22:58)
[2018-11-08] MEDS: IPRATROPIUM/ALBUTEROL 0.5-2.5 MG/3 ML AMPUL NEB SCH ×4 (01:44→20:58)
[2018-11-08] MEDS: INSULIN LISPRO 100 UNIT/ML 3 ML VIAL SUBCUT SCH ×3 (05:29→17:00)
[2018-11-08] MEDS: DILTIAZEM HCL 60 MG TABLET NG SCH ×2 (05:30→15:10)
[2018-11-08] MEDS: LACTOBACILLUS ACIDOPHILUS 250 MG TAB NG SCH (05:30)
[2018-11-08] MEDS: ACETYLCYSTEINE 20% SOLN 800 MG/4 ML VIAL.NEB NEB SCH ×2 (07:45→20:58)
[2018-11-08] MEDS: NORMAL SALINE 500 ML with OCTREOTIDE ACETATE 500 MCG IV PRN ×2 (08:45)
[2018-11-08] MEDS: NYSTATIN TOPICAL POWDER 15 GM TP SCH ×2 (10:22→18:15)
[2018-11-08] MEDS: AMINO AC/PROTEIN HYDR/WHEY PRO 11 GM/45 ML PKT NG SCH ×2 (10:22→16:52)
[2018-11-08] MEDS ORDERED: PROPOFOL INJ 200 MG/20 ML VIAL IV ONE (13:27)
[2018-11-08] MEDS ORDERED: MIDAZOLAM 2 MG/2 ML INJ ONE (13:27)
[2018-11-08] MEDS ORDERED: DIPHENHYDRAMINE HCL 50 MG/ML VIAL IV PRN (13:43)
--- NOTE | 2018-11-08 14:29 | PDOC CONSULTATION ---
Consultation Consult Date: 11/07/18 Attending physician:: MARKUS TOMLIN Consult reason:: GI bleeding History of Present Illness Admission Date/PCP: 09/29/18 13:24 ABNER WILKINS MD History of Present Illness: MAAME SAENZ is a 53 year old female patient has been admitted for a prolonged period of time history of previous ETOH use and was originally admitted for respiratory difficulty requiring intubation and management in the ICU had a bronchoscopy at that time patient does have a history of alcohol use in the past once transferred out was then noticed to have possible GI bleeding I was asked to see if there was a specific etiology she will need an EGD she is currently on Sandostatin on the assumption that she could have variceal bleeding however other etiology needs to be excluded she does have NG tube in place patient was previously noted to have blood in her mouth her vitals are however stable and no hemodynamic compromise was noted to require transfer to back to the ICU I will schedule her for an EGD no family member is available , consent may be an issue Past Medical History Cardiac Medical History: Reports: DVT Pulmonary Medical History: Reports: Chronic Obstructive Pulmonary Disease (COPD), Intubation, Pneumonia, Respiratory Failure Denies: Tuberculosis Malignancy Medical History: Reports: Lymphoma - History of non-Hodgkin's lymphoma diagnosed 13 years ago. Had limited chem GI Medical History: Reports: Cirrhosis Psychiatric Medical History: Denies: Depression Hematology: Reports: Anemia Past Surgical History Past Surgical History: Reports: Section, Hysterectomy, Orthopedic Surgery - Left hip replacement, right knee, Tonsillectomy, Tubal Ligation Denies: Pacemaker Social History Smoking Status: Current Every Day Smoker Frequency of Alcohol Use: Heavy Hx Recreational Drug Use: No Drugs: Cocaine Hx Prescription Drug Abuse: No - Advance Directive Resuscitation Status: Full Code Family History Family History: Reviewed & Not Pertinent Parental Family History Reviewed: Yes Children Family History Reviewed: Unknown Sibling(s) Family History Reviewed.: Unknown Medication/Allergy Home Medications: No Home Medications 09/29/18 Allergies/Adverse Reactions: No Known Allergies Allergy (Verified 04/05/18 07:38) Review of Systems Constitutional: ABSENT: fever(s), headache(s), night sweats Eyes: ABSENT: visual disturbances Ears: ABSENT: hearing changes Nose, Mouth, and Throat: ABSENT: mouth pain, sore throat Cardiovascular: ABSENT: edema, orthropnea, palpitations Respiratory: ABSENT: dyspnea, hemoptysis Gastrointestinal: ABSENT: dysphagia, hematemesis, hematochezia Genitourinary: ABSENT: dysuria, hematuria Musculoskeletal: ABSENT: joint swelling Integumentary: ABSENT: pruritus Neurological: ABSENT: tremor(s) Endocrine: ABSENT: polydipsia, polyphagia, polyuria Hematologic/Lymphatic: ABSENT: easy bruising Physical Exam Vital Signs: Temp Pulse Resp BP Pulse Ox 98.8 F 91 14 95/76 L 100 11/08/18 10:40 11/08/18 11:17 11/08/18 10:40 11/08/18 11:17 11/08/18 11:17 Intake & Output 11/07/18 11/08/18 11/09/18 06:59 06:59 06:59 Intake Total 2300 2310 479 Output Total 2150 1800 Balance 150 510 479 Weight 86.1 kg 85.6 kg General appearance: PRESENT: mild distress, well-developed, well-nourished Head exam: PRESENT: atraumatic, normocephalic Eye exam: PRESENT: EOMI, PERRLA. ABSENT: nystagmus, periorbital swelling Mouth exam: PRESENT: moist Throat exam: ABSENT: tonsillar exudate, tonsillogmegaly Neck exam: ABSENT: meningismus, thyromegaly Respiratory exam: PRESENT: symmetrical. ABSENT: tachypnea, wheezes Cardiovascular exam: PRESENT: +S1, +S2 GI/Abdominal exam: PRESENT: soft. ABSENT: rebound, rigid Extremities exam: ABSENT: joint swelling Neurological exam: PRESENT: awake Focused psych exam: ABSENT: restlessness Skin exam: PRESENT: normal color. ABSENT: mottled, pallor, urticaria, vesicles Results Laboratory Results: 11/06/18 12:08 11/07/18 04:30 11/03/18 22:15 Ybarra Catheter Urine Culture - Final Enterobacter Cloacae Pseudomonas Aeruginosa 09/29/18 09/29/18 09/29/18 10:44 10:44 12:59 Creatine Kinase Cancelled CK-MB (CK-2) Troponin I Cancelled 0.028 NT-Pro-B Natriuret Pep 09/29/18 09/29/18 09/29/18 12:59 15:30 15:30 Creatine Kinase 77 161 H CK-MB (CK-2) 2.69 Troponin I 0.028 NT-Pro-B Natriuret Pep 09/29/18 09/29/18 09/30/18 18:59 18:59 00:59 Creatine Kinase 201 H 197 H CK-MB (CK-2) 3.45 Troponin I 0.023 NT-Pro-B Natriuret Pep 09/30/18 10/01/18 10/03/18 00:59 04:13 04:50 Creatine Kinase CK-MB (CK-2) 2.94 Troponin I 0.021 NT-Pro-B Natriuret Pep 2270 H 3170 H 10/09/18 04:50 Creatine Kinase CK-MB (CK-2) Troponin I NT-Pro-B Natriuret Pep 630 Impressions: Head CT 10/03/18 00:00 IMPRESSION: CHRONIC CHANGES OF ATROPHY AND MICROVASCULAR ISCHEMIA. NO ACUTE PROCESS. EVIDENCE OF ACUTE STROKE: NO. Abdomen/Pelvis CT 10/23/18 00:00 IMPRESSION: Marked right pleural effusion and compressive atelectasis or obstructive atelectasis of the right lung. Large left pleural effusion. Generalized ascites. Chest CT 10/23/18 00:00 IMPRESSION: Marked right pleural effusion and compressive atelectasis or obstructive atelectasis of the right lung. Large left pleural effusion. Generalized ascites. Chest Ultrasound 10/25/18 00:08 IMPRESSION: See above. Paracentesis Ultrasound 10/25/18 12:53 IMPRESSION: Successful ultrasound-guided paracentesis KUB X-Ray 11/04/18 00:00 IMPRESSION: Nasogastric tube tip and side port in the stomach. Chest X-Ray 11/07/18 00:00 IMPRESSION: 1. Increasing airspace disease throughout the left lung possibly due to edema, pneumonia or aspiration. 2. The tip of the feeding tube is not clearly demonstrated on this study but appears to project over the left upper quadrant in the region of the body of the stomach. 3. Stable right IJ central venous catheter. 4. Persistent volume loss in the right lung apex. Assessment & Plan - Diagnosis (1) Advanced cirrhosis of liver Plan: likely due to alcohol, may have alcoholic hepatitis as well (2) Alcohol abuse Is this a current diagnosis for this admission?: Yes Plan: likely the cause of her cirrhosis but would exclude other etiology (3) Alcohol withdrawal Qualifiers: Complication of substance-induced condition: with delirium Qualified Code(s): F10.231 - Alcohol dependence with withdrawal delirium Is this a current diagnosis for this admission?: Yes Plan: likely have delirium tremens as per protocol patient will need an EGD to rule out any causes of upper GI bleeding will schedule with Propofol sedation spoke with Dr Almaraz - Time Time Spent: 50 to 70 Minutes
--- NOTE | 2018-11-08 14:41 | Operative Report ---
Operative Report DATE OF SURGERY: 11/08/18 Operative Report: The risks benefits and alternatives of the procedure explained to the patient in detail and informed consent is obtained.A GIF Olympus video scope was inserted into the patient's mouth and hypopharynx, the esophagus is identified intubated and insufflated, the scope was then advanced through the esophagus stomach and duodenum, retroflexion maneuver is done ,the esophagus stomach and first and second portions of the duodenum examined. PREOPERATIVE DIAGNOSIS: Upper GI bleed POSTOPERATIVE DIAGNOSIS: Esophageal ulceration, no active bleeding. No presence of varices noted OPERATION: Diagnostic EGD SURGEON: MARKUS TOMLIN ANESTHESIA: LMAC TISSUE REMOVED OR ALTERED: none COMPLICATIONS: None. ESTIMATED BLOOD LOSS: None INTRAOPERATIVE FINDINGS: As noted PROCEDURE: Patient tolerated procedure well. No immediate postprocedure complications are noted. Patient discharged in good condition. Patient is sent back to her room in good condition. Since there was no family member that was contacted for emergency consent was obtained Via Kalen Meza and Dr. Reyes from anesthesiology in order to be able to proceed with the procedure Discontinue patient's NG tube for now Follow as needed
[2018-11-08] MEDS: PANTOPRAZOLE SODIUM 40 MG VIAL IV SCH (15:30)
[2018-11-08] MEDS: POTASSI CL 20 MEQ/D5-1/2NS 1L 1,000 ML IV PRN (16:00)
[2018-11-08] MEDS: DILTIAZEM HCL 60 MG TABLET PO SCH ×2 (18:38→23:57)
[2018-11-08] MEDS: LACTOBACILLUS ACIDOPHILUS 250 MG TAB PO SCH (18:38)
--- NOTE | 2018-11-08 18:52 | PDOC PROGRESS REPORT ---
Subjective Progress Note for:: 11/08/18 Subjective:: Patient was seen by the bedside, she underwent EGD today, it demonstrated esophageal ulceration, no active bleeding, there was no varices demonstrated Reason For Visit: SEPSIS, UTI, AMS, ACUTE KIDNEY INJURY, DELIRIUM Physical Exam Vital Signs: Temp Pulse Resp BP Pulse Ox 98.3 F 94 18 126/76 H 98 11/08/18 14:38 11/08/18 18:42 11/08/18 14:38 11/08/18 18:42 11/08/18 18:42 Intake & Output 11/07/18 11/08/18 11/09/18 06:59 06:59 06:59 Intake Total 2300 2310 1816 Output Total 2150 1800 1000 Balance 150 510 816 Weight 86.1 kg 85.6 kg General appearance: PRESENT: no acute distress Eye exam: PRESENT: PERRLA Respiratory exam: PRESENT: rhonchi GI/Abdominal exam: PRESENT: distended Neurological exam: PRESENT: alert Results Laboratory Results: 11/06/18 12:08 11/07/18 04:30 11/03/18 22:15 Ybarra Catheter Urine Culture - Final Enterobacter Cloacae Pseudomonas Aeruginosa 09/29/18 09/29/18 09/29/18 10:44 10:44 12:59 Creatine Kinase Cancelled CK-MB (CK-2) Troponin I Cancelled 0.028 NT-Pro-B Natriuret Pep 09/29/18 09/29/18 09/29/18 12:59 15:30 15:30 Creatine Kinase 77 161 H CK-MB (CK-2) 2.69 Troponin I 0.028 NT-Pro-B Natriuret Pep 09/29/18 09/29/18 09/30/18 18:59 18:59 00:59 Creatine Kinase 201 H 197 H CK-MB (CK-2) 3.45 Troponin I 0.023 NT-Pro-B Natriuret Pep 09/30/18 10/01/18 10/03/18 00:59 04:13 04:50 Creatine Kinase CK-MB (CK-2) 2.94 Troponin I 0.021 NT-Pro-B Natriuret Pep 2270 H 3170 H 10/09/18 04:50 Creatine Kinase CK-MB (CK-2) Troponin I NT-Pro-B Natriuret Pep 630 Impressions: Head CT 10/03/18 00:00 IMPRESSION: CHRONIC CHANGES OF ATROPHY AND MICROVASCULAR ISCHEMIA. NO ACUTE PROCESS. EVIDENCE OF ACUTE STROKE: NO. Abdomen/Pelvis CT 10/23/18 00:00 IMPRESSION: Marked right pleural effusion and compressive atelectasis or obstructive atelectasis of the right lung. Large left pleural effusion. Generalized ascites. Chest CT 10/23/18 00:00 IMPRESSION: Marked right pleural effusion and compressive atelectasis or obstructive atelectasis of the right lung. Large left pleural effusion. Generalized ascites. Chest Ultrasound 10/25/18 00:08 IMPRESSION: See above. Paracentesis Ultrasound 10/25/18 12:53 IMPRESSION: Successful ultrasound-guided paracentesis KUB X-Ray 11/04/18 00:00 IMPRESSION: Nasogastric tube tip and side port in the stomach. Chest X-Ray 11/07/18 00:00 IMPRESSION: 1. Increasing airspace disease throughout the left lung possibly due to edema, pneumonia or aspiration. 2. The tip of the feeding tube is not clearly demonstrated on this study but appears to project over the left upper quadrant in the region of the body of the stomach. 3. Stable right IJ central venous catheter. 4. Persistent volume loss in the right lung apex. Assessment & Plan - Diagnosis (1) Septic shock Is this a current diagnosis for this admission?: Yes (2) UTI (urinary tract infection) Qualifiers: Urinary tract infection type: site unspecified Hematuria presence: with hematuria Qualified Code(s): N39.0 - Urinary tract infection, site not specified; R31.9 - Hematuria, unspecified Is this a current diagnosis for this admission?: Yes (3) Hypokalemia Is this a current diagnosis for this admission?: Yes (4) Hypomagnesemia Is this a current diagnosis for this admission?: Yes (5) Alcohol abuse Is this a current diagnosis for this admission?: Yes (6) Metabolic encephalopathy Is this a current diagnosis for this admission?: Yes (7) Hyperammonemia Is this a current diagnosis for this admission?: Yes (8) Alcohol withdrawal Qualifiers: Complication of substance-induced condition: with delirium Qualified Code(s): F10.231 - Alcohol dependence with withdrawal delirium Is this a current diagnosis for this admission?: Yes (9) Respiratory failure with hypoxia and hypercapnia Qualifiers: Chronicity: acute Qualified Code(s): J96.01 - Acute respiratory failure with hypoxia; J96.02 - Acute respiratory failure with hypercapnia Is this a current diagnosis for this admission?: Yes (10) Nosocomial pneumonia Is this a current diagnosis for this admission?: Yes (11) Hypotension Qualifiers: Hypotension type: unspecified hypotension type Qualified Code(s): I95.9 - Hypotension, unspecified Is this a current diagnosis for this admission?: Yes (12) Gastroparesis Is this a current diagnosis for this admission?: Yes (13) Acute kidney injury Is this a current diagnosis for this admission?: Yes (14) DIC (disseminated intravascular coagulation) Is this a current diagnosis for this admission?: Yes (15) Hypercalcemia Is this a current diagnosis for this admission?: Yes (16) Paroxysmal atrial fibrillation with RVR Is this a current diagnosis for this admission?: Yes (17) Upper GI bleed Is this a current diagnosis for this admission?: Yes (18) Esophageal ulceration Qualifiers: Esophageal ulcer bleeding: without bleeding Qualified Code(s): K22.10 - Ulcer of esophagus without bleeding Is this a current diagnosis for this admission?: Yes Plan: Patient presently on somatostatin infusion, this will be discontinued, patient to be started on intravenous Protonix, DC NG tube start clear liquid diet (19) Ascites Qualifiers: Ascites type: due to alcoholic hepatitis Qualified Code(s): K70.11 - Alcoholic hepatitis with ascites Is this a current diagnosis for this admission?: Yes Plan: Abdominal paracentesis ordered
[2018-11-08] MEDS: ERTAPENEM SODIUM 0.5 GM in NORMAL SALINE 50 ML IV SCH (21:49)
[2018-11-08 22:39] LABS: INTERNATIONAL RATION (INR) 1.44; PROTHROMBIN TIME 18.3 SEC (11.4-15.4)
[2018-11-08 22:40] LABS: PARTIAL THROMBOPLASTIN TIME 43.1 SEC (23.5-35.8)
[2018-11-09] MEDS: INSULIN LISPRO 100 UNIT/ML 3 ML VIAL SUBCUT SCH ×5 (00:13→21:56)
[2018-11-09] MEDS: IPRATROPIUM/ALBUTEROL 0.5-2.5 MG/3 ML AMPUL NEB SCH ×4 (02:05→20:18)
[2018-11-09] MEDS: LACTOBACILLUS ACIDOPHILUS 250 MG TAB PO SCH ×2 (06:23→17:34)
[2018-11-09] MEDS: DILTIAZEM HCL 60 MG TABLET PO SCH ×3 (06:23→17:34)
[2018-11-09] MEDS: ACETYLCYSTEINE 20% SOLN 800 MG/4 ML VIAL.NEB NEB SCH ×2 (08:01→20:18)
[2018-11-09] MEDS: PANTOPRAZOLE SODIUM 40 MG VIAL IV SCH (09:03)
[2018-11-09] MEDS: POTASSI CL 20 MEQ/D5-1/2NS 1L 1,000 ML IV PRN (09:07)
[2018-11-09] MEDS: NYSTATIN TOPICAL POWDER 15 GM TP SCH ×2 (10:15→17:41)
[2018-11-09 12:20] LABS: ABSOLUTE BASOPHILS # (AUTO) 0.2 10^3/uL (0.0-0.2); ABSOLUTE EOSINOPHILS # (AUTO) 0.4 10^3/uL (0.0-0.6); ABSOLUTE LYMPHOCYTES (AUTO) 1.4 10^3/uL (0.5-4.7); ABSOLUTE NEUT (AUTO) 6.9 10^3/uL (1.7-8.2); BASOPHILS % (AUTO) 1.5 % (0-2); EOSINOPHILS % (AUTO) 4.4 % (0-6); HEMATOCRIT 24.9 % (36.0-47.0); HEMOGLOBIN 8.2 g/dL (12.0-15.5); LYMPHOCYTES % (AUTO) 13.9 % (13-45); MEAN CORPUSCULAR HEMOGLOBIN 31.9 pg (27.0-33.4); MEAN CORPUSCULAR VOLUME 97 fl (80-97); MONOCYTES % (AUTO) 10.4 % (3-13); PLATELET COUNT 172 10^3/uL (150-450); RED BLOOD COUNT 2.58 10^6/uL (3.72-5.28); RED CELL DISTRIBUTION WIDTH 22.4 % (11.5-14.0); SEGMENTED NEUTROPHILS % (AUTO) 69.8 % (42-78); TOTAL CELLS COUNTED % (AUTO) 100 %; WHITE BLOOD COUNT 9.9 10^3/uL (4.0-10.5)
[2018-11-09 12:42] LABS: ALANINE AMINOTRANSFERASE 19 U/L (9-52); ALBUMIN 2.7 g/dL (3.5-5.0); ALKALINE PHOSPHATASE 82 U/L (38-126); ANION GAP 6 (5-19); ASPARTATE AMINO TRANSFERASE 35 U/L (14-36); BILIRUBIN,DIRECT 2.2 mg/dL (0.0-0.4); BILIRUBIN,TOTAL 2.8 mg/dL (0.2-1.3); BLOOD UREA NITROGEN 40 mg/dL (7-20); CALCIUM 8.8 mg/dL (8.4-10.2); CARBON DIOXIDE 33 mmol/L (22-30); CHLORIDE 104 mmol/L (98-107); GLUCOSE 144 mg/dL (75-110); POTASSIUM 3.7 mmol/L (3.6-5.0); SODIUM 142.6 mmol/L (137-145); TOTAL PROTEIN 6.5 g/dL (6.3-8.2)
--- NOTE | 2018-11-09 16:46 | PDOC PROGRESS REPORT ---
Subjective Progress Note for:: 11/09/18 Subjective:: Patient was seen by the bedside, she has tremendous edema affecting the extremities with ascites, the ascites is probably from portal hypertension, I requested for abdominal paracentesis yesterday this is not done yet. She has stasis dermatitis of the abdominal wALL extremities, she will be given a dose of furosemide 80 mg Reason For Visit: SEPSIS, UTI, AMS, ACUTE KIDNEY INJURY, DELIRIUM Physical Exam Vital Signs: Temp Pulse Resp BP Pulse Ox 97.8 F 91 20 109/68 90 L 11/09/18 15:17 11/09/18 15:17 11/09/18 15:17 11/09/18 15:17 11/09/18 15:17 Intake & Output 11/08/18 11/09/18 11/10/18 06:59 06:59 06:59 Intake Total 2310 2416 1236 Output Total 1800 1625 250 Balance 510 791 986 Weight 85.6 kg 88.4 kg General appearance: PRESENT: no acute distress Eye exam: PRESENT: PERRLA GI/Abdominal exam: PRESENT: ascites, distended Extremities exam: PRESENT: pedal edema, other - She has extremity edema up to the groin with stasis dermatitis Neurological exam: PRESENT: alert Results Laboratory Results: 11/09/18 11:50 11/09/18 11:50 11/09/18 11/09/18 11/09/18 06:00 11:50 11:50 WBC 9.9 RBC 2.58 L Hgb 8.2 L Hct 24.9 L MCV 97 MCH 31.9 MCHC 33.0 RDW 22.4 H Plt Count 172 Seg Neutrophils % 69.8 Lymphocytes % 13.9 Monocytes % 10.4 Eosinophils % 4.4 Basophils % 1.5 Absolute Neutrophils 6.9 Absolute Lymphocytes 1.4 Absolute Monocytes 1.0 Absolute Eosinophils 0.4 Absolute Basophils 0.2 Sodium 142.6 Potassium 3.7 Chloride 104 Carbon Dioxide 33 H Anion Gap 6 BUN 40 H Creatinine 2.48 H Est GFR ( Amer) 24 L Est GFR (Non-Af Amer) 20 L Glucose 144 H Calcium 8.8 Total Bilirubin 2.8 H AST 35 ALT 19 Alkaline Phosphatase 82 Total Protein 6.5 Albumin 2.6 L 2.7 L 09/29/18 09/29/18 09/29/18 10:44 10:44 12:59 Creatine Kinase Cancelled CK-MB (CK-2) Troponin I Cancelled 0.028 NT-Pro-B Natriuret Pep 09/29/18 09/29/18 09/29/18 12:59 15:30 15:30 Creatine Kinase 77 161 H CK-MB (CK-2) 2.69 Troponin I 0.028 NT-Pro-B Natriuret Pep 09/29/18 09/29/18 09/30/18 18:59 18:59 00:59 Creatine Kinase 201 H 197 H CK-MB (CK-2) 3.45 Troponin I 0.023 NT-Pro-B Natriuret Pep 09/30/18 10/01/18 10/03/18 00:59 04:13 04:50 Creatine Kinase CK-MB (CK-2) 2.94 Troponin I 0.021 NT-Pro-B Natriuret Pep 2270 H 3170 H 10/09/18 04:50 Creatine Kinase CK-MB (CK-2) Troponin I NT-Pro-B Natriuret Pep 630 Impressions: Head CT 10/03/18 00:00 IMPRESSION: CHRONIC CHANGES OF ATROPHY AND MICROVASCULAR ISCHEMIA. NO ACUTE PROCESS. EVIDENCE OF ACUTE STROKE: NO. Abdomen/Pelvis CT 10/23/18 00:00 IMPRESSION: Marked right pleural effusion and compressive atelectasis or obstructive atelectasis of the right lung. Large left pleural effusion. Generalized ascites. Chest CT 10/23/18 00:00 IMPRESSION: Marked right pleural effusion and compressive atelectasis or obstructive atelectasis of the right lung. Large left pleural effusion. Generalized ascites. Chest Ultrasound 10/25/18 00:08 IMPRESSION: See above. Paracentesis Ultrasound 10/25/18 12:53 IMPRESSION: Successful ultrasound-guided paracentesis KUB X-Ray 11/04/18 00:00 IMPRESSION: Nasogastric tube tip and side port in the stomach. Chest X-Ray 11/07/18 00:00 IMPRESSION: 1. Increasing airspace disease throughout the left lung possibly due to edema, pneumonia or aspiration. 2. The tip of the feeding tube is not clearly demonstrated on this study but appears to project over the left upper quadrant in the region of the body of the stomach. 3. Stable right IJ central venous catheter. 4. Persistent volume loss in the right lung apex. Assessment & Plan - Diagnosis (1) Septic shock Is this a current diagnosis for this admission?: Yes (2) UTI (urinary tract infection) Qualifiers: Urinary tract infection type: site unspecified Hematuria presence: with hematuria Qualified Code(s): N39.0 - Urinary tract infection, site not specified; R31.9 - Hematuria, unspecified Is this a current diagnosis for this admission?: Yes (3) Hypokalemia Is this a current diagnosis for this admission?: Yes (4) Hypomagnesemia Is this a current diagnosis for this admission?: Yes (5) Alcohol abuse Is this a current diagnosis for this admission?: Yes (6) Metabolic encephalopathy Is this a current diagnosis for this admission?: Yes (7) Hyperammonemia Is this a current diagnosis for this admission?: Yes (8) Alcohol withdrawal Qualifiers: Complication of substance-induced condition: with delirium Qualified Code(s): F10.231 - Alcohol dependence with withdrawal delirium Is this a current diagnosis for this admission?: Yes (9) Respiratory failure with hypoxia and hypercapnia Qualifiers: Chronicity: acute Qualified Code(s): J96.01 - Acute respiratory failure with hypoxia; J96.02 - Acute respiratory failure with hypercapnia Is this a current diagnosis for this admission?: Yes (10) Nosocomial pneumonia Is this a current diagnosis for this admission?: Yes (11) Hypotension Qualifiers: Hypotension type: unspecified hypotension type Qualified Code(s): I95.9 - Hypotension, unspecified Is this a current diagnosis for this admission?: Yes (12) Gastroparesis Is this a current diagnosis for this admission?: Yes (13) Acute kidney injury Is this a current diagnosis for this admission?: Yes (14) DIC (disseminated intravascular coagulation) Is this a current diagnosis for this admission?: Yes (15) Hypercalcemia Is this a current diagnosis for this admission?: Yes (16) Paroxysmal atrial fibrillation with RVR Is this a current diagnosis for this admission?: Yes (17) Upper GI bleed Is this a current diagnosis for this admission?: Yes (18) Esophageal ulceration Qualifiers: Esophageal ulcer bleeding: without bleeding Qualified Code(s): K22.10 - Ulcer of esophagus without bleeding Is this a current diagnosis for this admission?: Yes (19) Ascites Qualifiers: Ascites type: due to alcoholic hepatitis Qualified Code(s): K70.11 - Alcoholic hepatitis with ascites Is this a current diagnosis for this admission?: Yes Plan: ,Discontinue IV fluid, she is just third spacing, give bolus furosemide 80 mg x1 dose, start furosemide 40 mg p.o. twice daily, start Aldactone 50 mg p.o. twice daily
[2018-11-09] MEDS ORDERED: FUROSEMIDE INJ/PF 40 MG/4 ML SDV IV ONE (17:00)
[2018-11-09] MEDS: SPIRONOLACTONE 25 MG TABLET PO SCH (17:34)
--- NOTE | 2018-11-09 21:18 | Operative Report ---
Bedside Procedure - History of Present Illness Indication for Procedure: sepsis, need for plasmapheresis Date: 10/05/18 Surgeon: DACIA PARRA - Central Line Right Internal jugular Time completed: 21:14 Consent obtained: Yes Central line pre-insertion: Sterile PPE donned Central line size (Fr.): 16 Central line lumen type: Triple Anesthetic type: 1% Lidocaine mL's of anesthesia: 2 Ultrasound guided: No CM at insertion site: 15 Line secured with sutures: Yes Central line post-insertion: Blood return from lumens, Biopatch applied, Sutured, Sterile dressing applied, Other - line changed over a wire
[2018-11-09] MEDS: ERTAPENEM SODIUM 0.5 GM in NORMAL SALINE 50 ML IV SCH (21:55)
[2018-11-10] MEDS: DILTIAZEM HCL 60 MG TABLET PO SCH ×5 (01:00→23:50)
[2018-11-10] MEDS: IPRATROPIUM/ALBUTEROL 0.5-2.5 MG/3 ML AMPUL NEB SCH ×4 (01:50→19:58)
[2018-11-10] MEDS: LACTOBACILLUS ACIDOPHILUS 250 MG TAB PO SCH ×2 (05:43→17:33)
[2018-11-10] MEDS: SPIRONOLACTONE 25 MG TABLET PO SCH ×2 (05:44→17:33)
[2018-11-10 06:50] LABS: ABSOLUTE EOSINOPHILS # (AUTO) 0.4 10^3/uL (0.0-0.6); ABSOLUTE LYMPHOCYTES (AUTO) 1.6 10^3/uL (0.5-4.7); ABSOLUTE NEUT (AUTO) 7.7 10^3/uL (1.7-8.2); BASOPHILS % (AUTO) 0.4 % (0-2); EOSINOPHILS % (AUTO) 3.7 % (0-6); HEMATOCRIT 24.6 % (36.0-47.0); HEMOGLOBIN 8.3 g/dL (12.0-15.5); LYMPHOCYTES % (AUTO) 14.8 % (13-45); MEAN CORPUSCULAR HGB CONC 33.8 g/dL (32.0-36.0); MEAN CORPUSCULAR VOLUME 98 fl (80-97); MONOCYTES % (AUTO) 9.4 % (3-13); PLATELET COUNT 185 10^3/uL (150-450); RED BLOOD COUNT 2.52 10^6/uL (3.72-5.28); RED CELL DISTRIBUTION WIDTH 22.2 % (11.5-14.0); SEGMENTED NEUTROPHILS % (AUTO) 71.7 % (42-78); TOTAL CELLS COUNTED % (AUTO) 100 %; WHITE BLOOD COUNT 10.7 10^3/uL (4.0-10.5)
[2018-11-10 07:09] LABS: ALANINE AMINOTRANSFERASE 15 U/L (9-52); ALBUMIN 2.7 g/dL (3.5-5.0); ALKALINE PHOSPHATASE 80 U/L (38-126); ANION GAP 10 (5-19); ASPARTATE AMINO TRANSFERASE 30 U/L (14-36); BILIRUBIN,DIRECT 2.1 mg/dL (0.0-0.4); BILIRUBIN,TOTAL 2.6 mg/dL (0.2-1.3); BLOOD UREA NITROGEN 36 mg/dL (7-20); CALCIUM 8.7 mg/dL (8.4-10.2); CARBON DIOXIDE 30 mmol/L (22-30); CHLORIDE 102 mmol/L (98-107); GLUCOSE 114 mg/dL (75-110); POTASSIUM 3.5 mmol/L (3.6-5.0); SODIUM 141.7 mmol/L (137-145); TOTAL PROTEIN 6.8 g/dL (6.3-8.2)
[2018-11-10] MEDS: ACETYLCYSTEINE 20% SOLN 800 MG/4 ML VIAL.NEB NEB SCH ×2 (08:48→19:58)
[2018-11-10] MEDS: INSULIN LISPRO 100 UNIT/ML 3 ML VIAL SUBCUT SCH ×4 (08:57→23:50)
--- NOTE | 2018-11-10 09:03 | ST Inp Modified Barium Swallow ---
Medical Diagnosis - Medical Diagnoses Medical Diagnosis Description & ICD-10 Code(s): septic shock, dysphagia ST Inpatient [facility] [place] - General Date: 11/10/18 - History History Obtained From: Other -: Medical - per EMR: patient admitted 09/29/18 with altered mental status over 3 days. Patient was intubated 10/05-10/27, then reintubated 10/26-10/27. Patient had NG tube for nutrition/hydration. On 11/06, patient note states that there was a GI bleed, requiring patient to be NPO. Patient now on liquid diet, nursing reports some coughing with liquids. Prior medical history includes pneumonia, septic maira ck, COPD, cirrhosis, alcoholism. Medications: Medications Reviewed Allergies: No known allergies - Subjective Current Nutritional Means: PO - liquid diet due to GI Current Symptoms: other - high risk of aspiration per medical history Pain: Patient reports, 0/5 - some grimacing during movement, not at rest - Objective Assessment: Upright, Left Lateral - patient in modified chair, nasal canula with 4 lts O2. - Food Trials Food Trials Used: Thin liquids, Pureed, Regular The Patient: Required Assist - Assessment Labial Function: Within Normal Limits Lingual Function: Within Normal Limits Mandibular Function: Within Normal Limits Dentition: Partial Velo-Pharyngeal Function: Unremarkable - Pharyngeal Stage Initiation of Pharyngeal Stage: Delayed - triggered at valleculae Decreased Laryngeal Elevation: No Reduced Velo-Pharyngeal Closure: no Reduced Pressure Generation: No Reduced Tongue Base Retraction: No Pre-Swallowing Pooling in Valleculae: Mild Pre-Swallowing Pooling in Pyriforms: None Reduced Thyro-Hyiod Approximation: No Reduced Epiglottic Excursion: No Reduced Pharyngeal Peristalsis: No Multiple Swallows With: Cleared w/ Dry Swallow Post Swallow Residuals in Valleculae: Mild Post Swallow Residuals in Pyriforms: None Pahryngeal Stage Comments: mild discoordination seen with straw sips of liquid - Esophageal Stage Cricophageal Function: Normal - Impression/Summary Laryngeal Penetration: No Tracheal Aspiration: no Patient Presents With: Normal swallow at eval Risk of Aspiration: Minimal - Recommendations NPO: no Regular Diet: Yes - advance as tolerated Dysphagia Therapy with PEN RIDER: No Recommended Techniques: Fully Upright During Meal, Small Bites and Sips Supervision: requires assistance Other Recommendations: Recommend avoiding straws due to coordination. Swallowing mechanism functional for regular diet, advance diet as tolerated per GI/physician. - Time Total Time: 20 Total Timed Minutes: 20
--- NOTE | 2018-11-10 09:17 | RADIOLOGY REPORT (SQ) ---
EXAM DESCRIPTION: MARY KAY SWALLOW COMPLETED DATE/TIME: 11/10/2018 9:03 am REASON FOR STUDY: Possible aspirations COMPARISON: None. TECHNIQUE: Videofluoroscopic swallowing examination was performed in conjunction with speech patholo gy. Videofluoroscopic imaging was obtained and reviewed and these are the findings: RADIATION DOSE: Fluoro time 1.5 minutes 1 images saved to PACS. LIMITATIONS: None FINDINGS: The patient was brought into the fluoro room and placed upright on a modified barium swall ow chair. The patient was then given multiple consistencies mixed with barium to swallow under live fluoroscopic video guidance. According to the Speech Pathologist there was no penetration or aspirat ion. Please refer to the speech pathology report for further details. IMPRESSION: NO EVIDENCE OF PENETRATION OR ASPIRATION. PLEASE SEE SPEECH PATHOLOGIST REPORT FOR OTHER FINDINGS AND RECOMMENDATIONS. COMMENT: None Quality ID [id number]: Final reports for procedures using fluoroscopy that document radiation exposure leah roula, or exposure time and number of fluorographic images (if radiation exposure indices are not avail able) TECHNICAL DOCUMENTATION: JOB ID: [id number] [employer]- All Rights Reserved Reading location - IP/workstation name: [id number]
--- NOTE | 2018-11-10 09:31 | RADIOLOGY REPORT (SQ) ---
EXAM DESCRIPTION: U/S ABDOMEN LIMITED W/O DOP COMPLETED DATE/TIME: 11/10/2018 9:17 am REASON FOR STUDY: ascities COMPARISON: 10/25/2018 TECHNIQUE: Dynamic and static grayscale images acquired of the abdomen and recorded on PACS. Additio nal selected color Doppler and spectral images recorded. LIMITATIONS: None. FINDINGS: Dilated, fluid-filled bowel loops identified within a modest volume of ascites about the a bdomen. There is no ascites pocket sufficient for paracentesis. Per technologist report, paracentes is deferred at this time. IMPRESSION: Dilated, fluid-filled bowel loops identified within a modest volume of ascites about the abdomen. There is no ascites pocket sufficient for paracentesis. Per technologist report, paracentes is deferred at this time. TECHNICAL DOCUMENTATION: JOB ID: [id number] [employer]- All Rights Reserved Reading location - IP/workstation name: [id number]
[2018-11-10] MEDS: PANTOPRAZOLE SODIUM 40 MG VIAL IV SCH (09:55)
[2018-11-10] MEDS: FUROSEMIDE 40 MG TABLET PO SCH ×2 (09:55→17:33)
[2018-11-10] MEDS: NYSTATIN TOPICAL POWDER 15 GM TP SCH ×2 (09:56→17:34)
--- NOTE | 2018-11-10 19:10 | PDOC PROGRESS REPORT ---
Subjective Progress Note for:: 11/10/18 Subjective:: Patient was seen today by the bedside she is alert and responsive this is the best clinical condition I have seen this patient since admission, she passed the modified barium swallow test. She went down to radiology for abdominal paracentesis but the ultrasound demonstrated minimal ascites fluid so no abdominal paracentesis was done. The platelet count is back to normal ,patient is slowly showing signs of improvement, the Ybarra catheter will be discontinued, she will start regular diet she will hopefully be transferred to long term for rehabilitation next week. She was admitted on September 29, 2018, roughly 6 weeks in the hospital Reason For Visit: SEPSIS, UTI, AMS, ACUTE KIDNEY INJURY, DELIRIUM Physical Exam Vital Signs: Temp Pulse Resp BP Pulse Ox 98.6 F 83 18 106/69 100 11/10/18 16:35 11/10/18 16:35 11/10/18 16:35 11/10/18 16:35 11/10/18 16:35 Intake & Output 11/09/18 11/10/18 11/11/18 06:59 06:59 06:59 Intake Total 2416 2849 Output Total 1625 2425 Balance 791 424 Weight 88.4 kg 84.1 kg General appearance: PRESENT: no acute distress Eye exam: PRESENT: PERRLA, scleral icterus Respiratory exam: PRESENT: clear to auscultation dawna Cardiovascular exam: PRESENT: +S1, +S2 GI/Abdominal exam: PRESENT: distended, soft Neurological exam: PRESENT: alert Results Laboratory Results: 11/10/18 05:50 11/10/18 05:50 11/10/18 11/10/18 05:50 05:50 WBC 10.7 H RBC 2.52 L Hgb 8.3 L Hct 24.6 L MCV 98 H MCH 33.0 MCHC 33.8 RDW 22.2 H Plt Count 185 Seg Neutrophils % 71.7 Lymphocytes % 14.8 Monocytes % 9.4 Eosinophils % 3.7 Basophils % 0.4 Absolute Neutrophils 7.7 Absolute Lymphocytes 1.6 Absolute Monocytes 1.0 Absolute Eosinophils 0.4 Absolute Basophils 0.0 Sodium 141.7 Potassium 3.5 L Chloride 102 Carbon Dioxide 30 Anion Gap 10 BUN 36 H Creatinine 2.61 H Est GFR ( Amer) 23 L Est GFR (Non-Af Amer) 19 L Glucose 114 H Calcium 8.7 Total Bilirubin 2.6 H AST 30 ALT 15 Alkaline Phosphatase 80 Total Protein 6.8 Albumin 2.7 L 09/29/18 09/29/18 09/29/18 10:44 10:44 12:59 Creatine Kinase Cancelled CK-MB (CK-2) Troponin I Cancelled 0.028 NT-Pro-B Natriuret Pep 09/29/18 09/29/18 09/29/18 12:59 15:30 15:30 Creatine Kinase 77 161 H CK-MB (CK-2) 2.69 Troponin I 0.028 NT-Pro-B Natriuret Pep 09/29/18 09/29/18 09/30/18 18:59 18:59 00:59 Creatine Kinase 201 H 197 H CK-MB (CK-2) 3.45 Troponin I 0.023 NT-Pro-B Natriuret Pep 09/30/18 10/01/18 10/03/18 00:59 04:13 04:50 Creatine Kinase CK-MB (CK-2) 2.94 Troponin I 0.021 NT-Pro-B Natriuret Pep 2270 H 3170 H 10/09/18 04:50 Creatine Kinase CK-MB (CK-2) Troponin I NT-Pro-B Natriuret Pep 630 Impressions: Head CT 10/03/18 00:00 IMPRESSION: CHRONIC CHANGES OF ATROPHY AND MICROVASCULAR ISCHEMIA. NO ACUTE PROCESS. EVIDENCE OF ACUTE STROKE: NO. Abdomen/Pelvis CT 10/23/18 00:00 IMPRESSION: Marked right pleural effusion and compressive atelectasis or obstructive atelectasis of the right lung. Large left pleural effusion. Generalized ascites. Chest CT 10/23/18 00:00 IMPRESSION: Marked right pleural effusion and compressive atelectasis or obstructive atelectasis of the right lung. Large left pleural effusion. Generalized ascites. Chest Ultrasound 10/25/18 00:08 IMPRESSION: See above. Paracentesis Ultrasound 10/25/18 12:53 IMPRESSION: Successful ultrasound-guided paracentesis KUB X-Ray 11/04/18 00:00 IMPRESSION: Nasogastric tube tip and side port in the stomach. Chest X-Ray 11/07/18 00:00 IMPRESSION: 1. Increasing airspace disease throughout the left lung possibly due to edema, pneumonia or aspiration. 2. The tip of the feeding tube is not clearly demonstrated on this study but appears to project over the left upper quadrant in the region of the body of the stomach. 3. Stable right IJ central venous catheter. 4. Persistent volume loss in the right lung apex. Abdomen Ultrasound 11/10/18 00:00 IMPRESSION: Dilated, fluid-filled bowel loops identified within a modest volume of ascites about the abdomen. There is no ascites pocket sufficient for paracentesis. Per technologist report, paracentesis deferred at this time. Modified Barium Swallow 11/10/18 08:34 IMPRESSION: NO EVIDENCE OF PENETRATION OR ASPIRATION. PLEASE SEE SPEECH PATHOLOGIST REPORT FOR OTHER FINDINGS AND RECOMMENDATIONS. Assessment & Plan - Diagnosis (1) Septic shock Is this a current diagnosis for this admission?: Yes Plan: Resolved DC IV ertapenem (2) UTI (urinary tract infection) Qualifiers: Urinary tract infection type: site unspecified Hematuria presence: with hematuria Qualified Code(s): N39.0 - Urinary tract infection, site not specified; R31.9 - Hematuria, unspecified Is this a current diagnosis for this admission?: Yes (3) Hypokalemia Is this a current diagnosis for this admission?: Yes (4) Hypomagnesemia Is this a current diagnosis for this admission?: Yes (5) Alcohol abuse Is this a current diagnosis for this admission?: Yes (6) Metabolic encephalopathy Is this a current diagnosis for this admission?: Yes (7) Hyperammonemia Is this a current diagnosis for this admission?: Yes (8) Alcohol withdrawal Qualifiers: Complication of substance-induced condition: with delirium Qualified Code(s): F10.231 - Alcohol dependence with withdrawal delirium Is this a current diagnosis for this admission?: Yes (9) Respiratory failure with hypoxia and hypercapnia Qualifiers: Chronicity: acute Qualified Code(s): J96.01 - Acute respiratory failure with hypoxia; J96.02 - Acute respiratory failure with hypercapnia Is this a current diagnosis for this admission?: Yes (10) Nosocomial pneumonia Is this a current diagnosis for this admission?: Yes (11) Hypotension Qualifiers: Hypotension type: unspecified hypotension type Qualified Code(s): I95.9 - Hypotension, unspecified Is this a current diagnosis for this admission?: Yes Plan: Resolved (12) Gastroparesis Is this a current diagnosis for this admission?: Yes (13) Acute kidney injury Is this a current diagnosis for this admission?: Yes (14) DIC (disseminated intravascular coagulation) Is this a current diagnosis for this admission?: Yes (15) Hypercalcemia Is this a current diagnosis for this admission?: Yes (16) Paroxysmal atrial fibrillation with RVR Is this a current diagnosis for this admission?: Yes (17) Upper GI bleed Is this a current diagnosis for this admission?: Yes (18) Esophageal ulceration Qualifiers: Esophageal ulcer bleeding: without bleeding Qualified Code(s): K22.10 - Ulcer of esophagus without bleeding Is this a current diagnosis for this admission?: Yes (19) Ascites Qualifiers: Ascites type: due to alcoholic hepatitis Qualified Code(s): K70.11 - Alcoholic hepatitis with ascites Is this a current diagnosis for this admission?: Yes - Plan Summary Plan Summary: Discontinue Ybarra catheter, PT consultation
[2018-11-11] MEDS: IPRATROPIUM/ALBUTEROL 0.5-2.5 MG/3 ML AMPUL NEB SCH ×4 (02:19→20:01)
[2018-11-11] MEDS: SPIRONOLACTONE 25 MG TABLET PO SCH ×2 (06:38→17:31)
[2018-11-11] MEDS: LACTOBACILLUS ACIDOPHILUS 250 MG TAB PO SCH ×2 (06:38→17:31)
[2018-11-11] MEDS: DILTIAZEM HCL 60 MG TABLET PO SCH ×3 (06:39→17:32)
[2018-11-11] MEDS: ACETYLCYSTEINE 20% SOLN 800 MG/4 ML VIAL.NEB NEB SCH ×2 (08:19→20:01)
[2018-11-11] MEDS: INSULIN LISPRO 100 UNIT/ML 3 ML VIAL SUBCUT SCH ×4 (09:05→22:04)
[2018-11-11] MEDS: PANTOPRAZOLE SODIUM 40 MG VIAL IV SCH (10:12)
[2018-11-11] MEDS: FUROSEMIDE 40 MG TABLET PO SCH ×2 (10:13→17:31)
[2018-11-11] MEDS: NYSTATIN TOPICAL POWDER 15 GM TP SCH ×2 (12:24→17:29)
--- NOTE | 2018-11-11 12:40 | PDOC PROGRESS REPORT ---
Subjective Progress Note for:: 11/11/18 Subjective:: Patient has a long-standing history of the hospitalizations due to the alcoholism's respiratory distressed alcohol withdrawal GI bleed cirrhosis of the liver and multiple medical issues currently out of the ICU feeling better Patient is alert awake eating the breakfast According to the . Kalen was not and when I saw her last improved Denied any complaints No nursing concerns today Reason For Visit: SEPSIS, UTI, AMS, ACUTE KIDNEY INJURY, DELIRIUM Physical Exam Vital Signs: Temp Pulse Resp BP Pulse Ox 98.3 F 92 20 123/70 96 11/11/18 07:42 11/11/18 08:20 11/11/18 08:20 11/11/18 07:42 11/11/18 08:20 Intake & Output 11/10/18 11/11/18 11/12/18 06:59 06:59 06:59 Intake Total 2849 642 Output Total 2425 400 Balance 424 242 Weight 84.1 kg 81.9 kg General appearance: PRESENT: no acute distress Eye exam: PRESENT: PERRLA Mouth exam: PRESENT: neck supple Respiratory exam: PRESENT: clear to auscultation dawna Cardiovascular exam: PRESENT: +S1, +S2 GI/Abdominal exam: PRESENT: normal bowel sounds, soft Neurological exam: PRESENT: alert, awake, oriented to person Results Laboratory Results: 11/10/18 05:50 11/10/18 05:50 09/29/18 09/29/18 09/29/18 10:44 10:44 12:59 Creatine Kinase Cancelled CK-MB (CK-2) Troponin I Cancelled 0.028 NT-Pro-B Natriuret Pep 09/29/18 09/29/18 09/29/18 12:59 15:30 15:30 Creatine Kinase 77 161 H CK-MB (CK-2) 2.69 Troponin I 0.028 NT-Pro-B Natriuret Pep 09/29/18 09/29/18 09/30/18 18:59 18:59 00:59 Creatine Kinase 201 H 197 H CK-MB (CK-2) 3.45 Troponin I 0.023 NT-Pro-B Natriuret Pep 09/30/18 10/01/18 10/03/18 00:59 04:13 04:50 Creatine Kinase CK-MB (CK-2) 2.94 Troponin I 0.021 NT-Pro-B Natriuret Pep 2270 H 3170 H 10/09/18 04:50 Creatine Kinase CK-MB (CK-2) Troponin I NT-Pro-B Natriuret Pep 630 Impressions: Head CT 10/03/18 00:00 IMPRESSION: CHRONIC CHANGES OF ATROPHY AND MICROVASCULAR ISCHEMIA. NO ACUTE PROCESS. EVIDENCE OF ACUTE STROKE: NO. Abdomen/Pelvis CT 10/23/18 00:00 IMPRESSION: Marked right pleural effusion and compressive atelectasis or obstructive atelectasis of the right lung. Large left pleural effusion. Generalized ascites. Chest CT 10/23/18 00:00 IMPRESSION: Marked right pleural effusion and compressive atelectasis or obstru ctive atelectasis of the right lung. Large left pleural effusion. Generalized ascites. Chest Ultrasound 10/25/18 00:08 IMPRESSION: See above. Paracentesis Ultrasound 10/25/18 12:53 IMPRESSION: Successful ultrasound-guided paracentesis KUB X-Ray 11/04/18 00:00 IMPRESSION: Nasogastric tube tip and side port in the stomach. Chest X-Ray 11/07/18 00:00 IMPRESSION: 1. Increasing airspace disease throughout the left lung possibly due to edema, pneumonia or aspiration. 2. The tip of the feeding tube is not clearly demonstrated on this study but appears to project over the left upper quadrant in the region of the body of the stomach. 3. Stable right IJ central venous catheter. 4. Persistent volume loss in the right lung apex. Abdomen Ultrasound 11/10/18 00:00 IMPRESSION: Dilated, fluid-filled bowel loops identified within a modest volume of ascites about the abdomen. There is no ascites pocket sufficient for paracentesis. Per technologist report, paracentesis deferred at this time. Modified Barium Swallow 11/10/18 08:34 IMPRESSION: NO EVIDENCE OF PENETRATION OR ASPIRATION. PLEASE SEE SPEECH PATHOLOGIST REPORT FOR OTHER FINDINGS AND RECOMMENDATIONS. Assessment & Plan - Diagnosis (1) Hypokalemia Is this a current diagnosis for this admission?: Yes (2) Hypomagnesemia Is this a current diagnosis for this admission?: Yes (3) Alcoholic liver disease Is this a current diagnosis for this admission?: Yes Plan: Currently stable (4) Anemia Qualifiers: Anemia type: other cause Other causes of anemia: chronic disease, other Qualified Code(s): D63.8 - Anemia in other chronic diseases classified elsewhere Is this a current diagnosis for this admission?: Yes (5) Alcohol abuse Is this a current diagnosis for this admission?: Yes (6) UTI (urinary tract infection) Qualifiers: Urinary tract infection type: site unspecified Hematuria presence: with hematuria Qualified Code(s): N39.0 - Urinary tract infection, site not specified; R31.9 - Hematuria, unspecified Is this a current diagnosis for this admission?: Yes (7) Respiratory failure Is this a current diagnosis for this admission?: Yes Plan: Status post extubated (8) Renal failure Qualifiers: Chronic kidney disease stage: on chronic dialysis Is this a current diagnosis for this admission?: Yes Plan: Patients require a dialysis in this hospital admissions currently not require any dialysis (9) Alcohol withdrawal Qualifiers: Complication of substance-induced condition: with delirium Qualified Code(s): F10.231 - Alcohol dependence with withdrawal delirium Is this a current diagnosis for this admission?: Yes Plan: Currently resolved (10) Septic shock Is this a current diagnosis for this admission?: Yes Plan: Currently resolved (11) Thrombocytopenia Is this a current diagnosis for this admission?: Yes (12) Gastric ulcer Qualifiers: Gastric ulcer chronicity: chronic Is this a current diagnosis for this admission?: Yes - Time Time Spent with patient: 25-34 minutes Medications reviewed and adjusted accordingly: Yes Anticipated discharge: SNF Within: Other - Plan Summary Plan Summary: Continues to current medications We will check the blood work in the morning
[2018-11-12] MEDS: DILTIAZEM HCL 60 MG TABLET PO SCH ×4 (00:48→17:38)
[2018-11-12] MEDS: IPRATROPIUM/ALBUTEROL 0.5-2.5 MG/3 ML AMPUL NEB SCH ×4 (02:12→19:43)
[2018-11-12] MEDS: SPIRONOLACTONE 25 MG TABLET PO SCH ×2 (05:32→17:38)
[2018-11-12] MEDS: LACTOBACILLUS ACIDOPHILUS 250 MG TAB PO SCH ×2 (05:33→17:38)
[2018-11-12 06:46] LABS: ABSOLUTE BASOPHILS # (AUTO) 0.1 10^3/uL (0.0-0.2); ABSOLUTE EOSINOPHILS # (AUTO) 0.3 10^3/uL (0.0-0.6); ABSOLUTE LYMPHOCYTES (AUTO) 1.7 10^3/uL (0.5-4.7); ABSOLUTE MONOCYTES (AUTO) 1.1 10^3/uL (0.1-1.4); ABSOLUTE NEUT (AUTO) 8.7 10^3/uL (1.7-8.2); BASOPHILS % (AUTO) 0.8 % (0-2); EOSINOPHILS % (AUTO) 2.3 % (0-6); HEMATOCRIT 24.1 % (36.0-47.0); LYMPHOCYTES % (AUTO) 14.4 % (13-45); MEAN CORPUSCULAR HEMOGLOBIN 31.8 pg (27.0-33.4); MEAN CORPUSCULAR HGB CONC 33.1 g/dL (32.0-36.0); MEAN CORPUSCULAR VOLUME 96 fl (80-97); PLATELET COUNT 199 10^3/uL (150-450); RED CELL DISTRIBUTION WIDTH 22.2 % (11.5-14.0); SEGMENTED NEUTROPHILS % (AUTO) 73.5 % (42-78); TOTAL CELLS COUNTED % (AUTO) 100 %; WHITE BLOOD COUNT 11.9 10^3/uL (4.0-10.5)
[2018-11-12 07:02] LABS: ANION GAP 12 (5-19); BLOOD UREA NITROGEN 31 mg/dL (7-20); CALCIUM 8.5 mg/dL (8.4-10.2); CARBON DIOXIDE 33 mmol/L (22-30); CHLORIDE 97 mmol/L (98-107); GLUCOSE 112 mg/dL (75-110); POTASSIUM 3.5 mmol/L (3.6-5.0); SODIUM 141.5 mmol/L (137-145)
[2018-11-12] MEDS: ACETYLCYSTEINE 20% SOLN 800 MG/4 ML VIAL.NEB NEB SCH ×2 (08:01→21:27)
[2018-11-12] MEDS: INSULIN LISPRO 100 UNIT/ML 3 ML VIAL SUBCUT SCH ×4 (08:06→22:03)
[2018-11-12] MEDS: NYSTATIN TOPICAL POWDER 15 GM TP SCH ×2 (10:25→17:38)
[2018-11-12] MEDS: FUROSEMIDE 40 MG TABLET PO SCH ×2 (10:25→17:38)
--- NOTE | 2018-11-12 10:31 | PDOC PROGRESS REPORT ---
Subjective Progress Note for:: 11/12/18 Subjective:: Patient is feeling much better Patient's potassium is low Other blood work is stable Patient's wants to go home Still very weak Reason For Visit: SEPSIS, UTI, AMS, ACUTE KIDNEY INJURY, DELIRIUM Physical Exam Vital Signs: Temp Pulse Resp BP Pulse Ox 97.8 F 108 H 18 108/66 96 11/12/18 07:45 11/12/18 08:03 11/12/18 08:03 11/12/18 07:45 11/12/18 08:03 Intake & Output 11/11/18 11/12/18 11/13/18 06:59 06:59 06:59 Intake Total 642 708 Output Total 400 Balance 242 708 Weight 81.9 kg 80.1 kg General appearance: PRESENT: no acute distress, well-developed, well-nourished Head exam: PRESENT: atraumatic, normocephalic Eye exam: PRESENT: conjunctiva pink, EOMI, PERRLA. ABSENT: scleral icterus Ear exam: PRESENT: normal external ear exam Mouth exam: PRESENT: moist, tongue midline Neck exam: PRESENT: full ROM. ABSENT: carotid bruit, JVD, lymphadenopathy, thyromegaly Cardiovascular exam: PRESENT: RRR. ABSENT: diastolic murmur, rubs, systolic murmur Vascular exam: PRESENT: normal capillary refill GI/Abdominal exam: PRESENT: normal bowel sounds, soft. ABSENT: distended, guarding, mass, organolmegaly, rebound, tenderness Rectal exam: PRESENT: deferred Extremities exam: ABSENT: pedal edema Neurological exam: PRESENT: alert, awake, oriented to person, oriented to place, oriented to time, oriented to situation. ABSENT: motor sensory deficit Psychiatric exam: PRESENT: appropriate affect, normal mood. ABSENT: homicidal ideation, suicidal ideation Skin exam: PRESENT: dry, intact, warm. ABSENT: cyanosis, rash Results Laboratory Results: 11/12/18 05:27 11/12/18 05:39 11/12/18 11/12/18 05:27 05:39 WBC 11.9 H RBC 2.50 L Hgb 8.0 L Hct 24.1 L MCV 96 MCH 31.8 MCHC 33.1 RDW 22.2 H Plt Count 199 Seg Neutrophils % 73.5 Lymphocytes % 14.4 Monocytes % 9.0 Eosinophils % 2.3 Basophils % 0.8 Absolute Neutrophils 8.7 H Absolute Lymphocytes 1.7 Absolute Monocytes 1.1 Absolute Eosinophils 0.3 Absolute Basophils 0.1 Sodium 141.5 Potassium 3.5 L Chloride 97 L Carbon Dioxide 33 H Anion Gap 12 BUN 31 H Creatinine 2.55 H Est GFR ( Amer) 24 L Est GFR (Non-Af Amer) 20 L Glucose 112 H Calcium 8.5 09/29/18 09/29/18 09/29/18 10:44 10:44 12:59 Creatine Kinase Cancelled CK-MB (CK-2) Troponin I Cancelled 0.028 NT-Pro-B Natriuret Pep 09/29/18 09/29/18 09/29/18 12:59 15:30 15:30 Creatine Kinase 77 161 H CK-MB (CK-2) 2.69 Troponin I 0.028 NT-Pro-B Natriuret Pep 09/29/18 09/29/18 09/30/18 18:59 18:59 00:59 Creatine Kinase 201 H 197 H CK-MB (CK-2) 3.45 Troponin I 0.023 NT-Pro-B Natriuret Pep 09/30/18 10/01/18 10/03/18 00:59 04:13 04:50 Creatine Kinase CK-MB (CK-2) 2.94 Troponin I 0.021 NT-Pro-B Natriuret Pep 2270 H 3170 H 10/09/18 04:50 Creatine Kinase CK-MB (CK-2) Troponin I NT-Pro-B Natriuret Pep 630 Impressions: Head CT 10/03/18 00:00 IMPRESSION: CHRONIC CHANGES OF ATROPHY AND MICROVASCULAR ISCHEMIA. NO ACUTE PROCESS. EVIDENCE OF ACUTE STROKE: NO. Abdomen/Pelvis CT 10/23/18 00:00 IMPRESSION: Marked right pleural effusion and compressive atelectasis or obstructive atelectasis of the right lung. Large left pleural effusion. Generalized ascites. Chest CT 10/23/18 00:00 IMPRESSION: Marked right pleural effusion and compressive atelectasis or obs tructive atelectasis of the right lung. Large left pleural effusion. Generalized ascites. Chest Ultrasound 10/25/18 00:08 IMPRESSION: See above. Paracentesis Ultrasound 10/25/18 12:53 IMPRESSION: Successful ultrasound-guided paracentesis KUB X-Ray 11/04/18 00:00 IMPRESSION: Nasogastric tube tip and side port in the stomach. Chest X-Ray 11/07/18 00:00 IMPRESSION: 1. Increasing airspace disease throughout the left lung possibly due to edema, pneumonia or aspiration. 2. The tip of the feeding tube is not clearly demonstrated on this study but appears to project over the left upper quadrant in the region of the body of the stomach. 3. Stable right IJ central venous catheter. 4. Persistent volume loss in the right lung apex. Abdomen Ultrasound 11/10/18 00:00 IMPRESSION: Dilated, fluid-filled bowel loops identified within a modest volume of ascites about the abdomen. There is no ascites pocket sufficient for paracentesis. Per technologist report, paracentesis deferred at this time. Modified Barium Swallow 11/10/18 08:34 IMPRESSION: NO EVIDENCE OF PENETRATION OR ASPIRATION. PLEASE SEE SPEECH PATHOLOGIST REPORT FOR OTHER FINDINGS AND RECOMMENDATIONS. Assessment & Plan - Diagnosis (1) Hypokalemia Is this a current diagnosis for this admission?: Yes Plan: Replace the potassium (2) Hypomagnesemia Is this a current diagnosis for this admission?: Yes (3) Alcoholic liver disease Is this a current diagnosis for this admission?: Yes Plan: Currently stable (4) Anemia Qualifiers: Anemia type: other cause Other causes of anemia: chronic disease, other Qualified Code(s): D63.8 - Anemia in other chronic diseases classified elsewhere Is this a current diagnosis for this admission?: Yes Plan: Currently all stable (5) Alcohol abuse Is this a current diagnosis for this admission?: Yes Plan: Continues to patient on Ativan and thiamine (6) UTI (urinary tract infection) Qualifiers: Urinary tract infection type: site unspecified Hematuria presence: with hematuria Qualified Code(s): N39.0 - Urinary tract infection, site not specified; R31.9 - Hematuria, unspecified Is this a current diagnosis for this admission?: Yes Plan: Continue IV Rocephin (7) Respiratory failure Is this a current diagnosis for this admission?: Yes Plan: Status post extubated (8) Renal failure Qualifiers: Chronic kidney disease stage: on chronic dialysis Is this a current diagnosis for this admission?: Yes Plan: Patients require a dialysis in this hospital admissions currently not require any dialysis (9) Alcohol withdrawal Qualifiers: Complication of substance-induced condition: with delirium Qualified Code(s): F10.231 - Alcohol dependence with withdrawal delirium Is this a current diagnosis for this admission?: Yes Plan: Currently resolved (10) Septic shock Is this a current diagnosis for this admission?: Yes Plan: Currently resolved (11) Thrombocytopenia Is this a current diagnosis for this admission?: Yes (12) Gastric ulcer Qualifiers: Gastric ulcer chronicity: chronic Is this a current diagnosis for this admission?: Yes Plan: Will continues the PPI - Time Time Spent with patient: 15-24 minutes Medications reviewed and adjusted accordingly: Yes Anticipated discharge: SNF Within: Other - Plan Summary Plan Summary: Continues to physical therapy evaluations replace the potassiums
[2018-11-13] MEDS: DILTIAZEM HCL 60 MG TABLET PO SCH ×5 (01:00→23:57)
[2018-11-13] MEDS: IPRATROPIUM/ALBUTEROL 0.5-2.5 MG/3 ML AMPUL NEB SCH ×4 (02:17→20:15)
[2018-11-13] MEDS: SPIRONOLACTONE 25 MG TABLET PO SCH ×2 (06:40→17:20)
[2018-11-13] MEDS: LACTOBACILLUS ACIDOPHILUS 250 MG TAB PO SCH ×2 (06:40→17:21)
[2018-11-13 07:11] LABS: ANION GAP 11 (5-19); BLOOD UREA NITROGEN 29 mg/dL (7-20); CALCIUM 8.6 mg/dL (8.4-10.2); CARBON DIOXIDE 32 mmol/L (22-30); CHLORIDE 98 mmol/L (98-107); GLUCOSE 101 mg/dL (75-110); POTASSIUM 3.5 mmol/L (3.6-5.0); SODIUM 140.5 mmol/L (137-145)
[2018-11-13] MEDS: ACETYLCYSTEINE 20% SOLN 800 MG/4 ML VIAL.NEB NEB SCH ×2 (07:51→20:15)
[2018-11-13] MEDS: INSULIN LISPRO 100 UNIT/ML 3 ML VIAL SUBCUT SCH ×3 (08:40→16:20)
[2018-11-13] MEDS: FUROSEMIDE 40 MG TABLET PO SCH ×2 (09:15→17:20)
[2018-11-13] MEDS: NYSTATIN TOPICAL POWDER 15 GM TP SCH ×2 (09:15→17:20)
[2018-11-13] MEDS ORDERED: POTASSIUM CHLORIDE 20 MEQ PACKET PO ONE (09:30)
--- NOTE | 2018-11-13 10:14 | PDOC PROGRESS REPORT ---
Subjective Progress Note for:: 11/13/18 Subjective:: Patient is feeling much better Patient's potassium is low Other blood work is stable Patient's wants to go home Still very weak Reason For Visit: SEPSIS, UTI, AMS, ACUTE KIDNEY INJURY, DELIRIUM Physical Exam Vital Signs: Temp Pulse Resp BP Pulse Ox 98.3 F 96 20 140/95 H 97 11/13/18 07:34 11/13/18 07:53 11/13/18 07:53 11/13/18 07:34 11/13/18 07:53 Intake & Output 11/12/18 11/13/18 11/14/18 06:59 06:59 06:59 Intake Total 708 1266 Balance 708 1266 Weight 80.1 kg 78.2 kg General appearance: PRESENT: no acute distress, well-developed, well-nourished Head exam: PRESENT: atraumatic, normocephalic Eye exam: PRESENT: conjunctiva pink, EOMI, PERRLA. ABSENT: scleral icterus Ear exam: PRESENT: normal external ear exam Mouth exam: PRESENT: moist, tongue midline Neck exam: PRESENT: full ROM. ABSENT: carotid bruit, JVD, lymphadenopathy, thyromegaly Respiratory exam: PRESENT: clear to auscultation dawna Cardiovascular exam: PRESENT: RRR. ABSENT: diastolic murmur, rubs, systolic murmur Vascular exam: PRESENT: normal capillary refill GI/Abdominal exam: PRESENT: distended, normal bowel sounds, soft. ABSENT: guarding, mass, organolmegaly, rebound, tenderness Rectal exam: PRESENT: deferred Extremities exam: PRESENT: pedal edema Neurological exam: PRESENT: alert, awake, oriented to person, oriented to place, oriented to time, oriented to situation, CN II-XII grossly intact. ABSENT: motor sensory deficit Psychiatric exam: PRESENT: appropriate affect, normal mood. ABSENT: homicidal ideation, suicidal ideation Skin exam: PRESENT: dry, intact, warm. ABSENT: cyanosis, rash Results Laboratory Results: 11/12/18 05:27 11/13/18 06:47 11/13/18 06:47 Sodium 140.5 Potassium 3.5 L Chloride 98 Carbon Dioxide 32 H Anion Gap 11 BUN 29 H Creatinine 2.38 H Est GFR ( Amer) 26 L Est GFR (Non-Af Amer) 21 L Glucose 101 Calcium 8.6 09/29/18 09/29/18 09/29/18 10:44 10:44 12:59 Creatine Kinase Cancelled CK-MB (CK-2) Troponin I Cancelled 0.028 NT-Pro-B Natriuret Pep 09/29/18 09/29/18 09/29/18 12:59 15:30 15:30 Creatine Kinase 77 161 H CK-MB (CK-2) 2.69 Troponin I 0.028 NT-Pro-B Natriuret Pep 09/29/18 09/29/18 09/30/18 18:59 18:59 00:59 Creatine Kinase 201 H 197 H CK-MB (CK-2) 3.45 Troponin I 0.023 NT-Pro-B Natriuret Pep 09/30/18 10/01/18 10/03/18 00:59 04:13 04:50 Creatine Kinase CK-MB (CK-2) 2.94 Troponin I 0.021 NT-Pro-B Natriuret Pep 2270 H 3170 H 10/09/18 04:50 Creatine Kinase CK-MB (CK-2) Troponin I NT-Pro-B Natriuret Pep 630 Impressions: Head CT 10/03/18 00:00 IMPRESSION: CHRONIC CHANGES OF ATROPHY AND MICROVASCULAR ISCHEMIA. NO ACUTE PROCESS. EVIDENCE OF ACUTE STROKE: NO. Abdomen/Pelvis CT 10/23/18 00:00 IMPRESSION: Marked right pleural effusion and compressive atelectasis or obstructive atelectasis of the right lung. Large left pleural effusion. Generalized ascites. Chest CT 10/23/18 00:00 IMPRESSION: Marked right pleural effusion and compressive atelectasis or obstructive atelectasis of the right lung. Large left pleural effusion. Generalized ascites. Chest Ultrasound 10/25/18 00:08 IMPRESSION: See above. Paracentesis Ultrasound 10/25/18 12:53 IMPRESSION: Successful ultrasound-guided paracentesis KUB X-Ray 11/04/18 00:00 IMPRESSION: Nasogastric tube tip and side port in the stomach. Chest X-Ray 11/07/18 00:00 IMPRESSION: 1. Increasing airspace disease throughout the left lung possibly due to edema, pneumonia or aspiration. 2. The tip of the feeding tube is not clearly demonstrated on this study but appears to project over the left upper quadrant in the region of the body of the stomach. 3. Stable right IJ central venous catheter. 4. Persistent volume loss in the right lung apex. Abdomen Ultrasound 11/10/18 00:00 IMPRESSION: Dilated, fluid-filled bowel loops identified within a modest volume of ascites about the abdomen. There is no ascites pocket sufficient for paracentesis. Per technologist report, paracentesis deferred at this time. Modified Barium Swallow 11/10/18 08:34 IMPRESSION: NO EVIDENCE OF PENETRATION OR ASPIRATION. PLEASE SEE SPEECH PATHOLOGIST REPORT FOR OTHER FINDINGS AND RECOMMENDATIONS. Assessment & Plan - Diagnosis (1) Hypokalemia Is this a current diagnosis for this admission?: Yes Plan: Replace the potassium (2) Hypomagnesemia Is this a current diagnosis for this admission?: Yes (3) Alcoholic liver disease Is this a current diagnosis for this admission?: Yes Plan: Currently stable (4) Anemia Qualifiers: Anemia type: other cause Other causes of anemia: chronic disease, other Qualified Code(s): D63.8 - Anemia in other chronic diseases classified elsewhere Is this a current diagnosis for this admission?: Yes (5) Alcohol abuse Is this a current diagnosis for this admission?: Yes (6) UTI (urinary tract infection) Qualifiers: Urinary tract infection type: site unspecified Hematuria presence: with hematuria Qualified Code(s): N39.0 - Urinary tract infection, site not specified; R31.9 - Hematuria, unspecified Is this a current diagnosis for this admission?: Yes (7) Respiratory failure Is this a current diagnosis for this admission?: Yes (8) Renal failure Qualifiers: Chronic kidney disease stage: on chronic dialysis Is this a current diagnosis for this admission?: Yes (9) Alcohol withdrawal Qualifiers: Complication of substance-induced condition: with delirium Qualified Code(s): F10.231 - Alcohol dependence with withdrawal delirium Is this a current diagnosis for this admission?: Yes (10) Septic shock Is this a current diagnosis for this admission?: Yes (11) Thrombocytopenia Is this a current diagnosis for this admission?: Yes (12) Gastric ulcer Qualifiers: Gastric ulcer chronicity: chronic Is this a current diagnosis for this admission?: Yes - Time Time Spent with patient: 15-24 minutes Medications reviewed and adjusted accordingly: Yes Anticipated discharge: Other Within: Other - Plan Summary Plan Summary: Continues to physical therapy Continues to current medications
[2018-11-14] MEDS: IPRATROPIUM/ALBUTEROL 0.5-2.5 MG/3 ML AMPUL NEB SCH ×4 (01:56→19:47)
[2018-11-14 05:34] LABS: ANION GAP 10 (5-19); BLOOD UREA NITROGEN 27 mg/dL (7-20); CALCIUM 8.7 mg/dL (8.4-10.2); CARBON DIOXIDE 30 mmol/L (22-30); CHLORIDE 97 mmol/L (98-107); GLUCOSE 93 mg/dL (75-110); POTASSIUM 3.3 mmol/L (3.6-5.0); SODIUM 136.8 mmol/L (137-145)
[2018-11-14] MEDS: DILTIAZEM HCL 60 MG TABLET PO SCH ×4 (06:14→23:12)
[2018-11-14] MEDS: SPIRONOLACTONE 25 MG TABLET PO SCH ×2 (06:15→17:09)
[2018-11-14] MEDS: LACTOBACILLUS ACIDOPHILUS 250 MG TAB PO SCH ×2 (06:15→17:08)
[2018-11-14] MEDS: ACETYLCYSTEINE 20% SOLN 800 MG/4 ML VIAL.NEB NEB SCH ×2 (08:27→19:47)
[2018-11-14] MEDS: NYSTATIN TOPICAL POWDER 15 GM TP SCH ×2 (09:17→17:09)
[2018-11-14] MEDS: FUROSEMIDE 40 MG TABLET PO SCH ×2 (09:17→17:09)
--- NOTE | 2018-11-14 21:24 | PDOC PROGRESS REPORT ---
Subjective Progress Note for:: 11/14/18 Subjective:: Patient seen by the bedside, the plan is to transfer to rehabilitation, at [facility] Reason For Visit: SEPSIS, UTI, AMS, ACUTE KIDNEY INJURY, DELIRIUM Physical Exam Vital Signs: Temp Pulse Resp BP Pulse Ox 98.3 F 100 14 154/91 H 100 11/14/18 20:17 11/14/18 20:17 11/14/18 20:17 11/14/18 20:17 11/14/18 20:17 Intake & Output 11/13/18 11/14/18 11/15/18 06:59 06:59 06:59 Intake Total 1266 826 Output Total 75 Balance 1266 826 -75 Weight 78.2 kg 78 kg General appearance: PRESENT: no acute distress Eye exam: PRESENT: PERRLA Respiratory exam: PRESENT: clear to auscultation dawna Cardiovascular exam: PRESENT: +S1, +S2 GI/Abdominal exam: PRESENT: soft Neurological exam: PRESENT: alert Results Laboratory Results: 11/12/18 05:27 11/14/18 04:15 11/14/18 04:15 Sodium 136.8 L Potassium 3.3 L Chloride 97 L Carbon Dioxide 30 Anion Gap 10 BUN 27 H Creatinine 2.56 H Est GFR ( Amer) 24 L Est GFR (Non-Af Amer) 19 L Glucose 93 Calcium 8.7 09/29/18 09/29/18 09/29/18 10:44 10:44 12:59 Creatine Kinase Cancelled CK-MB (CK-2) Troponin I Cancelled 0.028 NT-Pro-B Natriuret Pep 09/29/18 09/29/18 09/29/18 12:59 15:30 15:30 Creatine Kinase 77 161 H CK-MB (CK-2) 2.69 Troponin I 0.028 NT-Pro-B Natriuret Pep 09/29/18 09/29/18 09/30/18 18:59 18:59 00:59 Creatine Kinase 201 H 197 H CK-MB (CK-2) 3.45 Troponin I 0.023 NT-Pro-B Natriuret Pep 09/30/18 10/01/18 10/03/18 00:59 04:13 04:50 Creatine Kinase CK-MB (CK-2) 2.94 Troponin I 0.021 NT-Pro-B Natriuret Pep 2270 H 3170 H 10/09/18 04:50 Creatine Kinase CK-MB (CK-2) Troponin I NT-Pro-B Natriuret Pep 630 Impressions: Head CT 10/03/18 00:00 IMPRESSION: CHRONIC CHANGES OF ATROPHY AND MICROVASCULAR ISCHEMIA. NO ACUTE PROCESS. EVIDENCE OF ACUTE STROKE: NO. Abdomen/Pelvis CT 10/23/18 00:00 IMPRESSION: Marked right pleural effusion and compressive atelectasis or obstructive atelectasis of the right lung. Large left pleural effusion. Generalized ascites. Chest CT 10/23/18 00:00 IMPRESSION: Marked right pleural effusion and compressive atelectasis or obstructive atelectasis of the right lung. Large left pleural effusion. Generalized ascites. Chest Ultrasound 10/25/18 00:08 IMPRESSION: See above. Paracentesis Ultrasound 10/25/18 12:53 IMPRESSION: Successful ultrasound-guided paracentesis KUB X-Ray 11/04/18 00:00 IMPRESSION: Nasogastric tube tip and side port in the stomach. Chest X-Ray 11/07/18 00:00 IMPRESSION: 1. Increasing airspace disease throughout the left lung possibly due to edema, pneumonia or aspiration. 2. The tip of the feeding tube is not clearly demonstrated on this study but appears to project over the left upper quadrant in the region of the body of the stomach. 3. Stable right IJ central venous catheter. 4. Persistent volume loss in the right lung apex. Abdomen Ultrasound 11/10/18 00:00 IMPRESSION: Dilated, fluid-filled bowel loops identified within a modest volume of ascites about the abdomen. There is no ascites pocket sufficient for paracentesis. Per technologist report, paracentesis deferred at this time. Modified Barium Swallow 11/10/18 08:34 IMPRESSION: NO EVIDENCE OF PENETRATION OR ASPIRATION. PLEASE SEE SPEECH PATHOLOGIST REPORT FOR OTHER FINDINGS AND RECOMMENDATIONS. Assessment & Plan - Diagnosis (1) Septic shock Is this a current diagnosis for this admission?: Yes (2) UTI (urinary tract infection) Qualifiers: Urinary tract infection type: site unspecified Hematuria presence: with hematuria Qualified Code(s): N39.0 - Urinary tract infection, site not specified; R31.9 - Hematuria, unspecified Is this a current diagnosis for this admission?: Yes (3) Hypokalemia Is this a current diagnosis for this admission?: Yes (4) Hypomagnesemia Is this a current diagnosis for this admission?: Yes (5) Alcohol abuse Is this a current diagnosis for this admission?: Yes (6) Metabolic encephalopathy Is this a current diagnosis for this admission?: Yes (7) Hyperammonemia Is this a current diagnosis for this admission?: Yes (8) Alcohol withdrawal Qualifiers: Complication of substance-induced condition: with delirium Qualified Code(s): F10.231 - Alcohol dependence with withdrawal delirium Is this a current diagnosis for this admission?: Yes (9) Respiratory failure with hypoxia and hypercapnia Qualifiers: Chronicity: acute Qualified Code(s): J96.01 - Acute respiratory failure with hypoxia; J96.02 - Acute respiratory failure with hypercapnia Is this a current diagnosis for this admission?: Yes (10) Nosocomial pneumonia Is this a current diagnosis for this admission?: Yes (11) Hypotension Qualifiers: Hypotension type: unspecified hypotension type Qualified Code(s): I95.9 - Hypotension, unspecified Is this a current diagnosis for this admission?: Yes (12) Gastroparesis Is this a current diagnosis for this admission?: Yes (13) Acute kidney injury Is this a current diagnosis for this admission?: Yes (14) DIC (disseminated intravascular coagulation) Is this a current diagnosis for this admission?: Yes (15) Hypercalcemia Is this a current diagnosis for this admission?: Yes (16) Paroxysmal atrial fibrillation with RVR Is this a current diagnosis for this admission?: Yes (17) Upper GI bleed Is this a current diagnosis for this admission?: Yes (18) Esophageal ulceration Qualifiers: Esophageal ulcer bleeding: without bleeding Qualified Code(s): K22.10 - Ulcer of esophagus without bleeding Is this a current diagnosis for this admission?: Yes (19) Ascites Qualifiers: Ascites type: due to alcoholic hepatitis Qualified Code(s): K70.11 - Alcoholic hepatitis with ascites Is this a current diagnosis for this admission?: Yes
[2018-11-15] MEDS: IPRATROPIUM/ALBUTEROL 0.5-2.5 MG/3 ML AMPUL NEB SCH ×4 (02:31→19:48)
[2018-11-15] MEDS: LACTOBACILLUS ACIDOPHILUS 250 MG TAB PO SCH ×2 (06:11→18:13)
[2018-11-15] MEDS: DILTIAZEM HCL 60 MG TABLET PO SCH ×4 (06:11→23:33)
[2018-11-15] MEDS: SPIRONOLACTONE 25 MG TABLET PO SCH ×2 (06:11→18:13)
[2018-11-15] MEDS: ACETYLCYSTEINE 20% SOLN 800 MG/4 ML VIAL.NEB NEB SCH ×2 (07:52→19:48)
[2018-11-15] MEDS: FUROSEMIDE 40 MG TABLET PO SCH ×2 (11:16→18:13)
[2018-11-15] MEDS: NYSTATIN TOPICAL POWDER 15 GM TP SCH ×2 (11:23→18:14)
--- NOTE | 2018-11-15 20:33 | PDOC TRANSFER SUMMARY ---
General - Admit/Disc Date/PCP Admission Date/Primary Care Provider: 09/29/18 13:24 ABNER WILKINS MD Discharge Date: 11/16/18 - Discharge Diagnosis (1) Septic shock Is this a current diagnosis for this admission?: Yes (2) UTI (urinary tract infection) Is this a current diagnosis for this admission?: Yes (3) Hypokalemia Is this a current diagnosis for this admission?: Yes (4) Hypomagnesemia Is this a current diagnosis for this admission?: Yes (5) Alcohol abuse Is this a current diagnosis for this admission?: Yes (6) Metabolic encephalopathy Is this a current diagnosis for this admission?: Yes (7) Hyperammonemia Is this a current diagnosis for this admission?: Yes (8) Alcohol withdrawal Is this a current diagnosis for this admission?: Yes (9) Respiratory failure with hypoxia and hypercapnia Is this a current diagnosis for this admission?: Yes (10) Nosocomial pneumonia Is this a current diagnosis for this admission?: Yes (11) Hypotension Is this a current diagnosis for this admission?: Yes (12) Gastroparesis Is this a current diagnosis for this admission?: Yes (13) Acute kidney injury Is this a current diagnosis for this admission?: Yes (14) DIC (disseminated intravascular coagulation) Is this a current diagnosis for this admission?: Yes (15) Hypercalcemia Is this a current diagnosis for this admission?: Yes (16) Paroxysmal atrial fibrillation with RVR Is this a current diagnosis for this admission?: Yes (17) Upper GI bleed Is this a current diagnosis for this admission?: Yes (18) Esophageal ulceration Is this a current diagnosis for this admission?: Yes (19) Ascites Is this a current diagnosis for this admission?: Yes - Additional Information Resuscitation Status: Full Code Prescriptions: Cyanocobalamin (Vitamin B-12) [Vitamin B12] 1,000 mcg PO DAILY #100 tablet Thiamine HCl [Thiamine 100 mg Tablet] 100 mg PO DAILY #90 tablet Home Medications: Cyanocobalamin (Vitamin B-12) [Vitamin B12] 1,000 mcg PO DAILY #100 tablet 11/15/18 Diltiazem HCl [Cardizem 60 mg Tablet] 60 mg PO Q6 tablet 11/15/18 Ipratropium/Albuterol Sulfate [Duoneb 3 ml Ampul] 3 ml NEB RTQ6 vial.neb 11/15/18 Lactobacillus Acidophilus [Bacid 250 mg Tablet] 250 mg PO Q12A tab 11/15/18 Levalbuterol HCl [Xopenex Neb 1.25 mg/3 ml Ampul] 1.25 mg NEB RTQ4HP PRN vial.neb 11/15/18 Nystatin [Mycostatin Topical Powder 15 gm] 1 applic TP BID bottle 11/15/18 Thiamine HCl [Thiamine 100 mg Tablet] 100 mg PO DAILY #90 tablet 11/15/18 History of Present Illness Admission Date/PCP: 09/29/18 13:24 ABNER WILKINS MD History of Present Illness: MAAME SAENZ is a 52 year old female, Patient was brought to the emergency room by EMS For evaluation of altered mental status, family stated that in the last 3 days patient function had declined, she was more confused and less interactive she also had episode of vomiting and diarrhea per family patient is an alcoholic, history taking was a challenge. When she arrived in the emergency room the blood pressure recorded was low, there was severe leukocytosis with a left shift, she was diagnosed with septic shock in the emergency room there was lactic acidosis, encephalopathy, acute kidney injury, the urinalysis was grossly abnormal suggesting that the source of the sepsis is in the urine. She has a history of alcohol abuse and alcoholism, history of hospitalization in the past from pneumonia, septic shock requiring mechanical ventilation Hospital Course Hospital Course: Dallin was admitted on September 29, 2018 when she presented to the emergency room for evaluation of altered mental status, family stated that the last 3 days before she presented she was cognitively declining, more confused, less interactive. She also had episode of vomiting and diarrhea, history taking was a challenge, when she arrived in the emergency room the blood pressure recorded was low, there was severe leukocytosis with a left shift the initial diagnosis was septic shock. On presentation she had abnormal urinalysis that suggested the source of the sepsis was the urine, she was initially empirically treated with intravenous Rocephin, she was fluid resuscitated at 30 cc/kg and subsequently maintenance fluid was changed to Ringer's lactate. At present patient she did not require vasopressor, she is an alcoholic, she has history of alcohol withdrawal syndrome from previous hospital admission she was empirically started on alcohol withdrawal protocol from this admission. While on the floor patient condition decline she was not able to maintain adequate airway she was transferred to intensive care unit intubated on mechanical ventilation. This was complicated by low blood pressure requiring intravenous pressors she was seen by pulmonary she underwent bronchoscopy, the bronchoalveolar lavage did not demonstrate any bacteria infection only fungal elements were cultured from the BAL. It was felt that this is probably colonization she also had acute kidney injury she was completely anuric, she required hemodialysis hospital because was also complicated with disseminated intravascular coagulopathy, she was seen by a can top setter oncologist, she recommended cryoprecipitate.patient family requested initially for transfer to tertiary care, attempt was made to transfer to Critical access hospital but ultimately the transfer was declinedInitially it was felt that she had DIC but on further evaluation the DIC picture was more consistent with advanced liver disease because of the other signs and symptoms, stigmata of liver disease including persistent hypotension, elevated serum ammonia level, severe hyperammonemia with associated anasarca including ascites. Effusion she underwent abdominal paracentesis. Unfortunately they could not differentiate the DIC from advanced liver disease typically factor VIII is used to differentiate advanced liver disease from DIC but she already received FFP and cryoprecipitate. She developed left lung collapse this was felt to be due to mucous plugging with severe pleural effusion she underwent bronchoscopy that was done on 10/26/2018 initially she was extubated only to be reintubated on medical ventilation she also required intravenous pressors for prolonged period of time no micro pathogen was cultured from the BAL, she had 2 bronchoscopy during the stay. Urine culture grew Proteus. She required hemodialysis, intravenous albumin hospital because of very prolonged she also was treated with antifungal Diflucan intravenously she was seen by multiple specialties including nephrology, pulmonary, on-call hematology.Patient is not stable enough for discharge the serum creatinine still elevated she will need physical therapy to get her back to her baseline.She also had upper GI bleed, she was seen by GI she underwent EGD on 11/08/2018 she was found to have esophageal ulceration there was no varices found initially she was treated with NG tube for the purpose of nutrition this was discontinued, the ulceration of the esophagus was felt to be from the NG tube, the NG tube was discontinued.Hospital course was prolonged uneventful Physical Exam Vital Signs: Temp Pulse Resp BP Pulse Ox 98.1 F 108 H 20 105/66 95 11/15/18 15:16 11/15/18 15:16 11/15/18 15:16 11/15/18 15:16 11/15/18 15:16 Intake & Output 11/14/18 11/15/18 11/16/18 06:59 06:59 06:59 Intake Total 826 0 473 Output Total 75 Balance 826 -75 473 Weight 78 kg 72.7 kg General appearance: PRESENT: no acute distress Eye exam: PRESENT: PERRLA Respiratory exam: PRESENT: clear to auscultation dawna Cardiovascular exam: PRESENT: +S1, +S2 GI/Abdominal exam: PRESENT: soft Neurological exam: PRESENT: alert, CN II-XII grossly intact Results Laboratory Results: 11/12/18 05:27 11/14/18 04:15 09/29/18 09/29/18 09/29/18 10:44 10:44 12:59 Creatine Kinase Cancelled CK-MB (CK-2) Troponin I Cancelled 0.028 NT-Pro-B Natriuret Pep 09/29/18 09/29/18 09/29/18 12:59 15:30 15:30 Creatine Kinase 77 161 H CK-MB (CK-2) 2.69 Troponin I 0.028 NT-Pro-B Natriuret Pep 09/29/18 09/29/18 09/30/18 18:59 18:59 00:59 Creatine Kinase 201 H 197 H CK-MB (CK-2) 3.45 Troponin I 0.023 NT-Pro-B Natriuret Pep 09/30/18 10/01/18 10/03/18 00:59 04:13 04:50 Creatine Kinase CK-MB (CK-2) 2.94 Troponin I 0.021 NT-Pro-B Natriuret Pep 2270 H 3170 H 10/09/18 04:50 Creatine Kinase CK-MB (CK-2) Troponin I NT-Pro-B Natriuret Pep 630 Impressions: Head CT 10/03/18 00:00 IMPRESSION: CHRONIC CHANGES OF ATROPHY AND MICROVASCULAR ISCHEMIA. NO ACUTE PROCESS. EVIDENCE OF ACUTE STROKE: NO. Abdomen/Pelvis CT 10/23/18 00:00 IMPRESSION: Marked right pleural effusion and compressive atelectasis or obstructive atelectasis of the right lung. Large left pleural effusion. Generalized ascites. Chest CT 10/23/18 00:00 IMPRESSION: Marked right pleural effusion and compressive atelectasis or obstructive atelectasis of the right lung. Large left pleural effusion. Generalized ascites. Chest Ultrasound 10/25/18 00:08 IMPRESSION: See above. Paracentesis Ultrasound 10/25/18 12:53 IMPRESSION: Successful ultrasound-guided paracentesis KUB X-Ray 11/04/18 00:00 IMPRESSION: Nasogastric tube tip and side port in the stomach. Chest X-Ray 11/07/18 00:00 IMPRESSION: 1. Increasing airspace disease throughout the left lung possibly due to edema, pneumonia or aspiration. 2. The tip of the feeding tube is not clearly demonstrated on this study but appears to project over the left upper quadrant in the region of the body of the stomach. 3. Stable right IJ central venous catheter. 4. Persistent volume loss in the right lung apex. Abdomen Ultrasound 11/10/18 00:00 IMPRESSION: Dilated, fluid-filled bowel loops identified within a modest volume of ascites about the abdomen. There is no ascites pocket sufficient for p aracentesis. Per technologist report, paracentesis deferred at this time. Modified Barium Swallow 11/10/18 08:34 IMPRESSION: NO EVIDENCE OF PENETRATION OR ASPIRATION. PLEASE SEE SPEECH PATHOLOGIST REPORT FOR OTHER FINDINGS AND RECOMMENDATIONS. Transfer Plan - Disposition Transfer Plan: She be transferred to the long term, continue Protonix 40 mg p.o. daily in addition to what she is taking Qualifiers - * PATIENT BEING DISCHARGED WITH ANY OF THE FOLLOWING DIAGNOSIS: No
[2018-11-16] MEDS: IPRATROPIUM/ALBUTEROL 0.5-2.5 MG/3 ML AMPUL NEB SCH ×3 (01:51→13:15)
[2018-11-16] MEDS: SPIRONOLACTONE 25 MG TABLET PO SCH ×2 (05:36→17:11)
[2018-11-16] MEDS: LACTOBACILLUS ACIDOPHILUS 250 MG TAB PO SCH ×2 (05:36→17:11)
[2018-11-16] MEDS: DILTIAZEM HCL 60 MG TABLET PO SCH ×3 (05:37→17:11)
[2018-11-16] MEDS: ACETYLCYSTEINE 20% SOLN 800 MG/4 ML VIAL.NEB NEB SCH (07:36)
[2018-11-16] MEDS: NYSTATIN TOPICAL POWDER 15 GM TP SCH ×2 (09:11→17:12)
[2018-11-16] MEDS: FUROSEMIDE 40 MG TABLET PO SCH ×2 (09:11→17:11)
[2018-11-16 18:25] VITALS: BP 106/65
== END 2018-11-16 18:40 | DRG 870 ==
LOC: ER 10:08 → EH 13:24 → 3W 20:11 → ICU 10-05 08:39 → 3N 11-02 20:35
PROVIDERS: ADMIT Internal Medicine; ATTEND Internal Medicine
PROC: 30233N1 Transfusion of Nonautologous Red Blood Cells into Peripheral Vein, Percutaneous Approach (ICD-10-PCS; 2018-10-01)
PROC: 5A1955Z Respiratory Ventilation, Greater than 96 Consecutive Hours (ICD-10-PCS; principal; 2018-10-05)
PROC: 02HV33Z Insertion of Infusion Device into Superior Vena Cava, Percutaneous Approach (ICD-10-PCS; 2018-10-05)
PROC: 0DH673Z Insertion of Infusion Device into Stomach, Via Natural or Artificial Opening (ICD-10-PCS; 2018-10-05)
PROC: 0B9M7ZX Drainage of Bilateral Lungs, Via Natural or Artificial Opening, Diagnostic (ICD-10-PCS; 2018-10-05)
PROC: 0BH17EZ Insertion of Endotracheal Airway into Trachea, Via Natural or Artificial Opening (ICD-10-PCS; 2018-10-05)
PROC: 06HY33Z Insertion of Infusion Device into Lower Vein, Percutaneous Approach (ICD-10-PCS; 2018-10-13)
PROC: 5A1D70Z Performance of Urinary Filtration, Intermittent, Less than 6 Hours Per Day (ICD-10-PCS; 2018-10-14)
PROC: 30233N1 Transfusion of Nonautologous Red Blood Cells into Peripheral Vein, Percutaneous Approach (ICD-10-PCS; 2018-10-15)
PROC: 30233M1 Transfusion of Nonautologous Plasma Cryoprecipitate into Peripheral Vein, Percutaneous Approach (ICD-10-PCS; 2018-10-17)
PROC: 30233K1 Transfusion of Nonautologous Frozen Plasma into Peripheral Vein, Percutaneous Approach (ICD-10-PCS; 2018-10-22)
PROC: 5A09557 Assistance with Respiratory Ventilation, Greater than 96 Consecutive Hours, Continuous Positive Airway Pressure (ICD-10-PCS; 2018-10-22)
PROC: 30233N1 Transfusion of Nonautologous Red Blood Cells into Peripheral Vein, Percutaneous Approach (ICD-10-PCS; 2018-10-23)
PROC: 5A02115 Assistance with Cardiac Output using Pulsatile Compression, Intermittent (ICD-10-PCS; 2018-10-23)
PROC: 30233M1 Transfusion of Nonautologous Plasma Cryoprecipitate into Peripheral Vein, Percutaneous Approach (ICD-10-PCS; 2018-10-24)
PROC: 0W9G30Z Drainage of Peritoneal Cavity with Drainage Device, Percutaneous Approach (ICD-10-PCS; 2018-10-25)
PROC: 0DJ08ZZ Inspection of Upper Intestinal Tract, Via Natural or Artificial Opening Endoscopic (ICD-10-PCS; 2018-11-08)
DX: A41.9 Sepsis, unspecified organism (principal); R65.21 Severe sepsis with septic shock; G93.41 Metabolic encephalopathy; J18.9 Pneumonia, unspecified organism; N17.0 Acute kidney failure with tubular necrosis; J96.02 Acute respiratory failure with hypercapnia; J96.01 Acute respiratory failure with hypoxia; F10.231 Alcohol dependence with withdrawal delirium; E87.2 Acidosis; N39.0 Urinary tract infection, site not specified; E72.20 Disorder of urea cycle metabolism, unspecified; C85.90 Non-Hodgkin lymphoma, unspecified, unspecified site; J98.19 Other pulmonary collapse; E87.0 Hyperosmolality and hypernatremia; K92.2 Gastrointestinal hemorrhage, unspecified; K22.10 Ulcer of esophagus without bleeding; D64.9 Anemia, unspecified; E87.6 Hypokalemia; E83.42 Hypomagnesemia; E88.09 Other disorders of plasma-protein metabolism, not elsewhere classified; K31.84 Gastroparesis; D69.59 Other secondary thrombocytopenia; I48.0 Paroxysmal atrial fibrillation; K25.7 Chronic gastric ulcer without hemorrhage or perforation; K70.31 Alcoholic cirrhosis of liver with ascites; J44.9 Chronic obstructive pulmonary disease, unspecified; B96.20 Unspecified Escherichia coli [E. coli] as the cause of diseases classified elsewhere; B96.4 Proteus (mirabilis) (morganii) as the cause of diseases classified elsewhere; R31.9 Hematuria, unspecified; F10.20 Alcohol dependence, uncomplicated; F17.210 Nicotine dependence, cigarettes, uncomplicated; Y95 Nosocomial condition; Y90.0 Blood alcohol level of less than 20 mg/100 ml; Z86.718 Personal history of other venous thrombosis and embolism
CPT/HCPCS: 00731; 31500; 36415; 36430; 36600; 43235; 49083; 70450; 71045; 71250; 74018; 74176; 74230; 76604; 76705; 80048; 80053; 80061; 80074; 80202; 80307; 81001; 82040; 82140; 82150; 82272; 82306; 82533; 82550; 82553; 82607; 82728; 82746; 82803; 82945; 82962; 83036; 83540; 83550; 83605; 83615; 83690; 83735; 83880; 83970; 84100; 84132; 84155; 84156; 84157; 84166; 84439; 84443; 84478; 84484; 85025; 85027; 85045; 85240; 85379; 85384; 85610; 85730; 86320; 86850; 86900; 86901; 86920; 86922; 87015; 87040; 87070; 87075; 87086; 87088; 87101; 87116; 87186; 87205; 87206; 87252; 87493; 89050; 93005; 93010; 94002; 94003; 94640; 94660; 94667; 94668; 96360; 96361; 99285; A4649; B4155; C1751; J0153; J0282; J0330; J0692; J0696; J1335; J1450; J1642; J1644; J1650; J1815; J1940; J2060; J2250; J2354; J2370; J2704; J2765; J3370; J3475; J3480; J3490; J7030; J7040; J7050; J7060; J7120; J7620; P9016; P9017; P9047; Q4081; S0164

== ENCOUNTER 2018-12-07 19:10 | Inpatient (IN) | payer MEDICAID ==
[2018-12-07] MEDS ORDERED: RINGERS SOLUTION,LACTATED 1,000 ML IV ONE (19:37)
[2018-12-07 20:17] LABS: ABSOLUTE BASOPHILS # (AUTO) 0.1 10^3/uL (0.0-0.2); ABSOLUTE EOSINOPHILS # (AUTO) 0.3 10^3/uL (0.0-0.6); ABSOLUTE LYMPHOCYTES (AUTO) 1.8 10^3/uL (0.5-4.7); ABSOLUTE MONOCYTES (AUTO) 0.8 10^3/uL (0.1-1.4); ABSOLUTE NEUT (AUTO) 15.1 10^3/uL (1.7-8.2); BASOPHILS % (AUTO) 0.3 % (0-2); EOSINOPHILS % (AUTO) 1.9 % (0-6); HEMATOCRIT 28.1 % (36.0-47.0); HEMOGLOBIN 9.1 g/dL (12.0-15.5); LYMPHOCYTES % (AUTO) 9.9 % (13-45); MEAN CORPUSCULAR HEMOGLOBIN 30.5 pg (27.0-33.4); MEAN CORPUSCULAR HGB CONC 32.4 g/dL (32.0-36.0); MEAN CORPUSCULAR VOLUME 94 fl (80-97); MONOCYTES % (AUTO) 4.6 % (3-13); PLATELET COUNT 254 10^3/uL (150-450); RED BLOOD COUNT 2.97 10^6/uL (3.72-5.28); RED CELL DISTRIBUTION WIDTH 20.7 % (11.5-14.0); SEGMENTED NEUTROPHILS % (AUTO) 83.3 % (42-78); TOTAL CELLS COUNTED % (AUTO) 100 %; WHITE BLOOD COUNT 18.1 10^3/uL (4.0-10.5)
[2018-12-07 20:18] LABS: VENOUS BLOOD BASE EXCESS -6.4 mmol/L; VENOUS BLOOD HCO3 20.8 mmol/L (20-32); VENOUS BLOOD PCO2 49.6 mmHg (35-63); VENOUS BLOOD PH 7.24 (7.30-7.42)
--- NOTE | 2018-12-07 20:24 | ER Document Report ---
ED General - General Chief Complaint: Abdominal Pain Stated Complaint: ABDOMINAL PAIN Time Seen by Provider: 12/07/18 19:33 Notes: Patient is a 53-year-old female with a past medical history of alcoholic liver cirrhosis, ascites, previous hospitalization for sepsis secondary pyelonephritis in September 2018 currently resides in a nursing facility who presents by EMS due to concerns of abdominal swelling and the patient reports that she noticed some increasing abdominal swelling approximately 1 week ago that has been progressively worsening since that time. Nothing seems to improve or worsen this. She notes that she has some mild soreness diffusely to the abdomen but adamantly denies any focal areas of abdominal pain. She attributes the abdominal soreness to coughing. She has not seen her primary doctor regarding today's concerns. Denies fever. EMS does report that her blood pressure was apparently in the 90 systolic earlier this evening and was part of the reason that EMS was contacted. History is otherwise somewhat limited secondary to the patient being a very poor historian. TRAVEL OUTSIDE OF THE [place] IN LAST 30 DAYS: No - Related Data Allergies/Adverse Reactions: No Known Allergies Allergy (Verified 04/05/18 07:38) Past Medical History - General Information source: Patient, Emergency Med Personnel - Social History Smoking Status: Former Smoker Frequency of alcohol use: Former heavy use Drug Abuse: None Lives with: Long-Term Family History: Reviewed & Not Pertinent - Past Medical History Cardiac Medical History: Reports: Hx Atrial Fibrillation, Hx DVT Pulmonary Medical History: Reports: Hx COPD, Hx Pneumonia, Hx Intubation, Hx Respiratory Failure Denies: Hx Tuberculosis Neurological Medical History: Denies: Hx Cerebrovascular Accident Renal/ Medical History: Denies: Hx Peritoneal Dialysis Malignancy Medical History: Reports: Hx Lymphoma - History of non-Hodgkin's lymphoma diagnosed 13 years ago. Had limited chem GI Medical History: Reports: Hx Cirrhosis, Hx Liver Failure Psychiatric Medical History: Denies: Hx Depression Past Surgical History: Reports: Hx Section, Hx Hysterectomy, Hx Orthop edic Surgery - Left hip replacement, right knee, Hx Tonsillectomy, Hx Tubal Ligation. Denies: Hx Pacemaker - Immunizations Hx Diphtheria, Pertussis, Tetanus Vaccination: Yes Review of Systems - Review of Systems Notes: Constitutional: Negative for fever. HENT: Negative for sore throat. Eyes: Negative for visual changes. Cardiovascular: Negative for chest pain. Respiratory: Negative for shortness of breath. Gastrointestinal: Positive for abdominal distention and discomfort Genitourinary: Negative for dysuria. Musculoskeletal: Negative for back pain. Skin: Negative for rash. Neurological: Negative for headaches, weakness or numbness. 10 point ROS negative except as marked above and in HPI. Physical Exam - Vital signs Vitals: Temp 98.7 F 12/07/18 19:24 Interpretation: Normal Notes: PHYSICAL EXAMINATION: GENERAL: Appears older than stated age, mildly unwell but in no acute distress HEAD: Atraumatic, normocephalic. EYES: Pupils equal round and reactive to light, extraocular movements intact, sclera anicteric, conjunctiva are normal. ENT: nares patent, oropharynx clear without exudates. Mildly dry mucous membranes. NECK: Normal range of motion, supple without lymphadenopathy LUNGS: Breath sounds clear to auscultation bilaterally and equal. No wheezes rales or rhonchi. HEART: Regular rate and rhythm without murmurs ABDOMEN: Moderately protuberant abdomen, nontender, normoactive bowel sounds. No guarding, no rebound. No masses appreciated. EXTREMITIES: Normal range of motion, no pitting or edema. No cyanosis. NEUROLOGICAL: No focal neurological deficits. Moves all extremities spontaneously and on command. PSYCH: Normal mood, normal affect. SKIN: Warm, Dry, normal turgor, no rashes or lesions noted. Course - Re-evaluation Re-evalutation: 12/07/18 20:23 Patient presents with 1 week of increasing abdominal swelling and 24 hours of "abdominal soreness". Patient after correction of multiple occasions when I refer to her having abdominal pain stating "I do not have any pain it is just a little sore particular when I cough. She repeatedly states "I think is just sore from coughing so much". On exam the patient has no focal areas of tenderness rebound or guarding. She does have some mild protuberance of abdomen, no appreciable fluid wave. Bedside abdominal ultrasound does reveal free fluid suggestive of ascites accumulation although is a very mild amount of ascites. A peritoneal tap was undertaken at the bedside using sterile precautions and the fluid will be sent to evaluate for SBP. The remainder of her exam is completely benign and with her denying any abdominal pain I the very low clinical suspicion for an immediate surgical pathology. Labs are pending and will reassess thereafter. Will also obtain a chest x-ray given the guicho quency of her cough. 12/07/18 23:28 Patient's urinalysis is consistent with pyelonephritis. Ascites fluid not consistent with SBP once RBCs are subtracted. Patient has been started on ceftriaxone. Blood pressures remained within acceptable limits after fluid resuscitation. I did discuss with Dr. Higuera who is accepted the patient for admission given her initial hypotension, elevated white blood cell count, history of severe sepsis in the context of pyelonephritis in the past. - Vital Signs Vital signs: Temp Pulse Resp BP Pulse Ox 98.6 F 115 H 20 133/81 H 94 12/08/18 01:55 12/08/18 01:55 12/08/18 01:55 12/08/18 01:55 12/08/18 01:55 - Laboratory Result Diagrams: 12/08/18 02:05 12/08/18 02:05 Laboratory results interpreted by me: 12/07/18 12/07/18 12/07/18 20:00 20:00 20:00 WBC 18.1 H RBC 2.97 L Hgb 9.1 L Hct 28.1 L RDW 20.7 H Seg Neutrophils % 83.3 H Lymphocytes % 9.9 L Absolute Neutrophils 15.1 H VBG pH Chloride 109 H Carbon Dioxide 20 L Est GFR ( Amer) 56 L Est GFR (Non-Af Amer) 46 L Magnesium Total Bilirubin 1.4 H Direct Bilirubin 1.0 H AST 37 H Alkaline Phosphatase 143 H Ammonia 80.1 H Creatine Kinase Albumin 2.9 L Urine Blood Urine Nitrite Ur Leukocyte Esterase 12/07/18 12/07/18 12/07/18 20:00 20:00 20:00 WBC RBC Hgb Hct RDW Seg Neutrophils % Lymphocytes % Absolute Neutrophils VBG pH 7.24 L Chloride Carbon Dioxide Est GFR ( Amer) Est GFR (Non-Af Amer) Magnesium 0.8 L* Total Bilirubin Direct Bilirubin AST Alkaline Phosphatase Ammonia Creatine Kinase 23 L Albumin Urine Blood Urine Nitrite Ur Leukocyte Esterase 12/07/18 20:55 WBC RBC Hgb Hct RDW Seg Neutrophils % Lymphocytes % Absolute Neutrophils VBG pH Chloride Carbon Dioxide Est GFR ( Amer) Est GFR (Non-Af Amer) Magnesium Total Bilirubin Direct Bilirubin AST Alkaline Phosphatase Ammonia Creatine Kinase Albumin Urine Blood SMALL H Urine Nitrite POSITIVE H Ur Leukocyte Esterase LARGE H - Diagnostic Test Radiology reviewed: Reports reviewed Procedures - Paracentesis LLQ Consent obtained: Yes - Verbal Paracentesis pre-procedure: Sterile PPE donned, Chloraprep applied, Sterile drapes applied Needle size: 22 Amount/type of drainage: 10 cc yellow Number of attempts: 1 Ultrasound guided: Yes Complications: No Discharge - Discharge Clinical Impression: Pyelonephritis Sepsis Qualifiers: Sepsis type: sepsis due to unspecified organism Qualified Code(s): A41.9 - Sepsis, unspecified organism Ascites Qualifiers: Ascites type: due to alcoholic hepatitis Qualified Code(s): K70.11 - Alcoholic hepatitis with ascites Condition: Fair Disposition: ADMITTED INPATIENT Admitting Provider: [facility] Unit Admitted: [facility]
[2018-12-07 20:35] LABS: ALANINE AMINOTRANSFERASE 11 U/L (9-52); ALBUMIN 2.9 g/dL (3.5-5.0); ALKALINE PHOSPHATASE 143 U/L (38-126); ANION GAP 9 (5-19); ASPARTATE AMINO TRANSFERASE 37 U/L (14-36); BILIRUBIN,TOTAL 1.4 mg/dL (0.2-1.3); BLOOD UREA NITROGEN 15 mg/dL (7-20); CALCIUM 8.9 mg/dL (8.4-10.2); CARBON DIOXIDE 20 mmol/L (22-30); CHLORIDE 109 mmol/L (98-107); GLUCOSE 99 mg/dL (75-110); LIPASE 35.4 U/L (23-300); POTASSIUM 4.8 mmol/L (3.6-5.0); SODIUM 137.7 mmol/L (137-145); TOTAL PROTEIN 7.6 g/dL (6.3-8.2)
[2018-12-07 21:06] LABS: FLUID SOURCE ASCITES; FLUID TYPE PERITONEAL
--- NOTE | 2018-12-07 21:14 | RADIOLOGY REPORT (SQ) ---
EXAM DESCRIPTION: [facility]: XR CHEST 1 VIEW CLINICAL HISTORY: 53 years Female, cough COMPARISON: 11/07/2018 FINDINGS: Band of fibrosis in right apical thickening has not changed. The previous left pulmonary infiltrate has resolved. There are persistent perihilar interstitial changes, similar to older exams from September 2018 . No pleural effusion. No pneumothorax. No mediastinal shift. Right mid sternal border is thickened, and association with the right upper lobe fibrosis. Bony structures are unremarkable. IMPRESSION: 1. Unchanged dense right upper lobe chronic fibrosis. 2. Left perihilar infiltrate. This is also likely chronic, but cannot exclude a superimposed acute left perihilar pneumonia.
[2018-12-07 21:28] LABS: FLUID COLOR YELLOW
[2018-12-07 21:29] LABS: FLUID APPEARANCE CLEAR; FLUID VISCOSITY LIQUID
[2018-12-07 21:37] LABS: APPEARANCE,URINE CLOUDY; BILIRUBIN,URINE NEGATIVE (NEGATIVE); GLUCOSE, URINE NEGATIVE (NEGATIVE); KETONES,URINE NEGATIVE (NEGATIVE); LEUKOCYTE ESTERASE,URINE LARGE (NEGATIVE); NITRITE,URINE POSITIVE (NEGATIVE); PROTEIN,URINE NEGATIVE (NEGATIVE); URINE SPECIFIC GRAVITY 1.012; UROBILINOGEN,URINE NEGATIVE mg/dL (<2.0)
[2018-12-07 21:40] LABS: COLOR,URINE YELLOW
[2018-12-07] MEDS ORDERED: CEFTRIAXONE INJ 1000 MG VIAL IV ONE (23:21)
[2018-12-07] MEDS ORDERED: CEFTRIAXONE 1 GM/D5W RTU 1 GM/50 ML RTUPB IV ONE (23:59)
[2018-12-07] MEDS ORDERED: LACTULOSE SYRUP 20 GM/30 ML UDCUP PO ONE (23:59)
[2018-12-08] MEDS ORDERED: ALBUMIN HUMAN 500 ML IV ONE (01:30)
[2018-12-08] MEDS ORDERED: ALBUMIN HUMAN 25.0 GM/100 ML RTUINJ IV ONE (01:38)
[2018-12-08] MEDS: RINGERS SOLUTION,LACTATED 1,000 ML IV PRN ×2 (01:44→17:42)
[2018-12-08 01:51] LABS: PHOSPHORUS 4.4 mg/dL (2.5-4.5)
[2018-12-08 02:04] LABS: CREATINE KINASE MB 0.51 ng/mL (<4.55)
[2018-12-08 02:10] LABS: TROPONIN I < 0.012 ng/mL
[2018-12-08] MEDS: ALBUMIN HUMAN 12.5 GM/50 ML RTUINJ IV SCH ×2 (02:20→03:23)
[2018-12-08 02:23] LABS: ABSOLUTE BASOPHILS # (AUTO) 0.1 10^3/uL (0.0-0.2); ABSOLUTE EOSINOPHILS # (AUTO) 0.4 10^3/uL (0.0-0.6); ABSOLUTE LYMPHOCYTES (AUTO) 1.8 10^3/uL (0.5-4.7); ABSOLUTE MONOCYTES (AUTO) 0.8 10^3/uL (0.1-1.4); ABSOLUTE NEUT (AUTO) 15.2 10^3/uL (1.7-8.2); BASOPHILS % (AUTO) 0.5 % (0-2); EOSINOPHILS % (AUTO) 2.3 % (0-6); HEMATOCRIT 29.8 % (36.0-47.0); HEMOGLOBIN 9.7 g/dL (12.0-15.5); LYMPHOCYTES % (AUTO) 9.9 % (13-45); MEAN CORPUSCULAR HEMOGLOBIN 30.4 pg (27.0-33.4); MEAN CORPUSCULAR HGB CONC 32.4 g/dL (32.0-36.0); MEAN CORPUSCULAR VOLUME 94 fl (80-97); MONOCYTES % (AUTO) 4.3 % (3-13); PLATELET COUNT 234 10^3/uL (150-450); RED BLOOD COUNT 3.18 10^6/uL (3.72-5.28); TOTAL CELLS COUNTED % (AUTO) 100 %; WHITE BLOOD COUNT 18.2 10^3/uL (4.0-10.5)
[2018-12-08] MEDS ORDERED: LEVALBUTEROL HCL NEB 1.25 MG/3 ML AMPUL NEB PRN (02:35)
[2018-12-08 02:38] LABS: ALANINE AMINOTRANSFERASE 15 U/L (9-52); ALKALINE PHOSPHATASE 175 U/L (38-126); ANION GAP 12 (5-19); ASPARTATE AMINO TRANSFERASE 25 U/L (14-36); BILIRUBIN,DIRECT 1.1 mg/dL (0.0-0.4); BILIRUBIN,TOTAL 1.4 mg/dL (0.2-1.3); BLOOD UREA NITROGEN 14 mg/dL (7-20); CALCIUM 9.4 mg/dL (8.4-10.2); CARBON DIOXIDE 19 mmol/L (22-30); CHLORIDE 110 mmol/L (98-107); GLUCOSE 81 mg/dL (75-110); LIPASE 62.5 U/L (23-300); POTASSIUM 4.5 mmol/L (3.6-5.0); SODIUM 140.9 mmol/L (137-145); TOTAL PROTEIN 7.9 g/dL (6.3-8.2); TRIGLYCERIDES 121 mg/dL (<150)
[2018-12-08] MEDS ORDERED: IPRATROPIUM/ALBUTEROL 0.5-2.5 MG/3 ML AMPUL NEB ONE (02:45)
[2018-12-08 02:57] LABS: DIRECT LDL 75 mg/dL (<100)
[2018-12-08 02:58] LABS: FREE T4 (FREE THYROXINE) 1.13 ng/dL (0.78-2.19)
[2018-12-08 03:00] LABS: CREATINE KINASE MB 0.68 ng/mL (<4.55)
[2018-12-08 03:03] LABS: CREATINE KINASE < 20 U/L (30-135)
[2018-12-08 03:04] LABS: TROPONIN I < 0.012 ng/mL
[2018-12-08 03:12] LABS: THYROID STIMULATING HORMONE 2.18 uIU/mL (0.47-4.68)
[2018-12-08 03:54] LABS: URINE AMPHETAMINES SCREEN NEGATIVE; URINE BARBITURATES SCREEN NEGATIVE; URINE BENZODIAZEPINES SCREEN NEGATIVE; URINE COCAINE SCREEN NEGATIVE; URINE MARIJUANA (THC) SCREEN NEGATIVE; URINE METHADONE SCREEN NEGATIVE; URINE PHENCYCLIDINE SCREEN NEGATIVE
[2018-12-08] MEDS: MAGNESIUM SULFATE 1 GM/D5W 100 ML IV SCH ×2 (04:35→05:49)
[2018-12-08] MEDS: DILTIAZEM HCL 60 MG TABLET PO SCH ×3 (05:49→17:42)
[2018-12-08] MEDS: LACTULOSE SYRUP 20 GM/30 ML UDCUP PO SCH ×3 (05:49→21:57)
[2018-12-08] MEDS: PANTOPRAZOLE SODIUM 40 MG TABLET.DR PO SCH (05:49)
[2018-12-08] MEDS: LACTOBACILLUS ACIDOPHILUS 250 MG TAB PO SCH ×2 (05:49→17:42)
[2018-12-08] MEDS: IPRATROPIUM/ALBUTEROL 0.5-2.5 MG/3 ML AMPUL NEB SCH ×3 (07:38→20:34)
[2018-12-08 08:25] LABS: CREATINE KINASE MB 0.56 ng/mL (<4.55)
[2018-12-08 08:30] LABS: INTERNATIONAL RATION (INR) 1.28; PROTHROMBIN TIME 16.6 SEC (11.4-15.4)
[2018-12-08 08:31] LABS: PARTIAL THROMBOPLASTIN TIME 41.2 SEC (23.5-35.8)
[2018-12-08 08:33] LABS: TROPONIN I < 0.012 ng/mL
[2018-12-08] MEDS: CYANOCOBALAMIN (VITAMIN B-12) 1,000 MCG TABLET PO SCH (09:29)
[2018-12-08] MEDS: THIAMINE HCL 100 MG TABLET PO SCH (09:29)
[2018-12-08] MEDS: NYSTATIN TOPICAL POWDER 15 GM TP SCH ×2 (09:32→17:43)
[2018-12-08] MEDS: MAGNESIUM OXIDE 400 MG TABLET PO SCH (17:42)
[2018-12-08] MEDS: ACETAMINOPHEN 325 MG TABLET PO PRN (17:45)
--- NOTE | 2018-12-08 20:04 | PDOC H&P ---
History of Present Illness Admission Date/PCP: 12/07/18 23:39 ABNER WILKINS MD History of Present Illness: MAAME SAENZ is a 53 year old female, Patient was [facility] to the emergency room for evaluation of altered mental status, she has a history of alcohol liver cirrhosis,She also complained of increasing abdominal swelling, in the emergency room she was evaluated, she had abdominal paracentesis done, the finding was not consistent with spontaneous bacterial epidermidis there was associated elevated serum ammonia level, the urinalysis was grossly abnormal Past Medical History Cardiac Medical History: Reports: Atrial Fibrillation, DVT Pulmonary Medical History: Reports: Chronic Obstructive Pulmonary Disease (COPD), Intubation, Pneumonia, Respiratory Failure Denies: Tuberculosis Malignancy Medical History: Reports: Lymphoma - History of non-Hodgkin's l ymphoma diagnosed 13 years ago. Had limited chem GI Medical History: Reports: Cirrhosis Hematology: Reports: Anemia Past Surgical History Past Surgical History: Reports: Section, Hysterectomy, Orthopedic Surgery - Left hip replacement, right knee, Tonsillectomy, Tubal Ligation Denies: Pacemaker Social History Lives with: Longterm Smoking Status: Former Smoker Number of Years Smokin Frequency of Alcohol Use: None Hx Recreational Drug Use: No Drugs: None Hx Prescription Drug Abuse: No Family History Family History: Reviewed & Not Pertinent Parental Family History Reviewed: Yes Children Family History Reviewed: Yes Sibling(s) Family History Reviewed.: Yes Medication/Allergy Home Medications: Acetaminophen [Tylenol 325 mg Tablet] 650 mg PO Q4HP PRN 12/08/18 Acidoph/L.bulg/Bif.b/S.thermop [Bacid Caplet] 1 tab PO Q12 12/08/18 Cyanocobalamin (Vitamin B-12) [B-12] 1,000 mcg PO DAILY 12/08/18 Diltiazem HCl [Cardizem 60 mg Tablet] 60 mg PO Q6 12/08/18 Ipratropium/Albuterol Sulfate [Duoneb 3 ml Ampul] 3 ml NEB RTQ6HP PRN 12/08/18 Levalbuterol HCl [Xopenex Neb 1.25 mg/3 ml Ampul] 3 ml NEB RTQ4HP PRN 12/08/18 Nystatin 1 applic TOP BID 12/08/18 Pantoprazole Sodium [Protonix [address] Tablet] 40 mg PO QAM 12/08/18 Thiamine HCl [Thiamine 100 mg Tablet] 100 mg PO QAM 12/08/18 Allergies/Adverse Reactions: No Known Allergies Allergy (Verified 04/05/18 07:38) Review of Systems Constitutional: PRESENT: fatigue Eyes: ABSENT: visual disturbances Ears: ABSENT: hearing changes Cardiovascular: ABSENT: chest pain, dyspnea on exertion, edema, orthropnea, palpitations Respiratory: ABSENT: cough, hemoptysis Gastrointestinal: PRESENT: abdominal pain Genitourinary: ABSENT: dysuria, hematuria Musculoskeletal: ABSENT: joint swelling Integumentary: ABSENT: rash, wounds Neurological: ABSENT: abnormal gait, abnormal speech, confusion, dizziness, focal weakness, syncope Psychiatric: ABSENT: anxiety, depression, homidical ideation, suicidal ideation Endocrine: ABSENT: cold intolerance, heat intolerance, menstrual abnormalities, polydipsia, polyuria Hematologic/Lymphatic: ABSENT: easy bleeding, easy bruising, lymphadenopathy Physical Exam Vital Signs: Temp Pulse Resp BP Pulse Ox 97.9 F 115 H 16 103/58 L 97 12/08/18 17:02 12/08/18 17:02 12/08/18 17:02 12/08/18 17:02 12/08/18 17:02 Intake & Output 12/07/18 12/08/18 12/09/18 06:59 06:59 06:59 Intake Total 408 892 Balance 408 892 Weight 67.4 kg General appearance: PRESENT: no acute distress Head exam: PRESENT: atraumatic, normocephalic Eye exam: PRESENT: PERRLA, scleral icterus Mouth exam: PRESENT: moist, tongue midline Neck exam: PRESENT: full ROM Respiratory exam: PRESENT: clear to auscultation dawna Cardiovascular exam: PRESENT: RRR, +S1, +S2 Pulses: PRESENT: normal dorsalis pedis pul, +2 pedal pulses bilateral Vascular exam: PRESENT: normal capillary refill GI/Abdominal exam: PRESENT: normal bowel sounds, soft Rectal exam: PRESENT: deferred Extremities exam: PRESENT: pedal edema Neurological exam: PRESENT: alert, CN II-XII grossly intact Psychiatric exam: PRESENT: appropriate affect, normal mood Skin exam: PRESENT: dry, intact, warm Results Laboratory Results: 12/08/18 02:05 12/08/18 02:05 12/07/18 12/07/18 12/07/18 20:00 20:00 20:00 WBC 18.1 H RBC 2.97 L Hgb 9.1 L Hct 28.1 L MCV 94 MCH 30.5 MCHC 32.4 RDW 20.7 H Plt Count 254 Seg Neutrophils % 83.3 H Lymphocytes % 9.9 L Monocytes % 4.6 Eosinophils % 1.9 Basophils % 0.3 Absolute Neutrophils 15.1 H Absolute Lymphocytes 1.8 Absolute Monocytes 0.8 Absolute Eosinophils 0.3 Absolute Basophils 0.1 VBG pH VBG pCO2 VBG HCO3 VBG Base Excess Sodium 137.7 Potassium 4.8 Chloride 109 H Carbon Dioxide 20 L Anion Gap 9 BUN 15 Creatinine 1.21 Est GFR ( Amer) 56 L Est GFR (Non-Af Amer) 46 L Glucose 99 Lactic Acid 1.7 Calcium 8.9 Phosphorus Magnesium Total Bilirubin 1.4 H AST 37 H ALT 11 Alkaline Phosphatase 143 H Ammonia Total Protein 7.6 Albumin 2.9 L Triglycerides Cholesterol LDL Cholesterol Direct VLDL Cholesterol HDL Cholesterol Amylase Lipase 35.4 TSH Free T4 Urine Color Urine Appearance Urine pH Ur Specific [place] Urine Protein Urine Glucose (UA) Urine Ketones Urine Blood Urine Nitrite Ur Leukocyte Esterase Urine WBC (Auto) Urine RBC (Auto) Fluid Type Fluid Source Fluid Color Fluid Appearance Fluid Viscosity Fluid WBC Fluid RBC 12/07/18 12/07/18 12/07/18 20:00 20:00 20:00 WBC RBC Hgb Hct MCV MCH MCHC RDW Plt Count Seg Neutrophils % Lymphocytes % Monocytes % Eosinophils % Basophils % Absolute Neutrophils Absolute Lymphocytes Absolute Monocytes Absolute Eosinophils Absolute Basophils VBG pH 7.24 L VBG pCO2 49.6 VBG HCO3 20.8 VBG Base Excess -6.4 Sodium Potassium Chloride Carbon Dioxide Anion Gap BUN Creatinine Est GFR ( Amer) Est GFR (Non-Af Amer) Glucose Lactic Acid Calcium Phosphorus 4.4 Magnesium 0.8 L* Total Bilirubin AST ALT Alkaline Phosphatase Ammonia 80.1 H Total Protein Albumin Triglycerides Cholesterol LDL Cholesterol Direct VLDL Cholesterol HDL Cholesterol Amylase 80 Lipase Cancelled TSH Free T4 Urine Color Urine Appearance Urine pH Ur Specific [place] Urine Protein Urine Glucose (UA) Urine Ketones Urine Blood Urine Nitrite Ur Leukocyte Esterase Urine WBC (Auto) Urine RBC (Auto) Fluid Type Fluid Source Fluid Color Fluid Appearance Fluid Viscosity Fluid WBC Fluid RBC 12/07/18 12/07/18 12/07/18 20:00 20:17 20:55 WBC RBC Hgb Hct MCV MCH MCHC RDW Plt Count Seg Neutrophils % Lymphocytes % Monocytes % Eosinophils % Basophils % Absolute Neutrophils Absolute Lymphocytes Absolute Monocytes Absolute Eosinophils Absolute Basophils VBG pH VBG pCO2 VBG HCO3 VBG Base Excess Sodium Potassium Chloride Carbon Dioxide Anion Gap BUN Creatinine Est GFR ( Amer) Est GFR (Non-Af Amer) Glucose Lactic Acid Calcium Phosphorus Magnesium Total Bilirubin AST ALT Alkaline Phosphatase Ammonia Total Protein Albumin Triglycerides Cholesterol LDL Cholesterol Direct VLDL Cholesterol HDL Cholesterol Amylase Lipase TSH 2.18 Free T4 1.13 Urine Color YELLOW Urine Appearance CLOUDY Urine pH 5.0 Ur Specific [place] 1.012 Urine Protein NEGATIVE Urine Glucose (UA) NEGATIVE Urine Ketones NEGATIVE Urine Blood SMALL H Urine Nitrite POSITIVE H Ur Leukocyte Esterase LARGE H Urine WBC (Auto) >182 Urine RBC (Auto) 7 Fluid Type PERITONEAL Fluid Source ASCITES Fluid Color YELLOW Fluid Appearance CLEAR Fluid Viscosity LIQUID Fluid WBC 397 Fluid RBC 1405 12/08/18 12/08/18 12/08/18 02:05 02:05 02:05 WBC 18.2 H RBC 3.18 L Hgb 9.7 L Hct 29.8 L MCV 94 MCH 30.4 MCHC 32.4 RDW 20.0 H Plt Count 234 Seg Neutrophils % 83.0 H Lymphocytes % 9.9 L Monocytes % 4.3 Eosinophils % 2.3 Basophils % 0.5 Absolute Neutrophils 15.2 H Absolute Lymphocytes 1.8 Absolute Monocytes 0.8 Absolute Eosinophils 0.4 Absolute Basophils 0.1 VBG pH VBG pCO2 VBG HCO3 VBG Base Excess Sodium 140.9 Potassium 4.5 Chloride 110 H Carbon Dioxide 19 L Anion Gap 12 BUN 14 Creatinine 1.12 Est GFR ( Amer) > 60 Est GFR (Non-Af Amer) 51 L Glucose 81 Lactic Acid Calcium 9.4 Phosphorus Magnesium Total Bilirubin 1.4 H AST 25 ALT 15 Alkaline Phosphatase 175 H Ammonia 57.1 H Total Protein 7.9 Albumin 3.0 L Triglycerides 121 Cholesterol 134.60 LDL Cholesterol Direct 75 VLDL Cholesterol 24.0 HDL Cholesterol 25 L Amylase Lipase 62.5 TSH Free T4 Urine Color Urine Appearance Urine pH Ur Specific [place] Urine Protein Urine Glucose (UA) Urine Ketones Urine Blood Urine Nitrite Ur Leukocyte Esterase Urine WBC (Auto) Urine RBC (Auto) Fluid Type Fluid Source Fluid Color Fluid Appearance Fluid Viscosity Fluid WBC Fluid RBC 12/08/18 08:02 WBC RBC Hgb Hct MCV MCH MCHC RDW Plt Count Seg Neutrophils % Lymphocytes % Monocytes % Eosinophils % Basophils % Absolute Neutrophils Absolute Lymphocytes Absolute Monocytes Absolute Eosinophils Absolute Basophils VBG pH VBG pCO2 VBG HCO3 VBG Base Excess Sodium Potassium Chloride Carbon Dioxide Anion Gap BUN Creatinine Est GFR ( Amer) Est GFR (Non-Af Amer) Glucose Lactic Acid Calcium Phosphorus Magnesium 1.4 L Total Bilirubin AST ALT Alkaline Phosphatase Ammonia Total Protein Albumin Triglycerides Cholesterol LDL Cholesterol Direct VLDL Cholesterol HDL Cholesterol Amylase Lipase TSH Free T4 Urine Color Urine Appearance Urine pH Ur Specific [place] Urine Protein Urine Glucose (UA) Urine Ketones Urine Blood Urine Nitrite Ur Leukocyte Esterase Urine WBC (Auto) Urine RBC (Auto) Fluid Type Fluid Source Fluid Color Fluid Appearance Fluid Viscosity Fluid WBC Fluid RBC 12/07/18 12/07/18 12/08/18 20:00 20:00 02:05 Creatine Kinase 23 L < 20 L CK-MB (CK-2) 0.51 Troponin I < 0.012 12/08/18 12/08/18 12/08/18 02:05 07:35 07:35 Creatine Kinase < 20 L CK-MB (CK-2) 0.68 0.56 Troponin I < 0.012 < 0.012 Impressions: Chest X-Ray 12/07/18 20:24 IMPRESSION: 1. Unchanged dense right upper lobe chronic fibrosis. 2. Left perihilar infiltrate. This is also likely chronic, but cannot exclude a superimposed acute left perihilar pneumonia. Assessment & Plan - Diagnosis (1) Hepatic encephalopathy Is this a current diagnosis for this admission?: Yes Plan: Start patient on lactulose (2) Acute pyelonephritis Is this a current diagnosis for this admission?: Yes Plan: Start IV antibiotic (3) Alcoholic cirrhosis of liver with ascites Is this a current diagnosis for this admission?: Yes
[2018-12-08] MEDS ORDERED: CEFTRIAXONE 1 GM/D5W RTU 1 GM/50 ML RTUPB IV SCH (22:00)
[2018-12-08] MEDS ORDERED: CEFTRIAXONE 1 GM/D5W RTU 1 GM/50 ML RTUPB IV ONE (22:17)
[2018-12-09] MEDS: DILTIAZEM HCL 60 MG TABLET PO SCH ×4 (01:32→18:22)
[2018-12-09] MEDS: IPRATROPIUM/ALBUTEROL 0.5-2.5 MG/3 ML AMPUL NEB SCH ×4 (01:46→20:01)
[2018-12-09] MEDS: RINGERS SOLUTION,LACTATED 1,000 ML IV PRN (03:34)
[2018-12-09] MEDS: PANTOPRAZOLE SODIUM 40 MG TABLET.DR PO SCH (05:21)
[2018-12-09] MEDS: LACTOBACILLUS ACIDOPHILUS 250 MG TAB PO SCH ×2 (05:22→18:22)
[2018-12-09] MEDS: LACTULOSE SYRUP 20 GM/30 ML UDCUP PO SCH ×2 (05:22→13:51)
[2018-12-09 05:55] LABS: ABSOLUTE BASOPHILS # (AUTO) 0.1 10^3/uL (0.0-0.2); ABSOLUTE EOSINOPHILS # (AUTO) 0.3 10^3/uL (0.0-0.6); ABSOLUTE LYMPHOCYTES (AUTO) 1.6 10^3/uL (0.5-4.7); ABSOLUTE MONOCYTES (AUTO) 0.8 10^3/uL (0.1-1.4); ABSOLUTE NEUT (AUTO) 7.5 10^3/uL (1.7-8.2); BASOPHILS % (AUTO) 0.7 % (0-2); EOSINOPHILS % (AUTO) 3.2 % (0-6); HEMATOCRIT 25.1 % (36.0-47.0); HEMOGLOBIN 8.4 g/dL (12.0-15.5); LYMPHOCYTES % (AUTO) 15.5 % (13-45); MEAN CORPUSCULAR HEMOGLOBIN 31.2 pg (27.0-33.4); MEAN CORPUSCULAR HGB CONC 33.3 g/dL (32.0-36.0); MEAN CORPUSCULAR VOLUME 94 fl (80-97); MONOCYTES % (AUTO) 7.4 % (3-13); PLATELET COUNT 200 10^3/uL (150-450); RED BLOOD COUNT 2.68 10^6/uL (3.72-5.28); RED CELL DISTRIBUTION WIDTH 20.5 % (11.5-14.0); SEGMENTED NEUTROPHILS % (AUTO) 73.2 % (42-78); TOTAL CELLS COUNTED % (AUTO) 100 %; WHITE BLOOD COUNT 10.2 10^3/uL (4.0-10.5)
[2018-12-09 06:21] LABS: ALANINE AMINOTRANSFERASE 17 U/L (9-52); ALBUMIN 2.7 g/dL (3.5-5.0); ALKALINE PHOSPHATASE 151 U/L (38-126); ANION GAP 11 (5-19); ASPARTATE AMINO TRANSFERASE 20 U/L (14-36); BILIRUBIN,DIRECT 0.9 mg/dL (0.0-0.4); BLOOD UREA NITROGEN 10 mg/dL (7-20); CALCIUM 9.4 mg/dL (8.4-10.2); CARBON DIOXIDE 19 mmol/L (22-30); CHLORIDE 110 mmol/L (98-107); GLUCOSE 93 mg/dL (75-110); POTASSIUM 3.8 mmol/L (3.6-5.0); SODIUM 140.2 mmol/L (137-145); TOTAL PROTEIN 6.8 g/dL (6.3-8.2)
[2018-12-09] MEDS ORDERED: ONDANSETRON HCL INJ/PF 4 MG/2 ML SDV ONE (11:02)
[2018-12-09] MEDS: MAGNESIUM OXIDE 400 MG TABLET PO SCH (11:05)
[2018-12-09] MEDS: CYANOCOBALAMIN (VITAMIN B-12) 1,000 MCG TABLET PO SCH (11:05)
[2018-12-09] MEDS: THIAMINE HCL 100 MG TABLET PO SCH (11:05)
[2018-12-09] MEDS: NYSTATIN TOPICAL POWDER 15 GM TP SCH ×2 (11:06→18:22)
[2018-12-09] MEDS: ACETAMINOPHEN 325 MG TABLET PO PRN (11:14)
[2018-12-09] MEDS ORDERED: ONDANSETRON HCL INJ/PF 4 MG/2 ML SDV IV PRN (11:57)
--- NOTE | 2018-12-09 12:07 | PDOC TRANSFER SUMMARY ---
General - Admit/Disc Date/PCP Admission Date/Primary Care Provider: 12/07/18 23:39 ABNER WILKINS MD Discharge Date: 12/09/18 - Discharge Diagnosis (1) Hepatic encephalopathy Is this a current diagnosis for this admission?: Yes (2) Acute pyelonephritis Is this a current diagnosis for this admission?: Yes (3) Alcoholic cirrhosis of liver with ascites Is this a current diagnosis for this admission?: Yes - Additional Information Prescriptions: Ceftriaxone 1 gm/D5w RTU [Rocephin RTU 1 gm/D5w 50 ml Premix] 1 gm IV DAILY #10 ml Home Medications: Acetaminophen [Tylenol 325 mg Tablet] 650 mg PO Q4HP PRN 12/08/18 Acidoph/L.bulg/Bif.b/S.thermop [Bacid Caplet] 1 tab PO Q12 12/08/18 Cyanocobalamin (Vitamin B-12) [B-12] 1,000 mcg PO DAILY 12/08/18 Diltiazem HCl [Cardizem 60 mg Tablet] 60 mg PO Q6 12/08/18 Ipratropium/Albuterol Sulfate [Duoneb 3 ml Ampul] 3 ml NEB RTQ6HP PRN 12/08/18 Levalbuterol HCl [Xopenex Neb 1.25 mg/3 ml Ampul] 3 ml NEB RTQ4HP PRN 12/08/18 Nystatin 1 applic TOP BID 12/08/18 Pantoprazole Sodium [Protonix [address] Tablet] 40 mg PO QAM 12/08/18 Thiamine HCl [Thiamine 100 mg Tablet] 100 mg PO QAM 12/08/18 Ceftriaxone 1 gm/D5w RTU [Rocephin RTU 1 gm/D5w 50 ml Premix] 1 gm IV DAILY #10 ml 12/09/18 Lactulose [Cephulac Syrup 20 gm/30 ml Udcup] 20 gm PO Q8 #0 udc 12/09/18 Magnesium Oxide [Mag-Ox 400 mg Tablet] 400 mg PO DAILY #0 tablet 12/09/18 History of Present Illness Admission Date/PCP: 12/07/18 23:39 ABNER WILKINS MD History of Present Illness: MAAME SAENZ is a 53 year old female, Patient was transferred from the group home to the emergency room for evaluation of altered mental status, she has a history of alcohol liver cirrhosis,She also complained of increasing abdominal swelling, in the emergency room she was evaluated, she had abdominal paracentesis done, the finding was not consistent with spontaneous bacterial epidermidis there was associated elevated serum ammonia level, the urinalysis was grossly abnormal Hospital Course Hospital Course: Patient was admitted for the management of hepatic encephalopathy, gram-negative UTI, she was treated with p.o. lactulose, patient regained full orientation in very short order, she also has UTI the urine culture grew gram-negative yazmni specific pathogen is not known yet. She is back to baseline, she will be transferred back to group home today to continue intravenous ceftriaxone for 10 days. In the emergency room she underwent abdominal paracentesis because spontaneous bacterial peritonitis was considered as an option for the etiology of the sepsis like. This was rule out, patient does not have sepsis, she has underlying alcohol liver disease/cirrhosis Physical Exam Vital Signs: Temp Pulse Resp BP Pulse Ox 97.8 F 107 H 19 102/65 97 12/09/18 11:26 12/09/18 11:26 12/09/18 11:26 12/09/18 11:26 12/09/18 11:26 Intake & Output 12/08/18 12/09/18 12/10/18 06:59 06:59 06:59 Intake Total 408 2129 Output Total 100 Balance 408 202 Weight 67.4 kg 68.4 kg General appearance: PRESENT: no acute distress Eye exam: PRESENT: scleral icterus Respiratory exam: PRESENT: clear to auscultation dawna Cardiovascular exam: PRESENT: +S1, +S2 GI/Abdominal exam: PRESENT: distended, soft Neurological exam: PRESENT: alert, CN II-XII grossly intact Results Laboratory Results: 12/09/18 05:09 12/09/18 05:09 12/09/18 12/09/18 05:09 05:09 WBC 10.2 RBC 2.68 L Hgb 8.4 L Hct 25.1 L MCV 94 MCH 31.2 MCHC 33.3 RDW 20.5 H Plt Count 200 Seg Neutrophils % 73.2 Lymphocytes % 15.5 Monocytes % 7.4 Eosinophils % 3.2 Basophils % 0.7 Absolute Neutrophils 7.5 Absolute Lymphocytes 1.6 Absolute Monocytes 0.8 Absolute Eosinophils 0.3 Absolute Basophils 0.1 Sodium 140.2 Potassium 3.8 Chloride 110 H Carbon Dioxide 19 L Anion Gap 11 BUN 10 Creatinine 1.04 Est GFR ( Amer) > 60 Est GFR (Non-Af Amer) 55 L Glucose 93 Calcium 9.4 Total Bilirubin 1.0 AST 20 ALT 17 Alkaline Phosphatase 151 H Total Protein 6.8 Albumin 2.7 L 12/07/18 12/07/18 12/08/18 20:00 20:00 02:05 Creatine Kinase 23 L < 20 L CK-MB (CK-2) 0.51 Troponin I < 0.012 12/08/18 12/08/18 12/08/18 02:05 07:35 07:35 Creatine Kinase < 20 L CK-MB (CK-2) 0.68 0.56 Troponin I < 0.012 < 0.012 Impressions: Chest X-Ray 12/07/18 20:24 IMPRESSION: 1. Unchanged dense right upper lobe chronic fibrosis. 2. Left perihilar infiltrate. This is also likely chronic, but cannot exclude a superimposed acute left perihilar pneumonia. Qualifiers - * PATIENT BEING DISCHARGED WITH ANY OF THE FOLLOWING DIAGNOSIS: No Acute Heart Failure Is this a Heart Failure Patient?: No
[2018-12-09 20:28] VITALS: BP 106/70
== END 2018-12-09 20:36 | DRG 442 ==
LOC: ER 19:10 → EH 23:39 → 3W 12-08 01:17
PROVIDERS: ADMIT Internal Medicine; ATTEND Internal Medicine
PROC: 0W9G3ZZ Drainage of Peritoneal Cavity, Percutaneous Approach (ICD-10-PCS; principal; 2018-12-07)
DX: K72.90 Hepatic failure, unspecified without coma (principal); N10 Acute pyelonephritis; C85.90 Non-Hodgkin lymphoma, unspecified, unspecified site; K70.31 Alcoholic cirrhosis of liver with ascites; J44.9 Chronic obstructive pulmonary disease, unspecified; I48.91 Unspecified atrial fibrillation; Z96.642 Presence of left artificial hip joint; Z96.651 Presence of right artificial knee joint; Z86.718 Personal history of other venous thrombosis and embolism
CPT/HCPCS: 36415; 71045; 80048; 80053; 80061; 80076; 80307; 81001; 82140; 82150; 82550; 82553; 82803; 83036; 83605; 83690; 83735; 84100; 84439; 84443; 84484; 85025; 85610; 85730; 87040; 87070; 87075; 87086; 87088; 87186; 87205; 89050; 96360; 99285; J0696; J2405; J3475; J3490; J7120; J7620

== ENCOUNTER 2019-01-19 17:00 | Emergency (ER) | payer MEDICAID ==
[2019-01-19 17:09] VITALS: BP 125/76
--- NOTE | 2019-01-19 18:55 | ER Document Report ---
ED Medical Screen (RME) - General Chief Complaint: Abnormal Lab Results Stated Complaint: ABNORMAL LABS Time Seen by Provider: 01/19/19 18:50 Primary Care Provider: ABNER WILKINS MD [Primary Care Provider] - Follow up as needed Mode of Arrival: Wheelchair Information source: Patient Notes: Patient presents emergency department reports that Dr. Wilkins's office called and told her to come here for anemia and she needs a blood transfusion. Labs drawn on Wednesday. Reports she had blood transfusions in the past. Reports she is felt a little sluggish and very cold. She reports she wears socks to bed at night. No other complaints. I have greeted and performed a rapid initial assessment of this patient. A comprehensive ED assessment and evaluation of the patient, analysis of test results and completion of the medical decision making process will be conducted by additional ED providers. Dictation of this chart was performed using voice recognition software; therefore, there may be some unintended grammatical errors. TRAVEL OUTSIDE OF THE [place] IN LAST 30 DAYS: No - Related Data Allergies/Adverse Reactions: No Known Allergies Allergy (Verified 01/19/19 17:02) Past Medical History - Past Medical History Cardiac Medical History: Reports: Hx Atrial Fibrillation, Hx DVT Pulmonary Medical History: Reports: Hx COPD, Hx Pneumonia, Hx Intubation, Hx Respiratory Failure Denies: Hx Tuberculosis Neurological Medical History: Denies: Hx Cerebrovascular Accident Renal/ Medical History: Denies: Hx Peritoneal Dialysis Malignancy Medical History: Reports: Hx Lymphoma - History of non-Hodgkin's lymphoma diagnosed 13 years ago. Had limited chem GI Medical History: Reports: Hx Cirrhosis, Hx Liver Failure Psychiatric Medical History: Denies: Hx Depression Past Surgical History: Reports: Hx Section, Hx Hysterectomy, Hx Ortho pedic Surgery - Left hip replacement, right knee, Hx Tonsillectomy, Hx Tubal Ligation. Denies: Hx Pacemaker - Immunizations Hx Diphtheria, Pertussis, Tetanus Vaccination: Yes History of Influenza Vaccine for 05/2017 - 09/2017 Season: No Physical Exam - Vital signs Vitals: Temp Pulse Resp BP Pulse Ox 99.3 F 129 H 14 125/76 98 01/19/19 17:08 01/19/19 17:08 01/19/19 17:08 01/19/19 17:08 01/19/19 17:08 Course - Vital Signs Vital signs: Temp Pulse Resp BP Pulse Ox 99.3 F 129 H 14 125/76 98 01/19/19 17:08 01/19/19 17:08 01/19/19 17:08 01/19/19 17:08 01/19/19 17:08 Doctor's Discharge - Discharge Referrals: ABNER WILKINS MD [Primary Care Provider] - Follow up as needed
[2019-01-19 19:25] LABS: ABSOLUTE BASOPHILS # (AUTO) 0.2 10^3/uL (0.0-0.2); ABSOLUTE EOSINOPHILS # (AUTO) 0.3 10^3/uL (0.0-0.6); ABSOLUTE LYMPHOCYTES (AUTO) 1.9 10^3/uL (0.5-4.7); ABSOLUTE MONOCYTES (AUTO) 0.7 10^3/uL (0.1-1.4); ABSOLUTE NEUT (AUTO) 5.3 10^3/uL (1.7-8.2); BASOPHILS % (AUTO) 1.8 % (0-2); EOSINOPHILS % (AUTO) 3.5 % (0-6); HEMATOCRIT 24.1 % (36.0-47.0); LYMPHOCYTES % (AUTO) 22.5 % (13-45); MEAN CORPUSCULAR HGB CONC 33.3 g/dL (32.0-36.0); MEAN CORPUSCULAR VOLUME 99 fl (80-97); MONOCYTES % (AUTO) 8.8 % (3-13); PLATELET COUNT 327 10^3/uL (150-450); RED BLOOD COUNT 2.44 10^6/uL (3.72-5.28); RED CELL DISTRIBUTION WIDTH 20.4 % (11.5-14.0); SEGMENTED NEUTROPHILS % (AUTO) 63.4 % (42-78); TOTAL CELLS COUNTED % (AUTO) 100 %; WHITE BLOOD COUNT 8.3 10^3/uL (4.0-10.5)
[2019-01-19 19:44] LABS: ALANINE AMINOTRANSFERASE 17 U/L (9-52); ALBUMIN 3.8 g/dL (3.5-5.0); ALKALINE PHOSPHATASE 198 U/L (38-126); ANION GAP 11 (5-19); ASPARTATE AMINO TRANSFERASE 34 U/L (14-36); BILIRUBIN,DIRECT 0.6 mg/dL (0.0-0.4); BILIRUBIN,TOTAL 0.8 mg/dL (0.2-1.3); BLOOD UREA NITROGEN 12 mg/dL (7-20); CALCIUM 10.2 mg/dL (8.4-10.2); CARBON DIOXIDE 21 mmol/L (22-30); CHLORIDE 110 mmol/L (98-107); GLUCOSE 107 mg/dL (75-110); POTASSIUM 4.4 mmol/L (3.6-5.0); SODIUM 141.6 mmol/L (137-145); TOTAL PROTEIN 8.6 g/dL (6.3-8.2)
== END 2019-01-19 21:50 | disposition left against medical advice (07) ==
LOC: ER 17:00
DX: D64.9 Anemia, unspecified (principal); I48.91 Unspecified atrial fibrillation; J44.9 Chronic obstructive pulmonary disease, unspecified; Z86.718 Personal history of other venous thrombosis and embolism; Z90.710 Acquired absence of both cervix and uterus; Z96.642 Presence of left artificial hip joint; Z98.51 Tubal ligation status
CPT/HCPCS: 36415; 80053; 85025; 86850; 86900; 86901; 99281

== ENCOUNTER 2019-01-24 10:35 | Observation (INO) | payer MEDICAID ==
[2019-01-24 12:25] LABS: MEAN CORPUSCULAR HEMOGLOBIN 33.7 pg (27.0-33.4); MEAN CORPUSCULAR HGB CONC 33.8 g/dL (32.0-36.0); MEAN CORPUSCULAR VOLUME 100 fl (80-97); PLATELET COUNT 235 10^3/uL (150-450); RED CELL DISTRIBUTION WIDTH 18.4 % (11.5-14.0); WHITE BLOOD COUNT 9.2 10^3/uL (4.0-10.5)
[2019-01-24 12:28] LABS: HEMOGLOBIN 7.1 g/dL (12.0-15.5)
[2019-01-24 12:49] LABS: ALANINE AMINOTRANSFERASE 14 U/L (9-52); ALBUMIN 3.1 g/dL (3.5-5.0); ALKALINE PHOSPHATASE 172 U/L (38-126); ANION GAP 9 (5-19); ASPARTATE AMINO TRANSFERASE 27 U/L (14-36); BILIRUBIN,DIRECT 0.5 mg/dL (0.0-0.4); BILIRUBIN,TOTAL 0.6 mg/dL (0.2-1.3); BLOOD UREA NITROGEN 17 mg/dL (7-20); CALCIUM 9.7 mg/dL (8.4-10.2); CARBON DIOXIDE 19 mmol/L (22-30); CHLORIDE 108 mmol/L (98-107); GLUCOSE 106 mg/dL (75-110); IRON(TIBC) 89.4 ug/dL (37-170); POTASSIUM 4.5 mmol/L (3.6-5.0); SODIUM 136.1 mmol/L (137-145); TOTAL PROTEIN 7.2 g/dL (6.3-8.2)
[2019-01-24] MEDS ORDERED: TRAMADOL HCL 50 MG TABLET PO PRN (17:31)
[2019-01-24 19:27] VITALS: BP 130/81
--- NOTE | 2019-01-24 20:41 | PDOC H&P ---
History of Present Illness Admission Date/PCP: 01/24/19 10:35 ABNER WILKINS MD History of Present Illness: MAAME SAENZ is a 53 year old female, She has alcohol liver disease, she was admitted essentially to be transfused with packed red blood cells because of anemia, there is no active bleeding Past Medical History Cardiac Medical History: Reports: Atrial Fibrillation, DVT Pulmonary Medical History: Reports: Chronic Obstructive Pulmonary Disease (COPD), Intubation, Pneumonia, Respiratory Failure Denies: Tuberculosis Malignancy Medical History: Reports: Lymphoma - History of non-Hodgkin's lymphoma diagnosed 13 years ago. Had limited chem GI Medical History: Reports: Cirrhosis Psychiatric Medical History: Denies: Depression Hematology: Reports: Anemia Past Surgical History Past Surgical History: Reports: Section, Hysterectomy, Orthopedic Surgery - Left hip replacement, right knee, Tonsillectomy, Tubal Ligation Denies: Pacemaker Social History Smoking Status: Former Smoker Frequency of Alcohol Use: None Hx Recreational Drug Use: No Drugs: None Hx Prescription Drug Abuse: No Family History Family History: Reviewed & Not Pertinent Parental Family History Reviewed: Yes Children Family History Reviewed: Yes Sibling(s) Family History Reviewed.: Yes Medication/Allergy Home Medications: RX: Cyanocobalamin (Vitamin B-12) [B-12] 1,000 mcg PO DAILY 12/08/18 RX: Diltiazem HCl [Cardizem 60 mg Tablet] 60 mg PO Q6 12/08/18 RX: Pantoprazole Sodium [Protonix [address] Tablet] 40 mg PO QAM 12/08/18 RX: Thiamine HCl [Thiamine 100 mg Tablet] 100 mg PO QAM 12/08/18 RX: Magnesium Oxide [Mag-Ox 400 mg Tablet] 400 mg PO DAILY #0 tablet 12/09/18 L. Acidophilus/L.bulgaricus [Floranex Tablet] 1 each PO Q12 01/24/19 RX: Megestrol Acetate 10 ml PO DAILY 01/24/19 Tiotropium Br/Olodaterol HCl [Stiolto Respimat Inhal [place] [address]] 2 puff IH DAILY 01/24/19 Allergies/Adverse Reactions: No Known Allergies Allergy (Verified 01/19/19 17:02) Review of Systems Constitutional: ABSENT: chills, fever(s), headache(s), weight gain, weight loss Eyes: ABSENT: visual disturbances Ears: ABSENT: hearing changes Cardiovascular: ABSENT: chest pain, dyspnea on exertion, edema, orthropnea, palpitations Respiratory: ABSENT: cough, hemoptysis Gastrointestinal: ABSENT: abdominal pain, constipation, diarrhea, hematemesis, hematochezia, nausea, vomiting Genitourinary: ABSENT: dysuria, hematuria Musculoskeletal: ABSENT: joint swelling Integumentary: ABSENT: rash, wounds Neurological: ABSENT: abnormal gait, abnormal speech, confusion, dizziness, focal weakness, syncope Psychiatric: ABSENT: anxiety, depression, homidical ideation, suicidal ideation Endocrine: ABSENT: cold intolerance, heat intolerance, menstrual abnormalities, polydipsia, polyuria Hematologic/Lymphatic: ABSENT: easy bleeding, easy bruising, lymphadenopathy Physical Exam Vital Signs: Temp Pulse Resp BP Pulse Ox 98.0 F 103 H 18 130/81 H 97 01/24/19 19:31 01/24/19 19:31 01/24/19 19:31 01/24/19 19:31 01/24/19 19:31 Intake & Output 01/23/19 01/24/19 01/25/19 06:59 06:59 06:59 Intake Total 1275 Output Total 300 Balance 975 Weight 66.7 kg General appearance: PRESENT: no acute distress, well-developed, well-nourished Head exam: PRESENT: atraumatic, normocephalic Eye exam: PRESENT: conjunctiva pink, EOMI, PERRLA Ear exam: PRESENT: normal external ear exam Mouth exam: PRESENT: moist, tongue midline Neck exam: PRESENT: full ROM. ABSENT: carotid bruit, JVD, lymphadenopathy, thyromegaly Respiratory exam: PRESENT: clear to auscultation dawna Cardiovascular exam: PRESENT: RRR, +S1, +S2 Pulses: PRESENT: normal dorsalis pedis pul, +2 pedal pulses bilateral Vascular exam: PRESENT: normal capillary refill GI/Abdominal exam: PRESENT: normal bowel sounds, soft Rectal exam: PRESENT: deferred Neurological exam: PRESENT: alert, awake, oriented to person, oriented to place, oriented to time, oriented to situation, CN II-XII grossly intact Psychiatric exam: PRESENT: appropriate affect, normal mood Skin exam: PRESENT: dry, intact, warm Results Laboratory Results: 01/24/19 12:12 01/24/19 12:12 01/24/19 01/24/19 01/24/19 12:12 12:12 12:12 WBC 9.2 RBC 2.10 L Hgb 7.1 L Hct 21.0 L MCV 100 H MCH 33.7 H MCHC 33.8 RDW 18.4 H Plt Count 235 Sodium 136.1 L Potassium 4.5 Chloride 108 H Carbon Dioxide 19 L Anion Gap 9 BUN 17 Creatinine 1.17 Est GFR ( Amer) 58 L Est GFR (Non-Af Amer) 48 L Glucose 106 Calcium 9.7 Iron 89.4 TIBC 246 L % Saturation 36 Ferritin 701.00 H Total Bilirubin 0.6 AST 27 ALT 14 Alkaline Phosphatase 172 H Total Protein 7.2 Albumin 3.1 L Blood Type B POSITIVE Antibody Screen NEGATIVE Assessment & Plan - Diagnosis (1) Anemia Qualifiers: Anemia type: unspecified type Qualified Code(s): D64.9 - Anemia, unsp ecified Is this a current diagnosis for this admission?: Yes Plan: She is admitted to be transfused with packed red blood cells
--- NOTE | 2019-01-24 20:42 | PDOC DISCHARGE SUMMARY ---
General - Admit/Disc Date/PCP Admission Date/Primary Care Provider: 01/24/19 10:35 ABNER WILKINS MD Discharge Date: 01/24/19 - Discharge Diagnosis (1) Anemia Is this a current diagnosis for this admission?: Yes - Additional Information Home Medications: Cyanocobalamin (Vitamin B-12) [B-12] 1,000 mcg PO DAILY 12/08/18 Diltiazem HCl [Cardizem 60 mg Tablet] 60 mg PO Q6 12/08/18 Pantoprazole Sodium [Protonix [address] Tablet] 40 mg PO QAM 12/08/18 Thiamine HCl [Thiamine 100 mg Tablet] 100 mg PO QAM 12/08/18 Magnesium Oxide [Mag-Ox 400 mg Tablet] 400 mg PO DAILY #0 tablet 12/09/18 L. Acidophilus/L.bulgaricus [Floranex Tablet] 1 each PO Q12 01/24/19 Megestrol Acetate 10 ml PO DAILY 01/24/19 Tiotropium Br/Olodaterol HCl [Stiolto Respimat Inhal [place]] 2 puff IH DAILY 01/24/19 History of Present Illness History of Present Illness: MAAME SAENZ is a 53 year old female, She has alcohol liver disease, she was admitted essentially to be transfused with packed red blood cells because of anemia, there is no active bleeding Hospital Course Hospital Course: She was transfused with packed red blood cells there was no complication Physical Exam Vital Signs: Temp Pulse Resp BP Pulse Ox 98.0 F 103 H 18 130/81 H 97 01/24/19 19:31 01/24/19 19:31 01/24/19 19:31 01/24/19 19:31 01/24/19 19:31 Intake & Output 01/23/19 01/24/19 01/25/19 06:59 06:59 06:59 Intake Total 1275 Output Total 300 Balance 975 Weight 66.7 kg General appearance: PRESENT: no acute distress, well-developed, well-nourished Head exam: PRESENT: atraumatic, normocephalic Eye exam: PRESENT: conjunctiva pink, EOMI, PERRLA. ABSENT: scleral icterus Ear exam: PRESENT: normal external ear exam Mouth exam: PRESENT: moist, tongue midline Neck exam: PRESENT: full ROM. ABSENT: carotid bruit, JVD, lymphadenopathy, thyromegaly Cardiovascular exam: PRESENT: RRR. ABSENT: diastolic murmur, rubs, systolic murmur Pulses: PRESENT: normal dorsalis pedis pul, +2 pedal pulses bilateral Vascular exam: PRESENT: normal capillary refill GI/Abdominal exam: PRESENT: normal bowel sounds, soft. ABSENT: distended, guarding, mass, organolmegaly, rebound, tenderness Rectal exam: PRESENT: deferred Neurological exam: PRESENT: alert, awake, oriented to person, oriented to place, oriented to time, oriented to situation, CN II-XII grossly intact. ABSENT: motor sensory deficit Psychiatric exam: PRESENT: appropriate affect, normal mood. ABSENT: homicidal ideation, suicidal ideation Skin exam: PRESENT: dry, intact, warm. ABSENT: cyanosis, rash Results Laboratory Results: 01/24/19 12:12 01/24/19 12:12 01/24/19 01/24/19 01/24/19 12:12 12:12 12:12 WBC 9.2 RBC 2.10 L Hgb 7.1 L Hct 21.0 L MCV 100 H MCH 33.7 H MCHC 33.8 RDW 18.4 H Plt Count 235 Sodium 136.1 L Potassium 4.5 Chloride 108 H Carbon Dioxide 19 L Anion Gap 9 BUN 17 Creatinine 1.17 Est GFR ( Amer) 58 L Est GFR (Non-Af Amer) 48 L Glucose 106 Calcium 9.7 Iron 89.4 TIBC 246 L % Saturation 36 Ferritin 701.00 H Total Bilirubin 0.6 AST 27 ALT 14 Alkaline Phosphatase 172 H Total Protein 7.2 Albumin 3.1 L Blood Type B POSITIVE Antibody Screen NEGATIVE Qualifiers - * PATIENT BEING DISCHARGED WITH ANY OF THE FOLLOWING DIAGNOSIS: No VTE patient discharged on overlapping Therapy?: No Reason(s) for not prescribing Overlap Therapy:: Not indicated Stroke Pt being discharged on Anti-thrombolytic therapy?: No Reason(s) for not prescribing Anti-thrombolytic therapy:: Not indicated Stroke Pt being discharged on Anti-coagulation therapy?: No Reason(s) for not prescribing Anti-coagulation therapy:: Not indicated Stroke Pt being discharged on Statins?: No Reason(s) for not prescribing Statins therapy:: Not indicated AL Pt being discharged on Aspirin therapy?: No Reason(s) for not prescribing Aspirin therapy:: Not indicated AL Pt being discharged on Statins?: No Reason(s) for not prescribing Statin therapy:: Not indicated AL Pt discharged ACEI/ARBS?: No Reason(s) for not prescribing ACEI/ARBS:: Not indicated Acute Heart Failure - Is this a Heart Failure Patient?: No
[2019-01-24] MEDS ORDERED: (PENDING PHARMACY ID) (Megestrol Acetate [Megestrol Acetate] 10 ML) PO SCH (20:45)
[2019-01-24] MEDS ORDERED: (PENDING PHARMACY ID) (Tiotropium Br/Olodaterol Hcl [Stiolto Respimat Inhal Spray] 2 PUFF) IH SCH (20:45)
[2019-01-24] MEDS ORDERED: DILTIAZEM HCL 60 MG TABLET PO SCH (20:45)
[2019-01-24 21:55] LABS: ABSOLUTE BASOPHILS # (AUTO) 0.1 10^3/uL (0.0-0.2); ABSOLUTE EOSINOPHILS # (AUTO) 0.2 10^3/uL (0.0-0.6); ABSOLUTE LYMPHOCYTES (AUTO) 1.9 10^3/uL (0.5-4.7); ABSOLUTE MONOCYTES (AUTO) 0.7 10^3/uL (0.1-1.4); BASOPHILS % (AUTO) 1.4 % (0-2); EOSINOPHILS % (AUTO) 2.3 % (0-6); LYMPHOCYTES % (AUTO) 21.1 % (13-45); MONOCYTES % (AUTO) 7.6 % (3-13); PLATELET COUNT 231 10^3/uL (150-450); RED BLOOD COUNT 2.97 10^6/uL (3.72-5.28); RED CELL DISTRIBUTION WIDTH 21.9 % (11.5-14.0); SEGMENTED NEUTROPHILS % (AUTO) 67.6 % (42-78); TOTAL CELLS COUNTED % (AUTO) 100 %; WHITE BLOOD COUNT 8.9 10^3/uL (4.0-10.5)
[2019-01-24] MEDS ORDERED: BULGARICUS PO SCH (22:00)
[2019-01-24] MEDS ORDERED: ACIDOPHILUS PO SCH (22:00)
[2019-01-24] MEDS ORDERED: LACTOBACILLUS ACIDOPHILUS 250 MG TAB PO SCH (22:00)
[2019-01-24 22:18] LABS: HEMOGLOBIN 9.5 g/dL (12.0-15.5); MEAN CORPUSCULAR VOLUME 94 fl (80-97)
[2019-01-25] MEDS ORDERED: THIAMINE HCL 100 MG TABLET PO SCH (08:00)
[2019-01-25] MEDS ORDERED: PANTOPRAZOLE SODIUM 40 MG TABLET.DR PO SCH (08:00)
[2019-01-25] MEDS ORDERED: CYANOCOBALAMIN (VITAMIN B-12) 1,000 MCG TABLET PO SCH (10:00)
[2019-01-25] MEDS ORDERED: MAGNESIUM OXIDE 400 MG TABLET PO SCH (10:00)
[2019-01-25] MEDS ORDERED: MEGESTROL ACETATE SUSP 400 MG/10 ML UDCUP PO SCH (10:00)
== END 2019-01-24 23:25 | disposition home or self-care (01) ==
LOC: 3S 10:35
PROVIDERS: ADMIT Internal Medicine; ATTEND Internal Medicine
PROC: 30233N1 Transfusion of Nonautologous Red Blood Cells into Peripheral Vein, Percutaneous Approach (ICD-10-PCS; principal; 2019-01-24)
DX: D64.9 Anemia, unspecified (principal); K70.9 Alcoholic liver disease, unspecified; I48.91 Unspecified atrial fibrillation; Z86.718 Personal history of other venous thrombosis and embolism; J44.9 Chronic obstructive pulmonary disease, unspecified; Z85.72 Personal history of non-Hodgkin lymphomas; Z90.710 Acquired absence of both cervix and uterus; Z87.891 Personal history of nicotine dependence; Z79.899 Other long term (current) drug therapy
CPT/HCPCS: 86900; 86901; 36415; 36430; 86850; 86922; 82728; 83540; 83550; 85027; 80076; 80048; 86920; G0378; G0379; P9016

== ENCOUNTER → 2019-05-24 | Outpatient (CLI) | payer MEDICAID ==
--- NOTE | 2019-05-24 16:13 | WOMENS IMAGING REPORT ---
EXAM DESCRIPTION: 3D SCREENING MAMMO BILAT COMPLETED DATE/TIME: 05/24/2019 12:59 pm REASON FOR STUDY: ROUTINE BILATERAL SCREENING;Z12.31 Z12.31 ENCNTR SCREEN MAMMOGRAM FOR MALIGNANT N EOPLASM OF TITO COMPARISON: Multiple since 2011 EXAM PARAMETERS: Views: Standard craniocaudal and mediolateral oblique views of each breast recorded using digital acquisition and breast tomosynthesis. Read with the assistance of CAD. .[facility] - [employer] Lathe Operator Contact Lens Version 9.2 LIMITATIONS: None. FINDINGS: No suspicious masses, suspicious calcifications or architectural distortion. No areas of c oncern. IMPRESSION: NEGATIVE MAMMOGRAM. BIRADS 1. BREAST DENSITY: b. There are scattered areas of fibroglandular density. BIRAD: ASSESSMENT: 1 NEGATIVE RECOMMENDATION: ROUTINE SCREENING Please continue yearly bilateral screening mammography/tomosynthesis in May 2020 COMMENT: The patient has been notified of the results by letter per MQSA requirements. Additional no tification policies are in place for contacting patient with suspicious or incomplete findings. Quality ID #[id number]: The [employer] recommends an annual screening mammogram for women aged 40 years or over. This facility utilizes a reminder system to ensure that all patients receive reminder letters, and/or direct phone calls for appointments. This includes reminders for routine scr eening mammograms, diagnostic mammograms, or other Breast Imaging Interventions when appropriate. Th is patient will be placed in the appropriate reminder system. TECHNICAL DOCUMENTATION: FINDING NUMBER: (1) ASSESSMENT: (1) JOB ID: [id number] [employer]- All Rights Reserved Reading location - IP/workstation name: [email or web address]
== END ==
LOC: WI 11:35
PROVIDERS: ATTEND Internal Medicine
DX: Z12.31 Encounter for screening mammogram for malignant neoplasm of breast (principal)
CPT/HCPCS: 77063; 77067

== ENCOUNTER → 2020-08-21 | Outpatient (CLI) | payer MEDICAID ==
--- NOTE | 2020-08-21 12:27 | RADIOLOGY REPORT (SQ) ---
EXAM DESCRIPTION: ANKLE LEFT AP/LATERAL IMAGES COMPLETED DATE/TIME: 08/21/2020 11:51 am REASON FOR STUDY: PAIN IN LEFT ANKLE AND JOINTS M25.572 PAIN IN LEFT ANKLE AND JOINTS OF LEFT FOOT COMPARISON: None. NUMBER OF VIEWS: Two views. TECHNIQUE: AP and lateral radiographic images acquired of the left ankle. LIMITATIONS: None. FINDINGS: MINERALIZATION: Osteopenia. BONES: No acute fracture or dislocation. No worrisome bone lesions. JOINTS: No effusions. SOFT TISSUES: No soft tissue swelling. No foreign body. OTHER: No other significant finding. IMPRESSION: NEGATIVE STUDY OF THE LEFT ANKLE. NO RADIOGRAPHIC EVIDENCE OF ACUTE INJURY. TECHNICAL DOCUMENTATION: JOB ID: [id number] 2010 [employer]- All Rights Reserved Reading location - IP/workstation name: [email or web address]
== END ==
LOC: RAD 11:16
PROVIDERS: ATTEND Internal Medicine
DX: M25.572 Pain in left ankle and joints of left foot (principal); M85.872 Other specified disorders of bone density and structure, left ankle and foot